=== PATIENT | female | born 1960 | race Caucasian/White ===

== ENCOUNTER 2020-10-28 00:18 | Inpatient (IN) | payer MEDICARE, MEDICAID, SELFPAY ==
--- NOTE | 2020-10-28 | ECG_ITS ---
Test Reason : TACHY, PROLNG QTC Blood Pressure : / mmHG Vent. Rate : 094 BPM Atrial Rate : 094 BPM P-R Int : 120 ms QRS Dur : 076 ms QT Int : 318 ms P-R-T Axes : 062 010 061 degrees QTc Int : 397 ms Poor data quality Normal sinus rhythm Nonspecific T wave abnormality Abnormal ECG No previous ECGs available Referred By: Danielle Dawkins Electronically Signed By:JOANNE TAI MD
[2020-10-28 02:08] VITALS: BP 127/66; PULSE 74; RESP 16; TEMP 36.6; O2SAT 95
--- NOTE | 2020-10-28 02:54 | PC.ADMIT ---
Addendum entered by Juanjose Miles RN 10/28/20 06:26: Allergy to Haldol Addendum entered by Juanjose Miles RN 10/28/20 03:10: Per crisis, Kae thinks she lives with her family and it's 1959. Kae may return to [facility] upon d/c. Diagnoses are Schizophrenia, Bipolar d/o, IDDM, Generalized Anxiety d/o,Hx Hyperlipidemia, GERD, Hypothyroidism and she was diagnosed with a UTI in the ED and is currently on keflex 500mg PO q12, last given 1500 10/27/20. Original Note: On 10/28 @ 0145 Pt came to the floor on a stretcher. Pt transferred from [facility]. Pt had to be moved from stretcher to bed because she would not move, Pt would respond to sternal rubs and force her eyes closed when trying and lift her eye lids. Pt did not participate in admission. Admission done with crisis and medical record. Pt resides at [facility] where she had altered mental status, was not sleeping and not orientated to time.
--- NOTE | 2020-10-28 03:30 | MHC.CARE ---
Pt was transported from [facility] for admission to . Pt was sent from [facility] on a Sect 12a for transportation that was not signed by a physician. Sect 12a was not valid, requiring a new one to be completed and signed. This typewriters functional tester contacted [facility] ED and spoke with the nurse, who stated and what would you like me to do? With the assistance of an cryptographic vulnerability analyst an attempt was made to engage the pt, who has been selectively catatonic, to sign the CV. This typewriters functional tester then contacted [facility] supervisor stripping to discuss pt's assessments and MSUs in order to complete a new Sect 12a with the [facility] ED Physician after assessing the pt and reviewing the documentation and medical workup from [facility]. Sect 12a & 12b were signed by Jessica Jhaveri DO following an assessment of the pt and review of symptoms.
[2020-10-28 05:58] LABS: Glucose, Whole Blood 141 mg/dL (60-115)
[2020-10-28 06:41] VITALS: BP 105/52; PULSE 66; RESP 16; TEMP 35.2; O2SAT 99
[2020-10-28 08:53] VITALS: BP 127/63; PULSE 83
[2020-10-28] MEDS: amLODIPine Besylate 10 MG TABLET PO (08:53)
[2020-10-28] MEDS: Aspirin Enteric Coated 81 MG TABLET.DR PO (08:54)
[2020-10-28] MEDS: Metoprolol Succinate ER 50 MG TAB.ER.24H PO (08:54)
[2020-10-28] MEDS: Levothyroxine Sodium 100 MCG TABLET PO (08:54)
[2020-10-28] MEDS: risperiDONE 2 MG TABLET 4 MG PO (08:54)
[2020-10-28] MEDS: Divalproex Sodium 500 MG TABLET.DR PO (08:54)
[2020-10-28 09:00] VITALS: RESP 14; TEMP 36.7; O2SAT 97
[2020-10-28] MEDS: cephALEXin 500 MG CAPSULE PO (09:20)
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
[2020-10-28] MEDS: LORazepam 1 MG TABLET 2 MG PO (12:34)
[2020-10-28 17:21] LABS: Glucose, Whole Blood 296 mg/dL (60-115)
--- NOTE | 2020-10-28 23:25 | PC.NURSE ---
Patient has been sedated/catatonic this shift. She did open her eyes slightly earlier in the shift but did not verbally respond. She did not eat dinner and has not voided this shift. Evening pills held due to sedation/catatonia. Patient clenched hands when efforts were made to do a POC at HS. Remains on a 1:1 for safety.
[2020-10-29] MEDS: Acetaminophen 325 MG TABLET 650 MG PO (00:07)
[2020-10-29 06:36] LABS: Glucose, Whole Blood 214 mg/dL (60-115)
[2020-10-29] MEDS: Levothyroxine Sodium 100 MCG TABLET PO (06:46)
[2020-10-29 07:13] VITALS: BP 139/65; PULSE 75; RESP 16; TEMP 36.4; O2SAT 97
[2020-10-29 08:28] LABS: MANUAL DIFF FLAG NO
[2020-10-29 08:32] LABS: Basophils Percent Auto 0.4 % (0-2); Eosinophils Absolute Auto 0.1 X10*3/uL (0.0-0.4); Eosinophils Percent Auto 1.9 % (0-4); Hematocrit 43.3 % (37-47); Hemoglobin 14.2 g/dl (12.0-16.0); Imm Gran Abs Auto 0.02 X10*3/uL (0.00-0.03); Imm Gran Pct Auto 0.4 % (0.0-0.4); Lymphocytes Absolute Auto 1.6 X10*3/uL (1.2-4.9); Lymphocytes Percent Auto 31.5 % (20-40); Mean Corpuscular HGB Conc 32.8 g/dl (31.0-35.0); Mean Corpuscular Hemoglobin 29.3 pg (27.0-33.0); Mean Corpuscular Volume 89.3 fL (80-98); Mean Platelet Volume 9.8 fL (9.4-12.3); Monocytes Absolute Auto 0.5 X10*3/uL (0.1-1.2); Monocytes Percent Auto 8.9 % (2-11); Neutrophils Absolute Auto 2.9 X10*3/uL (2.0-8.3); Neutrophils Percent Auto 56.9 % (45-73); Platelet Count 212 X10*3/uL (160-400); Red Blood Count 4.85 X10*6/uL (4.20-5.50); Red Cell Distribution Width 14.6 % (11.0-16.0); White Blood Count 5.1 X10*3/uL (4.8-10.8)
[2020-10-29 09:03] LABS: Cholesterol 181 mg/dL; HDL Cholesterol 47 mg/dL; LDL Cholesterol Calculated 115 mg/dl; Triglycerides 96 mg/dL
[2020-10-29 09:05] LABS: Alanine Aminotransferase 14 U/L (0-31); Albumin Level 4.3 g/dL (3.5-5.0); Alkaline Phosphatase 59 U/L (39-117); Anion Gap 15 (12-20); Aspartate Amino Transferase 11 U/L (5-31); Bilirubin Total 0.8 mg/dL (0.0-1.0); Blood Urea Nitrogen 14 mg/dL (9-16); Calcium 9.6 mg/dL (8.4-10.2); Carbon Dioxide 27 mmol/L (22-29); Chloride 105 mmol/L (96-108); Cholesterol 184 mg/dL; Estimated Average Glucose 140 mg/dL; Estimated Glomerular Filt Rate > 60; Glucose Fasting 202 mg/dL (60-99); HDL Cholesterol 48 mg/dL; Hemoglobin A1c % 6.5 %; LDL Cholesterol Calculated 118 mg/dl; Potassium 3.8 mmol/L (3.3-5.1); Sodium 143 mmol/L (135-145); Total Protein 7.1 g/dL (6.5-8.0); Triglycerides 94 mg/dL
[2020-10-29] MEDS: cephALEXin 500 MG CAPSULE PO (09:05)
[2020-10-29] MEDS: Divalproex Sodium 500 MG TABLET.DR PO (09:05)
[2020-10-29] MEDS: Metoprolol Succinate ER 50 MG TAB.ER.24H PO (09:05)
[2020-10-29] MEDS: risperiDONE 2 MG TABLET PO (09:05)
[2020-10-29] MEDS: Aspirin Enteric Coated 81 MG TABLET.DR PO (09:05)
[2020-10-29 09:06] VITALS: BP 167/90; PULSE 88
[2020-10-29] MEDS: amLODIPine Besylate 10 MG TABLET PO (09:06)
[2020-10-29] MEDS: Insulin Lispro 100 UNIT/ML 3 ML VIAL SUBCUT ×3 (09:15→16:54)
[2020-10-29 09:25] LABS: TSH reflex Free T4 13.32 uIU/mL (0.32-4.0)
[2020-10-29 09:26] LABS: Thyroid Stimulating Hormone 12.91 uIU/mL (0.32-4.0)
[2020-10-29] MEDS: LORazepam 1 MG TABLET PO ×3 (09:30→17:28)
[2020-10-29 09:33] LABS: Folate 9.9 ng/mL (> or = 4.0); Vitamin B12 434 pg/mL (200-900)
[2020-10-29 09:59] LABS: Reflex LDLD? No
[2020-10-29 10:05] LABS: Free T4 (Free Thyroxine) 1.35 ng/dL (0.71-1.85)
--- NOTE | 2020-10-29 11:03 | PC.NURSE ---
Pt signed CV. , social work, leander pal
--- NOTE | 2020-10-29 11:54 | P.CONIM_ITS ---
History of Present Illness Data of Consult Service Date: 10/29/20 Requesting physician: Jan Hernandez Primary Care Provider: Unknown Physician HPI Reason for consult: Routine Medical Consult for inpatient psychiatric admission This is a 60 yo F who is admitted to for ? catatonia. Routine medical consultation is sought for her chronic medical issues. History is severely limited due to the patients current psychiatric condition. History is obtained with the help of the patients current RN who speaks Indonesian. She answers limited questions about her medical history. It appears that she has a history of DM, hypertension, hypothyroid. Unable to obtain other medical/surgical/family/social history. Per her current RN, patient appears to be ambulating and speaking more compared to yesterday. Review of Systems Review of Systems: unable to assess to to current psychiatric condition [facility] Medical History (Updated 10/29/20 @ 12:01 by Maxwell Shelton MD) Diabetes 1.5, managed as type 2 GERD (gastroesophageal reflux disease) HTN (hypertension) Hyperlipemia Hypothyroid Pertinent family history: unable to assess Social History Smoking Status: Never smoker Second Hand Smoke Exposure: No Currently Displaying Signs/Symptoms of Drug Intoxication Withdrawal: No Advance Directives: No Advance Directives Information Provided: No Do you have thoughts of harming others: None Do you have a plan to hurt others: No Plan service: No Sexual orientation: Straight/Heterosexual Meds Allergies Allergy/AdvReac Type Severity Reaction Status Date / Time haloperidol [From Haldol] AdvReac Unknown Verified 10/28/20 06:32 Active Medications: Current Medications Generic Name Dose Route Start Last Admin Trade Name Freq PRN Reason Stop Dose Admin Acetaminophen 650 mg 10/28/20 05:54 10/29/20 00:07 Acetaminophen 325 Mg Tablet PO 650 mg Q6H PRN Administration Headache/Pain Mild Scale (1-3) Al Hydroxide/Mg Hydroxide 30 ml 10/28/20 05:54 Magnesium Hydrox/Alum Hydrox 30 Ml Oral.Susp PO Q6H PRN Heartburn/Nausea Amlodipine Besylate 10 mg 10/28/20 09:00 10/29/20 09:06 Amlodipine Besylate 10 Mg Tablet PO 10 mg DAILY [facility] Administration Aspirin 81 mg 10/28/20 09:00 10/29/20 09:05 Aspirin Enteric Coated 81 Mg Tablet. PO 81 mg DAILY [facility]ON[facility] Administration Cephalexin HCl 500 mg 10/28/20 09:00 10/29/20 09:05 Cephalexin 500 Mg Capsule PO 11/04/20 09:00 500 mg BID SONIA Administration Divalproex Sodium 500 mg 10/28/20 09:00 10/29/20 09:05 Divalproex Sodium 500 Mg Tablet.Dr PO 500 mg BID [facility]ONIA Administration Hydroxyzine HCl 25 mg 10/28/20 05:54 Hydroxyzine Hcl 25 Mg Tablet PO BEDTIME PRN Anxiety Insulin Glargine 28 unit 10/28/20 21:00 10/28/20 22:56 Insulin Glargine,Hum.Rec.Anlog 100 Unit/Ml 10 Ml Vial SUBCUT Not Given BEDTIME SONIA Insulin Human Lispro 0 unit 10/28/20 21:00 10/29/20 09:15 Insulin Lispro 100 Unit/Ml 3 Ml Vial SUBCUT 4 unit QIDACHS [facility] Administration Protocol Levothyroxine Sodium 100 mcg 10/28/20 09:00 10/29/20 06:46 Levothyroxine Sodium 100 Mcg Tablet PO 100 mcg DAILY@0600 SONIA Administration [place] Carbonate 300 mg 10/28/20 21:00 10/28/20 22:58 [place] Carbonate 300 Mg Tablet PO Not Given BEDTIME [facility]ON[facility] Lorazepam 1 mg 10/29/20 09:10 10/29/20 09:30 Lorazepam 1 Mg Tablet PO 1 mg TID [facility]ON[facility] Administration Magnesium Hydroxide 30 ml 10/28/20 05:54 Milk Of Magnesia 30 Ml Oral.Susp PO DAILY PRN Constipation Metoprolol Succinate 50 mg 10/28/20 09:00 10/29/20 09:05 Metoprolol Succinate Er 50 Mg Tab.Er.24h PO 50 mg DAILY [facility] Administration Pioglitazone HCl 15 mg 10/28/20 09:00 10/29/20 09:05 Pioglitazone Hcl 15 Mg Tablet PO 15 mg DAILY [facility] Administration Quetiapine Fumarate 150 mg 10/28/20 21:00 10/28/20 22:59 Quetiapine Fumarate 50 Mg Tablet PO Not Given BEDTIME [facility] Risperidone 2 mg 10/28/20 21:00 10/29/20 09:05 Risperidone 2 Mg Tablet PO 2 mg BID [facility] Administration Trazodone HCl 100 mg 10/28/20 06:30 Trazodone Hcl 100 Mg Tablet PO BEDTIME PRN Insomnia Home Medications Medication Instructions Recorded Confirmed Last Taken Type Aspirin Childrens 81 mg PO DAILY 10/28/20 10/28/20 10/27/20 09:45 History Keflex 500 mg PO BID 10/28/20 10/28/20 10/27/20 15:00 History amlodipine 10 mg PO DAILY 10/28/20 10/28/20 10/27/20 09:45 History divalproex 500 mg PO BID 10/28/20 10/28/20 1 Day Ago History ~10/27/20 500 mg insulin glargine 28 units BEDTIME 10/28/20 10/28/20 10/26/20 21:50 History levothyroxine 100 mcg PO DAILY 10/28/20 10/28/20 10/27/20 09:50 History lithium carbonate 300 mg PO BEDTIME 10/28/20 10/28/20 10/27/20 20:30 History metformin 1 tab PO BID 10/28/20 Unknown History metoprolol succinate 50 mg PO DAILY 10/28/20 10/28/20 3 Days Ago History ~10/25/20 50 mg pioglitazone 1 tab PO DAILY 10/28/20 Unknown History pioglitazone 15 mg PO DAILY 10/28/20 10/28/20 Unknown History quetiapine 150 mg PO DAILY 10/28/20 10/28/20 10/27/20 20:30 History risperidone 4 mg PO BID 10/28/20 10/28/20 10/27/20 20:30 History trazodone 100 mg PO NEEDED PRN 10/28/20 10/28/20 10/27/20 20:30 History Physical Exam Vital Signs and Narrative: Vital Signs: Last Vital Signs Temp 97.5 F 10/29/20 07:13 Pulse 88 10/29/20 09:06 Resp 16 10/29/20 07:13 BP 167/90 H 10/29/20 09:06 Pulse Ox 97 10/29/20 07:13 Const: Other: Constitutional - Awake and Alert, No apparent distress, ambulating in her room / ervin Eyes - PERRLA, EOMI Cardiovascular - S1S2 Respiratory - Diminished, no respiratory distres Gastrointestinal - NT / ND; +BS; No rebound or guarding Musculoskeletal - Normal inspection, normal ROM Skin - Warm/Dry Neurological - Awake and alert, ambulating in the room/hallway, non-focal exam Psychological - Flat affect Results Labs CBC and Chem 7: 10/29/20 07:51 05/20/21 07:51 Labs: Laboratory Results - last 24 hr 10/28/20 10/29/20 10/29/20 16:55 06:27 07:51 MCV 89.3 MCH 29.3 MCHC 32.8 RDW 14.6 Plt Count 212 MPV 9.8 Immature Gran % (Auto) 0.4 Neut % (Auto) 56.9 Lymph % (Auto) 31.5 [place] % (Auto) 8.9 Eos % (Auto) 1.9 Baso % (Auto) 0.4 Lymph # (Auto) 1.6 [place] # (Auto) 0.5 Eos # (Auto) 0.1 Baso # (Auto) 0.0 Abs Immat Gran (auto) 0.02 Absolute Neuts (auto) 2.9 Absolute Nucleated RBC 0.000 Nucleated RBC % (auto) 0.0 Anion Gap Estim Creat Clear Calc Estimated GFR POC Glucose 296 H 214 H Fasting Glucose Estimat Average Glucose Hemoglobin A1c % Calcium Total Bilirubin AST ALT Alkaline Phosphatase Total Protein Albumin Triglycerides Cholesterol LDL Cholesterol, Calc HDL Cholesterol Vitamin B12 Folate TSH Free T4 10/29/20 10/29/20 10/29/20 07:51 07:51 07:51 MCV MCH MCHC RDW Plt Count MPV Immature Gran % (Auto) Neut % (Auto) Lymph % (Auto) [place] % (Auto) Eos % (Auto) Baso % (Auto) Lymph # (Auto) [place] # (Auto) Eos # (Auto) Baso # (Auto) Abs Immat Gran (auto) Absolute Neuts (auto) Absolute Nucleated RBC Nucleated RBC % (auto) Anion Gap 15 Estim Creat Clear Calc TNP Estimated GFR > 60 POC Glucose Fasting Glucose 202 H Estimat Average Glucose 140 Hemoglobin A1c % 6.5 Calcium 9.6 Total Bilirubin 0.8 AST 11 ALT 14 Alkaline Phosphatase 59 Total Protein 7.1 Albumin 4.3 Triglycerides 94 Cholesterol 184 LDL Cholesterol, Calc 118 HDL Cholesterol 48 Vitamin B12 434 Folate 9.9 TSH 12.91 H Free T4 10/29/20 07:51 MCV MCH MCHC RDW Plt Count MPV Immature Gran % (Auto) Neut % (Auto) Lymph % (Auto) [place] % (Auto) Eos % (Auto) Baso % (Auto) Lymph # (Auto) [place] # (Auto) Eos # (Auto) Baso # (Auto) Abs Immat Gran (auto) Absolute Neuts (auto) Absolute Nucleated RBC Nucleated RBC % (auto) Anion Gap Estim Creat Clear Calc Estimated GFR POC Glucose Fasting Glucose Estimat Average Glucose Hemoglobin A1c % Calcium Total Bilirubin AST ALT Alkaline Phosphatase Total Protein Albumin Triglycerides 96 Cholesterol 181 LDL Cholesterol, Calc 115 HDL Cholesterol 47 Vitamin B12 Folate TSH 13.32 H Free T4 1.35 Assessment and Plan (1) Diabetes mellitus: Status: Acute This is a 60 yo F who is admitted on M5 for catatonia. Medical consult is for routine medical H&P for psych admission. Difficult to obtain full history due to her current state, but from minimal answers from the patient it appears shes a diabetic, hypertensive and has a history of hypothryoidism. Unclear if she has any other chronic medical issues. Of note -- she is on Keflex 500mg twice daily. The reason for this is not evident at this time. She also has an elevated TSH with a normal T4. Would recommend repeat TSH testing in a 4-6 weeks since we do not know her dosing history. Her A1C is 6.5. She is on Lantus + Sliding scale. Can continue this, but with an A1C of 6.5 - it is possible to be managed on oral medicaions. Can continue with POC and if they persistantly remain in the 150-200 range, could be possible discontinue sliding scale and just use metformin + Lantus. Lastly, her admission of EKG is poor quality. Would recommend repeat EKG when able. Obtain collateral information from PCP / outpatient medical providers. Please re-consult if any questions.
[2020-10-29 12:01] LABS: Glucose, Whole Blood 205 mg/dL (60-115)
--- NOTE | 2020-10-29 12:14 | PC.NURSE ---
T/w spoke with Amelia PONCE at [facility]. Amelia reported pt does not use a CPAP for sleep. Amelia also reported that pt was not on clozaril at [facility]. Amelia stated pt has only been a resident of [facility] for two weeks, and came from a closed facility in [place]. Nurse stated she does not have any records of medications from that facility.
[2020-10-29 15:19] VITALS: BP 132/62; PULSE 97
--- NOTE | 2020-10-29 18:00 | P.PNPSI_ITS ---
Subjective Subjective Date of Service: 10/29/20 Reason For Visit: Schizoaffective Disorder acutely psychotic Subjective Notes: Conditional Voluntary Interim History: Still awaiting to clarify patient has healthcare proxy or guardianship. Was awake enough earlier in the day was alert enough to be able to stay that she knew she needed help had psychiatric problems Mental Status Exam Mental Status Exam Narrative: When seen patient mostly lethargic and staring did not answer questions was able to to walk herself to the bathroom was able to speak to the nurse later in the day was not self-harming or aggressive Diagnostics Vital Signs (24Hr): Vital Signs - 24 hr 10/29/20 07:13 10/29/20 09:06 10/29/20 15:19 Temperature 97.5 F Pulse Rate 75 88 97 Respiratory Rate 16 Blood Pressure 139/65 167/90 H 132/62 Pulse Oximetry 97 Labs Results: 10/29/20 07:51 10/29/20 07:51 Labs: Laboratory Results - last 48 hr 10/28/20 10/28/20 10/29/20 05:22 16:55 06:27 WBC RBC Hgb Hct MCV MCH MCHC RDW Plt Count MPV Immature Gran % (Auto) Neut % (Auto) Lymph % (Auto) [place] % (Auto) Eos % (Auto) Baso % (Auto) Lymph # (Auto) [place] # (Auto) Eos # (Auto) Baso # (Auto) Abs Immat Gran (auto) Absolute Neuts (auto) Absolute Nucleated RBC Nucleated RBC % (auto) Sodium Potassium Chloride Carbon Dioxide Anion Gap BUN Creatinine Estim Creat Clear Calc Estimated GFR POC Glucose 141 H 296 H 214 H Fasting Glucose Estimat Average Glucose Hemoglobin A1c % Calcium Total Bilirubin AST ALT Alkaline Phosphatase Total Protein Albumin Triglycerides Cholesterol LDL Cholesterol, Calc HDL Cholesterol Vitamin B12 Folate TSH Free T4 10/29/20 10/29/20 10/29/20 07:51 07:51 07:51 WBC 5.1 RBC 4.85 Hgb 14.2 Hct 43.3 MCV 89.3 MCH 29.3 MCHC 32.8 RDW 14.6 Plt Count 212 MPV 9.8 Immature Gran % (Auto) 0.4 Neut % (Auto) 56.9 Lymph % (Auto) 31.5 [place] % (Auto) 8.9 Eos % (Auto) 1.9 Baso % (Auto) 0.4 Lymph # (Auto) 1.6 [place] # (Auto) 0.5 Eos # (Auto) 0.1 Baso # (Auto) 0.0 Abs Immat Gran (auto) 0.02 Absolute Neuts (auto) 2.9 Absolute Nucleated RBC 0.000 Nucleated RBC % (auto) 0.0 Sodium 143 Potassium 3.8 Chloride 105 Carbon Dioxide 27 Anion Gap 15 BUN 14 Creatinine 0.74 Estim Creat Clear Calc TNP Estimated GFR > 60 POC Glucose Fasting Glucose 202 H Estimat Average Glucose 140 Hemoglobin A1c % 6.5 Calcium 9.6 Total Bilirubin 0.8 AST 11 ALT 14 Alkaline Phosphatase 59 Total Protein 7.1 Albumin 4.3 Triglycerides 94 Cholesterol 184 LDL Cholesterol, Calc 118 HDL Cholesterol 48 Vitamin B12 Folate TSH 12.91 H Free T4 10/29/20 10/29/20 10/29/20 07:51 07:51 11:56 WBC RBC Hgb Hct MCV MCH MCHC RDW Plt Count MPV Immature Gran % (Auto) Neut % (Auto) Lymph % (Auto) [place] % (Auto) Eos % (Auto) Baso % (Auto) Lymph # (Auto) [place] # (Auto) Eos # (Auto) Baso # (Auto) Abs Immat Gran (auto) Absolute Neuts (auto) Absolute Nucleated RBC Nucleated RBC % (auto) Sodium Potassium Chloride Carbon Dioxide Anion Gap BUN Creatinine Estim Creat Clear Calc Estimated GFR POC Glucose 205 H Fasting Glucose Estimat Average Glucose Hemoglobin A1c % Calcium Total Bilirubin AST ALT Alkaline Phosphatase Total Protein Albumin Triglycerides 96 Cholesterol 181 LDL Cholesterol, Calc 115 HDL Cholesterol 47 Vitamin B12 434 Folate 9.9 TSH 13.32 H Free T4 1.35 Medications Medications Current Medications Generic Name Dose Route Start Last Admin Trade Name Freq PRN Reason Stop Dose Admin Acetaminophen 650 mg 10/28/20 05:54 10/29/20 00:07 Acetaminophen 325 Mg Tablet PO 650 mg Q6H PRN Administration Headache/Pain Mild Scale (1-3) Al Hydroxide/Mg Hydroxide 30 ml 10/28/20 05:54 Magnesium Hydrox/Alum Hydrox 30 Ml Oral.Susp PO Q6H PRN Heartburn/Nausea Amlodipine Besylate 10 mg 10/28/20 09:00 10/29/20 09:06 Amlodipine Besylate 10 Mg Tablet PO 10 mg DAILY SONIA Administration Aspirin 81 mg 10/28/20 09:00 10/29/20 09:05 Aspirin Enteric Coated 81 Mg Tablet.Dr PO 81 mg DAILY SONIA Administration Cephalexin HCl 500 mg 10/28/20 09:00 10/29/20 09:05 Cephalexin 500 Mg Capsule PO 11/04/20 09:00 500 mg BID SONIA Administration Divalproex Sodium 500 mg 10/28/20 09:00 10/29/20 09:05 Divalproex Sodium 500 Mg Tablet. PO 500 mg BID SONIA Administration Hydroxyzine HCl 25 mg 10/28/20 05:54 Hydroxyzine Hcl 25 Mg Tablet PO BEDTIME PRN Anxiety Insulin Glargine 28 unit 10/28/20 21:00 10/28/20 22:56 Insulin Glargine,Hum.Rec.Anlog 100 Unit/Ml 10 Ml Vial SUBCUT Not Given BEDTIME SONIA Insulin Human Lispro 0 unit 10/28/20 21:00 10/29/20 16:54 Insulin Lispro 100 Unit/Ml 3 Ml Vial SUBCUT 4 unit QIDACHS SONIA Administration Protocol Levothyroxine Sodium 100 mcg 10/28/20 09:00 10/29/20 06:46 Levothyroxine Sodium 100 Mcg Tablet PO 100 mcg DAILY@0600 SONIA Administration [place] Carbonate 300 mg 10/28/20 21:00 10/28/20 22:58 [place] Carbonate 300 Mg Tablet PO Not Given BEDTIME SONIA Lorazepam 1 mg 10/29/20 18:00 10/29/20 17:28 Lorazepam 1 Mg Tablet PO 10/29/20 18:01 1 mg ONCE ONE Administration Lorazepam 1.5 mg 10/29/20 21:00 Lorazepam 0.5 Mg Tablet PO TID SONIA Magnesium Hydroxide 30 ml 10/28/20 05:54 Milk Of Magnesia 30 Ml Oral.Susp PO DAILY PRN Constipation Metoprolol Succinate 50 mg 10/28/20 09:00 10/29/20 09:05 Metoprolol Succinate Er 50 Mg Tab.Er.24h PO 50 mg DAILY SONIA Administration Pioglitazone HCl 15 mg 10/28/20 09:00 10/29/20 09:05 Pioglitazone Hcl 15 Mg Tablet PO 15 mg DAILY SONIA Administration Quetiapine Fumarate 150 mg 10/28/20 21:00 10/28/20 22:59 Quetiapine Fumarate 50 Mg Tablet PO Not Given BEDTIME SONIA Risperidone 2 mg 10/28/20 21:00 10/29/20 09:05 Risperidone 2 Mg Tablet PO 2 mg BID SONIA Administration Trazodone HCl 100 mg 10/28/20 06:30 Trazodone Hcl 100 Mg Tablet PO BEDTIME PRN Insomnia Allergies Allergies Allergy/AdvReac Type Severity Reaction Status Date / Time haloperidol [From Haldol] AdvReac Unknown Verified 10/28/20 06:32 Assessment & Plan Assessment & Plan (1) Schizoaffective disorder without good prognostic features and with catatonia: Status: Acute Code(s): F25.9 - Schizoaffective disorder, unspecified; F06.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 (2) HTN (hypertension): Status: Acute Code(s): I10 - Essential (primary) hypertension Assessment and Plan: Still of not been able to obtain past history some response to Ativan increase as tolerated check Depakote level still trying to confirm guardianship versus healthcare proxy Greater than 50% of the session was spent on counseling and/or coordination of care Reason for contiued inpatient stay Substantial Risk for: inability to function, rapid decompensation and med/psych decompensation
[2020-10-29 18:50] VITALS: BP 143/74; PULSE 87; TEMP 35.9
[2020-10-29 20:42] LABS: Glucose, Whole Blood 217 mg/dL (60-115)
[2020-10-30 00:41] LABS: Glucose, Whole Blood 117 mg/dL (60-115)
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
[2020-10-30 04:21] LABS: Syphilis Screen Nonreactive (Nonreactive)
[2020-10-30 06:53] LABS: Glucose, Whole Blood 142 mg/dL (60-115)
[2020-10-30] MEDS: LORazepam 0.5 MG TABLET 1.5 MG PO ×3 (08:33→16:02)
[2020-10-30] MEDS: Divalproex Sodium 500 MG TABLET.DR PO (08:34)
[2020-10-30 08:35] VITALS: BP 138/67; BP 143/74; PULSE 83; PULSE 87
[2020-10-30] MEDS: Levothyroxine Sodium 100 MCG TABLET PO (08:35)
[2020-10-30] MEDS: Metoprolol Succinate ER 50 MG TAB.ER.24H PO (08:35)
[2020-10-30] MEDS: amLODIPine Besylate 10 MG TABLET PO (08:35)
[2020-10-30] MEDS: cephALEXin 500 MG CAPSULE PO ×2 (08:36→17:02)
[2020-10-30] MEDS: Aspirin Enteric Coated 81 MG TABLET.DR PO (08:38)
[2020-10-30] MEDS: risperiDONE 2 MG TABLET PO ×2 (08:42→17:01)
[2020-10-30 09:00] VITALS: BP 138/67; PULSE 83; RESP 16; TEMP 36.4; O2SAT 96
[2020-10-30 11:05] LABS: Valproate 19.3 mcg/mL (50.0-100.0)
[2020-10-30 11:54] LABS: Glucose, Whole Blood 236 mg/dL (60-115)
[2020-10-30] MEDS: Insulin Lispro 100 UNIT/ML 3 ML VIAL SUBCUT ×3 (12:46→20:43)
[2020-10-30 13:00] VITALS: BP 138/67; PULSE 84; RESP 18; TEMP 37.1; O2SAT 96
--- NOTE | 2020-10-30 16:23 | P.PNPSI_ITS ---
Subjective Subjective Date of Service: 10/30/20 Reason For Visit: Schizoaffective Disorder acutely psychotic Subjective Notes: Conditional Voluntary Guardianship: Yes Interim History: Patient intermittently more fluid and alert after taking Ativan periods of catatonia alternating with a hahn affect. Has often not been getting nighttime medication because of catatonia Medication Compliance: Intermittent Mental Status Exam Mental Status Exam Narrative: Patient seen walking intermittently on the unit conversing in [place]ian and simple sentences other times withdrawn rigid thigh in bed no reported self- harm no hallucination Diagnostics Vital Signs (24Hr): Vital Signs - 24 hr 10/29/20 18:50 10/30/20 08:35 10/30/20 09:00 Temperature 96.7 F L 97.5 F Pulse Rate 87 87 83 Respiratory Rate 16 Blood Pressure 143/74 H 143/74 H 138/67 Pulse Oximetry 96 10/30/20 13:00 Temperature 98.7 F Pulse Rate 84 Respiratory Rate 18 Blood Pressure 138/67 Pulse Oximetry 96 Labs Results: 10/29/20 07:51 10/29/20 07:51 Labs: Laboratory Results - last 48 hr 10/28/20 10/29/20 10/29/20 16:55 06:27 07:51 WBC 5.1 RBC 4.85 Hgb 14.2 Hct 43.3 MCV 89.3 MCH 29.3 MCHC 32.8 RDW 14.6 Plt Count 212 MPV 9.8 Immature Gran % (Auto) 0.4 Neut % (Auto) 56.9 Lymph % (Auto) 31.5 Page % (Auto) 8.9 Eos % (Auto) 1.9 Baso % (Auto) 0.4 Lymph # (Auto) 1.6 Page # (Auto) 0.5 Eos # (Auto) 0.1 Baso # (Auto) 0.0 Abs Immat Gran (auto) 0.02 Absolute Neuts (auto) 2.9 Absolute Nucleated RBC 0.000 Nucleated RBC % (auto) 0.0 Sodium Potassium Chloride Carbon Dioxide Anion Gap BUN Creatinine Estim Creat Clear Calc Estimated GFR POC Glucose 296 H 214 H Fasting Glucose Estimat Average Glucose Hemoglobin A1c % Calcium Total Bilirubin AST ALT Alkaline Phosphatase Total Protein Albumin Triglycerides Cholesterol LDL Cholesterol, Calc HDL Cholesterol Vitamin B12 Folate TSH Free T4 Valproic Acid T.pallidum Ab (EIA) 10/29/20 10/29/20 10/29/20 07:51 07:51 07:51 WBC RBC Hgb Hct MCV MCH MCHC RDW Plt Count MPV Immature Gran % (Auto) Neut % (Auto) Lymph % (Auto) Page % (Auto) Eos % (Auto) Baso % (Auto) Lymph # (Auto) Page # (Auto) Eos # (Auto) Baso # (Auto) Abs Immat Gran (auto) Absolute Neuts (auto) Absolute Nucleated RBC Nucleated RBC % (auto) Sodium 143 Potassium 3.8 Chloride 105 Carbon Dioxide 27 Anion Gap 15 BUN 14 Creatinine 0.74 Estim Creat Clear Calc TNP Estimated GFR > 60 POC Glucose Fasting Glucose 202 H Estimat Average Glucose 140 Hemoglobin A1c % 6.5 Calcium 9.6 Total Bilirubin 0.8 AST 11 ALT 14 Alkaline Phosphatase 59 Total Protein 7.1 Albumin 4.3 Triglycerides 94 Cholesterol 184 LDL Cholesterol, Calc 118 HDL Cholesterol 48 Vitamin B12 434 Folate 9.9 TSH 12.91 H Free T4 Valproic Acid T.pallidum Ab (EIA) 10/29/20 10/29/20 10/29/20 07:51 07:51 11:56 WBC RBC Hgb Hct MCV MCH MCHC RDW Plt Count MPV Immature Gran % (Auto) Neut % (Auto) Lymph % (Auto) Page % (Auto) Eos % (Auto) Baso % (Auto) Lymph # (Auto) [place] # (Auto) Eos # (Auto) Baso # (Auto) Abs Immat Gran (auto) Absolute Neuts (auto) Absolute Nucleated RBC Nucleated RBC % (auto) Sodium Potassium Chloride Carbon Dioxide Anion Gap BUN Creatinine Estim Creat Clear Calc Estimated GFR POC Glucose 205 H Fasting Glucose Estimat Average Glucose Hemoglobin A1c % Calcium Total Bilirubin AST ALT Alkaline Phosphatase Total Protein Albumin Triglycerides 96 Cholesterol 181 LDL Cholesterol, Calc 115 HDL Cholesterol 47 Vitamin B12 Folate TSH 13.32 H Free T4 1.35 Valproic Acid T.pallidum Ab (EIA) Nonreactive 10/29/20 10/29/20 10/30/20 16:47 22:29 06:35 WBC RBC Hgb Hct MCV MCH MCHC RDW Plt Count MPV Immature Gran % (Auto) Neut % (Auto) Lymph % (Auto) Page % (Auto) Eos % (Auto) Baso % (Auto) Lymph # (Auto) Page # (Auto) Eos # (Auto) Baso # (Auto) Abs Immat Gran (auto) Absolute Neuts (auto) Absolute Nucleated RBC Nucleated RBC % (auto) Sodium Potassium Chloride Carbon Dioxide Anion Gap BUN Creatinine Estim Creat Clear Calc Estimated GFR POC Glucose 217 H 117 H 142 H Fasting Glucose Estimat Average Glucose Hemoglobin A1c % Calcium Total Bilirubin AST ALT Alkaline Phosphatase Total Protein Albumin Triglycerides Cholesterol LDL Cholesterol, Calc HDL Cholesterol Vitamin B12 Folate TSH Free T4 Valproic Acid T.pallidum Ab (EIA) 10/30/20 10/30/20 09:34 11:47 WBC RBC Hgb Hct MCV MCH MCHC RDW Plt Count MPV Immature Gran % (Auto) Neut % (Auto) Lymph % (Auto) Page % (Auto) Eos % (Auto) Baso % (Auto) Lymph # (Auto) Page # (Auto) Eos # (Auto) Baso # (Auto) Abs Immat Gran (auto) Absolute Neuts (auto) Absolute Nucleated RBC Nucleated RBC % (auto) Sodium Potassium Chloride Carbon Dioxide Anion Gap BUN Creatinine Estim Creat Clear Calc Estimated GFR POC Glucose 236 H Fasting Glucose Estimat Average Glucose Hemoglobin A1c % Calcium Total Bilirubin AST ALT Alkaline Phosphatase Total Protein Albumin Triglycerides Cholesterol LDL Cholesterol, Calc HDL Cholesterol Vitamin B12 Folate TSH Free T4 Valproic Acid 19.3 L T.pallidum Ab (EIA) Medications Medications Current Medications Generic Name Dose Route Start Last Admin Trade Name Freq PRN Reason Stop Dose Admin Acetaminophen 650 mg 10/28/20 05:54 10/29/20 00:07 Acetaminophen 325 Mg Tablet PO 650 mg Q6H PRN Administration Headache/Pain Mild Scale (1-3) Al Hydroxide/Mg Hydroxide 30 ml 10/28/20 05:54 Magnesium Hydrox/Alum Hydrox 30 Ml Oral.Susp PO Q6H PRN Heartburn/Nausea Amlodipine Besylate 10 mg 10/28/20 09:00 10/30/20 08:35 Amlodipine Besylate 10 Mg Tablet PO 10 mg DAILY SONIA Administration Aspirin 81 mg 10/28/20 09:00 10/30/20 08:38 Aspirin Enteric Coated 81 Mg Tablet.Dr PO 81 mg DAILY SONIA Administration Cephalexin HCl 500 mg 10/30/20 17:00 Cephalexin 500 Mg Capsule PO 11/04/20 09:00 BID@0800,1700 SONIA Divalproex Sodium 750 mg 10/31/20 09:00 Divalproex Sodium Er 250 Mg Tab.Er.24h PO DAILY SONIA Hydroxyzine HCl 25 mg 10/28/20 05:54 Hydroxyzine Hcl 25 Mg Tablet PO BEDTIME PRN Anxiety Insulin Glargine 28 unit 10/28/20 21:00 10/29/20 21:15 Insulin Glargine,Hum.Rec.Anlog 100 Unit/Ml 10 Ml Vial SUBCUT Not Given BEDTIME [facility] Insulin Human Lispro 0 unit 10/28/20 21:00 10/30/20 12:46 Insulin Lispro 100 Unit/Ml 3 Ml Vial SUBCUT 4 unit QIDACHS [facility] Administration Protocol Levothyroxine Sodium 100 mcg 10/28/20 09:00 10/30/20 08:35 Levothyroxine Sodium 100 Mcg Tablet PO 100 mcg DAILY@0600 SONIA Administration [place] Carbonate 300 mg 10/31/20 09:00 [place] Carbonate 300 Mg Tablet PO DAILY SONIA Lorazepam 1.5 mg 10/29/20 21:00 10/30/20 16:02 Lorazepam 0.5 Mg Tablet PO 1.5 mg TID SONIA Administration Magnesium Hydroxide 30 ml 10/28/20 05:54 Milk Of Magnesia 30 Ml Oral.Susp PO DAILY PRN Constipation Metoprolol Succinate 50 mg 10/28/20 09:00 10/30/20 08:35 Metoprolol Succinate Er 50 Mg Tab.Er.24h PO 50 mg DAILY SONAI Administration Pioglitazone HCl 15 mg 10/28/20 09:00 10/30/20 08:38 Pioglitazone Hcl 15 Mg Tablet PO 15 mg DAILY SONIA Administration Risperidone 2 mg 10/30/20 18:00 Risperidone 2 Mg Tablet PO BID@0800,1800 [facility] Trazodone HCl 100 mg 10/28/20 06:30 Trazodone Hcl 100 Mg Tablet PO BEDTIME PRN Insomnia Allergies Allergies Allergy/AdvReac Type Severity Reaction Status Date / Time haloperidol [From Haldol] AdvReac Unknown Verified 10/28/20 06:32 Assessment & Plan Assessment & Plan (1) Schizoaffective disorder without good prognostic features and with catatonia: Status: Acute Code(s): F25.9 - Schizoaffective disorder, unspecified; F06.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 (2) HTN (hypertension): Status: Acute Code(s): I10 - Essential (primary) hypertension Assessment and Plan: Patient S case reviewed with guardian. Guardian also arises all medical treatment for patient including use of IM Ativan if needed for catatonia. Change t.i.d. meds to morning afternoon and early evening for better compliance Greater than 50% of the session was spent on counseling and/or coordination of care Reason for contiued inpatient stay Substantial Risk for: inability to function, rapid decompensation and med/psych decompensation
[2020-10-30 16:50] VITALS: BP 163/65; PULSE 100; TEMP 36.2
[2020-10-30 16:56] LABS: Glucose, Whole Blood 211 mg/dL (60-115)
[2020-10-30 20:40] LABS: Glucose, Whole Blood 244 mg/dL (60-115)
[2020-10-31 06:27] VITALS: BP 134/62; PULSE 86; RESP 18; TEMP 36.3; O2SAT 97
[2020-10-31 06:49] LABS: Glucose, Whole Blood 177 mg/dL (60-115)
--- NOTE | 2020-10-31 07:55 | HO.PSYCHPN ---
Subjective Subjective Date of Service: 10/31/20 Reason For Visit: Schizoaffective Disorder acutely psychotic Interim History: pt continues to be quiet, withdrawn and non responsive at times; she is compliant with meds and makes non verbal responses with open eyes, nodding but no speech Medication Compliance: Yes Side effects from medications: No Review of Systems Review of Systems unable to assess to to current psychiatric condition Mental Status Exam Mental Status Exam Narrative: Patient in bed no reported self-harm no hallucination Patient Appearance: Disheveled Behavior Comments: catatonic intermittently withdrawn Mood Description: Constricted, Depressed and Blunted Affect Description: Withdrawn and Blunted Ability to Follow Directions: Poor Speech Pattern: Impoverished Diagnostics Vital Signs (24Hr): Vital Signs - 24 hr 10/30/20 08:35 10/30/20 09:00 10/30/20 13:00 Temperature 97.5 F 98.7 F Pulse Rate 87 83 84 Respiratory Rate 16 18 Blood Pressure 143/74 H 138/67 138/67 Pulse Oximetry 96 96 10/30/20 16:50 10/31/20 06:27 Temperature 97.1 F 97.3 F Pulse Rate 100 86 Respiratory Rate 18 Blood Pressure 163/65 H 134/62 Pulse Oximetry 97 Labs Results: 10/29/20 07:51 10/29/20 07:51 Labs: Laboratory Results - last 48 hr 10/29/20 10/29/20 10/29/20 07:51 07:51 07:51 WBC 5.1 RBC 4.85 Hgb 14.2 Hct 43.3 MCV 89.3 MCH 29.3 MCHC 32.8 RDW 14.6 Plt Count 212 MPV 9.8 Immature Gran % (Auto) 0.4 Neut % (Auto) 56.9 Lymph % (Auto) 31.5 [place] % (Auto) 8.9 Eos % (Auto) 1.9 Baso % (Auto) 0.4 Lymph # (Auto) 1.6 [place] # (Auto) 0.5 Eos # (Auto) 0.1 Baso # (Auto) 0.0 Abs Immat Gran (auto) 0.02 Absolute Neuts (auto) 2.9 Absolute Nucleated RBC 0.000 Nucleated RBC % (auto) 0.0 Sodium 143 Potassium 3.8 Chloride 105 Carbon Dioxide 27 Anion Gap 15 BUN 14 Creatinine 0.74 Estim Creat Clear Calc TNP Estimated GFR > 60 POC Glucose Fasting Glucose 202 H Estimat Average Glucose 140 Hemoglobin A1c % 6.5 Calcium 9.6 Total Bilirubin 0.8 AST 11 ALT 14 Alkaline Phosphatase 59 Total Protein 7.1 Albumin 4.3 Triglycerides 94 Cholesterol 184 LDL Cholesterol, Calc 118 HDL Cholesterol 48 Vitamin B12 Folate TSH 12.91 H Free T4 Valproic Acid T.pallidum Ab (EIA) 10/29/20 10/29/20 10/29/20 07:51 07:51 07:51 WBC RBC Hgb Hct MCV MCH MCHC RDW Plt Count MPV Immature Gran % (Auto) Neut % (Auto) Lymph % (Auto) [place] % (Auto) Eos % (Auto) Baso % (Auto) Lymph # (Auto) [place] # (Auto) Eos # (Auto) Baso # (Auto) Abs Immat Gran (auto) Absolute Neuts (auto) Absolute Nucleated RBC Nucleated RBC % (auto) Sodium Potassium Chloride Carbon Dioxide Anion Gap BUN Creatinine Estim Creat Clear Calc Estimated GFR POC Glucose Fasting Glucose Estimat Average Glucose Hemoglobin A1c % Calcium Total Bilirubin AST ALT Alkaline Phosphatase Total Protein Albumin Triglycerides 96 Cholesterol 181 LDL Cholesterol, Calc 115 HDL Cholesterol 47 Vitamin B12 434 Folate 9.9 TSH 13.32 H Free T4 1.35 Valproic Acid T.pallidum Ab (EIA) Nonreactive 10/29/20 10/29/20 10/29/20 11:56 16:47 22:29 WBC RBC Hgb Hct MCV MCH MCHC RDW Plt Count MPV Immature Gran % (Auto) Neut % (Auto) Lymph % (Auto) [place] % (Auto) Eos % (Auto) Baso % (Auto) Lymph # (Auto) [place] # (Auto) Eos # (Auto) Baso # (Auto) Abs Immat Gran (auto) Absolute Neuts (auto) Absolute Nucleated RBC Nucleated RBC % (auto) Sodium Potassium Chloride Carbon Dioxide Anion Gap BUN Creatinine Estim Creat Clear Calc Estimated GFR POC Glucose 205 H 217 H 117 H Fasting Glucose Estimat Average Glucose Hemoglobin A1c % Calcium Total Bilirubin AST ALT Alkaline Phosphatase Total Protein Albumin Triglycerides Cholesterol LDL Cholesterol, Calc HDL Cholesterol Vitamin B12 Folate TSH Free T4 Valproic Acid T.pallidum Ab (EIA) 10/30/20 10/30/20 10/30/20 06:35 09:34 11:47 WBC RBC Hgb Hct MCV MCH MCHC RDW Plt Count MPV Immature Gran % (Auto) Neut % (Auto) Lymph % (Auto) [place] % (Auto) Eos % (Auto) Baso % (Auto) Lymph # (Auto) [place] # (Auto) Eos # (Auto) Baso # (Auto) Abs Immat Gran (auto) Absolute Neuts (auto) Absolute Nucleated RBC Nucleated RBC % (auto) Sodium Potassium Chloride Carbon Dioxide Anion Gap BUN Creatinine Estim Creat Clear Calc Estimated GFR POC Glucose 142 H 236 H Fasting Glucose Estimat Average Glucose Hemoglobin A1c % Calcium Total Bilirubin AST ALT Alkaline Phosphatase Total Protein Albumin Triglycerides Cholesterol LDL Cholesterol, Calc HDL Cholesterol Vitamin B12 Folate TSH Free T4 Valproic Acid 19.3 L T.pallidum Ab (EIA) 10/30/20 10/30/20 10/31/20 16:52 20:36 06:36 WBC RBC Hgb Hct MCV MCH MCHC RDW Plt Count MPV Immature Gran % (Auto) Neut % (Auto) Lymph % (Auto) [place] % (Auto) Eos % (Auto) Baso % (Auto) Lymph # (Auto) [place] # (Auto) Eos # (Auto) Baso # (Auto) Abs Immat Gran (auto) Absolute Neuts (auto) Absolute Nucleated RBC Nucleated RBC % (auto) Sodium Potassium Chloride Carbon Dioxide Anion Gap BUN Creatinine Estim Creat Clear Calc Estimated GFR POC Glucose 211 H 244 H 177 H Fasting Glucose Estimat Average Glucose Hemoglobin A1c % Calcium Total Bilirubin AST ALT Alkaline Phosphatase Total Protein Albumin Triglycerides Cholesterol LDL Cholesterol, Calc HDL Cholesterol Vitamin B12 Folate TSH Free T4 Valproic Acid T.pallidum Ab (EIA) Medications Medications Current Medications Generic Name Dose Route Start Last Admin Trade Name Freq PRN Reason Stop Dose Admin Acetaminophen 650 mg 10/28/20 05:54 10/29/20 00:07 Acetaminophen 325 Mg Tablet PO 650 mg Q6H PRN Administration Headache/Pain Mild Scale (1-3) Al Hydroxide/Mg Hydroxide 30 ml 10/28/20 05:54 Magnesium Hydrox/Alum Hydrox 30 Ml Oral.Susp PO Q6H PRN Heartburn/Nausea Amlodipine Besylate 10 mg 10/28/20 09:00 10/30/20 08:35 Amlodipine Besylate 10 Mg Tablet PO 10 mg DAILY SONIA Administration Aspirin 81 mg 10/28/20 09:00 10/30/20 08:38 Aspirin Enteric Coated 81 Mg Tablet.Dr PO 81 mg DAILY SONIA Administration Cephalexin HCl 500 mg 10/30/20 17:00 10/30/20 17:02 Cephalexin 500 Mg Capsule PO 11/04/20 09:00 500 mg BID@0800,1700 [facility] Administration Divalproex Sodium 750 mg 10/31/20 09:00 Divalproex Sodium Er 250 Mg Tab.Er.24h PO DAILY [facility] Hydroxyzine HCl 25 mg 10/28/20 05:54 Hydroxyzine Hcl 25 Mg Tablet PO BEDTIME PRN Anxiety Insulin Glargine 28 unit 10/31/20 09:00 Insulin Glargine,Hum.Rec.Anlog 100 Unit/Ml 10 Ml Vial SUBCUT DAILY [facility] Insulin Human Lispro 0 unit 10/28/20 21:00 10/30/20 20:43 Insulin Lispro 100 Unit/Ml 3 Ml Vial SUBCUT 4 unit QIDACHS [facility] Administration Protocol Levothyroxine Sodium 100 mcg 10/28/20 09:00 10/30/20 08:35 Levothyroxine Sodium 100 Mcg Tablet PO 100 mcg DAILY@0600 SONIA Administration [place] Carbonate 300 mg 10/31/20 09:00 [place] Carbonate 300 Mg Tablet PO DAILY [facility] Lorazepam 1.5 mg 10/31/20 08:00 Lorazepam 0.5 Mg Tablet PO TIDWM [facility] Magnesium Hydroxide 30 ml 10/28/20 05:54 Milk Of Magnesia 30 Ml Oral.Susp PO DAILY PRN Constipation Metoprolol Succinate 50 mg 10/28/20 09:00 10/30/20 08:35 Metoprolol Succinate Er 50 Mg Tab.Er.24h PO 50 mg DAILY SONIA Administration Pioglitazone HCl 15 mg 10/28/20 09:00 10/30/20 08:38 Pioglitazone Hcl 15 Mg Tablet PO 15 mg DAILY SONIA Administration Risperidone 2 mg 10/30/20 18:00 10/30/20 17:01 Risperidone 2 Mg Tablet PO 2 mg BID@0800,1800 [facility] Administration Trazodone HCl 100 mg 10/28/20 06:30 Trazodone Hcl 100 Mg Tablet PO BEDTIME PRN Insomnia Allergies Allergies Allergy/AdvReac Type Severity Reaction Status Date / Time haloperidol [From Haldol] AdvReac Unknown Verified 10/28/20 06:32 Assessment & Plan Assessment & Plan (1) Schizoaffective disorder without good prognostic features and with catatonia: Status: Acute Code(s): F25.9 - Schizoaffective disorder, unspecified; F06.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 (2) HTN (hypertension): Status: Acute Code(s): I10 - Essential (primary) hypertension Assessment and Plan: Continue to involve guardian.Continue meds to TID - morning afternoon and early evening for better compliance Greater than 50% of the session was spent on counseling and/or coordination of care Patient educated on: medication risk/benefits Informed Consent: does not understand and further education needed Reason for contiued inpatient stay Substantial Risk for: inability to function, rapid decompensation and med/psych decompensation
[2020-10-31 08:17] VITALS: BP 140/100; PULSE 96
[2020-10-31] MEDS: Metoprolol Succinate ER 50 MG TAB.ER.24H PO (08:17)
[2020-10-31] MEDS: Aspirin Enteric Coated 81 MG TABLET.DR PO (08:17)
[2020-10-31] MEDS: Divalproex Sodium ER 250 MG TAB.ER.24H 750 MG PO (08:17)
[2020-10-31 08:18] VITALS: BP 140/100; PULSE 96
[2020-10-31] MEDS: risperiDONE 2 MG TABLET PO ×2 (08:18→17:54)
[2020-10-31] MEDS: amLODIPine Besylate 10 MG TABLET PO (08:18)
[2020-10-31] MEDS: Lithium Carbonate 300 MG TABLET PO (08:18)
[2020-10-31] MEDS: cephALEXin 500 MG CAPSULE PO ×2 (08:18→17:54)
[2020-10-31] MEDS: Levothyroxine Sodium 100 MCG TABLET PO (08:19)
[2020-10-31] MEDS: Insulin Lispro 100 UNIT/ML 3 ML VIAL SUBCUT ×2 (08:19→21:02)
[2020-10-31] MEDS: Insulin Glargine,Hum.rec.anlog 100 UNIT/ML 10 ML VIAL 28 UNIT SUBCUT (08:20)
[2020-10-31] MEDS: LORazepam 0.5 MG TABLET 1.5 MG PO ×3 (08:34→17:54)
[2020-10-31 12:33] LABS: Glucose, Whole Blood 147 mg/dL (60-115)
[2020-10-31 18:46] VITALS: TEMP 36.8
[2020-10-31 21:05] LABS: Glucose, Whole Blood 264 mg/dL (60-115)
[2020-11-01] MEDS: Acetaminophen 325 MG TABLET 650 MG PO (00:30)
[2020-11-01] MEDS: hydrOXYzine HCL 25 MG TABLET PO (00:31)
[2020-11-01 06:24] LABS: Glucose, Whole Blood 158 mg/dL (60-115)
[2020-11-01] MEDS: Levothyroxine Sodium 100 MCG TABLET PO (06:34)
[2020-11-01 06:48] VITALS: BP 146/75; PULSE 95; RESP 18; TEMP 35.1; O2SAT 95
[2020-11-01] MEDS: Insulin Lispro 100 UNIT/ML 3 ML VIAL SUBCUT ×3 (08:05→18:09)
[2020-11-01] MEDS: Insulin Glargine,Hum.rec.anlog 100 UNIT/ML 10 ML VIAL 28 UNIT SUBCUT (08:06)
[2020-11-01 08:07] VITALS: BP 125/70; PULSE 84
[2020-11-01] MEDS: Divalproex Sodium ER 250 MG TAB.ER.24H 750 MG PO (08:07)
[2020-11-01] MEDS: LORazepam 0.5 MG TABLET 1.5 MG PO ×3 (08:07→18:09)
[2020-11-01] MEDS: cephALEXin 500 MG CAPSULE PO ×2 (08:07→18:09)
[2020-11-01] MEDS: Aspirin Enteric Coated 81 MG TABLET.DR PO (08:07)
[2020-11-01] MEDS: Metoprolol Succinate ER 50 MG TAB.ER.24H PO (08:07)
[2020-11-01 08:08] VITALS: BP 125/70; PULSE 84
[2020-11-01] MEDS: amLODIPine Besylate 10 MG TABLET PO (08:08)
[2020-11-01] MEDS: Lithium Carbonate 300 MG TABLET PO (08:08)
[2020-11-01] MEDS: risperiDONE 2 MG TABLET PO ×2 (08:08→18:09)
[2020-11-01 11:26] LABS: Glucose, Whole Blood 227 mg/dL (60-115)
[2020-11-01] MEDS: Milk of Magnesia 30 ML ORAL.SUSP PO (15:02)
[2020-11-01 17:38] LABS: Glucose, Whole Blood 169 mg/dL (60-115)
--- NOTE | 2020-11-01 18:06 | P.PNPSI_ITS ---
Subjective Subjective Date of Service: 11/01/20 Reason For Visit: Schizoaffective Disorder acutely psychotic Interim History: pt continues to be quiet, withdrawn and mute; she is slightly m ore responsive non verbally;; she is compliant with meds and makes non verbal responses with open eyes, nodding but no speech; Review of Systems Review of Systems unable to assess to to current psychiatric condition Mental Status Exam Mental Status Exam Narrative: Patient in bed no reported self-harm no hallucination Patient Appearance: Disheveled Behavior Comments: catatonic intermittently withdrawn Mood Description: Constricted, Depressed and Blunted Affect Description: Withdrawn and Blunted Ability to Follow Directions: Poor Speech Pattern: Impoverished Diagnostics Vital Signs (24Hr): Vital Signs - 24 hr 10/31/20 18:46 11/01/20 06:48 11/01/20 08:07 Temperature 98.3 F 95.1 F L Pulse Rate 95 84 Respiratory Rate 18 Blood Pressure 146/75 H 125/70 Pulse Oximetry 95 11/01/20 08:08 Temperature Pulse Rate 84 Respiratory Rate Blood Pressure 125/70 Pulse Oximetry Labs Results: 10/29/20 07:51 10/29/20 07:51 Labs: Laboratory Results - last 48 hr 10/30/20 10/31/20 10/31/20 20:36 06:36 12:23 POC Glucose 244 H 177 H 147 H 10/31/20 11/01/20 11/01/20 20:50 05:52 11:22 POC Glucose 264 H 158 H 227 H 11/01/20 16:53 POC Glucose 169 H Medications Medications Current Medications Generic Name Dose Route Start Last Admin Trade Name Zakiq PRN Reason Stop Dose Admin Acetaminophen 650 mg 10/28/20 05:54 11/01/20 00:30 Acetaminophen 325 Mg Tablet PO 650 mg Q6H PRN Administration Headache/Pain Mild Scale (1-3) Al Hydroxide/Mg Hydroxide 30 ml 10/28/20 05:54 Magnesium Hydrox/Alum Hydrox 30 Ml Oral.Susp PO Q6H PRN Heartburn/Nausea Amlodipine Besylate 10 mg 10/28/20 09:00 11/01/20 08:08 Amlodipine Besylate 10 Mg Tablet PO 10 mg DAILY SONIA Administration Aspirin 81 mg 10/28/20 09:00 11/01/20 08:07 Aspirin Enteric Coated 81 Mg Tablet. PO 81 mg DAILY SONIA Administration Cephalexin HCl 500 mg 10/30/20 17:00 11/01/20 08:07 Cephalexin 500 Mg Capsule PO 11/04/20 09:00 500 mg BID@0800,1700 SONIA Administration Divalproex Sodium 750 mg 10/31/20 09:00 11/01/20 08:07 Divalproex Sodium Er 250 Mg Tab.Er.24h PO 750 mg DAILY SONIA Administration Hydroxyzine HCl 25 mg 10/28/20 05:54 11/01/20 00:31 Hydroxyzine Hcl 25 Mg Tablet PO 25 mg BEDTIME PRN Administration Anxiety Insulin Glargine 28 unit 10/31/20 09:00 11/01/20 08:06 Insulin Glargine,Hum.Rec.Anlog 100 Unit/Ml 10 Ml Vial SUBCUT 28 unit DAILY SONIA Administration Insulin Human Lispro 0 unit 10/28/20 21:00 11/01/20 12:33 Insulin Lispro 100 Unit/Ml 3 Ml Vial SUBCUT 4 unit QIDACHS [facility] Administration Protocol Levothyroxine Sodium 100 mcg 10/28/20 09:00 11/01/20 06:34 Levothyroxine Sodium 100 Mcg Tablet PO 100 mcg DAILY@0600 SONIA Administration [place] Carbonate 300 mg 10/31/20 09:00 11/01/20 08:08 [place] Carbonate 300 Mg Tablet PO 300 mg DAILY SONIA Administration Lorazepam 1.5 mg 10/31/20 08:00 11/01/20 12:33 Lorazepam 0.5 Mg Tablet PO 1.5 mg TIDWM [facility]ONIA Administration Magnesium Hydroxide 30 ml 10/28/20 05:54 11/01/20 15:02 Milk Of Magnesia 30 Ml Oral.Susp PO 30 ml DAILY PRN Administration Constipation Metoprolol Succinate 50 mg 10/28/20 09:00 11/01/20 08:07 Metoprolol Succinate Er 50 Mg Tab.Er.24h PO 50 mg DAILY SONIA Administration Pioglitazone HCl 15 mg 10/28/20 09:00 11/01/20 08:07 Pioglitazone Hcl 15 Mg Tablet PO 15 mg DAILY SONIA Administration Risperidone 2 mg 10/30/20 18:00 11/01/20 08:08 Risperidone 2 Mg Tablet PO 2 mg BID@0800,1800 SONIA Administration Trazodone HCl 100 mg 10/28/20 06:30 Trazodone Hcl 100 Mg Tablet PO BEDTIME PRN Insomnia Allergies Allergies Allergy/AdvReac Type Severity Reaction Status Date / Time haloperidol [From Haldol] AdvReac Unknown Verified 10/28/20 06:32 Assessment & Plan Assessment & Plan (1) Schizoaffective disorder without good prognostic features and with cat atonia: Status: Acute Code(s): F25.9 - Schizoaffective disorder, unspecified; F06.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 (2) HTN (hypertension): Status: Acute Code(s): I10 - Essential (primary) hypertension Assessment and Plan: Continue to involve guardian.Continue meds to TID - morning afternoon and early evening for better compliance Greater than 50% of the session was spent on counseling and/or coordination of care Reason for contiued inpatient stay Substantial Risk for: harm to self, inability to function, rapid decompensation and med/psych decompensation
[2020-11-01 19:30] VITALS: BP 143/76; PULSE 92; TEMP 36.2; O2SAT 97
[2020-11-02] MEDS: Levothyroxine Sodium 100 MCG TABLET PO (06:07)
[2020-11-02 06:20] VITALS: BP 117/56; PULSE 106; RESP 20; TEMP 36; O2SAT 98
[2020-11-02 07:11] LABS: Glucose, Whole Blood 139 mg/dL (60-115)
[2020-11-02] MEDS: Insulin Glargine,Hum.rec.anlog 100 UNIT/ML 10 ML VIAL 28 UNIT SUBCUT (08:40)
[2020-11-02 08:41] VITALS: BP 134/61; PULSE 89
[2020-11-02] MEDS: risperiDONE 2 MG TABLET PO ×2 (08:41→17:40)
[2020-11-02] MEDS: amLODIPine Besylate 10 MG TABLET PO (08:41)
[2020-11-02] MEDS: Aspirin Enteric Coated 81 MG TABLET.DR PO (08:41)
[2020-11-02 08:45] VITALS: BP 134/61; PULSE 89
[2020-11-02] MEDS: Divalproex Sodium ER 250 MG TAB.ER.24H 750 MG PO (08:45)
[2020-11-02] MEDS: cephALEXin 500 MG CAPSULE PO ×2 (08:45→17:41)
[2020-11-02] MEDS: LORazepam 0.5 MG TABLET 1.5 MG PO ×3 (08:45→17:40)
[2020-11-02] MEDS: Metoprolol Succinate ER 50 MG TAB.ER.24H PO (08:45)
[2020-11-02] MEDS: Lithium Carbonate 300 MG TABLET PO (08:46)
[2020-11-02 11:41] LABS: Glucose, Whole Blood 273 mg/dL (60-115)
[2020-11-02] MEDS: Insulin Lispro 100 UNIT/ML 3 ML VIAL SUBCUT ×2 (11:58→17:42)
[2020-11-02 13:42] VITALS: BP 141/75; PULSE 100; RESP 16; TEMP 36.5; O2SAT 97
[2020-11-02 17:48] LABS: Glucose Urine UA >=1000 MG/DL (NEG); Leukocyte Esterase Urine NEG (NEG); Nitrite Urine NEG (NEG); PH 6.5 (5.0-8.0); Urine Blood NEG (NEG); Urine Ketones NEG (NEG); Urine Protein NEG (NEG-TRACE)
[2020-11-02 17:50] LABS: Appearance Urine CLEAR; Color Urine STRAW
[2020-11-02 17:58] LABS: Glucose, Whole Blood 152 mg/dL (60-115)
[2020-11-02 18:06] LABS: Bacteria Urine 1+ /LPF; RBC Urine 0-2 /HPF (0); Squamous Epithelial Cell Urine 2+ /LPF; WBC Urine 0-2 /HPF (0-4)
[2020-11-02 19:35] VITALS: BP 143/87; PULSE 104; TEMP 36.7
--- NOTE | 2020-11-02 22:54 | P.PNPSI_ITS ---
Subjective Subjective Date of Service: 11/02/20 Reason For Visit: Schizoaffective Disorder acutely psychotic Subjective Notes: Conditional Voluntary Guardianship: Yes Interim History: Patient for more withdrawn. Limited engagement. She is getting up been eating generally taking her medication know she is at [facility] briefly able to state she is depressed but has not been discussing. Has been denying active self-harming thoughts Medication Compliance: Intermittent Mental Status Exam Mental Status Exam Narrative: Patient in bed no reported self-harm no hallucination Patient Appearance: Disheveled Behavior Comments: catatonic intermittently withdrawn Mood Description: Constricted, Depressed and Blunted Affect Description: Withdrawn and Blunted Ability to Follow Directions: Poor Speech Pattern: Impoverished, Monotone and Long Pauses Hallucinations: None Depressive Symptoms: Loss of Int. in Activity, Increased Fatigue and Loss of Energy Judgement: Poor Diagnostics Vital Signs (24Hr): Vital Signs - 24 hr 11/02/20 06:20 11/02/20 08:41 11/02/20 08:45 Temperature 96.8 F Pulse Rate 106 H 89 89 Respiratory Rate 20 Blood Pressure 117/56 L 134/61 134/61 Pulse Oximetry 98 11/02/20 13:42 Temperature 97.7 F Pulse Rate 100 Respiratory Rate 16 Blood Pressure 141/75 H Pulse Oximetry 97 Labs Results: 10/29/20 07:51 10/29/20 07:51 Labs: Laboratory Results - last 48 hr 11/01/20 11/01/20 11/01/20 05:52 11:22 16:53 POC Glucose 158 H 227 H 169 H Urine Color Urine Appearance Urine pH Ur Specific [place] Urine Protein Urine Glucose (UA) Urine Ketones Urine Blood Urine Nitrite Ur Leukocyte Esterase Urine RBC Urine WBC Ur Squamous Epith Cells Urine Bacteria 11/02/20 11/02/20 11/02/20 06:10 11:25 17:10 POC Glucose 139 H 273 H 152 H Urine Color Urine Appearance Urine pH Ur Specific [place] Urine Protein Urine Glucose (UA) Urine Ketones Urine Blood Urine Nitrite Ur Leukocyte Esterase Urine RBC Urine WBC Ur Squamous Epith Cells Urine Bacteria 11/02/20 17:19 POC Glucose Urine Color STRAW Urine Appearance CLEAR Urine pH 6.5 Ur Specific [place] 1.010 Urine Protein NEG Urine Glucose (UA) >=1000 H Urine Ketones NEG Urine Blood NEG Urine Nitrite NEG Ur Leukocyte Esterase NEG Urine RBC 0-2 Urine WBC 0-2 Ur Squamous Epith Cells 2+ Urine Bacteria 1+ Medications Medications Current Medications Generic Name Dose Route Start Last Admin Trade Name Zakiq PRN Reason Stop Dose Admin Acetaminophen 650 mg 10/28/20 05:54 11/01/20 00:30 Acetaminophen 325 Mg Tablet PO 650 mg Q6H PRN Administration Headache/Pain Mild Scale (1-3) Al Hydroxide/Mg Hydroxide 30 ml 10/28/20 05:54 Magnesium Hydrox/Alum Hydrox 30 Ml Oral.Susp PO Q6H PRN Heartburn/Nausea Amlodipine Besylate 10 mg 10/28/20 09:00 11/02/20 08:41 Amlodipine Besylate 10 Mg Tablet PO 10 mg DAILY SONIA Administration Aspirin 81 mg 10/28/20 09:00 11/02/20 08:41 Aspirin Enteric Coated 81 Mg Tablet.Dr PO 81 mg DAILY SONIA Administration Cephalexin HCl 500 mg 10/30/20 17:00 11/02/20 17:41 Cephalexin 500 Mg Capsule PO 11/04/20 09:00 500 mg BID@0800,1700 SONIA Administration Divalproex Sodium 750 mg 10/31/20 09:00 11/02/20 08:45 Divalproex Sodium Er 250 Mg Tab.Er.24h PO 750 mg DAILY SONIA Administration Hydroxyzine HCl 50 mg 11/02/20 10:45 Hydroxyzine Hcl 25 Mg Tablet PO BEDTIME PRN Insomnia Insulin Glargine 28 unit 10/31/20 09:00 11/02/20 08:40 Insulin Glargine,Hum.Rec.Anlog 100 Unit/Ml 10 Ml Vial SUBCUT 28 unit DAILY SONIA Administration Insulin Human Lispro 0 unit 10/28/20 21:00 11/02/20 22:16 Insulin Lispro 100 Unit/Ml 3 Ml Vial SUBCUT Not Given QIDACHS [facility] Protocol Levothyroxine Sodium 100 mcg 10/28/20 09:00 11/02/20 06:07 Levothyroxine Sodium 100 Mcg Tablet PO 100 mcg DAILY@0600 SONIA Administration [place] Carbonate 300 mg 10/31/20 09:00 11/02/20 08:46 [place] Carbonate 300 Mg Tablet PO 300 mg DAILY SONIA Administration Lorazepam 1.5 mg 10/31/20 08:00 11/02/20 17:40 Lorazepam 0.5 Mg Tablet PO 1.5 mg TIDWM SONIA Administration Magnesium Hydroxide 30 ml 10/28/20 05:54 11/01/20 15:02 Milk Of Magnesia 30 Ml Oral.Susp PO 30 ml DAILY PRN Administration Constipation Metoprolol Succinate 50 mg 10/28/20 09:00 11/02/20 08:45 Metoprolol Succinate Er 50 Mg Tab.Er.24h PO 50 mg DAILY SONIA Administration Pioglitazone HCl 15 mg 10/28/20 09:00 11/02/20 08:45 Pioglitazone Hcl 15 Mg Tablet PO 15 mg DAILY SONIA Administration Risperidone 2 mg 10/30/20 18:00 11/02/20 17:40 Risperidone 2 Mg Tablet PO 2 mg BID@0800,1800 SONIA Administration Trazodone HCl 100 mg 10/28/20 06:30 Trazodone Hcl 100 Mg Tablet PO BEDTIME PRN Insomnia Allergies Allergies Allergy/AdvReac Type Severity Reaction Status Date / Time haloperidol [From Haldol] AdvReac Unknown Verified 10/28/20 06:32 Assessment & Plan Assessment & Plan (1) Schizoaffective disorder without good prognostic features and with catatonia: Status: Acute Code(s): F25.9 - Schizoaffective disorder, unspecified; F06.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 (2) HTN (hypertension): Status: Acute Code(s): I10 - Essential (primary) hypertension Assessment and Plan: Continue to involve guardian.Continue meds to TID - morning afternoon and early evening for better compliance Increase Ativan to 2 t.i.d. continue one-to-one patient with limited functioning and ADL functioning Greater than 50% of the session was spent on counseling and/or coordination of care Reason for contiued inpatient stay Substantial Risk for: inability to function, rapid decompensation and med/psych decompensation
[2020-11-03] MEDS: traZODone HCL 100 MG TABLET PO (01:35)
[2020-11-03] MEDS: hydrOXYzine HCL 25 MG TABLET 50 MG PO (01:36)
[2020-11-03 05:26] VITALS: BP 141/63; PULSE 81; RESP 18; TEMP 36.2; O2SAT 98
[2020-11-03 06:05] LABS: Glucose, Whole Blood 203 mg/dL (60-115)
[2020-11-03] MEDS: Levothyroxine Sodium 100 MCG TABLET PO (06:46)
[2020-11-03] MEDS: Aspirin Enteric Coated 81 MG TABLET.DR PO (10:11)
[2020-11-03] MEDS: cephALEXin 500 MG CAPSULE PO ×2 (10:11→18:06)
[2020-11-03] MEDS: Divalproex Sodium ER 250 MG TAB.ER.24H 750 MG PO (10:12)
[2020-11-03] MEDS: Lithium Carbonate 300 MG TABLET PO (10:12)
[2020-11-03] MEDS: LORazepam 0.5 MG TABLET 1.5 MG PO (10:13)
[2020-11-03] MEDS: risperiDONE 2 MG TABLET PO ×2 (10:13→18:05)
[2020-11-03 10:16] VITALS: BP 133/62; PULSE 89
[2020-11-03] MEDS: Metoprolol Succinate ER 50 MG TAB.ER.24H PO (10:16)
[2020-11-03 10:17] VITALS: BP 133/68; PULSE 69
[2020-11-03] MEDS: amLODIPine Besylate 10 MG TABLET PO (10:17)
[2020-11-03] MEDS: Insulin Glargine,Hum.rec.anlog 100 UNIT/ML 10 ML VIAL 28 UNIT SUBCUT (10:18)
[2020-11-03] MEDS: Insulin Lispro 100 UNIT/ML 3 ML VIAL SUBCUT ×2 (10:19→21:48)
[2020-11-03 12:19] LABS: Glucose, Whole Blood 137 mg/dL (60-115)
[2020-11-03] MEDS: LORazepam 0.5 MG TABLET 2 MG PO (15:16)
[2020-11-03 15:41] VITALS: BMI 33.7
[2020-11-03 17:47] LABS: Glucose, Whole Blood 143 mg/dL (60-115)
[2020-11-03 17:47] LABS: Glucose, Whole Blood 62 mg/dL (60-115)
[2020-11-03 18:00] VITALS: BP 129/76; PULSE 76; TEMP 36.4; O2SAT 98
[2020-11-03] MEDS: LORazepam 1 MG TABLET 2 MG PO (18:56)
--- NOTE | 2020-11-03 21:30 | P.PNPSI_ITS ---
Subjective Subjective Date of Service: 11/03/20 Reason For Visit: Schizoaffective Disorder acutely psychotic Subjective Notes: Conditional Voluntary Guardianship: Yes Mental Status Exam Mental Status Exam Narrative: Patient in bed no reported self-harm no hallucination Patient Appearance: Disheveled Patient Orientation: Person Level of Consciousness: Lethargic Patient Behavior: Isolative Behavior Comments: catatonic intermittently withdrawn Mood Description: Constricted, Depressed and Blunted Affect Description: Withdrawn and Blunted Ability to Follow Directions: Poor Speech Pattern: Impoverished, Monotone and Long Pauses Hallucinations: None Depressive Symptoms: Loss of Int. in Activity, Increased Fatigue and Loss of Energy Judgement: Poor Diagnostics Vital Signs (24Hr): Vital Signs - 24 hr 11/03/20 05:26 11/03/20 10:16 11/03/20 10:17 Temperature 97.1 F Pulse Rate 81 89 69 Respiratory Rate 18 Blood Pressure 141/63 H 133/62 133/68 Pulse Oximetry 98 11/03/20 18:00 Temperature 97.6 F Pulse Rate 76 Respiratory Rate Blood Pressure 129/76 Pulse Oximetry 98 Body Mass Index 33.7 Labs Results: 10/29/20 07:51 10/29/20 07:51 Labs: Laboratory Results - last 48 hr 11/02/20 11/02/20 11/02/20 06:10 11:25 17:10 POC Glucose 139 H 273 H 152 H Urine Color Urine Appearance Urine pH Ur Specific [place] Urine Protein Urine Glucose (UA) Urine Ketones Urine Blood Urine Nitrite Ur Leukocyte Esterase Urine RBC Urine WBC Ur Squamous Epith Cells Urine Bacteria 11/02/20 11/03/20 11/03/20 17:19 05:49 12:08 POC Glucose 203 H 137 H Urine Color STRAW Urine Appearance CLEAR Urine pH 6.5 Ur Specific [place] 1.010 Urine Protein NEG Urine Glucose (UA) >=1000 H Urine Ketones NEG Urine Blood NEG Urine Nitrite NEG Ur Leukocyte Esterase NEG Urine RBC 0-2 Urine WBC 0-2 Ur Squamous Epith Cells 2+ Urine Bacteria 1+ 11/03/20 11/03/20 16:54 17:35 POC Glucose 62 143 H Urine Color Urine Appearance Urine pH Ur Specific [place] Urine Protein Urine Glucose (UA) Urine Ketones Urine Blood Urine Nitrite Ur Leukocyte Esterase Urine RBC Urine WBC Ur Squamous Epith Cells Urine Bacteria Medications Medications Current Medications Generic Name Dose Route Start Last Admin Trade Name Freq PRN Reason Stop Dose Admin Acetaminophen 650 mg 10/28/20 05:54 11/01/20 00:30 Acetaminophen 325 Mg Tablet PO 650 mg Q6H PRN Administration Headache/Pain Mild Scale (1-3) Al Hydroxide/Mg Hydroxide 30 ml 10/28/20 05:54 Magnesium Hydrox/Alum Hydrox 30 Ml Oral.Susp PO Q6H PRN Heartburn/Nausea Amlodipine Besylate 10 mg 10/28/20 09:00 11/03/20 10:17 Amlodipine Besylate 10 Mg Tablet PO 10 mg DAILY SONIA Administration Aspirin 81 mg 10/28/20 09:00 11/03/20 10:11 Aspirin Enteric Coated 81 Mg Tablet.Dr PO 81 mg DAILY SONIA Administration Cephalexin HCl 500 mg 10/30/20 17:00 11/03/20 18:06 Cephalexin 500 Mg Capsule PO 11/04/20 09:00 500 mg BID@0800,1700 SONIA Administration Divalproex Sodium 750 mg 10/31/20 09:00 11/03/20 10:12 Divalproex Sodium Er 250 Mg Tab.Er.24h PO 750 mg DAILY SONIA Administration Hydroxyzine HCl 50 mg 11/02/20 10:45 11/03/20 01:36 Hydroxyzine Hcl 25 Mg Tablet PO 50 mg BEDTIME PRN Administration Insomnia Insulin Glargine 28 unit 10/31/20 09:00 11/03/20 10:18 Insulin Glargine,Hum.Rec.Anlog 100 Unit/Ml 10 Ml Vial SUBCUT 28 unit DAILY SONIA Administration Insulin Human Lispro 0 unit 10/28/20 21:00 11/03/20 17:40 Insulin Lispro 100 Unit/Ml 3 Ml Vial SUBCUT Not Given [facility] Protocol Levothyroxine Sodium 100 mcg 10/28/20 09:00 11/03/20 06:46 Levothyroxine Sodium 100 Mcg Tablet PO 100 mcg DAILY@0600 SONIA Administration [place] Carbonate 300 mg 10/31/20 09:00 11/03/20 10:12 [place] Carbonate 300 Mg Tablet PO 300 mg DAILY SONIA Administration Lorazepam 2 mg 11/03/20 18:00 11/03/20 18:56 Lorazepam 1 Mg Tablet PO 2 mg TIDWM@0800,1200,1800 SONIA Administration Magnesium Hydroxide 30 ml 10/28/20 05:54 11/01/20 15:02 Milk Of Magnesia 30 Ml Oral.Susp PO 30 ml DAILY PRN Administration Constipation Metoprolol Succinate 50 mg 10/28/20 09:00 11/03/20 10:16 Metoprolol Succinate Er 50 Mg Tab.Er.24h PO 50 mg DAILY SONIA Administration Pioglitazone HCl 15 mg 10/28/20 09:00 11/03/20 10:12 Pioglitazone Hcl 15 Mg Tablet PO 15 mg DAILY SONIA Administration Risperidone 2 mg 10/30/20 18:00 11/03/20 18:05 Risperidone 2 Mg Tablet PO 2 mg BID@0800,1800 SONIA Administration Trazodone HCl 100 mg 10/28/20 06:30 11/03/20 01:35 Trazodone Hcl 100 Mg Tablet PO 100 mg BEDTIME PRN Administration Insomnia Allergies Allergies Allergy/AdvReac Type Severity Reaction Status Date / Time haloperidol [From Haldol] AdvReac Unknown Verified 10/28/20 06:32 Assessment & Plan Assessment & Plan (1) Schizoaffective disorder without good prognostic features and with c atatonia: Status: Acute Code(s): F25.9 - Schizoaffective disorder, unspecified; F06.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 (2) HTN (hypertension): Status: Acute Code(s): I10 - Essential (primary) hypertension Assessment and Plan: Continue to involve guardian.Continue meds to TID - morning afternoon and early evening for better compliance Increase Ativan to 2 t.i.d. continue one-to-one patient with limited functioning and ADL functioning consider iv ativan Greater than 50% of the session was spent on counseling and/or coordination of care Reason for contiued inpatient stay Substantial Risk for: inability to function and rapid decompensation
[2020-11-03 21:38] LABS: Glucose, Whole Blood 169 mg/dL (60-115)
[2020-11-04] MEDS: hydrOXYzine HCL 25 MG TABLET 50 MG PO (02:21)
[2020-11-04] MEDS: traZODone HCL 100 MG TABLET PO (02:21)
[2020-11-04] MEDS: Levothyroxine Sodium 100 MCG TABLET PO (05:08)
[2020-11-04 06:04] LABS: Glucose, Whole Blood 94 mg/dL (60-115)
[2020-11-04] MEDS: cephALEXin 500 MG CAPSULE PO (08:34)
[2020-11-04] MEDS: Lithium Carbonate 300 MG TABLET PO (08:34)
[2020-11-04 08:35] VITALS: BP 119/63; PULSE 82
[2020-11-04] MEDS: Metoprolol Succinate ER 50 MG TAB.ER.24H PO (08:35)
[2020-11-04] MEDS: Aspirin Enteric Coated 81 MG TABLET.DR PO (08:35)
[2020-11-04] MEDS: Divalproex Sodium ER 250 MG TAB.ER.24H 750 MG PO (08:35)
[2020-11-04] MEDS: risperiDONE 2 MG TABLET PO (08:35)
[2020-11-04] MEDS: amLODIPine Besylate 10 MG TABLET PO (08:35)
[2020-11-04] MEDS: LORazepam 1 MG TABLET 2 MG PO ×3 (08:40→17:27)
[2020-11-04] MEDS: Insulin Glargine,Hum.rec.anlog 100 UNIT/ML 10 ML VIAL 28 UNIT SUBCUT (08:43)
[2020-11-04 11:55] LABS: Glucose, Whole Blood 245 mg/dL (60-115)
[2020-11-04] MEDS: Insulin Lispro 100 UNIT/ML 3 ML VIAL SUBCUT ×3 (12:02→20:30)
[2020-11-04] MEDS: Acetaminophen 325 MG TABLET 650 MG PO (13:39)
[2020-11-04 13:44] VITALS: BP 128/69; PULSE 83; RESP 16; O2SAT 97
[2020-11-04 17:10] LABS: Glucose, Whole Blood 154 mg/dL (60-115)
[2020-11-04] MEDS: risperiDONE 3 MG TABLET PO (17:12)
[2020-11-04 17:47] VITALS: BP 126/61; PULSE 81; RESP 18; TEMP 36.3; O2SAT 96
[2020-11-04 20:26] VITALS: BP 134/73; PULSE 98; RESP 18; TEMP 36.4; O2SAT 94
[2020-11-04 20:30] LABS: Glucose, Whole Blood 168 mg/dL (60-115)
--- NOTE | 2020-11-04 20:40 | HO.PSYCHPN ---
Subjective Subjective Date of Service: 11/04/20 Reason For Visit: Schizoaffective Disorder acutely psychotic Subjective Notes: Conditional Voluntary Guardianship: Yes Interim History: Patient seems more psychotic and fearful depressed withdrawn was talking about loss of her children earlier in the week today a verbalizing paranoia fear hallucinations Medication Compliance: Yes Side effects from medications: Yes Mental Status Exam Mental Status Exam Patient Appearance: Fatigued and Unkempt Patient Orientation: Person Level of Consciousness: Drowsy and Lethargic Patient Behavior: Guarded, Suspicious, Fearful and Isolative Mood Description: Depressed, Flat and Apprehensive Affect Description: Flat and Apprehensive Ability to Follow Directions: Poor Abnormal Motor Activity Signs and Symptoms: Psychomotor Retardation Judgement: Poor Diagnostics Vital Signs (24Hr): Vital Signs - 24 hr 11/04/20 08:35 11/04/20 13:44 11/04/20 17:47 Temperature 97.4 F Pulse Rate 82 83 81 Respiratory Rate 16 18 Blood Pressure 119/63 128/69 126/61 Pulse Oximetry 97 96 11/04/20 20:26 Temperature 97.5 F Pulse Rate 98 Respiratory Rate 18 Blood Pressure 134/73 Pulse Oximetry 94 Body Mass Index 33.7 Labs Results: 10/29/20 07:51 10/29/20 07:51 Labs: Laboratory Results - last 48 hr 11/03/20 11/03/20 11/03/20 05:49 12:08 16:54 POC Glucose 203 H 137 H 62 11/03/20 11/03/20 11/04/20 17:35 21:16 05:50 POC Glucose 143 H 169 H 94 11/04/20 11/04/20 11/04/20 11:50 17:06 20:21 POC Glucose 245 H 154 H 168 H Medications Medications Current Medications Generic Name Dose Route Start Last Admin Trade Name Freq PRN Reason Stop Dose Admin Acetaminophen 650 mg 10/28/20 05:54 11/04/20 13:39 Acetaminophen 325 Mg Tablet PO 650 mg Q6H PRN Administration Headache/Pain Mild Scale (1-3) Al Hydroxide/Mg Hydroxide 30 ml 10/28/20 05:54 Magnesium Hydrox/Alum Hydrox 30 Ml Oral.Susp PO Q6H PRN Heartburn/Nausea Amlodipine Besylate 10 mg 10/28/20 09:00 11/04/20 08:35 Amlodipine Besylate 10 Mg Tablet PO 10 mg DAILY SONIA Administration Aspirin 81 mg 05/19/21 09:00 11/04/20 08:35 Aspirin Enteric Coated 81 Mg Tablet.Dr PO 81 mg DAILY SONIA Administration Divalproex Sodium 750 mg 10/31/20 09:00 11/04/20 08:35 Divalproex Sodium Er 250 Mg Tab.Er.24h PO 750 mg DAILY SONIA Administration Hydroxyzine HCl 50 mg 11/02/20 10:45 11/04/20 02:21 Hydroxyzine Hcl 25 Mg Tablet PO 50 mg BEDTIME PRN Administration Insomnia Insulin Glargine 28 unit 10/31/20 09:00 11/04/20 08:43 Insulin Glargine,Hum.Rec.Anlog 100 Unit/Ml 10 Ml Vial SUBCUT 28 unit DAILY SONIA Administration Insulin Human Lispro 0 unit 10/28/20 21:00 11/04/20 20:30 Insulin Lispro 100 Unit/Ml 3 Ml Vial SUBCUT 2 unit QIDACHS SONIA Administration Protocol Levothyroxine Sodium 100 mcg 10/28/20 09:00 11/04/20 05:08 Levothyroxine Sodium 100 Mcg Tablet PO 100 mcg DAILY@0600 SONIA Administration [place] Carbonate 300 mg 10/31/20 09:00 11/04/20 08:34 [place] Carbonate 300 Mg Tablet PO 300 mg DAILY SONIA Administration Lorazepam 2 mg 11/03/20 18:00 11/04/20 17:27 Lorazepam 1 Mg Tablet PO 2 mg TIDWM@0800,1200,1800 SONIA Administration Magnesium Hydroxide 30 ml 10/28/20 05:54 11/01/20 15:02 Milk Of Magnesia 30 Ml Oral.Susp PO 30 ml DAILY PRN Administration Constipation Metoprolol Succinate 50 mg 10/28/20 09:00 11/04/20 08:35 Metoprolol Succinate Er 50 Mg Tab.Er.24h PO 50 mg DAILY SONIA Administration Pioglitazone HCl 15 mg 10/28/20 09:00 11/04/20 08:35 Pioglitazone Hcl 15 Mg Tablet PO 15 mg DAILY SONIA Administration Risperidone 3 mg 11/04/20 18:00 11/04/20 17:12 Risperidone 3 Mg Tablet PO 3 mg BID@0800,1800 SONIA Administration Trazodone HCl 100 mg 10/28/20 06:30 11/04/20 02:21 Trazodone Hcl 100 Mg Tablet PO 100 mg BEDTIME PRN Administration Insomnia Allergies Allergies Allergy/AdvReac Type Severity Reaction Status Date / Time haloperidol [From Haldol] AdvReac Unknown Verified 10/28/20 06:32 Assessment & Plan Assessment & Plan (1) Schizoaffective disorder without good prognostic features and with catatonia: Status: Acute Code(s): F25.9 - Schizoaffective disorder, unspecified; F06.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 (2) HTN (hypertension): Status: Acute Code(s): I10 - Essential (primary) hypertension Assessment and Plan: Continue to involve guardian.Continue meds to TID - morning afternoon and early evening for better compliance Increase Ativan to 2 t.i.d. continue one-to-one patient with limited functioning and ADL functioning consider iv ativan unclear if sedated from ativan initially appeared catatonia now inc paranoia aziza will try and add ect to nydia Greater than 50% of the session was spent on counseling and/or coordination of care Reason for contiued inpatient stay Substantial Risk for: inability to function and rapid decompensation
[2020-11-05] MEDS: hydrOXYzine HCL 25 MG TABLET 50 MG PO (01:49)
[2020-11-05] MEDS: traZODone HCL 100 MG TABLET PO (01:49)
[2020-11-05 05:49] LABS: Glucose, Whole Blood 108 mg/dL (60-115)
[2020-11-05] MEDS: LORazepam 1 MG TABLET 2 MG PO ×3 (09:01→19:23)
[2020-11-05] MEDS: Aspirin Enteric Coated 81 MG TABLET.DR PO (09:01)
[2020-11-05 09:02] VITALS: BP 126/75; PULSE 84
[2020-11-05] MEDS: risperiDONE 3 MG TABLET PO ×2 (09:02→16:55)
[2020-11-05] MEDS: amLODIPine Besylate 10 MG TABLET PO (09:02)
[2020-11-05] MEDS: Divalproex Sodium ER 250 MG TAB.ER.24H 750 MG PO (09:02)
[2020-11-05] MEDS: Levothyroxine Sodium 100 MCG TABLET PO (09:02)
[2020-11-05] MEDS: Lithium Carbonate 300 MG TABLET PO (09:02)
[2020-11-05] MEDS: Metoprolol Succinate ER 50 MG TAB.ER.24H PO (09:02)
[2020-11-05] MEDS: Insulin Glargine,Hum.rec.anlog 100 UNIT/ML 10 ML VIAL 28 UNIT SUBCUT (09:30)
[2020-11-05 11:46] VITALS: BMI 34.4
[2020-11-05 11:48] LABS: Glucose, Whole Blood 250 mg/dL (60-115)
[2020-11-05] MEDS: Insulin Lispro 100 UNIT/ML 3 ML VIAL SUBCUT ×2 (12:02→16:54)
[2020-11-05 16:55] LABS: Glucose, Whole Blood 166 mg/dL (60-115)
[2020-11-05 17:41] VITALS: BP 129/89; RESP 16; TEMP 36.6
[2020-11-05 20:39] LABS: Glucose, Whole Blood 84 mg/dL (60-115)
--- NOTE | 2020-11-05 21:35 | HO.PSYCHPN ---
Subjective Subjective Date of Service: 11/05/20 Reason For Visit: Schizoaffective Disorder acutely psychotic Subjective Notes: Conditional Voluntary Guardianship: Yes Interim History: Patient out of bed more today had a hahn range of affect still limited responses more ambulatory Mental Status Exam Mental Status Exam Patient Appearance: Fatigued and Unkempt Patient Orientation: Person Level of Consciousness: Drowsy Patient Behavior: Guarded, Posturing, Suspicious, Fearful and Isolative Mood Description: Depressed, Flat and Apprehensive Affect Description: Flat and Apprehensive Ability to Follow Directions: Poor Abnormal Motor Activity Signs and Symptoms: Psychomotor Retardation Judgement: Poor Diagnostics Vital Signs (24Hr): Vital Signs - 24 hr 11/05/20 09:02 11/05/20 17:41 Temperature 97.9 F Pulse Rate 84 Respiratory Rate 16 Blood Pressure 126/75 129/89 Body Mass Index 34.4 Labs Results: 10/29/20 07:51 10/29/20 07:51 Labs: Laboratory Results - last 48 hr 11/03/20 11/04/20 11/04/20 21:16 05:50 11:50 POC Glucose 169 H 94 245 H 11/04/20 11/04/20 11/05/20 17:06 20:21 05:35 POC Glucose 154 H 168 H 108 11/05/20 11/05/20 11/05/20 11:43 16:51 20:35 POC Glucose 250 H 166 H 84 Medications Medications Current Medications Generic Name Dose Route Start Last Admin Trade Name Freq PRN Reason Stop Dose Admin Acetaminophen 650 mg 10/28/20 05:54 11/04/20 13:39 Acetaminophen 325 Mg Tablet PO 650 mg Q6H PRN Administration Headache/Pain Mild Scale (1-3) Al Hydroxide/Mg Hydroxide 30 ml 10/28/20 05:54 Magnesium Hydrox/Alum Hydrox 30 Ml Oral.Susp PO Q6H PRN Heartburn/Nausea Amlodipine Besylate 10 mg 10/28/20 09:00 11/05/20 09:02 Amlodipine Besylate 10 Mg Tablet PO 10 mg DAILY [facility] Administration Aspirin 81 mg 10/28/20 09:00 11/05/20 09:01 Aspirin Enteric Coated 81 Mg Tablet. PO 81 mg DAILY SONIA Administration Divalproex Sodium 750 mg 10/31/20 09:00 11/05/20 09:02 Divalproex Sodium Er 250 Mg Tab.Er.24h PO 750 mg DAILY SONIA Administration Hydroxyzine HCl 50 mg 11/02/20 10:45 11/05/20 01:49 Hydroxyzine Hcl 25 Mg Tablet PO 50 mg BEDTIME PRN Administration Insomnia Insulin Glargine 28 unit 10/31/20 09:00 11/05/20 09:30 Insulin Glargine,Hum.Rec.Anlog 100 Unit/Ml 10 Ml Vial SUBCUT 28 unit DAILY SONIA Administration Insulin Human Lispro 0 unit 10/28/20 21:00 11/05/20 20:38 Insulin Lispro 100 Unit/Ml 3 Ml Vial SUBCUT Not Given QIDACHS [facility] Protocol Levothyroxine Sodium 100 mcg 10/28/20 09:00 11/05/20 09:02 Levothyroxine Sodium 100 Mcg Tablet PO 100 mcg DAILY@0600 SONIA Administration [place] Carbonate 300 mg 10/31/20 09:00 11/05/20 09:02 [place] Carbonate 300 Mg Tablet PO 300 mg DAILY SONIA Administration Lorazepam 2 mg 11/03/20 18:00 11/05/20 19:23 Lorazepam 1 Mg Tablet PO 2 mg TIDWM@0800,1200,1800 SONIA Administration Magnesium Hydroxide 30 ml 10/28/20 05:54 11/01/20 15:02 Milk Of Magnesia 30 Ml Oral.Susp PO 30 ml DAILY PRN Administration Constipation Metoprolol Succinate 50 mg 10/28/20 09:00 11/05/20 09:02 Metoprolol Succinate Er 50 Mg Tab.Er.24h PO 50 mg DAILY SONIA Administration Pioglitazone HCl 15 mg 10/28/20 09:00 11/05/20 09:01 Pioglitazone Hcl 15 Mg Tablet PO 15 mg DAILY SONIA Administration Risperidone 3 mg 11/04/20 18:00 11/05/20 16:55 Risperidone 3 Mg Tablet PO 3 mg BID@0800,1800 SONIA Administration Trazodone HCl 100 mg 10/28/20 06:30 11/05/20 01:49 Trazodone Hcl 100 Mg Tablet PO 100 mg BEDTIME PRN Administration Insomnia Allergies Allergies Allergy/AdvReac Type Severity Reaction Status Date / Time haloperidol [From Haldol] AdvReac Unknown Verified 10/28/20 06:32 Assessment & Plan Assessment & Plan (1) Schizoaffective disorder without good prognostic features and with catatonia: Status: Acute Code(s): F25.9 - Schizoaffective disorder, unspecified; F06.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 (2) HTN (hypertension): Status: Acute Code(s): I10 - Essential (primary) hypertension Assessment and Plan: Continue to involve guardian.Continue meds to TID - morning afternoon and early evening for better compliance Increase Ativan to 2 t.i.d. continue one-to-one patient with limited functioning and ADL functioning consider iv ativan unclear if sedated from ativan initially appeared catatonia now inc paranoia aziza will try and add ect to [place] Risperdal increased to 3 b.i.d. otherwise continue plan of care Latuda and ECT added to care plan with Duran as possible. Still trying to get additional information from past hospitalization [facility] has been unresponsive Greater than 50% of the session was spent on counseling and/or coordination of care Reason for contiued inpatient stay Substantial Risk for: inability to function and rapid decompensation
[2020-11-06] MEDS: hydrOXYzine HCL 25 MG TABLET 50 MG PO (01:26)
[2020-11-06] MEDS: traZODone HCL 100 MG TABLET PO (01:26)
[2020-11-06 06:35] VITALS: BP 144/65; PULSE 84; RESP 18; TEMP 36.1; O2SAT 96
[2020-11-06 06:38] VITALS: BP 144/65; PULSE 84; RESP 18; TEMP 36.1; O2SAT 96
[2020-11-06] MEDS: Levothyroxine Sodium 100 MCG TABLET PO (06:52)
[2020-11-06 06:53] LABS: Glucose, Whole Blood 131 mg/dL (60-115)
[2020-11-06 08:43] VITALS: BP 122/60; PULSE 71
[2020-11-06] MEDS: Aspirin Enteric Coated 81 MG TABLET.DR PO (08:43)
[2020-11-06] MEDS: Divalproex Sodium ER 250 MG TAB.ER.24H 750 MG PO (08:43)
[2020-11-06] MEDS: amLODIPine Besylate 10 MG TABLET PO (08:43)
[2020-11-06] MEDS: Lithium Carbonate 300 MG TABLET PO (08:43)
[2020-11-06] MEDS: risperiDONE 3 MG TABLET PO ×2 (08:43→19:47)
[2020-11-06] MEDS: Metoprolol Succinate ER 50 MG TAB.ER.24H PO (08:44)
[2020-11-06] MEDS: LORazepam 1 MG TABLET 2 MG PO ×3 (08:46→19:47)
[2020-11-06] MEDS: Insulin Glargine,Hum.rec.anlog 100 UNIT/ML 10 ML VIAL 28 UNIT SUBCUT (08:52)
--- NOTE | 2020-11-06 10:26 | HO.PSYCHPN ---
Subjective Subjective Date of Service: 11/06/20 Reason For Visit: Schizoaffective Disorder acutely psychotic Subjective Notes: Conditional Voluntary Guardianship: Yes Interim History: PT alternating psychotic agitated with periods of withdrawl lethargy other periods psychotic agitation Medication Compliance: Intermittent Mental Status Exam Mental Status Exam Patient Appearance: Fatigued and Unkempt Patient Orientation: Person Level of Consciousness: Drowsy and Sedated Patient Behavior: Guarded, Suspicious, Fearful and Isolative Mood Description: Depressed, Flat and Apprehensive Affect Description: Flat and Apprehensive Ability to Follow Directions: Poor Abnormal Motor Activity Signs and Symptoms: Psychomotor Retardation Judgement: Poor Diagnostics Vital Signs (24Hr): Vital Signs - 24 hr 11/09/20 14:00 11/09/20 16:30 Temperature 98.1 F 98.4 F Pulse Rate 100 86 Respiratory Rate 18 Blood Pressure 158/73 H 140/65 H Pulse Oximetry 96 Body Mass Index 34.4 Labs Results: 10/29/20 07:51 10/29/20 07:51 Labs: Laboratory Results - last 48 hr 11/08/20 11/08/20 11/08/20 12:11 17:08 19:52 POC Glucose 144 H 279 H 216 H 11/09/20 11/09/20 11/09/20 07:59 11:48 17:03 POC Glucose 154 H 203 H 215 H 11/09/20 11/10/20 11/10/20 20:49 06:19 08:50 POC Glucose 202 H 171 H 158 H Medications Medications Current Medications Generic Name Dose Route Start Last Admin Trade Name Freq PRN Reason Stop Dose Admin Acetaminophen 650 mg 10/28/20 05:54 11/04/20 13:39 Acetaminophen 325 Mg Tablet PO 650 mg Q6H PRN Administration Headache/Pain Mild Scale (1-3) Al Hydroxide/Mg Hydroxide 30 ml 10/28/20 05:54 Magnesium Hydrox/Alum Hydrox 30 Ml Oral.Susp PO Q6H PRN Heartburn/Nausea Amlodipine Besylate 10 mg 10/28/20 09:00 11/09/20 08:27 Amlodipine Besylate 10 Mg Tablet PO 10 mg DAILY SONIA Administration Aspirin 81 mg 10/28/20 09:00 11/09/20 08:27 Aspirin Enteric Coated 81 Mg Tablet.Dr PO 81 mg DAILY SONIA Administration Divalproex Sodium 750 mg 10/31/20 09:00 11/09/20 08:26 Divalproex Sodium Er 250 Mg Tab.Er.24h PO 750 mg DAILY SONIA Administration Hydroxyzine HCl 50 mg 11/02/20 10:45 11/06/20 01:26 Hydroxyzine Hcl 25 Mg Tablet PO 50 mg BEDTIME PRN Administration Insomnia Insulin Glargine 28 unit 10/31/20 09:00 11/10/20 09:10 Insulin Glargine,Hum.Rec.Anlog 100 Unit/Ml 10 Ml Vial SUBCUT 28 unit DAILY SONIA Administration Insulin Human Lispro 0 unit 10/28/20 21:00 11/10/20 09:11 Insulin Lispro 100 Unit/Ml 3 Ml Vial SUBCUT 2 unit QIDACHS [facility] Administration Protocol Levothyroxine Sodium 100 mcg 10/28/20 09:00 11/09/20 07:06 Levothyroxine Sodium 100 Mcg Tablet PO 100 mcg DAILY@0600 SONIA Administration [place] Carbonate 300 mg 10/31/20 09:00 11/09/20 08:27 [place] Carbonate 300 Mg Tablet PO 300 mg DAILY SONIA Administration Lorazepam 2 mg 11/08/20 19:21 11/09/20 16:25 Lorazepam 1 Mg Tablet PO 2 mg TID PRN Administration anxiety Lorazepam 2 mg 11/08/20 22:09 11/09/20 21:10 Lorazepam 1 Mg Tablet PO 2 mg TID@0800,1200,1800 SONIA Administration Magnesium Hydroxide 30 ml 10/28/20 05:54 11/08/20 17:02 Milk Of Magnesia 30 Ml Oral.Susp PO 30 ml DAILY PRN Administration Constipation Metoprolol Succinate 50 mg 10/28/20 09:00 11/09/20 08:26 Metoprolol Succinate Er 50 Mg Tab.Er.24h PO 50 mg DAILY SONIA Administration Pioglitazone HCl 15 mg 10/28/20 09:00 11/09/20 08:27 Pioglitazone Hcl 15 Mg Tablet PO 15 mg DAILY SONIA Administration Risperidone 3 mg 11/04/20 18:00 11/09/20 21:10 Risperidone 3 Mg Tablet PO 3 mg BID@0800,1800 SONIA Administration Trazodone HCl 100 mg 10/28/20 06:30 11/09/20 21:09 Trazodone Hcl 100 Mg Tablet PO 100 mg BEDTIME PRN Administration Insomnia Allergies Allergies Allergy/AdvReac Type Severity Reaction Status Date / Time haloperidol [From Haldol] AdvReac Unknown Verified 10/28/20 06:32 Assessment & Plan Assessment & Plan (1) Schizoaffective disorder without good prognostic features and with catatonia: Status: Acute Code(s): F25.9 - Schizoaffective disorder, unspecified; F06.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 (2) HTN (hypertension): Status: Acute Code(s): I10 - Essential (primary) hypertension Assessment and Plan: Continue current regimen and care with involvement of the guardian inc risperadol consider ect Greater than 50% of the session was spent on counseling and/or coordination of care Reason for contiued inpatient stay Substantial Risk for: inability to function, rapid decompensation and med/psych decompensation
[2020-11-06 11:44] LABS: Glucose, Whole Blood 179 mg/dL (60-115)
[2020-11-06] MEDS: Insulin Lispro 100 UNIT/ML 3 ML VIAL SUBCUT (12:10)
[2020-11-06 14:18] VITALS: BP 113/58; PULSE 77; RESP 16; TEMP 36.2; O2SAT 97
[2020-11-06 17:20] LABS: Glucose, Whole Blood 132 mg/dL (60-115)
[2020-11-06 20:14] LABS: Glucose, Whole Blood 75 mg/dL (60-115)
[2020-11-06 21:15] VITALS: BP 131/72; PULSE 87; TEMP 36.3
[2020-11-07 07:30] LABS: Glucose, Whole Blood 78 mg/dL (60-115)
[2020-11-07 08:36] VITALS: BP 130/74; PULSE 81
[2020-11-07] MEDS: Metoprolol Succinate ER 50 MG TAB.ER.24H PO (08:36)
[2020-11-07] MEDS: Divalproex Sodium ER 250 MG TAB.ER.24H 750 MG PO (08:36)
[2020-11-07] MEDS: risperiDONE 3 MG TABLET PO ×2 (08:36→18:58)
[2020-11-07] MEDS: Lithium Carbonate 300 MG TABLET PO (08:37)
[2020-11-07] MEDS: Levothyroxine Sodium 100 MCG TABLET PO (08:37)
[2020-11-07] MEDS: amLODIPine Besylate 10 MG TABLET PO (08:37)
[2020-11-07] MEDS: Aspirin Enteric Coated 81 MG TABLET.DR PO (08:37)
[2020-11-07] MEDS: LORazepam 1 MG TABLET 2 MG PO ×3 (08:40→18:58)
[2020-11-07] MEDS: Insulin Glargine,Hum.rec.anlog 100 UNIT/ML 10 ML VIAL 28 UNIT SUBCUT (08:46)
--- NOTE | 2020-11-07 11:28 | HO.PSYCHPN ---
Subjective Subjective Date of Service: 11/07/20 Reason For Visit: Schizoaffective Disorder acutely psychotic Review of Systems Review of Systems unable to assess to to current psychiatric condition Mental Status Exam Mental Status Exam Patient Appearance: Fatigued and Unkempt Patient Orientation: Person Level of Consciousness: Drowsy Patient Behavior: Guarded, Posturing, Suspicious, Fearful and Isolative Mood Description: Depressed, Flat and Apprehensive Affect Description: Flat and Apprehensive Ability to Follow Directions: Poor Abnormal Motor Activity Signs and Symptoms: Psychomotor Retardation Judgement: Poor Diagnostics Vital Signs (24Hr): Vital Signs - 24 hr 11/06/20 14:18 11/06/20 21:15 11/07/20 08:36 Temperature 97.2 F 97.3 F Pulse Rate 77 87 81 Respiratory Rate 16 Blood Pressure 113/58 L 131/72 130/74 Pulse Oximetry 97 Body Mass Index 34.4 Labs Results: 10/29/20 07:51 10/29/20 07:51 Labs: Laboratory Results - last 48 hr 11/05/20 11/05/20 11/05/20 11:43 16:51 20:35 POC Glucose 250 H 166 H 84 11/06/20 11/06/20 11/06/20 06:45 11:39 17:14 POC Glucose 131 H 179 H 132 H 11/06/20 11/07/20 19:53 07:26 POC Glucose 75 78 Medications Medications Current Medications Generic Name Dose Route Start Last Admin Trade Name Freq PRN Reason Stop Dose Admin Acetaminophen 650 mg 10/28/20 05:54 11/04/20 13:39 Acetaminophen 325 Mg Tablet PO 650 mg Q6H PRN Administration Headache/Pain Mild Scale (1-3) Al Hydroxide/Mg Hydroxide 30 ml 10/28/20 05:54 Magnesium Hydrox/Alum Hydrox 30 Ml Oral.Susp PO Q6H PRN Heartburn/Nausea Amlodipine Besylate 10 mg 10/28/20 09:00 11/07/20 08:37 Amlodipine Besylate 10 Mg Tablet PO 10 mg DAILY SONIA Administration Aspirin 81 mg 10/28/20 09:00 11/07/20 08:37 Aspirin Enteric Coated 81 Mg Tablet.Dr PO 81 mg DAILY SONIA Administration Divalproex Sodium 750 mg 10/31/20 09:00 11/07/20 08:36 Divalproex Sodium Er 250 Mg Tab.Er.24h PO 750 mg DAILY SONIA Administration Hydroxyzine HCl 50 mg 11/02/20 10:45 11/06/20 01:26 Hydroxyzine Hcl 25 Mg Tablet PO 50 mg BEDTIME PRN Administration Insomnia Insulin Glargine 28 unit 10/31/20 09:00 11/07/20 08:46 Insulin Glargine,Hum.Rec.Anlog 100 Unit/Ml 10 Ml Vial SUBCUT 28 unit DAILY SONIA Administration Insulin Human Lispro 0 unit 10/28/20 21:00 11/07/20 08:46 Insulin Lispro 100 Unit/Ml 3 Ml Vial SUBCUT Not Given QIDACHS [facility] Protocol Levothyroxine Sodium 100 mcg 10/28/20 09:00 11/07/20 08:37 Levothyroxine Sodium 100 Mcg Tablet PO 100 mcg DAILY@0600 SONIA Administration [place] Carbonate 300 mg 10/31/20 09:00 11/07/20 08:37 [place] Carbonate 300 Mg Tablet PO 300 mg DAILY SONIA Administration Lorazepam 2 mg 11/03/20 18:00 11/07/20 08:40 Lorazepam 1 Mg Tablet PO 2 mg TIDWM@0800,1200,1800 SONIA Administration Magnesium Hydroxide 30 ml 10/28/20 05:54 11/01/20 15:02 Milk Of Magnesia 30 Ml Oral.Susp PO 30 ml DAILY PRN Administration Constipation Metoprolol Succinate 50 mg 10/28/20 09:00 11/07/20 08:36 Metoprolol Succinate Er 50 Mg Tab.Er.24h PO 50 mg DAILY SONIA Administration Pioglitazone HCl 15 mg 10/28/20 09:00 11/07/20 08:37 Pioglitazone Hcl 15 Mg Tablet PO 15 mg DAILY SONIA Administration Risperidone 3 mg 11/04/20 18:00 11/07/20 08:36 Risperidone 3 Mg Tablet PO 3 mg BID@0800,1800 SONIA Administration Trazodone HCl 100 mg 10/28/20 06:30 11/06/20 01:26 Trazodone Hcl 100 Mg Tablet PO 100 mg BEDTIME PRN Administration Insomnia Allergies Allergies Allergy/AdvReac Type Severity Reaction Status Date / Time haloperidol [From Haldol] AdvReac Unknown Verified 10/28/20 06:32 Assessment & Plan Assessment & Plan (1) Schizoaffective disorder without good prognostic features and with catatonia: Status: Acute Code(s): F25.9 - Schizoaffective disorder, unspecified; F06.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 (2) HTN (hypertension): Status: Acute Code(s): I10 - Essential (primary) hypertension Assessment and Plan: Continue to involve guardian.Continue meds to TID - morning afternoon and early evening for better compliance Increase Ativan to 2 t.i.d. continue one-to-one patient with limited functioning and ADL functioning consider iv ativan unclear if sedated from ativan initially appeared catatonia now inc paranoia aziza will try and add ect to duran Porterdal increased to 3 b.i.d. otherwise continue plan of care Latuda and ECT added to care plan with Duran as possible. Still trying to get additional information from past hospitalization [facility] has been unresponsive Greater than 50% of the session was spent on counseling and/or coordination of care Reason for contiued inpatient stay Substantial Risk for: harm to self
[2020-11-07 12:00] LABS: Glucose, Whole Blood 174 mg/dL (60-115)
[2020-11-07] MEDS: Insulin Lispro 100 UNIT/ML 3 ML VIAL SUBCUT ×3 (12:24→22:14)
[2020-11-07 13:00] VITALS: BP 134/63; PULSE 83; RESP 16; TEMP 36; O2SAT 98
[2020-11-07 17:35] VITALS: BP 133/67; PULSE 90; TEMP 36.3
[2020-11-07 21:47] LABS: Glucose, Whole Blood 180 mg/dL (60-115)
[2020-11-07 21:47] LABS: Glucose, Whole Blood 167 mg/dL (60-115)
[2020-11-08 06:10] VITALS: BP 151/78; PULSE 94; RESP 16; TEMP 36.5; O2SAT 97
[2020-11-08] MEDS: Levothyroxine Sodium 100 MCG TABLET PO (06:46)
[2020-11-08 07:13] LABS: Glucose, Whole Blood 75 mg/dL (60-115)
[2020-11-08 08:56] VITALS: BP 151/78; PULSE 94
[2020-11-08] MEDS: Insulin Glargine,Hum.rec.anlog 100 UNIT/ML 10 ML VIAL 28 UNIT SUBCUT (08:56)
[2020-11-08] MEDS: Divalproex Sodium ER 250 MG TAB.ER.24H 750 MG PO (08:56)
[2020-11-08] MEDS: Aspirin Enteric Coated 81 MG TABLET.DR PO (08:56)
[2020-11-08] MEDS: amLODIPine Besylate 10 MG TABLET PO (08:56)
[2020-11-08] MEDS: risperiDONE 3 MG TABLET PO ×2 (08:56→19:46)
[2020-11-08] MEDS: Metoprolol Succinate ER 50 MG TAB.ER.24H PO (08:56)
[2020-11-08] MEDS: LORazepam 1 MG TABLET 2 MG PO ×3 (08:56→19:47)
[2020-11-08] MEDS: Lithium Carbonate 300 MG TABLET PO (08:56)
--- NOTE | 2020-11-08 09:02 | HO.PSYCHPN ---
Subjective Subjective Date of Service: 11/08/20 Reason For Visit: Schizoaffective Disorder acutely psychotic Subjective Notes: Conditional Voluntary Guardianship: No Medical Problems Affecting Mental Status: No Interim History: Patient was seen in rounds today. She was in bed. She is essentially nonverbal. She does attempt to answer questions but words do not come out. She is not going to any groups. Eating about 20-30% of her meals. She is med compliant. It appears that she is still having some psychotic symptoms and response to internal stimuli. No changes were made today Medication Compliance: Yes Side effects from medications: No Attending Groups: No Review of Systems Review of Systems unable to assess to to current psychiatric condition Yes all other systems are reviewed and are negative Mental Status Exam Mental Status Exam Patient Appearance: Fatigued and Unkempt Patient Orientation: Person Level of Consciousness: Drowsy and Sedated Patient Behavior: Guarded, Suspicious, Fearful and Isolative Mood Description: Depressed, Flat and Apprehensive Affect Description: Flat and Apprehensive Ability to Follow Directions: Poor Abnormal Motor Activity Signs and Symptoms: Psychomotor Retardation Judgement: Poor Diagnostics Vital Signs (24Hr): Vital Signs - 24 hr 11/07/20 13:00 11/07/20 17:35 11/08/20 06:10 Temperature 96.8 F 97.4 F 97.7 F Pulse Rate 83 90 94 Respiratory Rate 16 16 Blood Pressure 134/63 133/67 151/78 H Pulse Oximetry 98 97 Body Mass Index 34.4 Labs Results: 10/29/20 07:51 10/29/20 07:51 Labs: Laboratory Results - last 48 hr 11/06/20 11/06/20 11/06/20 11:39 17:14 19:53 POC Glucose 179 H 132 H 75 11/07/20 11/07/20 11/07/20 07:26 11:49 17:05 POC Glucose 78 174 H 180 H 11/07/20 11/08/20 21:19 06:54 POC Glucose 167 H 75 Medications Medications Current Medications Generic Name Dose Route Start Last Admin Trade Name Freq PRN Reason Stop Dose Admin Acetaminophen 650 mg 10/28/20 05:54 11/04/20 13:39 Acetaminophen 325 Mg Tablet PO 650 mg Q6H PRN Administration Headache/Pain Mild Scale (1-3) Al Hydroxide/Mg Hydroxide 30 ml 10/28/20 05:54 Magnesium Hydrox/Alum Hydrox 30 Ml Oral.Susp PO Q6H PRN Heartburn/Nausea Amlodipine Besylate 10 mg 10/28/20 09:00 11/07/20 08:37 Amlodipine Besylate 10 Mg Tablet PO 10 mg DAILY SONIA Administration Aspirin 81 mg 10/28/20 09:00 11/07/20 08:37 Aspirin Enteric Coated 81 Mg Tablet.Dr PO 81 mg DAILY SONIA Administration Divalproex Sodium 750 mg 10/31/20 09:00 11/07/20 08:36 Divalproex Sodium Er 250 Mg Tab.Er.24h PO 750 mg DAILY SONIA Administration Hydroxyzine HCl 50 mg 11/02/20 10:45 11/06/20 01:26 Hydroxyzine Hcl 25 Mg Tablet PO 50 mg BEDTIME PRN Administration Insomnia Insulin Glargine 28 unit 10/31/20 09:00 11/07/20 08:46 Insulin Glargine,Hum.Rec.Anlog 100 Unit/Ml 10 Ml Vial SUBCUT 28 unit DAILY SONIA Administration Insulin Human Lispro 0 unit 10/28/20 21:00 11/07/20 22:14 Insulin Lispro 100 Unit/Ml 3 Ml Vial SUBCUT 2 [facility] Administration Protocol Levothyroxine Sodium 100 mcg 10/28/20 09:00 11/08/20 06:46 Levothyroxine Sodium 100 Mcg Tablet PO 100 mcg DAILY@0600 SONIA Administration [place] Carbonate 300 mg 10/31/20 09:00 11/07/20 08:37 [place] Carbonate 300 Mg Tablet PO 300 mg DAILY SONIA Administration Lorazepam 2 mg 11/03/20 18:00 11/07/20 18:58 Lorazepam 1 Mg Tablet PO 2 mg TIDWM@0800,1200,1800 SONIA Administration Magnesium Hydroxide 30 ml 10/28/20 05:54 11/01/20 15:02 Milk Of Magnesia 30 Ml Oral.Susp PO 30 ml DAILY PRN Administration Constipation Metoprolol Succinate 50 mg 10/28/20 09:00 11/07/20 08:36 Metoprolol Succinate Er 50 Mg Tab.Er.24h PO 50 mg DAILY SONIA Administration Pioglitazone HCl 15 mg 10/28/20 09:00 11/07/20 08:37 Pioglitazone Hcl 15 Mg Tablet PO 15 mg DAILY SONIA Administration Risperidone 3 mg 11/04/20 18:00 11/07/20 18:58 Risperidone 3 Mg Tablet PO 3 mg BID@0800,1800 SONIA Administration Trazodone HCl 100 mg 10/28/20 06:30 11/06/20 01:26 Trazodone Hcl 100 Mg Tablet PO 100 mg BEDTIME PRN Administration Insomnia Allergies Allergies Allergy/AdvReac Type Severity Reaction Status Date / Time haloperidol [From Haldol] AdvReac Unknown Verified 10/28/20 06:32 Assessment & Plan Assessment & Plan (1) Schizoaffective disorder without good prognostic features and with catatonia: Status: Acute Code(s): F25.9 - Schizoaffective disorder, unspecified; F06.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 (2) HTN (hypertension): Status: Acute Code(s): I10 - Essential (primary) hypertension Assessment and Plan: Continue current regimen and care with involvement of the guardian Greater than 50% of the session was spent on counseling and/or coordination of care Reason for contiued inpatient stay Substantial Risk for: inability to function
[2020-11-08 12:19] LABS: Glucose, Whole Blood 144 mg/dL (60-115)
[2020-11-08 13:49] VITALS: BP 135/61; PULSE 88
[2020-11-08] MEDS: Milk of Magnesia 30 ML ORAL.SUSP PO (17:02)
[2020-11-08] MEDS: Insulin Lispro 100 UNIT/ML 3 ML VIAL SUBCUT ×2 (17:24→20:09)
[2020-11-08 19:15] VITALS: BP 143/64; PULSE 95; TEMP 37.1
[2020-11-08 20:09] LABS: Glucose, Whole Blood 279 mg/dL (60-115)
[2020-11-08 20:09] LABS: Glucose, Whole Blood 216 mg/dL (60-115)
[2020-11-08] MEDS: traZODone HCL 100 MG TABLET PO (22:29)
[2020-11-09] MEDS: LORazepam 1 MG TABLET 2 MG PO ×5 (03:33→21:10)
[2020-11-09] MEDS: Levothyroxine Sodium 100 MCG TABLET PO (07:06)
[2020-11-09 08:00] VITALS: BP 168/80; PULSE 100; RESP 17; TEMP 36.8; O2SAT 97
[2020-11-09 08:03] LABS: Glucose, Whole Blood 154 mg/dL (60-115)
[2020-11-09] MEDS: Insulin Glargine,Hum.rec.anlog 100 UNIT/ML 10 ML VIAL 28 UNIT SUBCUT (08:24)
[2020-11-09] MEDS: Insulin Lispro 100 UNIT/ML 3 ML VIAL SUBCUT ×4 (08:25→21:11)
[2020-11-09 08:26] VITALS: BP 168/80; PULSE 100
[2020-11-09] MEDS: Metoprolol Succinate ER 50 MG TAB.ER.24H PO (08:26)
[2020-11-09] MEDS: Divalproex Sodium ER 250 MG TAB.ER.24H 750 MG PO (08:26)
[2020-11-09] MEDS: risperiDONE 3 MG TABLET PO ×2 (08:26→21:10)
[2020-11-09 08:27] VITALS: BP 168/80; PULSE 100
[2020-11-09] MEDS: Aspirin Enteric Coated 81 MG TABLET.DR PO (08:27)
[2020-11-09] MEDS: Lithium Carbonate 300 MG TABLET PO (08:27)
[2020-11-09] MEDS: amLODIPine Besylate 10 MG TABLET PO (08:27)
--- NOTE | 2020-11-09 10:12 | HO.PSYCHPN ---
Subjective Subjective Date of Service: 11/09/20 Reason For Visit: Schizoaffective Disorder acutely psychotic Subjective Notes: Conditional Voluntary Interim History: Patient was seen in rounds today. She was discussed on rounds today. She is doing better and continues to be on one-to-one level of observation. She is more verbal and did actually get out of bed with assistance. She did have 1 episode of incontinence last night. No overt side effects or complaints. No changes were made today Medication Compliance: Yes Side effects from medications: No Attending Groups: No Review of Systems Review of Systems unable to assess to to current psychiatric condition Mental Status Exam Mental Status Exam Narrative: In today's visit she is alert, minimally verbal. She did have some eye contact and does attempt to speak with an engineering group leader. Affect is a little brighter. There are indications of response to internal stimuli. No dangerous behaviors. Diagnostics Vital Signs (24Hr): Vital Signs - 24 hr 11/08/20 13:49 11/08/20 19:15 11/09/20 08:26 Temperature 98.8 F Pulse Rate 88 95 100 Blood Pressure 135/61 143/64 H 168/80 H 11/09/20 08:27 Temperature Pulse Rate 100 Blood Pressure 168/80 H Body Mass Index 34.4 Labs Results: 10/29/20 07:51 10/29/20 07:51 Labs: Laboratory Results - last 48 hr 11/07/20 11/07/20 11/07/20 11:49 17:05 21:19 POC Glucose 174 H 180 H 167 H 11/08/20 11/08/20 11/08/20 06:54 12:11 17:08 POC Glucose 75 144 H 279 H 11/08/20 11/09/20 19:52 07:59 POC Glucose 216 H 154 H Medications Medications Current Medications Generic Name Dose Route Start Last Admin Trade Name Freq PRN Reason Stop Dose Admin Acetaminophen 650 mg 10/28/20 05:54 11/04/20 13:39 Acetaminophen 325 Mg Tablet PO 650 mg Q6H PRN Administration Headache/Pain Mild Scale (1-3) Al Hydroxide/Mg Hydroxide 30 ml 10/28/20 05:54 Magnesium Hydrox/Alum Hydrox 30 Ml Oral.Susp PO Q6H PRN Heartburn/Nausea Amlodipine Besylate 10 mg 10/28/20 09:00 11/09/20 08:27 Amlodipine Besylate 10 Mg Tablet PO 10 mg DAILY SONIA Administration Aspirin 81 mg 10/28/20 09:00 11/09/20 08:27 Aspirin Enteric Coated 81 Mg Tablet.Dr PO 81 mg DAILY SONIA Administration Divalproex Sodium 750 mg 10/31/20 09:00 11/09/20 08:26 Divalproex Sodium Er 250 Mg Tab.Er.24h PO 750 mg DAILY SONIA Administration Hydroxyzine HCl 50 mg 11/02/20 10:45 11/06/20 01:26 Hydroxyzine Hcl 25 Mg Tablet PO 50 mg BEDTIME PRN Administration Insomnia Insulin Glargine 28 unit 10/31/20 09:00 11/09/20 08:24 Insulin Glargine,Hum.Rec.Anlog 100 Unit/Ml 10 Ml Vial SUBCUT 28 unit DAILY SONIA Administration Insulin Human Lispro 0 unit 10/28/20 21:00 11/09/20 08:25 Insulin Lispro 100 Unit/Ml 3 Ml Vial SUBCUT 2 unit QIDACHS SONIA Administration Protocol Levothyroxine Sodium 100 mcg 10/28/20 09:00 11/09/20 07:06 Levothyroxine Sodium 100 Mcg Tablet PO 100 mcg DAILY@0600 SONIA Administration [place] Carbonate 300 mg 10/31/20 09:00 11/09/20 08:27 [place] Carbonate 300 Mg Tablet PO 300 mg DAILY SONIA Administration Lorazepam 2 mg 11/08/20 19:21 11/09/20 03:33 Lorazepam 1 Mg Tablet PO 2 mg TID PRN Administration anxiety Lorazepam 2 mg 11/08/20 22:09 11/09/20 09:38 Lorazepam 1 Mg Tablet PO 2 mg TID@0800,1200,1800 SONIA Administration Magnesium Hydroxide 30 ml 10/28/20 05:54 11/08/20 17:02 Milk Of Magnesia 30 Ml Oral.Susp PO 30 ml DAILY PRN Administration Constipation Metoprolol Succinate 50 mg 10/28/20 09:00 11/09/20 08:26 Metoprolol Succinate Er 50 Mg Tab.Er.24h PO 50 mg DAILY SONIA Administration Pioglitazone HCl 15 mg 10/28/20 09:00 11/09/20 08:27 Pioglitazone Hcl 15 Mg Tablet PO 15 mg DAILY SONIA Administration Risperidone 3 mg 11/04/20 18:00 11/09/20 08:26 Risperidone 3 Mg Tablet PO 3 mg BID@0800,1800 SONIA Administration Trazodone HCl 100 mg 10/28/20 06:30 11/08/20 22:29 Trazodone Hcl 100 Mg Tablet PO 100 mg BEDTIME PRN Administration Insomnia Allergies Allergies Allergy/AdvReac Type Severity Reaction Status Date / Time haloperidol [From Haldol] AdvReac Unknown Verified 10/28/20 06:32 Assessment & Plan Assessment & Plan (1) Schizoaffective disorder without good prognostic features and with catatonia: Status: Acute Code(s): F25.9 - Schizoaffective disorder, unspecified; F06.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 (2) HTN (hypertension): Status: Acute Code(s): I10 - Essential (primary) hypertension Assessment and Plan: Continue current regimen and care with involvement of the guardian Greater than 50% of the session was spent on counseling and/or coordination of care Reason for contiued inpatient stay Substantial Risk for: inability to function
[2020-11-09 11:57] LABS: Glucose, Whole Blood 203 mg/dL (60-115)
[2020-11-09 14:00] VITALS: BP 158/73; PULSE 100; RESP 18; TEMP 36.7; O2SAT 96
[2020-11-09 16:30] VITALS: BP 140/65; PULSE 86; TEMP 36.9
[2020-11-09 18:37] LABS: Glucose, Whole Blood 215 mg/dL (60-115)
[2020-11-09 20:54] LABS: Glucose, Whole Blood 202 mg/dL (60-115)
[2020-11-09] MEDS: traZODone HCL 100 MG TABLET PO (21:09)
[2020-11-10 06:27] LABS: Glucose, Whole Blood 171 mg/dL (60-115)
[2020-11-10 09:00] VITALS: BP 107/53; PULSE 71; TEMP 37; O2SAT 98
[2020-11-10] MEDS: Insulin Glargine,Hum.rec.anlog 100 UNIT/ML 10 ML VIAL 28 UNIT SUBCUT (09:10)
[2020-11-10] MEDS: Insulin Lispro 100 UNIT/ML 3 ML VIAL SUBCUT ×3 (09:11→20:19)
[2020-11-10 10:04] LABS: Glucose, Whole Blood 158 mg/dL (60-115)
--- NOTE | 2020-11-10 10:59 | P.PNPSI_ITS ---
Subjective Subjective Date of Service: 11/10/20 Reason For Visit: Schizoaffective Disorder acutely psychotic Subjective Notes: Conditional Voluntary Guardianship: Yes Interim History: pt has been withdrawn tremulous appears flat dysphoric but denies alert Medication Compliance: Yes Side effects from medications: Yes (tremor) Mental Status Exam Mental Status Exam Patient Appearance: Fatigued and Unkempt Patient Orientation: Person Level of Consciousness: Drowsy and Sedated Patient Behavior: Guarded, Suspicious, Fearful and Isolative Mood Description: Depressed, Flat and Apprehensive Affect Description: Flat and Apprehensive Ability to Follow Directions: Poor Abnormal Motor Activity Signs and Symptoms: Psychomotor Retardation Judgement: Poor Diagnostics Vital Signs (24Hr): Vital Signs - 24 hr 11/09/20 14:00 11/09/20 16:30 Temperature 98.1 F 98.4 F Pulse Rate 100 86 Respiratory Rate 18 Blood Pressure 158/73 H 140/65 H Pulse Oximetry 96 Body Mass Index 34.4 Labs Results: 10/29/20 07:51 10/29/20 07:51 Labs: Laboratory Results - last 48 hr 11/08/20 11/08/20 11/08/20 12:11 17:08 19:52 POC Glucose 144 H 279 H 216 H 11/09/20 11/09/20 11/09/20 07:59 11:48 17:03 POC Glucose 154 H 203 H 215 H 11/09/20 11/10/20 11/10/20 20:49 06:19 08:50 POC Glucose 202 H 171 H 158 H Medications Medications Current Medications Generic Name Dose Route Start Last Admin Trade Name Freq PRN Reason Stop Dose Admin Acetaminophen 650 mg 10/28/20 05:54 11/04/20 13:39 Acetaminophen 325 Mg Tablet PO 650 mg Q6H PRN Administration Headache/Pain Mild Scale (1-3) Al Hydroxide/Mg Hydroxide 30 ml 10/28/20 05:54 Magnesium Hydrox/Alum Hydrox 30 Ml Oral.Susp PO Q6H PRN Heartburn/Nausea Amlodipine Besylate 10 mg 10/28/20 09:00 11/09/20 08:27 Amlodipine Besylate 10 Mg Tablet PO 10 mg DAILY SONIA Administration Aspirin 81 mg 10/28/20 09:00 11/09/20 08:27 Aspirin Enteric Coated 81 Mg Tablet.Dr PO 81 mg DAILY SONIA Administration Divalproex Sodium 750 mg 10/31/20 09:00 11/09/20 08:26 Divalproex Sodium Er 250 Mg Tab.Er.24h PO 750 mg DAILY SONIA Administration Hydroxyzine HCl 50 mg 11/02/20 10:45 11/06/20 01:26 Hydroxyzine Hcl 25 Mg Tablet PO 50 mg BEDTIME PRN Administration Insomnia Insulin Glargine 28 unit 10/31/20 09:00 11/10/20 09:10 Insulin Glargine,Hum.Rec.Anlog 100 Unit/Ml 10 Ml Vial SUBCUT 28 unit DAILY SONIA Administration Insulin Human Lispro 0 unit 10/28/20 21:00 11/10/20 09:11 Insulin Lispro 100 Unit/Ml 3 Ml Vial SUBCUT 2 unit QIDACHS SONIA Administration Protocol Levothyroxine Sodium 100 mcg 10/28/20 09:00 11/09/20 07:06 Levothyroxine Sodium 100 Mcg Tablet PO 100 mcg DAILY@0600 SONIA Administration [place] Carbonate 300 mg 10/31/20 09:00 11/09/20 08:27 [place] Carbonate 300 Mg Tablet PO 300 mg DAILY SONIA Administration Lorazepam 2 mg 11/08/20 19:21 11/09/20 16:25 Lorazepam 1 Mg Tablet PO 2 mg TID PRN Administration anxiety Lorazepam 2 mg 11/08/20 22:09 11/09/20 21:10 Lorazepam 1 Mg Tablet PO 2 mg TID@0800,1200,1800 SONIA Administration Magnesium Hydroxide 30 ml 10/28/20 05:54 11/08/20 17:02 Milk Of Magnesia 30 Ml Oral.Susp PO 30 ml DAILY PRN Administration Constipation Metoprolol Succinate 50 mg 10/28/20 09:00 11/09/20 08:26 Metoprolol Succinate Er 50 Mg Tab.Er.24h PO 50 mg DAILY SONIA Administration Pioglitazone HCl 15 mg 10/28/20 09:00 11/09/20 08:27 Pioglitazone Hcl 15 Mg Tablet PO 15 mg DAILY SONIA Administration Risperidone 3 mg 11/04/20 18:00 11/09/20 21:10 Risperidone 3 Mg Tablet PO 3 mg BID@0800,1800 SONIA Administration Trazodone HCl 100 mg 10/28/20 06:30 11/09/20 21:09 Trazodone Hcl 100 Mg Tablet PO 100 mg BEDTIME PRN Administration Insomnia Allergies Allergies Allergy/AdvReac Type Severity Reaction Status Date / Time haloperidol [From Haldol] AdvReac Unknown Verified 10/28/20 06:32 Assessment & Plan Assessment & Plan (1) Schizoaffective disorder without good prognostic features and with catatonia: Status: Acute Code(s): F25.9 - Schizoaffective disorder, unspecified; F06.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
[2020-11-10 16:58] VITALS: BP 161/69; PULSE 97; RESP 18; TEMP 37.2; O2SAT 95
[2020-11-10] MEDS: risperiDONE 3 MG TABLET PO (17:22)
[2020-11-10 17:48] LABS: Glucose, Whole Blood 262 mg/dL (60-115)
[2020-11-10] MEDS: LORazepam 1 MG TABLET 2 MG PO (17:52)
[2020-11-10 22:50] LABS: Glucose, Whole Blood 248 mg/dL (60-115)
[2020-11-11 06:37] LABS: Glucose, Whole Blood 166 mg/dL (60-115)
[2020-11-11] MEDS: Levothyroxine Sodium 100 MCG TABLET PO (06:42)
[2020-11-11] MEDS: Divalproex Sodium ER 250 MG TAB.ER.24H 750 MG PO (08:17)
[2020-11-11 08:18] VITALS: BP 143/66; PULSE 94
[2020-11-11] MEDS: Aspirin Enteric Coated 81 MG TABLET.DR PO (08:18)
[2020-11-11] MEDS: Metoprolol Succinate ER 50 MG TAB.ER.24H PO (08:18)
[2020-11-11] MEDS: amLODIPine Besylate 10 MG TABLET PO (08:18)
[2020-11-11] MEDS: risperiDONE 3 MG TABLET PO ×2 (08:18→17:44)
[2020-11-11] MEDS: Lithium Carbonate 300 MG TABLET PO (08:18)
[2020-11-11] MEDS: Insulin Glargine,Hum.rec.anlog 100 UNIT/ML 10 ML VIAL 28 UNIT SUBCUT (08:21)
[2020-11-11] MEDS: LORazepam 1 MG TABLET 2 MG PO ×3 (08:21→17:44)
[2020-11-11] MEDS: Insulin Lispro 100 UNIT/ML 3 ML VIAL SUBCUT ×2 (08:22→12:35)
[2020-11-11 12:18] LABS: Glucose, Whole Blood 180 mg/dL (60-115)
[2020-11-11 13:00] VITALS: BP 160/73; PULSE 100
[2020-11-11 18:00] VITALS: BP 123/83; PULSE 88; RESP 16; TEMP 36.8; O2SAT 98
--- NOTE | 2020-11-11 20:57 | P.PNPSI_ITS ---
Subjective Subjective Date of Service: 11/11/20 Reason For Visit: Schizoaffective Disorder acutely psychotic Subjective Notes: Conditional Voluntary Guardianship: Yes Interim History: pt withdrawn isolative dysphoric pos ervin unstable gait t remulous Medication Compliance: Yes Attending Groups: No Mental Status Exam Mental Status Exam Narrative: somewhat hahn affect unstaedy gait Patient Appearance: Fatigued and Disheveled Level of Consciousness: Lethargic Patient Behavior: Guarded Mood Description: Constricted, Anxious and Blunted Affect Description: Anxious and Flat Diagnostics Vital Signs (24Hr): Vital Signs - 24 hr 11/11/20 08:18 11/11/20 13:00 11/11/20 18:00 Temperature 98.3 F Pulse Rate 94 100 88 Respiratory Rate 16 Blood Pressure 143/66 H 160/73 H 123/83 Pulse Oximetry 98 Body Mass Index 34.4 Labs Results: 10/29/20 07:51 10/29/20 07:51 Labs: Laboratory Results - last 48 hr 11/10/20 11/10/20 11/10/20 06:19 08:50 17:11 POC Glucose 171 H 158 H 262 H 11/10/20 11/11/20 11/11/20 20:14 06:25 12:13 POC Glucose 248 H 166 H 180 H Medications Medications Current Medications Generic Name Dose Route Start Last Admin Trade Name Freq PRN Reason Stop Dose Admin Acetaminophen 650 mg 10/28/20 05:54 11/04/20 13:39 Acetaminophen 325 Mg Tablet PO 650 mg Q6H PRN Administration Headache/Pain Mild Scale (1-3) Al Hydroxide/Mg Hydroxide 30 ml 10/28/20 05:54 Magnesium Hydrox/Alum Hydrox 30 Ml Oral.Susp PO Q6H PRN Heartburn/Nausea Amlodipine Besylate 10 mg 10/28/20 09:00 11/11/20 08:18 Amlodipine Besylate 10 Mg Tablet PO 10 mg DAILY SONIA Administration Aspirin 81 mg 10/28/20 09:00 11/11/20 08:18 Aspirin Enteric Coated 81 Mg Tablet.Dr PO 81 mg DAILY SONIA Administration Divalproex Sodium 750 mg 10/31/20 09:00 11/11/20 08:17 Divalproex Sodium Er 250 Mg Tab.Er.24h PO 750 mg DAILY SONIA Administration Hydroxyzine HCl 50 mg 11/02/20 10:45 11/06/20 01:26 Hydroxyzine Hcl 25 Mg Tablet PO 50 mg BEDTIME PRN Administration Insomnia Insulin Glargine 28 unit 10/31/20 09:00 11/11/20 08:21 Insulin Glargine,Hum.Rec.Anlog 100 Unit/Ml 10 Ml Vial SUBCUT 28 unit DAILY SONIA Administration Insulin Human Lispro 0 unit 10/28/20 21:00 11/11/20 17:15 Insulin Lispro 100 Unit/Ml 3 Ml Vial SUBCUT Not Given QIDACHS [facility] Protocol Levothyroxine Sodium 100 mcg 10/28/20 09:00 11/11/20 06:42 Levothyroxine Sodium 100 Mcg Tablet PO 100 mcg DAILY@0600 SONIA Administration [place] Carbonate 300 mg 10/31/20 09:00 11/11/20 08:18 [place] Carbonate 300 Mg Tablet PO 300 mg DAILY SONIA Administration Lorazepam 2 mg 11/08/20 19:21 11/09/20 16:25 Lorazepam 1 Mg Tablet PO 2 mg TID PRN Administration anxiety Lorazepam 1 mg 11/12/20 08:00 Lorazepam 1 Mg Tablet PO TID@0800,1200,1800 [facility] Magnesium Hydroxide 30 ml 10/28/20 05:54 11/08/20 17:02 Milk Of Magnesia 30 Ml Oral.Susp PO 30 ml DAILY PRN Administration Constipation Metoprolol Succinate 50 mg 10/28/20 09:00 11/11/20 08:18 Metoprolol Succinate Er 50 Mg Tab.Er.24h PO 50 mg DAILY SONIA Administration Pioglitazone HCl 15 mg 10/28/20 09:00 11/11/20 08:18 Pioglitazone Hcl 15 Mg Tablet PO 15 mg DAILY SONIA Administration Risperidone 3 mg 11/04/20 18:00 11/11/20 17:44 Risperidone 3 Mg Tablet PO 3 mg BID@0800,1800 [facility] Administration Trazodone HCl 100 mg 10/28/20 06:30 11/09/20 21:09 Trazodone Hcl 100 Mg Tablet PO 100 mg BEDTIME PRN Administration Insomnia Allergies Allergies Allergy/AdvReac Type Severity Reaction Status Date / Time haloperidol [From Haldol] AdvReac Unknown Verified 10/28/20 06:32 Assessment & Plan Assessment & Plan (1) Schizoaffective disorder without good prognostic features and with catatonia: Status: Acute Code(s): F25.9 - Schizoaffective disorder, unspecified; F06.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 (2) HTN (hypertension): Status: Acute Code(s): I10 - Essential (primary) hypertension Assessment and Plan: Continue current regimen and care with involvement of the guardian unclear baseline lower ativan ? contributing to lethargy unstable gait pos aziza stafford alt pending will try augmentation with sertraline change dep to hs Greater than 50% of the session was spent on counseling and/or coordination of care Reason for contiued inpatient stay Substantial Risk for: inability to function and rapid decompensation
[2020-11-11 20:59] LABS: Glucose, Whole Blood 145 mg/dL (60-115)
[2020-11-11 20:59] LABS: Glucose, Whole Blood 121 mg/dL (60-115)
[2020-11-12] MEDS: Levothyroxine Sodium 100 MCG TABLET PO (06:21)
[2020-11-12 06:30] VITALS: BP 126/58; PULSE 80; RESP 18; TEMP 35.9; O2SAT 97
[2020-11-12 06:42] LABS: Glucose, Whole Blood 119 mg/dL (60-115)
[2020-11-12 07:00] VITALS: BMI 33.9
[2020-11-12 08:46] VITALS: BP 126/58; PULSE 80; O2SAT 97
[2020-11-12 09:39] VITALS: BP 155/73; PULSE 87
[2020-11-12] MEDS: amLODIPine Besylate 10 MG TABLET PO (09:39)
[2020-11-12] MEDS: Aspirin Enteric Coated 81 MG TABLET.DR PO (09:39)
[2020-11-12] MEDS: Metoprolol Succinate ER 50 MG TAB.ER.24H PO (09:39)
[2020-11-12] MEDS: LORazepam 1 MG TABLET PO ×3 (09:40→17:43)
[2020-11-12] MEDS: Lithium Carbonate 300 MG TABLET PO (09:43)
[2020-11-12] MEDS: risperiDONE 3 MG TABLET PO ×2 (09:43→17:44)
[2020-11-12] MEDS: Sertraline HCL 25 MG TABLET PO (09:43)
[2020-11-12] MEDS: Insulin Glargine,Hum.rec.anlog 100 UNIT/ML 10 ML VIAL 28 UNIT SUBCUT (09:49)
--- NOTE | 2020-11-12 09:59 | HO.PSYCHPN ---
Subjective Subjective Date of Service: 11/12/20 Reason For Visit: Schizoaffective Disorder acutely psychotic Subjective Notes: Conditional Voluntary Guardianship: Yes Interim History: pt more verbal still withdrawn flat limited fx depressed pos intermittant ervin Medication Compliance: Yes Mental Status Exam Mental Status Exam Narrative: somewhat hahn affect unstaedy gait Patient Appearance: Fatigued and Disheveled Level of Consciousness: Lethargic Patient Behavior: Guarded and Avoidant Mood Description: Constricted, Anxious, Blunted and Sad Affect Description: Withdrawn, Anxious, Blunted, Flat and Sad Speech Pattern: Impoverished Thought Content: negative for Suicidal Ideation and negative for Homicidal Ideation Depressive Symptoms: Increased Anxiety, Loss of Int. in Activity, Increased Fatigue, Loss of Energy and Difficulty Concentrating Abnormal Motor Activity Signs and Symptoms: Psychomotor Retardation Diagnostics Vital Signs (24Hr): Vital Signs - 24 hr 11/11/20 13:00 11/11/20 18:00 11/12/20 06:30 Temperature 98.3 F 96.7 F L Pulse Rate 100 88 80 Respiratory Rate 16 18 Blood Pressure 160/73 H 123/83 126/58 L Pulse Oximetry 98 97 11/12/20 08:46 11/12/20 09:39 Temperature Pulse Rate 80 87 Respiratory Rate Blood Pressure 126/58 L 155/73 H Pulse Oximetry 97 Body Mass Index 34.4 Labs Results: 10/29/20 07:51 10/29/20 07:51 Labs: Laboratory Results - last 48 hr 11/10/20 11/10/20 11/10/20 08:50 17:11 20:14 POC Glucose 158 H 262 H 248 H 11/11/20 11/11/20 11/11/20 06:25 12:13 16:53 POC Glucose 166 H 180 H 145 H 11/11/20 11/12/20 20:53 06:34 POC Glucose 121 H 119 H Medications Medications Current Medications Generic Name Dose Route Start Last Admin Trade Name Freq PRN Reason Stop Dose Admin Acetaminophen 650 mg 10/28/20 05:54 11/04/20 13:39 Acetaminophen 325 Mg Tablet PO 650 mg Q6H PRN Administration Headache/Pain Mild Scale (1-3) Al Hydroxide/Mg Hydroxide 30 ml 10/28/20 05:54 Magnesium Hydrox/Alum Hydrox 30 Ml Oral.Susp PO Q6H PRN Heartburn/Nausea Amlodipine Besylate 10 mg 10/28/20 09:00 11/12/20 09:39 Amlodipine Besylate 10 Mg Tablet PO 10 mg DAILY SONIA Administration Aspirin 81 mg 10/28/20 09:00 11/12/20 09:39 Aspirin Enteric Coated 81 Mg Tablet.Dr PO 81 mg DAILY SONIA Administration Divalproex Sodium 750 mg 11/12/20 18:00 Divalproex Sodium Er 250 Mg Tab.Er.24h PO DAILY@1800 [facility] Hydroxyzine HCl 50 mg 11/02/20 10:45 11/06/20 01:26 Hydroxyzine Hcl 25 Mg Tablet PO 50 mg BEDTIME PRN Administration Insomnia Insulin Glargine 28 unit 10/31/20 09:00 11/12/20 09:49 Insulin Glargine,Hum.Rec.Anlog 100 Unit/Ml 10 Ml Vial SUBCUT 28 unit DAILY SONIA Administration Insulin Human Lispro 0 unit 10/28/20 21:00 11/12/20 09:49 Insulin Lispro 100 Unit/Ml 3 Ml Vial SUBCUT Not Given QIDACHS [facility] Protocol Levothyroxine Sodium 100 mcg 10/28/20 09:00 11/12/20 06:21 Levothyroxine Sodium 100 Mcg Tablet PO 100 mcg DAILY@0600 [facility] Administration [place] Carbonate 300 mg 10/31/20 09:00 11/12/20 09:43 [place] Carbonate 300 Mg Tablet PO 300 mg DAILY SONIA Administration Lorazepam 2 mg 11/08/20 19:21 11/09/20 16:25 Lorazepam 1 Mg Tablet PO 2 mg TID PRN Administration anxiety Lorazepam 1 mg 11/12/20 08:00 11/12/20 09:40 Lorazepam 1 Mg Tablet PO 1 mg TID@0800,1200,1800 [facility] Administration Magnesium Hydroxide 30 ml 10/28/20 05:54 11/08/20 17:02 Milk Of Magnesia 30 Ml Oral.Susp PO 30 ml DAILY PRN Administration Constipation Metoprolol Succinate 50 mg 10/28/20 09:00 11/12/20 09:39 Metoprolol Succinate Er 50 Mg Tab.Er.24h PO 50 mg DAILY SONIA Administration Pioglitazone HCl 15 mg 10/28/20 09:00 11/12/20 09:39 Pioglitazone Hcl 15 Mg Tablet PO 15 mg DAILY SONIA Administration Risperidone 3 mg 11/04/20 18:00 11/12/20 09:43 Risperidone 3 Mg Tablet PO 3 mg BID@0800,1800 SONIA Administration Sertraline HCl 25 mg 11/12/20 09:00 11/12/20 09:43 Sertraline Hcl 25 Mg Tablet PO 25 mg DAILY SONIA Administration Trazodone HCl 100 mg 10/28/20 06:30 11/09/20 21:09 Trazodone Hcl 100 Mg Tablet PO 100 mg BEDTIME PRN Administration Insomnia Allergies Allergies Allergy/AdvReac Type Severity Reaction Status Date / Time haloperidol [From Haldol] AdvReac Unknown Verified 10/28/20 06:32 Assessment & Plan Assessment & Plan (1) Schizoaffective disorder without good prognostic features and with catatonia: Status: Acute Code(s): F25.9 - Schizoaffective disorder, unspecified; F06.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 (2) HTN (hypertension): Status: Acute Code(s): I10 - Essential (primary) hypertension Assessment and Plan: Continue current regimen and care with involvement of the guardian unclear baseline had visitor described better nl fx tsh inc inc synthroid inc sertraline ? cytomel for augmentation remains on 1.1 for safety unsteady gait Greater than 50% of the session was spent on counseling and/or coordination of care Reason for contiued inpatient stay Substantial Risk for: inability to function, rapid decompensation and med/psych decompensation
[2020-11-12 10:23] LABS: Lithium 0.26 mmol/L (0.60-1.20)
[2020-11-12 10:30] LABS: TSH reflex Free T4 5.88 uIU/mL (0.32-4.0)
[2020-11-12 10:35] LABS: Valproate 24.5 mcg/mL (50.0-100.0)
[2020-11-12 12:01] LABS: Glucose, Whole Blood 245 mg/dL (60-115)
[2020-11-12] MEDS: Insulin Lispro 100 UNIT/ML 3 ML VIAL SUBCUT ×3 (12:17→20:56)
[2020-11-12 17:15] VITALS: BP 143/63; PULSE 89; TEMP 36.6
[2020-11-12 17:23] LABS: Glucose, Whole Blood 216 mg/dL (60-115)
[2020-11-12 21:26] LABS: Glucose, Whole Blood 212 mg/dL (60-115)
[2020-11-13] MEDS: Levothyroxine Sodium 100 MCG TABLET 125 MCG PO (06:30)
[2020-11-13 06:50] VITALS: BP 114/69; PULSE 75; RESP 16; TEMP 36.4; O2SAT 97
[2020-11-13 06:50] LABS: Glucose, Whole Blood 164 mg/dL (60-115)
[2020-11-13] MEDS: risperiDONE 3 MG TABLET PO ×2 (08:43→18:43)
[2020-11-13] MEDS: Lithium Carbonate 300 MG TABLET PO (08:43)
[2020-11-13 08:44] VITALS: BP 144/70; PULSE 72
[2020-11-13] MEDS: Aspirin Enteric Coated 81 MG TABLET.DR PO (08:44)
[2020-11-13] MEDS: amLODIPine Besylate 10 MG TABLET PO (08:44)
[2020-11-13] MEDS: Metoprolol Succinate ER 50 MG TAB.ER.24H PO (08:44)
[2020-11-13] MEDS: Sertraline HCL 50 MG TABLET PO (08:44)
[2020-11-13] MEDS: Insulin Lispro 100 UNIT/ML 3 ML VIAL SUBCUT ×3 (08:59→20:41)
[2020-11-13] MEDS: LORazepam 1 MG TABLET PO ×3 (09:01→18:06)
[2020-11-13] MEDS: Insulin Glargine,Hum.rec.anlog 100 UNIT/ML 10 ML VIAL 28 UNIT SUBCUT (10:21)
[2020-11-13 12:34] LABS: Glucose, Whole Blood 221 mg/dL (60-115)
[2020-11-13 17:05] LABS: Glucose, Whole Blood 119 mg/dL (60-115)
[2020-11-13 18:00] VITALS: BP 145/71; PULSE 73; RESP 18; TEMP 36.4; O2SAT 96
[2020-11-13] MEDS: Divalproex Sodium ER 250 MG TAB.ER.24H 750 MG PO (18:43)
--- NOTE | 2020-11-13 22:07 | HO.PSYCHPN ---
Subjective Subjective Date of Service: 11/13/20 Reason For Visit: Schizoaffective Disorder acutely psychotic Subjective Notes: Conditional Voluntary Guardianship: Yes Interim History: PT WITH HAHN AFFECT SPEAKING MORE SPONTANEOUSLY ON 1.1 SECONDARY TO GAIT DIFFICULTY Mental Status Exam Mental Status Exam Narrative: somewhat hahn affect unstaedy gait improving mood Patient Orientation: Person and Situation Level of Consciousness: Appropriate Patient Behavior: Guarded, Cooperative and Avoidant Mood Description: Calm, Withdrawn, Constricted, Anxious and Blunted Affect Description: Withdrawn, Anxious, Blunted, Flat and Sad Speech Pattern: Impoverished Thought Content: negative for Suicidal Ideation and negative for Homicidal Ideation Depressive Symptoms: Increased Anxiety, Loss of Int. in Activity, Increased Fatigue, Loss of Energy and Difficulty Concentrating Abnormal Motor Activity Signs and Symptoms: Psychomotor Retardation Diagnostics Vital Signs (24Hr): Vital Signs - 24 hr 11/13/20 06:50 11/13/20 08:44 Temperature 97.5 F Pulse Rate 75 72 Respiratory Rate 16 Blood Pressure 114/69 144/70 H Pulse Oximetry 97 Body Mass Index 33.9 Labs Results: 10/29/20 07:51 10/29/20 07:51 Labs: Laboratory Results - last 48 hr 11/12/20 11/12/20 11/12/20 06:34 08:48 08:48 POC Glucose 119 H TSH 5.88 H Free T4 1.10 Valproic Acid 24.5 L [place] 0.26 L 11/12/20 11/12/20 11/12/20 11:57 17:10 20:50 POC Glucose 245 H 216 H 212 H TSH Free T4 Valproic Acid [place] 11/13/20 11/13/20 11/13/20 06:32 12:29 16:58 POC Glucose 164 H 221 H 119 H TSH Free T4 Valproic Acid [place] Medications Medications Current Medications Generic Name Dose Route Start Last Admin Trade Name Freq PRN Reason Stop Dose Admin Acetaminophen 650 mg 10/28/20 05:54 11/04/20 13:39 Acetaminophen 325 Mg Tablet PO 650 mg Q6H PRN Administration Headache/Pain Mild Scale (1-3) Al Hydroxide/Mg Hydroxide 30 ml 10/28/20 05:54 Magnesium Hydrox/Alum Hydrox 30 Ml Oral.Susp PO Q6H PRN Heartburn/Nausea Amlodipine Besylate 10 mg 10/28/20 09:00 11/13/20 08:44 Amlodipine Besylate 10 Mg Tablet PO 10 mg DAILY SONIA Administration Aspirin 81 mg 10/28/20 09:00 11/13/20 08:44 Aspirin Enteric Coated 81 Mg Tablet.Dr PO 81 mg DAILY SONIA Administration Divalproex Sodium 750 mg 11/12/20 18:00 11/13/20 18:43 Divalproex Sodium Er 250 Mg Tab.Er.24h PO 750 mg DAILY@1800 SONIA Administration Hydroxyzine HCl 50 mg 11/02/20 10:45 11/06/20 01:26 Hydroxyzine Hcl 25 Mg Tablet PO 50 mg BEDTIME PRN Administration Insomnia Insulin Glargine 28 unit 10/31/20 09:00 11/13/20 10:21 Insulin Glargine,Hum.Rec.Anlog 100 Unit/Ml 10 Ml Vial SUBCUT 28 unit DAILY SONIA Administration Insulin Human Lispro 0 unit 10/28/20 21:00 11/13/20 20:41 Insulin Lispro 100 Unit/Ml 3 Ml Vial SUBCUT 6 unit QIDACHS SONIA Administration Protocol Levothyroxine Sodium 125 mcg 11/13/20 06:00 11/13/20 06:30 Levothyroxine Sodium 100 Mcg Tablet PO 125 mcg DAILY@0600 SONIA Administration [place] Carbonate 300 mg 10/31/20 09:00 11/13/20 08:43 [place] Carbonate 300 Mg Tablet PO 300 mg DAILY SONIA Administration Lorazepam 1 mg 11/12/20 08:00 11/13/20 18:06 Lorazepam 1 Mg Tablet PO 1 mg TID@0800,1200,1800 SONIA Administration Lorazepam 1 mg 11/12/20 21:14 Lorazepam 1 Mg Tablet PO TID PRN anxiety Magnesium Hydroxide 30 ml 10/28/20 05:54 11/08/20 17:02 Milk Of Magnesia 30 Ml Oral.Susp PO 30 ml DAILY PRN Administration Constipation Metoprolol Succinate 50 mg 10/28/20 09:00 11/13/20 08:44 Metoprolol Succinate Er 50 Mg Tab.Er.24h PO 50 mg DAILY SONIA Administration Pioglitazone HCl 15 mg 10/28/20 09:00 11/13/20 10:21 Pioglitazone Hcl 15 Mg Tablet PO 15 mg DAILY SONIA Administration Risperidone 3 mg 11/04/20 18:00 11/13/20 18:43 Risperidone 3 Mg Tablet PO 3 mg BID@0800,1800 SONIA Administration Sertraline HCl 50 mg 11/13/20 09:00 11/13/20 08:44 Sertraline Hcl 50 Mg Tablet PO 50 mg DAILY SONIA Administration Trazodone HCl 100 mg 10/28/20 06:30 11/09/20 21:09 Trazodone Hcl 100 Mg Tablet PO 100 mg BEDTIME PRN Administration Insomnia Allergies Allergies Allergy/AdvReac Type Severity Reaction Status Date / Time haloperidol [From Haldol] AdvReac Unknown Verified 10/28/20 06:32 Assessment & Plan Assessment & Plan (1) Schizoaffective disorder without good prognostic features and with catatonia: Status: Acute Code(s): F25.9 - Schizoaffective disorder, unspecified; F06.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 cytomel for augmentation remains on 1.1 for safety unsteady gait lower risperadol may improve gait disturbance Greater than 50% of the session was spent on counseling and/or coordination of care Reason for contiued inpatient stay Substantial Risk for: inability to function, rapid decompensation and med/psych decompensation
[2020-11-13 22:56] LABS: Glucose, Whole Blood 264 mg/dL (60-115)
[2020-11-14] MEDS: hydrOXYzine HCL 25 MG TABLET 50 MG PO (03:02)
[2020-11-14] MEDS: traZODone HCL 100 MG TABLET PO (03:02)
[2020-11-14 06:32] LABS: Glucose, Whole Blood 113 mg/dL (60-115)
[2020-11-14 06:54] VITALS: BP 154/78; PULSE 76; RESP 18; TEMP 36.4; O2SAT 95
[2020-11-14] MEDS: Aspirin Enteric Coated 81 MG TABLET.DR PO (08:24)
[2020-11-14] MEDS: Sertraline HCL 50 MG TABLET PO (08:24)
[2020-11-14 08:25] VITALS: BP 128/66; PULSE 72
[2020-11-14] MEDS: Metoprolol Succinate ER 50 MG TAB.ER.24H PO (08:25)
[2020-11-14 08:28] VITALS: BP 128/66; PULSE 72
[2020-11-14] MEDS: Lithium Carbonate 300 MG TABLET PO (08:28)
[2020-11-14] MEDS: amLODIPine Besylate 10 MG TABLET PO (08:28)
[2020-11-14] MEDS: risperiDONE 3 MG TABLET PO ×2 (08:28→20:15)
[2020-11-14] MEDS: Insulin Glargine,Hum.rec.anlog 100 UNIT/ML 10 ML VIAL 28 UNIT SUBCUT (08:29)
[2020-11-14] MEDS: Levothyroxine Sodium 125 MCG TABLET PO (08:31)
[2020-11-14 13:19] LABS: Glucose, Whole Blood 223 mg/dL (60-115)
[2020-11-14] MEDS: Insulin Lispro 100 UNIT/ML 3 ML VIAL SUBCUT (13:27)
[2020-11-14] MEDS: LORazepam 1 MG TABLET PO ×2 (13:27→20:15)
[2020-11-14 16:49] LABS: Glucose, Whole Blood 125 mg/dL (60-115)
[2020-11-14 18:00] VITALS: BP 130/59; PULSE 84; RESP 16; TEMP 36.6; O2SAT 97
[2020-11-14] MEDS: Divalproex Sodium ER 250 MG TAB.ER.24H 750 MG PO (20:15)
--- NOTE | 2020-11-14 20:36 | P.PNPSI_ITS ---
Subjective Subjective Date of Service: 11/14/20 Reason For Visit: Schizoaffective Disorder acutely psychotic Subjective Notes: Conditional Voluntary Healthcare Proxy: No Guardianship: Yes Medical Problems Affecting Mental Status: No Interim History: Denies symptoms but this is inconsistent with lack of functioning. Incontinent per team with seemingly minimal awareness. paranoia, depressed presentation. Medication Compliance: Yes Side effects from medications: No Attending Groups: No Review of Systems Psychiatric: Reports abnormal sleep pattern and Reports depression Mental Status Exam Mental Status Exam Patient Appearance: Fatigued and Disheveled Patient Orientation: Person Level of Consciousness: Awake Patient Behavior: Dependent Mood Description: Depressed Affect Description: Flat Patient Cognition Impaired: Yes Ability to Follow Directions: Poor Speech Pattern: Spontaneous Speech and Long Pauses Memory Description: Episodic Impaired Delusions: Paranoid Ideation Thought Process: Distracted and Rumination Thought Content: positive for Perseveration Depressive Symptoms: Difficulty Concentrating Judgement: Poor Diagnostics Vital Signs (24Hr): Vital Signs - 24 hr 11/14/20 06:54 11/14/20 08:25 11/14/20 08:28 Temperature 97.6 F Pulse Rate 76 72 72 Respiratory Rate 18 Blood Pressure 154/78 H 128/66 128/66 Pulse Oximetry 95 Body Mass Index 33.9 Labs Results: 10/29/20 07:51 10/29/20 07:51 Labs: Laboratory Results - last 48 hr 11/12/20 11/13/20 11/13/20 20:50 06:32 12:29 POC Glucose 212 H 164 H 221 H 11/13/20 11/13/20 11/14/20 16:58 20:38 06:22 POC Glucose 119 H 264 H 113 11/14/20 11/14/20 13:15 16:43 POC Glucose 223 H 125 H Medications Medications Current Medications Generic Name Dose Route Start Last Admin Trade Name Freq PRN Reason Stop Dose Admin Acetaminophen 650 mg 10/28/20 05:54 11/04/20 13:39 Acetaminophen 325 Mg Tablet PO 650 mg Q6H PRN Administration Headache/Pain Mild Scale (1-3) Al Hydroxide/Mg Hydroxide 30 ml 10/28/20 05:54 Magnesium Hydrox/Alum Hydrox 30 Ml Oral.Susp PO Q6H PRN Heartburn/Nausea Amlodipine Besylate 10 mg 10/28/20 09:00 11/14/20 08:28 Amlodipine Besylate 10 Mg Tablet PO 10 mg DAILY SONIA Administration Aspirin 81 mg 10/28/20 09:00 11/14/20 08:24 Aspirin Enteric Coated 81 Mg Tablet.Dr PO 81 mg DAILY SONIA Administration Divalproex Sodium 750 mg 11/12/20 18:00 11/14/20 20:15 Divalproex Sodium Er 250 Mg Tab.Er.24h PO 750 mg DAILY@1800 SONIA Administration Hydroxyzine HCl 50 mg 11/02/20 10:45 11/14/20 03:02 Hydroxyzine Hcl 25 Mg Tablet PO 50 mg BEDTIME PRN Administration Insomnia Insulin Glargine 28 unit 10/31/20 09:00 11/14/20 08:29 Insulin Glargine,Hum.Rec.Anlog 100 Unit/Ml 10 Ml Vial SUBCUT 28 unit DAILY SONIA Administration Insulin Human Lispro 0 unit 10/28/20 21:00 11/14/20 13:27 Insulin Lispro 100 Unit/Ml 3 Ml Vial SUBCUT 4 unit QIDACHS SONIA Administration Protocol Levothyroxine Sodium 125 mcg 11/14/20 06:45 11/14/20 08:31 Levothyroxine Sodium 125 Mcg Tablet PO 125 mcg DAILY@0600 SONIA Administration [place] Carbonate 300 mg 10/31/20 09:00 11/14/20 08:28 [place] Carbonate 300 Mg Tablet PO 300 mg DAILY SONIA Administration Lorazepam 1 mg 11/12/20 08:00 11/14/20 20:15 Lorazepam 1 Mg Tablet PO 1 mg TID@0800,1200,1800 SONIA Administration Lorazepam 1 mg 11/12/20 21:14 Lorazepam 1 Mg Tablet PO TID PRN anxiety Magnesium Hydroxide 30 ml 10/28/20 05:54 11/08/20 17:02 Milk Of Magnesia 30 Ml Oral.Susp PO 30 ml DAILY PRN Administration Constipation Metoprolol Succinate 50 mg 10/28/20 09:00 11/14/20 08:25 Metoprolol Succinate Er 50 Mg Tab.Er.24h PO 50 mg DAILY SONIA Administration Pioglitazone HCl 15 mg 10/28/20 09:00 11/14/20 08:25 Pioglitazone Hcl 15 Mg Tablet PO 15 mg DAILY SONIA Administration Risperidone 3 mg 11/04/20 18:00 11/14/20 20:15 Risperidone 3 Mg Tablet PO 3 mg BID@0800,1800 SONIA Administration Sertraline HCl 50 mg 11/13/20 09:00 11/14/20 08:24 Sertraline Hcl 50 Mg Tablet PO 50 mg DAILY SONIA Administration Trazodone HCl 100 mg 10/28/20 06:30 11/14/20 03:02 Trazodone Hcl 100 Mg Tablet PO 100 mg BEDTIME PRN Administration Insomnia Allergies Allergies Allergy/AdvReac Type Severity Reaction Status Date / Time haloperidol [From Haldol] AdvReac Unknown Verified 10/28/20 06:32 Assessment & Plan Assessment & Plan (1) Schizoaffective disorder without good prognostic features and with catatonia: Status: Acute Code(s): F25.9 - Schizoaffective disorder, unspecified; F06.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 cytomel for augmentation remains on 1.1 for safety unsteady gait lower risperadol may improve gait disturbance Greater than 50% of the session was spent on counseling and/or coordination of care Reason for contiued inpatient stay Substantial Risk for: inability to function, rapid decompensation and med/psych decompensation
[2020-11-15 06:21] LABS: Glucose, Whole Blood 113 mg/dL (60-115)
[2020-11-15] MEDS: Levothyroxine Sodium 125 MCG TABLET PO (06:26)
[2020-11-15 07:14] VITALS: BP 132/69; PULSE 74; RESP 18; TEMP 35.7; O2SAT 96
[2020-11-15 08:14] VITALS: BP 131/93; PULSE 96
[2020-11-15] MEDS: LORazepam 1 MG TABLET PO ×3 (08:14→17:25)
[2020-11-15] MEDS: Metoprolol Succinate ER 50 MG TAB.ER.24H PO (08:14)
[2020-11-15] MEDS: risperiDONE 3 MG TABLET PO ×2 (08:14→17:25)
[2020-11-15] MEDS: Sertraline HCL 50 MG TABLET PO (08:14)
[2020-11-15 08:15] VITALS: BP 131/93; PULSE 96
[2020-11-15] MEDS: Aspirin Enteric Coated 81 MG TABLET.DR PO (08:15)
[2020-11-15] MEDS: amLODIPine Besylate 10 MG TABLET PO (08:15)
[2020-11-15] MEDS: Lithium Carbonate 300 MG TABLET PO (08:15)
[2020-11-15] MEDS: Insulin Glargine,Hum.rec.anlog 100 UNIT/ML 10 ML VIAL 28 UNIT SUBCUT (08:26)
[2020-11-15 12:14] LABS: Glucose, Whole Blood 152 mg/dL (60-115)
[2020-11-15] MEDS: Insulin Lispro 100 UNIT/ML 3 ML VIAL SUBCUT ×2 (12:19→20:20)
--- NOTE | 2020-11-15 16:02 | P.PNPSI_ITS ---
Subjective Subjective Date of Service: 11/15/20 Reason For Visit: Schizoaffective Disorder acutely psychotic Subjective Notes: Conditional Voluntary Healthcare Proxy: No Guardianship: No Medical Problems Affecting Mental Status: No Interim History: Pt reports she is comfortable, denies pain, denies depression. Asks for [place]-3 supplement that she takes at home. 1- continues. Pt is more engaged, brighter than 6/5 meeting time and more interactive. Medication Compliance: Yes Side effects from medications: No Attending Groups: No Review of Systems Review of Systems Yes all other systems are reviewed and are negative (denies) Reports confusion Psychiatric: Reports anxiety, Reports confusion, Reports difficulty concentrating and Reports paranoia Mental Status Exam Mental Status Exam Patient Appearance: Unkempt Patient Orientation: Person Level of Consciousness: Alert Patient Behavior: Cooperative, Isolative and Good Eye Contact Mood Description: Cheerful Affect Description: Constricted Patient Cognition Impaired: Yes Ability to Follow Directions: Good Speech Pattern: Spontaneous Speech and Soft-Spoken Memory Description: Remote Impaired and Episodic Impaired Hallucinations: Auditory Delusions: Present Thought Process: Distracted Thought Content: positive for [place] Judgement: Poor Diagnostics Vital Signs (24Hr): Vital Signs - 24 hr 11/14/20 18:00 11/15/20 07:14 11/15/20 08:14 Temperature 98 F 96.3 F L Pulse Rate 84 74 96 Respiratory Rate 16 18 Blood Pressure 130/59 L 132/69 131/93 H Pulse Oximetry 97 96 11/15/20 08:15 Temperature Pulse Rate 96 Respiratory Rate Blood Pressure 131/93 H Pulse Oximetry Body Mass Index 33.9 Labs Results: 10/29/20 07:51 10/29/20 07:51 Labs: Laboratory Results - last 48 hr 11/13/20 11/13/20 11/14/20 16:58 20:38 06:22 POC Glucose 119 H 264 H 113 11/14/20 11/14/20 11/15/20 13:15 16:43 06:18 POC Glucose 223 H 125 H 113 11/15/20 12:10 POC Glucose 152 H Medications Medications Current Medications Generic Name Dose Route Start Last Admin Trade Name Freq PRN Reason Stop Dose Admin Acetaminophen 650 mg 10/28/20 05:54 11/04/20 13:39 Acetaminophen 325 Mg Tablet PO 650 mg Q6H PRN Administration Headache/Pain Mild Scale (1-3) Al Hydroxide/Mg Hydroxide 30 ml 10/28/20 05:54 Magnesium Hydrox/Alum Hydrox 30 Ml Oral.Susp PO Q6H PRN Heartburn/Nausea Amlodipine Besylate 10 mg 10/28/20 09:00 11/15/20 08:15 Amlodipine Besylate 10 Mg Tablet PO 10 mg DAILY SONIA Administration Aspirin 81 mg 10/28/20 09:00 11/15/20 08:15 Aspirin Enteric Coated 81 Mg Tablet.Dr PO 81 mg DAILY SONIA Administration Divalproex Sodium 750 mg 11/12/20 18:00 11/14/20 20:15 Divalproex Sodium Er 250 Mg Tab.Er.24h PO 750 mg DAILY@1800 SONIA Administration Hydroxyzine HCl 50 mg 11/02/20 10:45 11/14/20 03:02 Hydroxyzine Hcl 25 Mg Tablet PO 50 mg BEDTIME PRN Administration Insomnia Insulin Glargine 28 unit 10/31/20 09:00 11/15/20 08:26 Insulin Glargine,Hum.Rec.Anlog 100 Unit/Ml 10 Ml Vial SUBCUT 28 unit DAILY SONIA Administration Insulin Human Lispro 0 unit 10/28/20 21:00 11/15/20 12:19 Insulin Lispro 100 Unit/Ml 3 Ml Vial SUBCUT 2 unit QIDACHS [facility] Administration Protocol Levothyroxine Sodium 125 mcg 11/14/20 06:45 11/15/20 06:26 Levothyroxine Sodium 125 Mcg Tablet PO 125 mcg DAILY@0600 SONIA Administration [place] Carbonate 300 mg 10/31/20 09:00 11/15/20 08:15 [place] Carbonate 300 Mg Tablet PO 300 mg DAILY SONIA Administration Lorazepam 1 mg 11/12/20 08:00 11/15/20 12:19 Lorazepam 1 Mg Tablet PO 1 mg TID@0800,1200,1800 SONIA Administration Lorazepam 1 mg 11/12/20 21:14 Lorazepam 1 Mg Tablet PO TID PRN anxiety Magnesium Hydroxide 30 ml 10/28/20 05:54 11/08/20 17:02 Milk Of Magnesia 30 Ml Oral.Susp PO 30 ml DAILY PRN Administration Constipation Metoprolol Succinate 50 mg 10/28/20 09:00 11/15/20 08:14 Metoprolol Succinate Er 50 Mg Tab.Er.24h PO 50 mg DAILY SONIA Administration Pioglitazone HCl 15 mg 10/28/20 09:00 11/15/20 08:15 Pioglitazone Hcl 15 Mg Tablet PO 15 mg DAILY SONIA Administration Risperidone 3 mg 11/04/20 18:00 11/15/20 08:14 Risperidone 3 Mg Tablet PO 3 mg BID@0800,1800 SONIA Administration Sertraline HCl 50 mg 11/13/20 09:00 11/15/20 08:14 Sertraline Hcl 50 Mg Tablet PO 50 mg DAILY SONIA Administration Trazodone HCl 100 mg 10/28/20 06:30 11/14/20 03:02 Trazodone Hcl 100 Mg Tablet PO 100 mg BEDTIME PRN Administration Insomnia Allergies Allergies Allergy/AdvReac Type Severity Reaction Status Date / Time haloperidol [From Haldol] AdvReac Unknown Verified 10/28/20 06:32 Assessment & Plan Assessment & Plan (1) Schizoaffective disorder without good prognostic features and with catatonia: Status: Acute Code(s): F25.9 - Schizoaffective disorder, unspecified; F06.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 cytomel for augmentation remains on 1.1 for safety unsteady gait lower risperadol may improve gait disturbance Greater than 50% of the session was spent on counseling and/or coordination of care Reason for contiued inpatient stay Substantial Risk for: rapid decompensation
[2020-11-15 16:36] LABS: Glucose, Whole Blood 110 mg/dL (60-115)
[2020-11-15 16:50] VITALS: BP 137/60; PULSE 71; RESP 16; TEMP 36.3; O2SAT 96
[2020-11-15] MEDS: Divalproex Sodium ER 250 MG TAB.ER.24H 750 MG PO (17:25)
[2020-11-15 20:18] LABS: Glucose, Whole Blood 210 mg/dL (60-115)
[2020-11-16 06:43] LABS: Glucose, Whole Blood 108 mg/dL (60-115)
[2020-11-16] MEDS: Levothyroxine Sodium 125 MCG TABLET PO (06:47)
[2020-11-16 06:59] VITALS: BP 134/63; PULSE 84; RESP 18; TEMP 36.5; O2SAT 97
--- NOTE | 2020-11-16 07:35 | P.PNPSI_ITS ---
Subjective Subjective Date of Service: 11/17/20 Reason For Visit: Schizoaffective Disorder acutely psychotic Interim History: Pt reports she is comfortable, denies pain, denies depression. Asks for [place]-3 supplement that she takes at home. 1-1 con was in bed, somewhat suspicious but pleasant with this play writer. Pt reports that her roommate and roommates one to one staff are trying to hurt her. She does not speak Russian but states that she can hear them talk about her and how they may hurt her. She reports eating and sleeping well. When asked about SI- she adamantly denies stating that life is too roberto. She denies HI. She has intermittent periods of being visible in the unit, but minimally interactive with peers or staff. No behavioral concerns. Review of Systems Review of Systems unable to assess to to current psychiatric condition Yes all other systems are reviewed and are negative (denies) Reports confusion Psychiatric: Reports abnormal sleep pattern, Reports anxiety, Reports confusion, Reports depression, Reports difficulty concentrating and Reports paranoia Mental Status Exam Mental Status Exam Narrative: Appearance: casually groomed, fair hygiene, in NAD Behavior: calm, cooperative Psychomotor: no agitation or retardation noted Speech: clear, normal rate/rhythm/volume, spontaneous TP: mostly linear TC: paranoid delusions towards roommate and staff in the unit Mood: okay Affect:constricted SI:denies HI:denies AH/VH:AH- telling her that she staff/roommate trying to hurt her. Delusions:paranoid delusions Insight/judgment:impaired x 2. Memory/cog: alert, impaired secondary to psychiatric symptoms. Diagnostics Vital Signs (24Hr): Vital Signs - 24 hr 11/16/20 08:26 11/16/20 08:27 11/16/20 18:00 Temperature 97.1 F Pulse Rate 108 H 109 H Blood Pressure 158/86 H 158/86 H Body Mass Index 33.9 Labs Results: 10/29/20 07:51 10/29/20 07:51 Labs: Laboratory Results - last 48 hr 11/15/20 11/15/20 11/15/20 12:10 16:32 20:15 POC Glucose 152 H 110 210 H 11/16/20 11/16/20 11/16/20 06:38 11:57 17:01 POC Glucose 108 269 H 119 H 11/16/20 21:44 POC Glucose 181 H Medications Medications Current Medications Generic Name Dose Route Start Last Admin Trade Name Freshilpi PRN Reason Stop Dose Admin Acetaminophen 650 mg 10/28/20 05:54 11/04/20 13:39 Acetaminophen 325 Mg Tablet PO 650 mg Q6H PRN Administration Headache/Pain Mild Scale (1-3) Al Hydroxide/Mg Hydroxide 30 ml 10/28/20 05:54 Magnesium Hydrox/Alum Hydrox 30 Ml Oral.Susp PO Q6H PRN Heartburn/Nausea Amlodipine Besylate 10 mg 10/28/20 09:00 11/16/20 08:27 Amlodipine Besylate 10 Mg Tablet PO 10 mg DAILY SONIA Administration Aspirin 81 mg 10/28/20 09:00 11/16/20 08:26 Aspirin Enteric Coated 81 Mg Tablet.Dr PO 81 mg DAILY SONIA Administration Divalproex Sodium 750 mg 11/12/20 18:00 11/16/20 18:59 Divalproex Sodium Er 250 Mg Tab.Er.24h PO 750 mg DAILY@1800 [facility] Administration Hydroxyzine HCl 50 mg 11/02/20 10:45 11/14/20 03:02 Hydroxyzine Hcl 25 Mg Tablet PO 50 mg BEDTIME PRN Administration Insomnia Insulin Glargine 28 unit 10/31/20 09:00 11/16/20 08:28 Insulin Glargine,Hum.Rec.Anlog 100 Unit/Ml 10 Ml Vial SUBCUT 28 unit DAILY SONIA Administration Insulin Human Lispro 0 unit 10/28/20 21:00 11/16/20 21:51 Insulin Lispro 100 Unit/Ml 3 Ml Vial SUBCUT Not Given JOSEDAZUNILDA [facility] Protocol Levothyroxine Sodium 125 mcg 11/14/20 06:45 11/17/20 07:19 Levothyroxine Sodium 125 Mcg Tablet PO 125 mcg DAILY@06[address] Carbonate 300 mg 10/31/20 09:00 11/16/20 08:[address] Carbonate 300 Mg Tablet PO 300 mg DAILY SONIA Administration Lorazepam 1 mg 11/12/20 08:00 11/16/20 19:05 Lorazepam 1 Mg Tablet PO 1 mg TID@0800,1200,1800 SONIA Administration Lorazepam 1 mg 11/12/20 21:14 Lorazepam 1 Mg Tablet PO TID PRN anxiety Magnesium Hydroxide 30 ml 10/28/20 05:54 11/08/20 17:02 Milk Of Magnesia 30 Ml Oral.Susp PO 30 ml DAILY PRN Administration Constipation Metoprolol Succinate 50 mg 10/28/20 09:00 11/16/20 08:26 Metoprolol Succinate Er 50 Mg Tab.Er.24h PO 50 mg DAILY SONIA Administration Non-Formulary Medication 1 cap 11/16/20 09:00 Megared PO DAILY SONIA Pioglitazone HCl 15 mg 10/28/20 09:00 11/16/20 08:28 Pioglitazone Hcl 15 Mg Tablet PO 15 mg DAILY SONIA Administration Risperidone 3 mg 11/04/20 18:00 11/16/20 18:59 Risperidone 3 Mg Tablet PO 3 mg BID@0800,1800 SONIA Administration Sertraline HCl 50 mg 11/13/20 09:00 11/16/20 08:27 Sertraline Hcl 50 Mg Tablet PO 50 mg DAILY SONIA Administration Trazodone HCl 100 mg 10/28/20 06:30 11/14/20 03:02 Trazodone Hcl 100 Mg Tablet PO 100 mg BEDTIME PRN Administration Insomnia Allergies Allergies Allergy/AdvReac Type Severity Reaction Status Date / Time haloperidol [From Haldol] AdvReac Unknown Verified 10/28/20 06:32 Assessment & Plan Assessment & Plan (1) Schizoaffective disorder without good prognostic features and with catatonia: Status: Acute Code(s): F25.9 - Schizoaffective disorder, unspecified; F06.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 cytomel for augmentation remains on 06.12 for safety unsteady gait lower risperadol may improve gait disturbance Greater than 50% of the session was spent on counseling and/or coordination of care Reason for contiued inpatient stay Substantial Risk for: inability to function
[2020-11-16 08:26] VITALS: BP 158/86; PULSE 108
[2020-11-16] MEDS: Aspirin Enteric Coated 81 MG TABLET.DR PO (08:26)
[2020-11-16] MEDS: Metoprolol Succinate ER 50 MG TAB.ER.24H PO (08:26)
[2020-11-16 08:27] VITALS: BP 158/86; PULSE 109
[2020-11-16] MEDS: Sertraline HCL 50 MG TABLET PO (08:27)
[2020-11-16] MEDS: risperiDONE 3 MG TABLET PO ×2 (08:27→18:59)
[2020-11-16] MEDS: LORazepam 1 MG TABLET PO ×3 (08:27→19:05)
[2020-11-16] MEDS: amLODIPine Besylate 10 MG TABLET PO (08:27)
[2020-11-16] MEDS: Lithium Carbonate 300 MG TABLET PO (08:28)
[2020-11-16] MEDS: Insulin Glargine,Hum.rec.anlog 100 UNIT/ML 10 ML VIAL 28 UNIT SUBCUT (08:28)
[2020-11-16 12:07] LABS: Glucose, Whole Blood 269 mg/dL (60-115)
[2020-11-16] MEDS: Insulin Lispro 100 UNIT/ML 3 ML VIAL SUBCUT (12:19)
[2020-11-16 17:16] LABS: Glucose, Whole Blood 119 mg/dL (60-115)
[2020-11-16 18:00] VITALS: TEMP 36.2
[2020-11-16] MEDS: Divalproex Sodium ER 250 MG TAB.ER.24H 750 MG PO (18:59)
[2020-11-16 21:55] LABS: Glucose, Whole Blood 181 mg/dL (60-115)
[2020-11-17 06:30] VITALS: BP 147/67; PULSE 73; RESP 18; TEMP 36.4; O2SAT 96
[2020-11-17] MEDS: Levothyroxine Sodium 125 MCG TABLET PO (07:19)
[2020-11-17 07:35] LABS: Glucose, Whole Blood 112 mg/dL (60-115)
[2020-11-17 09:03] VITALS: BP 147/67; PULSE 73
[2020-11-17] MEDS: Aspirin Enteric Coated 81 MG TABLET.DR PO (09:03)
[2020-11-17] MEDS: amLODIPine Besylate 10 MG TABLET PO (09:03)
[2020-11-17] MEDS: risperiDONE 3 MG TABLET PO ×2 (09:03→17:04)
[2020-11-17] MEDS: Lithium Carbonate 300 MG TABLET PO (09:04)
[2020-11-17 09:05] VITALS: BP 147/67; PULSE 73
[2020-11-17] MEDS: Sertraline HCL 50 MG TABLET PO (09:05)
[2020-11-17] MEDS: Metoprolol Succinate ER 50 MG TAB.ER.24H PO (09:05)
[2020-11-17] MEDS: Insulin Glargine,Hum.rec.anlog 100 UNIT/ML 10 ML VIAL 28 UNIT SUBCUT (09:06)
[2020-11-17] MEDS: LORazepam 1 MG TABLET PO ×2 (09:49→12:46)
[2020-11-17 11:49] LABS: Glucose, Whole Blood 200 mg/dL (60-115)
[2020-11-17] MEDS: Insulin Lispro 100 UNIT/ML 3 ML VIAL SUBCUT ×2 (12:46→17:04)
[2020-11-17 16:58] LABS: Glucose, Whole Blood 195 mg/dL (60-115)
[2020-11-17] MEDS: Divalproex Sodium ER 250 MG TAB.ER.24H 750 MG PO (17:04)
[2020-11-17 18:00] VITALS: RESP 16
--- NOTE | 2020-11-17 21:12 | HO.PSYCHPN ---
Subjective Subjective Date of Service: 11/17/20 Reason For Visit: Schizoaffective Disorder acutely psychotic Subjective Notes: Conditional Voluntary Guardianship: Yes Medical Problems Affecting Mental Status: No Interim History: Periods of paranoia lethargy and depression. Often in bed fearful of others depressed tearful Medication Compliance: Yes Side effects from medications: Yes Attending Groups: No Mental Status Exam Mental Status Exam Patient Appearance: Appropriate Patient Orientation: Person and Situation Level of Consciousness: Lethargic Patient Behavior: Guarded, Avoidant and Isolative Mood Description: Depressed, Flat and Apprehensive Affect Description: Constricted Ability to Follow Directions: Fair Speech Pattern: Impoverished and Monotone Memory Description: Episodic Impaired Hallucinations: Auditory Delusions: Paranoid Ideation (Thinks staff and other patients may be trying to hurt her) Thought Process: Rumination and Slowed Thinking Thought Content: positive for [place], positive for Preoccupation (With loss of her children), negative for Suicidal Ideation and negative for Homicidal Ideation Depressive Symptoms: Increased Anxiety, Sleeping More Than Usual, Isolating-Friends/Family, Increased Fatigue, Loss of Energy and Difficulty Concentrating Abnormal Motor Activity Signs and Symptoms: Psychomotor Retardation Diagnostics Vital Signs (24Hr): Vital Signs - 24 hr 11/17/20 06:30 11/17/20 09:03 11/17/20 09:05 Temperature 97.5 F Pulse Rate 73 73 73 Respiratory Rate 18 Blood Pressure 147/67 H 147/67 H 147/67 H Pulse Oximetry 96 11/17/20 18:00 Temperature Pulse Rate Respiratory Rate 16 Blood Pressure Pulse Oximetry Body Mass Index 33.9 Labs Results: 10/29/20 07:51 10/29/20 07:51 Labs: Laboratory Results - last 48 hr 11/16/20 11/16/20 11/16/20 06:38 11:57 17:01 POC Glucose 108 269 H 119 H 11/16/20 11/17/20 11/17/20 21:44 07:31 11:44 POC Glucose 181 H 112 200 H 11/17/20 16:52 POC Glucose 195 H Medications Medications Current Medications Generic Name Dose Route Start Last Admin Trade Name Freq PRN Reason Stop Dose Admin Acetaminophen 650 mg 10/28/20 05:54 11/04/20 13:39 Acetaminophen 325 Mg Tablet PO 650 mg Q6H PRN Administration Headache/Pain Mild Scale (1-3) Al Hydroxide/Mg Hydroxide 30 ml 10/28/20 05:54 Magnesium Hydrox/Alum Hydrox 30 Ml Oral.Susp PO Q6H PRN Heartburn/Nausea Amlodipine Besylate 10 mg 10/28/20 09:00 11/17/20 09:03 Amlodipine Besylate 10 Mg Tablet PO 10 mg DAILY [facility] Administration Aspirin 81 mg 10/28/20 09:00 11/17/20 09:03 Aspirin Enteric Coated 81 Mg Tablet.Dr PO 81 mg DAILY SONIA Administration Divalproex Sodium 750 mg 11/12/20 18:00 11/17/20 17:04 Divalproex Sodium Er 250 Mg Tab.Er.24h PO 750 mg DAILY@1800 [facility] Administration Hydroxyzine HCl 50 mg 11/02/20 10:45 11/14/20 03:02 Hydroxyzine Hcl 25 Mg Tablet PO 50 mg BEDTIME PRN Administration Insomnia Insulin Glargine 28 unit 10/31/20 09:00 11/17/20 09:06 Insulin Glargine,Hum.Rec.Anlog 100 Unit/Ml 10 Ml Vial SUBCUT 28 unit DAILY [facility] Administration Insulin Human Lispro 0 unit 10/28/20 21:00 11/17/20 17:04 Insulin Lispro 100 Unit/Ml 3 Ml Vial SUBCUT 2 unit QIDACHS [facility] Administration Protocol Levothyroxine Sodium 125 mcg 11/14/20 06:45 11/17/20 07:19 Levothyroxine Sodium 125 Mcg Tablet PO 125 mcg DAILY@0600 [facility] Administration [place] Carbonate 300 mg 10/31/20 09:00 11/17/20 09:04 [place] Carbonate 300 Mg Tablet PO 300 mg DAILY SONIA Administration Lorazepam 1 mg 11/12/20 08:00 11/17/20 19:03 Lorazepam 1 Mg Tablet PO Not Given TID@0800,1200,1800 [facility] Lorazepam 1 mg 11/12/20 21:14 Lorazepam 1 Mg Tablet PO TID PRN anxiety Magnesium Hydroxide 30 ml 10/28/20 05:54 11/08/20 17:02 Milk Of Magnesia 30 Ml Oral.Susp PO 30 ml DAILY PRN Administration Constipation Metoprolol Succinate 50 mg 10/28/20 09:00 11/17/20 09:05 Metoprolol Succinate Er 50 Mg Tab.Er.24h PO 50 mg DAILY [facility] Administration Non-Formulary Medication 1 cap 11/16/20 09:00 Megared PO DAILY SONIA Pioglitazone HCl 15 mg 10/28/20 09:00 11/17/20 10:42 Pioglitazone Hcl 15 Mg Tablet PO 15 mg DAILY SONIA Administration Risperidone 3 mg 11/04/20 18:00 11/17/20 17:04 Risperidone 3 Mg Tablet PO 3 mg BID@0800,1800 SONIA Administration Sertraline HCl 50 mg 11/13/20 09:00 11/17/20 09:05 Sertraline Hcl 50 Mg Tablet PO 50 mg DAILY SONIA Administration Trazodone HCl 100 mg 10/28/20 06:30 11/14/20 03:02 Trazodone Hcl 100 Mg Tablet PO 100 mg BEDTIME PRN Administration Insomnia Allergies Allergies Allergy/AdvReac Type Severity Reaction Status Date / Time haloperidol [From Haldol] AdvReac Unknown Verified 10/28/20 06:32 Assessment & Plan Assessment & Plan (1) Schizoaffective disorder without good prognostic features and with catatonia: Status: Acute Code(s): F25.9 - Schizoaffective disorder, unspecified; F06.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 (2) HTN (hypertension): Status: Acute Code(s): I10 - Essential (primary) hypertension Assessment and Plan: Increase sertraline secondary depressive symptoms lower Ativan secondary to lethargy change more Risperdal to bedtime Greater than 50% of the session was spent on counseling and/or coordination of care Reason for contiued inpatient stay Substantial Risk for: inability to function and rapid decompensation
[2020-11-17] MEDS: traZODone HCL 100 MG TABLET PO (23:09)
[2020-11-18] MEDS: Levothyroxine Sodium 125 MCG TABLET PO (06:31)
[2020-11-18 07:07] LABS: Glucose, Whole Blood 84 mg/dL (60-115)
[2020-11-18 07:09] VITALS: BP 141/62; PULSE 75; RESP 16; TEMP 36.1; O2SAT 96
[2020-11-18 08:53] VITALS: BP 165/84; PULSE 84
[2020-11-18] MEDS: Lithium Carbonate 300 MG TABLET PO (08:53)
[2020-11-18] MEDS: amLODIPine Besylate 10 MG TABLET PO (08:53)
[2020-11-18] MEDS: Sertraline HCL 50 MG TABLET 100 MG PO (08:54)
[2020-11-18] MEDS: Aspirin Enteric Coated 81 MG TABLET.DR PO (08:54)
[2020-11-18] MEDS: Metoprolol Succinate ER 50 MG TAB.ER.24H PO (08:54)
[2020-11-18] MEDS: Insulin Glargine,Hum.rec.anlog 100 UNIT/ML 10 ML VIAL 28 UNIT SUBCUT (08:57)
[2020-11-18] MEDS: LORazepam 1 MG TABLET PO (09:00)
[2020-11-18 12:00] LABS: Glucose, Whole Blood 161 mg/dL (60-115)
[2020-11-18] MEDS: LORazepam 0.5 MG TABLET PO ×2 (12:01→17:26)
[2020-11-18 13:00] VITALS: BP 133/69; PULSE 74; O2SAT 98
[2020-11-18] MEDS: Insulin Lispro 100 UNIT/ML 3 ML VIAL SUBCUT (17:13)
[2020-11-18] MEDS: Divalproex Sodium ER 250 MG TAB.ER.24H 750 MG PO (17:15)
[2020-11-18] MEDS: metFORMIN HCl 500 MG TABLET PO (17:15)
[2020-11-18 17:26] LABS: Glucose, Whole Blood 206 mg/dL (60-115)
[2020-11-18 18:00] VITALS: BP 137/82; PULSE 73; RESP 16; TEMP 36.6; O2SAT 98
[2020-11-18] MEDS: risperiDONE 2 MG TABLET 4 MG PO (20:48)
[2020-11-18 21:17] LABS: Glucose, Whole Blood 145 mg/dL (60-115)
--- NOTE | 2020-11-18 22:14 | HO.PSYCHPN ---
Subjective Subjective Date of Service: 11/18/20 Reason For Visit: Schizoaffective Disorder acutely psychotic Subjective Notes: Conditional Voluntary Guardianship: Yes Interim History: pt doing better less withdrawn more alert pos [facility] Mental Status Exam Mental Status Exam Patient Appearance: Appropriate Patient Orientation: Person and Situation Level of Consciousness: Lethargic Patient Behavior: Guarded, Avoidant and Isolative Mood Description: Depressed, Flat and Apprehensive Affect Description: Constricted Ability to Follow Directions: Fair Speech Pattern: Impoverished and Monotone Memory Description: Episodic Impaired Hallucinations: Auditory Delusions: Paranoid Ideation (Thinks staff and other patients may be trying to hurt her) Thought Process: Rumination and Slowed Thinking Thought Content: positive for [place], positive for Preoccupation (With loss of her children), negative for Suicidal Ideation and negative for Homicidal Ideation Depressive Symptoms: Increased Anxiety, Sleeping More Than Usual, Isolating-Friends/Family, Increased Fatigue, Loss of Energy and Difficulty Concentrating Abnormal Motor Activity Signs and Symptoms: Psychomotor Retardation Judgement: Fair Diagnostics Vital Signs (24Hr): Vital Signs - 24 hr 11/18/20 07:09 11/18/20 08:53 11/18/20 13:00 Temperature 97 F Pulse Rate 75 84 74 Respiratory Rate 16 Blood Pressure 141/62 H 165/84 H 133/69 Pulse Oximetry 96 98 11/18/20 18:00 Temperature 97.8 F Pulse Rate 73 Respiratory Rate 16 Blood Pressure 137/82 Pulse Oximetry 98 Body Mass Index 33.9 Labs Results: 10/29/20 07:51 10/29/20 07:51 Labs: Laboratory Results - last 48 hr 11/17/20 11/17/20 11/17/20 07:31 11:44 16:52 POC Glucose 112 200 H 195 H 11/18/20 11/18/20 11/18/20 06:10 11:53 17:02 POC Glucose 84 161 H 206 H 11/18/20 20:42 POC Glucose 145 H Medications Medications Current Medications Generic Name Dose Route Start Last Admin Trade Name Freq PRN Reason Stop Dose Admin Acetaminophen 650 mg 10/28/20 05:54 11/04/20 13:39 Acetaminophen 325 Mg Tablet PO 650 mg Q6H PRN Administration Headache/Pain Mild Scale (1-3) Al Hydroxide/Mg Hydroxide 30 ml 10/28/20 05:54 Magnesium Hydrox/Alum Hydrox 30 Ml Oral.Susp PO Q6H PRN Heartburn/Nausea Amlodipine Besylate 10 mg 10/28/20 09:00 11/18/20 08:53 Amlodipine Besylate 10 Mg Tablet PO 10 mg DAILY SONIA Administration Aspirin 81 mg 10/28/20 09:00 11/18/20 08:54 Aspirin Enteric Coated 81 Mg Tablet.Dr PO 81 mg DAILY SONIA Administration Divalproex Sodium 750 mg 11/12/20 18:00 11/18/20 17:15 Divalproex Sodium Er 250 Mg Tab.Er.24h PO 750 mg DAILY@1800 SONIA Administration Hydroxyzine HCl 50 mg 11/02/20 10:45 11/14/20 03:02 Hydroxyzine Hcl 25 Mg Tablet PO 50 mg BEDTIME PRN Administration Insomnia Insulin Glargine 28 unit 10/31/20 09:00 11/18/20 08:57 Insulin Glargine,Hum.Rec.Anlog 100 Unit/Ml 10 Ml Vial SUBCUT 28 unit DAILY SONIA Administration Insulin Human Lispro 0 unit 10/28/20 21:00 11/18/20 20:45 Insulin Lispro 100 Unit/Ml 3 Ml Vial SUBCUT Not Given QIDAS [facility]1983 Protocol Levothyroxine Sodium 125 mcg 11/14/20 06:45 11/18/20 06:31 Levothyroxine Sodium 125 Mcg Tablet PO 125 mcg DAILY@0600 SONIA Administration [place] Carbonate 300 mg 10/31/20 09:00 11/18/20 08:53 [place] Carbonate 300 Mg Tablet PO 300 mg DAILY SONIA Administration Lorazepam 0.5 mg 11/18/20 12:00 11/18/20 17:26 Lorazepam 0.5 Mg Tablet PO 0.5 mg TID@0800,1200,1800 [facility] Administration Magnesium Hydroxide 30 ml 10/28/20 05:54 11/08/20 17:02 Milk Of Magnesia 30 Ml Oral.Susp PO 30 ml DAILY PRN Administration Constipation Metformin HCl 500 mg 11/18/20 17:00 11/18/20 17:15 Metformin Hcl 500 Mg Tablet PO 500 mg BIDWM SONIA Administration Metoprolol Succinate 50 mg 10/28/20 09:00 11/18/20 08:54 Metoprolol Succinate Er 50 Mg Tab.Er.24h PO 50 mg DAILY SONIA Administration Non-Formulary Medication 1 cap 11/16/20 09:00 Megared PO DAILY SONIA Pioglitazone HCl 15 mg 10/28/20 09:00 11/18/20 08:53 Pioglitazone Hcl 15 Mg Tablet PO 15 mg DAILY SONIA Administration Risperidone 4 mg 11/18/20 21:00 11/18/20 20:48 Risperidone 2 Mg Tablet PO 4 mg BEDTIME SONIA Administration Risperidone 0.5 mg 11/18/20 07:35 Risperidone 0.5 Mg Tablet PO Q4H PRN Psychosis Sertraline HCl 100 mg 11/18/20 09:00 11/18/20 08:54 Sertraline Hcl 50 Mg Tablet PO 100 mg DAILY SONIA Administration Trazodone HCl 100 mg 10/28/20 06:30 11/17/20 23:09 Trazodone Hcl 100 Mg Tablet PO 100 mg BEDTIME PRN Administration Insomnia Allergies Allergies Allergy/AdvReac Type Severity Reaction Status Date / Time haloperidol [From Haldol] AdvReac Unknown Verified 10/28/20 06:32 Assessment & Plan Assessment & Plan (1) Schizoaffective disorder without good prognostic features and with catatonia: Status: Acute Code(s): F25.9 - Schizoaffective disorder, unspecified; F06.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
[2020-11-19] MEDS: Levothyroxine Sodium 125 MCG TABLET PO (06:14)
[2020-11-19 06:36] LABS: Glucose, Whole Blood 93 mg/dL (60-115)
[2020-11-19 07:00] VITALS: BMI 34.1
[2020-11-19 07:24] VITALS: BP 139/77; PULSE 70; RESP 20; TEMP 36.6; O2SAT 99
[2020-11-19 08:57] VITALS: BP 113/69; PULSE 89
[2020-11-19] MEDS: metFORMIN HCl 500 MG TABLET PO ×2 (08:57→16:59)
[2020-11-19] MEDS: Sertraline HCL 50 MG TABLET 100 MG PO (08:57)
[2020-11-19] MEDS: Lithium Carbonate 300 MG TABLET PO (08:57)
[2020-11-19] MEDS: amLODIPine Besylate 10 MG TABLET PO (08:57)
[2020-11-19] MEDS: Aspirin Enteric Coated 81 MG TABLET.DR PO (08:58)
[2020-11-19] MEDS: LORazepam 0.5 MG TABLET PO ×3 (08:58→16:59)
[2020-11-19] MEDS: Metoprolol Succinate ER 50 MG TAB.ER.24H PO (08:58)
[2020-11-19 09:00] VITALS: RESP 16; TEMP 36.3; O2SAT 97
[2020-11-19] MEDS: Insulin Glargine,Hum.rec.anlog 100 UNIT/ML 10 ML VIAL 28 UNIT SUBCUT (09:32)
[2020-11-19 11:58] LABS: Glucose, Whole Blood 191 mg/dL (60-115)
[2020-11-19] MEDS: Insulin Lispro 100 UNIT/ML 3 ML VIAL SUBCUT (12:01)
[2020-11-19 16:19] VITALS: RESP 18
[2020-11-19] MEDS: Divalproex Sodium ER 250 MG TAB.ER.24H 750 MG PO (16:59)
[2020-11-19 20:38] LABS: Glucose, Whole Blood 218 mg/dL (60-115)
--- NOTE | 2020-11-19 22:24 | P.PNPSI_ITS ---
Subjective Subjective Date of Service: 11/19/20 Reason For Visit: Schizoaffective Disorder acutely psychotic Subjective Notes: Conditional Voluntary Guardianship: Yes Interim History: Patient had intermittently been refusing medication today yet was smiling pleasant when seen had a much hahn affects stated she was feeling better. Intermittent paranoia hahn range of affect withdrawn mostly in bed still answers with limited information but when seen grade to take medication could not explain earlier behavior intermittent fear that others are conspiring against her intermittent auditory hallucinations talking to herself and fearful ness Medication Compliance: Intermittent Mental Status Exam Mental Status Exam Patient Appearance: Appropriate Patient Orientation: Person, Place and Situation Level of Consciousness: Awake Patient Behavior: Guarded, Suspicious, Anxious, Avoidant, Isolative and Uncooperative (Intermittently uncooperative irritable ) Mood Description: Depressed, Flat and Apprehensive Affect Description: Constricted Ability to Follow Directions: Fair Speech Pattern: Impoverished and Monotone Memory Description: Episodic Impaired Hallucinations: Auditory Delusions: Paranoid Ideation (Thinks staff and other patients may be trying to hurt her) Thought Process: Rumination and Slowed Thinking Thought Content: positive for [place], positive for Preoccupation (With loss of her children), negative for Suicidal Ideation and negative for Homicidal Ideation Depressive Symptoms: Increased Anxiety, Sleeping More Than Usual, Isolating- Friends/Family, Increased Fatigue, Loss of Energy and Difficulty Concentrating Abnormal Motor Activity Signs and Symptoms: Psychomotor Retardation Judgement: Fair Judgement and Insight: Patient's mood somewhat erratic and labile increased range of affect intermittent paranoia and suspiciousness causing her to fuse medication cannot explain some behavior but improvement and range of affect and more verbal Diagnostics Vital Signs (24Hr): Vital Signs - 24 hr 11/19/20 07:24 11/19/20 08:57 11/19/20 09:00 Temperature 97.8 F 97.4 F Pulse Rate 70 89 Respiratory Rate 20 16 Blood Pressure 139/77 113/69 Pulse Oximetry 99 97 11/19/20 16:19 Temperature Pulse Rate Respiratory Rate 18 Blood Pressure Pulse Oximetry Body Mass Index 34.1 Labs Results: 10/29/20 07:51 10/29/20 07:51 Labs: Laboratory Results - last 48 hr 11/18/20 11/18/20 11/18/20 06:10 11:53 17:02 POC Glucose 84 161 H 206 H 11/18/20 11/19/20 11/19/20 20:42 06:19 11:54 POC Glucose 145 H 93 191 H 11/19/20 17:04 POC Glucose 218 H Medications Medications Current Medications Generic Name Dose Route Start Last Admin Trade Name Sarita PRN Reason Stop Dose Admin Acetaminophen 650 mg 10/28/20 05:54 11/04/20 13:39 Acetaminophen 325 Mg Tablet PO 650 mg Q6H PRN Administration Headache/Pain Mild Scale (1-3) Al Hydroxide/Mg Hydroxide 30 ml 10/28/20 05:54 Magnesium Hydrox/Alum Hydrox 30 Ml Oral.Susp PO Q6H PRN Heartburn/Nausea Amlodipine Besylate 10 mg 10/28/20 09:00 11/19/20 08:57 Amlodipine Besylate 10 Mg Tablet PO 10 mg DAILY SONIA Administration Artificial Tears 2 drop 11/19/20 13:19 Artificial Tears 15 Ml Drops EYE-BOTH Q4H PRN Dry Eyes Aspirin 81 mg 10/28/20 09:00 11/19/20 08:58 Aspirin Enteric Coated 81 Mg Tablet.Dr PO 81 mg DAILY SONIA Administration Divalproex Sodium 750 mg 11/12/20 18:00 11/19/20 16:59 Divalproex Sodium Er 250 Mg Tab.Er.24h PO 750 mg DAILY@1800 SONIA Administration Hydroxyzine HCl 50 mg 11/02/20 10:45 11/14/20 03:02 Hydroxyzine Hcl 25 Mg Tablet PO 50 mg BEDTIME PRN Administration Insomnia Insulin Glargine 28 unit 10/31/20 09:00 11/19/20 09:32 Insulin Glargine,Hum.Rec.Anlog 100 Unit/Ml 10 Ml Vial SUBCUT 28 unit DAILY SONIA Administration Insulin Human Lispro 0 unit 10/28/20 21:00 11/19/20 20:39 Insulin Lispro 100 Unit/Ml 3 Ml Vial SUBCUT Not Given QIDACHS [facility] Protocol Levothyroxine Sodium 125 mcg 11/14/20 06:45 11/19/20 06:14 Levothyroxine Sodium 125 Mcg Tablet PO 125 mcg DAILY@0600 SONIA Administration [place] Carbonate 300 mg 10/31/20 09:00 11/19/20 08:57 [place] Carbonate 300 Mg Tablet PO 300 mg DAILY SONIA Administration Lorazepam 0.5 mg 11/18/20 12:00 11/19/20 16:59 Lorazepam 0.5 Mg Tablet PO 0.5 mg TID@0800,1200,1800 SONIA Administration Magnesium Hydroxide 30 ml 10/28/20 05:54 11/08/20 17:02 Milk Of Magnesia 30 Ml Oral.Susp PO 30 ml DAILY PRN Administration Constipation Metformin HCl 500 mg 11/18/20 17:00 11/19/20 16:59 Metformin Hcl 500 Mg Tablet PO 500 mg BIDWM SONIA Administration Metoprolol Succinate 50 mg 10/28/20 09:00 11/19/20 08:58 Metoprolol Succinate Er 50 Mg Tab.Er.24h PO 50 mg DAILY SONIA Administration Pioglitazone HCl 15 mg 10/28/20 09:00 11/19/20 08:58 Pioglitazone Hcl 15 Mg Tablet PO 15 mg DAILY SONIA Administration Risperidone 4 mg 11/18/20 21:00 11/19/20 20:39 Risperidone 2 Mg Tablet PO Not Given BEDTIME SONIA Risperidone 0.5 mg 11/18/20 07:35 Risperidone 0.5 Mg Tablet PO Q4H PRN Psychosis Sertraline HCl 100 mg 11/18/20 09:00 11/19/20 08:57 Sertraline Hcl 50 Mg Tablet PO 100 mg DAILY SONIA Administration Trazodone HCl 100 mg 10/28/20 06:30 11/17/20 23:09 Trazodone Hcl 100 Mg Tablet PO 100 mg BEDTIME PRN Administration Insomnia Allergies Allergies Allergy/AdvReac Type Severity Reaction Status Date / Time haloperidol [From Haldol] AdvReac Unknown Verified 10/28/20 06:32 Assessment & Plan Assessment & Plan (1) Schizoaffective disorder without good prognostic features and with catatonia: Status: Acute Code(s): F25.9 - Schizoaffective disorder, unspecified; F06.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 (2) HTN (hypertension): Status: Acute Code(s): I10 - Essential (primary) hypertension Assessment and Plan: Continue sertraline secondary depressive symptoms lower Ativan secondary to leth argy change more Risperdal to bedtime ect pending stafford order metformin restarted Monitor for increased agitation and irritability with sertraline at 100 mg Increase Risperdal 5 mg secondary to paranoia increase Depakote to a 1000 mg secondary to mood instability Greater than 50% of the session was spent on counseling and/or coordination of care Reason for contiued inpatient stay Substantial Risk for: inability to function, rapid decompensation and med/psych decompensation
[2020-11-20] MEDS: hydrOXYzine HCL 25 MG TABLET 50 MG PO (00:12)
[2020-11-20] MEDS: traZODone HCL 100 MG TABLET PO (00:12)
[2020-11-20 06:17] LABS: Glucose, Whole Blood 111 mg/dL (60-115)
[2020-11-20] MEDS: Levothyroxine Sodium 125 MCG TABLET PO (06:23)
[2020-11-20 06:34] VITALS: BP 137/62; PULSE 57; RESP 16; TEMP 37; O2SAT 98
[2020-11-20 08:44] VITALS: BP 153/79; PULSE 84
[2020-11-20] MEDS: Sertraline HCL 50 MG TABLET 100 MG PO (08:44)
[2020-11-20] MEDS: amLODIPine Besylate 10 MG TABLET PO (08:44)
[2020-11-20] MEDS: LORazepam 0.5 MG TABLET PO ×3 (08:44→18:16)
[2020-11-20] MEDS: Metoprolol Succinate ER 50 MG TAB.ER.24H PO (08:44)
[2020-11-20] MEDS: Aspirin Enteric Coated 81 MG TABLET.DR PO (08:44)
[2020-11-20] MEDS: Lithium Carbonate 300 MG TABLET PO (08:44)
[2020-11-20] MEDS: metFORMIN HCl 500 MG TABLET PO (08:44)
[2020-11-20] MEDS: Insulin Glargine,Hum.rec.anlog 100 UNIT/ML 10 ML VIAL 28 UNIT SUBCUT (08:51)
[2020-11-20 11:52] LABS: Glucose, Whole Blood 185 mg/dL (60-115)
[2020-11-20] MEDS: Insulin Lispro 100 UNIT/ML 3 ML VIAL SUBCUT (12:16)
[2020-11-20] MEDS: Divalproex Sodium ER 500 MG TAB.ER.24H 1000 MG PO (18:16)
--- NOTE | 2020-11-20 18:55 | HO.PSYCHPN ---
Subjective Subjective Date of Service: 11/20/20 Reason For Visit: Schizoaffective Disorder acutely psychotic Subjective Notes: Conditional Voluntary Healthcare Proxy: No Guardianship: No Medical Problems Affecting Mental Status: No Interim History: Today pt experienced significant agitation. Discussed with team who attributes this symptoms to Sertraline titration. Pt reports she is well, denies complaints, praises God for her health. She has a slight hand tremor and is in bed, appears guarded and and anxious. Medication Compliance: Yes Side effects from medications: Yes (?agitation from Sertraline) Attending Groups: No Review of Systems Reports behavioral changes Psychiatric: Reports anxiety, Reports behavioral changes, Reports depression, Reports difficulty concentrating, Reports irritability and Reports mood swings Mental Status Exam Mental Status Exam Patient Appearance: Disheveled Patient Orientation: Person Level of Consciousness: Alert Patient Behavior: Guarded, Talkative and Suspicious Mood Description: Anxious and Labile Affect Description: Labile Patient Cognition Impaired: Yes Ability to Follow Directions: Fair Speech Pattern: Spontaneous Speech Memory Description: Remote Impaired and Episodic Impaired Hallucinations: None Delusions: Paranoid Ideation Thought Content: positive for [place] Depressive Symptoms: Increased Anxiety and Increased Irritability Judgement: Poor Diagnostics Vital Signs (24Hr): Vital Signs - 24 hr 11/20/20 06:34 11/20/20 08:44 Temperature 98.6 F Pulse Rate 57 84 Respiratory Rate 16 Blood Pressure 137/62 153/79 H Pulse Oximetry 98 Body Mass Index 34.1 Labs Results: 10/29/20 07:51 10/29/20 07:51 Labs: Laboratory Results - last 48 hr 11/18/20 11/19/20 11/19/20 20:42 06:19 11:54 POC Glucose 145 H 93 191 H 11/19/20 11/20/20 11/20/20 17:04 06:10 11:48 POC Glucose 218 H 111 185 H Medications Medications Current Medications Generic Name Dose Route Start Last Admin Trade Name Freq PRN Reason Stop Dose Admin Acetaminophen 650 mg 10/28/20 05:54 11/04/20 13:39 Acetaminophen 325 Mg Tablet PO 650 mg Q6H PRN Administration Headache/Pain Mild Scale (1-3) Al Hydroxide/Mg Hydroxide 30 ml 10/28/20 05:54 Magnesium Hydrox/Alum Hydrox 30 Ml Oral.Susp PO Q6H PRN Heartburn/Nausea Amlodipine Besylate 10 mg 10/28/20 09:00 11/20/20 08:44 Amlodipine Besylate 10 Mg Tablet PO 10 mg DAILY SONIA Administration Artificial Tears 2 drop 11/19/20 13:19 Artificial Tears 15 Ml Drops EYE-BOTH Q4H PRN Dry Eyes Aspirin 81 mg 10/28/20 09:00 11/20/20 08:44 Aspirin Enteric Coated 81 Mg Tablet.Dr PO 81 mg DAILY SONIA Administration Divalproex Sodium 1,000 mg 11/20/20 18:00 11/20/20 18:16 Divalproex Sodium Er 500 Mg Tab.Er.24h PO 1,000 mg DAILY@1800 SONIA Administration Hydroxyzine HCl 50 mg 11/02/20 10:45 11/20/20 00:12 Hydroxyzine Hcl 25 Mg Tablet PO 50 mg BEDTIME PRN Administration Insomnia Insulin Glargine 28 unit 10/31/20 09:00 11/20/20 08:51 Insulin Glargine,Hum.Rec.Anlog 100 Unit/Ml 10 Ml Vial SUBCUT 28 unit DAILY SONIA Administration Insulin Human Lispro 0 unit 10/28/20 21:00 11/20/20 17:11 Insulin Lispro 100 Unit/Ml 3 Ml Vial SUBCUT Not Given QIDACHS [facility] Protocol Levothyroxine Sodium 125 mcg 11/14/20 06:45 11/20/20 06:23 Levothyroxine Sodium 125 Mcg Tablet PO 125 mcg DAILY@0600 SONIA Administration [place] Carbonate 300 mg 10/31/20 09:00 11/20/20 08:44 [place] Carbonate 300 Mg Tablet PO 300 mg DAILY SONIA Administration Lorazepam 0.5 mg 11/18/20 12:00 11/20/20 18:16 Lorazepam 0.5 Mg Tablet PO 0.5 mg TID@0800,1200,1800 [facility] Administration Magnesium Hydroxide 30 ml 10/28/20 05:54 11/08/20 17:02 Milk Of Magnesia 30 Ml Oral.Susp PO 30 ml DAILY PRN Administration Constipation Metformin HCl 500 mg 11/18/20 17:00 11/20/20 17:19 Metformin Hcl 500 Mg Tablet PO Not Given BIDWM [facility] Metoprolol Succinate 50 mg 10/28/20 09:00 11/20/20 08:44 Metoprolol Succinate Er 50 Mg Tab.Er.24h PO 50 mg DAILY SONIA Administration Pioglitazone HCl 15 mg 10/28/20 09:00 11/20/20 08:44 Pioglitazone Hcl 15 Mg Tablet PO 15 mg DAILY SONIA Administration Risperidone 0.5 mg 11/18/20 07:35 Risperidone 0.5 Mg Tablet PO Q4H PRN Psychosis Risperidone 5 mg 11/20/20 21:00 Risperidone 1 Mg Tablet PO BEDTIME SONIA Trazodone HCl 100 mg 10/28/20 06:30 11/20/20 00:12 Trazodone Hcl 100 Mg Tablet PO 100 mg BEDTIME PRN Administration Insomnia Allergies Allergies Allergy/AdvReac Type Severity Reaction Status Date / Time haloperidol [From Haldol] AdvReac Unknown Verified 10/28/20 06:32 Assessment & Plan Assessment & Plan (1) Schizoaffective disorder without good prognostic features and with catatonia: Status: Acute Code(s): F25.9 - Schizoaffective disorder, unspecified; F06.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 (2) HTN (hypertension): Status: Acute Code(s): I10 - Essential (primary) hypertension Assessment and Plan: Hold sertraline for secondary depressive symptoms as pt experiencing significant agitation today. lower Ativan secondary to lethargy change more Risperdal to bedtime ect pending stafford order metformin restarted Monitor for increased agitation and irritability with sertraline at 100 mg Increase Risperdal 5 mg secondary to paranoia increase Depakote to a 1000 mg secondary to mood instability Greater than 50% of the session was spent on counseling and/or coordination of care Reason for contiued inpatient stay Substantial Risk for: harm to self, inability to function, rapid decompensation and med/psych decompensation
[2020-11-21] MEDS: Levothyroxine Sodium 125 MCG TABLET PO (06:45)
[2020-11-21 07:17] LABS: Glucose, Whole Blood 83 mg/dL (60-115)
[2020-11-21 07:20] VITALS: BP 128/61; PULSE 71; RESP 20; TEMP 35.9; O2SAT 98
[2020-11-21 09:08] VITALS: BP 134/70; PULSE 75
[2020-11-21] MEDS: amLODIPine Besylate 10 MG TABLET PO (09:08)
[2020-11-21] MEDS: LORazepam 0.5 MG TABLET PO ×3 (09:08→18:17)
[2020-11-21] MEDS: metFORMIN HCl 500 MG TABLET PO ×2 (09:08→18:16)
[2020-11-21] MEDS: Metoprolol Succinate ER 50 MG TAB.ER.24H PO (09:08)
[2020-11-21] MEDS: Lithium Carbonate 300 MG TABLET PO (09:08)
[2020-11-21] MEDS: Aspirin Enteric Coated 81 MG TABLET.DR PO (09:08)
[2020-11-21] MEDS: Insulin Glargine,Hum.rec.anlog 100 UNIT/ML 10 ML VIAL 28 UNIT SUBCUT (09:14)
[2020-11-21 11:44] LABS: Glucose, Whole Blood 176 mg/dL (60-115)
[2020-11-21] MEDS: Insulin Lispro 100 UNIT/ML 3 ML VIAL SUBCUT (11:49)
[2020-11-21 17:54] LABS: Glucose, Whole Blood 148 mg/dL (60-115)
[2020-11-21] MEDS: Divalproex Sodium ER 500 MG TAB.ER.24H 1000 MG PO (18:16)
[2020-11-21 19:30] VITALS: BP 125/56; PULSE 68; TEMP 36.7
[2020-11-21] MEDS: risperiDONE 1 MG TABLET 5 MG PO (22:17)
[2020-11-21 22:31] LABS: Glucose, Whole Blood 148 mg/dL (60-115)
--- NOTE | 2020-11-21 22:49 | P.PNPSI_ITS ---
Subjective Subjective Date of Service: 11/21/20 Reason For Visit: Schizoaffective Disorder acutely psychotic Interim History: patient sitting eating lunch; she has few words to say to write r. She says i'm not good.... and says she's sick of one of the nurses but seems to be joking. pt has left handed tremor. She denies AVH, SI and HI. She denies depression. Mental Status Exam Mental Status Exam Narrative: Patient Appearance: unkempt Patient Orientation: Person Level of Consciousness: Alert Patient Behavior: calm; indifferent Mood Description: blunted Affect Description: blunted Patient Cognition Impaired: Yes Ability to Follow Directions: Fair Speech Pattern: slowed Memory Description: Remote Impaired and Episodic Impaired Hallucinations: denies Delusions: Paranoid Ideation Thought Content: positive for [place]; denies SI and HI Depressive Symptoms: Increased Anxiety and Increased Irritability Judgement: Poor Diagnostics Vital Signs (24Hr): Vital Signs - 24 hr 11/21/20 07:20 11/21/20 09:08 Temperature 96.6 F L Pulse Rate 71 75 Respiratory Rate 20 Blood Pressure 128/61 134/70 Pulse Oximetry 98 Body Mass Index 34.1 Labs Results: 10/29/20 07:51 10/29/20 07:51 Labs: Laboratory Results - last 48 hr 11/20/20 11/20/20 11/21/20 06:10 11:48 06:49 POC Glucose 111 185 H 83 11/21/20 11/21/20 11/21/20 11:40 17:15 22:22 POC Glucose 176 H 148 H 148 H Medications Medications Current Medications Generic Name Dose Route Start Last Admin Trade Name Freq PRN Reason Stop Dose Admin Acetaminophen 650 mg 10/28/20 05:54 11/04/20 13:39 Acetaminophen 325 Mg Tablet PO 650 mg Q6H PRN Administration Headache/Pain Mild Scale (1-3) Al Hydroxide/Mg Hydroxide 30 ml 10/28/20 05:54 Magnesium Hydrox/Alum Hydrox 30 Ml Oral.Susp PO Q6H PRN Heartburn/Nausea Amlodipine Besylate 10 mg 10/28/20 09:00 11/21/20 09:08 Amlodipine Besylate 10 Mg Tablet PO 10 mg DAILY SONIA Administration Artificial Tears 2 drop 11/19/20 13:19 Artificial Tears 15 Ml Drops EYE-BOTH Q4H PRN Dry Eyes Aspirin 81 mg 10/28/20 09:00 11/21/20 09:08 Aspirin Enteric Coated 81 Mg Tablet.Dr PO 81 mg DAILY SONIA Administration Divalproex Sodium 1,000 mg 11/20/20 18:00 11/21/20 18:16 Divalproex Sodium Er 500 Mg Tab.Er.24h PO 1,000 mg DAILY@1800 SONIA Administration Hydroxyzine HCl 50 mg 11/02/20 10:45 11/20/20 00:12 Hydroxyzine Hcl 25 Mg Tablet PO 50 mg BEDTIME PRN Administration Insomnia Insulin Glargine 28 unit 10/31/20 09:00 11/21/20 09:14 Insulin Glargine,Hum.Rec.Anlog 100 Unit/Ml 10 Ml Vial SUBCUT 28 unit DAILY SONIA Administration Insulin Human Lispro 0 unit 10/28/20 21:00 11/21/20 22:23 Insulin Lispro 100 Unit/Ml 3 Ml Vial SUBCUT Not Given QIDACHS [facility] Protocol Levothyroxine Sodium 125 mcg 11/14/20 06:45 11/21/20 06:45 Levothyroxine Sodium 125 Mcg Tablet PO 125 mcg DAILY@0600 SONIA Administration [place] Carbonate 300 mg 10/31/20 09:00 11/21/20 09:08 [place] Carbonate 300 Mg Tablet PO 300 mg DAILY SONIA Administration Lorazepam 0.5 mg 11/18/20 12:00 11/21/20 18:17 Lorazepam 0.5 Mg Tablet PO 0.5 mg TID@0800,1200,1800 SONIA Administration Magnesium Hydroxide 30 ml 10/28/20 05:54 11/08/20 17:02 Milk Of Magnesia 30 Ml Oral.Susp PO 30 ml DAILY PRN Administration Constipation Metformin HCl 500 mg 11/18/20 17:00 11/21/20 18:16 Metformin Hcl 500 Mg Tablet PO 500 mg BIDWM SONIA Administration Metoprolol Succinate 50 mg 10/28/20 09:00 11/21/20 09:08 Metoprolol Succinate Er 50 Mg Tab.Er.24h PO 50 mg DAILY SONIA Administration Pioglitazone HCl 15 mg 10/28/20 09:00 11/21/20 09:08 Pioglitazone Hcl 15 Mg Tablet PO 15 mg DAILY SONIA Administration Risperidone 0.5 mg 11/18/20 07:35 Risperidone 0.5 Mg Tablet PO Q4H PRN Psychosis Risperidone 5 mg 11/20/20 21:00 11/21/20 22:17 Risperidone 1 Mg Tablet PO 5 mg BEDTIME SONIA Administration Trazodone HCl 100 mg 10/28/20 06:30 11/20/20 00:12 Trazodone Hcl 100 Mg Tablet PO 100 mg BEDTIME PRN Administration Insomnia Allergies Allergies Allergy/AdvReac Type Severity Reaction Status Date / Time haloperidol [From Haldol] AdvReac Unknown Verified 10/28/20 06:32 Assessment & Plan Assessment & Plan (1) Schizoaffective disorder without good prognostic features and with catatonia: Status: Acute Code(s): F25.9 - Schizoaffective disorder, unspecified; F06.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 (2) HTN (hypertension): Status: Acute Code(s): I10 - Essential (primary) hypertension Assessment and Plan: considered restarting low dose of sertraline but decided to hold off for now no changes to tx plan Hold sertraline for secondary depressive symptoms as pt experiencing significant agitation today. lower Ativan secondary to lethargy change more Risperdal to bedtime ect pending stafford order metformin restarted Monitor for increased agitation and irritability with sertraline at 100 mg Increase Risperdal 5 mg secondary to paranoia increase Depakote to a 1000 mg secondary to mood instability Greater than 50% of the session was spent on counseling and/or coordination of care Reason for contiued inpatient stay Substantial Risk for: med/psych decompensation
[2020-11-22] MEDS: Levothyroxine Sodium 125 MCG TABLET PO (06:14)
[2020-11-22 06:40] VITALS: BP 139/64; PULSE 69; RESP 18; TEMP 36.1; O2SAT 98
[2020-11-22 06:42] LABS: Glucose, Whole Blood 94 mg/dL (60-115)
[2020-11-22] MEDS: Metoprolol Succinate ER 50 MG TAB.ER.24H PO (08:42)
[2020-11-22] MEDS: LORazepam 0.5 MG TABLET PO ×2 (08:42→17:38)
[2020-11-22 08:43] VITALS: BP 141/65; PULSE 77
[2020-11-22] MEDS: metFORMIN HCl 500 MG TABLET PO ×2 (08:43→17:36)
[2020-11-22] MEDS: amLODIPine Besylate 10 MG TABLET PO (08:43)
[2020-11-22] MEDS: Aspirin Enteric Coated 81 MG TABLET.DR PO (08:43)
[2020-11-22] MEDS: Lithium Carbonate 300 MG TABLET PO (08:43)
[2020-11-22] MEDS: Insulin Glargine,Hum.rec.anlog 100 UNIT/ML 10 ML VIAL 28 UNIT SUBCUT (08:46)
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
[2020-11-22 11:47] LABS: Glucose, Whole Blood 174 mg/dL (60-115)
[2020-11-22 16:15] VITALS: BP 132/63; PULSE 66; TEMP 36.3
[2020-11-22 16:52] LABS: Glucose, Whole Blood 110 mg/dL (60-115)
[2020-11-22] MEDS: Divalproex Sodium ER 500 MG TAB.ER.24H 1000 MG PO (17:36)
[2020-11-22] MEDS: risperiDONE 1 MG TABLET 5 MG PO (20:10)
[2020-11-22 20:22] LABS: Glucose, Whole Blood 191 mg/dL (60-115)
[2020-11-22] MEDS: Insulin Lispro 100 UNIT/ML 3 ML VIAL SUBCUT (20:26)
[2020-11-23] MEDS: Acetaminophen 325 MG TABLET 650 MG PO (00:09)
[2020-11-23] MEDS: traZODone HCL 100 MG TABLET PO (00:09)
[2020-11-23] MEDS: Levothyroxine Sodium 125 MCG TABLET PO (06:31)
[2020-11-23 06:58] LABS: Glucose, Whole Blood 80 mg/dL (60-115)
[2020-11-23 07:13] VITALS: BP 142/66; PULSE 82; RESP 18; TEMP 36.4; O2SAT 98
[2020-11-23] MEDS: Insulin Glargine,Hum.rec.anlog 100 UNIT/ML 10 ML VIAL 28 UNIT SUBCUT (09:08)
[2020-11-23 09:32] VITALS: BP 120/74; PULSE 80
[2020-11-23] MEDS: Lithium Carbonate 300 MG TABLET PO (09:32)
[2020-11-23] MEDS: Aspirin Enteric Coated 81 MG TABLET.DR PO (09:32)
[2020-11-23] MEDS: Metoprolol Succinate ER 50 MG TAB.ER.24H PO (09:32)
[2020-11-23] MEDS: metFORMIN HCl 500 MG TABLET PO (09:34)
[2020-11-23] MEDS: LORazepam 0.5 MG TABLET PO ×3 (09:39→18:14)
[2020-11-23 09:40] VITALS: BP 120/74; PULSE 80
[2020-11-23] MEDS: amLODIPine Besylate 10 MG TABLET PO (09:40)
[2020-11-23 09:47] LABS: Creatinine Clr Calc Pharmacy 82.8; Estimated Glomerular Filt Rate > 60
[2020-11-23 11:55] LABS: Glucose, Whole Blood 174 mg/dL (60-115)
[2020-11-23 18:00] VITALS: RESP 16
[2020-11-23] MEDS: Divalproex Sodium ER 500 MG TAB.ER.24H 1000 MG PO (18:14)
--- NOTE | 2020-11-23 22:36 | P.PNPSI_ITS ---
Subjective Subjective Date of Service: 11/24/20 Reason For Visit: Schizoaffective Disorder acutely psychotic Subjective Notes: Conditional Voluntary Guardianship: Yes Medical Problems Affecting Mental Status: No Interim History: Pt more agitated reactive irritrable paranoid Medication Compliance: Intermittent Side effects from medications: No Attending Groups: Yes Mental Status Exam Mental Status Exam Narrative: Patient Appearance: unkempt Patient Orientation: Person Level of Consciousness: Alert Patient Behavior: calm Mood Description: anxiious irritable Affect Description: labile Patient Cognition Impaired: Yes Ability to Follow Directions: Fair Speech Pattern: slowed Memory Description: Remote Impaired and Episodic Impaired Hallucinations: denies Delusions: Paranoid Ideation Thought Content: positive for [place]; no SI and HI Depressive Symptoms: Increased Anxiety and Increased Irritability Judgement: Poor Diagnostics Vital Signs (24Hr): Vital Signs - 24 hr 11/23/20 07:13 11/23/20 09:32 11/23/20 09:40 Temperature 97.6 F Pulse Rate 82 80 80 Respiratory Rate 18 Blood Pressure 142/66 H 120/74 120/74 Pulse Oximetry 98 11/23/20 18:00 Temperature Pulse Rate Respiratory Rate 16 Blood Pressure Pulse Oximetry Body Mass Index 34.1 Labs Results: 10/29/20 07:51 11/23/20 08:26 Labs: Laboratory Results - last 48 hr 11/22/20 11/22/20 11/22/20 06:19 11:43 16:48 Creatinine Estim Creat Clear Calc Estimated GFR POC Glucose 94 174 H 110 11/22/20 11/23/20 11/23/20 20:18 06:37 08:26 Creatinine 0.71 Estim Creat Clear Calc 82.8 Estimated GFR > 60 POC Glucose 191 H 80 11/23/20 11:50 Creatinine Estim Creat Clear Calc Estimated GFR POC Glucose 174 H Medications Medications Current Medications Generic Name Dose Route Start Last Admin Trade Name Freq PRN Reason Stop Dose Admin Acetaminophen 650 mg 10/28/20 05:54 11/23/20 00:09 Acetaminophen 325 Mg Tablet PO 650 mg Q6H PRN Administration Headache/Pain Mild Scale (1-3) Al Hydroxide/Mg Hydroxide 30 ml 10/28/20 05:54 Magnesium Hydrox/Alum Hydrox 30 Ml Oral.Susp PO Q6H PRN Heartburn/Nausea Amlodipine Besylate 10 mg 10/28/20 09:00 11/23/20 09:40 Amlodipine Besylate 10 Mg Tablet PO 10 mg DAILY OSNIA Administration Artificial Tears 2 drop 11/19/20 13:19 Artificial Tears 15 Ml Drops EYE-BOTH Q4H PRN Dry Eyes Aspirin 81 mg 10/28/20 09:00 11/23/20 09:32 Aspirin Enteric Coated 81 Mg Tablet.Dr PO 81 mg DAILY SONIA Administration Divalproex Sodium 1,000 mg 11/20/20 18:00 11/23/20 18:14 Divalproex Sodium Er 500 Mg Tab.Er.24h PO 1,000 mg DAILY@1800 [facility] Administration Hydroxyzine HCl 50 mg 11/02/20 10:45 11/20/20 00:12 Hydroxyzine Hcl 25 Mg Tablet PO 50 mg BEDTIME PRN Administration Insomnia Insulin Glargine 28 unit 10/31/20 09:00 11/23/20 09:08 Insulin Glargine,Hum.Rec.Anlog 100 Unit/Ml 10 Ml Vial SUBCUT 28 unit DAILY SONIA Administration Insulin Human Lispro 0 unit 10/28/20 21:00 11/23/20 20:15 Insulin Lispro 100 Unit/Ml 3 Ml Vial SUBCUT Not Given QIDACHS [facility] Protocol Levothyroxine Sodium 125 mcg 11/14/20 06:45 11/23/20 06:31 Levothyroxine Sodium 125 Mcg Tablet PO 125 mcg DAILY@0600 SONIA Administration [place] Carbonate 300 mg 10/31/20 09:00 11/23/20 09:32 [place] Carbonate 300 Mg Tablet PO 300 mg DAILY SONIA Administration Lorazepam 0.5 mg 11/18/20 12:00 11/23/20 18:14 Lorazepam 0.5 Mg Tablet PO 0.5 mg TID@0800,1200,1800 [facility] Administration Magnesium Hydroxide 30 ml 10/28/20 05:54 11/08/20 17:02 Milk Of Magnesia 30 Ml Oral.Susp PO 30 ml DAILY PRN Administration Constipation Metformin HCl 500 mg 11/18/20 17:00 11/23/20 18:09 Metformin Hcl 500 Mg Tablet PO Not Given BIDWM [facility] Metoprolol Succinate 50 mg 10/28/20 09:00 11/23/20 09:32 Metoprolol Succinate Er 50 Mg Tab.Er.24h PO 50 mg DAILY SONIA Administration Pioglitazone HCl 15 mg 10/28/20 09:00 11/23/20 09:41 Pioglitazone Hcl 15 Mg Tablet PO 15 mg DAILY SONIA Administration Risperidone 0.5 mg 11/18/20 07:35 Risperidone 0.5 Mg Tablet PO Q4H PRN Psychosis Risperidone 5 mg 11/20/20 21:00 11/23/20 20:15 Risperidone 1 Mg Tablet PO Not Given BEDTIME SONIA Trazodone HCl 100 mg 10/28/20 06:30 11/23/20 00:09 Trazodone Hcl 100 Mg Tablet PO 100 mg BEDTIME PRN Administration Insomnia Allergies Allergies Allergy/AdvReac Type Severity Reaction Status Date / Time haloperidol [From Haldol] AdvReac Unknown Verified 10/28/20 06:32 Assessment & Plan Assessment & Plan (1) Schizoaffective disorder without good prognostic features and with catatonia: Status: Acute Code(s): F25.9 - Schizoaffective disorder, unspecified; F06.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 (2) HTN (hypertension): Status: Acute Code(s): I10 - Essential (primary) hypertension Assessment and Plan: Hold sertraline for secondary depressive symptoms as pt experiencing significant agitation today. lower Ativan secondary to lethargy change more Risperdal to bedtime ect pending stafford order metformin restarted Monitor for increased agitation and irritability with sertraline at 100 mg Increase Risperdal 5 mg secondary to paranoia increase Depakote to a 1000 mg secondary to mood instability Greater than 50% of the session was spent on counseling and/or coordination of care Reason for contiued inpatient stay Substantial Risk for: harm to others, inability to function, rapid decompensa tion and med/psych decompensation
[2020-11-24] MEDS: Levothyroxine Sodium 125 MCG TABLET PO (05:59)
[2020-11-24 06:26] LABS: Glucose, Whole Blood 154 mg/dL (60-115)
[2020-11-24 07:08] VITALS: BP 131/64; PULSE 77; RESP 18; TEMP 36.6; O2SAT 96
[2020-11-24 09:41] VITALS: BP 131/70; PULSE 77
[2020-11-24] MEDS: Metoprolol Succinate ER 50 MG TAB.ER.24H PO (09:41)
[2020-11-24] MEDS: LORazepam 0.5 MG TABLET PO ×2 (09:41→17:18)
[2020-11-24 09:42] VITALS: BP 131/70; PULSE 77
[2020-11-24] MEDS: amLODIPine Besylate 10 MG TABLET PO (09:42)
[2020-11-24] MEDS: Insulin Glargine,Hum.rec.anlog 100 UNIT/ML 10 ML VIAL 28 UNIT SUBCUT (09:43)
[2020-11-24] MEDS: Lithium Carbonate 300 MG TABLET PO ×2 (09:43→20:33)
[2020-11-24] MEDS: Aspirin Enteric Coated 81 MG TABLET.DR PO (09:43)
[2020-11-24] MEDS: metFORMIN HCl 500 MG TABLET PO ×2 (09:43→17:18)
[2020-11-24 12:02] LABS: Glucose, Whole Blood 159 mg/dL (60-115)
[2020-11-24 17:14] LABS: Glucose, Whole Blood 119 mg/dL (60-115)
[2020-11-24] MEDS: Divalproex Sodium ER 250 MG TAB.ER.24H 1250 MG PO (17:18)
[2020-11-24 17:36] VITALS: BP 139/76; PULSE 72; RESP 16; TEMP 36; O2SAT 97
[2020-11-24] MEDS: risperiDONE 1 MG TABLET 5 MG PO (20:33)
[2020-11-24 22:28] LABS: Glucose, Whole Blood 122 mg/dL (60-115)
--- NOTE | 2020-11-24 23:30 | P.PNPSI_ITS ---
Subjective Subjective Date of Service: 11/24/20 Reason For Visit: Schizoaffective Disorder acutely psychotic Subjective Notes: Conditional Voluntary Guardianship: Yes Interim History: patient has been more irritable agitated past number of days paranoid at times threatening and hostile intermittently refusing medication Medication Compliance: Yes Mental Status Exam Mental Status Exam Narrative: Patient Appearance: unkempt Patient Orientation: Person Level of Consciousness: Alert Patient Behavior: calm Mood Description: anxiious irritable Affect Description: labile Patient Cognition Impaired: Yes Ability to Follow Directions: Fair Speech Pattern: slowed Memory Description: Remote Impaired and Episodic Impaired Hallucinations: denies Delusions: Paranoid Ideation suspicious hostile Thought Content: positive for [place]; no SI and HI intermittently threatening Depressive Symptoms: Increased Anxiety and Increased Irritability Judgement: Poor Diagnostics Vital Signs (24Hr): Vital Signs - 24 hr 11/24/20 07:08 11/24/20 09:41 11/24/20 09:42 Temperature 97.8 F Pulse Rate 77 77 77 Respiratory Rate 18 Blood Pressure 131/64 131/70 131/70 Pulse Oximetry 96 11/24/20 17:36 Temperature 96.8 F Pulse Rate 72 Respiratory Rate 16 Blood Pressure 139/76 Pulse Oximetry 97 Body Mass Index 34.1 Labs Results: 10/29/20 07:51 11/23/20 08:26 Labs: Laboratory Results - last 48 hr 11/23/20 11/23/20 11/23/20 06:37 08:26 11:50 Creatinine 0.71 Estim Creat Clear Calc 82.8 Estimated GFR > 60 POC Glucose 80 174 H 11/24/20 11/24/20 11/24/20 06:15 11:48 17:10 Creatinine Estim Creat Clear Calc Estimated GFR POC Glucose 154 H 159 H 119 H 11/24/20 20:28 Creatinine Estim Creat Clear Calc Estimated GFR POC Glucose 122 H Medications Medications Current Medications Generic Name Dose Route Start Last Admin Trade Name Freq PRN Reason Stop Dose Admin Acetaminophen 650 mg 10/28/20 05:54 11/23/20 00:09 Acetaminophen 325 Mg Tablet PO 650 mg Q6H PRN Administration Headache/Pain Mild Scale (1-3) Al Hydroxide/Mg Hydroxide 30 ml 10/28/20 05:54 Magnesium Hydrox/Alum Hydrox 30 Ml Oral.Susp PO Q6H PRN Heartburn/Nausea Amlodipine Besylate 10 mg 10/28/20 09:00 11/24/20 09:42 Amlodipine Besylate 10 Mg Tablet PO 10 mg DAILY SONIA Administration Artificial Tears 2 drop 11/19/20 13:19 Artificial Tears 15 Ml Drops EYE-BOTH Q4H PRN Dry Eyes Aspirin 81 mg 10/28/20 09:00 11/24/20 09:43 Aspirin Enteric Coated 81 Mg Tablet.Dr PO 81 mg DAILY SONIA Administration Divalproex Sodium 1,250 mg 11/24/20 18:00 11/24/20 17:18 Divalproex Sodium Er 250 Mg Tab.Er.24h PO 1,250 mg DAILY@1800 SONIA Administration Hydroxyzine HCl 50 mg 11/02/20 10:45 11/20/20 00:12 Hydroxyzine Hcl 25 Mg Tablet PO 50 mg BEDTIME PRN Administration Insomnia Insulin Glargine 28 unit 10/31/20 09:00 11/24/20 09:43 Insulin Glargine,Hum.Rec.Anlog 100 Unit/Ml 10 Ml Vial SUBCUT 28 unit DAILY SONIA Administration Insulin Human Lispro 0 unit 10/28/20 21:00 11/24/20 20:47 Insulin Lispro 100 Unit/Ml 3 Ml Vial SUBCUT Not Given QIDACHS [facility] Protocol Levothyroxine Sodium 125 mcg 11/14/20 06:45 11/24/20 05:59 Levothyroxine Sodium 125 Mcg Tablet PO 125 mcg DAILY@0600 SONIA Administration [place] Carbonate 300 mg 11/24/20 21:00 11/24/20 20:33 [place] Carbonate 300 Mg Tablet PO 300 mg BID SONIA Administration Lorazepam 0.5 mg 11/18/20 12:00 11/24/20 17:18 Lorazepam 0.5 Mg Tablet PO 0.5 mg TID@0800,1200,1800 SONIA Administration Magnesium Hydroxide 30 ml 10/28/20 05:54 11/08/20 17:02 Milk Of Magnesia 30 Ml Oral.Susp PO 30 ml DAILY PRN Administration Constipation Metformin HCl 500 mg 11/18/20 17:00 11/24/20 17:18 Metformin Hcl 500 Mg Tablet PO 500 mg BIDWM SONIA Administration Metoprolol Succinate 50 mg 10/28/20 09:00 11/24/20 09:41 Metoprolol Succinate Er 50 Mg Tab.Er.24h PO 50 mg DAILY SONIA Administration Pioglitazone HCl 15 mg 10/28/20 09:00 11/24/20 09:43 Pioglitazone Hcl 15 Mg Tablet PO 15 mg DAILY SONIA Administration Risperidone 0.5 mg 11/18/20 07:35 Risperidone 0.5 Mg Tablet PO Q4H PRN Psychosis Risperidone 5 mg 11/20/20 21:00 11/24/20 20:33 Risperidone 1 Mg Tablet PO 5 mg BEDTIME SONIA Administration Trazodone HCl 100 mg 10/28/20 06:30 11/23/20 00:09 Trazodone Hcl 100 Mg Tablet PO 100 mg BEDTIME PRN Administration Insomnia Allergies Allergies Allergy/AdvReac Type Severity Reaction Status Date / Time haloperidol [From Haldol] AdvReac Unknown Verified 10/28/20 06:32 Assessment & Plan Assessment & Plan (1) Schizoaffective disorder without good prognostic features and with catatonia: Status: Acute Code(s): F25.9 - Schizoaffective disorder, unspecified; F06.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 (2) HTN (hypertension): Status: Acute Code(s): I10 - Essential (primary) hypertension Assessment and Plan: lithium and Depakote increased secondary to irritability agitation and paranoia Risperdal increased to 6 mg check lithium and Depakote level Greater than 50% of the session was spent on counseling and/or coordination of care Reason for contiued inpatient stay Substantial Risk for: harm to others, inability to function and rapid decompensation
[2020-11-25 06:06] LABS: Glucose, Whole Blood 116 mg/dL (60-115)
[2020-11-25 07:22] VITALS: BP 139/63; PULSE 74; RESP 20; TEMP 36.2; O2SAT 96
[2020-11-25] MEDS: metFORMIN HCl 500 MG TABLET PO ×2 (08:40→17:48)
[2020-11-25 08:47] VITALS: BP 132/62; PULSE 80
[2020-11-25] MEDS: amLODIPine Besylate 10 MG TABLET PO (08:47)
[2020-11-25] MEDS: Lithium Carbonate 300 MG TABLET PO ×2 (08:47→22:13)
[2020-11-25] MEDS: risperiDONE 0.5 MG TABLET PO (08:47)
[2020-11-25] MEDS: Levothyroxine Sodium 125 MCG TABLET PO (08:47)
[2020-11-25 08:48] VITALS: BP 132/62; PULSE 80
[2020-11-25] MEDS: Metoprolol Succinate ER 50 MG TAB.ER.24H PO (08:48)
[2020-11-25] MEDS: Aspirin Enteric Coated 81 MG TABLET.DR PO (08:48)
[2020-11-25] MEDS: Insulin Glargine,Hum.rec.anlog 100 UNIT/ML 10 ML VIAL 28 UNIT SUBCUT (08:49)
[2020-11-25] MEDS: LORazepam 0.5 MG TABLET PO ×2 (10:56→14:48)
[2020-11-25 11:31] LABS: Glucose, Whole Blood 202 mg/dL (60-115)
[2020-11-25] MEDS: Insulin Lispro 100 UNIT/ML 3 ML VIAL SUBCUT (12:36)
[2020-11-25 17:18] LABS: Glucose, Whole Blood 124 mg/dL (60-115)
[2020-11-25] MEDS: Divalproex Sodium ER 250 MG TAB.ER.24H 1250 MG PO (17:48)
[2020-11-25] MEDS: risperiDONE 1 MG TABLET 5 MG PO (22:12)
--- NOTE | 2020-11-25 23:20 | HO.PSYCHPN ---
Subjective Subjective Date of Service: 11/25/20 Reason For Visit: Schizoaffective Disorder acutely psychotic Subjective Notes: Conditional Voluntary Guardianship: Yes Interim History: The patient is irritable easily agitated resistant to care resistant to leaving her bed. Internally preoccupied and paranoid at times feeling people are talking about her. Often angry hostile and often withdrawn Medication Compliance: Intermittent Side effects from medications: No Attending Groups: No Mental Status Exam Mental Status Exam Narrative: Patient Appearance: unkempt Patient Orientation: Person Hospital Level of Consciousness: Alert Patient Behavior: irritable reactive Mood Description: anxiious irritable depressed Affect Description: labile Patient Cognition Impaired: Yes Ability to Follow Directions: Fair Speech Pattern: slowed Memory Description: Remote Impaired and Episodic Impaired Hallucinations: denies Delusions: Paranoid Ideation suspicious hostile Thought Content: positive for [place]; no SI and HI intermittently threatening Depressive Symptoms: Increased Anxiety and Increased Irritability Judgement: Poor Diagnostics Vital Signs (24Hr): Vital Signs - 24 hr 11/25/20 07:22 11/25/20 08:47 11/25/20 08:48 Temperature 97.1 F Pulse Rate 74 80 80 Respiratory Rate 20 Blood Pressure 139/63 132/62 132/62 Pulse Oximetry 96 Body Mass Index 34.1 Labs Results: 10/29/20 07:51 11/23/20 08:26 Labs: Laboratory Results - last 48 hr 11/24/20 11/24/20 11/24/20 06:15 11:48 17:10 POC Glucose 154 H 159 H 119 H 11/24/20 11/25/20 11/25/20 20:28 05:51 11:26 POC Glucose 122 H 116 H 202 H 11/25/20 17:14 POC Glucose 124 H Medications Medications Current Medications Generic Name Dose Route Start Last Admin Trade Name Freq PRN Reason Stop Dose Admin Acetaminophen 650 mg 10/28/20 05:54 11/23/20 00:09 Acetaminophen 325 Mg Tablet PO 650 mg Q6H PRN Administration Headache/Pain Mild Scale (1-3) Al Hydroxide/Mg Hydroxide 30 ml 10/28/20 05:54 Magnesium Hydrox/Alum Hydrox 30 Ml Oral.Susp PO Q6H PRN Heartburn/Nausea Amlodipine Besylate 10 mg 10/28/20 09:00 11/25/20 08:47 Amlodipine Besylate 10 Mg Tablet PO 10 mg DAILY SONIA Administration Artificial Tears 2 drop 11/19/20 13:19 Artificial Tears 15 Ml Drops EYE-BOTH Q4H PRN Dry Eyes Aspirin 81 mg 10/28/20 09:00 11/25/20 08:48 Aspirin Enteric Coated 81 Mg Tablet.Dr PO 81 mg DAILY SONIA Administration Divalproex Sodium 1,250 mg 11/24/20 18:00 11/25/20 17:48 Divalproex Sodium Er 250 Mg Tab.Er.24h PO 1,250 mg DAILY@1800 SONIA Administration Hydroxyzine HCl 50 mg 11/02/20 10:45 11/20/20 00:12 Hydroxyzine Hcl 25 Mg Tablet PO 50 mg BEDTIME PRN Administration Insomnia Insulin Glargine 28 unit 10/31/20 09:00 11/25/20 08:49 Insulin Glargine,Hum.Rec.Anlog 100 Unit/Ml 10 Ml Vial SUBCUT 28 unit DAILY SONIA Administration Insulin Human Lispro 0 unit 10/28/20 21:00 11/25/20 22:11 Insulin Lispro 100 Unit/Ml 3 Ml Vial SUBCUT Not Given [facility] Protocol Levothyroxine Sodium 125 mcg 11/14/20 06:45 11/25/20 08:47 Levothyroxine Sodium 125 Mcg Tablet PO 125 mcg DAILY@0600 SONIA Administration [place] Carbonate 300 mg 11/24/20 21:00 11/25/20 22:13 [place] Carbonate 300 Mg Tablet PO 300 mg BID SONIA Administration Magnesium Hydroxide 30 ml 10/28/20 05:54 11/08/20 17:02 Milk Of Magnesia 30 Ml Oral.Susp PO 30 ml DAILY PRN Administration Constipation Metformin HCl 500 mg 11/18/20 17:00 11/25/20 17:48 Metformin Hcl 500 Mg Tablet PO 500 mg BIDWM SONIA Administration Metoprolol Succinate 50 mg 10/28/20 09:00 11/25/20 08:48 Metoprolol Succinate Er 50 Mg Tab.Er.24h PO 50 mg DAILY SONIA Administration Pioglitazone HCl 15 mg 10/28/20 09:00 11/25/20 08:48 Pioglitazone Hcl 15 Mg Tablet PO 15 mg DAILY SONIA Administration Risperidone 0.5 mg 11/18/20 07:35 11/25/20 08:47 Risperidone 0.5 Mg Tablet PO 0.5 mg Q4H PRN Administration Psychosis Risperidone 5 mg 11/20/20 21:00 11/25/20 22:12 Risperidone 1 Mg Tablet PO 5 mg BEDTIME SONIA Administration Trazodone HCl 100 mg 10/28/20 06:30 11/23/20 00:09 Trazodone Hcl 100 Mg Tablet PO 100 mg BEDTIME PRN Administration Insomnia Allergies Allergies Allergy/AdvReac Type Severity Reaction Status Date / Time haloperidol [From Haldol] AdvReac Unknown Verified 10/28/20 06:32 Assessment & Plan Assessment & Plan (1) Schizoaffective disorder without good prognostic features and with catatonia: Status: Acute Code(s): F25.9 - Schizoaffective disorder, unspecified; F06.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 (2) HTN (hypertension): Status: Acute Code(s): I10 - Essential (primary) hypertension Assessment and Plan: lithium and Depakote increased secondary to irritability agitation and paranoia Risperdal increased to 6 mg check lithium and Depakote level if not effective will and olanzapine unclear if better on higher doses of lorazepam had initially been catatonic history of schizoaffective disorder Greater than 50% of the session was spent on counseling and/or coordination of care Reason for contiued inpatient stay Substantial Risk for: inability to function, rapid decompensation and med/psych decompensation
[2020-11-26] MEDS: risperiDONE 0.5 MG TABLET PO (00:07)
[2020-11-26] MEDS: traZODone HCL 100 MG TABLET PO (00:07)
[2020-11-26] MEDS: hydrOXYzine HCL 25 MG TABLET 50 MG PO (00:07)
[2020-11-26] MEDS: Insulin Glargine,Hum.rec.anlog 100 UNIT/ML 10 ML VIAL 28 UNIT SUBCUT (08:30)
[2020-11-26 08:36] VITALS: BP 129/60; PULSE 78
[2020-11-26] MEDS: metFORMIN HCl 500 MG TABLET PO ×2 (08:36→17:26)
[2020-11-26] MEDS: Metoprolol Succinate ER 50 MG TAB.ER.24H PO (08:36)
[2020-11-26] MEDS: Lithium Carbonate 300 MG TABLET PO ×2 (08:36→21:44)
[2020-11-26 08:37] VITALS: BP 129/60; PULSE 78
[2020-11-26] MEDS: Levothyroxine Sodium 125 MCG TABLET PO (08:37)
[2020-11-26] MEDS: Aspirin Enteric Coated 81 MG TABLET.DR PO (08:37)
[2020-11-26] MEDS: amLODIPine Besylate 10 MG TABLET PO (08:37)
[2020-11-26 08:52] LABS: Lithium 0.57 mmol/L (0.60-1.20)
[2020-11-26 08:59] LABS: Valproate 77.1 mcg/mL (50.0-100.0)
[2020-11-26] MEDS: LORazepam 1 MG TABLET PO ×2 (10:18→21:44)
[2020-11-26 12:30] LABS: Glucose, Whole Blood 134 mg/dL (60-115)
[2020-11-26 16:15] VITALS: BP 119/57; PULSE 75; TEMP 36.8
[2020-11-26 17:03] LABS: Glucose, Whole Blood 173 mg/dL (60-115)
[2020-11-26] MEDS: OLANZapine ODT 10 MG TAB.RAPDIS 5 MG TRANSLINGU (17:25)
[2020-11-26] MEDS: Divalproex Sodium ER 250 MG TAB.ER.24H 1250 MG PO (17:25)
[2020-11-26] MEDS: Insulin Lispro 100 UNIT/ML 3 ML VIAL SUBCUT ×2 (17:29→21:49)
[2020-11-26 21:31] LABS: Glucose, Whole Blood 160 mg/dL (60-115)
[2020-11-26] MEDS: risperiDONE 1 MG TABLET 5 MG PO (21:44)
--- NOTE | 2020-11-26 22:49 | P.PNPSI_ITS ---
Subjective Subjective Date of Service: 11/26/20 Reason For Visit: Schizoaffective Disorder acutely psychotic Subjective Notes: Conditional Voluntary Guardianship: Yes Interim History: Patient was given Ativan today became disinhibited. Later in the evening was more cooperative able to leave the room Medication Compliance: Intermittent Side effects from medications: Yes Diagnostics Vital Signs (24Hr): Vital Signs - 24 hr 11/26/20 08:36 11/26/20 08:37 Pulse Rate 78 78 Blood Pressure 129/60 129/60 Body Mass Index 34.1 Labs Results: 10/29/20 07:51 11/23/20 08:26 Labs: Laboratory Results - last 48 hr 11/25/20 11/25/20 11/25/20 05:51 11:26 17:14 POC Glucose 116 H 202 H 124 H Valproic Acid [place] 11/26/20 11/26/20 11/26/20 08:11 08:11 12:16 POC Glucose 134 H Valproic Acid 77.1 [place] 0.57 L 11/26/20 11/26/20 16:55 21:20 POC Glucose 173 H 160 H Valproic Acid [place] Medications Medications Current Medications Generic Name Dose Route Start Last Admin Trade Name Freq PRN Reason Stop Dose Admin Acetaminophen 650 mg 10/28/20 05:54 11/23/20 00:09 Acetaminophen 325 Mg Tablet PO 650 mg Q6H PRN Administration Headache/Pain Mild Scale (1-3) Al Hydroxide/Mg Hydroxide 30 ml 10/28/20 05:54 Magnesium Hydrox/Alum Hydrox 30 Ml Oral.Susp PO Q6H PRN Heartburn/Nausea Amlodipine Besylate 10 mg 10/28/20 09:00 11/26/20 08:37 Amlodipine Besylate 10 Mg Tablet PO 10 mg DAILY SONIA Administration Artificial Tears 2 drop 11/19/20 13:19 Artificial Tears 15 Ml Drops EYE-BOTH Q4H PRN Dry Eyes Aspirin 81 mg 10/28/20 09:00 11/26/20 08:37 Aspirin Enteric Coated 81 Mg Tablet.Dr PO 81 mg DAILY SONIA Administration Divalproex Sodium 1,250 mg 11/24/20 18:00 11/26/20 17:25 Divalproex Sodium Er 250 Mg Tab.Er.24h PO 1,250 mg DAILY@1800 SONIA Administration Hydroxyzine HCl 50 mg 11/02/20 10:45 11/26/20 00:07 Hydroxyzine Hcl 25 Mg Tablet PO 50 mg BEDTIME PRN Administration Insomnia Insulin Glargine 28 unit 10/31/20 09:00 11/26/20 08:30 Insulin Glargine,Hum.Rec.Anlog 100 Unit/Ml 10 Ml Vial SUBCUT 28 unit DAILY SONIA Administration Insulin Human Lispro 0 unit 10/28/20 21:00 11/26/20 21:49 Insulin Lispro 100 Unit/Ml 3 Ml Vial SUBCUT 2 unit QIDACHS SONIA Administration Protocol Levothyroxine Sodium 125 mcg 11/14/20 06:45 11/26/20 08:37 Levothyroxine Sodium 125 Mcg Tablet PO 125 mcg DAILY@0600 SONAI Administration [place] Carbonate 300 mg 11/24/20 21:00 11/26/20 21:44 [place] Carbonate 300 Mg Tablet PO 300 mg BID SONIA Administration Lorazepam 1 mg 11/26/20 10:15 11/26/20 21:44 Lorazepam 1 Mg Tablet PO 1 mg TID SONIA Administration Magnesium Hydroxide 30 ml 10/28/20 05:54 11/08/20 17:02 Milk Of Magnesia 30 Ml Oral.Susp PO 30 ml DAILY PRN Administration Constipation Metformin HCl 500 mg 11/18/20 17:00 11/26/20 17:26 Metformin Hcl 500 Mg Tablet PO 500 mg BIDWM SONIA Administration Metoprolol Succinate 50 mg 10/28/20 09:00 11/26/20 08:36 Metoprolol Succinate Er 50 Mg Tab.Er.24h PO 50 mg DAILY SONIA Administration Olanzapine 5 mg 11/26/20 14:43 11/26/20 17:25 Olanzapine Odt 10 Mg Tab.Rapdis TRANSLINGU 5 mg TID PRN Administration Psychosis Pioglitazone HCl 15 mg 10/28/20 09:00 11/26/20 08:37 Pioglitazone Hcl 15 Mg Tablet PO 15 mg DAILY SONIA Administration Risperidone 4 mg 11/27/20 21:00 Risperidone 2 Mg Tablet PO BEDTIME SONIA Risperidone 2 mg 11/27/20 09:00 Risperidone 2 Mg Tablet PO DAILY SONIA Trazodone HCl 100 mg 10/28/20 06:30 11/26/20 00:07 Trazodone Hcl 100 Mg Tablet PO 100 mg BEDTIME PRN Administration Insomnia Allergies Allergies Allergy/AdvReac Type Severity Reaction Status Date / Time haloperidol [From Haldol] AdvReac Unknown Verified 10/28/20 06:32 Assessment & Plan Assessment & Plan (1) Schizoaffective disorder without good prognostic features and with catatonia: Status: Acute Code(s): F25.9 - Schizoaffective disorder, unspecified; F06.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 (2) HTN (hypertension): Status: Acute Code(s): I10 - Essential (primary) hypertension Assessment and Plan: lithium and Depakote increased secondary to irritability agitation and paranoia Risperdal increased to 6 mg check lithium and Depakote level if not effective will and olanzapine unclear if better on higher doses of lorazepam had initially been catatonic history of schizoaffective disorder lithium level 0.57 Depakote level 77 change Risperdal to mg the morning 4 mg bedtime Greater than 50% of the session was spent on counseling and/or coordination of care Reason for contiued inpatient stay Substantial Risk for: inability to function, rapid decompensation and med/psych decompensation
[2020-11-27 07:09] LABS: Glucose, Whole Blood 69 mg/dL (60-115)
[2020-11-27] MEDS: Aspirin Enteric Coated 81 MG TABLET.DR PO (08:43)
[2020-11-27] MEDS: metFORMIN HCl 500 MG TABLET PO ×2 (08:43→17:07)
[2020-11-27] MEDS: Lithium Carbonate 300 MG TABLET PO ×2 (08:43→21:46)
[2020-11-27] MEDS: risperiDONE 2 MG TABLET PO (08:43)
[2020-11-27] MEDS: Levothyroxine Sodium 125 MCG TABLET PO (08:44)
[2020-11-27] MEDS: Insulin Glargine,Hum.rec.anlog 100 UNIT/ML 10 ML VIAL 28 UNIT SUBCUT (08:44)
[2020-11-27] MEDS: LORazepam 1 MG TABLET PO ×3 (08:44→21:45)
[2020-11-27 16:51] LABS: Glucose, Whole Blood 92 mg/dL (60-115)
[2020-11-27] MEDS: Divalproex Sodium ER 250 MG TAB.ER.24H 1250 MG PO (17:07)
[2020-11-27 17:40] VITALS: BP 135/64; PULSE 85; RESP 16; TEMP 36.2; O2SAT 98
--- NOTE | 2020-11-27 19:14 | HO.PSYCHPN ---
Subjective Subjective Date of Service: 12/01/20 Reason For Visit: Schizoaffective Disorder acutely psychotic Subjective Notes: Conditional Voluntary Interim History: Patient anxious ruminating erratic unstable intermittent paranoia Medication Compliance: Intermittent Mental Status Exam Mental Status Exam Patient Appearance: Disheveled Patient Orientation: Person Level of Consciousness: Awake Patient Behavior: Guarded, Talkative, Suspicious, Aggressive, Belligerent, Anxious, Fearful, Avoidant, Fatigued, Distractible, Isolative and Good Eye Contact Mood Description: Labile and Angry Affect Description: Labile Patient Cognition Impaired: Yes Ability to Follow Directions: Fair Speech Pattern: Spontaneous Speech, Rambling, Inappropriate and Poor Articulation Memory Description: Remote Impaired Hallucinations: Auditory Delusions: Paranoid Ideation Perceptual Disturbances: Depersonalization Thought Process: Illogical, Distracted, Rumination and Confusion Thought Content: positive for Flight of Ideas, positive for Racing, positive for Perseveration, positive for Preoccupation, positive for Disorganized and positive for Homicidal Ideation Depressive Symptoms: Increased Irritability, Isolating-Friends/Family, Unhappiness, Loss of Energy and Difficulty Concentrating Abnormal Motor Activity Signs and Symptoms: Agitation Judgement: Poor Diagnostics Vital Signs (24Hr): Vital Signs - 24 hr 11/27/20 17:40 Temperature 97.2 F Pulse Rate 85 Respiratory Rate 16 Blood Pressure 135/64 Pulse Oximetry 98 Body Mass Index 34.1 Labs Results: 10/29/20 07:51 12/01/20 14:29 Labs: Laboratory Results - last 48 hr 11/26/20 11/26/20 11/26/20 08:11 08:11 12:16 POC Glucose 134 H Valproic Acid 77.1 [place] 0.57 L 11/26/20 11/26/20 11/27/20 16:55 21:20 07:00 POC Glucose 173 H 160 H 69 Valproic Acid [place] 11/27/20 16:30 POC Glucose 92 Valproic Acid [place] Medications Medications Current Medications Generic Name Dose Route Start Last Admin Trade Name Freq PRN Reason Stop Dose Admin Acetaminophen 650 mg 10/28/20 05:54 11/23/20 00:09 Acetaminophen 325 Mg Tablet PO 650 mg Q6H PRN Administration Headache/Pain Mild Scale (1-3) Al Hydroxide/Mg Hydroxide 30 ml 10/28/20 05:54 Magnesium Hydrox/Alum Hydrox 30 Ml Oral.Susp PO Q6H PRN Heartburn/Nausea Amlodipine Besylate 10 mg 10/28/20 09:00 11/27/20 08:44 Amlodipine Besylate 10 Mg Tablet PO Not Given DAILY [facility] Artificial Tears 2 drop 11/19/20 13:19 Artificial Tears 15 Ml Drops EYE-BOTH Q4H PRN Dry Eyes Aspirin 81 mg 10/28/20 09:00 11/27/20 08:43 Aspirin Enteric Coated 81 Mg Tablet.Dr PO 81 mg DAILY SONIA Administration Divalproex Sodium 1,250 mg 11/24/20 18:00 11/27/20 17:07 Divalproex Sodium Er 250 Mg Tab.Er.24h PO 1,250 mg DAILY@1800 [facility] Administration Hydroxyzine HCl 50 mg 11/02/20 10:45 11/26/20 00:07 Hydroxyzine Hcl 25 Mg Tablet PO 50 mg BEDTIME PRN Administration Insomnia Insulin Glargine 28 unit 10/31/20 09:00 11/27/20 08:44 Insulin Glargine,Hum.Rec.Anlog 100 Unit/Ml 10 Ml Vial SUBCUT 28 unit DAILY SONIA Administration Insulin Human Lispro 0 unit 10/28/20 21:00 11/27/20 17:04 Insulin Lispro 100 Unit/Ml 3 Ml Vial SUBCUT Not Given QIDACHS [facility] Protocol Levothyroxine Sodium 125 mcg 11/14/20 06:45 11/27/20 08:44 Levothyroxine Sodium 125 Mcg Tablet PO 125 mcg DAILY@0600 SONIA Administration [place] Carbonate 300 mg 11/24/20 21:00 11/27/20 08:43 [place] Carbonate 300 Mg Tablet PO 300 mg BID SONIA Administration Lorazepam 1 mg 11/26/20 10:15 11/27/20 15:01 Lorazepam 1 Mg Tablet PO 1 mg TID SONIA Administration Magnesium Hydroxide 30 ml 10/28/20 05:54 11/08/20 17:02 Milk Of Magnesia 30 Ml Oral.Susp PO 30 ml DAILY PRN Administration Constipation Metformin HCl 500 mg 11/18/20 17:00 11/27/20 17:07 Metformin Hcl 500 Mg Tablet PO 500 mg BIDWM SONIA Administration Metoprolol Succinate 50 mg 10/28/20 09:00 11/27/20 08:45 Metoprolol Succinate Er 50 Mg Tab.Er.24h PO Not Given DAILY [facility] Olanzapine 5 mg 11/26/20 14:43 11/26/20 17:25 Olanzapine Odt 10 Mg Tab.Rapdis TRANSLINGU 5 mg TID PRN Administration Psychosis Pioglitazone HCl 15 mg 10/28/20 09:00 11/27/20 08:43 Pioglitazone Hcl 15 Mg Tablet PO 15 mg DAILY SONIA Administration Risperidone 4 mg 11/27/20 21:00 Risperidone 2 Mg Tablet PO BEDTIME SONIA Risperidone 2 mg 11/27/20 09:00 11/27/20 08:43 Risperidone 2 Mg Tablet PO 2 mg DAILY SONIA Administration Trazodone HCl 100 mg 10/28/20 06:30 11/26/20 00:07 Trazodone Hcl 100 Mg Tablet PO 100 mg BEDTIME PRN Administration Insomnia Allergies Allergies Allergy/AdvReac Type Severity Reaction Status Date / Time haloperidol [From Haldol] AdvReac Unknown Verified 10/28/20 06:32 Assessment & Plan Assessment & Plan (1) Schizoaffective disorder without good prognostic features and with catatonia: Status: Acute Code(s): F25.9 - Schizoaffective disorder, unspecified; F06.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 (2) HTN (hypertension): Status: Acute Code(s): I10 - Essential (primary) hypertension Assessment and Plan: lithium and Depakote increased secondary to irritability agitation and paranoia Risperdal increased to 6 mg check lithium and Depakote level if not effective will and olanzapine unclear if better on higher doses of lorazepam had initially been catatonic history of schizoaffective disorder lithium level 0.57 Depakote level 77 change Risperdal to mg the morning 4 mg bedtime Greater than 50% of the session was spent on counseling and/or coordination of care Reason for contiued inpatient stay Substantial Risk for: inability to function, rapid decompensation and med/psych decompensation
[2020-11-27] MEDS: risperiDONE 2 MG TABLET 4 MG PO (21:47)
[2020-11-27 22:10] LABS: Glucose, Whole Blood 139 mg/dL (60-115)
[2020-11-28 08:08] LABS: Glucose, Whole Blood 72 mg/dL (60-115)
[2020-11-28 08:11] VITALS: BP 146/87; PULSE 90
[2020-11-28] MEDS: Metoprolol Succinate ER 50 MG TAB.ER.24H PO (08:11)
[2020-11-28] MEDS: Aspirin Enteric Coated 81 MG TABLET.DR PO (08:11)
[2020-11-28] MEDS: risperiDONE 2 MG TABLET PO (08:11)
[2020-11-28] MEDS: LORazepam 1 MG TABLET PO ×3 (08:11→21:24)
[2020-11-28] MEDS: Lithium Carbonate 300 MG TABLET PO ×2 (08:11→21:25)
[2020-11-28] MEDS: metFORMIN HCl 500 MG TABLET PO ×2 (08:11→17:15)
[2020-11-28] MEDS: amLODIPine Besylate 10 MG TABLET PO (08:11)
[2020-11-28] MEDS: Levothyroxine Sodium 125 MCG TABLET PO (08:12)
[2020-11-28] MEDS: Insulin Glargine,Hum.rec.anlog 100 UNIT/ML 10 ML VIAL 28 UNIT SUBCUT (08:12)
[2020-11-28 08:47] VITALS: BP 146/87; PULSE 90; RESP 16
--- NOTE | 2020-11-28 10:06 | P.PNPSI_ITS ---
Subjective Subjective Date of Service: 11/28/20 Reason For Visit: Schizoaffective Disorder acutely psychotic Subjective Notes: Conditional Voluntary Guardianship: Yes Medical Problems Affecting Mental Status: No Interim History: lying in bed, sheet over most of her head- on 1:1 - Medication Compliance: Intermittent Side effects from medications: Yes (EPS- parkinson tremor) Attending Groups: No Review of Systems Review of Systems denies medication s/e but clearly has EPS Mental Status Exam Mental Status Exam Patient Appearance: Unkempt Patient Orientation: Person and Place Level of Consciousness: Awake Patient Behavior: Passive Mood Description: Flat Affect Description: Flat Ability to Follow Directions: Poor Speech Pattern: Impoverished Memory Description: Normal for Patient Hallucinations: None Thought Process: Goal Oriented Thought Content: positive for [place] and positive for Poverty of Content Depressive Symptoms: Sleeping More Than Usual Abnormal Motor Activity Signs and Symptoms: Psychomotor Retardation and Tremors Judgement: Poor Diagnostics Vital Signs (24Hr): Vital Signs - 24 hr 11/27/20 17:40 11/28/20 08:11 11/28/20 08:47 Temperature 97.2 F Pulse Rate 85 90 90 Respiratory Rate 16 16 Blood Pressure 135/64 146/87 H 146/87 H Pulse Oximetry 98 Body Mass Index 34.1 Labs Results: 10/29/20 07:51 11/23/20 08:26 Labs: Laboratory Results - last 48 hr 11/26/20 11/26/20 11/26/20 12:16 16:55 21:20 POC Glucose 134 H 173 H 160 H 11/27/20 11/27/20 11/27/20 07:00 16:30 21:42 POC Glucose 69 92 139 H 11/28/20 08:01 POC Glucose 72 Medications Medications Current Medications Generic Name Dose Route Start Last Admin Trade Name Freq PRN Reason Stop Dose Admin Acetaminophen 650 mg 10/28/20 05:54 11/23/20 00:09 Acetaminophen 325 Mg Tablet PO 650 mg Q6H PRN Administration Headache/Pain Mild Scale (1-3) Al Hydroxide/Mg Hydroxide 30 ml 10/28/20 05:54 Magnesium Hydrox/Alum Hydrox 30 Ml Oral.Susp PO Q6H PRN Heartburn/Nausea Amlodipine Besylate 10 mg 10/28/20 09:00 11/28/20 08:11 Amlodipine Besylate 10 Mg Tablet PO 10 mg DAILY SONIA Administration Artificial Tears 2 drop 11/19/20 13:19 Artificial Tears 15 Ml Drops EYE-BOTH Q4H PRN Dry Eyes Aspirin 81 mg 10/28/20 09:00 11/28/20 08:11 Aspirin Enteric Coated 81 Mg Tablet.Dr PO 81 mg DAILY SONIA Administration Divalproex Sodium 1,250 mg 11/24/20 18:00 11/27/20 17:07 Divalproex Sodium Er 250 Mg Tab.Er.24h PO 1,250 mg DAILY@1800 SONIA Administration Hydroxyzine HCl 50 mg 11/02/20 10:45 11/26/20 00:07 Hydroxyzine Hcl 25 Mg Tablet PO 50 mg BEDTIME PRN Administration Insomnia Insulin Glargine 28 unit 10/31/20 09:00 11/28/20 08:12 Insulin Glargine,Hum.Rec.Anlog 100 Unit/Ml 10 Ml Vial SUBCUT 28 unit DAILY SONIA Administration Insulin Human Lispro 0 unit 10/28/20 21:00 11/28/20 08:13 Insulin Lispro 100 Unit/Ml 3 Ml Vial SUBCUT Not Given [facility] Protocol Levothyroxine Sodium 125 mcg 11/14/20 06:45 11/28/20 08:12 Levothyroxine Sodium 125 Mcg Tablet PO 125 mcg DAILY@0600 SONIA Administration [place] Carbonate 300 mg 11/24/20 21:00 11/28/20 08:11 [place] Carbonate 300 Mg Tablet PO 300 mg BID SONIA Administration Lorazepam 1 mg 11/26/20 10:15 11/28/20 08:11 Lorazepam 1 Mg Tablet PO 1 mg TID SONIA Administration Magnesium Hydroxide 30 ml 10/28/20 05:54 11/08/20 17:02 Milk Of Magnesia 30 Ml Oral.Susp PO 30 ml DAILY PRN Administration Constipation Metformin HCl 500 mg 11/18/20 17:00 11/28/20 08:11 Metformin Hcl 500 Mg Tablet PO 500 mg BIDWM SONIA Administration Metoprolol Succinate 50 mg 10/28/20 09:00 11/28/20 08:11 Metoprolol Succinate Er 50 Mg Tab.Er.24h PO 50 mg DAILY SONIA Administration Olanzapine 5 mg 11/26/20 14:43 11/26/20 17:25 Olanzapine Odt 10 Mg Tab.Rapdis TRANSLINGU 5 mg TID PRN Administration Psychosis Pioglitazone HCl 15 mg 10/28/20 09:00 11/28/20 08:11 Pioglitazone Hcl 15 Mg Tablet PO 15 mg DAILY SONIA Administration Risperidone 4 mg 11/27/20 21:00 11/27/20 21:47 Risperidone 2 Mg Tablet PO 4 mg BEDTIME SONIA Administration Risperidone 2 mg 11/27/20 09:00 11/28/20 08:11 Risperidone 2 Mg Tablet PO 2 mg DAILY SONIA Administration Trazodone HCl 100 mg 10/28/20 06:30 11/26/20 00:07 Trazodone Hcl 100 Mg Tablet PO 100 mg BEDTIME PRN Administration Insomnia Allergies Allergies Allergy/AdvReac Type Severity Reaction Status Date / Time haloperidol [From Haldol] AdvReac Unknown Verified 10/28/20 06:32 Assessment & Plan Assessment & Plan (1) Schizoaffective disorder without good prognostic features and with catatonia: Status: Acute Code(s): F25.9 - Schizoaffective disorder, unspecified; F06.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
[2020-11-28] MEDS: Insulin Lispro 100 UNIT/ML 3 ML VIAL SUBCUT ×2 (12:17→21:24)
[2020-11-28 12:22] LABS: Glucose, Whole Blood 166 mg/dL (60-115)
[2020-11-28 13:00] VITALS: BP 133/83; PULSE 80; RESP 16; TEMP 36.5; O2SAT 97
[2020-11-28 17:10] LABS: Glucose, Whole Blood 132 mg/dL (60-115)
[2020-11-28 18:00] VITALS: BP 117/58; RESP 16; TEMP 36.6; O2SAT 97
[2020-11-28] MEDS: OLANZapine ODT 10 MG TAB.RAPDIS 5 MG TRANSLINGU (18:31)
[2020-11-28] MEDS: Divalproex Sodium ER 250 MG TAB.ER.24H 1250 MG PO (20:04)
[2020-11-28] MEDS: risperiDONE 2 MG TABLET 4 MG PO (21:25)
[2020-11-29 00:01] LABS: Glucose, Whole Blood 187 mg/dL (60-115)
[2020-11-29 00:01] LABS: Glucose, Whole Blood 199 mg/dL (60-115)
[2020-11-29] MEDS: Levothyroxine Sodium 125 MCG TABLET PO (07:01)
[2020-11-29 07:25] VITALS: BP 159/74; PULSE 74; RESP 18; TEMP 36.5; O2SAT 96
[2020-11-29 08:01] LABS: Glucose, Whole Blood 103 mg/dL (60-115)
[2020-11-29 08:01] LABS: Glucose, Whole Blood 81 mg/dL (60-115)
[2020-11-29 08:05] VITALS: BP 178/76; PULSE 75
[2020-11-29] MEDS: metFORMIN HCl 500 MG TABLET PO ×2 (08:05→17:12)
[2020-11-29] MEDS: Aspirin Enteric Coated 81 MG TABLET.DR PO (08:05)
[2020-11-29] MEDS: amLODIPine Besylate 10 MG TABLET PO (08:05)
[2020-11-29 08:06] VITALS: BP 178/76; PULSE 75
[2020-11-29] MEDS: Metoprolol Succinate ER 50 MG TAB.ER.24H PO (08:06)
[2020-11-29] MEDS: Lithium Carbonate 300 MG TABLET PO ×2 (08:06→20:29)
[2020-11-29] MEDS: risperiDONE 2 MG TABLET PO ×2 (08:07→20:32)
[2020-11-29] MEDS: Insulin Glargine,Hum.rec.anlog 100 UNIT/ML 10 ML VIAL 28 UNIT SUBCUT (08:30)
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
[2020-11-29 12:18] LABS: Glucose, Whole Blood 138 mg/dL (60-115)
[2020-11-29] MEDS: OLANZapine ODT 10 MG TAB.RAPDIS 5 MG TRANSLINGU (12:25)
[2020-11-29] MEDS: LORazepam 0.5 MG TABLET PO ×2 (16:17→20:29)
[2020-11-29 16:24] VITALS: BP 118/65; PULSE 77; RESP 16; TEMP 36.6; O2SAT 97
[2020-11-29] MEDS: Divalproex Sodium ER 250 MG TAB.ER.24H 1250 MG PO (17:12)
[2020-11-29 18:11] LABS: Glucose, Whole Blood 134 mg/dL (60-115)
[2020-11-29] MEDS: OLANZapine 5 MG TABLET PO (20:29)
[2020-11-29 20:43] LABS: Glucose, Whole Blood 187 mg/dL (60-115)
[2020-11-29] MEDS: Insulin Lispro 100 UNIT/ML 3 ML VIAL SUBCUT (20:45)
[2020-11-30] MEDS: traZODone HCL 100 MG TABLET PO (00:38)
[2020-11-30 08:45] LABS: Glucose, Whole Blood 115 mg/dL (60-115)
[2020-11-30] MEDS: Aspirin Enteric Coated 81 MG TABLET.DR PO (08:51)
[2020-11-30 08:52] VITALS: BP 128/61; PULSE 71
[2020-11-30] MEDS: amLODIPine Besylate 10 MG TABLET PO (08:52)
[2020-11-30] MEDS: metFORMIN HCl 500 MG TABLET PO ×2 (08:52→17:09)
[2020-11-30] MEDS: LORazepam 0.5 MG TABLET PO ×3 (08:52→21:34)
[2020-11-30] MEDS: Levothyroxine Sodium 125 MCG TABLET PO (08:53)
[2020-11-30] MEDS: risperiDONE 2 MG TABLET PO ×2 (08:53→21:34)
[2020-11-30] MEDS: Lithium Carbonate 300 MG TABLET PO ×2 (08:53→21:33)
[2020-11-30] MEDS: Insulin Glargine,Hum.rec.anlog 100 UNIT/ML 10 ML VIAL 28 UNIT SUBCUT (08:53)
[2020-11-30 08:54] VITALS: BP 128/61; PULSE 71
[2020-11-30] MEDS: Metoprolol Succinate ER 50 MG TAB.ER.24H PO (08:54)
[2020-11-30 12:15] LABS: Glucose, Whole Blood 142 mg/dL (60-115)
--- NOTE | 2020-11-30 13:26 | P.PNPSI_ITS ---
Subjective Subjective Date of Service: 11/30/20 Reason For Visit: Schizoaffective Disorder acutely psychotic Subjective Notes: Conditional Voluntary Healthcare Proxy: No Guardianship: No Medical Problems Affecting Mental Status: No Interim History: Pt appeared calm, no acute distress, interacting with her team. Met with pt @1400. She was in bed, on one to one special. Patricia Toure RN was pt 's manager operations and procurement. Pt was awake alert, verbally aggressive. Told pt I was covering for Dr. Hernandez, pt stated I was not familiar to her and announced she planned to kill people, including her mother. Team reports possible disinhibition from Lorazepam and beginning trial of Olanzapine which she is tolerating and experienced some a.m. sedation from today. Medication Compliance: Yes Side effects from medications: No Attending Groups: No Review of Systems Reports behavioral changes Psychiatric: Reports behavioral changes, Reports change in appetite, Reports depression, Reports difficulty concentrating, Reports hopelessness, Reports irritability, Reports anhedonia, Reports paranoia and Reports homicidal ideation Mental Status Exam Mental Status Exam Patient Appearance: Disheveled Patient Orientation: Person Level of Consciousness: Awake Patient Behavior: Guarded, Talkative, Suspicious, Aggressive, Belligerent, Anxious, Fearful, Avoidant, Fatigued, Distractible, Isolative and Good Eye Contact Mood Description: Labile and Angry Affect Description: Labile Patient Cognition Impaired: Yes Ability to Follow Directions: Fair Speech Pattern: Spontaneous Speech, Rambling, Inappropriate and Poor Articulation Memory Description: Remote Impaired Hallucinations: Auditory Delusions: Paranoid Ideation Perceptual Disturbances: Depersonalization Thought Process: Illogical, Distracted, Rumination and Confusion Thought Content: positive for Flight of Ideas, positive for Racing, positive for Perseveration, positive for Preoccupation, positive for Disorganized and positive for Homicidal Ideation Depressive Symptoms: Increased Irritability, Isolating-Friends/Family, Unhappiness, Loss of Energy and Difficulty Concentrating Abnormal Motor Activity Signs and Symptoms: Agitation Judgement: Poor Diagnostics Vital Signs (24Hr): Vital Signs - 24 hr 11/29/20 16:24 11/30/20 08:52 11/30/20 08:54 Temperature 97.8 F Pulse Rate 77 71 71 Respiratory Rate 16 Blood Pressure 118/65 128/61 128/61 Pulse Oximetry 97 Body Mass Index 34.1 Labs Results: 10/29/20 07:51 11/23/20 08:26 Labs: Laboratory Results - last 48 hr 11/28/20 11/28/20 11/28/20 16:33 19:58 21:18 POC Glucose 132 H 199 H 187 H 11/29/20 11/29/20 11/29/20 06:15 07:54 12:14 POC Glucose 81 103 138 H 11/29/20 11/29/20 11/30/20 16:48 20:39 08:41 POC Glucose 134 H 187 H 115 11/30/20 12:10 POC Glucose 142 H Medications Medications Current Medications Generic Name Dose Route Start Last Admin Trade Name Freq PRN Reason Stop Dose Admin Acetaminophen 650 mg 10/28/20 05:54 11/23/20 00:09 Acetaminophen 325 Mg Tablet PO 650 mg Q6H PRN Administration Headache/Pain Mild Scale (1-3) Al Hydroxide/Mg Hydroxide 30 ml 10/28/20 05:54 Magnesium Hydrox/Alum Hydrox 30 Ml Oral.Susp PO Q6H PRN Heartburn/Nausea Amlodipine Besylate 10 mg 10/28/20 09:00 11/30/20 08:52 Amlodipine Besylate 10 Mg Tablet PO 10 mg DAILY [facility] Administration Artificial Tears 2 drop 11/19/20 13:19 Artificial Tears 15 Ml Drops EYE-BOTH Q4H PRN Dry Eyes Aspirin 81 mg 10/28/20 09:00 11/30/20 08:51 Aspirin Enteric Coated 81 Mg Tablet.Dr PO 81 mg DAILY [facility] Administration Divalproex Sodium 1,250 mg 11/24/20 18:00 11/29/20 17:12 Divalproex Sodium Er 250 Mg Tab.Er.24h PO 1,250 mg DAILY@1800 [facility] Administration Hydroxyzine HCl 50 mg 11/02/20 10:45 11/26/20 00:07 Hydroxyzine Hcl 25 Mg Tablet PO 50 mg BEDTIME PRN Administration Insomnia Insulin Glargine 28 unit 10/31/20 09:00 11/30/20 08:53 Insulin Glargine,Hum.Rec.Anlog 100 Unit/Ml 10 Ml Vial SUBCUT 28 unit DAILY [facility] Administration Insulin Human Lispro 0 unit 10/28/20 21:00 11/30/20 08:51 Insulin Lispro 100 Unit/Ml 3 Ml Vial SUBCUT Not Given QIDACHS [facility] Protocol Levothyroxine Sodium 125 mcg 11/14/20 06:45 11/30/20 08:53 Levothyroxine Sodium 125 Mcg Tablet PO 125 mcg DAILY@0600 [facility] Administration [place] Carbonate 300 mg 11/24/20 21:00 11/30/20 08:53 [place] Carbonate 300 Mg Tablet PO 300 mg BID [facility] Administration Lorazepam 0.5 mg 11/29/20 15:00 11/30/20 08:52 Lorazepam 0.5 Mg Tablet PO 0.5 mg TID [facility] Administration Magnesium Hydroxide 30 ml 10/28/20 05:54 11/08/20 17:02 Milk Of Magnesia 30 Ml Oral.Susp PO 30 ml DAILY PRN Administration Constipation Metformin HCl 500 mg 11/18/20 17:00 11/30/20 08:52 Metformin Hcl 500 Mg Tablet PO 500 mg BIDWM [facility] Administration Metoprolol Succinate 50 mg 10/28/20 09:00 11/30/20 08:54 Metoprolol Succinate Er 50 Mg Tab.Er.24h PO 50 mg DAILY [facility] Administration Olanzapine 5 mg 11/26/20 14:43 11/29/20 12:25 Olanzapine Odt 10 Mg Tab.Rapdis TRANSLINGU 5 mg TID PRN Administration Psychosis Olanzapine 5 mg 11/29/20 21:00 11/29/20 20:29 Olanzapine 5 Mg Tablet PO 5 mg BEDTIME [facility] Administration Pioglitazone HCl 15 mg 10/28/20 09:00 11/30/20 08:52 Pioglitazone Hcl 15 Mg Tablet PO 15 mg DAILY [facility] Administration Risperidone 2 mg 11/27/20 09:00 11/30/20 08:53 Risperidone 2 Mg Tablet PO 2 mg DAILY [facility] Administration Risperidone 2 mg 11/29/20 21:00 11/29/20 20:32 Risperidone 2 Mg Tablet PO 2 mg BEDTIME [facility] Administration Trazodone HCl 100 mg 10/28/20 06:30 11/30/20 00:38 Trazodone Hcl 100 Mg Tablet PO 100 mg BEDTIME PRN Administration Insomnia Allergies Allergies Allergy/AdvReac Type Severity Reaction Status Date / Time haloperidol [From Haldol] AdvReac Unknown Verified 10/28/20 06:32 Assessment & Plan Assessment & Plan (1) Schizoaffective disorder without good prognostic features and with catatonia: Status: Acute Code(s): F25.9 - Schizoaffective disorder, unspecified; F06.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 (2) HTN (hypertension): Status: Acute Code(s): I10 - Essential (primary) hypertension Assessment and Plan: 11/30/20: Continue the plan listed below.... cycing from withdrawn to agitated decrease ativan 0.5mg tid from 1 tid due to risk of disinhibition dec pm risperidone - put in 5mg olanzapine she did well on yesterday also maybe less eps? than risperidone Greater than 50% of the session was spent on counseling and/or coordination of care Informed Consent: does not understand Reason for contiued inpatient stay Substantial Risk for: harm to self, harm to others, inability to function and r apid decompensation
[2020-11-30 16:46] LABS: Glucose, Whole Blood 123 mg/dL (60-115)
[2020-11-30] MEDS: Divalproex Sodium ER 250 MG TAB.ER.24H 1250 MG PO (17:09)
[2020-11-30 18:00] VITALS: BP 135/65; PULSE 74; RESP 16; TEMP 36.7; O2SAT 98
[2020-11-30] MEDS: OLANZapine 5 MG TABLET PO (21:34)
[2020-11-30] MEDS: Insulin Lispro 100 UNIT/ML 3 ML VIAL SUBCUT (21:44)
[2020-11-30 22:15] LABS: Glucose, Whole Blood 165 mg/dL (60-115)
[2020-12-01 06:28] LABS: Glucose, Whole Blood 80 mg/dL (60-115)
[2020-12-01] MEDS: Levothyroxine Sodium 125 MCG TABLET PO (06:40)
[2020-12-01 07:23] VITALS: BP 124/67; PULSE 66; RESP 16; TEMP 36.6; O2SAT 98
[2020-12-01 08:29] VITALS: BP 133/68; PULSE 66
[2020-12-01] MEDS: Metoprolol Succinate ER 50 MG TAB.ER.24H PO (08:29)
[2020-12-01] MEDS: metFORMIN HCl 500 MG TABLET PO ×2 (08:29→17:35)
[2020-12-01 08:30] VITALS: BP 133/68; PULSE 66
[2020-12-01] MEDS: LORazepam 0.5 MG TABLET PO ×3 (08:30→21:23)
[2020-12-01] MEDS: amLODIPine Besylate 10 MG TABLET PO (08:30)
[2020-12-01] MEDS: Aspirin Enteric Coated 81 MG TABLET.DR PO (08:30)
[2020-12-01] MEDS: risperiDONE 2 MG TABLET PO ×2 (08:31→21:23)
[2020-12-01] MEDS: Lithium Carbonate 300 MG TABLET PO ×2 (08:31→21:22)
[2020-12-01] MEDS: Insulin Glargine,Hum.rec.anlog 100 UNIT/ML 10 ML VIAL 28 UNIT SUBCUT (08:37)
[2020-12-01 09:00] VITALS: BP 133/68; PULSE 66
[2020-12-01 12:40] LABS: Glucose, Whole Blood 164 mg/dL (60-115)
[2020-12-01] MEDS: Insulin Lispro 100 UNIT/ML 3 ML VIAL SUBCUT ×2 (12:47→21:23)
[2020-12-01 15:06] LABS: Anion Gap 11 (12-20); Blood Urea Nitrogen 11 mg/dL (9-16); Calcium 9.4 mg/dL (8.4-10.2); Carbon Dioxide 27 mmol/L (22-29); Chloride 107 mmol/L (96-108); Creatinine Clr Calc Pharmacy 85.2; Estimated Glomerular Filt Rate > 60; Glucose Random 131 mg/dL (60-115); Potassium 4.4 mmol/L (3.3-5.1); Sodium 141 mmol/L (135-145)
[2020-12-01 17:15] VITALS: BP 133/68; PULSE 80; TEMP 36.7
[2020-12-01 17:33] LABS: Glucose, Whole Blood 133 mg/dL (60-115)
[2020-12-01] MEDS: Divalproex Sodium ER 250 MG TAB.ER.24H 1250 MG PO (17:35)
[2020-12-01] MEDS: OLANZapine 5 MG TABLET PO (21:23)
[2020-12-01 21:34] LABS: Glucose, Whole Blood 162 mg/dL (60-115)
[2020-12-02 06:20] LABS: Glucose, Whole Blood 69 mg/dL (60-115)
[2020-12-02] MEDS: Levothyroxine Sodium 125 MCG TABLET PO (08:36)
[2020-12-02] MEDS: metFORMIN HCl 500 MG TABLET PO ×2 (08:36→17:46)
[2020-12-02 08:37] VITALS: BP 131/74; PULSE 71
[2020-12-02] MEDS: Aspirin Enteric Coated 81 MG TABLET.DR PO (08:37)
[2020-12-02] MEDS: LORazepam 0.5 MG TABLET PO ×3 (08:37→21:04)
[2020-12-02] MEDS: Lithium Carbonate 300 MG TABLET PO ×2 (08:37→21:04)
[2020-12-02] MEDS: amLODIPine Besylate 10 MG TABLET PO (08:37)
[2020-12-02] MEDS: Metoprolol Succinate ER 50 MG TAB.ER.24H PO (08:37)
[2020-12-02] MEDS: risperiDONE 2 MG TABLET PO ×2 (08:37→21:05)
[2020-12-02] MEDS: Insulin Glargine,Hum.rec.anlog 100 UNIT/ML 10 ML VIAL 28 UNIT SUBCUT (08:41)
[2020-12-02 12:26] LABS: Glucose, Whole Blood 120 mg/dL (60-115)
[2020-12-02 16:51] VITALS: RESP 18; TEMP 36.4; O2SAT 95
[2020-12-02] MEDS: Divalproex Sodium ER 250 MG TAB.ER.24H 1250 MG PO (17:46)
[2020-12-02] MEDS: Insulin Lispro 100 UNIT/ML 3 ML VIAL SUBCUT (17:55)
[2020-12-02 17:57] LABS: Glucose, Whole Blood 158 mg/dL (60-115)
[2020-12-02] MEDS: Acetaminophen 325 MG TABLET 650 MG PO (19:40)
[2020-12-02 20:48] LABS: Glucose, Whole Blood 144 mg/dL (60-115)
[2020-12-02] MEDS: OLANZapine 5 MG TABLET PO (21:05)
--- NOTE | 2020-12-02 21:29 | HO.PSYCHPN ---
Subjective Subjective Date of Service: 12/02/20 Reason For Visit: Schizoaffective Disorder acutely psychotic Subjective Notes: Conditional Voluntary Guardianship: Yes Interim History: Patient was more verbal they stated their mood was improved they knew there were in a hospital could not explain Has spent a lot of time in bed but awake and alert has had paranoid thoughts thinking people are trying to harm her in the hospital some time out of bed denies active suicidal thoughts Medication Compliance: Intermittent Mental Status Exam Mental Status Exam Patient Appearance: Disheveled Patient Orientation: Person Level of Consciousness: Awake Patient Behavior: Guarded, Talkative, Suspicious, Aggressive, Belligerent, Anxious, Fearful, Avoidant, Fatigued, Distractible, Isolative and Good Eye Contact Mood Description: Labile and Angry Affect Description: Labile Patient Cognition Impaired: Yes Ability to Follow Directions: Fair Speech Pattern: Spontaneous Speech, Rambling, Inappropriate and Poor Articulation Memory Description: Remote Impaired Hallucinations: Auditory Delusions: Paranoid Ideation Perceptual Disturbances: Depersonalization Thought Process: Illogical, Distracted, Rumination and Confusion Thought Content: positive for Flight of Ideas, positive for Racing, positive for Perseveration, positive for Preoccupation, positive for Disorganized and positive for Homicidal Ideation Depressive Symptoms: Increased Irritability, Isolating-Friends/Family, Unhappiness, Loss of Energy and Difficulty Concentrating Abnormal Motor Activity Signs and Symptoms: Agitation Judgement: Poor Diagnostics Vital Signs (24Hr): Vital Signs - 24 hr 12/02/20 08:37 12/02/20 16:51 Temperature 97.5 F Pulse Rate 71 Respiratory Rate 18 Blood Pressure 131/74 Pulse Oximetry 95 Body Mass Index 34.1 Labs Results: 10/29/20 07:51 12/01/20 14:29 Labs: Laboratory Results - last 48 hr 11/30/20 12/01/20 12/01/20 21:40 06:08 12:35 Sodium Potassium Chloride Carbon Dioxide Anion Gap BUN Creatinine Estim Creat Clear Calc Estimated GFR POC Glucose 165 H 80 164 H Random Glucose Calcium 12/01/20 12/01/20 12/01/20 14:29 17:07 21:16 Sodium 141 Potassium 4.4 Chloride 107 Carbon Dioxide 27 Anion Gap 11 L BUN 11 Creatinine 0.69 Estim Creat Clear Calc 85.2 Estimated GFR > 60 POC Glucose 133 H 162 H Random Glucose 131 H Calcium 9.4 12/02/20 12/02/20 12/02/20 06:08 12:21 17:53 Sodium Potassium Chloride Carbon Dioxide Anion Gap BUN Creatinine Estim Creat Clear Calc Estimated GFR POC Glucose 69 120 H 158 H Random Glucose Calcium 12/02/20 20:45 Sodium Potassium Chloride Carbon Dioxide Anion Gap BUN Creatinine Estim Creat Clear Calc Estimated GFR POC Glucose 144 H Random Glucose Calcium Medications Medications Current Medications Generic Name Dose Route Start Last Admin Trade Name Freq PRN Reason Stop Dose Admin Acetaminophen 650 mg 10/28/20 05:54 12/02/20 19:40 Acetaminophen 325 Mg Tablet PO 650 mg Q6H PRN Administration Headache/Pain Mild Scale (1-3) Al Hydroxide/Mg Hydroxide 30 ml 10/28/20 05:54 Magnesium Hydrox/Alum Hydrox 30 Ml Oral.Susp PO Q6H PRN Heartburn/Nausea Amlodipine Besylate 10 mg 10/28/20 09:00 12/02/20 08:37 Amlodipine Besylate 10 Mg Tablet PO 10 mg DAILY [facility] Administration Artificial Tears 2 drop 11/19/20 13:19 Artificial Tears 15 Ml Drops EYE-BOTH Q4H PRN Dry Eyes Aspirin 81 mg 10/28/20 09:00 12/02/20 08:37 Aspirin Enteric Coated 81 Mg Tablet. PO 81 mg DAILY [facility] Administration Divalproex Sodium 1,250 mg 11/24/20 18:00 12/02/20 17:46 Divalproex Sodium Er 250 Mg Tab.Er.24h PO 1,250 mg DAILY@1800 [facility] Administration Hydroxyzine HCl 50 mg 11/02/20 10:45 11/26/20 00:07 Hydroxyzine Hcl 25 Mg Tablet PO 50 mg BEDTIME PRN Administration Insomnia Insulin Glargine 28 unit 10/31/20 09:00 12/02/20 08:41 Insulin Glargine,Hum.Rec.Anlog 100 Unit/Ml 10 Ml Vial SUBCUT 28 unit DAILY [facility] Administration Insulin Human Lispro 0 unit 10/28/20 21:00 12/02/20 21:06 Insulin Lispro 100 Unit/Ml 3 Ml Vial SUBCUT Not Given QIDACHS [facility] Protocol Levothyroxine Sodium 125 mcg 11/14/20 06:45 12/02/20 08:36 Levothyroxine Sodium 125 Mcg Tablet PO 125 mcg DAILY@0600 [facility] Administration [place] Carbonate 300 mg 11/24/20 21:00 12/02/20 21:04 [place] Carbonate 300 Mg Tablet PO 300 mg BID [facility] Administration Lorazepam 0.5 mg 11/29/20 15:00 12/02/20 21:04 Lorazepam 0.5 Mg Tablet PO 0.5 mg TID [facility] Administration Magnesium Hydroxide 30 ml 10/28/20 05:54 11/08/20 17:02 Milk Of Magnesia 30 Ml Oral.Susp PO 30 ml DAILY PRN Administration Constipation Metformin HCl 500 mg 11/18/20 17:00 12/02/20 17:46 Metformin Hcl 500 Mg Tablet PO 500 mg BIDWM [facility] Administration Metoprolol Succinate 50 mg 10/28/20 09:00 12/02/20 08:37 Metoprolol Succinate Er 50 Mg Tab.Er.24h PO 50 mg DAILY [facility] Administration Olanzapine 5 mg 11/26/20 14:43 11/29/20 12:25 Olanzapine Odt 10 Mg Tab.Rapdis TRANSLINGU 5 mg TID PRN Administration Psychosis Olanzapine 5 mg 11/29/20 21:00 12/02/20 21:05 Olanzapine 5 Mg Tablet PO 5 mg BEDTIME [facility] Administration Pioglitazone HCl 15 mg 10/28/20 09:00 12/02/20 08:37 Pioglitazone Hcl 15 Mg Tablet PO 15 mg DAILY [facility] Administration Risperidone 2 mg 11/27/20 09:00 12/02/20 08:37 Risperidone 2 Mg Tablet PO 2 mg DAILY [facility] Administration Risperidone 2 mg 11/29/20 21:00 12/02/20 21:05 Risperidone 2 Mg Tablet PO 2 mg BEDTIME [facility] Administration Trazodone HCl 100 mg 10/28/20 06:30 11/30/20 00:38 Trazodone Hcl 100 Mg Tablet PO 100 mg BEDTIME PRN Administration Insomnia Allergies Allergies Allergy/AdvReac Type Severity Reaction Status Date / Time haloperidol [From Haldol] AdvReac Unknown Verified 10/28/20 06:32 Assessment & Plan Assessment & Plan (1) Schizoaffective disorder without good prognostic features and with catatonia: Status: Acute Code(s): F25.9 - Schizoaffective disorder, unspecified; F06.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 (2) HTN (hypertension): Status: Acute Code(s): I10 - Essential (primary) hypertension Assessment and Plan: lithium and Depakote increased secondary to irritability agitation and paranoia Risperdal increased to 6 mg check lithium and Depakote level if not effective will and olanzapine unclear if better on higher doses of lorazepam had initially been catatonic history of schizoaffective disorder lithium level 0.57 Depakote level 77 change Risperdal to mg the morning 4 mg bedtime Probate filed to be changed probate [place] Greater than 50% of the session was spent on counseling and/or coordination of care Reason for contiued inpatient stay Substantial Risk for: inability to function and rapid decompensation
[2020-12-03] MEDS: traZODone HCL 100 MG TABLET PO (01:00)
[2020-12-03 06:23] LABS: Glucose, Whole Blood 65 mg/dL (60-115)
[2020-12-03 06:30] VITALS: BP 132/68; PULSE 82; RESP 18; TEMP 36.8; O2SAT 96
[2020-12-03 08:45] VITALS: BP 142/76; PULSE 87
[2020-12-03] MEDS: Metoprolol Succinate ER 50 MG TAB.ER.24H PO (08:45)
[2020-12-03] MEDS: amLODIPine Besylate 10 MG TABLET PO (08:45)
[2020-12-03] MEDS: Levothyroxine Sodium 125 MCG TABLET PO ×2 (08:46→08:47)
[2020-12-03] MEDS: Lithium Carbonate 300 MG TABLET PO ×2 (08:46→20:50)
[2020-12-03] MEDS: LORazepam 0.5 MG TABLET PO ×3 (08:47→20:50)
[2020-12-03] MEDS: metFORMIN HCl 500 MG TABLET PO ×2 (08:47→17:24)
[2020-12-03] MEDS: Aspirin Enteric Coated 81 MG TABLET.DR PO (08:47)
[2020-12-03] MEDS: risperiDONE 2 MG TABLET PO ×2 (08:48→20:51)
[2020-12-03] MEDS: Insulin Glargine,Hum.rec.anlog 100 UNIT/ML 10 ML VIAL 28 UNIT SUBCUT (08:48)
[2020-12-03 09:27] VITALS: BMI 34.6
[2020-12-03 12:10] LABS: Glucose, Whole Blood 97 mg/dL (60-115)
[2020-12-03 16:33] LABS: Glucose, Whole Blood 80 mg/dL (60-115)
[2020-12-03 16:49] VITALS: BP 115/55; PULSE 66; RESP 16; TEMP 36.6; O2SAT 95
[2020-12-03] MEDS: Divalproex Sodium ER 250 MG TAB.ER.24H 1250 MG PO (17:24)
[2020-12-03] MEDS: OLANZapine 5 MG TABLET PO (20:50)
[2020-12-03 21:20] LABS: Glucose, Whole Blood 132 mg/dL (60-115)
--- NOTE | 2020-12-03 22:16 | HO.PSYCHPN ---
Subjective Subjective Date of Service: 12/03/20 Reason For Visit: Schizoaffective Disorder acutely psychotic Subjective Notes: Conditional Voluntary Guardianship: Yes Interim History: Patient remains withdrawn periods of irritability and depression but has been more cooperative out of bed more. Isolation paranoia have continued. Mental Status Exam Mental Status Exam Patient Appearance: Disheveled Patient Orientation: Person Level of Consciousness: Awake Patient Behavior: Guarded, Talkative, Suspicious, Aggressive, Belligerent, Anxious, Fearful, Avoidant, Fatigued, Distractible, Isolative and Good Eye Contact Mood Description: Labile and Angry Affect Description: Labile Patient Cognition Impaired: Yes Ability to Follow Directions: Fair Speech Pattern: Spontaneous Speech, Rambling, Inappropriate and Poor Articulation Memory Description: Remote Impaired Hallucinations: Auditory Delusions: Paranoid Ideation Perceptual Disturbances: Depersonalization Thought Process: Illogical, Distracted, Rumination and Confusion Thought Content: positive for Flight of Ideas, positive for Racing, positive for Perseveration, positive for Preoccupation, positive for Disorganized and positive for Homicidal Ideation Depressive Symptoms: Increased Irritability, Isolating-Friends/Family, Unhappiness, Loss of Energy and Difficulty Concentrating Abnormal Motor Activity Signs and Symptoms: Agitation Judgement: Poor Diagnostics Vital Signs (24Hr): Vital Signs - 24 hr 12/03/20 06:30 12/03/20 08:45 12/03/20 16:49 Temperature 98.2 F 97.9 F Pulse Rate 82 87 66 Respiratory Rate 18 16 Blood Pressure 132/68 142/76 H 115/55 L Pulse Oximetry 96 95 Body Mass Index 34.6 Labs Results: 10/29/20 07:51 12/01/20 14:29 Labs: Laboratory Results - last 48 hr 12/02/20 12/02/20 12/02/20 06:08 12:21 17:53 POC Glucose 69 120 H 158 H 12/02/20 12/03/20 12/03/20 20:45 06:03 11:48 POC Glucose 144 H 65 97 12/03/20 12/03/20 16:29 20:43 POC Glucose 80 132 H Medications Medications Current Medications Generic Name Dose Route Start Last Admin Trade Name Freq PRN Reason Stop Dose Admin Acetaminophen 650 mg 10/28/20 05:54 12/02/20 19:40 Acetaminophen 325 Mg Tablet PO 650 mg Q6H PRN Administration Headache/Pain Mild Scale (1-3) Al Hydroxide/Mg Hydroxide 30 ml 10/28/20 05:54 Magnesium Hydrox/Alum Hydrox 30 Ml Oral.Susp PO Q6H PRN Heartburn/Nausea Amlodipine Besylate 10 mg 10/28/20 09:00 12/03/20 08:45 Amlodipine Besylate 10 Mg Tablet PO 10 mg DAILY [facility] Administration Artificial Tears 2 drop 11/19/20 13:19 Artificial Tears 15 Ml Drops EYE-BOTH Q4H PRN Dry Eyes Aspirin 81 mg 10/28/20 09:00 12/03/20 08:47 Aspirin Enteric Coated 81 Mg Tablet.Dr PO 81 mg DAILY [facility] Administration Divalproex Sodium 1,250 mg 11/24/20 18:00 12/03/20 17:24 Divalproex Sodium Er 250 Mg Tab.Er.24h PO 1,250 mg DAILY@1800 [facility] Administration Hydroxyzine HCl 50 mg 11/02/20 10:45 11/26/20 00:07 Hydroxyzine Hcl 25 Mg Tablet PO 50 mg BEDTIME PRN Administration Insomnia Insulin Glargine 28 unit 10/31/20 09:00 12/03/20 08:48 Insulin Glargine,Hum.Rec.Anlog 100 Unit/Ml 10 Ml Vial SUBCUT 28 unit DAILY [facility] Administration Insulin Human Lispro 0 unit 10/28/20 21:00 12/03/20 20:54 Insulin Lispro 100 Unit/Ml 3 Ml Vial SUBCUT Not Given QIDACHS [facility] Protocol Levothyroxine Sodium 125 mcg 11/14/20 06:45 12/03/20 08:47 Levothyroxine Sodium 125 Mcg Tablet PO 125 mcg DAILY@0600 [facility] Administration [place] Carbonate 300 mg 11/24/20 21:00 12/03/20 20:50 [place] Carbonate 300 Mg Tablet PO 300 mg BID [facility] Administration Lorazepam 0.5 mg 11/29/20 15:00 12/03/20 20:50 Lorazepam 0.5 Mg Tablet PO 0.5 mg TID [facility] Administration Magnesium Hydroxide 30 ml 10/28/20 05:54 11/08/20 17:02 Milk Of Magnesia 30 Ml Oral.Susp PO 30 ml DAILY PRN Administration Constipation Metformin HCl 500 mg 11/18/20 17:00 12/03/20 17:24 Metformin Hcl 500 Mg Tablet PO 500 mg BIDWM [facility] Administration Metoprolol Succinate 50 mg 10/28/20 09:00 12/03/20 08:45 Metoprolol Succinate Er 50 Mg Tab.Er.24h PO 50 mg DAILY [facility] Administration Olanzapine 5 mg 11/26/20 14:43 11/29/20 12:25 Olanzapine Odt 10 Mg Tab.Rapdis TRANSLINGU 5 mg TID PRN Administration Psychosis Olanzapine 5 mg 11/29/20 21:00 12/03/20 20:50 Olanzapine 5 Mg Tablet PO 5 mg BEDTIME [facility] Administration Pioglitazone HCl 15 mg 10/28/20 09:00 12/03/20 08:48 Pioglitazone Hcl 15 Mg Tablet PO 15 mg DAILY [facility] Administration Risperidone 2 mg 11/27/20 09:00 12/03/20 08:48 Risperidone 2 Mg Tablet PO 2 mg DAILY [facility] Administration Risperidone 2 mg 11/29/20 21:00 12/03/20 20:51 Risperidone 2 Mg Tablet PO 2 mg BEDTIME [facility] Administration Trazodone HCl 100 mg 10/28/20 06:30 12/03/20 01:00 Trazodone Hcl 100 Mg Tablet PO 100 mg BEDTIME PRN Administration Insomnia Allergies Allergies Allergy/AdvReac Type Severity Reaction Status Date / Time haloperidol [From Haldol] AdvReac Unknown Verified 10/28/20 06:32 Assessment & Plan Assessment & Plan (1) Schizoaffective disorder without good prognostic features and with catatonia: Status: Acute Code(s): F25.9 - Schizoaffective disorder, unspecified; F06.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 (2) HTN (hypertension): Status: Acute Code(s): I10 - Essential (primary) hypertension Assessment and Plan: olanzapine 5 hs inc lithium Greater than 50% of the session was spent on counseling and/or coordination of care Reason for contiued inpatient stay Substantial Risk for: inability to function and rapid decompensation
[2020-12-04 06:30] LABS: Glucose, Whole Blood 75 mg/dL (60-115)
[2020-12-04 07:04] VITALS: BP 134/69; PULSE 72; RESP 18; TEMP 36.2; O2SAT 98
[2020-12-04 08:51] VITALS: BP 140/67; PULSE 75
[2020-12-04] MEDS: Metoprolol Succinate ER 50 MG TAB.ER.24H PO (08:51)
[2020-12-04] MEDS: Aspirin Enteric Coated 81 MG TABLET.DR PO (08:51)
[2020-12-04] MEDS: metFORMIN HCl 500 MG TABLET PO ×2 (08:51→17:11)
[2020-12-04] MEDS: Lithium Carbonate 300 MG TABLET 450 MG PO ×2 (08:52→21:04)
[2020-12-04] MEDS: amLODIPine Besylate 10 MG TABLET PO (08:52)
[2020-12-04] MEDS: Insulin Glargine,Hum.rec.anlog 100 UNIT/ML 10 ML VIAL 28 UNIT SUBCUT (08:52)
[2020-12-04] MEDS: LORazepam 0.5 MG TABLET PO ×2 (08:52→14:55)
[2020-12-04] MEDS: risperiDONE 2 MG TABLET PO ×2 (08:52→21:06)
[2020-12-04] MEDS: Levothyroxine Sodium 125 MCG TABLET PO (08:52)
[2020-12-04] MEDS: Insulin Lispro 100 UNIT/ML 3 ML VIAL SUBCUT ×2 (12:32→21:06)
[2020-12-04 12:42] LABS: Glucose, Whole Blood 172 mg/dL (60-115)
[2020-12-04 16:00] VITALS: BP 130/60; PULSE 87; TEMP 36.7
[2020-12-04 17:02] LABS: Glucose, Whole Blood 136 mg/dL (60-115)
[2020-12-04] MEDS: Divalproex Sodium ER 250 MG TAB.ER.24H 1250 MG PO (17:11)
[2020-12-04 21:01] LABS: Glucose, Whole Blood 154 mg/dL (60-115)
[2020-12-04] MEDS: OLANZapine 10 MG TABLET PO (21:04)
--- NOTE | 2020-12-04 21:42 | HO.PSYCHPN ---
Subjective Subjective Date of Service: 12/04/20 Reason For Visit: Schizoaffective Disorder acutely psychotic Subjective Notes: Conditional Voluntary Guardianship: Yes Interim History: Patient was come cooperative when seen. Mood she states was stable good. She was able to be taken off one-to-one gait seems steady denied any self-harming thoughts was seen by family today was more social Mental Status Exam Mental Status Exam Patient Appearance: Disheveled Patient Orientation: Person Level of Consciousness: Awake Patient Behavior: Guarded, Talkative, Suspicious, Anxious, Avoidant, Fatigued, Distractible, Isolative and Good Eye Contact Mood Description: Labile and Angry Affect Description: Labile Patient Cognition Impaired: Yes Ability to Follow Directions: Fair Speech Pattern: Spontaneous Speech, Rambling, Inappropriate and Poor Articulation Memory Description: Remote Impaired Hallucinations: Auditory Delusions: Paranoid Ideation Perceptual Disturbances: Depersonalization Thought Process: Distracted, Rumination and Confusion Thought Content: positive for Poverty of Content, positive for Preoccupation, positive for Disorganized, negative for Suicidal Ideation and negative for Homicidal Ideation Depressive Symptoms: Increased Irritability, Isolating-Friends/Family, Unhappiness, Loss of Energy and Difficulty Concentrating Abnormal Motor Activity Signs and Symptoms: Agitation Judgement: Poor Diagnostics Vital Signs (24Hr): Vital Signs - 24 hr 12/04/20 07:04 12/04/20 08:51 Temperature 97.2 F Pulse Rate 72 75 Respiratory Rate 18 Blood Pressure 134/69 140/67 H Pulse Oximetry 98 Body Mass Index 34.6 Labs Results: 10/29/20 07:51 12/01/20 14:29 Labs: Laboratory Results - last 48 hr 12/03/20 12/03/20 12/03/20 06:03 11:48 16:29 POC Glucose 65 97 80 12/03/20 12/04/20 12/04/20 20:43 06:25 12:17 POC Glucose 132 H 75 172 H 12/04/20 12/04/20 16:57 20:56 POC Glucose 136 H 154 H Medications Medications Current Medications Generic Name Dose Route Start Last Admin Trade Name Freq PRN Reason Stop Dose Admin Acetaminophen 650 mg 10/28/20 05:54 12/02/20 19:40 Acetaminophen 325 Mg Tablet PO 650 mg Q6H PRN Administration Headache/Pain Mild Scale (1-3) Al Hydroxide/Mg Hydroxide 30 ml 10/28/20 05:54 Magnesium Hydrox/Alum Hydrox 30 Ml Oral.Susp PO Q6H PRN Heartburn/Nausea Amlodipine Besylate 10 mg 10/28/20 09:00 12/04/20 08:52 Amlodipine Besylate 10 Mg Tablet PO 10 mg DAILY SONIA Administration Artificial Tears 2 drop 11/19/20 13:19 Artificial Tears 15 Ml Drops EYE-BOTH Q4H PRN Dry Eyes Aspirin 81 mg 10/28/20 09:00 12/04/20 08:51 Aspirin Enteric Coated 81 Mg Tablet.Dr PO 81 mg DAILY SONIA Administration Divalproex Sodium 1,250 mg 11/24/20 18:00 12/04/20 17:11 Divalproex Sodium Er 250 Mg Tab.Er.24h PO 1,250 mg DAILY@1800 SONIA Administration Hydroxyzine HCl 50 mg 11/02/20 10:45 11/26/20 00:07 Hydroxyzine Hcl 25 Mg Tablet PO 50 mg BEDTIME PRN Administration Insomnia Insulin Glargine 28 unit 10/31/20 09:00 12/04/20 08:52 Insulin Glargine,Hum.Rec.Anlog 100 Unit/Ml 10 Ml Vial SUBCUT 28 unit DAILY SONIA Administration Insulin Human Lispro 0 unit 10/28/20 21:00 12/04/20 21:06 Insulin Lispro 100 Unit/Ml 3 Ml Vial SUBCUT 2 unit QIDACHS SONIA Administration Protocol Levothyroxine Sodium 125 mcg 11/14/20 06:45 12/04/20 08:52 Levothyroxine Sodium 125 Mcg Tablet PO 125 mcg DAILY@0600 SONIA Administration [place] Carbonate 450 mg 12/04/20 09:00 12/04/20 21:04 [place] Carbonate 300 Mg Tablet PO 450 mg BID SONIA Administration Magnesium Hydroxide 30 ml 10/28/20 05:54 11/08/20 17:02 Milk Of Magnesia 30 Ml Oral.Susp PO 30 ml DAILY PRN Administration Constipation Metformin HCl 500 mg 11/18/20 17:00 12/04/20 17:11 Metformin Hcl 500 Mg Tablet PO 500 mg BIDWM SONIA Administration Metoprolol Succinate 50 mg 10/28/20 09:00 12/04/20 08:51 Metoprolol Succinate Er 50 Mg Tab.Er.24h PO 50 mg DAILY SONIA Administration Olanzapine 5 mg 11/26/20 14:43 11/29/20 12:25 Olanzapine Odt 10 Mg Tab.Rapdis TRANSLINGU 5 mg TID PRN Administration Psychosis Olanzapine 10 mg 12/04/20 21:00 12/04/20 21:04 Olanzapine 10 Mg Tablet PO 10 mg BEDTIME SONIA Administration Pioglitazone HCl 15 mg 10/28/20 09:00 12/04/20 08:52 Pioglitazone Hcl 15 Mg Tablet PO 15 mg DAILY SOINA Administration Risperidone 2 mg 11/27/20 09:00 12/04/20 08:52 Risperidone 2 Mg Tablet PO 2 mg DAILY SONIA Administration Risperidone 2 mg 11/29/20 21:00 12/04/20 21:06 Risperidone 2 Mg Tablet PO 2 mg BEDTIME SONIA Administration Trazodone HCl 100 mg 10/28/20 06:30 12/03/20 01:00 Trazodone Hcl 100 Mg Tablet PO 100 mg BEDTIME PRN Administration Insomnia Allergies Allergies Allergy/AdvReac Type Severity Reaction Status Date / Time haloperidol [From Haldol] AdvReac Unknown Verified 10/28/20 06:32 Assessment & Plan Assessment & Plan (1) Schizoaffective disorder without good prognostic features and with catatonia: Status: Acute Code(s): F25.9 - Schizoaffective disorder, unspecified; F06.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 (2) HTN (hypertension): Status: Acute Code(s): I10 - Essential (primary) hypertension Assessment and Plan: olanzapine 10hs inc lithium check level monitor for response Greater than 50% of the session was spent on counseling and/or coordination of care Reason for contiued inpatient stay Substantial Risk for: inability to function and rapid decompensation
[2020-12-05] MEDS: Levothyroxine Sodium 125 MCG TABLET PO (06:56)
[2020-12-05 07:21] LABS: Glucose, Whole Blood 85 mg/dL (60-115)
[2020-12-05 08:45] VITALS: BP 134/79; PULSE 85
[2020-12-05] MEDS: amLODIPine Besylate 10 MG TABLET PO (08:45)
[2020-12-05] MEDS: metFORMIN HCl 500 MG TABLET PO ×2 (08:47→17:05)
[2020-12-05] MEDS: risperiDONE 2 MG TABLET PO ×2 (08:47→20:16)
[2020-12-05] MEDS: Aspirin Enteric Coated 81 MG TABLET.DR PO (08:47)
[2020-12-05] MEDS: Lithium Carbonate 300 MG TABLET 450 MG PO ×2 (08:47→20:16)
[2020-12-05] MEDS: Metoprolol Succinate ER 50 MG TAB.ER.24H PO (08:47)
[2020-12-05] MEDS: Insulin Glargine,Hum.rec.anlog 100 UNIT/ML 10 ML VIAL 28 UNIT SUBCUT (09:19)
--- NOTE | 2020-12-05 10:09 | P.PNPSI_ITS ---
Subjective Subjective Date of Service: 12/05/20 Reason For Visit: Schizoaffective Disorder acutely psychotic Interim History: Patient was seen and discussed in rounds with the help of an in best. She was in bed. She does get up, take a shower in eat. She is pleasant and minimally interactive. Soft-spoken speech. Low to no eye contact. Affect is constricted. No active SI. No acute signs of psychosis observed but she does given indications of symptoms. She is compliant with treatment. No complaints or side effects. No changes were made in current regimen and plans were reviewed and maintained Medication Compliance: Yes Side effects from medications: No Diagnostics Vital Signs (24Hr): Vital Signs - 24 hr 12/04/20 16:00 12/05/20 08:45 Temperature 98.0 F Pulse Rate 87 85 Blood Pressure 130/60 134/79 Body Mass Index 34.6 Labs Results: 10/29/20 07:51 12/01/20 14:29 Labs: Laboratory Results - last 48 hr 12/03/20 12/03/20 12/03/20 11:48 16:29 20:43 POC Glucose 97 80 132 H 12/04/20 12/04/20 12/04/20 06:25 12:17 16:57 POC Glucose 75 172 H 136 H 12/04/20 12/05/20 20:56 07:12 POC Glucose 154 H 85 Medications Medications Current Medications Generic Name Dose Route Start Last Admin Trade Name Freq PRN Reason Stop Dose Admin Acetaminophen 650 mg 10/28/20 05:54 12/02/20 19:40 Acetaminophen 325 Mg Tablet PO 650 mg Q6H PRN Administration Headache/Pain Mild Scale (1-3) Al Hydroxide/Mg Hydroxide 30 ml 10/28/20 05:54 Magnesium Hydrox/Alum Hydrox 30 Ml Oral.Susp PO Q6H PRN Heartburn/Nausea Amlodipine Besylate 10 mg 10/28/20 09:00 12/05/20 08:45 Amlodipine Besylate 10 Mg Tablet PO 10 mg DAILY SONIA Administration Artificial Tears 2 drop 11/19/20 13:19 Artificial Tears 15 Ml Drops EYE-BOTH Q4H PRN Dry Eyes Aspirin 81 mg 10/28/20 09:00 12/05/20 08:47 Aspirin Enteric Coated 81 Mg Tablet. PO 81 mg DAILY SONIA Administration Divalproex Sodium 1,250 mg 11/24/20 18:00 12/04/20 17:11 Divalproex Sodium Er 250 Mg Tab.Er.24h PO 1,250 mg DAILY@1800 SONIA Administration Hydroxyzine HCl 50 mg 11/02/20 10:45 11/26/20 00:07 Hydroxyzine Hcl 25 Mg Tablet PO 50 mg BEDTIME PRN Administration Insomnia Insulin Glargine 28 unit 10/31/20 09:00 12/05/20 09:19 Insulin Glargine,Hum.Rec.Anlog 100 Unit/Ml 10 Ml Vial SUBCUT 28 unit DAILY SONIA Administration Insulin Human Lispro 0 unit 10/28/20 21:00 12/05/20 09:19 Insulin Lispro 100 Unit/Ml 3 Ml Vial SUBCUT Not Given QIDACHS [facility] Protocol Levothyroxine Sodium 125 mcg 11/14/20 06:45 12/05/20 06:56 Levothyroxine Sodium 125 Mcg Tablet PO 125 mcg DAILY@0600 SONIA Administration [place] Carbonate 450 mg 12/04/20 09:00 12/05/20 08:47 [place] Carbonate 300 Mg Tablet PO 450 mg BID SONIA Administration Magnesium Hydroxide 30 ml 10/28/20 05:54 11/08/20 17:02 Milk Of Magnesia 30 Ml Oral.Susp PO 30 ml DAILY PRN Administration Constipation Metformin HCl 500 mg 11/18/20 17:00 12/05/20 08:47 Metformin Hcl 500 Mg Tablet PO 500 mg BIDWM SONIA Administration Metoprolol Succinate 50 mg 10/28/20 09:00 12/05/20 08:47 Metoprolol Succinate Er 50 Mg Tab.Er.24h PO 50 mg DAILY SONIA Administration Olanzapine 5 mg 11/26/20 14:43 11/29/20 12:25 Olanzapine Odt 10 Mg Tab.Rapdis TRANSLINGU 5 mg TID PRN Administration Psychosis Olanzapine 10 mg 12/04/20 21:00 12/04/20 21:04 Olanzapine 10 Mg Tablet PO 10 mg BEDTIME SONIA Administration Pioglitazone HCl 15 mg 10/28/20 09:00 12/05/20 08:47 Pioglitazone Hcl 15 Mg Tablet PO 15 mg DAILY SONIA Administration Risperidone 2 mg 11/27/20 09:00 12/05/20 08:47 Risperidone 2 Mg Tablet PO 2 mg DAILY SONIA Administration Risperidone 2 mg 11/29/20 21:00 12/04/20 21:06 Risperidone 2 Mg Tablet PO 2 mg BEDTIME SONIA Administration Trazodone HCl 100 mg 10/28/20 06:30 12/03/20 01:00 Trazodone Hcl 100 Mg Tablet PO 100 mg BEDTIME PRN Administration Insomnia Allergies Allergies Allergy/AdvReac Type Severity Reaction Status Date / Time haloperidol [From Haldol] AdvReac Unknown Verified 10/28/20 06:32 Assessment & Plan Assessment & Plan (1) Schizoaffective disorder without good prognostic features and with catatonia: Status: Acute Code(s): F25.9 - Schizoaffective disorder, unspecified; F06.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 (2) HTN (hypertension): Status: Acute Code(s): I10 - Essential (primary) hypertension Assessment and Plan: olanzapine 10hs inc lithium check level monitor for response Greater than 50% of the session was spent on counseling and/or coordination of care Reason for contiued inpatient stay Substantial Risk for: med/psych decompensation
[2020-12-05 12:18] LABS: Glucose, Whole Blood 165 mg/dL (60-115)
[2020-12-05] MEDS: Insulin Lispro 100 UNIT/ML 3 ML VIAL SUBCUT ×2 (12:48→17:06)
[2020-12-05 16:06] LABS: Glucose, Whole Blood 171 mg/dL (60-115)
[2020-12-05] MEDS: Divalproex Sodium ER 250 MG TAB.ER.24H 1250 MG PO (17:05)
[2020-12-05 20:00] VITALS: BP 131/71; PULSE 71; TEMP 36.8
[2020-12-05] MEDS: OLANZapine 10 MG TABLET PO (20:16)
[2020-12-05 21:33] LABS: Glucose, Whole Blood 132 mg/dL (60-115)
[2020-12-06 06:30] VITALS: BP 151/67; PULSE 71; TEMP 36.2
[2020-12-06] MEDS: Levothyroxine Sodium 125 MCG TABLET PO (06:49)
[2020-12-06 07:30] LABS: Lithium 0.84 mmol/L (0.60-1.20)
[2020-12-06 07:58] LABS: TSH reflex Free T4 1.57 uIU/mL (0.32-4.0)
[2020-12-06 08:02] LABS: Glucose, Whole Blood 98 mg/dL (60-115)
[2020-12-06 08:41] VITALS: BP 151/67; PULSE 71
[2020-12-06] MEDS: risperiDONE 2 MG TABLET PO ×2 (08:41→20:27)
[2020-12-06] MEDS: Metoprolol Succinate ER 50 MG TAB.ER.24H PO (08:41)
[2020-12-06] MEDS: Aspirin Enteric Coated 81 MG TABLET.DR PO (08:41)
[2020-12-06] MEDS: amLODIPine Besylate 10 MG TABLET PO (08:41)
[2020-12-06] MEDS: metFORMIN HCl 500 MG TABLET PO ×2 (08:41→17:04)
[2020-12-06] MEDS: Lithium Carbonate 300 MG TABLET 450 MG PO ×2 (08:41→20:26)
--- NOTE | 2020-12-06 08:41 | P.PNPSI_ITS ---
Subjective Subjective Date of Service: 12/06/20 Reason For Visit: Schizoaffective Disorder acutely psychotic Interim History: Patient was seen and discussed in rounds today. She has been d oing little better. Yesterday she actually got up on her own, walked and 8. She is more interactive with others but continues to be mostly isolative and in bed. She is also more verbal. No complaints or side effects reported. No dangerous behaviors. Continue current regimen and plans with no changes today Medication Compliance: Yes Side effects from medications: No Attending Groups: No Review of Systems Review of Systems Except for low appetite, poor concentration, depression Yes all other systems are reviewed and are negative Reports behavioral changes Psychiatric: Reports behavioral changes, Reports change in appetite, Reports depression, Reports difficulty concentrating, Reports hopelessness, Reports irritability, Reports anhedonia, Reports paranoia and Reports homicidal ideation Mental Status Exam Mental Status Exam Narrative: In today's visit she is alert, pleasant and minimally interactive within her means. Speech is very soft spoken. Moderate eye contact. Affect is constricted and flat. No overt signs of psychosis. No active SI. Cognitively could not be assessed. Diagnostics Vital Signs (24Hr): Vital Signs - 24 hr 12/05/20 08:45 12/05/20 20:00 12/06/20 06:30 Temperature 98.3 F 97.1 F Pulse Rate 85 71 71 Blood Pressure 134/79 131/71 151/67 H Body Mass Index 34.6 Labs Results: 10/29/20 07:51 12/01/20 14:29 Labs: Laboratory Results - last 48 hr 12/04/20 12/04/20 12/04/20 12:17 16:57 20:56 POC Glucose 172 H 136 H 154 H TSH [place] 12/05/20 12/05/20 12/05/20 07:12 12:15 15:58 POC Glucose 85 165 H 171 H TSH [place] 12/05/20 12/06/20 12/06/20 20:07 06:51 07:09 POC Glucose 132 H 98 TSH [place] 0.84 12/06/20 07:09 POC Glucose TSH 1.57 [place] Medications Medications Current Medications Generic Name Dose Route Start Last Admin Trade Name Freq PRN Reason Stop Dose Admin Acetaminophen 650 mg 10/28/20 05:54 12/02/20 19:40 Acetaminophen 325 Mg Tablet PO 650 mg Q6H PRN Administration Headache/Pain Mild Scale (1-3) Al Hydroxide/Mg Hydroxide 30 ml 10/28/20 05:54 Magnesium Hydrox/Alum Hydrox 30 Ml Oral.Susp PO Q6H PRN Heartburn/Nausea Amlodipine Besylate 10 mg 10/28/20 09:00 12/05/20 08:45 Amlodipine Besylate 10 Mg Tablet PO 10 mg DAILY SONIA Administration Artificial Tears 2 drop 11/19/20 13:19 Artificial Tears 15 Ml Drops EYE-BOTH Q4H PRN Dry Eyes Aspirin 81 mg 10/28/20 09:00 12/05/20 08:47 Aspirin Enteric Coated 81 Mg Tablet.Dr PO 81 mg DAILY SONIA Administration Divalproex Sodium 1,250 mg 11/24/20 18:00 12/05/20 17:05 Divalproex Sodium Er 250 Mg Tab.Er.24h PO 1,250 mg DAILY@1800 SONIA Administration Hydroxyzine HCl 50 mg 11/02/20 10:45 11/26/20 00:07 Hydroxyzine Hcl 25 Mg Tablet PO 50 mg BEDTIME PRN Administration Insomnia Insulin Glargine 28 unit 10/31/20 09:00 12/05/20 09:19 Insulin Glargine,Hum.Rec.Anlog 100 Unit/Ml 10 Ml Vial SUBCUT 28 unit DAILY SONIA Administration Insulin Human Lispro 0 unit 10/28/20 21:00 12/05/20 20:18 Insulin Lispro 100 Unit/Ml 3 Ml Vial SUBCUT Not Given QIDACHS [facility] Protocol Levothyroxine Sodium 125 mcg 11/14/20 06:45 12/06/20 06:49 Levothyroxine Sodium 125 Mcg Tablet PO 125 mcg DAILY@0600 SONIA Administration [place] Carbonate 450 mg 12/04/20 09:00 12/05/20 20:16 [place] Carbonate 300 Mg Tablet PO 450 mg BID SONIA Administration Magnesium Hydroxide 30 ml 10/28/20 05:54 11/08/20 17:02 Milk Of Magnesia 30 Ml Oral.Susp PO 30 ml DAILY PRN Administration Constipation Metformin HCl 500 mg 11/18/20 17:00 12/05/20 17:05 Metformin Hcl 500 Mg Tablet PO 500 mg BIDWM SONIA Administration Metoprolol Succinate 50 mg 10/28/20 09:00 12/05/20 08:47 Metoprolol Succinate Er 50 Mg Tab.Er.24h PO 50 mg DAILY SONIA Administration Olanzapine 5 mg 11/26/20 14:43 11/29/20 12:25 Olanzapine Odt 10 Mg Tab.Rapdis TRANSLINGU 5 mg TID PRN Administration Psychosis Olanzapine 10 mg 12/04/20 21:00 12/05/20 20:16 Olanzapine 10 Mg Tablet PO 10 mg BEDTIME SONIA Administration Pioglitazone HCl 15 mg 10/28/20 09:00 12/05/20 08:47 Pioglitazone Hcl 15 Mg Tablet PO 15 mg DAILY SONIA Administration Risperidone 2 mg 11/27/20 09:00 12/05/20 08:47 Risperidone 2 Mg Tablet PO 2 mg DAILY SONIA Administration Risperidone 2 mg 11/29/20 21:00 12/05/20 20:16 Risperidone 2 Mg Tablet PO 2 mg BEDTIME SONIA Administration Trazodone HCl 100 mg 10/28/20 06:30 12/03/20 01:00 Trazodone Hcl 100 Mg Tablet PO 100 mg BEDTIME PRN Administration Insomnia Allergies Allergies Allergy/AdvReac Type Severity Reaction Status Date / Time haloperidol [From Haldol] AdvReac Unknown Verified 10/28/20 06:32 Assessment & Plan Assessment & Plan (1) Schizoaffective disorder without good prognostic features and with catatonia: Status: Acute Code(s): F25.9 - Schizoaffective disorder, unspecified; F06.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 (2) HTN (hypertension): Status: Acute Code(s): I10 - Essential (primary) hypertension Assessment and Plan: olanzapine 10hs inc lithium check level monitor for response Greater than 50% of the session was spent on counseling and/or coordination of care Reason for contiued inpatient stay Substantial Risk for: med/psych decompensation
[2020-12-06] MEDS: Insulin Glargine,Hum.rec.anlog 100 UNIT/ML 10 ML VIAL 28 UNIT SUBCUT (08:42)
[2020-12-06 11:55] LABS: Glucose, Whole Blood 117 mg/dL (60-115)
[2020-12-06 16:57] LABS: Glucose, Whole Blood 193 mg/dL (60-115)
[2020-12-06] MEDS: Divalproex Sodium ER 250 MG TAB.ER.24H 1250 MG PO (17:04)
[2020-12-06] MEDS: Insulin Lispro 100 UNIT/ML 3 ML VIAL SUBCUT (17:04)
[2020-12-06 18:25] VITALS: BP 133/60; PULSE 71
[2020-12-06] MEDS: OLANZapine 10 MG TABLET PO (20:26)
[2020-12-06 20:33] LABS: Glucose, Whole Blood 146 mg/dL (60-115)
[2020-12-07] MEDS: Levothyroxine Sodium 125 MCG TABLET PO (06:19)
[2020-12-07 06:40] VITALS: BP 137/83; PULSE 76; RESP 18; TEMP 36.7; O2SAT 97
[2020-12-07 07:39] LABS: Glucose, Whole Blood 71 mg/dL (60-115)
[2020-12-07] MEDS: Insulin Glargine,Hum.rec.anlog 100 UNIT/ML 10 ML VIAL 28 UNIT SUBCUT (08:25)
[2020-12-07] MEDS: risperiDONE 2 MG TABLET PO ×2 (08:26→21:07)
[2020-12-07] MEDS: Lithium Carbonate 300 MG TABLET 450 MG PO ×2 (08:26→21:06)
[2020-12-07] MEDS: amLODIPine Besylate 10 MG TABLET PO (08:27)
[2020-12-07] MEDS: Aspirin Enteric Coated 81 MG TABLET.DR PO (08:27)
[2020-12-07] MEDS: Metoprolol Succinate ER 50 MG TAB.ER.24H PO (08:27)
[2020-12-07] MEDS: metFORMIN HCl 500 MG TABLET PO ×2 (08:27→17:19)
[2020-12-07 08:37] VITALS: BP 142/70; PULSE 70; RESP 18
[2020-12-07 11:37] LABS: Glucose, Whole Blood 164 mg/dL (60-115)
[2020-12-07 16:58] LABS: Glucose, Whole Blood 141 mg/dL (60-115)
[2020-12-07] MEDS: Divalproex Sodium ER 250 MG TAB.ER.24H 1250 MG PO (17:19)
[2020-12-07 20:20] VITALS: BP 137/64; PULSE 78; TEMP 36.5
[2020-12-07 20:50] LABS: Glucose, Whole Blood 163 mg/dL (60-115)
[2020-12-07] MEDS: Insulin Lispro 100 UNIT/ML 3 ML VIAL SUBCUT (21:07)
[2020-12-07] MEDS: OLANZapine 10 MG TABLET PO (21:07)
--- NOTE | 2020-12-07 22:11 | HO.PSYCHPN ---
Subjective Subjective Date of Service: 12/07/20 Reason For Visit: Schizoaffective Disorder acutely psychotic Subjective Notes: Conditional Voluntary Guardianship: Yes Interim History: Patient depressed withdrawn lethargic staying in her room minimally functioning has been able to stay off one-to-one Medication Compliance: Intermittent Mental Status Exam Mental Status Exam Narrative: patient lethargic a motivational withdrawn mood depressed affect constricted peer minimally interactive monotone denies active self-harm but quite depressed hopeless less paranoia impulse control intact denying active self-harm or harm to others. Needs cuing for basic functioning Diagnostics Vital Signs (24Hr): Vital Signs - 24 hr 12/07/20 06:40 12/07/20 08:37 12/07/20 20:20 Temperature 98.1 F 97.7 F Pulse Rate 76 70 78 Respiratory Rate 18 18 Blood Pressure 137/83 142/70 H 137/64 Pulse Oximetry 97 Body Mass Index 34.6 Labs Results: 10/29/20 07:51 12/08/20 08:34 Labs: Laboratory Results - last 48 hr 12/06/20 12/06/20 12/06/20 06:51 07:09 07:09 POC Glucose 98 TSH 1.57 [place] 0.84 12/06/20 12/06/20 12/06/20 11:51 16:49 20:29 POC Glucose 117 H 193 H 146 H TSH [place] 12/07/20 12/07/20 12/07/20 06:23 11:33 16:53 POC Glucose 71 164 H 141 H TSH [place] 12/07/20 20:42 POC Glucose 163 H TSH [place] Medications Medications Current Medications Generic Name Dose Route Start Last Admin Trade Name Freq PRN Reason Stop Dose Admin Acetaminophen 650 mg 10/28/20 05:54 12/02/20 19:40 Acetaminophen 325 Mg Tablet PO 650 mg Q6H PRN Administration Headache/Pain Mild Scale (1-3) Al Hydroxide/Mg Hydroxide 30 ml 10/28/20 05:54 Magnesium Hydrox/Alum Hydrox 30 Ml Oral.Susp PO Q6H PRN Heartburn/Nausea Amlodipine Besylate 10 mg 10/28/20 09:00 12/07/20 08:27 Amlodipine Besylate 10 Mg Tablet PO 10 mg DAILY SONIA Administration Artificial Tears 2 drop 11/19/20 13:19 Artificial Tears 15 Ml Drops EYE-BOTH Q4H PRN Dry Eyes Aspirin 81 mg 10/28/20 09:00 12/07/20 08:27 Aspirin Enteric Coated 81 Mg Tablet.Dr PO 81 mg DAILY SONIA Administration Divalproex Sodium 1,250 mg 11/24/20 18:00 12/07/20 17:19 Divalproex Sodium Er 250 Mg Tab.Er.24h PO 1,250 mg DAILY@1800 SONIA Administration Hydroxyzine HCl 50 mg 11/02/20 10:45 11/26/20 00:07 Hydroxyzine Hcl 25 Mg Tablet PO 50 mg BEDTIME PRN Administration Insomnia Insulin Glargine 28 unit 10/31/20 09:00 12/07/20 08:25 Insulin Glargine,Hum.Rec.Anlog 100 Unit/Ml 10 Ml Vial SUBCUT 28 unit DAILY SONIA Administration Insulin Human Lispro 0 unit 10/28/20 21:00 12/07/20 21:07 Insulin Lispro 100 Unit/Ml 3 Ml Vial SUBCUT 2 unit QIDACHS SONIA Administration Protocol Levothyroxine Sodium 125 mcg 11/14/20 06:45 12/07/20 06:19 Levothyroxine Sodium 125 Mcg Tablet PO 125 mcg DAILY@0600 SONIA Administration [place] Carbonate 450 mg 12/04/20 09:00 12/07/20 21:06 [place] Carbonate 300 Mg Tablet PO 450 mg BID SONIA Administration Magnesium Hydroxide 30 ml 10/28/20 05:54 11/08/20 17:02 Milk Of Magnesia 30 Ml Oral.Susp PO 30 ml DAILY PRN Administration Constipation Metformin HCl 500 mg 11/18/20 17:00 12/07/20 17:19 Metformin Hcl 500 Mg Tablet PO 500 mg BIDWM SONIA Administration Metoprolol Succinate 50 mg 10/28/20 09:00 12/07/20 08:27 Metoprolol Succinate Er 50 Mg Tab.Er.24h PO 50 mg DAILY SONIA Administration Olanzapine 5 mg 11/26/20 14:43 11/29/20 12:25 Olanzapine Odt 10 Mg Tab.Rapdis TRANSLINGU 5 mg TID PRN Administration Psychosis Olanzapine 10 mg 12/04/20 21:00 12/07/20 21:07 Olanzapine 10 Mg Tablet PO 10 mg BEDTIME SONIA Administration Pioglitazone HCl 15 mg 10/28/20 09:00 12/07/20 08:27 Pioglitazone Hcl 15 Mg Tablet PO 15 mg DAILY SONIA Administration Risperidone 2 mg 11/27/20 09:00 12/07/20 08:26 Risperidone 2 Mg Tablet PO 2 mg DAILY SONIA Administration Risperidone 2 mg 11/29/20 21:00 12/07/20 21:07 Risperidone 2 Mg Tablet PO 2 mg BEDTIME SONIA Administration Trazodone HCl 100 mg 10/28/20 06:30 12/03/20 01:00 Trazodone Hcl 100 Mg Tablet PO 100 mg BEDTIME PRN Administration Insomnia Allergies Allergies Allergy/AdvReac Type Severity Reaction Status Date / Time haloperidol [From Haldol] AdvReac Unknown Verified 10/28/20 06:32 Assessment & Plan Assessment & Plan (1) Schizoaffective disorder without good prognostic features and with catatonia: Status: Acute Code(s): F25.9 - Schizoaffective disorder, unspecified; F06.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 (2) HTN (hypertension): Status: Acute Code(s): I10 - Essential (primary) hypertension (3) Diabetes 1.5, managed as type 2: Status: Acute Code(s): E13.9 - Other specified diabetes mellitus without complications Assessment and Plan: olanzapine 10hs inc lithium check level monitor for response encourage out of bed Greater than 50% of the session was spent on counseling and/or coordination of care Reason for contiued inpatient stay Substantial Risk for: inability to function, rapid decompensation and med/psych decompensation
[2020-12-08 06:35] LABS: Glucose, Whole Blood 74 mg/dL (60-115)
[2020-12-08] MEDS: Levothyroxine Sodium 125 MCG TABLET PO (06:49)
[2020-12-08 07:30] VITALS: BP 135/89; PULSE 70; RESP 18; TEMP 36.3; O2SAT 94
[2020-12-08] MEDS: Lithium Carbonate 300 MG TABLET 450 MG PO ×2 (08:40→21:15)
[2020-12-08] MEDS: Insulin Glargine,Hum.rec.anlog 100 UNIT/ML 10 ML VIAL 28 UNIT SUBCUT (08:40)
[2020-12-08 08:41] VITALS: BP 137/63; PULSE 75
[2020-12-08] MEDS: Metoprolol Succinate ER 50 MG TAB.ER.24H PO (08:41)
[2020-12-08 08:42] VITALS: BP 137/63; PULSE 75
[2020-12-08] MEDS: Aspirin Enteric Coated 81 MG TABLET.DR PO (08:42)
[2020-12-08] MEDS: amLODIPine Besylate 10 MG TABLET PO (08:42)
[2020-12-08] MEDS: risperiDONE 2 MG TABLET PO ×2 (08:42→21:16)
[2020-12-08] MEDS: metFORMIN HCl 500 MG TABLET PO ×2 (08:42→17:00)
[2020-12-08 09:15] LABS: Estimated Glomerular Filt Rate > 60
[2020-12-08 12:23] LABS: Glucose, Whole Blood 129 mg/dL (60-115)
[2020-12-08 16:44] LABS: Glucose, Whole Blood 135 mg/dL (60-115)
[2020-12-08] MEDS: Divalproex Sodium ER 250 MG TAB.ER.24H 1250 MG PO (17:01)
[2020-12-08 18:00] VITALS: BP 138/82; PULSE 72; RESP 16; TEMP 36.2; O2SAT 98
[2020-12-08 20:37] LABS: Glucose, Whole Blood 142 mg/dL (60-115)
[2020-12-08] MEDS: OLANZapine 10 MG TABLET PO (21:15)
--- NOTE | 2020-12-08 21:56 | P.PNPSI_ITS ---
Subjective Subjective Date of Service: 12/08/20 Reason For Visit: Schizoaffective Disorder acutely psychotic Interim History: Patient depressed withdrawn lethargic staying in her room minim ally functioning has been able to stay off one-to-one is able to state that she feels depressed was able to ask about leaving the hospital and could hear the need to take better care of herself and to stay out of bed more. Review of Systems Review of Systems Except for low appetite, poor concentration, depression Yes all other systems are reviewed and are negative Reports behavioral changes and Reports confusion Psychiatric: Reports abnormal sleep pattern, Reports anxiety, Reports behavioral changes, Reports change in appetite, Reports confusion, Reports depression, Reports difficulty concentrating, Reports hopelessness, Reports irritability, Reports anhedonia, Reports mood swings, Reports paranoia and Reports homicidal ideation Mental Status Exam Mental Status Exam Narrative: patient lethargic a motivational withdrawn mood depressed affect constricted peer minimally interactive monotone denies active self-harm but quite depressed hopeless less paranoia impulse control intact denying active self-harm or harm to others. Needs cuing for basic functioning Of thinking more logical was able to track more logically in conversation better able to take in information. Discussed low-dose antidepressant for depression Patient Appearance: Appropriate Patient Orientation: Person Level of Consciousness: Awake Mood Description: Depressed and Flat Patient Cognition Impaired: Yes Ability to Follow Directions: Fair Speech Pattern: Inappropriate and Poor Articulation Diagnostics Vital Signs (24Hr): Vital Signs - 24 hr 12/08/20 07:30 12/08/20 08:41 12/08/20 08:42 Temperature 97.4 F Pulse Rate 70 75 75 Respiratory Rate 18 Blood Pressure 135/89 137/63 137/63 Pulse Oximetry 94 Body Mass Index 34.6 Labs Results: 10/29/20 07:51 12/08/20 08:34 Labs: Laboratory Results - last 48 hr 12/07/20 12/07/20 12/07/20 06:23 11:33 16:53 Creatinine Estim Creat Clear Calc Estimated GFR POC Glucose 71 164 H 141 H 12/07/20 12/08/20 12/08/20 20:42 06:29 08:34 Creatinine 0.61 Estim Creat Clear Calc 97.0 Estimated GFR > 60 POC Glucose 163 H 74 12/08/20 12/08/20 12/08/20 12:18 16:41 20:33 Creatinine Estim Creat Clear Calc Estimated GFR POC Glucose 129 H 135 H 142 H Medications Medications Current Medications Generic Name Dose Route Start Last Admin Trade Name Freq PRN Reason Stop Dose Admin Acetaminophen 650 mg 10/28/20 05:54 12/02/20 19:40 Acetaminophen 325 Mg Tablet PO 650 mg Q6H PRN Administration Headache/Pain Mild Scale (1-3) Al Hydroxide/Mg Hydroxide 30 ml 10/28/20 05:54 Magnesium Hydrox/Alum Hydrox 30 Ml Oral.Susp PO Q6H PRN Heartburn/Nausea Amlodipine Besylate 10 mg 10/28/20 09:00 12/08/20 08:42 Amlodipine Besylate 10 Mg Tablet PO 10 mg DAILY SONIA Administration Artificial Tears 2 drop 11/19/20 13:19 Artificial Tears 15 Ml Drops EYE-BOTH Q4H PRN Dry Eyes Aspirin 81 mg 10/28/20 09:00 12/08/20 08:42 Aspirin Enteric Coated 81 Mg Tablet.Dr PO 81 mg DAILY SONIA Administration Divalproex Sodium 1,250 mg 11/24/20 18:00 12/08/20 17:01 Divalproex Sodium Er 250 Mg Tab.Er.24h PO 1,250 mg DAILY@1800 SONIA Administration Hydroxyzine HCl 50 mg 11/02/20 10:45 11/26/20 00:07 Hydroxyzine Hcl 25 Mg Tablet PO 50 mg BEDTIME PRN Administration Insomnia Insulin Glargine 28 unit 10/31/20 09:00 12/08/20 08:40 Insulin Glargine,Hum.Rec.Anlog 100 Unit/Ml 10 Ml Vial SUBCUT 28 unit DAILY SONIA Administration Insulin Human Lispro 0 unit 10/28/20 21:00 12/08/20 21:00 Insulin Lispro 100 Unit/Ml 3 Ml Vial SUBCUT Not Given QIDACHS [facility] Protocol Levothyroxine Sodium 125 mcg 11/14/20 06:45 12/08/20 06:49 Levothyroxine Sodium 125 Mcg Tablet PO 125 mcg DAILY@0600 SONIA Administration [place] Carbonate 450 mg 12/04/20 09:00 12/08/20 21:15 [place] Carbonate 300 Mg Tablet PO 450 mg BID SONIA Administration Magnesium Hydroxide 30 ml 10/28/20 05:54 11/08/20 17:02 Milk Of Magnesia 30 Ml Oral.Susp PO 30 ml DAILY PRN Administration Constipation Metformin HCl 500 mg 11/18/20 17:00 12/08/20 17:00 Metformin Hcl 500 Mg Tablet PO 500 mg BIDWM SONIA Administration Metoprolol Succinate 50 mg 10/28/20 09:00 12/08/20 08:41 Metoprolol Succinate Er 50 Mg Tab.Er.24h PO 50 mg DAILY SONIA Administration Olanzapine 5 mg 11/26/20 14:43 11/29/20 12:25 Olanzapine Odt 10 Mg Tab.Rapdis TRANSLINGU 5 mg TID PRN Administration Psychosis Olanzapine 10 mg 12/04/20 21:00 12/08/20 21:15 Olanzapine 10 Mg Tablet PO 10 mg BEDTIME SONIA Administration Pioglitazone HCl 15 mg 10/28/20 09:00 12/08/20 08:42 Pioglitazone Hcl 15 Mg Tablet PO 15 mg DAILY SONIA Administration Risperidone 2 mg 11/27/20 09:00 12/08/20 08:42 Risperidone 2 Mg Tablet PO 2 mg DAILY SONIA Administration Risperidone 2 mg 11/29/20 21:00 12/08/20 21:16 Risperidone 2 Mg Tablet PO 2 mg BEDTIME SONIA Administration Trazodone HCl 100 mg 10/28/20 06:30 12/03/20 01:00 Trazodone Hcl 100 Mg Tablet PO 100 mg BEDTIME PRN Administration Insomnia Allergies Allergies Allergy/AdvReac Type Severity Reaction Status Date / Time haloperidol [From Haldol] AdvReac Unknown Verified 10/28/20 06:32 Assessment & Plan Assessment & Plan (1) Schizoaffective disorder without good prognostic features and with c atatonia: Status: Acute Code(s): F25.9 - Schizoaffective disorder, unspecified; F06.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 (2) HTN (hypertension): Status: Acute Code(s): I10 - Essential (primary) hypertension (3) Diabetes 1.5, managed as type 2: Status: Acute Code(s): E13.9 - Other specified diabetes mellitus without complications Assessment and Plan: olanzapine 10hs inc lithium check level monitor for response encourage out of bed start low-dose fluoxetine which combined with olanzapine has been noted to be a treatment for bipolar depression maintain low-dose of antidepressant monitor for any increased agitation anxiety. Patient was able to take in information regarding this Greater than 50% of the session was spent on counseling and/or coordination of care Reason for contiued inpatient stay Substantial Risk for: inability to function, rapid decompensation and med/psych decompensation
[2020-12-09] MEDS: Levothyroxine Sodium 125 MCG TABLET PO (06:25)
[2020-12-09 07:15] VITALS: BP 137/65; PULSE 63; RESP 18; TEMP 36.6; O2SAT 98
[2020-12-09 07:32] LABS: Glucose, Whole Blood 84 mg/dL (60-115)
[2020-12-09] MEDS: metFORMIN HCl 500 MG TABLET PO ×2 (08:35→17:20)
[2020-12-09] MEDS: Aspirin Enteric Coated 81 MG TABLET.DR PO (08:35)
[2020-12-09] MEDS: risperiDONE 2 MG TABLET PO ×2 (08:35→21:04)
[2020-12-09] MEDS: Lithium Carbonate 300 MG TABLET 450 MG PO ×2 (08:35→21:03)
[2020-12-09 08:36] VITALS: BP 133/64; PULSE 83
[2020-12-09] MEDS: amLODIPine Besylate 10 MG TABLET PO (08:36)
[2020-12-09] MEDS: FLUoxetine HCl Oral Solution 20 MG/5 ML SOLUTION 5 MG PO (08:36)
[2020-12-09] MEDS: Insulin Glargine,Hum.rec.anlog 100 UNIT/ML 10 ML VIAL 28 UNIT SUBCUT (08:36)
[2020-12-09] MEDS: Metoprolol Succinate ER 50 MG TAB.ER.24H PO (08:37)
[2020-12-09 11:59] LABS: Glucose, Whole Blood 90 mg/dL (60-115)
[2020-12-09 14:52] VITALS: BP 125/62; PULSE 70; RESP 16; TEMP 36.2; O2SAT 94
[2020-12-09 16:41] LABS: Glucose, Whole Blood 141 mg/dL (60-115)
[2020-12-09] MEDS: Divalproex Sodium ER 250 MG TAB.ER.24H 1250 MG PO (17:55)
[2020-12-09 18:00] VITALS: BP 115/61; PULSE 72; RESP 16; TEMP 36.2; O2SAT 95
[2020-12-09] MEDS: Insulin Lispro 100 UNIT/ML 3 ML VIAL SUBCUT (21:03)
[2020-12-09] MEDS: OLANZapine 10 MG TABLET PO (21:03)
[2020-12-09 21:26] LABS: Glucose, Whole Blood 152 mg/dL (60-115)
--- NOTE | 2020-12-09 21:53 | P.PNPSI_ITS ---
Subjective Subjective Date of Service: 12/09/20 Reason For Visit: Schizoaffective Disorder acutely psychotic Subjective Notes: Conditional Voluntary Guardianship: Yes Interim History: patient with a somewhat hahn range of affect has been out of her room more is aware she was started on a low-dose of an antidepressant remains depressed intermittently tearful continues to be better at processing information taking information and time Medication Compliance: Yes Mental Status Exam Mental Status Exam Narrative: patient lethargic a motivational withdrawn mood depressed affect constricted peer minimally interactive monotone denies active self-harm but quite depressed hopeless less paranoia impulse control intact denying active self-harm or harm to others. Needs cuing for basic functioning Of thinking more logical was able to track more logically in conversation better able to take in information. Discussed low-dose antidepressant for depression improved impulse control remains depressed in bed at times but is aware of need to ambulate and consciously able to commit to staying out of bed more able to express hope regarding discharge no gross paranoia during conversation was not aggressive Patient Appearance: Appropriate Patient Orientation: Person Level of Consciousness: Awake Mood Description: Depressed and Flat Patient Cognition Impaired: Yes Ability to Follow Directions: Fair Speech Pattern: Inappropriate and Poor Articulation Diagnostics Vital Signs (24Hr): Vital Signs - 24 hr 12/09/20 07:15 12/09/20 08:36 12/09/20 14:52 Temperature 98 F 97.1 F Pulse Rate 63 83 70 Respiratory Rate 18 16 Blood Pressure 137/65 133/64 125/62 Pulse Oximetry 98 94 Body Mass Index 34.6 Labs Results: 10/29/20 07:51 12/08/20 08:34 Labs: Laboratory Results - last 48 hr 12/08/20 12/08/20 12/08/20 06:29 08:34 12:18 Creatinine 0.61 Estim Creat Clear Calc 97.0 Estimated GFR > 60 POC Glucose 74 129 H 12/08/20 12/08/20 12/09/20 16:41 20:33 07:01 Creatinine Estim Creat Clear Calc Estimated GFR POC Glucose 135 H 142 H 84 12/09/20 12/09/20 12/09/20 11:56 16:36 20:58 Creatinine Estim Creat Clear Calc Estimated GFR POC Glucose 90 141 H 152 H Medications Medications Current Medications Generic Name Dose Route Start Last Admin Trade Name Freq PRN Reason Stop Dose Admin Acetaminophen 650 mg 10/28/20 05:54 12/02/20 19:40 Acetaminophen 325 Mg Tablet PO 650 mg Q6H PRN Administration Headache/Pain Mild Scale (1-3) Al Hydroxide/Mg Hydroxide 30 ml 10/28/20 05:54 Magnesium Hydrox/Alum Hydrox 30 Ml Oral.Susp PO Q6H PRN Heartburn/Nausea Amlodipine Besylate 10 mg 10/28/20 09:00 12/09/20 08:36 Amlodipine Besylate 10 Mg Tablet PO 10 mg DAILY SONIA Administration Artificial Tears 2 drop 11/19/20 13:19 Artificial Tears 15 Ml Drops EYE-BOTH Q4H PRN Dry Eyes Aspirin 81 mg 10/28/20 09:00 12/09/20 08:35 Aspirin Enteric Coated 81 Mg Tablet.Dr PO 81 mg DAILY SONIA Administration Divalproex Sodium 1,250 mg 11/24/20 18:00 12/09/20 17:55 Divalproex Sodium Er 250 Mg Tab.Er.24h PO 1,250 mg DAILY@1800 SONIA Administration Fluoxetine HCl 5 mg 12/09/20 09:00 12/09/20 08:36 Fluoxetine Hcl Oral Solution 20 Mg/5 Ml Solution PO 5 mg DAILY SONIA Administration Hydroxyzine HCl 50 mg 11/02/20 10:45 11/26/20 00:07 Hydroxyzine Hcl 25 Mg Tablet PO 50 mg BEDTIME PRN Administration Insomnia Insulin Glargine 28 unit 10/31/20 09:00 12/09/20 08:36 Insulin Glargine,Hum.Rec.Anlog 100 Unit/Ml 10 Ml Vial SUBCUT 28 unit DAILY SONIA Administration Insulin Human Lispro 0 unit 10/28/20 21:00 12/09/20 21:03 Insulin Lispro 100 Unit/Ml 3 Ml Vial SUBCUT 2 unit QIDACHS [facility] Administration Protocol Levothyroxine Sodium 125 mcg 11/14/20 06:45 12/09/20 06:25 Levothyroxine Sodium 125 Mcg Tablet PO 125 mcg DAILY@0600 SONIA Administration [place] Carbonate 450 mg 12/04/20 09:00 12/09/20 21:03 [place] Carbonate 300 Mg Tablet PO 450 mg BID SONIA Administration Magnesium Hydroxide 30 ml 10/28/20 05:54 11/08/20 17:02 Milk Of Magnesia 30 Ml Oral.Susp PO 30 ml DAILY PRN Administration Constipation Metformin HCl 500 mg 11/18/20 17:00 12/09/20 17:20 Metformin Hcl 500 Mg Tablet PO 500 mg BIDWM SONIA Administration Metoprolol Succinate 50 mg 10/28/20 09:00 12/09/20 08:37 Metoprolol Succinate Er 50 Mg Tab.Er.24h PO 50 mg DAILY SONIA Administration Olanzapine 5 mg 11/26/20 14:43 11/29/20 12:25 Olanzapine Odt 10 Mg Tab.Rapdis TRANSLINGU 5 mg TID PRN Administration Psychosis Olanzapine 10 mg 12/04/20 21:00 12/09/20 21:03 Olanzapine 10 Mg Tablet PO 10 mg BEDTIME SONIA Administration Pioglitazone HCl 15 mg 10/28/20 09:00 12/09/20 08:35 Pioglitazone Hcl 15 Mg Tablet PO 15 mg DAILY SONIA Administration Risperidone 2 mg 11/27/20 09:00 12/09/20 08:35 Risperidone 2 Mg Tablet PO 2 mg DAILY SONIA Administration Risperidone 2 mg 11/29/20 21:00 12/09/20 21:04 Risperidone 2 Mg Tablet PO 2 mg BEDTIME SONIA Administration Trazodone HCl 100 mg 10/28/20 06:30 12/03/20 01:00 Trazodone Hcl 100 Mg Tablet PO 100 mg BEDTIME PRN Administration Insomnia Allergies Allergies Allergy/AdvReac Type Severity Reaction Status Date / Time haloperidol [From Haldol] AdvReac Unknown Verified 10/28/20 06:32 Assessment & Plan Assessment & Plan (1) Schizoaffective disorder without good prognostic features and with catatonia: Status: Acute Code(s): F25.9 - Schizoaffective disorder, unspecified; F06.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 (2) HTN (hypertension): Status: Acute Code(s): I10 - Essential (primary) hypertension (3) Diabetes 1.5, managed as type 2: Status: Acute Code(s): E13.9 - Other specified diabetes mellitus without complications Assessment and Plan: continue low-dose fluoxetine lithium depakote d/c planning Greater than 50% of the session was spent on counseling and/or coordination of care Reason for contiued inpatient stay Substantial Risk for: inability to function, rapid decompensation and med/psych decompensation
[2020-12-10 06:39] LABS: Glucose, Whole Blood 82 mg/dL (60-115)
[2020-12-10] MEDS: Levothyroxine Sodium 125 MCG TABLET PO (06:42)
[2020-12-10 06:59] VITALS: BP 129/66; PULSE 69; RESP 20; TEMP 37; O2SAT 98
[2020-12-10 07:00] VITALS: BMI 34.4
[2020-12-10 08:45] VITALS: BP 134/65; PULSE 75
[2020-12-10] MEDS: Metoprolol Succinate ER 50 MG TAB.ER.24H PO (08:45)
[2020-12-10] MEDS: risperiDONE 2 MG TABLET PO ×2 (08:45→21:02)
[2020-12-10] MEDS: amLODIPine Besylate 10 MG TABLET PO (08:45)
[2020-12-10] MEDS: Lithium Carbonate 300 MG TABLET 450 MG PO ×2 (08:46→21:02)
[2020-12-10] MEDS: metFORMIN HCl 500 MG TABLET PO ×2 (08:46→17:33)
[2020-12-10] MEDS: Aspirin Enteric Coated 81 MG TABLET.DR PO (08:46)
[2020-12-10] MEDS: FLUoxetine HCl Oral Solution 20 MG/5 ML SOLUTION 5 MG PO (08:46)
[2020-12-10] MEDS: Insulin Glargine,Hum.rec.anlog 100 UNIT/ML 10 ML VIAL 28 UNIT SUBCUT (08:49)
[2020-12-10 11:58] LABS: Glucose, Whole Blood 126 mg/dL (60-115)
[2020-12-10 16:42] LABS: Glucose, Whole Blood 121 mg/dL (60-115)
[2020-12-10] MEDS: Divalproex Sodium ER 250 MG TAB.ER.24H 1250 MG PO (17:33)
[2020-12-10 17:47] VITALS: BP 115/62; PULSE 62; TEMP 36.1
[2020-12-10] MEDS: OLANZapine 10 MG TABLET PO (21:04)
[2020-12-10 21:12] LABS: Glucose, Whole Blood 130 mg/dL (60-115)
--- NOTE | 2020-12-10 22:47 | P.PNPSI_ITS ---
Subjective Subjective Date of Service: 12/10/20 Reason For Visit: Schizoaffective Disorder acutely psychotic Subjective Notes: Conditional Voluntary Interim History: patient with somewhat hahn affect out of bed somewhat more he knew month and year has been more logical Medication Compliance: Yes Mental Status Exam Mental Status Exam Narrative: patient lethargic a motivational withdrawn mood depressed affect constricted peer minimally interactive monotone denies active self-harm but quite depressed hopeless less paranoia impulse control intact denying active self-harm or harm to others. Needs cuing for basic functioning Of thinking more logical was able to track more logically in conversation better able to take in information. Discussed low-dose antidepressant for depression improved impulse control remains depressed in bed at times but is aware of need to ambulate and consciously able to commit to staying out of bed more able to express hope regarding discharge no gross paranoia during conversation was not aggressive Patient Appearance: Appropriate Patient Orientation: Person and Time Level of Consciousness: Awake Mood Description: Depressed and Flat Patient Cognition Impaired: Yes Ability to Follow Directions: Fair Speech Pattern: Inappropriate and Poor Articulation Diagnostics Vital Signs (24Hr): Vital Signs - 24 hr 12/10/20 06:59 12/10/20 08:45 12/10/20 17:47 Temperature 98.6 F 97.0 F Pulse Rate 69 75 62 Respiratory Rate 20 Blood Pressure 129/66 134/65 115/62 Pulse Oximetry 98 Body Mass Index 34.4 Labs Results: 10/29/20 07:51 12/08/20 08:34 Labs: Laboratory Results - last 48 hr 12/09/20 12/09/20 12/09/20 07:01 11:56 16:36 POC Glucose 84 90 141 H 12/09/20 12/10/20 12/10/20 20:58 06:34 11:54 POC Glucose 152 H 82 126 H 12/10/20 12/10/20 16:37 21:09 POC Glucose 121 H 130 H Medications Medications Current Medications Generic Name Dose Route Start Last Admin Trade Name Freq PRN Reason Stop Dose Admin Acetaminophen 650 mg 10/28/20 05:54 12/02/20 19:40 Acetaminophen 325 Mg Tablet PO 650 mg Q6H PRN Administration Headache/Pain Mild Scale (1-3) Al Hydroxide/Mg Hydroxide 30 ml 10/28/20 05:54 Magnesium Hydrox/Alum Hydrox 30 Ml Oral.Susp PO Q6H PRN Heartburn/Nausea Amlodipine Besylate 10 mg 10/28/20 09:00 12/10/20 08:45 Amlodipine Besylate 10 Mg Tablet PO 10 mg DAILY SONIA Administration Artificial Tears 2 drop 11/19/20 13:19 Artificial Tears 15 Ml Drops EYE-BOTH Q4H PRN Dry Eyes Aspirin 81 mg 10/28/20 09:00 12/10/20 08:46 Aspirin Enteric Coated 81 Mg Tablet.Dr PO 81 mg DAILY SONIA Administration Divalproex Sodium 1,250 mg 11/24/20 18:00 12/10/20 17:33 Divalproex Sodium Er 250 Mg Tab.Er.24h PO 1,250 mg DAILY@1800 SONIA Administration Fluoxetine HCl 5 mg 12/09/20 09:00 12/10/20 08:46 Fluoxetine Hcl Oral Solution 20 Mg/5 Ml Solution PO 5 mg DAILY SONIA Administration Hydroxyzine HCl 50 mg 11/02/20 10:45 11/26/20 00:07 Hydroxyzine Hcl 25 Mg Tablet PO 50 mg BEDTIME PRN Administration Insomnia Insulin Glargine 28 unit 10/31/20 09:00 12/10/20 08:49 Insulin Glargine,Hum.Rec.Anlog 100 Unit/Ml 10 Ml Vial SUBCUT 28 unit DAILY [facility] Administration Insulin Human Lispro 0 unit 10/28/20 21:00 12/10/20 21:17 Insulin Lispro 100 Unit/Ml 3 Ml Vial SUBCUT Not Given QIDACHS [facility] Protocol Levothyroxine Sodium 125 mcg 11/14/20 06:45 12/10/20 06:42 Levothyroxine Sodium 125 Mcg Tablet PO 125 mcg DAILY@0600 SONIA Administration [place] Carbonate 450 mg 12/04/20 09:00 12/10/20 21:02 [place] Carbonate 300 Mg Tablet PO 450 mg BID SONIA Administration Magnesium Hydroxide 30 ml 10/28/20 05:54 11/08/20 17:02 Milk Of Magnesia 30 Ml Oral.Susp PO 30 ml DAILY PRN Administration Constipation Metformin HCl 500 mg 11/18/20 17:00 12/10/20 17:33 Metformin Hcl 500 Mg Tablet PO 500 mg BIDWM SONIA Administration Metoprolol Succinate 50 mg 10/28/20 09:00 12/10/20 08:45 Metoprolol Succinate Er 50 Mg Tab.Er.24h PO 50 mg DAILY SONIA Administration Olanzapine 5 mg 11/26/20 14:43 11/29/20 12:25 Olanzapine Odt 10 Mg Tab.Rapdis TRANSLINGU 5 mg TID PRN Administration Psychosis Olanzapine 10 mg 12/04/20 21:00 12/10/20 21:04 Olanzapine 10 Mg Tablet PO 10 mg BEDTIME SONIA Administration Pioglitazone HCl 15 mg 10/28/20 09:00 12/10/20 08:46 Pioglitazone Hcl 15 Mg Tablet PO 15 mg DAILY SONIA Administration Risperidone 2 mg 11/27/20 09:00 12/10/20 08:45 Risperidone 2 Mg Tablet PO 2 mg DAILY SONIA Administration Risperidone 2 mg 11/29/20 21:00 12/10/20 21:02 Risperidone 2 Mg Tablet PO 2 mg BEDTIME SONIA Administration Trazodone HCl 100 mg 10/28/20 06:30 12/03/20 01:00 Trazodone Hcl 100 Mg Tablet PO 100 mg BEDTIME PRN Administration Insomnia Allergies Allergies Allergy/AdvReac Type Severity Reaction Status Date / Time haloperidol [From Haldol] AdvReac Unknown Verified 10/28/20 06:32 Assessment & Plan Assessment & Plan (1) Schizoaffective disorder without good prognostic features and with catatonia: Status: Acute Code(s): F25.9 - Schizoaffective disorder, unspecified; F06.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 (2) HTN (hypertension): Status: Acute Code(s): I10 - Essential (primary) hypertension (3) Diabetes 1.5, managed as type 2: Status: Acute Code(s): E13.9 - Other specified diabetes mellitus without complications Assessment and Plan: continue low-dose fluoxetine lithium depakote d/c planning he gradually improving Greater than 50% of the session was spent on counseling and/or coordination of care Reason for contiued inpatient stay Substantial Risk for: inability to function, rapid decompensation and med/psych decompensation
[2020-12-11 06:25] LABS: Glucose, Whole Blood 58 mg/dL (60-115)
[2020-12-11] MEDS: Levothyroxine Sodium 125 MCG TABLET PO (06:37)
[2020-12-11 06:58] VITALS: BP 146/67; PULSE 75; TEMP 36.8
[2020-12-11 09:18] VITALS: BP 135/72; PULSE 80
[2020-12-11] MEDS: FLUoxetine HCl Oral Solution 20 MG/5 ML SOLUTION 5 MG PO (09:18)
[2020-12-11] MEDS: amLODIPine Besylate 10 MG TABLET PO (09:18)
[2020-12-11] MEDS: metFORMIN HCl 500 MG TABLET PO ×2 (09:19→18:52)
[2020-12-11] MEDS: Metoprolol Succinate ER 50 MG TAB.ER.24H PO (09:19)
[2020-12-11] MEDS: Lithium Carbonate 300 MG TABLET 450 MG PO ×2 (09:19→20:54)
[2020-12-11] MEDS: risperiDONE 2 MG TABLET PO ×2 (09:19→20:55)
[2020-12-11] MEDS: Aspirin Enteric Coated 81 MG TABLET.DR PO (09:19)
[2020-12-11] MEDS: Insulin Glargine,Hum.rec.anlog 100 UNIT/ML 10 ML VIAL 28 UNIT SUBCUT (09:31)
--- NOTE | 2020-12-11 10:26 | P.PNPSI_ITS ---
Subjective Subjective Date of Service: 12/11/20 Reason For Visit: Schizoaffective Disorder acutely psychotic Subjective Notes: Conditional Voluntary Interim History: paste patient staying out of bed more improved mood and functioning Medication Compliance: Yes Mental Status Exam Mental Status Exam Narrative: patient lethargic a motivational withdrawn mood depressed affect constricted peer minimally interactive monotone denies active self-harm but quite depressed hopeless less paranoia impulse control intact denying active self-harm or harm to others. Needs cuing for basic functioning Of thinking more logical was able to track more logically in conversation better able to take in information. Discussed low-dose antidepressant for depression improved impulse control remains depressed in bed at times but is aware of need to ambu late and consciously able to commit to staying out of bed more able to express hope regarding discharge no gross paranoia during conversation was not aggressive Patient Appearance: Appropriate Patient Orientation: Person and Time Level of Consciousness: Awake Mood Description: Depressed and Flat Patient Cognition Impaired: Yes Ability to Follow Directions: Fair Speech Pattern: Inappropriate and Poor Articulation Diagnostics Vital Signs (24Hr): Vital Signs - 24 hr 12/10/20 17:47 12/11/20 06:58 12/11/20 09:18 Temperature 97.0 F 98.2 F Pulse Rate 62 75 80 Blood Pressure 115/62 146/67 H 135/72 Body Mass Index 34.4 Labs Results: 10/29/20 07:51 12/08/20 08:34 Labs: Laboratory Results - last 48 hr 12/09/20 12/09/20 12/09/20 11:56 16:36 20:58 POC Glucose 90 141 H 152 H 12/10/20 12/10/20 12/10/20 06:34 11:54 16:37 POC Glucose 82 126 H 121 H 12/10/20 12/11/20 21:09 06:06 POC Glucose 130 H 58 L* Medications Medications Current Medications Generic Name Dose Route Start Last Admin Trade Name Freq PRN Reason Stop Dose Admin Acetaminophen 650 mg 10/28/20 05:54 12/02/20 19:40 Acetaminophen 325 Mg Tablet PO 650 mg Q6H PRN Administration Headache/Pain Mild Scale (1-3) Al Hydroxide/Mg Hydroxide 30 ml 10/28/20 05:54 Magnesium Hydrox/Alum Hydrox 30 Ml Oral.Susp PO Q6H PRN Heartburn/Nausea Amlodipine Besylate 10 mg 10/28/20 09:00 12/11/20 09:18 Amlodipine Besylate 10 Mg Tablet PO 10 mg DAILY SONIA Administration Artificial Tears 2 drop 11/19/20 13:19 Artificial Tears 15 Ml Drops EYE-BOTH Q4H PRN Dry Eyes Aspirin 81 mg 10/28/20 09:00 12/11/20 09:19 Aspirin Enteric Coated 81 Mg Tablet.Dr PO 81 mg DAILY SONIA Administration Divalproex Sodium 1,250 mg 11/24/20 18:00 12/10/20 17:33 Divalproex Sodium Er 250 Mg Tab.Er.24h PO 1,250 mg DAILY@1800 SONIA Administration Fluoxetine HCl 5 mg 12/09/20 09:00 12/11/20 09:18 Fluoxetine Hcl Oral Solution 20 Mg/5 Ml Solution PO 5 mg DAILY SONIA Administration Hydroxyzine HCl 50 mg 11/02/20 10:45 11/26/20 00:07 Hydroxyzine Hcl 25 Mg Tablet PO 50 mg BEDTIME PRN Administration Insomnia Insulin Glargine 28 unit 10/31/20 09:00 12/11/20 09:31 Insulin Glargine,Hum.Rec.Anlog 100 Unit/Ml 10 Ml Vial SUBCUT 28 unit DAILY [facility] Administration Insulin Human Lispro 0 unit 10/28/20 21:00 12/11/20 09:33 Insulin Lispro 100 Unit/Ml 3 Ml Vial SUBCUT Not Given ANTIONE [facility] Protocol Levothyroxine Sodium 125 mcg 11/14/20 06:45 12/11/20 06:37 Levothyroxine Sodium 125 Mcg Tablet PO 125 mcg DAILY@0600 SONIA Administration [place] Carbonate 450 mg 12/04/20 09:00 12/11/20 09:19 [place] Carbonate 300 Mg Tablet PO 450 mg BID SONIA Administration Magnesium Hydroxide 30 ml 10/28/20 05:54 11/08/20 17:02 Milk Of Magnesia 30 Ml Oral.Susp PO 30 ml DAILY PRN Administration Constipation Metformin HCl 500 mg 11/18/20 17:00 12/11/20 09:19 Metformin Hcl 500 Mg Tablet PO 500 mg BIDWM SONIA Administration Metoprolol Succinate 50 mg 10/28/20 09:00 12/11/20 09:19 Metoprolol Succinate Er 50 Mg Tab.Er.24h PO 50 mg DAILY SONIA Administration Olanzapine 5 mg 11/26/20 14:43 11/29/20 12:25 Olanzapine Odt 10 Mg Tab.Rapdis TRANSLINGU 5 mg TID PRN Administration Psychosis Olanzapine 10 mg 12/04/20 21:00 12/10/20 21:04 Olanzapine 10 Mg Tablet PO 10 mg BEDTIME SONIA Administration Pioglitazone HCl 15 mg 10/28/20 09:00 12/11/20 09:19 Pioglitazone Hcl 15 Mg Tablet PO 15 mg DAILY SONIA Administration Risperidone 2 mg 11/27/20 09:00 12/11/20 09:19 Risperidone 2 Mg Tablet PO 2 mg DAILY SONIA Administration Risperidone 2 mg 11/29/20 21:00 12/10/20 21:02 Risperidone 2 Mg Tablet PO 2 mg BEDTIME SONIA Administration Trazodone HCl 100 mg 10/28/20 06:30 12/03/20 01:00 Trazodone Hcl 100 Mg Tablet PO 100 mg BEDTIME PRN Administration Insomnia Allergies Allergies Allergy/AdvReac Type Severity Reaction Status Date / Time haloperidol [From Haldol] AdvReac Unknown Verified 10/28/20 06:32 Assessment & Plan Assessment & Plan (1) Schizoaffective disorder without good prognostic features and with catatonia: Status: Acute Code(s): F25.9 - Schizoaffective disorder, unspecified; F06.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 (2) HTN (hypertension): Status: Acute Code(s): I10 - Essential (primary) hypertension (3) Diabetes 1.5, managed as type 2: Status: Acute Code(s): E13.9 - Other specified diabetes mellitus without complications Assessment and Plan: continue low-dose fluoxetine lithium depakote d/c planning she gradually improving continue diabetes treatment unclear if patient will be able to return to the [facility] Greater than 50% of the session was spent on counseling and/or coordination of care Reason for contiued inpatient stay Substantial Risk for: inability to function and rapid decompensation
[2020-12-11 11:48] LABS: Glucose, Whole Blood 154 mg/dL (60-115)
[2020-12-11] MEDS: Insulin Lispro 100 UNIT/ML 3 ML VIAL SUBCUT ×2 (12:12→20:55)
[2020-12-11 17:06] LABS: Glucose, Whole Blood 109 mg/dL (60-115)
[2020-12-11 18:00] VITALS: BP 127/63; PULSE 79; RESP 16; TEMP 36.1; O2SAT 97
[2020-12-11] MEDS: Divalproex Sodium ER 250 MG TAB.ER.24H 1250 MG PO (18:51)
[2020-12-11 20:45] LABS: Glucose, Whole Blood 176 mg/dL (60-115)
[2020-12-11] MEDS: OLANZapine 10 MG TABLET PO (20:55)
[2020-12-12 06:26] LABS: Glucose, Whole Blood 62 mg/dL (60-115)
[2020-12-12] MEDS: Levothyroxine Sodium 125 MCG TABLET PO (06:36)
[2020-12-12 08:44] VITALS: BP 123/64; PULSE 83
[2020-12-12] MEDS: amLODIPine Besylate 10 MG TABLET PO (08:44)
[2020-12-12] MEDS: Aspirin Enteric Coated 81 MG TABLET.DR PO (08:45)
[2020-12-12] MEDS: Lithium Carbonate 300 MG TABLET 450 MG PO ×2 (08:45→21:08)
[2020-12-12] MEDS: Insulin Glargine,Hum.rec.anlog 100 UNIT/ML 10 ML VIAL 28 UNIT SUBCUT (08:45)
[2020-12-12 08:46] VITALS: BP 123/64; PULSE 83
[2020-12-12] MEDS: FLUoxetine HCl Oral Solution 20 MG/5 ML SOLUTION 5 MG PO (08:46)
[2020-12-12] MEDS: Metoprolol Succinate ER 50 MG TAB.ER.24H PO (08:46)
[2020-12-12] MEDS: risperiDONE 2 MG TABLET PO ×2 (08:47→21:10)
[2020-12-12] MEDS: metFORMIN HCl 500 MG TABLET PO ×2 (08:48→17:35)
[2020-12-12 09:00] VITALS: BP 123/64; PULSE 83; RESP 16; TEMP 36.3; O2SAT 98
[2020-12-12 11:35] LABS: Glucose, Whole Blood 96 mg/dL (60-115)
[2020-12-12 13:00] VITALS: BP 111/61; PULSE 87; RESP 16; TEMP 36.4; O2SAT 95
[2020-12-12 16:50] LABS: Glucose, Whole Blood 240 mg/dL (60-115)
[2020-12-12] MEDS: Insulin Lispro 100 UNIT/ML 3 ML VIAL SUBCUT ×2 (17:35→21:11)
[2020-12-12] MEDS: Divalproex Sodium ER 250 MG TAB.ER.24H 1250 MG PO (17:35)
--- NOTE | 2020-12-12 17:54 | P.PNPSI_ITS ---
Subjective Subjective Date of Service: 12/12/20 Reason For Visit: Schizoaffective Disorder acutely psychotic Subjective Notes: Conditional Voluntary Interim History: brighter affect; denies side effects Medication Compliance: Yes Side effects from medications: No Attending Groups: Intermittent Review of Systems Review of Systems no changes Mental Status Exam Mental Status Exam Patient Appearance: Appropriate Patient Orientation: Person and Situation Level of Consciousness: Awake Patient Behavior: Appropriate, Anxious and Fatigued Mood Description: Sad Affect Description: Appropriate (brighter) Ability to Follow Directions: Fair Speech Pattern: Appropriate Judgement: Fair Diagnostics Vital Signs (24Hr): Vital Signs - 24 hr 12/11/20 18:00 12/12/20 08:44 12/12/20 08:46 Temperature 97.0 F Pulse Rate 79 83 83 Respiratory Rate 16 Blood Pressure 127/63 123/64 123/64 Pulse Oximetry 97 12/12/20 09:00 12/12/20 13:00 Temperature 97.3 F 97.5 F Pulse Rate 83 87 Respiratory Rate 16 16 Blood Pressure 123/64 111/61 Pulse Oximetry 98 95 Body Mass Index 34.4 Labs Results: 10/29/20 07:51 12/08/20 08:34 Labs: Laboratory Results - last 48 hr 12/10/20 12/11/20 12/11/20 21:09 06:06 11:42 POC Glucose 130 H 58 L* 154 H 12/11/20 12/11/20 12/12/20 17:03 20:41 06:22 POC Glucose 109 176 H 62 12/12/20 12/12/20 11:31 16:46 POC Glucose 96 240 H Medications Medications Current Medications Generic Name Dose Route Start Last Admin Trade Name Freq PRN Reason Stop Dose Admin Acetaminophen 650 mg 10/28/20 05:54 12/02/20 19:40 Acetaminophen 325 Mg Tablet PO 650 mg Q6H PRN Administration Headache/Pain Mild Scale (1-3) Al Hydroxide/Mg Hydroxide 30 ml 10/28/20 05:54 Magnesium Hydrox/Alum Hydrox 30 Ml Oral.Susp PO Q6H PRN Heartburn/Nausea Amlodipine Besylate 10 mg 10/28/20 09:00 12/12/20 08:44 Amlodipine Besylate 10 Mg Tablet PO 10 mg DAILY SONIA Administration Artificial Tears 2 drop 11/19/20 13:19 Artificial Tears 15 Ml Drops EYE-BOTH Q4H PRN Dry Eyes Aspirin 81 mg 10/28/20 09:00 12/12/20 08:45 Aspirin Enteric Coated 81 Mg Tablet.Dr PO 81 mg DAILY SONIA Administration Divalproex Sodium 1,250 mg 11/24/20 18:00 12/12/20 17:35 Divalproex Sodium Er 250 Mg Tab.Er.24h PO 1,250 mg DAILY@1800 SONIA Administration Fluoxetine HCl 5 mg 12/09/20 09:00 12/12/20 08:46 Fluoxetine Hcl Oral Solution 20 Mg/5 Ml Solution PO 5 mg DAILY SONIA Administration Hydroxyzine HCl 50 mg 11/02/20 10:45 11/26/20 00:07 Hydroxyzine Hcl 25 Mg Tablet PO 50 mg BEDTIME PRN Administration Insomnia Insulin Glargine 28 unit 10/31/20 09:00 12/12/20 08:45 Insulin Glargine,Hum.Rec.Anlog 100 Unit/Ml 10 Ml Vial SUBCUT 28 unit DAILY SONIA Administration Insulin Human Lispro 0 unit 10/28/20 21:00 12/12/20 17:35 Insulin Lispro 100 Unit/Ml 3 Ml Vial SUBCUT 4 unit QIDACHS SONIA Administration Protocol Levothyroxine Sodium 125 mcg 11/14/20 06:45 12/12/20 06:36 Levothyroxine Sodium 125 Mcg Tablet PO 125 mcg DAILY@0600 SONAI Administration [place] Carbonate 450 mg 12/04/20 09:00 12/12/20 08:45 [place] Carbonate 300 Mg Tablet PO 450 mg BID SONIA Administration Magnesium Hydroxide 30 ml 10/28/20 05:54 11/08/20 17:02 Milk Of Magnesia 30 Ml Oral.Susp PO 30 ml DAILY PRN Administration Constipation Metformin HCl 500 mg 11/18/20 17:00 12/12/20 17:35 Metformin Hcl 500 Mg Tablet PO 500 mg BIDWM SONIA Administration Metoprolol Succinate 50 mg 10/28/20 09:00 12/12/20 08:46 Metoprolol Succinate Er 50 Mg Tab.Er.24h PO 50 mg DAILY SONIA Administration Olanzapine 5 mg 11/26/20 14:43 11/29/20 12:25 Olanzapine Odt 10 Mg Tab.Rapdis TRANSLINGU 5 mg TID PRN Administration Psychosis Olanzapine 10 mg 12/04/20 21:00 12/11/20 20:55 Olanzapine 10 Mg Tablet PO 10 mg BEDTIME SONIA Administration Pioglitazone HCl 15 mg 10/28/20 09:00 12/12/20 08:47 Pioglitazone Hcl 15 Mg Tablet PO 15 mg DAILY SONIA Administration Risperidone 2 mg 11/27/20 09:00 12/12/20 08:47 Risperidone 2 Mg Tablet PO 2 mg DAILY SONIA Administration Risperidone 2 mg 11/29/20 21:00 12/11/20 20:55 Risperidone 2 Mg Tablet PO 2 mg BEDTIME SONIA Administration Trazodone HCl 100 mg 10/28/20 06:30 12/03/20 01:00 Trazodone Hcl 100 Mg Tablet PO 100 mg BEDTIME PRN Administration Insomnia Allergies Allergies Allergy/AdvReac Type Severity Reaction Status Date / Time haloperidol [From Haldol] AdvReac Unknown Verified 10/28/20 06:32 Assessment & Plan Assessment & Plan (1) Schizoaffective disorder without good prognostic features and with catatonia: Status: Acute Code(s): F25.9 - Schizoaffective disorder, unspecified; F06.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 (2) HTN (hypertension): Status: Acute Code(s): I10 - Essential (primary) hypertension (3) Diabetes 1.5, managed as type 2: Status: Acute Code(s): E13.9 - Other specified diabetes mellitus without complications Assessment and Plan: Plan continue plan as below: continue low-dose fluoxetine lithium depakote d/c planning she gradually improving continue diabetes treatment unclear if patient will be able to return to the [place] [facility] Greater than 50% of the session was spent on counseling and/or coordination of care Reason for contiued inpatient stay Substantial Risk for: inability to function and med/psych decompensation
[2020-12-12 21:00] LABS: Glucose, Whole Blood 204 mg/dL (60-115)
[2020-12-12] MEDS: OLANZapine 10 MG TABLET PO (21:10)
[2020-12-13] MEDS: Levothyroxine Sodium 125 MCG TABLET PO (06:11)
[2020-12-13 06:28] LABS: Glucose, Whole Blood 81 mg/dL (60-115)
[2020-12-13 06:57] VITALS: BP 129/66; PULSE 66; RESP 18; TEMP 37.2; O2SAT 99
[2020-12-13 08:32] VITALS: BP 127/74; PULSE 80
[2020-12-13] MEDS: Aspirin Enteric Coated 81 MG TABLET.DR PO (08:32)
[2020-12-13] MEDS: FLUoxetine HCl Oral Solution 20 MG/5 ML SOLUTION 5 MG PO (08:32)
[2020-12-13] MEDS: risperiDONE 2 MG TABLET PO ×2 (08:32→20:46)
[2020-12-13] MEDS: Lithium Carbonate 300 MG TABLET 450 MG PO ×2 (08:32→20:46)
[2020-12-13] MEDS: amLODIPine Besylate 10 MG TABLET PO (08:32)
[2020-12-13] MEDS: metFORMIN HCl 500 MG TABLET PO ×2 (08:32→17:37)
[2020-12-13] MEDS: Metoprolol Succinate ER 50 MG TAB.ER.24H PO (08:32)
[2020-12-13] MEDS: Insulin Glargine,Hum.rec.anlog 100 UNIT/ML 10 ML VIAL 28 UNIT SUBCUT (08:36)
--- NOTE | 2020-12-13 11:43 | HO.PSYCHPN ---
Subjective Subjective Date of Service: 12/13/20 Reason For Visit: Schizoaffective Disorder acutely psychotic Interim History: brighter affect; spontaneously talking to staff; attended group and participated; attending to ADLS taking meds and denies side effects Review of Systems Review of Systems no changes Yes all other systems are reviewed and are negative Reports behavioral changes and Reports confusion Psychiatric: Reports abnormal sleep pattern, Reports anxiety, Reports behavioral changes, Reports change in appetite, Reports confusion, Reports depression, Reports difficulty concentrating, Reports hopelessness, Reports irritability, Reports anhedonia, Reports mood swings, Reports paranoia and Reports homicidal ideation Mental Status Exam Mental Status Exam Patient Appearance: Appropriate Patient Orientation: Person and Situation Level of Consciousness: Awake Patient Behavior: Appropriate, Anxious and Good Eye Contact Mood Description: Sad Affect Description: Appropriate (brighter) Patient Cognition Impaired: Yes Ability to Follow Directions: Fair Speech Pattern: Appropriate Memory Description: Remote Impaired Judgement: Fair Diagnostics Vital Signs (24Hr): Vital Signs - 24 hr 12/12/20 13:00 12/13/20 06:57 12/13/20 08:32 Temperature 97.5 F 99.0 F Pulse Rate 87 66 80 Respiratory Rate 16 18 Blood Pressure 111/61 129/66 127/74 Pulse Oximetry 95 99 Body Mass Index 34.4 Labs Results: 10/29/20 07:51 12/08/20 08:34 Labs: Laboratory Results - last 48 hr 12/11/20 12/11/20 12/11/20 11:42 17:03 20:41 POC Glucose 154 H 109 176 H 12/12/20 12/12/20 12/12/20 06:22 11:31 16:46 POC Glucose 62 96 240 H 12/12/20 12/13/20 20:55 06:17 POC Glucose 204 H 81 Medications Medications Current Medications Generic Name Dose Route Start Last Admin Trade Name Freq PRN Reason Stop Dose Admin Acetaminophen 650 mg 10/28/20 05:54 12/02/20 19:40 Acetaminophen 325 Mg Tablet PO 650 mg Q6H PRN Administration Headache/Pain Mild Scale (1-3) Al Hydroxide/Mg Hydroxide 30 ml 10/28/20 05:54 Magnesium Hydrox/Alum Hydrox 30 Ml Oral.Susp PO Q6H PRN Heartburn/Nausea Amlodipine Besylate 10 mg 10/28/20 09:00 12/13/20 08:32 Amlodipine Besylate 10 Mg Tablet PO 10 mg DAILY SONIA Administration Artificial Tears 2 drop 11/19/20 13:19 Artificial Tears 15 Ml Drops EYE-BOTH Q4H PRN Dry Eyes Aspirin 81 mg 10/28/20 09:00 12/13/20 08:32 Aspirin Enteric Coated 81 Mg Tablet.Dr PO 81 mg DAILY SONIA Administration Divalproex Sodium 1,250 mg 11/24/20 18:00 12/12/20 17:35 Divalproex Sodium Er 250 Mg Tab.Er.24h PO 1,250 mg DAILY@1800 SONIA Administration Fluoxetine HCl 5 mg 12/09/20 09:00 12/13/20 08:32 Fluoxetine Hcl Oral Solution 20 Mg/5 Ml Solution PO 5 mg DAILY SONIA Administration Hydroxyzine HCl 50 mg 11/02/20 10:45 11/26/20 00:07 Hydroxyzine Hcl 25 Mg Tablet PO 50 mg BEDTIME PRN Administration Insomnia Insulin Glargine 28 unit 10/31/20 09:00 12/13/20 08:36 Insulin Glargine,Hum.Rec.Anlog 100 Unit/Ml 10 Ml Vial SUBCUT 28 unit DAILY SONIA Administration Insulin Human Lispro 0 unit 10/28/20 21:00 12/13/20 08:37 Insulin Lispro 100 Unit/Ml 3 Ml Vial SUBCUT Not Given [facility] Protocol Levothyroxine Sodium 125 mcg 11/14/20 06:45 12/13/20 06:11 Levothyroxine Sodium 125 Mcg Tablet PO 125 mcg DAILY@0600 SONIA Administration [place] Carbonate 450 mg 12/04/20 09:00 12/13/20 08:32 [place] Carbonate 300 Mg Tablet PO 450 mg BID SONIA Administration Magnesium Hydroxide 30 ml 10/28/20 05:54 11/08/20 17:02 Milk Of Magnesia 30 Ml Oral.Susp PO 30 ml DAILY PRN Administration Constipation Metformin HCl 500 mg 11/18/20 17:00 12/13/20 08:32 Metformin Hcl 500 Mg Tablet PO 500 mg BIDWM SONIA Administration Metoprolol Succinate 50 mg 10/28/20 09:00 12/13/20 08:32 Metoprolol Succinate Er 50 Mg Tab.Er.24h PO 50 mg DAILY SONIA Administration Olanzapine 5 mg 11/26/20 14:43 11/29/20 12:25 Olanzapine Odt 10 Mg Tab.Rapdis TRANSLINGU 5 mg TID PRN Administration Psychosis Olanzapine 10 mg 12/04/20 21:00 12/12/20 21:10 Olanzapine 10 Mg Tablet PO 10 mg BEDTIME SONIA Administration Pioglitazone HCl 15 mg 10/28/20 09:00 12/13/20 08:32 Pioglitazone Hcl 15 Mg Tablet PO 15 mg DAILY SONIA Administration Risperidone 2 mg 11/27/20 09:00 12/13/20 08:32 Risperidone 2 Mg Tablet PO 2 mg DAILY SONIA Administration Risperidone 2 mg 11/29/20 21:00 12/12/20 21:10 Risperidone 2 Mg Tablet PO 2 mg BEDTIME SONIA Administration Trazodone HCl 100 mg 10/28/20 06:30 12/03/20 01:00 Trazodone Hcl 100 Mg Tablet PO 100 mg BEDTIME PRN Administration Insomnia Allergies Allergies Allergy/AdvReac Type Severity Reaction Status Date / Time haloperidol [From Haldol] AdvReac Unknown Verified 10/28/20 06:32 Assessment & Plan Assessment & Plan (1) Schizoaffective disorder without good prognostic features and with catatonia: Status: Acute Code(s): F25.9 - Schizoaffective disorder, unspecified; F06.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 (2) HTN (hypertension): Status: Acute Code(s): I10 - Essential (primary) hypertension (3) Diabetes 1.5, managed as type 2: Status: Acute Code(s): E13.9 - Other specified diabetes mellitus without complications Assessment and Plan: Plan continue plan as below: continue low-dose fluoxetine lithium depakote d/c planning she gradually improving continue diabetes treatment unclear if patient will be able to return to the [facility] Greater than 50% of the session was spent on counseling and/or coordination of care Reason for contiued inpatient stay Substantial Risk for: rapid decompensation and med/psych decompensation
[2020-12-13 11:59] LABS: Glucose, Whole Blood 253 mg/dL (60-115)
[2020-12-13] MEDS: Insulin Lispro 100 UNIT/ML 3 ML VIAL SUBCUT ×3 (12:03→20:47)
[2020-12-13 16:36] LABS: Glucose, Whole Blood 195 mg/dL (60-115)
[2020-12-13 17:07] VITALS: BP 115/67; PULSE 87; TEMP 35.9; O2SAT 97
[2020-12-13] MEDS: Divalproex Sodium ER 250 MG TAB.ER.24H 1250 MG PO (17:36)
[2020-12-13 20:45] LABS: Glucose, Whole Blood 193 mg/dL (60-115)
[2020-12-13] MEDS: OLANZapine 10 MG TABLET PO (20:46)
[2020-12-13] MEDS: traZODone HCL 100 MG TABLET PO (23:46)
[2020-12-14] MEDS: Levothyroxine Sodium 125 MCG TABLET PO (06:14)
[2020-12-14 06:23] LABS: Glucose, Whole Blood 110 mg/dL (60-115)
[2020-12-14 06:39] VITALS: BP 126/55; PULSE 64; RESP 16; TEMP 36.6; O2SAT 98
[2020-12-14 08:33] VITALS: BP 122/58; PULSE 64
[2020-12-14] MEDS: amLODIPine Besylate 10 MG TABLET PO (08:33)
[2020-12-14] MEDS: Aspirin Enteric Coated 81 MG TABLET.DR PO (08:34)
[2020-12-14 08:35] VITALS: BP 122/58; PULSE 64
[2020-12-14] MEDS: FLUoxetine HCl Oral Solution 20 MG/5 ML SOLUTION 5 MG PO (08:35)
[2020-12-14] MEDS: risperiDONE 2 MG TABLET PO ×2 (08:35→21:06)
[2020-12-14] MEDS: metFORMIN HCl 500 MG TABLET PO ×2 (08:35→17:23)
[2020-12-14] MEDS: Metoprolol Succinate ER 50 MG TAB.ER.24H PO (08:35)
[2020-12-14] MEDS: Insulin Glargine,Hum.rec.anlog 100 UNIT/ML 10 ML VIAL 28 UNIT SUBCUT (08:40)
[2020-12-14] MEDS: Lithium Carbonate 300 MG TABLET 450 MG PO ×2 (10:40→21:05)
--- NOTE | 2020-12-14 12:33 | HO.PSYCHPN ---
Subjective Subjective Date of Service: 12/14/20 Reason For Visit: Schizoaffective Disorder acutely psychotic Interim History: making much progress, bright affect; spontaneously talking to staff and peers appropriately; attended group and participated; attending to ADLS, eating, taking meds, and denies side effects Review of Systems Review of Systems no changes Yes all other systems are reviewed and are negative Reports behavioral changes and Reports confusion Psychiatric: Reports abnormal sleep pattern, Reports anxiety, Reports behavioral changes, Reports change in appetite, Reports confusion, Reports depression, Reports difficulty concentrating, Reports hopelessness, Reports irritability, Reports anhedonia, Reports mood swings, Reports paranoia and Reports homicidal ideation Mental Status Exam Mental Status Exam Narrative: Patient Appearance: Well Grooomed and Appropriate Patient Orientation: Person and Situation Level of Consciousness: Awake Patient Behavior: Appropriate, Anxious and Good Eye Contact Mood Description: Appropriate Affect Description: Appropriate (brighter) Patient Cognition Impaired: Yes Ability to Follow Directions: Fair Speech Pattern: Appropriate Memory Description: Remote Impaired Thought Process: Intact Thought Content: positive for Intact Judgement: Fair Diagnostics Vital Signs (24Hr): Vital Signs - 24 hr 12/13/20 17:07 12/14/20 06:39 12/14/20 08:33 Temperature 96.6 F L 97.8 F Pulse Rate 87 64 64 Respiratory Rate 16 Blood Pressure 115/67 126/55 L 122/58 L Pulse Oximetry 97 98 12/14/20 08:35 Temperature Pulse Rate 64 Respiratory Rate Blood Pressure 122/58 L Pulse Oximetry Body Mass Index 34.4 Labs Results: 10/29/20 07:51 12/08/20 08:34 Labs: Laboratory Results - last 48 hr 12/12/20 12/12/20 12/13/20 16:46 20:55 06:17 POC Glucose 240 H 204 H 81 12/13/20 12/13/20 12/13/20 11:56 16:32 20:35 POC Glucose 253 H 195 H 193 H 12/14/20 06:18 POC Glucose 110 Medications Medications Current Medications Generic Name Dose Route Start Last Admin Trade Name Freq PRN Reason Stop Dose Admin Acetaminophen 650 mg 10/28/20 05:54 12/02/20 19:40 Acetaminophen 325 Mg Tablet PO 650 mg Q6H PRN Administration Headache/Pain Mild Scale (1-3) Al Hydroxide/Mg Hydroxide 30 ml 10/28/20 05:54 Magnesium Hydrox/Alum Hydrox 30 Ml Oral.Susp PO Q6H PRN Heartburn/Nausea Amlodipine Besylate 10 mg 10/28/20 09:00 12/14/20 08:33 Amlodipine Besylate 10 Mg Tablet PO 10 mg DAILY SONIA Administration Artificial Tears 2 drop 11/19/20 13:19 Artificial Tears 15 Ml Drops EYE-BOTH Q4H PRN Dry Eyes Aspirin 81 mg 10/28/20 09:00 12/14/20 08:34 Aspirin Enteric Coated 81 Mg Tablet.Dr PO 81 mg DAILY SONIA Administration Divalproex Sodium 1,250 mg 11/24/20 18:00 12/13/20 17:36 Divalproex Sodium Er 250 Mg Tab.Er.24h PO 1,250 mg DAILY@1800 SONIA Administration Fluoxetine HCl 5 mg 12/09/20 09:00 12/14/20 08:35 Fluoxetine Hcl Oral Solution 20 Mg/5 Ml Solution PO 5 mg DAILY SONIA Administration Hydroxyzine HCl 50 mg 11/02/20 10:45 11/26/20 00:07 Hydroxyzine Hcl 25 Mg Tablet PO 50 mg BEDTIME PRN Administration Insomnia Insulin Glargine 28 unit 10/31/20 09:00 12/14/20 08:40 Insulin Glargine,Hum.Rec.Anlog 100 Unit/Ml 10 Ml Vial SUBCUT 28 unit DAILY SONIA Administration Insulin Human Lispro 0 unit 10/28/20 21:00 12/14/20 06:25 Insulin Lispro 100 Unit/Ml 3 Ml Vial SUBCUT Not Given QIDACHS [facility] Protocol Levothyroxine Sodium 125 mcg 11/14/20 06:45 12/14/20 06:14 Levothyroxine Sodium 125 Mcg Tablet PO 125 mcg DAILY@0600 SONIA Administration [place] Carbonate 450 mg 12/04/20 09:00 12/14/20 10:40 [place] Carbonate 300 Mg Tablet PO 450 mg BID SONIA Administration Magnesium Hydroxide 30 ml 10/28/20 05:54 11/08/20 17:02 Milk Of Magnesia 30 Ml Oral.Susp PO 30 ml DAILY PRN Administration Constipation Metformin HCl 500 mg 11/18/20 17:00 12/14/20 08:35 Metformin Hcl 500 Mg Tablet PO 500 mg BIDWM SONIA Administration Metoprolol Succinate 50 mg 10/28/20 09:00 12/14/20 08:35 Metoprolol Succinate Er 50 Mg Tab.Er.24h PO 50 mg DAILY SONIA Administration Olanzapine 5 mg 11/26/20 14:43 11/29/20 12:25 Olanzapine Odt 10 Mg Tab.Rapdis TRANSLINGU 5 mg TID PRN Administration Psychosis Olanzapine 10 mg 12/04/20 21:00 12/13/20 20:46 Olanzapine 10 Mg Tablet PO 10 mg BEDTIME SONIA Administration Pioglitazone HCl 15 mg 10/28/20 09:00 12/14/20 08:35 Pioglitazone Hcl 15 Mg Tablet PO 15 mg DAILY SONIA Administration Risperidone 2 mg 11/27/20 09:00 12/14/20 08:35 Risperidone 2 Mg Tablet PO 2 mg DAILY SONIA Administration Risperidone 2 mg 11/29/20 21:00 12/13/20 20:46 Risperidone 2 Mg Tablet PO 2 mg BEDTIME SONIA Administration Trazodone HCl 100 mg 10/28/20 06:30 12/13/20 23:46 Trazodone Hcl 100 Mg Tablet PO 100 mg BEDTIME PRN Administration Insomnia Allergies Allergies Allergy/AdvReac Type Severity Reaction Status Date / Time haloperidol [From Haldol] AdvReac Unknown Verified 10/28/20 06:32 Assessment & Plan Assessment & Plan (1) Schizoaffective disorder without good prognostic features and with catatonia: Status: Acute Code(s): F25.9 - Schizoaffective disorder, unspecified; F06.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 (2) HTN (hypertension): Status: Acute Code(s): I10 - Essential (primary) hypertension (3) Diabetes 1.5, managed as type 2: Status: Acute Code(s): E13.9 - Other specified diabetes mellitus without complications Assessment and Plan: Plan continue plan as below: continue low-dose fluoxetine lithium depakote d/c planning as she is she gradually improving continue diabetes treatment unclear if patient will be able to return to the [facility] Greater than 50% of the session was spent on counseling and/or coordination of care Reason for contiued inpatient stay Substantial Risk for: inability to function, rapid decompensation and med/psych decompensation
[2020-12-14 12:50] LABS: Glucose, Whole Blood 196 mg/dL (60-115)
[2020-12-14] MEDS: Insulin Lispro 100 UNIT/ML 3 ML VIAL SUBCUT ×3 (13:00→21:07)
[2020-12-14 16:20] VITALS: BP 132/63; PULSE 71; TEMP 36.3
[2020-12-14 16:58] LABS: Glucose, Whole Blood 190 mg/dL (60-115)
[2020-12-14] MEDS: Divalproex Sodium ER 250 MG TAB.ER.24H 1250 MG PO (17:24)
[2020-12-14 20:46] LABS: Glucose, Whole Blood 228 mg/dL (60-115)
[2020-12-14] MEDS: OLANZapine 10 MG TABLET PO (21:06)
[2020-12-15] MEDS: Levothyroxine Sodium 125 MCG TABLET PO (06:03)
[2020-12-15 06:38] LABS: Glucose, Whole Blood 84 mg/dL (60-115)
[2020-12-15 07:34] VITALS: BP 122/58; PULSE 68; RESP 18; TEMP 36.3; O2SAT 98
[2020-12-15 08:03] LABS: Creatinine Clr Calc Pharmacy 95.1; Estimated Glomerular Filt Rate > 60
[2020-12-15 08:36] VITALS: BP 113/65; PULSE 71
[2020-12-15] MEDS: Metoprolol Succinate ER 50 MG TAB.ER.24H PO (08:36)
[2020-12-15] MEDS: metFORMIN HCl 500 MG TABLET PO ×2 (08:36→17:18)
[2020-12-15] MEDS: Lithium Carbonate 300 MG TABLET 450 MG PO ×2 (08:36→20:32)
[2020-12-15] MEDS: amLODIPine Besylate 10 MG TABLET PO (08:36)
[2020-12-15] MEDS: Aspirin Enteric Coated 81 MG TABLET.DR PO (08:36)
[2020-12-15] MEDS: risperiDONE 2 MG TABLET PO ×2 (08:37→20:32)
[2020-12-15] MEDS: FLUoxetine HCl Oral Solution 20 MG/5 ML SOLUTION 5 MG PO (08:37)
[2020-12-15] MEDS: Insulin Glargine,Hum.rec.anlog 100 UNIT/ML 10 ML VIAL 28 UNIT SUBCUT (08:40)
[2020-12-15 11:51] LABS: Glucose, Whole Blood 118 mg/dL (60-115)
[2020-12-15 16:20] VITALS: BP 148/70; PULSE 71; TEMP 35.9
[2020-12-15 17:10] LABS: Glucose, Whole Blood 292 mg/dL (60-115)
[2020-12-15] MEDS: Divalproex Sodium ER 250 MG TAB.ER.24H 1250 MG PO (17:18)
[2020-12-15] MEDS: Insulin Lispro 100 UNIT/ML 3 ML VIAL SUBCUT ×2 (17:19→20:35)
[2020-12-15 20:28] LABS: Glucose, Whole Blood 216 mg/dL (60-115)
[2020-12-15] MEDS: OLANZapine 10 MG TABLET PO (20:32)
--- NOTE | 2020-12-15 21:52 | P.PNPSI_ITS ---
Subjective Subjective Date of Service: 12/15/20 Reason For Visit: Schizoaffective Disorder acutely psychotic Subjective Notes: Conditional Voluntary Guardianship: Yes Interim History: as patient with much hahn affect no gross paranoia come not agitated improvement taken Mental Status Exam Mental Status Exam Narrative: Patient Appearance: Well Grooomed and Appropriate Patient Orientation: Person and Situation Level of Consciousness: Awake Patient Behavior: Appropriate, Anxious and Good Eye Contact Mood Description: Appropriate Affect Description: Appropriate (brighter) Patient Cognition Impaired: Yes Ability to Follow Directions: Fair Speech Pattern: Appropriate Memory Description: Remote Impaired Thought Process: Intact Thought Content: positive for Intact Judgement: Fair Diagnostics Vital Signs (24Hr): Vital Signs - 24 hr 12/15/20 07:34 12/15/20 08:36 12/15/20 16:20 Temperature 97.4 F 96.7 F L Pulse Rate 68 71 71 Respiratory Rate 18 Blood Pressure 122/58 L 113/65 148/70 H Pulse Oximetry 98 Body Mass Index 34.4 Labs Results: 10/29/20 07:51 12/15/20 07:38 Labs: Laboratory Results - last 48 hr 12/14/20 12/14/20 12/14/20 06:18 12:45 16:53 Creatinine Estim Creat Clear Calc Estimated GFR POC Glucose 110 196 H 190 H 12/14/20 12/15/20 12/15/20 20:41 06:08 07:38 Creatinine 0.62 Estim Creat Clear Calc 95.1 Estimated GFR > 60 POC Glucose 228 H 84 12/15/20 12/15/20 12/15/20 11:47 16:50 20:25 Creatinine Estim Creat Clear Calc Estimated GFR POC Glucose 118 H 292 H 216 H Medications Medications Current Medications Generic Name Dose Route Start Last Admin Trade Name Freq PRN Reason Stop Dose Admin Acetaminophen 650 mg 10/28/20 05:54 12/02/20 19:40 Acetaminophen 325 Mg Tablet PO 650 mg Q6H PRN Administration Headache/Pain Mild Scale (1-3) Al Hydroxide/Mg Hydroxide 30 ml 10/28/20 05:54 Magnesium Hydrox/Alum Hydrox 30 Ml Oral.Susp PO Q6H PRN Heartburn/Nausea Amlodipine Besylate 10 mg 10/28/20 09:00 12/15/20 08:36 Amlodipine Besylate 10 Mg Tablet PO 10 mg DAILY SONIA Administration Artificial Tears 2 drop 11/19/20 13:19 Artificial Tears 15 Ml Drops EYE-BOTH Q4H PRN Dry Eyes Aspirin 81 mg 10/28/20 09:00 12/15/20 08:36 Aspirin Enteric Coated 81 Mg Tablet.Dr PO 81 mg DAILY SONIA Administration Divalproex Sodium 1,250 mg 11/24/20 18:00 12/15/20 17:18 Divalproex Sodium Er 250 Mg Tab.Er.24h PO 1,250 mg DAILY@1800 SONIA Administration Fluoxetine HCl 5 mg 12/09/20 09:00 12/15/20 08:37 Fluoxetine Hcl Oral Solution 20 Mg/5 Ml Solution PO 5 mg DAILY SONIA Administration Hydroxyzine HCl 50 mg 11/02/20 10:45 11/26/20 00:07 Hydroxyzine Hcl 25 Mg Tablet PO 50 mg BEDTIME PRN Administration Insomnia Insulin Glargine 28 unit 10/31/20 09:00 12/15/20 08:40 Insulin Glargine,Hum.Rec.Anlog 100 Unit/Ml 10 Ml Vial SUBCUT 28 unit DAILY SONIA Administration Insulin Human Lispro 0 unit 10/28/20 21:00 12/15/20 20:35 Insulin Lispro 100 Unit/Ml 3 Ml Vial SUBCUT 4 unit QIDACHS SONIA Administration Protocol Levothyroxine Sodium 125 mcg 11/14/20 06:45 12/15/20 06:03 Levothyroxine Sodium 125 Mcg Tablet PO 125 mcg DAILY@0600 SONIA Administration [place] Carbonate 450 mg 12/04/20 09:00 12/15/20 20:32 [place] Carbonate 300 Mg Tablet PO 450 mg BID SONIA Administration Magnesium Hydroxide 30 ml 10/28/20 05:54 11/08/20 17:02 Milk Of Magnesia 30 Ml Oral.Susp PO 30 ml DAILY PRN Administration Constipation Metformin HCl 500 mg 11/18/20 17:00 12/15/20 17:18 Metformin Hcl 500 Mg Tablet PO 500 mg BIDWM SONIA Administration Metoprolol Succinate 50 mg 10/28/20 09:00 12/15/20 08:36 Metoprolol Succinate Er 50 Mg Tab.Er.24h PO 50 mg DAILY SONIA Administration Olanzapine 5 mg 11/26/20 14:43 11/29/20 12:25 Olanzapine Odt 10 Mg Tab.Rapdis TRANSLINGU 5 mg TID PRN Administration Psychosis Olanzapine 10 mg 12/04/20 21:00 12/15/20 20:32 Olanzapine 10 Mg Tablet PO 10 mg BEDTIME SONIA Administration Pioglitazone HCl 15 mg 10/28/20 09:00 12/15/20 08:36 Pioglitazone Hcl 15 Mg Tablet PO 15 mg DAILY SONIA Administration Risperidone 2 mg 11/27/20 09:00 12/15/20 08:37 Risperidone 2 Mg Tablet PO 2 mg DAILY SONIA Administration Risperidone 2 mg 11/29/20 21:00 12/15/20 20:32 Risperidone 2 Mg Tablet PO 2 mg BEDTIME SONIA Administration Trazodone HCl 100 mg 10/28/20 06:30 12/13/20 23:46 Trazodone Hcl 100 Mg Tablet PO 100 mg BEDTIME PRN Administration Insomnia Allergies Allergies Allergy/AdvReac Type Severity Reaction Status Date / Time haloperidol [From Haldol] AdvReac Unknown Verified 10/28/20 06:32 Assessment & Plan Assessment & Plan (1) Schizoaffective disorder without good prognostic features and with catatonia: Status: Acute Code(s): F25.9 - Schizoaffective disorder, unspecified; F06.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 (2) HTN (hypertension): Status: Acute Code(s): I10 - Essential (primary) hypertension (3) Diabetes 1.5, managed as type 2: Status: Acute Code(s): E13.9 - Other specified diabetes mellitus without complications Assessment and Plan: Plan continue plan as below: continue low-dose fluoxetine lithium depakote d/c planning as she is she gradually improving continue diabetes treatment [facility] reportedly refused to take patient back in spite of the fact that her mental status is much improved coordinate with social Work and [facility] Greater than 50% of the session was spent on counseling and/or coordination of care Reason for contiued inpatient stay Substantial Risk for: inability to function, rapid decompensation and med/psych decompensation
[2020-12-16] MEDS: Levothyroxine Sodium 125 MCG TABLET PO (06:05)
[2020-12-16 06:27] LABS: Glucose, Whole Blood 81 mg/dL (60-115)
[2020-12-16 07:08] VITALS: BP 136/64; PULSE 83; RESP 18; TEMP 36.5; O2SAT 99
[2020-12-16 09:00] VITALS: BP 115/58; PULSE 94
[2020-12-16 09:08] VITALS: BP 122/69; PULSE 78
[2020-12-16] MEDS: Lithium Carbonate 300 MG TABLET 450 MG PO ×2 (09:08→20:18)
[2020-12-16] MEDS: metFORMIN HCl 500 MG TABLET PO ×2 (09:08→16:51)
[2020-12-16] MEDS: amLODIPine Besylate 10 MG TABLET PO (09:08)
[2020-12-16] MEDS: Aspirin Enteric Coated 81 MG TABLET.DR PO (09:08)
[2020-12-16] MEDS: FLUoxetine HCl Oral Solution 20 MG/5 ML SOLUTION 5 MG PO (09:08)
[2020-12-16] MEDS: risperiDONE 2 MG TABLET PO ×2 (09:08→20:18)
[2020-12-16] MEDS: Metoprolol Succinate ER 50 MG TAB.ER.24H PO (09:08)
[2020-12-16] MEDS: Insulin Glargine,Hum.rec.anlog 100 UNIT/ML 10 ML VIAL 28 UNIT SUBCUT (09:12)
[2020-12-16 12:36] LABS: Glucose, Whole Blood 118 mg/dL (60-115)
[2020-12-16 13:00] VITALS: BP 115/58; PULSE 91
[2020-12-16 16:25] VITALS: BP 128/74; PULSE 80; RESP 16; TEMP 35.9; O2SAT 99
[2020-12-16] MEDS: Insulin Lispro 100 UNIT/ML 3 ML VIAL SUBCUT ×2 (16:50→20:16)
[2020-12-16 17:00] LABS: Glucose, Whole Blood 238 mg/dL (60-115)
[2020-12-16] MEDS: Divalproex Sodium ER 250 MG TAB.ER.24H 1250 MG PO (17:54)
[2020-12-16] MEDS: OLANZapine 10 MG TABLET PO (20:19)
[2020-12-16 20:47] LABS: Glucose, Whole Blood 225 mg/dL (60-115)
--- NOTE | 2020-12-16 22:38 | HO.PSYCHPN ---
Subjective Subjective Date of Service: 12/16/20 Reason For Visit: Schizoaffective Disorder acutely psychotic Subjective Notes: Conditional Voluntary Guardianship: Yes Interim History: pt gradually improving less labile less paranoia sw making referrals Mental Status Exam Mental Status Exam Narrative: Patient Appearance: Well Grooomed and Appropriate Patient Orientation: Person and Situation Level of Consciousness: Awake Patient Behavior: Appropriate, Anxious and Good Eye Contact Mood Description: Appropriate Affect Description: Appropriate (brighter) Patient Cognition Impaired: Yes Ability to Follow Directions: Fair Speech Pattern: Appropriate Memory Description: Remote Impaired Thought Process: Intact Thought Content: positive for Intact Judgement: Fair Diagnostics Vital Signs (24Hr): Vital Signs - 24 hr 12/16/20 07:08 12/16/20 09:00 12/16/20 09:08 Temperature 97.7 F Pulse Rate 83 94 78 Respiratory Rate 18 Blood Pressure 136/64 115/58 L 122/69 Pulse Oximetry 99 12/16/20 13:00 12/16/20 16:25 Temperature 96.7 F L Pulse Rate 91 80 Respiratory Rate 16 Blood Pressure 115/58 L 128/74 Pulse Oximetry 99 Body Mass Index 34.4 Labs Results: 10/29/20 07:51 12/15/20 07:38 Labs: Laboratory Results - last 48 hr 12/15/20 12/15/20 12/15/20 06:08 07:38 11:47 Creatinine 0.62 Estim Creat Clear Calc 95.1 Estimated GFR > 60 POC Glucose 84 118 H 12/15/20 12/15/20 12/16/20 16:50 20:25 06:19 Creatinine Estim Creat Clear Calc Estimated GFR POC Glucose 292 H 216 H 81 12/16/20 12/16/20 12/16/20 12:32 16:46 20:13 Creatinine Estim Creat Clear Calc Estimated GFR POC Glucose 118 H 238 H 225 H Medications Medications Current Medications Generic Name Dose Route Start Last Admin Trade Name Freq PRN Reason Stop Dose Admin Acetaminophen 650 mg 10/28/20 05:54 12/02/20 19:40 Acetaminophen 325 Mg Tablet PO 650 mg Q6H PRN Administration Headache/Pain Mild Scale (1-3) Al Hydroxide/Mg Hydroxide 30 ml 10/28/20 05:54 Magnesium Hydrox/Alum Hydrox 30 Ml Oral.Susp PO Q6H PRN Heartburn/Nausea Amlodipine Besylate 10 mg 10/28/20 09:00 12/16/20 09:08 Amlodipine Besylate 10 Mg Tablet PO 10 mg DAILY SONIA Administration Artificial Tears 2 drop 11/19/20 13:19 Artificial Tears 15 Ml Drops EYE-BOTH Q4H PRN Dry Eyes Aspirin 81 mg 10/28/20 09:00 12/16/20 09:08 Aspirin Enteric Coated 81 Mg Tablet.Dr PO 81 mg DAILY SONIA Administration Divalproex Sodium 1,250 mg 11/24/20 18:00 12/16/20 17:54 Divalproex Sodium Er 250 Mg Tab.Er.24h PO 1,250 mg DAILY@1800 SONIA Administration Fluoxetine HCl 5 mg 12/09/20 09:00 12/16/20 09:08 Fluoxetine Hcl Oral Solution 20 Mg/5 Ml Solution PO 5 mg DAILY SONIA Administration Hydroxyzine HCl 50 mg 11/02/20 10:45 11/26/20 00:07 Hydroxyzine Hcl 25 Mg Tablet PO 50 mg BEDTIME PRN Administration Insomnia Insulin Glargine 28 unit 10/31/20 09:00 12/16/20 09:12 Insulin Glargine,Hum.Rec.Anlog 100 Unit/Ml 10 Ml Vial SUBCUT 28 unit DAILY SONIA Administration Insulin Human Lispro 0 unit 10/28/20 21:00 12/16/20 20:16 Insulin Lispro 100 Unit/Ml 3 Ml Vial SUBCUT 4 unit QIDACHS [facility] Administration Protocol Levothyroxine Sodium 125 mcg 11/14/20 06:45 12/16/20 06:05 Levothyroxine Sodium 125 Mcg Tablet PO 125 mcg DAILY@0600 SONIA Administration [place] Carbonate 450 mg 12/04/20 09:00 12/16/20 20:18 [place] Carbonate 300 Mg Tablet PO 450 mg BID SONIA Administration Magnesium Hydroxide 30 ml 10/28/20 05:54 11/08/20 17:02 Milk Of Magnesia 30 Ml Oral.Susp PO 30 ml DAILY PRN Administration Constipation Metformin HCl 500 mg 11/18/20 17:00 12/16/20 16:51 Metformin Hcl 500 Mg Tablet PO 500 mg BIDWM SONIA Administration Metoprolol Succinate 50 mg 10/28/20 09:00 12/16/20 09:08 Metoprolol Succinate Er 50 Mg Tab.Er.24h PO 50 mg DAILY SONIA Administration Olanzapine 5 mg 11/26/20 14:43 11/29/20 12:25 Olanzapine Odt 10 Mg Tab.Rapdis TRANSLINGU 5 mg TID PRN Administration Psychosis Olanzapine 10 mg 12/04/20 21:00 12/16/20 20:19 Olanzapine 10 Mg Tablet PO 10 mg BEDTIME SONIA Administration Pioglitazone HCl 15 mg 10/28/20 09:00 12/16/20 09:08 Pioglitazone Hcl 15 Mg Tablet PO 15 mg DAILY SNOIA Administration Risperidone 2 mg 11/27/20 09:00 12/16/20 09:08 Risperidone 2 Mg Tablet PO 2 mg DAILY SONIA Administration Risperidone 2 mg 11/29/20 21:00 12/16/20 20:18 Risperidone 2 Mg Tablet PO 2 mg BEDTIME SONIA Administration Trazodone HCl 100 mg 10/28/20 06:30 12/13/20 23:46 Trazodone Hcl 100 Mg Tablet PO 100 mg BEDTIME PRN Administration Insomnia Allergies Allergies Allergy/AdvReac Type Severity Reaction Status Date / Time haloperidol [From Haldol] AdvReac Unknown Verified 10/28/20 06:32 Assessment & Plan Assessment & Plan (1) Schizoaffective disorder without good prognostic features and with catatonia: Status: Acute Code(s): F25.9 - Schizoaffective disorder, unspecified; F06.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 (2) HTN (hypertension): Status: Acute Code(s): I10 - Essential (primary) hypertension (3) Diabetes 1.5, managed as type 2: Status: Acute Code(s): E13.9 - Other specified diabetes mellitus without complications Assessment and Plan: Plan continue plan as below: continue low-dose fluoxetine lithium depakote d/c planning as she is she gradually improving continue diabetes treatment [facility] reportedly refused to take patient back in spite of the fact that her mental status is much improved coordinate with social Work and [facility] Greater than 50% of the session was spent on counseling and/or coordination of care Reason for contiued inpatient stay Substantial Risk for: inability to function, rapid decompensation and med/psych decompensation
[2020-12-17 06:21] LABS: Glucose, Whole Blood 146 mg/dL (60-115)
[2020-12-17] MEDS: Levothyroxine Sodium 125 MCG TABLET PO (06:33)
[2020-12-17 06:48] VITALS: BP 130/58; PULSE 74; RESP 16; O2SAT 97
[2020-12-17 07:00] VITALS: BMI 34.9
[2020-12-17 09:22] VITALS: BP 133/90; PULSE 84
[2020-12-17] MEDS: Lithium Carbonate 300 MG TABLET 450 MG PO ×2 (09:22→20:25)
[2020-12-17] MEDS: risperiDONE 2 MG TABLET PO ×2 (09:22→20:25)
[2020-12-17] MEDS: amLODIPine Besylate 10 MG TABLET PO (09:22)
[2020-12-17] MEDS: metFORMIN HCl 500 MG TABLET PO ×2 (09:22→16:52)
[2020-12-17] MEDS: Aspirin Enteric Coated 81 MG TABLET.DR PO (09:23)
[2020-12-17] MEDS: Metoprolol Succinate ER 50 MG TAB.ER.24H PO (09:23)
[2020-12-17] MEDS: FLUoxetine HCl Oral Solution 20 MG/5 ML SOLUTION 5 MG PO (09:23)
[2020-12-17] MEDS: Insulin Glargine,Hum.rec.anlog 100 UNIT/ML 10 ML VIAL 28 UNIT SUBCUT (09:23)
[2020-12-17 12:14] LABS: Glucose, Whole Blood 245 mg/dL (60-115)
[2020-12-17] MEDS: Insulin Lispro 100 UNIT/ML 3 ML VIAL SUBCUT ×2 (12:21→20:45)
[2020-12-17 16:10] VITALS: BP 101/58; PULSE 83; TEMP 36.5
[2020-12-17 16:42] LABS: Glucose, Whole Blood 144 mg/dL (60-115)
[2020-12-17] MEDS: Divalproex Sodium ER 250 MG TAB.ER.24H 1250 MG PO (16:52)
[2020-12-17] MEDS: OLANZapine 10 MG TABLET PO (20:25)
[2020-12-17 20:37] LABS: Glucose, Whole Blood 159 mg/dL (60-115)
[2020-12-18 06:21] LABS: Glucose, Whole Blood 95 mg/dL (60-115)
[2020-12-18] MEDS: Levothyroxine Sodium 125 MCG TABLET PO (06:40)
[2020-12-18 08:29] VITALS: BP 111/65; PULSE 74
[2020-12-18] MEDS: Lithium Carbonate 300 MG TABLET 450 MG PO ×2 (08:29→20:21)
[2020-12-18] MEDS: Aspirin Enteric Coated 81 MG TABLET.DR PO (08:29)
[2020-12-18] MEDS: Metoprolol Succinate ER 50 MG TAB.ER.24H PO (08:29)
[2020-12-18] MEDS: metFORMIN HCl 500 MG TABLET PO ×2 (08:29→16:53)
[2020-12-18] MEDS: risperiDONE 2 MG TABLET PO ×2 (08:29→20:21)
[2020-12-18] MEDS: amLODIPine Besylate 10 MG TABLET PO (08:29)
[2020-12-18] MEDS: FLUoxetine HCl Oral Solution 20 MG/5 ML SOLUTION 5 MG PO (08:29)
[2020-12-18] MEDS: Insulin Glargine,Hum.rec.anlog 100 UNIT/ML 10 ML VIAL 28 UNIT SUBCUT (08:31)
--- NOTE | 2020-12-18 10:14 | HO.PSYCHPN ---
Subjective Subjective Date of Service: 12/17/20 Reason For Visit: Schizoaffective Disorder acutely psychotic Subjective Notes: Conditional Voluntary Guardianship: Yes Interim History: pt has been gradually improving less lethargic Mental Status Exam Mental Status Exam Narrative: Patient Appearance: Well Grooomed and Appropriate Patient Orientation: Person and Situation Level of Consciousness: Awake Patient Behavior: Appropriate, Anxious and Good Eye Contact Mood Description: Appropriate Affect Description: Appropriate (brighter) Patient Cognition Impaired: Yes Ability to Follow Directions: Fair Speech Pattern: Appropriate Memory Description: Remote Impaired Thought Process: Intact Thought Content: positive for Intact Judgement: Fair Diagnostics Vital Signs (24Hr): Vital Signs - 24 hr 12/17/20 16:10 12/18/20 08:29 Temperature 97.7 F Pulse Rate 83 74 Blood Pressure 101/58 L 111/65 Body Mass Index 34.9 Labs Results: 10/29/20 07:51 12/15/20 07:38 Labs: Laboratory Results - last 48 hr 12/16/20 12/16/20 12/16/20 12:32 16:46 20:13 POC Glucose 118 H 238 H 225 H 12/17/20 12/17/20 12/17/20 06:15 12:11 16:38 POC Glucose 146 H 245 H 144 H 12/17/20 12/18/20 20:33 06:10 POC Glucose 159 H 95 Medications Medications Current Medications Generic Name Dose Route Start Last Admin Trade Name Freq PRN Reason Stop Dose Admin Acetaminophen 650 mg 10/28/20 05:54 12/02/20 19:40 Acetaminophen 325 Mg Tablet PO 650 mg Q6H PRN Administration Headache/Pain Mild Scale (1-3) Al Hydroxide/Mg Hydroxide 30 ml 10/28/20 05:54 Magnesium Hydrox/Alum Hydrox 30 Ml Oral.Susp PO Q6H PRN Heartburn/Nausea Amlodipine Besylate 10 mg 10/28/20 09:00 12/18/20 08:29 Amlodipine Besylate 10 Mg Tablet PO 10 mg DAILY SONIA Administration Artificial Tears 2 drop 11/19/20 13:19 Artificial Tears 15 Ml Drops EYE-BOTH Q4H PRN Dry Eyes Aspirin 81 mg 10/28/20 09:00 12/18/20 08:29 Aspirin Enteric Coated 81 Mg Tablet.Dr PO 81 mg DAILY SONIA Administration Divalproex Sodium 1,250 mg 11/24/20 18:00 12/17/20 16:52 Divalproex Sodium Er 250 Mg Tab.Er.24h PO 1,250 mg DAILY@1800 SONIA Administration Fluoxetine HCl 5 mg 12/09/20 09:00 12/18/20 08:29 Fluoxetine Hcl Oral Solution 20 Mg/5 Ml Solution PO 5 mg DAILY SONIA Administration Hydroxyzine HCl 50 mg 11/02/20 10:45 11/26/20 00:07 Hydroxyzine Hcl 25 Mg Tablet PO 50 mg BEDTIME PRN Administration Insomnia Insulin Glargine 28 unit 10/31/20 09:00 12/18/20 08:31 Insulin Glargine,Hum.Rec.Anlog 100 Unit/Ml 10 Ml Vial SUBCUT 28 unit DAILY SONIA Administration Insulin Human Lispro 0 unit 10/28/20 21:00 12/18/20 08:34 Insulin Lispro 100 Unit/Ml 3 Ml Vial SUBCUT Not Given [facility] Protocol Levothyroxine Sodium 125 mcg 11/14/20 06:45 12/18/20 06:40 Levothyroxine Sodium 125 Mcg Tablet PO 125 mcg DAILY@0600 SONIA Administration [place] Carbonate 450 mg 12/04/20 09:00 12/18/20 08:29 [place] Carbonate 300 Mg Tablet PO 450 mg BID SONIA Administration Magnesium Hydroxide 30 ml 10/28/20 05:54 11/08/20 17:02 Milk Of Magnesia 30 Ml Oral.Susp PO 30 ml DAILY PRN Administration Constipation Metformin HCl 500 mg 11/18/20 17:00 12/18/20 08:29 Metformin Hcl 500 Mg Tablet PO 500 mg BIDWM SONIA Administration Metoprolol Succinate 50 mg 10/28/20 09:00 12/18/20 08:29 Metoprolol Succinate Er 50 Mg Tab.Er.24h PO 50 mg DAILY SONIA Administration Olanzapine 5 mg 11/26/20 14:43 11/29/20 12:25 Olanzapine Odt 10 Mg Tab.Rapdis TRANSLINGU 5 mg TID PRN Administration Psychosis Olanzapine 10 mg 12/04/20 21:00 12/17/20 20:25 Olanzapine 10 Mg Tablet PO 10 mg BEDTIME SONIA Administration Pioglitazone HCl 15 mg 10/28/20 09:00 12/18/20 08:29 Pioglitazone Hcl 15 Mg Tablet PO 15 mg DAILY SONIA Administration Risperidone 2 mg 11/27/20 09:00 12/18/20 08:29 Risperidone 2 Mg Tablet PO 2 mg DAILY SONIA Administration Risperidone 2 mg 11/29/20 21:00 12/17/20 20:25 Risperidone 2 Mg Tablet PO 2 mg BEDTIME SONIA Administration Trazodone HCl 100 mg 10/28/20 06:30 12/13/20 23:46 Trazodone Hcl 100 Mg Tablet PO 100 mg BEDTIME PRN Administration Insomnia Allergies Allergies Allergy/AdvReac Type Severity Reaction Status Date / Time haloperidol [From Haldol] AdvReac Unknown Verified 10/28/20 06:32 Assessment & Plan Assessment & Plan (1) Schizoaffective disorder without good prognostic features and with catatonia: Status: Acute Code(s): F25.9 - Schizoaffective disorder, unspecified; F06.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 (2) HTN (hypertension): Status: Acute Code(s): I10 - Essential (primary) hypertension (3) Diabetes 1.5, managed as type 2: Status: Acute Code(s): E13.9 - Other specified diabetes mellitus without complications Assessment and Plan: Plan continue plan as below: continue low-dose fluoxetine lithium depakote d/c planning as she is she gradually improving continue diabetes treatment [facility] reportedly refused to take patient back in spite of the fact that her mental status is much improved coordinate with social Work and [facility] Greater than 50% of the session was spent on counseling and/or coordination of care Reason for contiued inpatient stay Substantial Risk for: harm to self, inability to function and rapid decompensation
--- NOTE | 2020-12-18 10:25 | P.PNPSI_ITS ---
Subjective Subjective Date of Service: 12/17/20 Reason For Visit: Schizoaffective Disorder acutely psychotic Subjective Notes: Conditional Voluntary Guardianship: Yes Interim History: pt more alert no active self harm mood improving better info processing Mental Status Exam Mental Status Exam Narrative: Patient Appearance: Well Grooomed and Appropriate Patient Orientation: Person and Situation Level of Consciousness: Awake Patient Behavior: Appropriate, Anxious and Good Eye Contact Mood Description: Appropriate Affect Description: Appropriate (brighter) Patient Cognition Impaired: Yes Ability to Follow Directions: Fair Speech Pattern: Appropriate Memory Description: Remote Impaired Thought Process: Intact Thought Content: positive for Intact Depressive Symptoms: Increased Anxiety and Increased Fatigue Judgement: Fair Judgement and Insight: improved impulse control Diagnostics Vital Signs (24Hr): Vital Signs - 24 hr 12/17/20 16:10 12/18/20 08:29 Temperature 97.7 F Pulse Rate 83 74 Blood Pressure 101/58 L 111/65 Body Mass Index 34.9 Labs Results: 10/29/20 07:51 12/15/20 07:38 Labs: Laboratory Results - last 48 hr 12/16/20 12/16/20 12/16/20 12:32 16:46 20:13 POC Glucose 118 H 238 H 225 H 12/17/20 12/17/20 12/17/20 06:15 12:11 16:38 POC Glucose 146 H 245 H 144 H 12/17/20 12/18/20 20:33 06:10 POC Glucose 159 H 95 Medications Medications Current Medications Generic Name Dose Route Start Last Admin Trade Name Freq PRN Reason Stop Dose Admin Acetaminophen 650 mg 10/28/20 05:54 12/02/20 19:40 Acetaminophen 325 Mg Tablet PO 650 mg Q6H PRN Administration Headache/Pain Mild Scale (1-3) Al Hydroxide/Mg Hydroxide 30 ml 10/28/20 05:54 Magnesium Hydrox/Alum Hydrox 30 Ml Oral.Susp PO Q6H PRN Heartburn/Nausea Amlodipine Besylate 10 mg 10/28/20 09:00 12/18/20 08:29 Amlodipine Besylate 10 Mg Tablet PO 10 mg DAILY SONIA Administration Artificial Tears 2 drop 11/19/20 13:19 Artificial Tears 15 Ml Drops EYE-BOTH Q4H PRN Dry Eyes Aspirin 81 mg 10/28/20 09:00 12/18/20 08:29 Aspirin Enteric Coated 81 Mg Tablet. PO 81 mg DAILY SONIA Administration Divalproex Sodium 1,250 mg 11/24/20 18:00 12/17/20 16:52 Divalproex Sodium Er 250 Mg Tab.Er.24h PO 1,250 mg DAILY@1800 SONIA Administration Fluoxetine HCl 5 mg 12/09/20 09:00 12/18/20 08:29 Fluoxetine Hcl Oral Solution 20 Mg/5 Ml Solution PO 5 mg DAILY SONIA Administration Hydroxyzine HCl 50 mg 11/02/20 10:45 11/26/20 00:07 Hydroxyzine Hcl 25 Mg Tablet PO 50 mg BEDTIME PRN Administration Insomnia Insulin Glargine 28 unit 10/31/20 09:00 12/18/20 08:31 Insulin Glargine,Hum.Rec.Anlog 100 Unit/Ml 10 Ml Vial SUBCUT 28 unit DAILY SONIA Administration Insulin Human Lispro 0 unit 10/28/20 21:00 12/18/20 08:34 Insulin Lispro 100 Unit/Ml 3 Ml Vial SUBCUT Not Given [facility] Protocol Levothyroxine Sodium 125 mcg 11/14/20 06:45 12/18/20 06:40 Levothyroxine Sodium 125 Mcg Tablet PO 125 mcg DAILY@0600 SONIA Administration [place] Carbonate 450 mg 12/04/20 09:00 12/18/20 08:29 [place] Carbonate 300 Mg Tablet PO 450 mg BID SONIA Administration Magnesium Hydroxide 30 ml 10/28/20 05:54 11/08/20 17:02 Milk Of Magnesia 30 Ml Oral.Susp PO 30 ml DAILY PRN Administration Constipation Metformin HCl 500 mg 11/18/20 17:00 12/18/20 08:29 Metformin Hcl 500 Mg Tablet PO 500 mg BIDWM SONIA Administration Metoprolol Succinate 50 mg 10/28/20 09:00 12/18/20 08:29 Metoprolol Succinate Er 50 Mg Tab.Er.24h PO 50 mg DAILY SONIA Administration Olanzapine 5 mg 11/26/20 14:43 11/29/20 12:25 Olanzapine Odt 10 Mg Tab.Rapdis TRANSLINGU 5 mg TID PRN Administration Psychosis Olanzapine 10 mg 12/04/20 21:00 12/17/20 20:25 Olanzapine 10 Mg Tablet PO 10 mg BEDTIME SONIA Administration Pioglitazone HCl 15 mg 10/28/20 09:00 12/18/20 08:29 Pioglitazone Hcl 15 Mg Tablet PO 15 mg DAILY SONIA Administration Risperidone 2 mg 11/27/20 09:00 07/09/21 08:29 Risperidone 2 Mg Tablet PO 2 mg DAILY SONIA Administration Risperidone 2 mg 11/29/20 21:00 12/17/20 20:25 Risperidone 2 Mg Tablet PO 2 mg BEDTIME SONIA Administration Trazodone HCl 100 mg 10/28/20 06:30 12/13/20 23:46 Trazodone Hcl 100 Mg Tablet PO 100 mg BEDTIME PRN Administration Insomnia Allergies Allergies Allergy/AdvReac Type Severity Reaction Status Date / Time haloperidol [From Haldol] AdvReac Unknown Verified 10/28/20 06:32 Assessment & Plan Assessment & Plan (1) Schizoaffective disorder without good prognostic features and with catatonia: Status: Acute Code(s): F25.9 - Schizoaffective disorder, unspecified; F06.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 (2) HTN (hypertension): Status: Acute Code(s): I10 - Essential (primary) hypertension (3) Diabetes 1.5, managed as type 2: Status: Acute Code(s): E13.9 - Other specified diabetes mellitus without complications Assessment and Plan: Plan continue plan as below: continue low-dose fluoxetine lithium depakote d/c planning as she is she gradually improving continue diabetes treatment [facility] reportedly refused to take patient back in spite of the fact that her mental status is much improved coordinate with social Work and [facility] referrals made coordinate with [facility] Greater than 50% of the session was spent on counseling and/or coordination of care Reason for contiued inpatient stay Substantial Risk for: inability to function and rapid decompensation
--- NOTE | 2020-12-18 10:29 | P.PNPSI_ITS ---
Subjective Subjective Date of Service: 12/19/20 Reason For Visit: Schizoaffective Disorder acutely psychotic Subjective Notes: Conditional Voluntary Guardianship: Yes Interim History: Patient has been accepted to assisted facility. Range mints could not be made for today. Patient somewhat flat but engage in interaction active no gross paranoia Medication Compliance: Yes Side effects from medications: No Mental Status Exam Mental Status Exam Narrative: Patient Appearance: Well Grooomed and Appropriate Patient Orientation: Person and Situation Level of Consciousness: Awake Patient Behavior: Appropriate, Anxious and Good Eye Contact Mood Description: Appropriate Affect Description: Appropriate (brighter) Patient Cognition Impaired: Yes Ability to Follow Directions: Fair Speech Pattern: Appropriate Memory Description: Remote Impaired Thought Process: Intact Thought Content: positive for Intact Depressive Symptoms: Increased Anxiety and Increased Fatigue Judgement: Fair Judgement and Insight: improved impulse control Diagnostics Vital Signs (24Hr): Vital Signs - 24 hr 12/17/20 16:10 12/18/20 08:29 Temperature 97.7 F Pulse Rate 83 74 Blood Pressure 101/58 L 111/65 Body Mass Index 34.9 Labs Results: 10/29/20 07:51 12/15/20 07:38 Labs: Laboratory Results - last 48 hr 12/16/20 12/16/20 12/16/20 12:32 16:46 20:13 POC Glucose 118 H 238 H 225 H 12/17/20 12/17/20 12/17/20 06:15 12:11 16:38 POC Glucose 146 H 245 H 144 H 12/17/20 12/18/20 20:33 06:10 POC Glucose 159 H 95 Medications Medications Current Medications Generic Name Dose Route Start Last Admin Trade Name Freq PRN Reason Stop Dose Admin Acetaminophen 650 mg 10/28/20 05:54 12/02/20 19:40 Acetaminophen 325 Mg Tablet PO 650 mg Q6H PRN Administration Headache/Pain Mild Scale (1-3) Al Hydroxide/Mg Hydroxide 30 ml 10/28/20 05:54 Magnesium Hydrox/Alum Hydrox 30 Ml Oral.Susp PO Q6H PRN Heartburn/Nausea Amlodipine Besylate 10 mg 10/28/20 09:00 12/18/20 08:29 Amlodipine Besylate 10 Mg Tablet PO 10 mg DAILY SONIA Administration Artificial Tears 2 drop 11/19/20 13:19 Artificial Tears 15 Ml Drops EYE-BOTH Q4H PRN Dry Eyes Aspirin 81 mg 10/28/20 09:00 12/18/20 08:29 Aspirin Enteric Coated 81 Mg Tablet.Dr PO 81 mg DAILY SONIA Administration Divalproex Sodium 1,250 mg 11/24/20 18:00 12/17/20 16:52 Divalproex Sodium Er 250 Mg Tab.Er.24h PO 1,250 mg DAILY@1800 SONIA Administration Fluoxetine HCl 5 mg 12/09/20 09:00 12/18/20 08:29 Fluoxetine Hcl Oral Solution 20 Mg/5 Ml Solution PO 5 mg DAILY SONIA Administration Hydroxyzine HCl 50 mg 11/02/20 10:45 11/26/20 00:07 Hydroxyzine Hcl 25 Mg Tablet PO 50 mg BEDTIME PRN Administration Insomnia Insulin Glargine 28 unit 10/31/20 09:00 12/18/20 08:31 Insulin Glargine,Hum.Rec.Anlog 100 Unit/Ml 10 Ml Vial SUBCUT 28 unit DAILY SONIA Administration Insulin Human Lispro 0 unit 10/28/20 21:00 12/18/20 08:34 Insulin Lispro 100 Unit/Ml 3 Ml Vial SUBCUT Not Given [facility] Protocol Levothyroxine Sodium 125 mcg 11/14/20 06:45 12/18/20 06:40 Levothyroxine Sodium 125 Mcg Tablet PO 125 mcg DAILY@0600 SONIA Administration [place] Carbonate 450 mg 12/04/20 09:00 12/18/20 08:29 [place] Carbonate 300 Mg Tablet PO 450 mg BID SONIA Administration Magnesium Hydroxide 30 ml 10/28/20 05:54 11/08/20 17:02 Milk Of Magnesia 30 Ml Oral.Susp PO 30 ml DAILY PRN Administration Constipation Metformin HCl 500 mg 11/18/20 17:00 12/18/20 08:29 Metformin Hcl 500 Mg Tablet PO 500 mg BIDWM SONIA Administration Metoprolol Succinate 50 mg 10/28/20 09:00 12/18/20 08:29 Metoprolol Succinate Er 50 Mg Tab.Er.24h PO 50 mg DAILY SONIA Administration Olanzapine 5 mg 11/26/20 14:43 11/29/20 12:25 Olanzapine Odt 10 Mg Tab.Rapdis TRANSLINGU 5 mg TID PRN Administration Psychosis Olanzapine 10 mg 12/04/20 21:00 12/17/20 20:25 Olanzapine 10 Mg Tablet PO 10 mg BEDTIME SONIA Administration Pioglitazone HCl 15 mg 10/28/20 09:00 07/09/21 08:29 Pioglitazone Hcl 15 Mg Tablet PO 15 mg DAILY SONIA Administration Risperidone 2 mg 11/27/20 09:00 12/18/20 08:29 Risperidone 2 Mg Tablet PO 2 mg DAILY SONIA Administration Risperidone 2 mg 11/29/20 21:00 12/17/20 20:25 Risperidone 2 Mg Tablet PO 2 mg BEDTIME SONIA Administration Trazodone HCl 100 mg 10/28/20 06:30 12/13/20 23:46 Trazodone Hcl 100 Mg Tablet PO 100 mg BEDTIME PRN Administration Insomnia Allergies Allergies Allergy/AdvReac Type Severity Reaction Status Date / Time haloperidol [From Haldol] AdvReac Unknown Verified 10/28/20 06:32 Assessment & Plan Assessment & Plan (1) Schizoaffective disorder without good prognostic features and with catatonia: Status: Acute Code(s): F25.9 - Schizoaffective disorder, unspecified; F06.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 (2) HTN (hypertension): Status: Acute Code(s): I10 - Essential (primary) hypertension (3) Diabetes 1.5, managed as type 2: Status: Acute Code(s): E13.9 - Other specified diabetes mellitus without complications Assessment and Plan: Plan continue plan as below: continue low-dose fluoxetine lithium depakote d/c planning as she is she gradually improving continue diabetes treatment Patient has been accepted at assisted facility referral made Greater than 50% of the session was spent on counseling and/or coordination of care Reason for contiued inpatient stay Substantial Risk for: inability to function and rapid decompensation
[2020-12-18 12:25] LABS: Glucose, Whole Blood 80 mg/dL (60-115)
[2020-12-18 16:06] VITALS: BP 121/57; PULSE 75; TEMP 36.7
[2020-12-18 16:32] LABS: Glucose, Whole Blood 147 mg/dL (60-115)
[2020-12-18] MEDS: Divalproex Sodium ER 250 MG TAB.ER.24H 1250 MG PO (16:53)
[2020-12-18] MEDS: OLANZapine 10 MG TABLET PO (20:20)
[2020-12-18 22:17] LABS: Glucose, Whole Blood 150 mg/dL (60-115)
[2020-12-19] MEDS: Levothyroxine Sodium 125 MCG TABLET PO (06:22)
[2020-12-19 06:50] VITALS: BP 149/73; PULSE 93; RESP 18; O2SAT 98
[2020-12-19 06:57] LABS: Glucose, Whole Blood 150 mg/dL (60-115)
[2020-12-19 06:57] LABS: Glucose, Whole Blood 69 mg/dL (60-115)
[2020-12-19 09:05] VITALS: BP 149/73; PULSE 93
[2020-12-19] MEDS: Metoprolol Succinate ER 50 MG TAB.ER.24H PO (09:05)
[2020-12-19] MEDS: FLUoxetine HCl Oral Solution 20 MG/5 ML SOLUTION 5 MG PO (09:05)
[2020-12-19] MEDS: Aspirin Enteric Coated 81 MG TABLET.DR PO (09:05)
[2020-12-19] MEDS: amLODIPine Besylate 10 MG TABLET PO (09:05)
[2020-12-19] MEDS: Lithium Carbonate 300 MG TABLET 450 MG PO ×2 (09:06→19:57)
[2020-12-19] MEDS: risperiDONE 2 MG TABLET PO ×2 (09:06→19:57)
[2020-12-19] MEDS: metFORMIN HCl 500 MG TABLET PO ×2 (09:06→16:51)
[2020-12-19] MEDS: Insulin Glargine,Hum.rec.anlog 100 UNIT/ML 10 ML VIAL 28 UNIT SUBCUT (09:10)
[2020-12-19 12:18] LABS: Glucose, Whole Blood 131 mg/dL (60-115)
[2020-12-19 16:20] VITALS: BP 117/59; PULSE 80; TEMP 37
[2020-12-19 16:33] LABS: Glucose, Whole Blood 113 mg/dL (60-115)
[2020-12-19] MEDS: Divalproex Sodium ER 250 MG TAB.ER.24H 1250 MG PO (16:51)
[2020-12-19] MEDS: OLANZapine 10 MG TABLET PO (19:57)
[2020-12-19 20:45] LABS: Glucose, Whole Blood 130 mg/dL (60-115)
--- NOTE | 2020-12-19 22:00 | P.PNPSI_ITS ---
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 She is looking forward to discharge monday, however says she'd prefer to go to her a[facility] instead of [facility]. Pt has no requests. Mental Status Exam Mental Status Exam Narrative: Patient Appearance: appropriately Grooomed, casual cloths; lying in bed Patient Orientation: alert and oriented Patient Behavior: Appropriate,Good Eye Contact Mood Description: good Affect Description: Appropriate (brighter) Patient Cognition Impaired: Yes Ability to Follow Directions: Fair Speech Pattern: Appropriate Memory Description: Remote Impaired Thought Process: Intact Thought Content: no SI or HI Judgement and Insight: fair ;improved impulse control Diagnostics Vital Signs (24Hr): Vital Signs - 24 hr 12/19/20 06:50 12/19/20 09:05 12/19/20 16:20 Temperature 98.6 F Pulse Rate 93 93 80 Respiratory Rate 18 Blood Pressure 149/73 H 149/73 H 117/59 L Pulse Oximetry 98 Body Mass Index 34.9 Labs Results: 10/29/20 07:51 12/15/20 07:38 Labs: Laboratory Results - last 48 hr 12/18/20 12/18/20 12/18/20 06:10 12:22 16:28 POC Glucose 95 80 147 H 12/18/20 12/19/20 12/19/20 21:07 06:24 06:48 POC Glucose 150 H 69 150 H 12/19/20 12/19/20 12/19/20 12:13 16:29 20:01 POC Glucose 131 H 113 130 H Medications Medications Current Medications Generic Name Dose Route Start Last Admin Trade Name Freq PRN Reason Stop Dose Admin Acetaminophen 650 mg 10/28/20 05:54 12/02/20 19:40 Acetaminophen 325 Mg Tablet PO 650 mg Q6H PRN Administration Headache/Pain Mild Scale (1-3) Al Hydroxide/Mg Hydroxide 30 ml 10/28/20 05:54 Magnesium Hydrox/Alum Hydrox 30 Ml Oral.Susp PO Q6H PRN Heartburn/Nausea Amlodipine Besylate 10 mg 10/28/20 09:00 12/19/20 09:05 Amlodipine Besylate 10 Mg Tablet PO 10 mg DAILY SONIA Administration Artificial Tears 2 drop 06/10/21 13:19 Artificial Tears 15 Ml Drops EYE-BOTH Q4H PRN Dry Eyes Aspirin 81 mg 10/28/20 09:00 12/19/20 09:05 Aspirin Enteric Coated 81 Mg Tablet.Dr PO 81 mg DAILY SONIA Administration Divalproex Sodium 1,250 mg 11/24/20 18:00 12/19/20 16:51 Divalproex Sodium Er 250 Mg Tab.Er.24h PO 1,250 mg DAILY@1800 SONIA Administration Fluoxetine HCl 5 mg 12/09/20 09:00 12/19/20 09:05 Fluoxetine Hcl Oral Solution 20 Mg/5 Ml Solution PO 5 mg DAILY SONIA Administration Hydroxyzine HCl 50 mg 11/02/20 10:45 11/26/20 00:07 Hydroxyzine Hcl 25 Mg Tablet PO 50 mg BEDTIME PRN Administration Insomnia Insulin Glargine 28 unit 10/31/20 09:00 12/19/20 09:10 Insulin Glargine,Hum.Rec.Anlog 100 Unit/Ml 10 Ml Vial SUBCUT 28 unit DAILY SONIA Administration Insulin Human Lispro 0 unit 10/28/20 21:00 12/19/20 20:09 Insulin Lispro 100 Unit/Ml 3 Ml Vial SUBCUT Not Given [facility] Protocol Levothyroxine Sodium 125 mcg 11/14/20 06:45 12/19/20 06:22 Levothyroxine Sodium 125 Mcg Tablet PO 125 mcg DAILY@0600 SONIA Administration [place] Carbonate 450 mg 12/04/20 09:00 12/19/20 19:57 [place] Carbonate 300 Mg Tablet PO 450 mg BID SONIA Administration Magnesium Hydroxide 30 ml 10/28/20 05:54 11/08/20 17:02 Milk Of Magnesia 30 Ml Oral.Susp PO 30 ml DAILY PRN Administration Constipation Metformin HCl 500 mg 11/18/20 17:00 12/19/20 16:51 Metformin Hcl 500 Mg Tablet PO 500 mg BIDWM SONIA Administration Metoprolol Succinate 50 mg 10/28/20 09:00 12/19/20 09:05 Metoprolol Succinate Er 50 Mg Tab.Er.24h PO 50 mg DAILY SONIA Administration Olanzapine 5 mg 11/26/20 14:43 11/29/20 12:25 Olanzapine Odt 10 Mg Tab.Rapdis TRANSLINGU 5 mg TID PRN Administration Psychosis Olanzapine 10 mg 12/04/20 21:00 12/19/20 19:57 Olanzapine 10 Mg Tablet PO 10 mg BEDTIME SONIA Administration Pioglitazone HCl 15 mg 10/28/20 09:00 12/19/20 09:05 Pioglitazone Hcl 15 Mg Tablet PO 15 mg DAILY SONIA Administration Risperidone 2 mg 11/27/20 09:00 12/19/20 09:06 Risperidone 2 Mg Tablet PO 2 mg DAILY SONIA Administration Risperidone 2 mg 11/29/20 21:00 12/19/20 19:57 Risperidone 2 Mg Tablet PO 2 mg BEDTIME SONIA Administration Trazodone HCl 100 mg 10/28/20 06:30 12/13/20 23:46 Trazodone Hcl 100 Mg Tablet PO 100 mg BEDTIME PRN Administration Insomnia Allergies Allergies Allergy/AdvReac Type Severity Reaction Status Date / Time haloperidol [From Haldol] AdvReac Unknown Verified 10/28/20 06:32 Assessment & Plan Assessment & Plan (1) Schizoaffective disorder without good prognostic features and with catatonia: Status: Acute Code(s): F25.9 - Schizoaffective disorder, unspecified; F06.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 (2) HTN (hypertension): Status: Acute Code(s): I10 - Essential (primary) hypertension (3) Diabetes 1.5, managed as type 2: Status: Acute Code(s): E13.9 - Other specified diabetes mellitus without complications Assessment and Plan: 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
[2020-12-20] MEDS: Levothyroxine Sodium 125 MCG TABLET PO (06:35)
[2020-12-20 06:42] VITALS: BP 137/63; PULSE 75; RESP 16; TEMP 36.4; O2SAT 98
[2020-12-20 06:46] LABS: Glucose, Whole Blood 91 mg/dL (60-115)
[2020-12-20 08:19] VITALS: BP 122/74; PULSE 84
[2020-12-20] MEDS: FLUoxetine HCl Oral Solution 20 MG/5 ML SOLUTION 5 MG PO (08:19)
[2020-12-20] MEDS: amLODIPine Besylate 10 MG TABLET PO (08:19)
[2020-12-20] MEDS: risperiDONE 2 MG TABLET PO ×2 (08:20→20:09)
[2020-12-20] MEDS: Insulin Glargine,Hum.rec.anlog 100 UNIT/ML 10 ML VIAL 28 UNIT SUBCUT (08:20)
[2020-12-20] MEDS: Metoprolol Succinate ER 50 MG TAB.ER.24H PO (08:20)
[2020-12-20] MEDS: Aspirin Enteric Coated 81 MG TABLET.DR PO (08:20)
[2020-12-20] MEDS: Lithium Carbonate 300 MG TABLET 450 MG PO ×2 (08:20→20:09)
[2020-12-20] MEDS: metFORMIN HCl 500 MG TABLET PO ×2 (08:20→17:28)
[2020-12-20 12:20] LABS: Glucose, Whole Blood 150 mg/dL (60-115)
[2020-12-20 16:20] VITALS: BP 141/82; PULSE 85; TEMP 36.2
[2020-12-20 16:52] LABS: Glucose, Whole Blood 313 mg/dL (60-115)
[2020-12-20] MEDS: Insulin Lispro 100 UNIT/ML 3 ML VIAL SUBCUT ×2 (17:28→20:15)
[2020-12-20] MEDS: Divalproex Sodium ER 250 MG TAB.ER.24H 1250 MG PO (17:28)
[2020-12-20 20:00] LABS: Glucose, Whole Blood 204 mg/dL (60-115)
[2020-12-20] MEDS: OLANZapine 10 MG TABLET PO (20:09)
[2020-12-20] MEDS: traZODone HCL 100 MG TABLET PO (20:15)
--- NOTE | 2020-12-20 20:38 | P.PNPSI_ITS ---
Subjective Subjective Date of Service: 12/20/20 Reason For Visit: Schizoaffective Disorder acutely psychotic Interim History: italian interp present pt reports she's good and denies any SI or HI or AVH. She is looking forward to discharge tomorrow. She reports sleeping well; pt denies any complaints and has no requests. Mental Status Exam Mental Status Exam Narrative: Patient Appearance: appropriately Groomed, casual cloths; lying in bed Patient Orientation: alert and oriented Patient Behavior: Appropriate,Good Eye Contact Mood Description: good Affect Description: Appropriate (bright, smiles appropriately) Patient Cognition Impaired: Yes Ability to Follow Directions: Fair Speech Pattern: Appropriate Memory Description: Remote Impaired Thought Process: Intact Thought Content: no SI or HI Judgment and Insight: fair ;improved impulse control Diagnostics Vital Signs (24Hr): Vital Signs - 24 hr 12/20/20 06:42 12/20/20 08:19 12/20/20 16:20 Temperature 97.6 F 97.1 F Pulse Rate 75 84 85 Respiratory Rate 16 Blood Pressure 137/63 122/74 141/82 H Pulse Oximetry 98 Body Mass Index 34.9 Labs Results: 10/29/20 07:51 12/15/20 07:38 Labs: Laboratory Results - last 48 hr 12/18/20 12/19/20 12/19/20 21:07 06:24 06:48 POC Glucose 150 H 69 150 H 12/19/20 12/19/20 12/19/20 12:13 16:29 20:01 POC Glucose 131 H 113 130 H 12/20/20 12/20/20 12/20/20 06:39 12:15 16:45 POC Glucose 91 150 H 313 H 12/20/20 19:56 POC Glucose 204 H Medications Medications Current Medications Generic Name Dose Route Start Last Admin Trade Name Freq PRN Reason Stop Dose Admin Acetaminophen 650 mg 10/28/20 05:54 12/02/20 19:40 Acetaminophen 325 Mg Tablet PO 650 mg Q6H PRN Administration Headache/Pain Mild Scale (1-3) Al Hydroxide/Mg Hydroxide 30 ml 10/28/20 05:54 Magnesium Hydrox/Alum Hydrox 30 Ml Oral.Susp PO Q6H PRN Heartburn/Nausea Amlodipine Besylate 10 mg 10/28/20 09:00 12/20/20 08:19 Amlodipine Besylate 10 Mg Tablet PO 10 mg DAILY SONIA Administration Artificial Tears 2 drop 11/19/20 13:19 Artificial Tears 15 Ml Drops EYE-BOTH Q4H PRN Dry Eyes Aspirin 81 mg 10/28/20 09:00 12/20/20 08:20 Aspirin Enteric Coated 81 Mg Tablet.Dr PO 81 mg DAILY SONIA Administration Divalproex Sodium 1,250 mg 11/24/20 18:00 12/20/20 17:28 Divalproex Sodium Er 250 Mg Tab.Er.24h PO 1,250 mg DAILY@1800 SONIA Administration Fluoxetine HCl 5 mg 12/09/20 09:00 12/20/20 08:19 Fluoxetine Hcl Oral Solution 20 Mg/5 Ml Solution PO 5 mg DAILY SONIA Administration Hydroxyzine HCl 50 mg 11/02/20 10:45 11/26/20 00:07 Hydroxyzine Hcl 25 Mg Tablet PO 50 mg BEDTIME PRN Administration Insomnia Insulin Glargine 28 unit 10/31/20 09:00 12/20/20 08:20 Insulin Glargine,Hum.Rec.Anlog 100 Unit/Ml 10 Ml Vial SUBCUT 28 unit DAILY SONIA Administration Insulin Human Lispro 0 unit 10/28/20 21:00 12/20/20 20:15 Insulin Lispro 100 Unit/Ml 3 Ml Vial SUBCUT 4 unit QIDACHS SONIA Administration Protocol Levothyroxine Sodium 125 mcg 11/14/20 06:45 12/20/20 06:35 Levothyroxine Sodium 125 Mcg Tablet PO 125 mcg DAILY@0600 SONIA Administration [place] Carbonate 450 mg 12/04/20 09:00 12/20/20 20:09 [place] Carbonate 300 Mg Tablet PO 450 mg BID SONIA Administration Magnesium Hydroxide 30 ml 10/28/20 05:54 11/08/20 17:02 Milk Of Magnesia 30 Ml Oral.Susp PO 30 ml DAILY PRN Administration Constipation Metformin HCl 500 mg 11/18/20 17:00 12/20/20 17:28 Metformin Hcl 500 Mg Tablet PO 500 mg BIDWM SONIA Administration Metoprolol Succinate 50 mg 10/28/20 09:00 12/20/20 08:20 Metoprolol Succinate Er 50 Mg Tab.Er.24h PO 50 mg DAILY SONIA Administration Olanzapine 5 mg 11/26/20 14:43 11/29/20 12:25 Olanzapine Odt 10 Mg Tab.Rapdis TRANSLINGU 5 mg TID PRN Administration Psychosis Olanzapine 10 mg 12/04/20 21:00 12/20/20 20:09 Olanzapine 10 Mg Tablet PO 10 mg BEDTIME SONIA Administration Pioglitazone HCl 15 mg 10/28/20 09:00 12/20/20 08:20 Pioglitazone Hcl 15 Mg Tablet PO 15 mg DAILY SONIA Administration Risperidone 2 mg 11/27/20 09:00 12/20/20 08:20 Risperidone 2 Mg Tablet PO 2 mg DAILY SONIA Administration Risperidone 2 mg 11/29/20 21:00 12/20/20 20:09 Risperidone 2 Mg Tablet PO 2 mg BEDTIME SONIA Administration Trazodone HCl 100 mg 10/28/20 06:30 12/20/20 20:15 Trazodone Hcl 100 Mg Tablet PO 100 mg BEDTIME PRN Administration Insomnia Allergies Allergies Allergy/AdvReac Type Severity Reaction Status Date / Time haloperidol [From Haldol] AdvReac Unknown Verified 10/28/20 06:32 Assessment & Plan Assessment & Plan (1) Schizoaffective disorder without good prognostic features and with catatonia: Status: Acute Code(s): F25.9 - Schizoaffective disorder, unspecified; F06.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 (2) HTN (hypertension): Status: Acute Code(s): I10 - Essential (primary) hypertension (3) Diabetes 1.5, managed as type 2: Status: Acute Code(s): E13.9 - Other specified diabetes mellitus without complications Assessment and Plan: 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
[2020-12-21] MEDS: Levothyroxine Sodium 125 MCG TABLET PO (06:44)
[2020-12-21 06:53] LABS: Glucose, Whole Blood 110 mg/dL (60-115)
[2020-12-21 08:53] VITALS: BP 131/78; PULSE 90
[2020-12-21] MEDS: amLODIPine Besylate 10 MG TABLET PO (08:53)
[2020-12-21] MEDS: Aspirin Enteric Coated 81 MG TABLET.DR PO (08:54)
[2020-12-21] MEDS: Lithium Carbonate 300 MG TABLET 450 MG PO (08:54)
[2020-12-21] MEDS: risperiDONE 2 MG TABLET PO (08:55)
[2020-12-21 08:56] VITALS: BP 131/78; PULSE 90
[2020-12-21] MEDS: Metoprolol Succinate ER 50 MG TAB.ER.24H PO (08:56)
[2020-12-21] MEDS: Insulin Glargine,Hum.rec.anlog 100 UNIT/ML 10 ML VIAL 28 UNIT SUBCUT (08:56)
[2020-12-21] MEDS: metFORMIN HCl 500 MG TABLET PO (08:56)
[2020-12-21 09:00] VITALS: BP 131/78; PULSE 90; TEMP 36.3; O2SAT 97
[2020-12-21] MEDS: FLUoxetine HCl Oral Solution 20 MG/5 ML SOLUTION 5 MG PO (09:12)
[2020-12-21 12:41] LABS: Glucose, Whole Blood 142 mg/dL (60-115)
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
== END 2020-12-21 13:10 | DRG 885 ==
PROVIDERS: Clinical Nurse Specialist Psychiatric/Mental Health; Physician Assistant Medical; Admitting Provider Psychiatry & Neurology Psychiatry; Visit Provider Psychiatry & Neurology Psychiatry
DX: F25.9 Schizoaffective disorder, unspecified (principal); E78.5 Hyperlipidemia, unspecified; E03.9 Hypothyroidism, unspecified; K21.9 Gastro-esophageal reflux disease without esophagitis; E13.9 Other specified diabetes mellitus without complications; F06.1 Catatonic disorder due to known physiological condition; Z79.4 Long term (current) use of insulin; Z79.890 Hormone replacement therapy; Z79.899 Other long term (current) drug therapy
CPT/HCPCS: 36415; 80048; 80053; 80061; 80164; 80178; 81001; 82565; 82607; 82746; 82947; 83036; 84439; 84443; 85025; 86780; 87086; 93005; 97162; 99222; 99232

== ENCOUNTER 2023-07-05 20:17 | Inpatient (IN) | payer MEDICARE, MEDICAID, SELFPAY ==
[2023-07-05] MEDS: hydrOXYzine HCL 50 MG TABLET PO (22:55)
[2023-07-05] MEDS: traZODone HCL 100 MG TABLET PO (22:55)
[2023-07-05 22:59] VITALS: BP 128/74; PULSE 125; RESP 18; TEMP 36.4; O2SAT 96
[2023-07-06] MEDS: OLANZapine 5 MG TABLET PO (00:57)
[2023-07-06] MEDS: hydrOXYzine HCL 25 MG TABLET PO (00:57)
[2023-07-06] MEDS: traZODone HCL 100 MG TABLET PO (00:57)
[2023-07-06] MEDS: LORazepam 1 MG TABLET PO (04:12)
[2023-07-06 04:13] VITALS: BMI 38.8
[2023-07-06 04:16] VITALS: BMI 38.4
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
[2023-07-06] MEDS: Levothyroxine Sodium 125 MCG TABLET PO (06:31)
[2023-07-06 07:58] LABS: Glucose, Whole Blood 526 mg/dL (60-115)
[2023-07-06] MEDS: Insulin Glargine,Hum.rec.anlog 100 UNIT/ML 10 ML VIAL 28 UNIT SUBCUT (08:14)
[2023-07-06] MEDS: Insulin Lispro 100 UNIT/ML 3 ML VIAL SUBCUT ×4 (08:14→20:12)
[2023-07-06 08:25] VITALS: BP 174/77; PULSE 113; RESP 16; TEMP 36.9; O2SAT 93
[2023-07-06 08:37] LABS: Estimated Average Glucose 206 mg/dL; Hemoglobin A1c % 8.8 % (<6.0)
[2023-07-06] MEDS: risperiDONE 0.5 MG TABLET PO (08:38)
[2023-07-06] MEDS: Propranolol HCL 40 MG TABLET 80 MG PO ×3 (08:38→20:02)
[2023-07-06] MEDS: Escitalopram Oxalate 10 MG TABLET PO (08:38)
[2023-07-06] MEDS: lisinopriL 10 MG TABLET PO (08:38)
[2023-07-06] MEDS: Lithium Carbonate 300 MG CAPSULE PO ×2 (08:38→20:02)
--- NOTE | 2023-07-06 08:58 | PC.NURSE ---
Addendum entered by Adelina Perez RN 07/06/23 08:59: it is reported by staff that pt was not fasting for lab drawn Original Note: chemistry called to report critical lab. Labs reports fasting blood glucose of 629. Provider and assigned nurse notified.
[2023-07-06 08:59] LABS: Glucose Random 629 mg/dL (60-115)
[2023-07-06 09:00] LABS: Alanine Aminotransferase 21 U/L (0-31); Albumin Level 3.9 g/dL (3.5-5.0); Alkaline Phosphatase 95 U/L (39-117); Anion Gap 16 (12-20); Aspartate Amino Transferase 14 U/L (5-31); Bilirubin Total 0.3 mg/dL (0.0-1.0); Blood Urea Nitrogen 11 mg/dL (9-16); Calcium 9.7 mg/dL (8.4-10.2); Carbon Dioxide 25 mmol/L (22-29); Chloride 97 mmol/L (96-108); Cholesterol 156 mg/dL (<200); Creatinine Clr Calc Pharmacy 62.1; Estimated Glomerular Filt Rate 56; HDL Cholesterol 50 mg/dL (>40); LDL Cholesterol Calculated 74 mg/dL (<100); Magnesium 1.5 mg/dL (1.6-2.6); Potassium 4.6 mmol/L (3.3-5.1); Sodium 133 mmol/L (135-145); Total Protein 6.5 g/dL (6.5-8.0); Triglycerides 161 mg/dL (<150)
[2023-07-06 09:07] LABS: Thyroid Stimulating Hormone 6.43 uIU/mL (0.32-4.0)
[2023-07-06 09:20] LABS: Folate 8.5 ng/mL (> or = 4.0); Vitamin B12 504 pg/mL (200-900)
--- NOTE | 2023-07-06 09:34 | PC.NURSE ---
Pts AM POC was 526. Pt received 10 units humalog per sliding scale protocol. Pt also recieved Lantus. Hospitalist Dr Brewster contacted, no additional orders at this time.
[2023-07-06 10:51] VITALS: BMI 39.2
[2023-07-06 12:01] LABS: Glucose, Whole Blood 239 mg/dL (60-115)
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
[2023-07-06 14:13] VITALS: BP 137/60; PULSE 78; O2SAT 96
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
[2023-07-06 17:05] LABS: Glucose, Whole Blood 341 mg/dL (60-115)
[2023-07-06] MEDS: Divalproex Sodium 250 MG TABLET.DR 1250 MG PO (17:15)
[2023-07-06 19:50] VITALS: BP 144/74; PULSE 70; TEMP 36.2
[2023-07-06] MEDS: OLANZapine 10 MG TABLET 20 MG PO (20:03)
[2023-07-06 20:27] LABS: Glucose, Whole Blood 248 mg/dL (60-115)
--- NOTE | 2023-07-07 | ECG_ITS ---
Test Reason : check qt Blood Pressure : / mmHG Vent. Rate : 074 BPM Atrial Rate : 074 BPM P-R Int : 144 ms QRS Dur : 088 ms QT Int : 430 ms P-R-T Axes : 068 038 067 degrees QTc Int : 477 ms Normal sinus rhythm Possible Lateral infarct , age undetermined Abnormal ECG When compared with ECG of 28-OCT-2020 09:31, QT has lengthened Referred By: Whitney Kent Electronically Signed By:Balbir Howard
[2023-07-07] MEDS: traZODone HCL 100 MG TABLET PO (01:51)
[2023-07-07] MEDS: hydrOXYzine HCL 50 MG TABLET PO (01:52)
[2023-07-07] MEDS: hydrOXYzine HCL 25 MG TABLET PO (04:32)
[2023-07-07] MEDS: Levothyroxine Sodium 125 MCG TABLET PO (05:23)
[2023-07-07 07:56] LABS: Glucose, Whole Blood 326 mg/dL (60-115)
[2023-07-07] MEDS: risperiDONE 0.5 MG TABLET PO (08:16)
[2023-07-07] MEDS: Propranolol HCL 40 MG TABLET 80 MG PO ×3 (08:16→20:59)
[2023-07-07] MEDS: Lithium Carbonate 300 MG CAPSULE PO (08:16)
[2023-07-07] MEDS: Magnesium Oxide 400 MG TABLET PO (08:16)
[2023-07-07] MEDS: Escitalopram Oxalate 10 MG TABLET PO (08:16)
[2023-07-07] MEDS: lisinopriL 10 MG TABLET PO (08:16)
[2023-07-07] MEDS: Insulin Lispro 100 UNIT/ML 3 ML VIAL SUBCUT ×4 (08:17→20:57)
[2023-07-07] MEDS: Insulin Glargine,Hum.rec.anlog 100 UNIT/ML 10 ML VIAL 28 UNIT SUBCUT (08:19)
[2023-07-07 08:20] VITALS: BP 122/64; PULSE 67; RESP 18; TEMP 36.4; O2SAT 95
[2023-07-07 08:57] LABS: Lithium 0.58 mmol/L (0.60-1.20)
[2023-07-07 09:01] LABS: Valproate 55.5 mcg/mL (50.0-100.0)
[2023-07-07 12:12] LABS: Glucose, Whole Blood 271 mg/dL (60-115)
[2023-07-07 15:06] VITALS: BP 138/77; PULSE 69
--- NOTE | 2023-07-07 15:29 | HO.PSYCHPN ---
Subjective Subjective Date of Service: 07/07/23 Reason For Visit: Psychosis Subjective Notes: Conditional Voluntary Healthcare Proxy: No Guardianship: No Medical Problems Affecting Mental Status: No Interim History: Sedated today, pleasant, telling all she loves them. She believes we are all relatives. Slept only 3 hours reportedly last evening. Team reports attempting to place her clothing in the toilet and flust. Valproate 55.5, [place] 0.55. Will titrate. Remains on one to one. Medication Compliance: Yes Side effects from medications: No Attending Groups: No Review of Systems Acute medical concerns: No Medical Review of Systems: unchanged Review of Systems Review of Systems Yes all other systems are reviewed and are negative Mental Status Exam Mental Status Exam Patient Appearance: Fatigued Patient Orientation: Person Level of Consciousness: Alert Patient Behavior: Talkative, Distractible and Good Eye Contact Mood Description: Labile Affect Description: Labile Patient Cognition Impaired: Yes Ability to Follow Directions: Fair Speech Pattern: Spontaneous Speech Memory Description: Remote Impaired Hallucinations: Auditory Delusions: Present Thought Process: Illogical and Distracted Thought Content: positive for Flight of Ideas, positive for Racing, positive for Circumstantial, positive for Loose Associations, positive for Thought Blocking (??), positive for Tangential, positive for Disorganized and positive for Suicidal Ideation (denies) Depressive Symptoms: Increased Anxiety and Thoughts of /Suicide (denies) Abnormal Motor Activity Signs and Symptoms: Restlessness Judgement: Poor Diagnostics Vital Signs (24Hr): Vital Signs - 24 hr 07/06/23 19:50 07/07/23 08:20 07/07/23 15:06 Temperature 97.1 F 97.5 F Pulse Rate 70 67 69 Respiratory Rate 18 Blood Pressure 144/74 H 122/64 138/77 Pulse Oximetry 95 Oxygen Delivery Method Room Air BMI result Body Mass Index 39.2 Labs 07/06/23 07:59 Labs: Laboratory Results - last 48 hr 07/06/23 07/06/23 07/06/23 07:54 07:59 11:54 Sodium 133 L Potassium 4.6 Chloride 97 Carbon Dioxide 25 Anion Gap 16 BUN 11 Creatinine 1.01 Estim Creat Clear Calc 62.1 Estimated GFR 56 POC Glucose 526 H* 239 H Random Glucose 629 H* D Fasting Glucose Cancelled Estimat Average Glucose 206 Hemoglobin A1c % 8.8 H Calcium 9.7 Magnesium 1.5 L Total Bilirubin 0.3 AST 14 ALT 21 Alkaline Phosphatase 95 Total Protein 6.5 Albumin 3.9 Triglycerides 161 H Cholesterol 156 LDL Cholesterol, Calc 74 HDL Cholesterol 50 Vitamin B12 504 Folate 8.5 TSH 6.43 H Free T4 1.30 Valproic Acid [place] 07/06/23 07/06/23 07/07/23 16:59 19:57 07:52 Sodium Potassium Chloride Carbon Dioxide Anion Gap BUN Creatinine Estim Creat Clear Calc Estimated GFR POC Glucose 341 H 248 H 326 H Random Glucose Fasting Glucose Estimat Average Glucose Hemoglobin A1c % Calcium Magnesium Total Bilirubin AST ALT Alkaline Phosphatase Total Protein Albumin Triglycerides Cholesterol LDL Cholesterol, Calc HDL Cholesterol Vitamin B12 Folate TSH Free T4 Valproic Acid [place] 07/07/23 07/07/23 07/07/23 08:32 08:32 12:07 Sodium Potassium Chloride Carbon Dioxide Anion Gap BUN Creatinine Estim Creat Clear Calc Estimated GFR POC Glucose 271 H Random Glucose Fasting Glucose Estimat Average Glucose Hemoglobin A1c % Calcium Magnesium Total Bilirubin AST ALT Alkaline Phosphatase Total Protein Albumin Triglycerides Cholesterol LDL Cholesterol, Calc HDL Cholesterol Vitamin B12 Folate TSH Free T4 Valproic Acid 55.5 [place] 0.58 L 0.58 L Medications Medications Current Medications Acetaminophen (Acetaminophen 325 Mg Tablet) 650 mg PO Q6H PRN PRN Reason: Headache/Pain Mild Scale (1-3) Al Hydroxide/Mg Hydroxide (Magnesium Hydrox/Alum Hydrox 30 Ml Oral.Susp) 30 ml PO Q6H PRN PRN Reason: Heartburn/Nausea Dextrose (Dextrose 50 % 25 Gm/50 Ml Syringe) 25 gm IVPUSH Q15M PRN; Protocol PRN Reason: per Hypoglycemia Standing Ord. Divalproex Sodium (Divalproex Sodium 250 Mg Tablet.) 1,250 mg PO 1800 [facility] Last Admin: 07/06/23 17:15 Dose: 1,250 mg Escitalopram Oxalate (Escitalopram Oxalate 10 Mg Tablet) 10 mg PO DAILY [facility] Last Admin: 07/07/23 08:16 Dose: 10 mg Glucose (Glucose Gel 15 Gm Gel..Gram.) 15 gm PO Q15M PRN; Protocol PRN Reason: per Hypoglycemia Standing Ord. Hydroxyzine HCl (Hydroxyzine Hcl 25 Mg Tablet) 25 mg PO Q6H PRN PRN Reason: Anxiety Last Admin: 07/07/23 04:32 Dose: 25 mg Hydroxyzine HCl (Hydroxyzine Hcl 50 Mg Tablet) 50 mg PO BEDTIME PRN PRN Reason: insomnia Last Admin: 07/07/23 01:52 Dose: 50 mg Insulin Glargine (Insulin Glargine,Hum.Rec.Anlog 100 Unit/Ml 10 Ml Vial) 28 unit SUBCUT DAILY [facility] Last Admin: 07/07/23 08:19 Dose: 28 unit Insulin Human Lispro (Insulin Lispro 100 Unit/Ml 3 Ml Vial) 0 unit SUBCUT QIDACHS [facility]; Protocol Last Admin: 07/07/23 12:41 Dose: 6 unit Levothyroxine Sodium (Levothyroxine Sodium 125 Mcg Tablet) 125 mcg PO DAILY@0600 [facility] Last Admin: 07/07/23 05:23 Dose: 125 mcg Lisinopril (Lisinopril 10 Mg Tablet) 10 mg PO DAILY [facility]; Protocol Last Admin: 07/07/23 08:16 Dose: 10 mg [place] Carbonate ([place] Carbonate 300 Mg Capsule) 300 mg PO BID [facility] Last Admin: 07/07/23 08:16 Dose: 300 mg Loratadine (Loratadine 10 Mg Tablet) 10 mg PO DAILY PRN PRN Reason: allergy sx Magnesium Hydroxide (Milk Of Magnesia 30 Ml Oral.Susp) 30 ml PO DAILY PRN PRN Reason: Constipation Magnesium Oxide (Magnesium Oxide 400 Mg Tablet) 400 mg PO DAILY [facility] Last Admin: 07/07/23 08:16 Dose: 400 mg Multi-Ingred Cream/Lotion/Oil/Oint (Artificial Tears Ophth Oint 3.5 Gm Tube) 2 appl EYE-BOTH TID PRN; Protocol PRN Reason: Dry Eyes Non-Formulary Medication (Trulicity) 1.5 mg SUBCUT Q7D [facility] Olanzapine (Olanzapine 10 Mg Tablet) 20 mg PO BEDTIME [facility] Last Admin: 07/06/23 20:03 Dose: 20 mg Propranolol HCl (Propranolol Hcl 40 Mg Tablet) 80 mg PO TID [facility]; Protocol Last Admin: 07/07/23 14:57 Dose: 80 mg Risperidone (Risperidone 0.5 Mg Tablet) 0.5 mg PO DAILY [facility] Last Admin: 07/07/23 08:16 Dose: 0.5 mg Trazodone HCl (Trazodone Hcl 100 Mg Tablet) 100 mg PO BEDTIME MRX1 PRN PRN Reason: Insomnia Last Admin: 07/07/23 01:51 Dose: 100 mg Allergies Allergies Allergy/AdvReac Type Severity Reaction Status Date / Time haloperidol [From Haldol] AdvReac Unknown Verified 10/28/20 06:32 Assessment & Plan Assessment & Plan (1) Schizoaffective disorder, bipolar type: Status: Acute Code(s): F25.0 - Schizoaffective disorder, bipolar type Plan 63 yo female, hx of schizoaffective disorder, bipolar type with some sx of psychosis and arnoldo. Will check levels. TSH 6.43, Mg 1.5 and Na 133. Plan: Collateral contact EKG, Valproate, [place] levels Magnesium Oxide 400 mg daily Increase Olanzapine to 20 mg HS 07/07/23: Increase Valproate to 1500 mg daily Increase [place] to 450 mg bid TSH, BMP on 07/10. Informed Consent: does not understand Reason for continued inpatient stay Substantial Risk for: rapid decompensation Time Spent With Patient Time: Total time managing care of this patient today ____ minutes.
--- NOTE | 2023-07-07 16:31 | PC.NURSE ---
This nurse spoke to staff who perform EKG in cardiology department, to inquire about them coming to the unit to perform this diagnostic. Staff stated that they will be here as soon as possible.
[2023-07-07 17:07] LABS: Glucose, Whole Blood 306 mg/dL (60-115)
[2023-07-07 17:15] VITALS: BP 108/58; PULSE 72; RESP 16; TEMP 36.1; O2SAT 95
[2023-07-07] MEDS: Acetaminophen 325 MG TABLET 650 MG PO (17:29)
[2023-07-07] MEDS: Divalproex Sodium 500 MG TABLET.DR 1500 MG PO (18:17)
[2023-07-07] MEDS: Lidocaine 4 % Patch ADH..PATCH 1 PATCH TRANSDERMA (18:17)
[2023-07-07 19:55] LABS: Glucose, Whole Blood 293 mg/dL (60-115)
[2023-07-07] MEDS: OLANZapine 10 MG TABLET 20 MG PO (20:59)
[2023-07-07] MEDS: Lithium Carbonate 300 MG CAPSULE 450 MG PO (20:59)
[2023-07-08] MEDS: traZODone HCL 100 MG TABLET PO (03:15)
[2023-07-08] MEDS: hydrOXYzine HCL 50 MG TABLET PO (03:15)
[2023-07-08] MEDS: Levothyroxine Sodium 125 MCG TABLET PO (05:34)
[2023-07-08 08:33] VITALS: BP 136/64; PULSE 65; RESP 16; TEMP 36.6; O2SAT 97
[2023-07-08 08:35] LABS: Glucose, Whole Blood 220 mg/dL (60-115)
[2023-07-08] MEDS: Insulin Glargine,Hum.rec.anlog 100 UNIT/ML 10 ML VIAL 28 UNIT SUBCUT (09:05)
[2023-07-08] MEDS: Insulin Lispro 100 UNIT/ML 3 ML VIAL SUBCUT ×3 (09:06→17:43)
[2023-07-08] MEDS: Propranolol HCL 40 MG TABLET 80 MG PO ×3 (09:07→19:47)
[2023-07-08] MEDS: Lithium Carbonate 300 MG TABLET 450 MG PO ×2 (09:07→19:47)
[2023-07-08] MEDS: risperiDONE 0.5 MG TABLET PO (09:07)
[2023-07-08] MEDS: Escitalopram Oxalate 10 MG TABLET PO (09:07)
[2023-07-08] MEDS: Magnesium Oxide 400 MG TABLET PO (09:08)
[2023-07-08] MEDS: lisinopriL 10 MG TABLET PO (09:08)
[2023-07-08] MEDS: Lidocaine 4 % Patch ADH..PATCH 1 PATCH TRANSDERMA (09:11)
--- NOTE | 2023-07-08 12:07 | P.PNPSI_ITS ---
Subjective Subjective Date of Service: 07/08/23 Reason For Visit: Psychosis Interim History: pleasant, telling all she loves them. She believes we are all relatives. reports she slept 8 hours last evening. . Valproate 55.5, [place] 0.55. Will titrate. Remains on one to one. Medication Compliance: Yes Side effects from medications: No Attending Groups: No Review of Systems Acute medical concerns: No Medical Review of Systems: unchanged Review of Systems Review of Systems Patient has no acute medical complaints at this time Yes all other systems are reviewed and are negative and Unobtainable due to mental status Mental Status Exam Mental Status Exam Patient Appearance: Fatigued Patient Orientation: Person Level of Consciousness: Alert Patient Behavior: Talkative, Distractible and Good Eye Contact Mood Description: Labile Affect Description: Labile Patient Cognition Impaired: Yes Ability to Follow Directions: Fair Speech Pattern: Spontaneous Speech Memory Description: Remote Impaired Judgement: Poor Diagnostics Vital Signs (24Hr): Vital Signs - 24 hr 07/07/23 15:06 07/07/23 17:15 07/08/23 08:33 Temperature 97.0 F 97.8 F Pulse Rate 69 72 65 Respiratory Rate 16 16 Blood Pressure 138/77 108/58 L 136/64 Pulse Oximetry 95 97 Oxygen Delivery Method Room Air Room Air BMI result Body Mass Index 39.2 Labs 07/06/23 07:59 Labs: Laboratory Results - last 48 hr 07/06/23 07/06/23 07/07/23 16:59 19:57 07:52 POC Glucose 341 H 248 H 326 H Valproic Acid [place] 07/07/23 07/07/23 07/07/23 08:32 08:32 12:07 POC Glucose 271 H Valproic Acid 55.5 [place] 0.58 L 0.58 L 07/07/23 07/07/23 07/08/23 17:03 19:48 08:30 POC Glucose 306 H 293 H 220 H Valproic Acid [place] Medications Medications Current Medications Acetaminophen (Acetaminophen 325 Mg Tablet) 650 mg PO Q6H PRN PRN Reason: Headache/Pain Mild Scale (1-3) Last Admin: 07/07/23 17:29 Dose: 650 mg Al Hydroxide/Mg Hydroxide (Magnesium Hydrox/Alum Hydrox 30 Ml Oral.Susp) 30 ml PO Q6H PRN PRN Reason: Heartburn/Nausea Dextrose (Dextrose 50 % 25 Gm/50 Ml Syringe) 25 gm IVPUSH Q15M PRN; Protocol PRN Reason: per Hypoglycemia Standing Ord. Divalproex Sodium (Divalproex Sodium 500 Mg Tablet.) 1,500 mg PO 1800 [facility] Last Admin: 07/07/23 18:17 Dose: 1,500 mg Escitalopram Oxalate (Escitalopram Oxalate 10 Mg Tablet) 10 mg PO DAILY [facility] Last Admin: 07/08/23 09:07 Dose: 10 mg Glucose (Glucose Gel 15 Gm Gel..Gram.) 15 gm PO Q15M PRN; Protocol PRN Reason: per Hypoglycemia Standing Ord. Hydroxyzine HCl (Hydroxyzine Hcl 25 Mg Tablet) 25 mg PO Q6H PRN PRN Reason: Anxiety Last Admin: 07/07/23 04:32 Dose: 25 mg Hydroxyzine HCl (Hydroxyzine Hcl 50 Mg Tablet) 50 mg PO BEDTIME PRN PRN Reason: insomnia Last Admin: 07/08/23 03:15 Dose: 50 mg Insulin Glargine (Insulin Glargine,Hum.Rec.Anlog 100 Unit/Ml 10 Ml Vial) 28 unit SUBCUT DAILY [facility] Last Admin: 07/08/23 09:05 Dose: 28 unit Insulin Human Lispro (Insulin Lispro 100 Unit/Ml 3 Ml Vial) 0 unit SUBCUT QIDACHS [facility]; Protocol Last Admin: 07/08/23 09:06 Dose: 4 unit Levothyroxine Sodium (Levothyroxine Sodium 125 Mcg Tablet) 125 mcg PO DAILY@0600 [facility] Last Admin: 07/08/23 05:34 Dose: 125 mcg Lidocaine (Lidocaine 4 % Patch Adh..Patch) 1 patch TRANSDERMA DAILY [facility]; Protocol Last Admin: 07/08/23 09:11 Dose: 1 patch Lisinopril (Lisinopril 10 Mg Tablet) 10 mg PO DAILY [facility]; Protocol Last Admin: 07/08/23 09:08 Dose: 10 mg [place] Carbonate ([place] Carbonate 300 Mg Tablet) 450 mg PO BID [facility] Last Admin: 07/08/23 09:07 Dose: 450 mg Loratadine (Loratadine 10 Mg Tablet) 10 mg PO DAILY PRN PRN Reason: allergy sx Magnesium Hydroxide (Milk Of Magnesia 30 Ml Oral.Susp) 30 ml PO DAILY PRN PRN Reason: Constipation Magnesium Oxide (Magnesium Oxide 400 Mg Tablet) 400 mg PO DAILY [facility] Last Admin: 07/08/23 09:08 Dose: 400 mg Multi-Ingred Cream/Lotion/Oil/Oint (Artificial Tears Ophth Oint 3.5 Gm Tube) 2 appl EYE-BOTH TID PRN; Protocol PRN Reason: Dry Eyes Non-Formulary Medication (Trulicity) 1.5 mg SUBCUT Q7D [facility] Olanzapine (Olanzapine 10 Mg Tablet) 20 mg PO BEDTIME [facility] Last Admin: 07/07/23 20:59 Dose: 20 mg Propranolol HCl (Propranolol Hcl 40 Mg Tablet) 80 mg PO TID [facility]; Protocol Last Admin: 07/08/23 09:07 Dose: 80 mg Risperidone (Risperidone 0.5 Mg Tablet) 0.5 mg PO DAILY [facility] Last Admin: 07/08/23 09:07 Dose: 0.5 mg Trazodone HCl (Trazodone Hcl 100 Mg Tablet) 100 mg PO BEDTIME MRX1 PRN PRN Reason: Insomnia Last Admin: 07/08/23 03:15 Dose: 100 mg Allergies Allergies Allergy/AdvReac Type Severity Reaction Status Date / Time haloperidol [From Haldol] AdvReac Unknown Verified 10/28/20 06:32 Assessment & Plan Assessment & Plan (1) Schizoaffective disorder, bipolar type: Status: Acute Code(s): F25.0 - Schizoaffective disorder, bipolar type Plan 63 yo female, hx of schizoaffective disorder, bipolar type with some sx of psychosis and [place]. Will check levels. TSH 6.43, Mg 1.5 and Na 133. Plan: Collateral contact EKG, Valproate, [place] levels Magnesium Oxide 400 mg daily Increase Olanzapine to 20 mg HS 07/07/23: Increase Valproate to 1500 mg daily Increase [place] to 450 mg bid TSH, BMP on 07/10. 07/08/23 continue tx plan Patient educated on: therapeutic strategies Informed Consent: does not understand Reason for continued inpatient stay Substantial Risk for: harm to self, inability to function and rapid decompensation Time Spent With Patient Time: Total time managing care of this patient today ____ minutes.
[2023-07-08 12:30] LABS: Glucose, Whole Blood 337 mg/dL (60-115)
[2023-07-08 14:23] VITALS: BP 127/58; PULSE 74
[2023-07-08 17:35] LABS: Glucose, Whole Blood 245 mg/dL (60-115)
[2023-07-08 18:00] VITALS: BP 122/60; PULSE 70; RESP 17; TEMP 36.6; O2SAT 100
[2023-07-08] MEDS: Divalproex Sodium 500 MG TABLET.DR 1500 MG PO (18:44)
[2023-07-08] MEDS: OLANZapine 10 MG TABLET 20 MG PO (19:46)
[2023-07-08 20:03] LABS: Glucose, Whole Blood 198 mg/dL (60-115)
[2023-07-09] MEDS: traZODone HCL 100 MG TABLET PO (02:21)
[2023-07-09] MEDS: hydrOXYzine HCL 50 MG TABLET PO (02:21)
[2023-07-09] MEDS: Levothyroxine Sodium 125 MCG TABLET PO (06:36)
[2023-07-09 08:41] VITALS: BP 128/61; PULSE 63; RESP 16; TEMP 36.9; O2SAT 97
[2023-07-09 08:52] LABS: Glucose, Whole Blood 218 mg/dL (60-115)
[2023-07-09] MEDS: Lithium Carbonate 300 MG TABLET 450 MG PO ×2 (09:10→21:22)
[2023-07-09] MEDS: lisinopriL 10 MG TABLET PO (09:10)
[2023-07-09] MEDS: risperiDONE 0.5 MG TABLET PO (09:11)
[2023-07-09] MEDS: Escitalopram Oxalate 10 MG TABLET PO (09:11)
[2023-07-09] MEDS: Propranolol HCL 40 MG TABLET 80 MG PO ×3 (09:11→21:22)
[2023-07-09] MEDS: Magnesium Oxide 400 MG TABLET PO (09:11)
[2023-07-09] MEDS: Insulin Lispro 100 UNIT/ML 3 ML VIAL SUBCUT ×4 (09:12→21:20)
[2023-07-09] MEDS: Insulin Glargine,Hum.rec.anlog 100 UNIT/ML 10 ML VIAL 28 UNIT SUBCUT (09:13)
[2023-07-09] MEDS: Lidocaine 4 % Patch ADH..PATCH 1 PATCH TRANSDERMA (09:15)
--- NOTE | 2023-07-09 10:19 | HO.PSYCHPN ---
Subjective Subjective Date of Service: 07/09/23 Reason For Visit: Psychosis Interim History: pleasant, mood elevated; polite; denies complaints; She believes we are all relatives. reports she slept 8 hours last evening. . Valproate 55.5, [place] 0.55. Will titrate. Remains on one to one. Medication Compliance: Yes Side effects from medications: No Attending Groups: No Review of Systems Acute medical concerns: No Medical Review of Systems: unchanged Review of Systems Review of Systems Patient has no acute medical complaints at this time Yes all other systems are reviewed and are negative and Unobtainable due to mental status Mental Status Exam Mental Status Exam Patient Appearance: Fatigued Patient Orientation: Person Level of Consciousness: Alert Patient Behavior: Talkative, Distractible and Good Eye Contact Mood Description: Labile Affect Description: Labile Patient Cognition Impaired: Yes Ability to Follow Directions: Fair Speech Pattern: Spontaneous Speech Memory Description: Remote Impaired Judgement: Poor Diagnostics Vital Signs (24Hr): Vital Signs - 24 hr 07/08/23 14:23 07/08/23 18:00 07/09/23 08:41 Temperature 97.9 F 98.4 F Pulse Rate 74 70 63 Respiratory Rate 17 16 Blood Pressure 127/58 L 122/60 128/61 Pulse Oximetry 100 97 Oxygen Delivery Method Room Air Room Air BMI result Body Mass Index 39.2 Labs 07/06/23 07:59 Labs: Laboratory Results - last 48 hr 07/07/23 07/07/23 07/07/23 12:07 17:03 19:48 POC Glucose 271 H 306 H 293 H 07/08/23 07/08/23 07/08/23 08:30 12:25 17:31 POC Glucose 220 H 337 H 245 H 07/08/23 07/09/23 19:59 08:18 POC Glucose 198 H 218 H Medications Medications Current Medications Acetaminophen (Acetaminophen 325 Mg Tablet) 650 mg PO Q6H PRN PRN Reason: Headache/Pain Mild Scale (1-3) Last Admin: 07/07/23 17:29 Dose: 650 mg Al Hydroxide/Mg Hydroxide (Magnesium Hydrox/Alum Hydrox 30 Ml Oral.Susp) 30 ml PO Q6H PRN PRN Reason: Heartburn/Nausea Dextrose (Dextrose 50 % 25 Gm/50 Ml Syringe) 25 gm IVPUSH Q15M PRN; Protocol PRN Reason: per Hypoglycemia Standing Ord. Divalproex Sodium (Divalproex Sodium 500 Mg Tablet.) 1,500 mg PO 1800 [facility] Last Admin: 07/08/23 18:44 Dose: 1,500 mg Escitalopram Oxalate (Escitalopram Oxalate 10 Mg Tablet) 10 mg PO DAILY [facility] Last Admin: 07/09/23 09:11 Dose: 10 mg Glucose (Glucose Gel 15 Gm Gel..Gram.) 15 gm PO Q15M PRN; Protocol PRN Reason: per Hypoglycemia Standing Ord. Hydroxyzine HCl (Hydroxyzine Hcl 25 Mg Tablet) 25 mg PO Q6H PRN PRN Reason: Anxiety Last Admin: 07/07/23 04:32 Dose: 25 mg Hydroxyzine HCl (Hydroxyzine Hcl 50 Mg Tablet) 50 mg PO BEDTIME PRN PRN Reason: insomnia Last Admin: 07/09/23 02:21 Dose: 50 mg Insulin Glargine (Insulin Glargine,Hum.Rec.Anlog 100 Unit/Ml 10 Ml Vial) 28 unit SUBCUT DAILY [facility] Last Admin: 07/09/23 09:13 Dose: 28 unit Insulin Human Lispro (Insulin Lispro 100 Unit/Ml 3 Ml Vial) 0 unit SUBCUT QIDACHS [facility]; Protocol Last Admin: 07/09/23 09:12 Dose: 4 unit Levothyroxine Sodium (Levothyroxine Sodium 125 Mcg Tablet) 125 mcg PO DAILY@0600 [facility] Last Admin: 07/09/23 06:36 Dose: 125 mcg Lidocaine (Lidocaine 4 % Patch Adh..Patch) 1 patch TRANSDERMA DAILY [facility]; Protocol Last Admin: 07/09/23 09:15 Dose: 1 patch Lisinopril (Lisinopril 10 Mg Tablet) 10 mg PO DAILY [facility]; Protocol Last Admin: 07/09/23 09:10 Dose: 10 mg [place] Carbonate ([place] Carbonate 300 Mg Tablet) 450 mg PO BID [facility] Last Admin: 07/09/23 09:10 Dose: 450 mg Loratadine (Loratadine 10 Mg Tablet) 10 mg PO DAILY PRN PRN Reason: allergy sx Magnesium Hydroxide (Milk Of Magnesia 30 Ml Oral.Susp) 30 ml PO DAILY PRN PRN Reason: Constipation Magnesium Oxide (Magnesium Oxide 400 Mg Tablet) 400 mg PO DAILY [facility] Last Admin: 07/09/23 09:11 Dose: 400 mg Multi-Ingred Cream/Lotion/Oil/Oint (Artificial Tears Ophth Oint 3.5 Gm Tube) 2 appl EYE-BOTH TID PRN; Protocol PRN Reason: Dry Eyes Olanzapine (Olanzapine 10 Mg Tablet) 20 mg PO BEDTIME [facility] Last Admin: 07/08/23 19:46 Dose: 20 mg Propranolol HCl (Propranolol Hcl 40 Mg Tablet) 80 mg PO TID [facility]; Protocol Last Admin: 07/09/23 09:11 Dose: 80 mg Risperidone (Risperidone 0.5 Mg Tablet) 0.5 mg PO DAILY [facility] Last Admin: 07/09/23 09:11 Dose: 0.5 mg Trazodone HCl (Trazodone Hcl 100 Mg Tablet) 100 mg PO BEDTIME MRX1 PRN PRN Reason: Insomnia Last Admin: 07/09/23 02:21 Dose: 100 mg Allergies Allergies Allergy/AdvReac Type Severity Reaction Status Date / Time haloperidol [From Haldol] AdvReac Unknown Verified 10/28/20 06:32 Assessment & Plan Assessment & Plan (1) Schizoaffective disorder, bipolar type: Status: Acute Code(s): F25.0 - Schizoaffective disorder, bipolar type Plan 63 yo female, hx of schizoaffective disorder, bipolar type with some sx of psychosis and [place]. Will check levels. TSH 6.43, Mg 1.5 and Na 133. Plan: Collateral contact EKG, Valproate, [place] levels Magnesium Oxide 400 mg daily Increase Olanzapine to 20 mg HS 07/07/23: Increase Valproate to 1500 mg daily Increase [place] to 450 mg bid TSH, BMP on 07/10. 07/08/23 continue tx plan 07/09/23 continue treatment plan Patient educated on: therapeutic strategies Informed Consent: further education needed Reason for continued inpatient stay Substantial Risk for: harm to self, harm to others, inability to function and med/psych decompensation Time Spent With Patient Time: Total time managing care of this patient today ____ minutes.
[2023-07-09 12:50] LABS: Glucose, Whole Blood 401 mg/dL (60-115)
[2023-07-09 15:06] VITALS: BP 138/65; PULSE 71
[2023-07-09 17:12] LABS: Glucose, Whole Blood 209 mg/dL (60-115)
[2023-07-09] MEDS: Divalproex Sodium 500 MG TABLET.DR 1500 MG PO (18:27)
[2023-07-09 20:53] LABS: Glucose, Whole Blood 307 mg/dL (60-115)
[2023-07-09 21:00] VITALS: BP 128/76; PULSE 73; RESP 16; TEMP 36.9; O2SAT 98
[2023-07-09] MEDS: OLANZapine 10 MG TABLET 20 MG PO (21:22)
[2023-07-09] MEDS: Artificial Tears Ophth Oint 3.5 GM TUBE 2 APPL EYE-BOTH (22:47)
[2023-07-10] MEDS: Levothyroxine Sodium 125 MCG TABLET PO (05:51)
[2023-07-10 06:00] VITALS: BP 133/62; PULSE 66; RESP 18; TEMP 36.3; O2SAT 95
[2023-07-10 08:37] LABS: Glucose, Whole Blood 210 mg/dL (60-115)
[2023-07-10] MEDS: Lidocaine 4 % Patch ADH..PATCH 1 PATCH TRANSDERMA (09:28)
[2023-07-10] MEDS: Insulin Glargine,Hum.rec.anlog 100 UNIT/ML 10 ML VIAL 28 UNIT SUBCUT (09:29)
[2023-07-10] MEDS: Insulin Lispro 100 UNIT/ML 3 ML VIAL SUBCUT ×4 (09:30→21:36)
[2023-07-10] MEDS: Propranolol HCL 40 MG TABLET 80 MG PO ×3 (09:31→21:37)
[2023-07-10] MEDS: lisinopriL 10 MG TABLET PO (09:32)
[2023-07-10] MEDS: Escitalopram Oxalate 10 MG TABLET PO (09:32)
[2023-07-10] MEDS: Magnesium Oxide 400 MG TABLET PO (09:32)
[2023-07-10] MEDS: Lithium Carbonate 300 MG TABLET 450 MG PO ×2 (09:32→21:36)
[2023-07-10] MEDS: risperiDONE 0.5 MG TABLET PO (09:32)
[2023-07-10 12:09] LABS: Glucose, Whole Blood 239 mg/dL (60-115)
[2023-07-10] MEDS: Artificial Tears Ophth Oint 3.5 GM TUBE 2 APPL EYE-BOTH (14:56)
[2023-07-10 16:16] VITALS: BP 131/60; PULSE 66
[2023-07-10 17:31] LABS: Glucose, Whole Blood 209 mg/dL (60-115)
--- NOTE | 2023-07-10 17:37 | HO.PSYCHPN ---
Subjective Subjective Date of Service: 07/10/23 Reason For Visit: Psychosis Subjective Notes: Conditional Voluntary Healthcare Proxy: No Guardianship: No Medical Problems Affecting Mental Status: No Interim History: Pt able to return to 15 minute checks. She is resting, awake, alert, tangential, positive, sending love to all. She continues to be hypomanic in presentation, denies current symptoms or issues of concern. Valproate/[place] titrated. Medication Compliance: Yes Side effects from medications: No Attending Groups: No Review of Systems Acute medical concerns: No Medical Review of Systems: unchanged Review of Systems Review of Systems Yes all other systems are reviewed and are negative (denies) Mental Status Exam Mental Status Exam Patient Appearance: Appropriate Patient Orientation: Person and Place Level of Consciousness: Alert Patient Behavior: Talkative, Distractible and Good Eye Contact Mood Description: Cheerful and Labile Affect Description: Cheerful and Labile Patient Cognition Impaired: Yes Ability to Follow Directions: Fair Speech Pattern: Spontaneous Speech Memory Description: Remote Impaired Delusions: Present Thought Process: Illogical and Distracted Thought Content: positive for Flight of Ideas, positive for Racing, positive for Circumstantial, positive for Loose Associations, positive for Tangential, positive for Disorganized and positive for Suicidal Ideation (denies) Depressive Symptoms: Increased Anxiety and Thoughts of /Suicide (denies) Judgement: Fair Diagnostics Vital Signs (24Hr): Vital Signs - 24 hr 07/09/23 21:00 07/10/23 06:00 07/10/23 16:16 Temperature 98.4 F 97.3 F Pulse Rate 73 66 66 Respiratory Rate 16 18 Blood Pressure 128/76 133/62 131/60 Pulse Oximetry 98 95 Oxygen Delivery Method Room Air Room Air BMI result Body Mass Index 39.2 Labs 07/06/23 07:59 Labs: Laboratory Results - last 48 hr 07/08/23 07/09/23 07/09/23 19:59 08:18 12:39 POC Glucose 198 H 218 H 401 H* 07/09/23 07/09/23 07/10/23 17:07 20:47 08:31 POC Glucose 209 H 307 H 210 H 07/10/23 07/10/23 12:04 17:27 POC Glucose 239 H 209 H Medications Medications Current Medications Acetaminophen (Acetaminophen 325 Mg Tablet) 650 mg PO Q6H PRN PRN Reason: Headache/Pain Mild Scale (1-3) Last Admin: 07/07/23 17:29 Dose: 650 mg Al Hydroxide/Mg Hydroxide (Magnesium Hydrox/Alum Hydrox 30 Ml Oral.Susp) 30 ml PO Q6H PRN PRN Reason: Heartburn/Nausea Dextrose (Dextrose 50 % 25 Gm/50 Ml Syringe) 25 gm IVPUSH Q15M PRN; Protocol PRN Reason: per Hypoglycemia Standing Ord. Divalproex Sodium (Divalproex Sodium 500 Mg Tablet.Dr) 1,500 mg PO 1800 [facility] Last Admin: 07/09/23 18:27 Dose: 1,500 mg Escitalopram Oxalate (Escitalopram Oxalate 10 Mg Tablet) 10 mg PO DAILY [facility] Last Admin: 07/10/23 09:32 Dose: 10 mg Glucose (Glucose Gel 15 Gm Gel..Gram.) 15 gm PO Q15M PRN; Protocol PRN Reason: per Hypoglycemia Standing Ord. Hydroxyzine HCl (Hydroxyzine Hcl 25 Mg Tablet) 25 mg PO Q6H PRN PRN Reason: Anxiety Last Admin: 07/07/23 04:32 Dose: 25 mg Hydroxyzine HCl (Hydroxyzine Hcl 50 Mg Tablet) 50 mg PO BEDTIME PRN PRN Reason: insomnia Last Admin: 07/09/23 02:21 Dose: 50 mg Insulin Glargine (Insulin Glargine,Hum.Rec.Anlog 100 Unit/Ml 10 Ml Vial) 28 unit SUBCUT DAILY [facility] Last Admin: 07/10/23 09:29 Dose: 28 unit Insulin Human Lispro (Insulin Lispro 100 Unit/Ml 3 Ml Vial) 0 unit SUBCUT QIDACHS [facility]; Protocol Last Admin: 07/10/23 12:54 Dose: 4 unit Levothyroxine Sodium (Levothyroxine Sodium 125 Mcg Tablet) 125 mcg PO DAILY@0600 [facility] Last Admin: 07/10/23 05:51 Dose: 125 mcg Lidocaine (Lidocaine 4 % Patch Adh..Patch) 1 patch TRANSDERMA DAILY [facility]; Protocol Last Admin: 07/10/23 09:28 Dose: 1 patch Lisinopril (Lisinopril 10 Mg Tablet) 10 mg PO DAILY [facility]; Protocol Last Admin: 07/10/23 09:32 Dose: 10 mg [place] Carbonate ([place] Carbonate 300 Mg Tablet) 450 mg PO BID [facility] Last Admin: 07/10/23 09:32 Dose: 450 mg Loratadine (Loratadine 10 Mg Tablet) 10 mg PO DAILY PRN PRN Reason: allergy sx Magnesium Hydroxide (Milk Of Magnesia 30 Ml Oral.Susp) 30 ml PO DAILY PRN PRN Reason: Constipation Magnesium Oxide (Magnesium Oxide 400 Mg Tablet) 400 mg PO DAILY [facility] Last Admin: 07/10/23 09:32 Dose: 400 mg Multi-Ingred Cream/Lotion/Oil/Oint (Artificial Tears Ophth Oint 3.5 Gm Tube) 2 appl EYE-BOTH TID PRN; Protocol PRN Reason: Dry Eyes Last Admin: 07/10/23 14:56 Dose: 2 appl Olanzapine (Olanzapine 10 Mg Tablet) 20 mg PO BEDTIME [facility] Last Admin: 07/09/23 21:22 Dose: 20 mg Propranolol HCl (Propranolol Hcl 40 Mg Tablet) 80 mg PO TID [facility]; Protocol Last Admin: 07/10/23 16:39 Dose: 80 mg Risperidone (Risperidone 0.5 Mg Tablet) 0.5 mg PO DAILY [facility] Last Admin: 07/10/23 09:32 Dose: 0.5 mg Trazodone HCl (Trazodone Hcl 100 Mg Tablet) 100 mg PO BEDTIME MRX1 PRN PRN Reason: Insomnia Last Admin: 07/09/23 02:21 Dose: 100 mg Allergies Allergies Allergy/AdvReac Type Severity Reaction Status Date / Time haloperidol [From Haldol] AdvReac Unknown Verified 10/28/20 06:32 Assessment & Plan Assessment & Plan (1) Schizoaffective disorder, bipolar type: Status: Acute Code(s): F25.0 - Schizoaffective disorder, bipolar type Plan 63 yo female, hx of schizoaffective disorder, bipolar type with some sx of psychosis and [place]. Will check levels. TSH 6.43, Mg 1.5 and Na 133. Plan: Collateral contact EKG, Valproate, [place] levels Magnesium Oxide 400 mg daily Increase Olanzapine to 20 mg HS 07/07/23: Increase Valproate to 1500 mg daily Increase [place] to 450 mg bid TSH, BMP on 07/10. 07/08/23 continue tx plan 07/09/23 continue treatment plan 07/10/23 continue current regime Informed Consent: does not understand Reason for continued inpatient stay Substantial Risk for: rapid decompensation Time Spent With Patient Time: Total time managing care of this patient today ____ minutes.
[2023-07-10] MEDS: Divalproex Sodium 500 MG TABLET.DR 1500 MG PO (18:14)
[2023-07-10 20:38] VITALS: BP 139/61; PULSE 73; RESP 18; TEMP 36.4; O2SAT 93
[2023-07-10 20:46] LABS: Glucose, Whole Blood 309 mg/dL (60-115)
[2023-07-10] MEDS: OLANZapine 10 MG TABLET 20 MG PO (21:37)
[2023-07-10] MEDS: traZODone HCL 100 MG TABLET PO (21:37)
[2023-07-11] MEDS: Levothyroxine Sodium 125 MCG TABLET PO (06:22)
[2023-07-11 08:00] VITALS: BP 124/66; PULSE 64; RESP 18; TEMP 36.2; O2SAT 98
[2023-07-11] MEDS: Propranolol HCL 40 MG TABLET 80 MG PO ×3 (08:02→20:23)
[2023-07-11] MEDS: risperiDONE 0.5 MG TABLET PO (08:02)
[2023-07-11] MEDS: lisinopriL 10 MG TABLET PO (08:02)
[2023-07-11] MEDS: Escitalopram Oxalate 10 MG TABLET PO (08:02)
[2023-07-11] MEDS: Magnesium Oxide 400 MG TABLET PO (08:02)
[2023-07-11] MEDS: Lithium Carbonate 300 MG TABLET 450 MG PO ×2 (08:02→20:22)
[2023-07-11] MEDS: Insulin Glargine,Hum.rec.anlog 100 UNIT/ML 10 ML VIAL 28 UNIT SUBCUT (08:03)
[2023-07-11] MEDS: Lidocaine 4 % Patch ADH..PATCH 1 PATCH TRANSDERMA (08:03)
[2023-07-11 08:30] LABS: Glucose, Whole Blood 254 mg/dL (60-115)
[2023-07-11] MEDS: Insulin Lispro 100 UNIT/ML 3 ML VIAL SUBCUT ×4 (09:05→20:43)
--- NOTE | 2023-07-11 09:54 | P.PNPSI_ITS ---
Subjective Subjective Date of Service: 07/11/23 Reason For Visit: Psychosis Subjective Notes: Conditional Voluntary Healthcare Proxy: No Guardianship: No Medical Problems Affecting Mental Status: No Interim History: Pt visable in milieu. Doing well she reports on new timing of checks. Positive, hypomanic,labile, singing, telling many she loves them and they are beautiful, alert, with peers. Intermittent irritability. Valproate and [place] have been titrated. Will continue with Olanzapine titration. Medication Compliance: Yes Side effects from medications: No Attending Groups: Intermittent Review of Systems Acute medical concerns: No Medical Review of Systems: unchanged Review of Systems Review of Systems Yes all other systems are reviewed and are negative Mental Status Exam Mental Status Exam Patient Appearance: Appropriate Patient Orientation: Person and Place Level of Consciousness: Alert Patient Behavior: Talkative, Distractible and Good Eye Contact Mood Description: Cheerful and Labile Affect Description: Cheerful and Labile Patient Cognition Impaired: Yes Ability to Follow Directions: Fair Speech Pattern: Spontaneous Speech Memory Description: Remote Impaired Delusions: Present Thought Process: Illogical and Distracted Thought Content: positive for Flight of Ideas, positive for Racing, positive for Circumstantial, positive for Loose Associations, positive for Tangential, positive for Disorganized and positive for Suicidal Ideation (denies) Depressive Symptoms: Increased Anxiety and Thoughts of /Suicide (denies) Judgement: Fair Diagnostics Vital Signs (24Hr): Vital Signs - 24 hr 07/10/23 16:16 07/10/23 20:38 07/11/23 08:00 Temperature 97.6 F 97.1 F Pulse Rate 66 73 64 Respiratory Rate 18 18 Blood Pressure 131/60 139/61 124/66 Pulse Oximetry 93 98 Oxygen Delivery Method Room Air Room Air BMI result Body Mass Index 39.2 Labs 07/06/23 07:59 Labs: Laboratory Results - last 48 hr 07/09/23 07/09/23 07/09/23 12:39 17:07 20:47 POC Glucose 401 H* 209 H 307 H 07/10/23 07/10/23 07/10/23 08:31 12:04 17:27 POC Glucose 210 H 239 H 209 H 07/10/23 07/11/23 20:29 08:25 POC Glucose 309 H 254 H Medications Medications Current Medications Acetaminophen (Acetaminophen 325 Mg Tablet) 650 mg PO Q6H PRN PRN Reason: Headache/Pain Mild Scale (1-3) Last Admin: 07/07/23 17:29 Dose: 650 mg Al Hydroxide/Mg Hydroxide (Magnesium Hydrox/Alum Hydrox 30 Ml Oral.Susp) 30 ml PO Q6H PRN PRN Reason: Heartburn/Nausea Dextrose (Dextrose 50 % 25 Gm/50 Ml Syringe) 25 gm IVPUSH Q15M PRN; Protocol PRN Reason: per Hypoglycemia Standing Ord. Divalproex Sodium (Divalproex Sodium 500 Mg Tablet.Dr) 1,500 mg PO 1800 [facility] Last Admin: 07/10/23 18:14 Dose: 1,500 mg Escitalopram Oxalate (Escitalopram Oxalate 10 Mg Tablet) 10 mg PO DAILY [facility] Last Admin: 07/11/23 08:02 Dose: 10 mg Glucose (Glucose Gel 15 Gm Gel..Gram.) 15 gm PO Q15M PRN; Protocol PRN Reason: per Hypoglycemia Standing Ord. Hydroxyzine HCl (Hydroxyzine Hcl 25 Mg Tablet) 25 mg PO Q6H PRN PRN Reason: Anxiety Last Admin: 07/07/23 04:32 Dose: 25 mg Hydroxyzine HCl (Hydroxyzine Hcl 50 Mg Tablet) 50 mg PO BEDTIME PRN PRN Reason: insomnia Last Admin: 07/09/23 02:21 Dose: 50 mg Insulin Glargine (Insulin Glargine,Hum.Rec.Anlog 100 Unit/Ml 10 Ml Vial) 28 unit SUBCUT DAILY [facility] Last Admin: 07/11/23 08:03 Dose: 28 unit Insulin Human Lispro (Insulin Lispro 100 Unit/Ml 3 Ml Vial) 0 unit SUBCUT QIDACHS [facility]; Protocol Last Admin: 07/11/23 09:05 Dose: 6 unit Levothyroxine Sodium (Levothyroxine Sodium 125 Mcg Tablet) 125 mcg PO DAILY@0600 [facility] Last Admin: 07/11/23 06:22 Dose: 125 mcg Lidocaine (Lidocaine 4 % Patch Adh..Patch) 1 patch TRANSDERMA DAILY [facility]; Protocol Last Admin: 07/11/23 08:03 Dose: 1 patch Lisinopril (Lisinopril 10 Mg Tablet) 10 mg PO DAILY [facility]; Protocol Last Admin: 07/11/23 08:02 Dose: 10 mg [place] Carbonate ([place] Carbonate 300 Mg Tablet) 450 mg PO BID [facility] Last Admin: 07/11/23 08:02 Dose: 450 mg Loratadine (Loratadine 10 Mg Tablet) 10 mg PO DAILY PRN PRN Reason: allergy sx Magnesium Hydroxide (Milk Of Magnesia 30 Ml Oral.Susp) 30 ml PO DAILY PRN PRN Reason: Constipation Magnesium Oxide (Magnesium Oxide 400 Mg Tablet) 400 mg PO DAILY [facility] Last Admin: 07/11/23 08:02 Dose: 400 mg Multi-Ingred Cream/Lotion/Oil/Oint (Artificial Tears Ophth Oint 3.5 Gm Tube) 2 appl EYE-BOTH TID PRN; Protocol PRN Reason: Dry Eyes Last Admin: 07/10/23 14:56 Dose: 2 appl Olanzapine (Olanzapine 10 Mg Tablet) 20 mg PO BEDTIME [facility] Last Admin: 07/10/23 21:37 Dose: 20 mg Propranolol HCl (Propranolol Hcl 40 Mg Tablet) 80 mg PO TID [facility]; Protocol Last Admin: 07/11/23 08:02 Dose: 80 mg Risperidone (Risperidone 0.5 Mg Tablet) 0.5 mg PO DAILY [facility] Last Admin: 07/11/23 08:02 Dose: 0.5 mg Trazodone HCl (Trazodone Hcl 100 Mg Tablet) 100 mg PO BEDTIME MRX1 PRN PRN Reason: Insomnia Last Admin: 07/10/23 21:37 Dose: 100 mg Allergies Allergies Allergy/AdvReac Type Severity Reaction Status Date / Time haloperidol [From Haldol] AdvReac Unknown Verified 10/28/20 06:32 Assessment & Plan Assessment & Plan (1) Schizoaffective disorder, bipolar type: Status: Acute Code(s): F25.0 - Schizoaffective disorder, bipolar type Plan 63 yo female, hx of schizoaffective disorder, bipolar type with some sx of psychosis and [place]. Will check levels. TSH 6.43, Mg 1.5 and Na 133. Plan: Collateral contact EKG, Valproate, [place] levels Magnesium Oxide 400 mg daily Increase Olanzapine to 20 mg HS 07/07/23: Increase Valproate to 1500 mg daily Increase [place] to 450 mg bid TSH, BMP on 07/10. 07/08/23 continue tx plan 07/09/23 continue treatment plan 07/11/23 Increase Olanzapine to 25 mg HS. Informed Consent: further education needed Reason for continued inpatient stay Substantial Risk for: rapid decompensation Time Spent With Patient Time: Total time managing care of this patient today ____ minutes.
[2023-07-11] MEDS: Artificial Tears Ophth Oint 3.5 GM TUBE 2 APPL EYE-BOTH (11:44)
[2023-07-11 12:31] LABS: Glucose, Whole Blood 354 mg/dL (60-115)
[2023-07-11 14:08] VITALS: BP 116/56; PULSE 105; O2SAT 96
[2023-07-11 16:37] LABS: Glucose, Whole Blood 223 mg/dL (60-115)
[2023-07-11 17:10] VITALS: BP 113/54; PULSE 70; RESP 18; TEMP 36.2; O2SAT 95
[2023-07-11] MEDS: Divalproex Sodium 500 MG TABLET.DR 1500 MG PO (17:38)
[2023-07-11] MEDS: traZODone HCL 100 MG TABLET PO (20:21)
[2023-07-11] MEDS: OLANZapine 5 MG TABLET 25 MG PO (20:22)
[2023-07-11 20:32] LABS: Glucose, Whole Blood 326 mg/dL (60-115)
[2023-07-12] MEDS: Levothyroxine Sodium 125 MCG TABLET PO (05:56)
[2023-07-12 07:48] LABS: Glucose, Whole Blood 307 mg/dL (60-115)
[2023-07-12] MEDS: risperiDONE 0.5 MG TABLET PO (08:24)
[2023-07-12] MEDS: Propranolol HCL 40 MG TABLET 80 MG PO ×3 (08:24→20:18)
[2023-07-12] MEDS: lisinopriL 10 MG TABLET PO (08:24)
[2023-07-12] MEDS: Lithium Carbonate 300 MG TABLET 450 MG PO ×2 (08:24→20:13)
[2023-07-12] MEDS: Magnesium Oxide 400 MG TABLET PO (08:24)
[2023-07-12] MEDS: Escitalopram Oxalate 10 MG TABLET PO (08:24)
[2023-07-12] MEDS: Insulin Glargine,Hum.rec.anlog 100 UNIT/ML 10 ML VIAL 28 UNIT SUBCUT (08:28)
[2023-07-12] MEDS: Insulin Lispro 100 UNIT/ML 3 ML VIAL SUBCUT ×3 (08:28→17:14)
[2023-07-12 08:30] VITALS: BP 137/63; PULSE 69; RESP 18; TEMP 36.4; O2SAT 98
[2023-07-12] MEDS: Lidocaine 4 % Patch ADH..PATCH 1 PATCH TRANSDERMA (08:44)
[2023-07-12 12:10] LABS: Glucose, Whole Blood 246 mg/dL (60-115)
--- NOTE | 2023-07-12 13:32 | HO.PSYCHPN ---
Subjective Subjective Date of Service: 07/12/23 Reason For Visit: Psychosis Subjective Notes: Conditional Voluntary Healthcare Proxy: No Guardianship: No Medical Problems Affecting Mental Status: No Interim History: Remains hypomanic, responding to internal stimuli. She denies all symptoms however with intermittent agitation. Today, we learned of pt having a Ad's Treatment order with Olanzapine, Risperdal and Abilify available. As a result, regime adjusted to reflect the treatment order. Medication Compliance: Yes Side effects from medications: No Attending Groups: No Review of Systems Acute medical concerns: No Medical Review of Systems: unchanged Review of Systems Review of Systems Yes Unobtainable due to mental status Mental Status Exam Mental Status Exam Patient Appearance: Appropriate Patient Orientation: Person and Place Level of Consciousness: Alert Patient Behavior: Talkative, Distractible and Good Eye Contact Mood Description: Cheerful and Labile Affect Description: Cheerful and Labile Patient Cognition Impaired: Yes Ability to Follow Directions: Fair Speech Pattern: Spontaneous Speech Memory Description: Remote Impaired Delusions: Present Thought Process: Illogical and Distracted Thought Content: positive for Flight of Ideas, positive for Racing, positive for Circumstantial, positive for Loose Associations, positive for Tangential, positive for Disorganized and positive for Suicidal Ideation (denies) Depressive Symptoms: Increased Anxiety and Thoughts of /Suicide (denies) Judgement: Fair Diagnostics Vital Signs (24Hr): Vital Signs - 24 hr 07/11/23 14:08 07/11/23 17:10 07/12/23 08:30 Temperature 97.1 F 97.5 F Pulse Rate 105 H 70 69 Respiratory Rate 18 18 Blood Pressure 116/56 L 113/54 L 137/63 Pulse Oximetry 96 95 98 Oxygen Delivery Method Room Air Room Air Room Air BMI result Body Mass Index 39.2 Labs 07/06/23 07:59 Labs: Laboratory Results - last 48 hr 07/10/23 07/10/23 07/11/23 17:27 20:29 08:25 POC Glucose 209 H 309 H 254 H 07/11/23 07/11/23 07/11/23 12:25 16:27 20:28 POC Glucose 354 H* 223 H 326 H 07/12/23 07/12/23 07:43 12:06 POC Glucose 307 H 246 H Medications Medications Current Medications Acetaminophen (Acetaminophen 325 Mg Tablet) 650 mg PO Q6H PRN PRN Reason: Headache/Pain Mild Scale (1-3) Last Admin: 07/07/23 17:29 Dose: 650 mg Al Hydroxide/Mg Hydroxide (Magnesium Hydrox/Alum Hydrox 30 Ml Oral.Susp) 30 ml PO Q6H PRN PRN Reason: Heartburn/Nausea Dextrose (Dextrose 50 % 25 Gm/50 Ml Syringe) 25 gm IVPUSH Q15M PRN; Protocol PRN Reason: per Hypoglycemia Standing Ord. Divalproex Sodium (Divalproex Sodium 500 Mg Tablet.Dr) 1,500 mg PO 1800 [facility] Last Admin: 07/11/23 17:38 Dose: 1,500 mg Escitalopram Oxalate (Escitalopram Oxalate 10 Mg Tablet) 10 mg PO DAILY [facility] Last Admin: 07/12/23 08:24 Dose: 10 mg Glucose (Glucose Gel 15 Gm Gel..Gram.) 15 gm PO Q15M PRN; Protocol PRN Reason: per Hypoglycemia Standing Ord. Hydroxyzine HCl (Hydroxyzine Hcl 25 Mg Tablet) 25 mg PO Q6H PRN PRN Reason: Anxiety Last Admin: 07/07/23 04:32 Dose: 25 mg Hydroxyzine HCl (Hydroxyzine Hcl 50 Mg Tablet) 50 mg PO BEDTIME PRN PRN Reason: insomnia Last Admin: 07/09/23 02:21 Dose: 50 mg Insulin Glargine (Insulin Glargine,Hum.Rec.Anlog 100 Unit/Ml 10 Ml Vial) 28 unit SUBCUT DAILY [facility] Last Admin: 07/12/23 08:28 Dose: 28 unit Insulin Human Lispro (Insulin Lispro 100 Unit/Ml 3 Ml Vial) 0 unit SUBCUT QIDACHS [facility]; Protocol Last Admin: 07/12/23 12:24 Dose: 4 unit Levothyroxine Sodium (Levothyroxine Sodium 125 Mcg Tablet) 125 mcg PO DAILY@0600 [facility] Last Admin: 07/12/23 05:56 Dose: 125 mcg Lidocaine (Lidocaine 4 % Patch Adh..Patch) 1 patch TRANSDERMA DAILY [facility]; Protocol Last Admin: 07/12/23 08:44 Dose: 1 patch Lisinopril (Lisinopril 10 Mg Tablet) 10 mg PO DAILY [facility]; Protocol Last Admin: 07/12/23 08:24 Dose: 10 mg [place] Carbonate ([place] Carbonate 300 Mg Tablet) 450 mg PO BID [facility] Last Admin: 07/12/23 08:24 Dose: 450 mg Loratadine (Loratadine 10 Mg Tablet) 10 mg PO DAILY PRN PRN Reason: allergy sx Magnesium Hydroxide (Milk Of Magnesia 30 Ml Oral.Susp) 30 ml PO DAILY PRN PRN Reason: Constipation Magnesium Oxide (Magnesium Oxide 400 Mg Tablet) 400 mg PO DAILY [facility] Last Admin: 07/12/23 08:24 Dose: 400 mg Multi-Ingred Cream/Lotion/Oil/Oint (Artificial Tears Ophth Oint 3.5 Gm Tube) 2 appl EYE-BOTH TID PRN; Protocol PRN Reason: Dry Eyes Last Admin: 07/11/23 11:44 Dose: 2 appl Olanzapine (Olanzapine 5 Mg Tablet) 25 mg PO BEDTIME [facility] Last Admin: 07/11/23 20:22 Dose: 25 mg Propranolol HCl (Propranolol Hcl 40 Mg Tablet) 80 mg PO TID [facility]; Protocol Last Admin: 07/12/23 08:24 Dose: 80 mg Risperidone (Risperidone 0.5 Mg Tablet) 0.5 mg PO DAILY [facility] Last Admin: 07/12/23 08:24 Dose: 0.5 mg Trazodone HCl (Trazodone Hcl 100 Mg Tablet) 100 mg PO BEDTIME MRX1 PRN PRN Reason: Insomnia Last Admin: 07/11/23 20:21 Dose: 100 mg Allergies Allergies Allergy/AdvReac Type Severity Reaction Status Date / Time haloperidol [From Haldol] AdvReac Unknown Verified 10/28/20 06:32 Assessment & Plan Assessment & Plan (1) Schizoaffective disorder, bipolar type: Status: Acute Code(s): F25.0 - Schizoaffective disorder, bipolar type Plan 63 yo female, hx of schizoaffective disorder, bipolar type with some sx of psychosis and arnoldo. Will check levels. TSH 6.43, Mg 1.5 and Na 133. Plan: Collateral contact EKG, Valproate, [place] levels Magnesium Oxide 400 mg daily Increase Olanzapine to 20 mg HS 07/07/23: Increase Valproate to 1500 mg daily Increase [place] to 450 mg bid TSH, BMP on 07/10. 07/08/23 continue tx plan 07/09/23 continue treatment plan 07/11/23 Increase Olanzapine to 25 mg HS. 07/12/23 Decrease Olanzapine to 10 mg-today we are informed of a Ad's treatment order Informed Consent: does not understand Reason for continued inpatient stay Substantial Risk for: rapid decompensation Time Spent With Patient Time: Total time managing care of this patient today ____ minutes.
[2023-07-12 14:52] VITALS: BP 123/64; PULSE 84
[2023-07-12 17:10] LABS: Glucose, Whole Blood 230 mg/dL (60-115)
[2023-07-12] MEDS: Divalproex Sodium 500 MG TABLET.DR 1500 MG PO (17:21)
[2023-07-12 18:00] VITALS: BP 117/81; PULSE 69; RESP 18; TEMP 36.2; O2SAT 94
[2023-07-12] MEDS: traZODone HCL 100 MG TABLET PO (20:14)
[2023-07-12] MEDS: OLANZapine 10 MG TABLET PO (20:14)
[2023-07-12 20:22] VITALS: BP 141/63; PULSE 70; RESP 18
[2023-07-13] MEDS: traZODone HCL 100 MG TABLET PO (03:37)
[2023-07-13] MEDS: hydrOXYzine HCL 50 MG TABLET PO (03:37)
[2023-07-13] MEDS: Levothyroxine Sodium 125 MCG TABLET PO (06:19)
[2023-07-13] MEDS: risperiDONE 1 MG TABLET PO (08:10)
[2023-07-13] MEDS: Lithium Carbonate 300 MG TABLET 450 MG PO (08:10)
[2023-07-13] MEDS: Escitalopram Oxalate 10 MG TABLET PO (08:10)
[2023-07-13] MEDS: Propranolol HCL 40 MG TABLET 80 MG PO ×2 (08:11→14:41)
[2023-07-13 08:12] LABS: Glucose, Whole Blood 256 mg/dL (60-115)
[2023-07-13] MEDS: Lidocaine 4 % Patch ADH..PATCH 1 PATCH TRANSDERMA (08:12)
[2023-07-13] MEDS: Insulin Glargine,Hum.rec.anlog 100 UNIT/ML 10 ML VIAL 28 UNIT SUBCUT (08:14)
[2023-07-13 08:15] VITALS: BP 117/69; PULSE 74; RESP 18; TEMP 36.2; O2SAT 94
[2023-07-13] MEDS: Insulin Lispro 100 UNIT/ML 3 ML VIAL SUBCUT ×3 (08:15→17:39)
[2023-07-13] MEDS: lisinopriL 10 MG TABLET PO (08:47)
[2023-07-13] MEDS: Magnesium Oxide 400 MG TABLET PO (08:47)
[2023-07-13 10:53] VITALS: BMI 38.2
[2023-07-13 12:19] LABS: Glucose, Whole Blood 239 mg/dL (60-115)
[2023-07-13 14:44] VITALS: BP 127/68; PULSE 84; RESP 18
--- NOTE | 2023-07-13 17:22 | HO.PSYCHPN ---
Subjective Subjective Date of Service: 07/13/23 Reason For Visit: Psychosis Subjective Notes: Conditional Voluntary Healthcare Proxy: No Guardianship: No Medical Problems Affecting Mental Status: No Interim History: Pt visable in milieu at times. Distracted, labile, possibly from decrease in Olanzapine to adhere to [place] order. Denies sx Medication Compliance: Yes Side effects from medications: No Attending Groups: No Review of Systems Acute medical concerns: No Medical Review of Systems: unchanged Review of Systems Review of Systems Yes all other systems are reviewed and are negative Mental Status Exam Mental Status Exam Patient Appearance: Appropriate Patient Orientation: Person and Place Level of Consciousness: Alert Patient Behavior: Talkative, Distractible and Good Eye Contact Mood Description: Cheerful and Labile Affect Description: Cheerful and Labile Patient Cognition Impaired: Yes Ability to Follow Directions: Fair Speech Pattern: Spontaneous Speech Memory Description: Remote Impaired Delusions: Present Thought Process: Illogical and Distracted Thought Content: positive for Flight of Ideas, positive for Racing, positive for Circumstantial, positive for Loose Associations, positive for Tangential, positive for Disorganized and positive for Suicidal Ideation (denies) Depressive Symptoms: Increased Anxiety and Thoughts of /Suicide (denies) Judgement: Fair Diagnostics Vital Signs (24Hr): Vital Signs - 24 hr 07/12/23 18:00 07/12/23 20:22 07/13/23 08:15 Temperature 97.1 F 97.1 F Pulse Rate 69 70 74 Respiratory Rate 18 18 18 Blood Pressure 117/81 141/63 H 117/69 Pulse Oximetry 94 94 Oxygen Delivery Method Room Air Room Air 07/13/23 14:44 Temperature Pulse Rate 84 Respiratory Rate 18 Blood Pressure 127/68 Pulse Oximetry Oxygen Delivery Method BMI result Body Mass Index 38.2 Labs 07/06/23 07:59 Labs: Laboratory Results - last 48 hr 07/11/23 07/12/23 07/12/23 20:28 07:43 12:06 POC Glucose 326 H 307 H 246 H 07/12/23 07/13/23 07/13/23 17:05 07:59 12:13 POC Glucose 230 H 256 H 239 H Medications Medications Current Medications Acetaminophen (Acetaminophen 325 Mg Tablet) 650 mg PO Q6H PRN PRN Reason: Headache/Pain Mild Scale (1-3) Last Admin: 07/07/23 17:29 Dose: 650 mg Al Hydroxide/Mg Hydroxide (Magnesium Hydrox/Alum Hydrox 30 Ml Oral.Susp) 30 ml PO Q6H PRN PRN Reason: Heartburn/Nausea Dextrose (Dextrose 50 % 25 Gm/50 Ml Syringe) 25 gm IVPUSH Q15M PRN; Protocol PRN Reason: per Hypoglycemia Standing Ord. Divalproex Sodium (Divalproex Sodium 500 Mg Tablet.) 1,500 mg PO 1800 [facility] Last Admin: 07/12/23 17:21 Dose: 1,500 mg Escitalopram Oxalate (Escitalopram Oxalate 10 Mg Tablet) 10 mg PO DAILY [facility] Last Admin: 07/13/23 08:10 Dose: 10 mg Glucose (Glucose Gel 15 Gm Gel..Gram.) 15 gm PO Q15M PRN; Protocol PRN Reason: per Hypoglycemia Standing Ord. Hydroxyzine HCl (Hydroxyzine Hcl 25 Mg Tablet) 25 mg PO Q6H PRN PRN Reason: Anxiety Last Admin: 07/07/23 04:32 Dose: 25 mg Hydroxyzine HCl (Hydroxyzine Hcl 50 Mg Tablet) 50 mg PO BEDTIME PRN PRN Reason: insomnia Last Admin: 07/13/23 03:37 Dose: 50 mg Insulin Glargine (Insulin Glargine,Hum.Rec.Anlog 100 Unit/Ml 10 Ml Vial) 28 unit SUBCUT DAILY [facility] Last Admin: 07/13/23 08:14 Dose: 28 unit Insulin Human Lispro (Insulin Lispro 100 Unit/Ml 3 Ml Vial) 0 unit SUBCUT QIDACHS [facility]; Protocol Last Admin: 07/13/23 12:30 Dose: 4 unit Levothyroxine Sodium (Levothyroxine Sodium 125 Mcg Tablet) 125 mcg PO DAILY@0600 [facility] Last Admin: 07/13/23 06:19 Dose: 125 mcg Lidocaine (Lidocaine 4 % Patch Adh..Patch) 1 patch TRANSDERMA DAILY [facility]; Protocol Last Admin: 07/13/23 08:12 Dose: 1 patch Lisinopril (Lisinopril 10 Mg Tablet) 10 mg PO DAILY [facility]; Protocol Last Admin: 07/13/23 08:47 Dose: 10 mg [place] Carbonate ([place] Carbonate 300 Mg Tablet) 450 mg PO BID [facility] Last Admin: 07/13/23 08:10 Dose: 450 mg Loratadine (Loratadine 10 Mg Tablet) 10 mg PO DAILY PRN PRN Reason: allergy sx Magnesium Hydroxide (Milk Of Magnesia 30 Ml Oral.Susp) 30 ml PO DAILY PRN PRN Reason: Constipation Magnesium Oxide (Magnesium Oxide 400 Mg Tablet) 400 mg PO DAILY [facility] Last Admin: 07/13/23 08:47 Dose: 400 mg Multi-Ingred Cream/Lotion/Oil/Oint (Artificial Tears Ophth Oint 3.5 Gm Tube) 2 appl EYE-BOTH TID PRN; Protocol PRN Reason: Dry Eyes Last Admin: 07/11/23 11:44 Dose: 2 appl Olanzapine (Olanzapine 10 Mg Tablet) 10 mg PO BEDTIME [facility] Last Admin: 07/12/23 20:14 Dose: 10 mg Propranolol HCl (Propranolol Hcl 40 Mg Tablet) 80 mg PO TID [facility]; Protocol Last Admin: 07/13/23 14:41 Dose: 80 mg Risperidone (Risperidone 1 Mg Tablet) 1 mg PO DAILY [facility] Last Admin: 07/13/23 08:10 Dose: 1 mg Trazodone HCl (Trazodone Hcl 100 Mg Tablet) 100 mg PO BEDTIME MRX1 PRN PRN Reason: Insomnia Last Admin: 07/13/23 03:37 Dose: 100 mg Allergies Allergies Allergy/AdvReac Type Severity Reaction Status Date / Time haloperidol [From Haldol] AdvReac Unknown Verified 10/28/20 06:32 Assessment & Plan Assessment & Plan (1) Schizoaffective disorder, bipolar type: Status: Acute Code(s): F25.0 - Schizoaffective disorder, bipolar type Plan 63 yo female, hx of schizoaffective disorder, bipolar type with some sx of psychosis and arnoldo. Will check levels. TSH 6.43, Mg 1.5 and Na 133. Plan: Collateral contact EKG, Valproate, [place] levels Magnesium Oxide 400 mg daily Increase Olanzapine to 20 mg HS 07/07/23: Increase Valproate to 1500 mg daily Increase [place] to 450 mg bid TSH, BMP on 07/10. 07/08/23 continue tx plan 07/09/23 continue treatment plan 07/11/23 Increase Olanzapine to 25 mg HS. 07/13/23 continue tx Informed Consent: does not understand Reason for continued inpatient stay Substantial Risk for: rapid decompensation Time Spent With Patient Time: Total time managing care of this patient today ____ minutes.
[2023-07-13 17:33] LABS: Glucose, Whole Blood 211 mg/dL (60-115)
[2023-07-13] MEDS: Divalproex Sodium 500 MG TABLET.DR 1500 MG PO (17:39)
[2023-07-13 19:10] VITALS: BP 143/65; PULSE 75; RESP 16; TEMP 36.2; O2SAT 96
[2023-07-14] MEDS: Levothyroxine Sodium 125 MCG TABLET PO (06:15)
[2023-07-14 07:50] VITALS: BP 165/74; PULSE 63; RESP 16; TEMP 36.1; O2SAT 94
[2023-07-14 07:55] LABS: Glucose, Whole Blood 176 mg/dL (60-115)
[2023-07-14] MEDS: Propranolol HCL 40 MG TABLET 80 MG PO ×3 (08:25→14:22)
[2023-07-14] MEDS: Escitalopram Oxalate 10 MG TABLET PO (08:25)
[2023-07-14] MEDS: lisinopriL 10 MG TABLET PO (08:25)
[2023-07-14] MEDS: Lithium Carbonate 300 MG TABLET 450 MG PO (08:25)
[2023-07-14] MEDS: Insulin Glargine,Hum.rec.anlog 100 UNIT/ML 10 ML VIAL 28 UNIT SUBCUT (08:26)
[2023-07-14] MEDS: Insulin Lispro 100 UNIT/ML 3 ML VIAL SUBCUT ×4 (08:26→20:54)
[2023-07-14] MEDS: Magnesium Oxide 400 MG TABLET PO (08:26)
[2023-07-14 12:28] LABS: Glucose, Whole Blood 282 mg/dL (60-115)
--- NOTE | 2023-07-14 16:14 | P.PNPSI_ITS ---
Subjective Subjective Date of Service: 07/14/23 Reason For Visit: Psychosis Subjective Notes: Conditional Voluntary Healthcare Proxy: No Guardianship: No Medical Problems Affecting Mental Status: No Interim History: Pt reports she is feeling very well. Team reports pt slept for 9 hours last night Today she reports no symptoms of concern. She is calmer, speech is slower and she remains positive and attentive Medication Compliance: Yes Side effects from medications: No Attending Groups: No Review of Systems Acute medical concerns: No Medical Review of Systems: unchanged Review of Systems Review of Systems Yes all other systems are reviewed and are negative (pt denies) Mental Status Exam Mental Status Exam Patient Appearance: Appropriate Patient Orientation: Person and Place Level of Consciousness: Alert Patient Behavior: Talkative, Distractible and Good Eye Contact Mood Description: Calm Affect Description: Calm Patient Cognition Impaired: Yes Ability to Follow Directions: Good Speech Pattern: Spontaneous Speech Memory Description: Remote Impaired Hallucinations: None Delusions: Present Thought Process: Distracted Thought Content: positive for Circumstantial, positive for Tangential and positive for Suicidal Ideation (denies) Depressive Symptoms: Thoughts of /Suicide (denies) Judgement: Fair Diagnostics Vital Signs (24Hr): Vital Signs - 24 hr 07/13/23 19:10 07/14/23 07:50 Temperature 97.2 F 97 F Pulse Rate 75 63 Respiratory Rate 16 16 Blood Pressure 143/65 H 165/74 H Pulse Oximetry 96 94 Oxygen Delivery Method Room Air Room Air BMI result Body Mass Index 38.2 Labs 07/06/23 07:59 Labs: Laboratory Results - last 48 hr 07/12/23 07/13/23 07/13/23 17:05 07:59 12:13 POC Glucose 230 H 256 H 239 H 07/13/23 07/14/23 07/14/23 17:29 07:51 12:23 POC Glucose 211 H 176 H 282 H Medications Medications Current Medications Acetaminophen (Acetaminophen 325 Mg Tablet) 650 mg PO Q6H PRN PRN Reason: Headache/Pain Mild Scale (1-3) Last Admin: 07/07/23 17:29 Dose: 650 mg Al Hydroxide/Mg Hydroxide (Magnesium Hydrox/Alum Hydrox 30 Ml Oral.Susp) 30 ml PO Q6H PRN PRN Reason: Heartburn/Nausea Dextrose (Dextrose 50 % 25 Gm/50 Ml Syringe) 25 gm IVPUSH Q15M PRN; Protocol PRN Reason: per Hypoglycemia Standing Ord. Divalproex Sodium (Divalproex Sodium 500 Mg Tablet.) 1,500 mg PO 1800 [facility] Last Admin: 07/13/23 17:39 Dose: 1,500 mg Escitalopram Oxalate (Escitalopram Oxalate 10 Mg Tablet) 10 mg PO DAILY [facility] Last Admin: 07/14/23 08:25 Dose: 10 mg Glucose (Glucose Gel 15 Gm Gel..Gram.) 15 gm PO Q15M PRN; Protocol PRN Reason: per Hypoglycemia Standing Ord. Hydroxyzine HCl (Hydroxyzine Hcl 25 Mg Tablet) 25 mg PO Q6H PRN PRN Reason: Anxiety Last Admin: 07/07/23 04:32 Dose: 25 mg Hydroxyzine HCl (Hydroxyzine Hcl 50 Mg Tablet) 50 mg PO BEDTIME PRN PRN Reason: insomnia Last Admin: 07/13/23 03:37 Dose: 50 mg Insulin Glargine (Insulin Glargine,Hum.Rec.Anlog 100 Unit/Ml 10 Ml Vial) 28 unit SUBCUT DAILY [facility] Last Admin: 07/14/23 08:26 Dose: 28 unit Insulin Human Lispro (Insulin Lispro 100 Unit/Ml 3 Ml Vial) 0 unit SUBCUT QIDACHS [facility]; Protocol Last Admin: 07/14/23 13:11 Dose: 6 unit Levothyroxine Sodium (Levothyroxine Sodium 125 Mcg Tablet) 125 mcg PO DAILY@0600 [facility] Last Admin: 07/14/23 06:15 Dose: 125 mcg Lidocaine (Lidocaine 4 % Patch Adh..Patch) 1 patch TRANSDERMA DAILY [facility]; Protocol Last Admin: 07/14/23 08:31 Dose: Not Given Lisinopril (Lisinopril 10 Mg Tablet) 10 mg PO DAILY [facility]; Protocol Last Admin: 07/14/23 08:25 Dose: 10 mg [place] Carbonate ([place] Carbonate 300 Mg Tablet) 450 mg PO BID [facility] Last Admin: 07/14/23 08:25 Dose: 450 mg Loratadine (Loratadine 10 Mg Tablet) 10 mg PO DAILY PRN PRN Reason: allergy sx Magnesium Hydroxide (Milk Of Magnesia 30 Ml Oral.Susp) 30 ml PO DAILY PRN PRN Reason: Constipation Magnesium Oxide (Magnesium Oxide 400 Mg Tablet) 400 mg PO DAILY [facility] Last Admin: 07/14/23 08:26 Dose: 400 mg Multi-Ingred Cream/Lotion/Oil/Oint (Artificial Tears Ophth Oint 3.5 Gm Tube) 2 appl EYE-BOTH TID PRN; Protocol PRN Reason: Dry Eyes Last Admin: 07/11/23 11:44 Dose: 2 appl Olanzapine (Olanzapine 10 Mg Tablet) 10 mg PO BEDTIME [facility] Last Admin: 07/14/23 03:36 Dose: Not Given Propranolol HCl (Propranolol Hcl 40 Mg Tablet) 80 mg PO TID [facility]; Protocol Last Admin: 07/14/23 14:22 Dose: 80 mg Risperidone (Risperidone 1 Mg Tablet) 1 mg PO DAILY [facility] Last Admin: 07/14/23 08:29 Dose: Not Given Trazodone HCl (Trazodone Hcl 100 Mg Tablet) 100 mg PO BEDTIME MRX1 PRN PRN Reason: Insomnia Last Admin: 07/13/23 03:37 Dose: 100 mg Allergies Allergies Allergy/AdvReac Type Severity Reaction Status Date / Time haloperidol [From Haldol] AdvReac Unknown Verified 10/28/20 06:32 Assessment & Plan Assessment & Plan (1) Schizoaffective disorder, bipolar type: Status: Acute Code(s): F25.0 - Schizoaffective disorder, bipolar type Plan 63 yo female, hx of schizoaffective disorder, bipolar type with some sx of psychosis and arnoldo. Will check levels. TSH 6.43, Mg 1.5 and Na 133. Plan: Collateral contact EKG, Valproate, [place] levels Magnesium Oxide 400 mg daily Increase Olanzapine to 20 mg HS 07/07/23: Increase Valproate to 1500 mg daily Increase [place] to 450 mg bid TSH, BMP on 07/10. 07/08/23 continue tx plan 07/09/23 continue treatment plan 07/11/23 Increase Olanzapine to 25 mg HS. 07/13/23 continue tx 07/14/23 Continue tx Informed Consent: further education needed Reason for continued inpatient stay Substantial Risk for: rapid decompensation Time Spent With Patient Time: Total time managing care of this patient today ____ minutes.
[2023-07-14 17:23] LABS: Glucose, Whole Blood 302 mg/dL (60-115)
[2023-07-14] MEDS: Divalproex Sodium 500 MG TABLET.DR 1500 MG PO (17:32)
--- NOTE | 2023-07-14 20:13 | PC.NURSE ---
PT allowed one attempt at blood draw for [place] level which was unsuccessful. PT refused another try. ROSARIO Nicolas made aware.
[2023-07-14 20:45] VITALS: BP 147/67; PULSE 73; RESP 16; TEMP 36.1; O2SAT 95
[2023-07-14 20:53] LABS: Glucose, Whole Blood 297 mg/dL (60-115)
[2023-07-15] MEDS: Levothyroxine Sodium 125 MCG TABLET PO (05:37)
[2023-07-15 08:03] LABS: Glucose, Whole Blood 214 mg/dL (60-115)
[2023-07-15 09:00] VITALS: BP 128/62; PULSE 68; RESP 16; TEMP 36; O2SAT 97
[2023-07-15] MEDS: Magnesium Oxide 400 MG TABLET PO (09:02)
[2023-07-15] MEDS: lisinopriL 10 MG TABLET PO (09:02)
[2023-07-15] MEDS: Escitalopram Oxalate 10 MG TABLET PO (09:03)
[2023-07-15] MEDS: Propranolol HCL 40 MG TABLET 80 MG PO ×3 (09:03→22:12)
[2023-07-15] MEDS: risperiDONE 1 MG TABLET PO (09:03)
[2023-07-15] MEDS: Lithium Carbonate 300 MG TABLET 450 MG PO ×2 (09:03→22:13)
[2023-07-15] MEDS: Insulin Lispro 100 UNIT/ML 3 ML VIAL SUBCUT ×4 (09:05→22:18)
[2023-07-15] MEDS: Insulin Glargine,Hum.rec.anlog 100 UNIT/ML 10 ML VIAL 28 UNIT SUBCUT (09:06)
--- NOTE | 2023-07-15 10:56 | HO.PSYCHPN ---
Subjective Subjective Date of Service: 07/15/23 Reason For Visit: Psychosis Interim History: met with patient. Discussed with Nursing. Met with Arabic-speaking nursing staff. Patient has been very pleasant. Some disinhibition. Aware of month, year, where she is in staff members. Did make a statement about people may be wanting to kill her, but reported feeling safe in the hospital. Regarding medications stated Depakote was a vitamin for her. No concerns regarding sleep energy or appetite. Declined lithium level this morning, will reordered for tomorrow Medication Compliance: Yes Side effects from medications: No Attending Groups: No Review of Systems Review of Systems unremarkable Mental Status Exam Mental Status Exam Narrative: pleasant. Hospital clothing. Fair self-care. Engaged. Alert and oriented. Is tangential Does appear slightly elated. No SI. No HI. May have some paranoia. Insight and judgment slowly improving Diagnostics Vital Signs (24Hr): Vital Signs - 24 hr 07/14/23 20:45 07/15/23 09:00 Temperature 97.0 F 96.8 F Pulse Rate 73 68 Respiratory Rate 16 16 Blood Pressure 147/67 H 128/62 Pulse Oximetry 95 97 Oxygen Delivery Method Room Air Room Air BMI result Body Mass Index 38.2 Labs 07/06/23 07:59 Labs: Laboratory Results - last 48 hr 07/13/23 07/13/23 07/14/23 12:13 17:29 07:51 POC Glucose 239 H 211 H 176 H 07/14/23 07/14/23 07/14/23 12:23 17:19 20:40 POC Glucose 282 H 302 H 297 H 07/15/23 07:54 POC Glucose 214 H Medications Medications Current Medications Acetaminophen (Acetaminophen 325 Mg Tablet) 650 mg PO Q6H PRN PRN Reason: Headache/Pain Mild Scale (1-3) Last Admin: 07/07/23 17:29 Dose: 650 mg Al Hydroxide/Mg Hydroxide (Magnesium Hydrox/Alum Hydrox 30 Ml Oral.Susp) 30 ml PO Q6H PRN PRN Reason: Heartburn/Nausea Dextrose (Dextrose 50 % 25 Gm/50 Ml Syringe) 25 gm IVPUSH Q15M PRN; Protocol PRN Reason: per Hypoglycemia Standing Ord. Divalproex Sodium (Divalproex Sodium 500 Mg Tablet.) 1,500 mg PO 1800 [facility] Last Admin: 07/14/23 17:32 Dose: 1,500 mg Escitalopram Oxalate (Escitalopram Oxalate 10 Mg Tablet) 10 mg PO DAILY [facility] Last Admin: 07/15/23 09:03 Dose: 10 mg Glucose (Glucose Gel 15 Gm Gel..Gram.) 15 gm PO Q15M PRN; Protocol PRN Reason: per Hypoglycemia Standing Ord. Hydroxyzine HCl (Hydroxyzine Hcl 25 Mg Tablet) 25 mg PO Q6H PRN PRN Reason: Anxiety Last Admin: 07/07/23 04:32 Dose: 25 mg Hydroxyzine HCl (Hydroxyzine Hcl 50 Mg Tablet) 50 mg PO BEDTIME PRN PRN Reason: insomnia Last Admin: 07/13/23 03:37 Dose: 50 mg Insulin Glargine (Insulin Glargine,Hum.Rec.Anlog 100 Unit/Ml 10 Ml Vial) 28 unit SUBCUT DAILY [facility] [place] Last Admin: 07/15/23 09:06 Dose: 28 unit Insulin Human Lispro (Insulin Lispro 100 Unit/Ml 3 Ml Vial) 0 unit SUBCUT QIDACHS [facility] [place]; Protocol Last Admin: 07/15/23 09:05 Dose: 4 unit Levothyroxine Sodium (Levothyroxine Sodium 125 Mcg Tablet) 125 mcg PO DAILY@0600 [facility] [place] Last Admin: 07/15/23 05:37 Dose: 125 mcg Lidocaine (Lidocaine 4 % Patch Adh..Patch) 1 patch TRANSDERMA DAILY [facility] [place]; Protocol Last Admin: 07/15/23 09:06 Dose: Not Given Lisinopril (Lisinopril 10 Mg Tablet) 10 mg PO DAILY [facility] [place]; Protocol Last Admin: 07/15/23 09:02 Dose: 10 mg [place] Carbonate ([place] Carbonate 300 Mg Tablet) 450 mg PO BID [facility] [place] Last Admin: 07/15/23 09:03 Dose: 450 mg Loratadine (Loratadine 10 Mg Tablet) 10 mg PO DAILY PRN PRN Reason: allergy sx Magnesium Hydroxide (Milk Of Magnesia 30 Ml Oral.Susp) 30 ml PO DAILY PRN PRN Reason: Constipation Magnesium Oxide (Magnesium Oxide 400 Mg Tablet) 400 mg PO DAILY [facility] [place] Last Admin: 07/15/23 09:02 Dose: 400 mg Multi-Ingred Cream/Lotion/Oil/Oint (Artificial Tears Ophth Oint 3.5 Gm Tube) 2 appl EYE-BOTH TID PRN; Protocol PRN Reason: Dry Eyes Last Admin: 07/11/23 11:44 Dose: 2 appl Olanzapine (Olanzapine 10 Mg Tablet) 10 mg PO BEDTIME [facility] Last Admin: 07/14/23 20:56 Dose: Not Given Propranolol HCl (Propranolol Hcl 40 Mg Tablet) 80 mg PO TID [facility]; Protocol Last Admin: 07/15/23 09:03 Dose: 80 mg Risperidone (Risperidone 1 Mg Tablet) 1 mg PO DAILY [facility] [place] Last Admin: 07/15/23 09:03 Dose: 1 mg Trazodone HCl (Trazodone Hcl 100 Mg Tablet) 100 mg PO BEDTIME MRX1 PRN PRN Reason: Insomnia Last Admin: 07/13/23 03:37 Dose: 100 mg Allergies Allergies Allergy/AdvReac Type Severity Reaction Status Date / Time haloperidol [From Haldol] AdvReac Unknown Verified 10/28/20 06:32 Assessment & Plan Assessment & Plan (1) Schizoaffective disorder, bipolar type: Status: Acute Code(s): F25.0 - Schizoaffective disorder, bipolar type Plan 63 yo female, hx of schizoaffective disorder, bipolar type with some sx of psychosis and arnoldo. Will check levels. TSH 6.43, Mg 1.5 and Na 133. Plan: Collateral contact EKG, Valproate, [place] levels Magnesium Oxide 400 mg daily Increase Olanzapine to 20 mg HS 07/07/23: Increase Valproate to 1500 mg daily Increase [place] to 450 mg bid TSH, BMP on 07/10. 07/08/23 continue tx plan 07/09/23 continue treatment plan 07/11/23 Increase Olanzapine to 25 mg HS. 07/13/23 continue tx 07/14/23 Continue tx 07/15: no changes. [place] level ordered for tomorrow as declined today. Reason for continued inpatient stay Substantial Risk for: inability to function Time Spent With Patient Time: Total time managing care of this patient today ____ minutes.
[2023-07-15 12:16] LABS: Glucose, Whole Blood 274 mg/dL (60-115)
[2023-07-15 14:26] VITALS: BP 134/74; PULSE 74
[2023-07-15 17:11] LABS: Glucose, Whole Blood 360 mg/dL (60-115)
[2023-07-15] MEDS: Divalproex Sodium 500 MG TABLET.DR 1500 MG PO (17:53)
[2023-07-15 18:00] VITALS: BP 114/63; PULSE 78; RESP 16; TEMP 36.2; O2SAT 96
[2023-07-15 22:07] LABS: Glucose, Whole Blood 289 mg/dL (60-115)
[2023-07-15] MEDS: OLANZapine 10 MG TABLET PO (22:12)
[2023-07-15] MEDS: traZODone HCL 100 MG TABLET PO (22:14)
[2023-07-16] MEDS: Levothyroxine Sodium 125 MCG TABLET PO (06:20)
[2023-07-16 08:05] LABS: Glucose, Whole Blood 219 mg/dL (60-115)
[2023-07-16 08:22] LABS: Lithium 1.15 mmol/L (0.60-1.20)
[2023-07-16 08:45] VITALS: BP 120/60; PULSE 64; RESP 18; TEMP 36; O2SAT 98
[2023-07-16] MEDS: Escitalopram Oxalate 10 MG TABLET PO (08:50)
[2023-07-16] MEDS: risperiDONE 1 MG TABLET PO (08:50)
[2023-07-16] MEDS: lisinopriL 10 MG TABLET PO (08:50)
[2023-07-16] MEDS: Magnesium Oxide 400 MG TABLET PO (08:50)
[2023-07-16] MEDS: Lithium Carbonate 300 MG TABLET 450 MG PO ×2 (08:50→20:09)
[2023-07-16] MEDS: Propranolol HCL 40 MG TABLET 80 MG PO ×2 (08:50→20:08)
[2023-07-16] MEDS: Insulin Lispro 100 UNIT/ML 3 ML VIAL SUBCUT ×3 (08:53→20:10)
[2023-07-16] MEDS: Insulin Glargine,Hum.rec.anlog 100 UNIT/ML 10 ML VIAL 28 UNIT SUBCUT (08:53)
--- NOTE | 2023-07-16 12:14 | HO.PSYCHPN ---
Subjective Subjective Date of Service: 07/16/23 Reason For Visit: Psychosis Interim History: met with patient. Discussed with Nursing. Met with Polish-speaking nursing staff. Patient has been very pleasant. Some disinhibition. Was more rel;igious focused today, singing, giuving advice dont play with Gods name, pray for your mother and dont kill anybody . Reported feeling safe in the hospital. [place] level 1.15. No concerns regarding sleep energy or appetite. Medication Compliance: Yes Side effects from medications: No Attending Groups: No Review of Systems Acute medical concerns: No Review of Systems Review of Systems unremarkable Mental Status Exam Mental Status Exam Narrative: pleasant. Hospital clothing. Fair self-care. Engaged. Alert and oriented. Is tangential Elated. No SI. No HI. May have some paranoia. Yazidism focused. Insight and judgment slowly improving Diagnostics Vital Signs (24Hr): Vital Signs - 24 hr 07/15/23 14:26 07/15/23 18:00 07/16/23 08:45 Temperature 97.1 F 96.8 F Pulse Rate 74 78 64 Respiratory Rate 16 18 Blood Pressure 134/74 114/63 120/60 Pulse Oximetry 96 98 Oxygen Delivery Method Room Air Room Air BMI result Body Mass Index 38.2 Labs 07/06/23 07:59 Labs: Laboratory Results - last 48 hr 07/14/23 07/14/23 07/14/23 12:23 17:19 20:40 POC Glucose 282 H 302 H 297 H [place] 07/15/23 07/15/23 07/15/23 07:54 12:11 16:50 POC Glucose 214 H 274 H 360 H* [place] 07/15/23 07/16/23 07/16/23 22:02 07:43 07:50 POC Glucose 289 H 219 H [place] 1.15 Medications Medications Current Medications Acetaminophen (Acetaminophen 325 Mg Tablet) 650 mg PO Q6H PRN PRN Reason: Headache/Pain Mild Scale (1-3) Last Admin: 07/07/23 17:29 Dose: 650 mg Al Hydroxide/Mg Hydroxide (Magnesium Hydrox/Alum Hydrox 30 Ml Oral.Susp) 30 ml PO Q6H PRN PRN Reason: Heartburn/Nausea Dextrose (Dextrose 50 % 25 Gm/50 Ml Syringe) 25 gm IVPUSH Q15M PRN; Protocol PRN Reason: per Hypoglycemia Standing Ord. Divalproex Sodium (Divalproex Sodium 500 Mg Tablet.) 1,500 mg PO 1800 [facility] Last Admin: 07/15/23 17:53 Dose: 1,500 mg Escitalopram Oxalate (Escitalopram Oxalate 10 Mg Tablet) 10 mg PO DAILY [facility] Last Admin: 07/16/23 08:50 Dose: 10 mg Glucose (Glucose Gel 15 Gm Gel..Gram.) 15 gm PO Q15M PRN; Protocol PRN Reason: per Hypoglycemia Standing Ord. Hydroxyzine HCl (Hydroxyzine Hcl 25 Mg Tablet) 25 mg PO Q6H PRN PRN Reason: Anxiety Last Admin: 07/07/23 04:32 Dose: 25 mg Hydroxyzine HCl (Hydroxyzine Hcl 50 Mg Tablet) 50 mg PO BEDTIME PRN PRN Reason: insomnia Last Admin: 07/13/23 03:37 Dose: 50 mg Insulin Glargine (Insulin Glargine,Hum.Rec.Anlog 100 Unit/Ml 10 Ml Vial) 28 unit SUBCUT DAILY [facility] Last Admin: 07/16/23 08:53 Dose: 28 unit Insulin Human Lispro (Insulin Lispro 100 Unit/Ml 3 Ml Vial) 0 unit SUBCUT QIDACHS [facility]; Protocol Last Admin: 07/16/23 08:53 Dose: 4 unit Levothyroxine Sodium (Levothyroxine Sodium 125 Mcg Tablet) 125 mcg PO DAILY@0600 [facility] Last Admin: 07/16/23 06:20 Dose: 125 mcg Lidocaine (Lidocaine 4 % Patch Adh..Patch) 1 patch TRANSDERMA DAILY [facility]; Protocol Last Admin: 07/16/23 08:54 Dose: Not Given Lisinopril (Lisinopril 10 Mg Tablet) 10 mg PO DAILY [facility]; Protocol Last Admin: 07/16/23 08:50 Dose: 10 mg [place] Carbonate ([place] Carbonate 300 Mg Tablet) 450 mg PO BID [facility] Last Admin: 07/16/23 08:50 Dose: 450 mg Loratadine (Loratadine 10 Mg Tablet) 10 mg PO DAILY PRN PRN Reason: allergy sx Magnesium Hydroxide (Milk Of Magnesia 30 Ml Oral.Susp) 30 ml PO DAILY PRN PRN Reason: Constipation Magnesium Oxide (Magnesium Oxide 400 Mg Tablet) 400 mg PO DAILY [facility] Last Admin: 07/16/23 08:50 Dose: 400 mg Multi-Ingred Cream/Lotion/Oil/Oint (Artificial Tears Ophth Oint 3.5 Gm Tube) 2 appl EYE-BOTH TID PRN; Protocol PRN Reason: Dry Eyes Last Admin: 07/11/23 11:44 Dose: 2 appl Olanzapine (Olanzapine 10 Mg Tablet) 10 mg PO BEDTIME [facility] Last Admin: 07/15/23 22:12 Dose: 10 mg Propranolol HCl (Propranolol Hcl 40 Mg Tablet) 80 mg PO TID [facility]; Protocol Last Admin: 07/16/23 08:50 Dose: 80 mg Risperidone (Risperidone 1 Mg Tablet) 1 mg PO DAILY [facility] Last Admin: 07/16/23 08:50 Dose: 1 mg Trazodone HCl (Trazodone Hcl 100 Mg Tablet) 100 mg PO BEDTIME MRX1 PRN PRN Reason: Insomnia Last Admin: 07/15/23 22:14 Dose: 100 mg Allergies Allergies Allergy/AdvReac Type Severity Reaction Status Date / Time haloperidol [From Haldol] AdvReac Unknown Verified 10/28/20 06:32 Assessment & Plan Assessment & Plan (1) Schizoaffective disorder, bipolar type: Status: Acute Code(s): F25.0 - Schizoaffective disorder, bipolar type Plan 63 yo female, hx of schizoaffective disorder, bipolar type with some sx of psychosis and arnoldo. Will check levels. TSH 6.43, Mg 1.5 and Na 133. Plan: Collateral contact EKG, Valproate, [place] levels Magnesium Oxide 400 mg daily Increase Olanzapine to 20 mg HS 07/07/23: Increase Valproate to 1500 mg daily Increase [place] to 450 mg bid TSH, BMP on 07/10. 07/08/23 continue tx plan 07/09/23 continue treatment plan 07/11/23 Increase Olanzapine to 25 mg HS. 07/13/23 continue tx 07/14/23 Continue tx 07/15: no changes. [place] level ordered for tomorrow as declined today. 07/16: lithium level 1.15, no changes made Reason for continued inpatient stay Substantial Risk for: inability to function Time Spent With Patient Time: Total time managing care of this patient today ____ minutes.
[2023-07-16 12:24] LABS: Glucose, Whole Blood 245 mg/dL (60-115)
[2023-07-16 17:16] LABS: Glucose, Whole Blood 279 mg/dL (60-115)
[2023-07-16] MEDS: Divalproex Sodium 500 MG TABLET.DR 1500 MG PO (17:57)
[2023-07-16 19:55] VITALS: BP 115/54; PULSE 72; TEMP 36.2
[2023-07-16 20:01] LABS: Glucose, Whole Blood 271 mg/dL (60-115)
[2023-07-16] MEDS: OLANZapine 10 MG TABLET PO (20:08)
[2023-07-17] MEDS: Levothyroxine Sodium 125 MCG TABLET PO (06:32)
[2023-07-17 07:45] VITALS: BP 130/61; PULSE 68; RESP 15; TEMP 37; O2SAT 97
[2023-07-17 08:41] LABS: Glucose, Whole Blood 281 mg/dL (60-115)
[2023-07-17] MEDS: Propranolol HCL 40 MG TABLET 80 MG PO (10:01)
[2023-07-17] MEDS: risperiDONE 1 MG TABLET PO (10:01)
[2023-07-17] MEDS: Magnesium Oxide 400 MG TABLET PO (10:01)
[2023-07-17] MEDS: Lithium Carbonate 300 MG TABLET 450 MG PO ×2 (10:02→21:43)
[2023-07-17] MEDS: Escitalopram Oxalate 10 MG TABLET PO (10:03)
[2023-07-17] MEDS: lisinopriL 10 MG TABLET PO (10:03)
--- NOTE | 2023-07-17 15:07 | P.PNPSI_ITS ---
Subjective Subjective Date of Service: 07/17/23 Reason For Visit: Psychosis Subjective Notes: Conditional Voluntary Healthcare Proxy: No Guardianship: No Medical Problems Affecting Mental Status: No Interim History: Pt seen, discussed in team meeting. Pt awake, in bed, denies sx of concern, SE, issues. She asks not to return to her facility, intermittently refuses meds, then will take them at a later time. Symptoms appear to be slowly resolving, with less lability, hypomania sx. Medication Compliance: Yes Side effects from medications: No Attending Groups: No Review of Systems Acute medical concerns: No Medical Review of Systems: unchanged Review of Systems Review of Systems Yes all other systems are reviewed and are negative (denies) Mental Status Exam Mental Status Exam Patient Appearance: Fatigued Patient Orientation: Person, Place and Situation Level of Consciousness: Alert Patient Behavior: Talkative Mood Description: Withdrawn Affect Description: Flat Patient Cognition Impaired: No Ability to Follow Directions: Good Speech Pattern: Spontaneous Speech Memory Description: Remote Impaired and Episodic Impaired Hallucinations: Auditory Delusions: Paranoid Ideation Perceptual Disturbances: Derealization Thought Process: Distracted Thought Content: positive for Circumstantial Judgement: Fair Diagnostics Vital Signs (24Hr): Vital Signs - 24 hr 07/16/23 19:55 07/17/23 07:45 Temperature 97.1 F 98.6 F Pulse Rate 72 68 Respiratory Rate 15 Blood Pressure 115/54 L 130/61 Pulse Oximetry 97 Oxygen Delivery Method Room Air BMI result Body Mass Index 38.2 Labs 07/06/23 07:59 Labs: Laboratory Results - last 48 hr 07/15/23 07/15/23 07/16/23 16:50 22:02 07:43 POC Glucose 360 H* 289 H [place] 1.15 07/16/23 07/16/23 07/16/23 07:50 12:18 17:01 POC Glucose 219 H 245 H 279 H [place] 07/16/23 07/17/23 19:57 08:37 POC Glucose 271 H 281 H [place] Medications Medications Current Medications Acetaminophen (Acetaminophen 325 Mg Tablet) 650 mg PO Q6H PRN PRN Reason: Headache/Pain Mild Scale (1-3) Last Admin: 07/07/23 17:29 Dose: 650 mg Al Hydroxide/Mg Hydroxide (Magnesium Hydrox/Alum Hydrox 30 Ml Oral.Susp) 30 ml PO Q6H PRN PRN Reason: Heartburn/Nausea Dextrose (Dextrose 50 % 25 Gm/50 Ml Syringe) 25 gm IVPUSH Q15M PRN; Protocol PRN Reason: per Hypoglycemia Standing Ord. Divalproex Sodium (Divalproex Sodium 500 Mg Tablet.Dr) 1,500 mg PO 1800 [facility] Last Admin: 07/16/23 17:57 Dose: 1,500 mg Escitalopram Oxalate (Escitalopram Oxalate 10 Mg Tablet) 10 mg PO DAILY [facility] Last Admin: 07/17/23 10:03 Dose: 10 mg Glucose (Glucose Gel 15 Gm Gel..Gram.) 15 gm PO Q15M PRN; Protocol PRN Reason: per Hypoglycemia Standing Ord. Hydroxyzine HCl (Hydroxyzine Hcl 25 Mg Tablet) 25 mg PO Q6H PRN PRN Reason: Anxiety Last Admin: 07/07/23 04:32 Dose: 25 mg Hydroxyzine HCl (Hydroxyzine Hcl 50 Mg Tablet) 50 mg PO BEDTIME PRN PRN Reason: insomnia Last Admin: 07/13/23 03:37 Dose: 50 mg Insulin Glargine (Insulin Glargine,Hum.Rec.Anlog 100 Unit/Ml 10 Ml Vial) 28 unit SUBCUT DAILY [facility] Last Admin: 07/17/23 12:19 Dose: Not Given Insulin Human Lispro (Insulin Lispro 100 Unit/Ml 3 Ml Vial) 0 unit SUBCUT QIDACHS [facility]; Protocol Last Admin: 07/17/23 12:19 Dose: Not Given Levothyroxine Sodium (Levothyroxine Sodium 125 Mcg Tablet) 125 mcg PO DAILY@0600 [facility] Last Admin: 07/17/23 06:32 Dose: 125 mcg Lidocaine (Lidocaine 4 % Patch Adh..Patch) 1 patch TRANSDERMA DAILY [facility]; Protocol Last Admin: 07/17/23 10:01 Dose: Not Given Lisinopril (Lisinopril 10 Mg Tablet) 10 mg PO DAILY [facility]; Protocol Last Admin: 07/17/23 10:03 Dose: 10 mg [place] Carbonate ([place] Carbonate 300 Mg Tablet) 450 mg PO BID [facility] Last Admin: 07/17/23 10:02 Dose: 450 mg Loratadine (Loratadine 10 Mg Tablet) 10 mg PO DAILY PRN PRN Reason: allergy sx Magnesium Hydroxide (Milk Of Magnesia 30 Ml Oral.Susp) 30 ml PO DAILY PRN PRN Reason: Constipation Magnesium Oxide (Magnesium Oxide 400 Mg Tablet) 400 mg PO DAILY [facility] Last Admin: 07/17/23 10:01 Dose: 400 mg Multi-Ingred Cream/Lotion/Oil/Oint (Artificial Tears Ophth Oint 3.5 Gm Tube) 2 appl EYE-BOTH TID PRN; Protocol PRN Reason: Dry Eyes Last Admin: 07/11/23 11:44 Dose: 2 appl Olanzapine (Olanzapine 10 Mg Tablet) 10 mg PO BEDTIME [facility] Last Admin: 07/16/23 20:08 Dose: 10 mg Propranolol HCl (Propranolol Hcl 40 Mg Tablet) 80 mg PO TID [facility]; Protocol Last Admin: 07/17/23 10:01 Dose: 80 mg Risperidone (Risperidone 1 Mg Tablet) 1 mg PO DAILY [facility] Last Admin: 07/17/23 10:01 Dose: 1 mg Trazodone HCl (Trazodone Hcl 100 Mg Tablet) 100 mg PO BEDTIME MRX1 PRN PRN Reason: Insomnia Last Admin: 07/15/23 22:14 Dose: 100 mg Allergies Allergies Allergy/AdvReac Type Severity Reaction Status Date / Time haloperidol [From Haldol] AdvReac Unknown Verified 10/28/20 06:32 Assessment & Plan Assessment & Plan (1) Schizoaffective disorder, bipolar type: Status: Acute Code(s): F25.0 - Schizoaffective disorder, bipolar type Plan 63 yo female, hx of schizoaffective disorder, bipolar type with some sx of psychosis and arnoldo. Will check levels. TSH 6.43, Mg 1.5 and Na 133. Plan: Collateral contact EKG, Valproate, [place] levels Magnesium Oxide 400 mg daily Increase Olanzapine to 20 mg HS 07/07/23: Increase Valproate to 1500 mg daily Increase [place] to 450 mg bid TSH, BMP on 07/10. 07/08/23 continue tx plan 07/09/23 continue treatment plan 07/11/23 Increase Olanzapine to 25 mg HS. 07/13/23 continue tx 07/14/23 Continue tx 07/15: no changes. [place] level ordered for tomorrow as declined today. 07/16: lithium level 1.15, no changes made 07/17/23: Continue tx. Patient educated on: therapeutic strategies Informed Consent: further education needed Reason for continued inpatient stay Substantial Risk for: inability to function and rapid decompensation Time Spent With Patient Time: Total time managing care of this patient today ____ minutes.
[2023-07-17 17:17] LABS: Glucose, Whole Blood 221 mg/dL (60-115)
[2023-07-17] MEDS: Insulin Lispro 100 UNIT/ML 3 ML VIAL SUBCUT ×2 (17:30→21:46)
[2023-07-17] MEDS: Divalproex Sodium 500 MG TABLET.DR 1500 MG PO (17:31)
[2023-07-17 18:00] VITALS: BP 114/58; PULSE 73; RESP 18; TEMP 36.4; O2SAT 96
[2023-07-17 21:17] LABS: Glucose, Whole Blood 303 mg/dL (60-115)
[2023-07-17] MEDS: traZODone HCL 100 MG TABLET PO (21:41)
[2023-07-17] MEDS: OLANZapine 10 MG TABLET PO (21:42)
[2023-07-18 06:00] VITALS: BP 131/60; PULSE 65; RESP 16; TEMP 36.1; O2SAT 94
[2023-07-18] MEDS: Levothyroxine Sodium 125 MCG TABLET PO (06:17)
[2023-07-18 08:24] LABS: Glucose, Whole Blood 169 mg/dL (60-115)
[2023-07-18] MEDS: Escitalopram Oxalate 10 MG TABLET PO (08:28)
[2023-07-18] MEDS: lisinopriL 10 MG TABLET PO (08:28)
[2023-07-18] MEDS: risperiDONE 1 MG TABLET PO ×2 (08:28→21:07)
[2023-07-18] MEDS: Magnesium Oxide 400 MG TABLET PO (08:29)
[2023-07-18] MEDS: Propranolol HCL 40 MG TABLET 80 MG PO ×3 (08:29→21:07)
[2023-07-18] MEDS: Lithium Carbonate 300 MG TABLET 450 MG PO ×2 (08:29→21:06)
[2023-07-18] MEDS: Insulin Glargine,Hum.rec.anlog 100 UNIT/ML 10 ML VIAL 28 UNIT SUBCUT (08:36)
[2023-07-18] MEDS: Insulin Lispro 100 UNIT/ML 3 ML VIAL SUBCUT ×4 (08:36→21:05)
[2023-07-18 12:43] LABS: Glucose, Whole Blood 310 mg/dL (60-115)
--- NOTE | 2023-07-18 14:25 | HO.PSYCHPN ---
Subjective Subjective Date of Service: 07/18/23 Reason For Visit: Psychosis Subjective Notes: Conditional Voluntary Healthcare Proxy: No Guardianship: No Medical Problems Affecting Mental Status: No Interim History: Pt seen, discussed with team. Pt had a brief discussion with tw in [place] today. Reports she is well, making needs known, alert, more interactive and attentive, however, she continues with flat affect, anergy, responding to internal stimuli and presenting with increase sx of psychosis. Medication Compliance: Yes Side effects from medications: No Attending Groups: No Review of Systems Acute medical concerns: No Medical Review of Systems: unchanged Review of Systems Review of Systems Yes Unobtainable due to mental status Mental Status Exam Mental Status Exam Patient Appearance: Appropriate Patient Orientation: Person, Place and Situation Level of Consciousness: Alert Patient Behavior: Talkative Mood Description: Withdrawn Affect Description: Flat Patient Cognition Impaired: No Ability to Follow Directions: Good Speech Pattern: Spontaneous Speech Memory Description: Remote Impaired and Episodic Impaired Hallucinations: Auditory Delusions: Paranoid Ideation Perceptual Disturbances: Derealization Thought Process: Distracted Thought Content: positive for Circumstantial Judgement: Fair Diagnostics Vital Signs (24Hr): Vital Signs - 24 hr 07/17/23 18:00 07/18/23 06:00 Temperature 97.6 F 96.9 F Pulse Rate 73 65 Respiratory Rate 18 16 Blood Pressure 114/58 L 131/60 Pulse Oximetry 96 94 Oxygen Delivery Method Room Air Room Air BMI result Body Mass Index 38.2 Labs 07/06/23 07:59 Labs: Laboratory Results - last 48 hr 07/16/23 07/16/23 07/17/23 17:01 19:57 08:37 POC Glucose 279 H 271 H 281 H 07/17/23 07/17/23 07/18/23 17:13 21:12 08:16 POC Glucose 221 H 303 H 169 H 07/18/23 12:38 POC Glucose 310 H Medications Medications Current Medications Acetaminophen (Acetaminophen 325 Mg Tablet) 650 mg PO Q6H PRN PRN Reason: Headache/Pain Mild Scale (1-3) Last Admin: 07/07/23 17:29 Dose: 650 mg Al Hydroxide/Mg Hydroxide (Magnesium Hydrox/Alum Hydrox 30 Ml Oral.Susp) 30 ml PO Q6H PRN PRN Reason: Heartburn/Nausea Dextrose (Dextrose 50 % 25 Gm/50 Ml Syringe) 25 gm IVPUSH Q15M PRN; Protocol PRN Reason: per Hypoglycemia Standing Ord. Divalproex Sodium (Divalproex Sodium 500 Mg Tablet.Dr) 1,500 mg PO 1800 [facility] Last Admin: 07/17/23 17:31 Dose: 1,500 mg Escitalopram Oxalate (Escitalopram Oxalate 10 Mg Tablet) 10 mg PO DAILY [facility] Last Admin: 07/18/23 08:28 Dose: 10 mg Glucose (Glucose Gel 15 Gm Gel..Gram.) 15 gm PO Q15M PRN; Protocol PRN Reason: per Hypoglycemia Standing Ord. Hydroxyzine HCl (Hydroxyzine Hcl 25 Mg Tablet) 25 mg PO Q6H PRN PRN Reason: Anxiety Last Admin: 07/07/23 04:32 Dose: 25 mg Hydroxyzine HCl (Hydroxyzine Hcl 50 Mg Tablet) 50 mg PO BEDTIME PRN PRN Reason: insomnia Last Admin: 07/13/23 03:37 Dose: 50 mg Insulin Glargine (Insulin Glargine,Hum.Rec.Anlog 100 Unit/Ml 10 Ml Vial) 28 unit SUBCUT DAILY [facility] Last Admin: 07/18/23 08:36 Dose: 28 unit Insulin Human Lispro (Insulin Lispro 100 Unit/Ml 3 Ml Vial) 0 unit SUBCUT QIDACHS [facility]; Protocol Last Admin: 07/18/23 12:55 Dose: 8 unit Levothyroxine Sodium (Levothyroxine Sodium 125 Mcg Tablet) 125 mcg PO DAILY@0600 [facility] Last Admin: 07/18/23 06:17 Dose: 125 mcg Lidocaine (Lidocaine 4 % Patch Adh..Patch) 1 patch TRANSDERMA DAILY [facility]; Protocol Last Admin: 07/18/23 08:44 Dose: Not Given Lisinopril (Lisinopril 10 Mg Tablet) 10 mg PO DAILY [facility]; Protocol Last Admin: 07/18/23 08:28 Dose: 10 mg [place] Carbonate ([place] Carbonate 300 Mg Tablet) 450 mg PO BID [facility] Last Admin: 07/18/23 08:29 Dose: 450 mg Loratadine (Loratadine 10 Mg Tablet) 10 mg PO DAILY PRN PRN Reason: allergy sx Magnesium Hydroxide (Milk Of Magnesia 30 Ml Oral.Susp) 30 ml PO DAILY PRN PRN Reason: Constipation Magnesium Oxide (Magnesium Oxide 400 Mg Tablet) 400 mg PO DAILY [facility] Last Admin: 07/18/23 08:29 Dose: 400 mg Multi-Ingred Cream/Lotion/Oil/Oint (Artificial Tears Ophth Oint 3.5 Gm Tube) 2 appl EYE-BOTH TID PRN; Protocol PRN Reason: Dry Eyes Last Admin: 07/11/23 11:44 Dose: 2 appl Olanzapine (Olanzapine 10 Mg Tablet) 10 mg PO BEDTIME [facility] Last Admin: 07/17/23 21:42 Dose: 10 mg Propranolol HCl (Propranolol Hcl 40 Mg Tablet) 80 mg PO TID [facility]; Protocol Last Admin: 07/18/23 08:29 Dose: 80 mg Risperidone (Risperidone 1 Mg Tablet) 1 mg PO DAILY [facility] Last Admin: 07/18/23 08:28 Dose: 1 mg Trazodone HCl (Trazodone Hcl 100 Mg Tablet) 100 mg PO BEDTIME MRX1 PRN PRN Reason: Insomnia Last Admin: 07/17/23 21:41 Dose: 100 mg Allergies Allergies Allergy/AdvReac Type Severity Reaction Status Date / Time haloperidol [From Haldol] AdvReac Unknown Verified 10/28/20 06:32 Assessment & Plan Assessment & Plan (1) Schizoaffective disorder, bipolar type: Status: Acute Code(s): F25.0 - Schizoaffective disorder, bipolar type Plan 63 yo female, hx of schizoaffective disorder, bipolar type with some sx of psychosis and arnoldo. Will check levels. TSH 6.43, Mg 1.5 and Na 133. Plan: Collateral contact EKG, Valproate, [place] levels Magnesium Oxide 400 mg daily Increase Olanzapine to 20 mg HS 07/07/23: Increase Valproate to 1500 mg daily Increase [place] to 450 mg bid TSH, BMP on 07/10. 07/08/23 continue tx plan 07/09/23 continue treatment plan 07/11/23 Increase Olanzapine to 25 mg HS. 07/13/23 continue tx 07/14/23 Continue tx 07/15: no changes. [place] level ordered for tomorrow as declined today. 07/16: lithium level 1.15, no changes made 07/18/23: Increase Risperdal to 1 mg bid Informed Consent: does not understand Reason for continued inpatient stay Substantial Risk for: rapid decompensation Time Spent With Patient Time: Total time managing care of this patient today ____ minutes.
[2023-07-18 14:58] VITALS: BP 104/52; PULSE 68
[2023-07-18 17:46] LABS: Glucose, Whole Blood 252 mg/dL (60-115)
[2023-07-18 18:00] VITALS: BP 133/61; PULSE 69; RESP 18; TEMP 36.7; O2SAT 97
[2023-07-18] MEDS: Divalproex Sodium 500 MG TABLET.DR 1500 MG PO (18:15)
[2023-07-18 20:53] LABS: Glucose, Whole Blood 222 mg/dL (60-115)
[2023-07-18] MEDS: OLANZapine 10 MG TABLET PO (21:06)
[2023-07-19] MEDS: Levothyroxine Sodium 125 MCG TABLET PO (06:28)
[2023-07-19 08:19] LABS: Glucose, Whole Blood 177 mg/dL (60-115)
--- NOTE | 2023-07-19 08:40 | HO.PSYCHPN ---
Subjective Subjective Date of Service: 07/19/23 Reason For Visit: Psychosis Subjective Notes: Conditional Voluntary Healthcare Proxy: No Guardianship: No Medical Problems Affecting Mental Status: No Interim History: Pt seen with her nurse who interprets. She reports no symptoms of concern, except to report at times she feels overmedicated. As a result Risperdal was decreased. Team reports she did not recognize her primary RN today Pt reports she is sleeping, eating adequately. She denies SI, HI, AH, VH, fears or current worries. Medication Compliance: Yes Side effects from medications: Yes (reports feeling overmedicated today; Risperdal decreased) Attending Groups: No Review of Systems Acute medical concerns: No Medical Review of Systems: unchanged Review of Systems Review of Systems Yes all other systems are reviewed and are negative (denies) Mental Status Exam Mental Status Exam Patient Appearance: Appropriate Patient Orientation: Person, Place and Situation Level of Consciousness: Alert Patient Behavior: Talkative Mood Description: Withdrawn Affect Description: Flat Patient Cognition Impaired: No Ability to Follow Directions: Good Speech Pattern: Spontaneous Speech Memory Description: Remote Impaired and Episodic Impaired Hallucinations: None Delusions: Not Present Thought Process: Intact and Distracted Thought Content: positive for [place] and positive for Circumstantial Judgement: Fair Diagnostics Vital Signs (24Hr): Vital Signs - 24 hr 07/18/23 14:58 07/18/23 18:00 Temperature 98.0 F Pulse Rate 68 69 Respiratory Rate 18 Blood Pressure 104/52 L 133/61 Pulse Oximetry 97 Oxygen Delivery Method Room Air BMI result Body Mass Index 38.2 Labs 07/06/23 07:59 Labs: Laboratory Results - last 48 hr 07/17/23 07/17/23 07/17/23 08:37 17:13 21:12 POC Glucose 281 H 221 H 303 H 07/18/23 07/18/23 07/18/23 08:16 12:38 17:41 POC Glucose 169 H 310 H 252 H 07/18/23 07/19/23 20:49 08:01 POC Glucose 222 H 177 H Medications Medications Current Medications Acetaminophen (Acetaminophen 325 Mg Tablet) 650 mg PO Q6H PRN PRN Reason: Headache/Pain Mild Scale (1-3) Last Admin: 07/07/23 17:29 Dose: 650 mg Al Hydroxide/Mg Hydroxide (Magnesium Hydrox/Alum Hydrox 30 Ml Oral.Susp) 30 ml PO Q6H PRN PRN Reason: Heartburn/Nausea Dextrose (Dextrose 50 % 25 Gm/50 Ml Syringe) 25 gm IVPUSH Q15M PRN; Protocol PRN Reason: per Hypoglycemia Standing Ord. Divalproex Sodium (Divalproex Sodium 500 Mg Tablet.Dr) 1,500 mg PO 1800 [facility] Last Admin: 07/18/23 18:15 Dose: 1,500 mg Escitalopram Oxalate (Escitalopram Oxalate 10 Mg Tablet) 10 mg PO DAILY [facility] Last Admin: 07/18/23 08:28 Dose: 10 mg Glucose (Glucose Gel 15 Gm Gel..Gram.) 15 gm PO Q15M PRN; Protocol PRN Reason: per Hypoglycemia Standing Ord. Hydroxyzine HCl (Hydroxyzine Hcl 25 Mg Tablet) 25 mg PO Q6H PRN PRN Reason: Anxiety Last Admin: 07/07/23 04:32 Dose: 25 mg Hydroxyzine HCl (Hydroxyzine Hcl 50 Mg Tablet) 50 mg PO BEDTIME PRN PRN Reason: insomnia Last Admin: 07/13/23 03:37 Dose: 50 mg Insulin Glargine (Insulin Glargine,Hum.Rec.Anlog 100 Unit/Ml 10 Ml Vial) 28 unit SUBCUT DAILY [facility] Last Admin: 07/18/23 08:36 Dose: 28 unit Insulin Human Lispro (Insulin Lispro 100 Unit/Ml 3 Ml Vial) 0 unit SUBCUT QIDACHS [facility]; Protocol Last Admin: 07/18/23 21:05 Dose: 4 unit Levothyroxine Sodium (Levothyroxine Sodium 125 Mcg Tablet) 125 mcg PO DAILY@0600 [facility] Last Admin: 07/19/23 06:28 Dose: 125 mcg Lidocaine (Lidocaine 4 % Patch Adh..Patch) 1 patch TRANSDERMA DAILY [facility]; Protocol Last Admin: 07/18/23 08:44 Dose: Not Given Lisinopril (Lisinopril 10 Mg Tablet) 10 mg PO DAILY [facility]; Protocol Last Admin: 07/18/23 08:28 Dose: 10 mg [place] Carbonate ([place] Carbonate 300 Mg Tablet) 450 mg PO BID [facility] Last Admin: 07/18/23 21:06 Dose: 450 mg Loratadine (Loratadine 10 Mg Tablet) 10 mg PO DAILY PRN PRN Reason: allergy sx Magnesium Hydroxide (Milk Of Magnesia 30 Ml Oral.Susp) 30 ml PO DAILY PRN PRN Reason: Constipation Magnesium Oxide (Magnesium Oxide 400 Mg Tablet) 400 mg PO DAILY [facility] Last Admin: 07/18/23 08:29 Dose: 400 mg Multi-Ingred Cream/Lotion/Oil/Oint (Artificial Tears Ophth Oint 3.5 Gm Tube) 2 appl EYE-BOTH TID PRN; Protocol PRN Reason: Dry Eyes Last Admin: 07/11/23 11:44 Dose: 2 appl Olanzapine (Olanzapine 10 Mg Tablet) 10 mg PO BEDTIME [facility] Last Admin: 07/18/23 21:06 Dose: 10 mg Propranolol HCl (Propranolol Hcl 40 Mg Tablet) 80 mg PO TID [facility]; Protocol Last Admin: 07/18/23 21:07 Dose: 80 mg Risperidone (Risperidone 1 Mg Tablet) 1 mg PO BID [facility] Last Admin: 07/18/23 21:07 Dose: 1 mg Trazodone HCl (Trazodone Hcl 100 Mg Tablet) 100 mg PO BEDTIME MRX1 PRN PRN Reason: Insomnia Last Admin: 07/17/23 21:41 Dose: 100 mg Allergies Allergies Allergy/AdvReac Type Severity Reaction Status Date / Time haloperidol [From Haldol] AdvReac Unknown Verified 10/28/20 06:32 Assessment & Plan Assessment & Plan (1) Schizoaffective disorder, bipolar type: Status: Acute Code(s): F25.0 - Schizoaffective disorder, bipolar type Plan 63 yo female, hx of schizoaffective disorder, bipolar type with some sx of psychosis and arnoldo. Will check levels. TSH 6.43, Mg 1.5 and Na 133. Plan: Collateral contact EKG, Valproate, [place] levels Magnesium Oxide 400 mg daily Increase Olanzapine to 20 mg HS 07/07/23: Increase Valproate to 1500 mg daily Increase [place] to 450 mg bid TSH, BMP on 07/10. 07/08/23 continue tx plan 07/09/23 continue treatment plan 07/11/23 Increase Olanzapine to 25 mg HS. 07/13/23 continue tx 07/14/23 Continue tx 07/15: no changes. [place] level ordered for tomorrow as declined today. 07/16: lithium level 1.15, no changes made 07/18/23: Increase Risperdal to 1 mg bid 07/19/23 Decrease Risperdal to 1 mg daily Informed Consent: understands Reason for continued inpatient stay Substantial Risk for: rapid decompensation Time Spent With Patient Time: Total time managing care of this patient today ____ minutes.
[2023-07-19 09:00] VITALS: BP 130/61; PULSE 65; RESP 16; TEMP 36.3; O2SAT 97
[2023-07-19] MEDS: Propranolol HCL 40 MG TABLET 80 MG PO ×2 (09:06→20:37)
[2023-07-19] MEDS: Lithium Carbonate 300 MG TABLET 450 MG PO ×2 (09:06→20:37)
[2023-07-19] MEDS: Magnesium Oxide 400 MG TABLET PO (09:06)
[2023-07-19] MEDS: lisinopriL 10 MG TABLET PO (09:06)
[2023-07-19] MEDS: Escitalopram Oxalate 10 MG TABLET PO (09:06)
[2023-07-19] MEDS: risperiDONE 1 MG TABLET PO (09:06)
[2023-07-19] MEDS: Insulin Glargine,Hum.rec.anlog 100 UNIT/ML 10 ML VIAL 28 UNIT SUBCUT (09:12)
[2023-07-19] MEDS: Insulin Lispro 100 UNIT/ML 3 ML VIAL SUBCUT ×4 (09:12→20:37)
[2023-07-19 12:23] LABS: Glucose, Whole Blood 220 mg/dL (60-115)
[2023-07-19 14:12] VITALS: BP 95/45; PULSE 75
[2023-07-19 17:44] LABS: Glucose, Whole Blood 279 mg/dL (60-115)
[2023-07-19 18:00] VITALS: BP 136/60; PULSE 77; RESP 18; TEMP 36.4; O2SAT 97
[2023-07-19] MEDS: Divalproex Sodium 500 MG TABLET.DR 1500 MG PO (18:17)
[2023-07-19] MEDS: OLANZapine 10 MG TABLET PO (20:37)
[2023-07-19 20:52] LABS: Glucose, Whole Blood 296 mg/dL (60-115)
[2023-07-20] MEDS: Levothyroxine Sodium 125 MCG TABLET PO (05:49)
[2023-07-20 08:15] LABS: Glucose, Whole Blood 233 mg/dL (60-115)
[2023-07-20] MEDS: Magnesium Oxide 400 MG TABLET PO (09:40)
[2023-07-20] MEDS: risperiDONE 1 MG TABLET PO (09:40)
[2023-07-20] MEDS: lisinopriL 10 MG TABLET PO (09:40)
[2023-07-20] MEDS: Escitalopram Oxalate 10 MG TABLET PO (09:40)
[2023-07-20] MEDS: Propranolol HCL 40 MG TABLET 80 MG PO ×3 (09:41→21:17)
[2023-07-20] MEDS: Lithium Carbonate 300 MG TABLET 450 MG PO ×2 (09:41→21:15)
[2023-07-20] MEDS: Lidocaine 4 % Patch ADH..PATCH 1 PATCH TRANSDERMA (09:41)
[2023-07-20] MEDS: Insulin Lispro 100 UNIT/ML 3 ML VIAL SUBCUT ×3 (09:46→21:17)
[2023-07-20] MEDS: Insulin Glargine,Hum.rec.anlog 100 UNIT/ML 10 ML VIAL 28 UNIT SUBCUT (09:48)
[2023-07-20 09:49] VITALS: BP 124/70; PULSE 76; RESP 16; TEMP 36.7; O2SAT 95
[2023-07-20 10:04] VITALS: BMI 38.2
[2023-07-20 12:14] LABS: Glucose, Whole Blood 253 mg/dL (60-115)
[2023-07-20 14:13] VITALS: BP 128/62; PULSE 70
--- NOTE | 2023-07-20 16:34 | P.PNPSI_ITS ---
Subjective Subjective Date of Service: 07/20/23 Reason For Visit: Psychosis Subjective Notes: Conditional Voluntary Healthcare Proxy: No Guardianship: No Medical Problems Affecting Mental Status: No Interim History: Pt seen, discussed in team meeting. Team report pt appears to be stabilizing at her baseline. Alert, interactive, not appearing overmedicated and denies feeling overmedicated. Discharge planning with team. Medication Compliance: Yes Side effects from medications: No Attending Groups: No Review of Systems Acute medical concerns: No Medical Review of Systems: unchanged Review of Systems Review of Systems Yes all other systems are reviewed and are negative (denies) Mental Status Exam Mental Status Exam Patient Appearance: Appropriate Patient Orientation: Person, Place and Situation Level of Consciousness: Alert Patient Behavior: Talkative Mood Description: Withdrawn Affect Description: Flat Patient Cognition Impaired: No Ability to Follow Directions: Good Speech Pattern: Spontaneous Speech Memory Description: Remote Impaired and Episodic Impaired Hallucinations: None Delusions: Not Present Thought Process: Intact and Distracted Thought Content: positive for [place] and positive for Circumstantial Judgement: Fair Diagnostics Vital Signs (24Hr): Vital Signs - 24 hr 07/19/23 18:00 07/20/23 09:49 07/20/23 14:13 Temperature 97.5 F 98.0 F Pulse Rate 77 76 70 Respiratory Rate 18 16 Blood Pressure 136/60 124/70 128/62 Pulse Oximetry 97 95 Oxygen Delivery Method Room Air Room Air BMI result Body Mass Index 38.2 Labs 07/06/23 07:59 Labs: Laboratory Results - last 48 hr 07/18/23 07/18/23 07/19/23 17:41 20:49 08:01 POC Glucose 252 H 222 H 177 H 07/19/23 07/19/23 07/19/23 12:18 17:39 20:34 POC Glucose 220 H 279 H 296 H 07/20/23 07/20/23 08:05 12:02 POC Glucose 233 H 253 H Medications Medications Current Medications Acetaminophen (Acetaminophen 325 Mg Tablet) 650 mg PO Q6H PRN PRN Reason: Headache/Pain Mild Scale (1-3) Last Admin: 07/07/23 17:29 Dose: 650 mg Al Hydroxide/Mg Hydroxide (Magnesium Hydrox/Alum Hydrox 30 Ml Oral.Susp) 30 ml PO Q6H PRN PRN Reason: Heartburn/Nausea Dextrose (Dextrose 50 % 25 Gm/50 Ml Syringe) 25 gm IVPUSH Q15M PRN; Protocol PRN Reason: per Hypoglycemia Standing Ord. Divalproex Sodium (Divalproex Sodium 500 Mg Tablet.Dr) 1,500 mg PO 1800 [facility] Last Admin: 07/19/23 18:17 Dose: 1,500 mg Escitalopram Oxalate (Escitalopram Oxalate 10 Mg Tablet) 10 mg PO DAILY [facility] Last Admin: 07/20/23 09:40 Dose: 10 mg Glucose (Glucose Gel 15 Gm Gel..Gram.) 15 gm PO Q15M PRN; Protocol PRN Reason: per Hypoglycemia Standing Ord. Hydroxyzine HCl (Hydroxyzine Hcl 25 Mg Tablet) 25 mg PO Q6H PRN PRN Reason: Anxiety Last Admin: 07/07/23 04:32 Dose: 25 mg Hydroxyzine HCl (Hydroxyzine Hcl 50 Mg Tablet) 50 mg PO BEDTIME PRN PRN Reason: insomnia Last Admin: 07/13/23 03:37 Dose: 50 mg Insulin Glargine (Insulin Glargine,Hum.Rec.Anlog 100 Unit/Ml 10 Ml Vial) 28 unit SUBCUT DAILY [facility] Last Admin: 07/20/23 09:48 Dose: 28 unit Insulin Human Lispro (Insulin Lispro 100 Unit/Ml 3 Ml Vial) 0 unit SUBCUT QIDACHS [facility]; Protocol Last Admin: 07/20/23 12:43 Dose: 6 unit Levothyroxine Sodium (Levothyroxine Sodium 125 Mcg Tablet) 125 mcg PO DAILY@0600 [facility] Last Admin: 07/20/23 05:49 Dose: 125 mcg Lidocaine (Lidocaine 4 % Patch Adh..Patch) 1 patch TRANSDERMA DAILY [facility]; Protocol Last Admin: 07/20/23 09:41 Dose: 1 patch Lisinopril (Lisinopril 10 Mg Tablet) 10 mg PO DAILY [facility]; Protocol Last Admin: 07/20/23 09:40 Dose: 10 mg [place] Carbonate ([place] Carbonate 300 Mg Tablet) 450 mg PO BID [facility] Last Admin: 07/20/23 09:41 Dose: 450 mg Loratadine (Loratadine 10 Mg Tablet) 10 mg PO DAILY PRN PRN Reason: allergy sx Magnesium Hydroxide (Milk Of Magnesia 30 Ml Oral.Susp) 30 ml PO DAILY PRN PRN Reason: Constipation Magnesium Oxide (Magnesium Oxide 400 Mg Tablet) 400 mg PO DAILY [facility] Last Admin: 07/20/23 09:40 Dose: 400 mg Multi-Ingred Cream/Lotion/Oil/Oint (Artificial Tears Ophth Oint 3.5 Gm Tube) 2 appl EYE-BOTH TID PRN; Protocol PRN Reason: Dry Eyes Last Admin: 07/11/23 11:44 Dose: 2 appl Olanzapine (Olanzapine 10 Mg Tablet) 10 mg PO BEDTIME [facility] Last Admin: 07/19/23 20:37 Dose: 10 mg Propranolol HCl (Propranolol Hcl 40 Mg Tablet) 80 mg PO TID [facility]; Protocol Last Admin: 07/20/23 14:12 Dose: 80 mg Risperidone (Risperidone 1 Mg Tablet) 1 mg PO DAILY [facility] Last Admin: 07/20/23 09:40 Dose: 1 mg Trazodone HCl (Trazodone Hcl 100 Mg Tablet) 100 mg PO BEDTIME MRX1 PRN PRN Reason: Insomnia Last Admin: 07/17/23 21:41 Dose: 100 mg Allergies Allergies Allergy/AdvReac Type Severity Reaction Status Date / Time haloperidol [From Haldol] AdvReac Unknown Verified 10/28/20 06:32 Assessment & Plan Assessment & Plan (1) Schizoaffective disorder, bipolar type: Status: Acute Code(s): F25.0 - Schizoaffective disorder, bipolar type Plan 63 yo female, hx of schizoaffective disorder, bipolar type with some sx of psychosis and arnoldo. Will check levels. TSH 6.43, Mg 1.5 and Na 133. Plan: Collateral contact EKG, Valproate, [place] levels Magnesium Oxide 400 mg daily Increase Olanzapine to 20 mg HS 07/07/23: Increase Valproate to 1500 mg daily Increase [place] to 450 mg bid TSH, BMP on 07/10. 07/08/23 continue tx plan 07/09/23 continue treatment plan 07/11/23 Increase Olanzapine to 25 mg HS. 07/13/23 continue tx 07/14/23 Continue tx 07/15: no changes. [place] level ordered for tomorrow as declined today. 07/16: lithium level 1.15, no changes made 07/18/23: Increase Risperdal to 1 mg bid 07/19/23 Decrease Risperdal to 1 mg daily 07/20/23 Continue tx Reason for continued inpatient stay Substantial Risk for: rapid decompensation Time Spent With Patient Time: Total time managing care of this patient today ____ minutes.
[2023-07-20] MEDS: Divalproex Sodium 500 MG TABLET.DR 1500 MG PO (18:20)
[2023-07-20 21:10] VITALS: BP 112/55; PULSE 67; TEMP 36.1
[2023-07-20 21:13] LABS: Glucose, Whole Blood 249 mg/dL (60-115)
[2023-07-20] MEDS: OLANZapine 10 MG TABLET PO (21:16)
[2023-07-21] MEDS: Levothyroxine Sodium 125 MCG TABLET PO (06:26)
[2023-07-21 07:54] LABS: Glucose, Whole Blood 126 mg/dL (60-115)
[2023-07-21] MEDS: Lithium Carbonate 300 MG TABLET 450 MG PO ×2 (08:49→21:30)
[2023-07-21] MEDS: Escitalopram Oxalate 10 MG TABLET PO (08:49)
[2023-07-21] MEDS: lisinopriL 10 MG TABLET PO (08:49)
[2023-07-21] MEDS: Propranolol HCL 40 MG TABLET 80 MG PO ×3 (08:49→21:36)
[2023-07-21] MEDS: risperiDONE 1 MG TABLET PO (08:49)
[2023-07-21] MEDS: Magnesium Oxide 400 MG TABLET PO (08:51)
[2023-07-21] MEDS: Insulin Glargine,Hum.rec.anlog 100 UNIT/ML 10 ML VIAL 28 UNIT SUBCUT (08:53)
[2023-07-21 08:56] VITALS: BP 109/62; PULSE 63; RESP 16; TEMP 35.9; O2SAT 99
--- NOTE | 2023-07-21 10:00 | HO.PSYCHPN ---
Subjective Subjective Date of Service: 07/21/23 Reason For Visit: Psychosis Subjective Notes: Conditional Voluntary Healthcare Proxy: No Guardianship: No Medical Problems Affecting Mental Status: No Interim History: Pt seen with her primary nurse who interpreted. She denies symptoms of concern. Denies SI/HI/Perceptual Alterations. No paranoia, delusional sx noted. She denies feeling overmedicated, denies medical issues. Discharge planned for 07/24/23. Medication Compliance: Yes Side effects from medications: No Attending Groups: No Review of Systems Acute medical concerns: No Medical Review of Systems: unchanged Review of Systems Review of Systems Yes all other systems are reviewed and are negative Mental Status Exam Mental Status Exam Patient Appearance: Appropriate Patient Orientation: Person, Place and Situation Level of Consciousness: Alert Patient Behavior: Talkative Mood Description: Withdrawn Affect Description: Flat Patient Cognition Impaired: No Ability to Follow Directions: Good Speech Pattern: Spontaneous Speech Memory Description: Remote Impaired and Episodic Impaired Hallucinations: None Delusions: Not Present Thought Process: Intact and Distracted Thought Content: positive for [place] and positive for Circumstantial Judgement: Fair Diagnostics Vital Signs (24Hr): Vital Signs - 24 hr 07/20/23 14:13 07/20/23 21:10 07/21/23 08:56 Temperature 97.0 F 96.6 F L Pulse Rate 70 67 63 Respiratory Rate 16 Blood Pressure 128/62 112/55 L 109/62 Pulse Oximetry 99 Oxygen Delivery Method Room Air BMI result Body Mass Index 38.2 Labs 07/06/23 07:59 Labs: Laboratory Results - last 48 hr 07/19/23 07/19/23 07/19/23 12:18 17:39 20:34 POC Glucose 220 H 279 H 296 H 07/20/23 07/20/23 07/20/23 08:05 12:02 20:42 POC Glucose 233 H 253 H 249 H 07/21/23 07:39 POC Glucose 126 H Medications Medications Current Medications Acetaminophen (Acetaminophen 325 Mg Tablet) 650 mg PO Q6H PRN PRN Reason: Headache/Pain Mild Scale (1-3) Last Admin: 07/07/23 17:29 Dose: 650 mg Al Hydroxide/Mg Hydroxide (Magnesium Hydrox/Alum Hydrox 30 Ml Oral.Susp) 30 ml PO Q6H PRN PRN Reason: Heartburn/Nausea Dextrose (Dextrose 50 % 25 Gm/50 Ml Syringe) 25 gm IVPUSH Q15M PRN; Protocol PRN Reason: per Hypoglycemia Standing Ord. Divalproex Sodium (Divalproex Sodium 500 Mg Tablet.Dr) 1,500 mg PO 1800 [facility] Last Admin: 07/20/23 18:20 Dose: 1,500 mg Escitalopram Oxalate (Escitalopram Oxalate 10 Mg Tablet) 10 mg PO DAILY [facility] Last Admin: 07/21/23 08:49 Dose: 10 mg Glucose (Glucose Gel 15 Gm Gel..Gram.) 15 gm PO Q15M PRN; Protocol PRN Reason: per Hypoglycemia Standing Ord. Hydroxyzine HCl (Hydroxyzine Hcl 25 Mg Tablet) 25 mg PO Q6H PRN PRN Reason: Anxiety Last Admin: 07/07/23 04:32 Dose: 25 mg Hydroxyzine HCl (Hydroxyzine Hcl 50 Mg Tablet) 50 mg PO BEDTIME PRN PRN Reason: insomnia Last Admin: 07/13/23 03:37 Dose: 50 mg Insulin Glargine (Insulin Glargine,Hum.Rec.Anlog 100 Unit/Ml 10 Ml Vial) 28 unit SUBCUT DAILY [facility] Last Admin: 07/21/23 08:53 Dose: 28 unit Insulin Human Lispro (Insulin Lispro 100 Unit/Ml 3 Ml Vial) 0 unit SUBCUT QIDACHS [facility]; Protocol Last Admin: 07/21/23 08:54 Dose: Not Given Levothyroxine Sodium (Levothyroxine Sodium 125 Mcg Tablet) 125 mcg PO DAILY@0600 [facility] Last Admin: 07/21/23 06:26 Dose: 125 mcg Lidocaine (Lidocaine 4 % Patch Adh..Patch) 1 patch TRANSDERMA DAILY [facility]; Protocol Last Admin: 07/21/23 08:55 Dose: Not Given Lisinopril (Lisinopril 10 Mg Tablet) 10 mg PO DAILY [facility]; Protocol Last Admin: 07/21/23 08:49 Dose: 10 mg [place] Carbonate ([place] Carbonate 300 Mg Tablet) 450 mg PO BID [facility] Last Admin: 07/21/23 08:49 Dose: 450 mg Loratadine (Loratadine 10 Mg Tablet) 10 mg PO DAILY PRN PRN Reason: allergy sx Magnesium Hydroxide (Milk Of Magnesia 30 Ml Oral.Susp) 30 ml PO DAILY PRN PRN Reason: Constipation Magnesium Oxide (Magnesium Oxide 400 Mg Tablet) 400 mg PO DAILY [facility] Last Admin: 07/21/23 08:51 Dose: 400 mg Multi-Ingred Cream/Lotion/Oil/Oint (Artificial Tears Ophth Oint 3.5 Gm Tube) 2 appl EYE-BOTH TID PRN; Protocol PRN Reason: Dry Eyes Last Admin: 07/11/23 11:44 Dose: 2 appl Olanzapine (Olanzapine 10 Mg Tablet) 10 mg PO BEDTIME [facility] Last Admin: 07/20/23 21:16 Dose: 10 mg Propranolol HCl (Propranolol Hcl 40 Mg Tablet) 80 mg PO TID [facility]; Protocol Last Admin: 07/21/23 08:49 Dose: 80 mg Risperidone (Risperidone 1 Mg Tablet) 1 mg PO DAILY [facility] Last Admin: 07/21/23 08:49 Dose: 1 mg Trazodone HCl (Trazodone Hcl 100 Mg Tablet) 100 mg PO BEDTIME MRX1 PRN PRN Reason: Insomnia Last Admin: 07/17/23 21:41 Dose: 100 mg Allergies Allergies Allergy/AdvReac Type Severity Reaction Status Date / Time haloperidol [From Haldol] AdvReac Unknown Verified 10/28/20 06:32 Assessment & Plan Assessment & Plan (1) Schizoaffective disorder, bipolar type: Status: Acute Code(s): F25.0 - Schizoaffective disorder, bipolar type Plan 63 yo female, hx of schizoaffective disorder, bipolar type with some sx of psychosis and arnoldo. Will check levels. TSH 6.43, Mg 1.5 and Na 133. Plan: Collateral contact EKG, Valproate, [place] levels Magnesium Oxide 400 mg daily Increase Olanzapine to 20 mg HS 07/07/23: Increase Valproate to 1500 mg daily Increase [place] to 450 mg bid TSH, BMP on 07/10. 07/08/23 continue tx plan 07/09/23 continue treatment plan 07/11/23 Increase Olanzapine to 25 mg HS. 07/13/23 continue tx 07/14/23 Continue tx 07/15: no changes. [place] level ordered for tomorrow as declined today. 07/16: lithium level 1.15, no changes made 07/18/23: Increase Risperdal to 1 mg bid 07/19/23 Decrease Risperdal to 1 mg daily 07/20/23 Continue tx 07/21/23 Continue tx Informed Consent: understands and further education needed Reason for continued inpatient stay Substantial Risk for: rapid decompensation Time Spent With Patient Time: Total time managing care of this patient today ____ minutes.
[2023-07-21 12:34] LABS: Glucose, Whole Blood 233 mg/dL (60-115)
[2023-07-21] MEDS: Insulin Lispro 100 UNIT/ML 3 ML VIAL SUBCUT ×3 (12:36→21:36)
[2023-07-21 17:23] LABS: Glucose, Whole Blood 265 mg/dL (60-115)
[2023-07-21] MEDS: Divalproex Sodium 500 MG TABLET.DR 1500 MG PO (17:36)
[2023-07-21 21:14] LABS: Glucose, Whole Blood 247 mg/dL (60-115)
[2023-07-21 21:30] VITALS: BP 157/69; PULSE 64; TEMP 36.3
[2023-07-21] MEDS: OLANZapine 10 MG TABLET PO (21:30)
[2023-07-22] MEDS: Levothyroxine Sodium 125 MCG TABLET PO (06:07)
[2023-07-22 08:00] VITALS: BP 131/60; PULSE 66; RESP 16; TEMP 36.1; O2SAT 98
[2023-07-22 08:45] LABS: Glucose, Whole Blood 170 mg/dL (60-115)
[2023-07-22] MEDS: lisinopriL 10 MG TABLET PO (09:12)
[2023-07-22] MEDS: Escitalopram Oxalate 10 MG TABLET PO (09:12)
[2023-07-22] MEDS: Magnesium Oxide 400 MG TABLET PO (09:12)
[2023-07-22] MEDS: Lithium Carbonate 300 MG TABLET 450 MG PO ×2 (09:12→20:28)
[2023-07-22] MEDS: risperiDONE 1 MG TABLET PO (09:12)
[2023-07-22] MEDS: Propranolol HCL 40 MG TABLET 80 MG PO ×3 (09:12→20:28)
[2023-07-22] MEDS: Insulin Lispro 100 UNIT/ML 3 ML VIAL SUBCUT ×4 (09:13→20:27)
[2023-07-22] MEDS: Insulin Glargine,Hum.rec.anlog 100 UNIT/ML 10 ML VIAL 28 UNIT SUBCUT (09:14)
--- NOTE | 2023-07-22 10:32 | P.PNPSI_ITS ---
Subjective Subjective Date of Service: 07/22/23 Reason For Visit: Psychosis Subjective Notes: Conditional Voluntary Healthcare Proxy: No Guardianship: No Medical Problems Affecting Mental Status: No Interim History: Pt is isolative in her room. She denies sx of concern She is bright when talking with her and expresses gratitude. She reports she is prepared for discharge on 07/24/23 Medication Compliance: Yes Side effects from medications: No Attending Groups: No Review of Systems Acute medical concerns: No Medical Review of Systems: unchanged Review of Systems Review of Systems Yes all other systems are reviewed and are negative (denies) Mental Status Exam Mental Status Exam Patient Appearance: Appropriate Patient Orientation: Person, Place and Situation Level of Consciousness: Alert Patient Behavior: Talkative Mood Description: Withdrawn Affect Description: Flat Patient Cognition Impaired: No Ability to Follow Directions: Good Speech Pattern: Spontaneous Speech Memory Description: Remote Impaired and Episodic Impaired Hallucinations: None Delusions: Not Present Thought Process: Intact and Distracted Thought Content: positive for [place] and positive for Circumstantial Judgement: Fair Diagnostics Vital Signs (24Hr): Vital Signs - 24 hr 07/21/23 21:30 Temperature 97.3 F Pulse Rate 64 Blood Pressure 157/69 H BMI result Body Mass Index 38.2 Labs 07/06/23 07:59 Labs: Laboratory Results - last 48 hr 07/20/23 07/20/23 07/21/23 12:02 20:42 07:39 POC Glucose 253 H 249 H 126 H 07/21/23 07/21/23 07/21/23 12:12 17:10 21:10 POC Glucose 233 H 265 H 247 H 07/22/23 08:39 POC Glucose 170 H Medications Medications Current Medications Acetaminophen (Acetaminophen 325 Mg Tablet) 650 mg PO Q6H PRN PRN Reason: Headache/Pain Mild Scale (1-3) Last Admin: 07/07/23 17:29 Dose: 650 mg Al Hydroxide/Mg Hydroxide (Magnesium Hydrox/Alum Hydrox 30 Ml Oral.Susp) 30 ml PO Q6H PRN PRN Reason: Heartburn/Nausea Dextrose (Dextrose 50 % 25 Gm/50 Ml Syringe) 25 gm IVPUSH Q15M PRN; Protocol PRN Reason: per Hypoglycemia Standing Ord. Divalproex Sodium (Divalproex Sodium 500 Mg Tablet.) 1,500 mg PO 1800 [facility] Last Admin: 07/21/23 17:36 Dose: 1,500 mg Escitalopram Oxalate (Escitalopram Oxalate 10 Mg Tablet) 10 mg PO DAILY [facility] Last Admin: 07/22/23 09:12 Dose: 10 mg Glucose (Glucose Gel 15 Gm Gel..Gram.) 15 gm PO Q15M PRN; Protocol PRN Reason: per Hypoglycemia Standing Ord. Hydroxyzine HCl (Hydroxyzine Hcl 25 Mg Tablet) 25 mg PO Q6H PRN PRN Reason: Anxiety Last Admin: 07/07/23 04:32 Dose: 25 mg Hydroxyzine HCl (Hydroxyzine Hcl 50 Mg Tablet) 50 mg PO BEDTIME PRN PRN Reason: insomnia Last Admin: 07/13/23 03:37 Dose: 50 mg Insulin Glargine (Insulin Glargine,Hum.Rec.Anlog 100 Unit/Ml 10 Ml Vial) 28 unit SUBCUT DAILY [facility] Last Admin: 07/22/23 09:14 Dose: 28 unit Insulin Human Lispro (Insulin Lispro 100 Unit/Ml 3 Ml Vial) 0 unit SUBCUT QIDACHS [facility]; Protocol Last Admin: 07/22/23 09:13 Dose: 2 unit Levothyroxine Sodium (Levothyroxine Sodium 125 Mcg Tablet) 125 mcg PO DAILY@0600 [facility] Last Admin: 07/22/23 06:07 Dose: 125 mcg Lidocaine (Lidocaine 4 % Patch Adh..Patch) 1 patch TRANSDERMA DAILY [facility]; Protocol Last Admin: 07/22/23 09:15 Dose: Not Given Lisinopril (Lisinopril 10 Mg Tablet) 10 mg PO DAILY [facility]; Protocol Last Admin: 07/22/23 09:12 Dose: 10 mg [place] Carbonate ([place] Carbonate 300 Mg Tablet) 450 mg PO BID [facility] Last Admin: 07/22/23 09:12 Dose: 450 mg Loratadine (Loratadine 10 Mg Tablet) 10 mg PO DAILY PRN PRN Reason: allergy sx Magnesium Hydroxide (Milk Of Magnesia 30 Ml Oral.Susp) 30 ml PO DAILY PRN PRN Reason: Constipation Magnesium Oxide (Magnesium Oxide 400 Mg Tablet) 400 mg PO DAILY [facility] Last Admin: 07/22/23 09:12 Dose: 400 mg Multi-Ingred Cream/Lotion/Oil/Oint (Artificial Tears Ophth Oint 3.5 Gm Tube) 2 appl EYE-BOTH TID PRN; Protocol PRN Reason: Dry Eyes Last Admin: 07/11/23 11:44 Dose: 2 appl Olanzapine (Olanzapine 10 Mg Tablet) 10 mg PO BEDTIME [facility] Last Admin: 07/21/23 21:30 Dose: 10 mg Propranolol HCl (Propranolol Hcl 40 Mg Tablet) 80 mg PO TID [facility]; Protocol Last Admin: 07/22/23 09:12 Dose: 80 mg Risperidone (Risperidone 1 Mg Tablet) 1 mg PO DAILY [facility] Last Admin: 07/22/23 09:12 Dose: 1 mg Trazodone HCl (Trazodone Hcl 100 Mg Tablet) 100 mg PO BEDTIME MRX1 PRN PRN Reason: Insomnia Last Admin: 07/17/23 21:41 Dose: 100 mg Allergies Allergies Allergy/AdvReac Type Severity Reaction Status Date / Time haloperidol [From Haldol] AdvReac Unknown Verified 10/28/20 06:32 Assessment & Plan Assessment & Plan (1) Schizoaffective disorder, bipolar type: Status: Acute Code(s): F25.0 - Schizoaffective disorder, bipolar type Plan 63 yo female, hx of schizoaffective disorder, bipolar type with some sx of psychosis and arnoldo. Will check levels. TSH 6.43, Mg 1.5 and Na 133. Plan: Collateral contact EKG, Valproate, [place] levels Magnesium Oxide 400 mg daily Increase Olanzapine to 20 mg HS 07/07/23: Increase Valproate to 1500 mg daily Increase [place] to 450 mg bid TSH, BMP on 07/10. 07/08/23 continue tx plan 07/09/23 continue treatment plan 07/11/23 Increase Olanzapine to 25 mg HS. 07/13/23 continue tx 07/14/23 Continue tx 07/15: no changes. [place] level ordered for tomorrow as declined today. 07/16: lithium level 1.15, no changes made 07/18/23: Increase Risperdal to 1 mg bid 07/19/23 Decrease Risperdal to 1 mg daily 07/20/23 Continue tx 07/21/23 Continue tx 07/22/23 Continue tx Informed Consent: does not understand Reason for continued inpatient stay Substantial Risk for: inability to function and rapid decompensation Time Spent With Patient Time: Total time managing care of this patient today ____ minutes.
[2023-07-22 12:23] LABS: Glucose, Whole Blood 239 mg/dL (60-115)
[2023-07-22 14:52] VITALS: BP 149/80; PULSE 84
[2023-07-22 17:07] VITALS: BP 133/62; PULSE 71; TEMP 36.6; O2SAT 95
[2023-07-22 17:08] LABS: Glucose, Whole Blood 246 mg/dL (60-115)
[2023-07-22] MEDS: Divalproex Sodium 500 MG TABLET.DR 1500 MG PO (18:15)
[2023-07-22 20:04] LABS: Glucose, Whole Blood 186 mg/dL (60-115)
[2023-07-22] MEDS: OLANZapine 10 MG TABLET PO (20:28)
[2023-07-23] MEDS: Levothyroxine Sodium 125 MCG TABLET PO (05:36)
[2023-07-23 07:22] LABS: MANUAL DIFF FLAG NO
[2023-07-23 07:25] LABS: Basophils Percent Auto 0.4 % (0-2); Eosinophils Absolute Auto 0.2 X10*3/uL (0.0-0.4); Eosinophils Percent Auto 2.9 % (0-4); Hemoglobin 13.5 g/dl (12.0-16.0); Imm Gran Abs Auto 0.01 X10*3/uL (0.00-0.03); Imm Gran Pct Auto 0.2 % (0.0-0.4); Lymphocytes Absolute Auto 1.9 X10*3/uL (1.2-4.9); Lymphocytes Percent Auto 36.3 % (20-40); Mean Corpuscular HGB Conc 32.9 g/dl (31.0-35.0); Mean Corpuscular Hemoglobin 29.5 pg (27.0-33.0); Mean Corpuscular Volume 89.5 fL (80.0-98.0); Mean Platelet Volume 9.8 fL (9.4-12.3); Monocytes Absolute Auto 0.4 X10*3/uL (0.1-1.2); Neutrophils Absolute Auto 2.8 x10*3/uL (2.0-8.3); Neutrophils Percent Auto 52.2 % (45-73); Platelet Count 175 X10*3/uL (160-400); Red Blood Count 4.58 X10*6/uL (4.20-5.50); Red Cell Distribution Width 13.9 % (11.0-16.0); White Blood Count 5.3 X10*3/uL (4.8-10.8)
[2023-07-23 07:36] LABS: Valproate 84.6 mcg/mL (50.0-100.0)
[2023-07-23 07:40] LABS: Lithium 1.51 mmol/L (0.60-1.20)
[2023-07-23 07:45] VITALS: BP 153/69; PULSE 66; RESP 16; TEMP 35.8; O2SAT 96
[2023-07-23 07:48] LABS: Alanine Aminotransferase 13 U/L (0-31); Albumin Level 3.7 g/dL (3.5-5.0); Alkaline Phosphatase 64 U/L (39-117); Anion Gap 10 (12-20); Aspartate Amino Transferase 12 U/L (5-31); Bilirubin Total 0.5 mg/dL (0.0-1.0); Blood Urea Nitrogen 10 mg/dL (9-16); Calcium 9.5 mg/dL (8.4-10.2); Carbon Dioxide 32 mmol/L (22-29); Chloride 103 mmol/L (96-108); Creatinine Clr Calc Pharmacy 80.2; Estimated Glomerular Filt Rate > 60; Glucose Random 140 mg/dL (60-115); Potassium 3.9 mmol/L (3.3-5.1); Sodium 141 mmol/L (135-145); Total Protein 6.6 g/dL (6.5-8.0)
[2023-07-23 08:02] LABS: Thyroid Stimulating Hormone 4.46 uIU/mL (0.32-4.0)
[2023-07-23 08:46] LABS: Glucose, Whole Blood 150 mg/dL (60-115)
[2023-07-23] MEDS: lisinopriL 10 MG TABLET PO (09:07)
[2023-07-23] MEDS: Escitalopram Oxalate 10 MG TABLET PO (09:07)
[2023-07-23] MEDS: Propranolol HCL 40 MG TABLET 80 MG PO ×2 (09:07→20:16)
[2023-07-23] MEDS: risperiDONE 1 MG TABLET PO (09:08)
[2023-07-23] MEDS: Magnesium Oxide 400 MG TABLET PO (09:08)
[2023-07-23] MEDS: Insulin Glargine,Hum.rec.anlog 100 UNIT/ML 10 ML VIAL 28 UNIT SUBCUT (09:21)
[2023-07-23 12:17] LABS: Glucose, Whole Blood 261 mg/dL (60-115)
[2023-07-23] MEDS: Insulin Lispro 100 UNIT/ML 3 ML VIAL SUBCUT ×3 (12:23→20:17)
[2023-07-23 14:22] VITALS: BP 126/59; PULSE 69
[2023-07-23 17:26] LABS: Glucose, Whole Blood 173 mg/dL (60-115)
[2023-07-23 18:00] VITALS: BP 137/65; PULSE 65; RESP 16; TEMP 36.3; O2SAT 96
[2023-07-23] MEDS: Divalproex Sodium 500 MG TABLET.DR 1500 MG PO (18:11)
--- NOTE | 2023-07-23 18:47 | HO.PSYCHPN ---
Subjective Subjective Date of Service: 07/23/23 Reason For Visit: Psychosis Subjective Notes: Conditional Voluntary Healthcare Proxy: No Guardianship: No Medical Problems Affecting Mental Status: No Interim History: Diagnostics completed this a.m. [place] 1.5 without subjective/objective sx. Discussed with pt who denies sx, some mild nausea at times. Pt in bed, awake, alert, denies all sx of illness, states she feels well. Discussed postponing discharge to continue medication work and she concurs. Medication Compliance: Yes Side effects from medications: No Attending Groups: Yes Review of Systems Acute medical concerns: No Medical Review of Systems: unchanged Review of Systems Review of Systems [place] 1.5 Mental Status Exam Mental Status Exam Patient Appearance: Appropriate Patient Orientation: Person, Place and Situation Level of Consciousness: Alert Patient Behavior: Talkative Mood Description: Withdrawn Affect Description: Flat Patient Cognition Impaired: No Ability to Follow Directions: Good Speech Pattern: Spontaneous Speech Memory Description: Remote Impaired and Episodic Impaired Hallucinations: None Delusions: Not Present Thought Process: Intact and Distracted Thought Content: positive for [place] and positive for Circumstantial Judgement: Fair Diagnostics Vital Signs (24Hr): Vital Signs - 24 hr 07/23/23 07:45 07/23/23 14:22 07/23/23 18:00 Temperature 96.4 F L 97.3 F Pulse Rate 66 69 65 Respiratory Rate 16 16 Blood Pressure 153/69 H 126/59 L 137/65 Pulse Oximetry 96 96 Oxygen Delivery Method Room Air Room Air BMI result Body Mass Index 38.2 Labs 07/23/23 07:14 07/23/23 07:14 Labs: Laboratory Results - last 48 hr 07/21/23 07/22/23 07/22/23 21:10 08:39 12:17 WBC RBC Hgb Hct MCV MCH MCHC RDW Plt Count MPV Immature Gran % (Auto) Neut % (Auto) Lymph % (Auto) [place] % (Auto) Eos % (Auto) Baso % (Auto) Lymph # (Auto) [place] # (Auto) Eos # (Auto) Baso # (Auto) Abs Immat Gran (auto) Absolute Neuts (auto) Absolute Nucleated RBC Nucleated RBC % (auto) Sodium Potassium Chloride Carbon Dioxide Anion Gap BUN Creatinine Estim Creat Clear Calc Estimated GFR POC Glucose 247 H 170 H 239 H Random Glucose Calcium Total Bilirubin AST ALT Alkaline Phosphatase Total Protein Albumin TSH Valproic Acid [place] 07/22/23 07/22/23 07/23/23 17:03 20:00 07:14 WBC 5.3 RBC 4.58 Hgb 13.5 Hct 41.0 MCV 89.5 MCH 29.5 MCHC 32.9 RDW 13.9 Plt Count 175 MPV 9.8 Immature Gran % (Auto) 0.2 Neut % (Auto) 52.2 Lymph % (Auto) 36.3 [place] % (Auto) 8.0 Eos % (Auto) 2.9 Baso % (Auto) 0.4 Lymph # (Auto) 1.9 [place] # (Auto) 0.4 Eos # (Auto) 0.2 Baso # (Auto) 0.0 Abs Immat Gran (auto) 0.01 Absolute Neuts (auto) 2.8 Absolute Nucleated RBC 0.000 Nucleated RBC % (auto) 0.0 Sodium 141 Potassium 3.9 Chloride 103 Carbon Dioxide 32 H Anion Gap 10 L BUN 10 Creatinine 0.78 Estim Creat Clear Calc 80.2 Estimated GFR > 60 POC Glucose 246 H 186 H Random Glucose 140 H Calcium 9.5 Total Bilirubin 0.5 AST 12 ALT 13 Alkaline Phosphatase 64 Total Protein 6.6 Albumin 3.7 TSH 4.46 H Valproic Acid [place] 07/23/23 07/23/23 07/23/23 07:14 08:38 12:12 WBC RBC Hgb Hct MCV MCH MCHC RDW Plt Count MPV Immature Gran % (Auto) Neut % (Auto) Lymph % (Auto) [place] % (Auto) Eos % (Auto) Baso % (Auto) Lymph # (Auto) [place] # (Auto) Eos # (Auto) Baso # (Auto) Abs Immat Gran (auto) Absolute Neuts (auto) Absolute Nucleated RBC Nucleated RBC % (auto) Sodium Potassium Chloride Carbon Dioxide Anion Gap BUN Creatinine Estim Creat Clear Calc Estimated GFR POC Glucose 150 H 261 H Random Glucose Calcium Total Bilirubin AST ALT Alkaline Phosphatase Total Protein Albumin TSH Cancelled Valproic Acid 84.6 [place] 1.51 H* 07/23/23 17:20 WBC RBC Hgb Hct MCV MCH MCHC RDW Plt Count MPV Immature Gran % (Auto) Neut % (Auto) Lymph % (Auto) [place] % (Auto) Eos % (Auto) Baso % (Auto) Lymph # (Auto) [place] # (Auto) Eos # (Auto) Baso # (Auto) Abs Immat Gran (auto) Absolute Neuts (auto) Absolute Nucleated RBC Nucleated RBC % (auto) Sodium Potassium Chloride Carbon Dioxide Anion Gap BUN Creatinine Estim Creat Clear Calc Estimated GFR POC Glucose 173 H Random Glucose Calcium Total Bilirubin AST ALT Alkaline Phosphatase Total Protein Albumin TSH Valproic Acid [place] Medications Medications Current Medications Acetaminophen (Acetaminophen 325 Mg Tablet) 650 mg PO Q6H PRN PRN Reason: Headache/Pain Mild Scale (1-3) Last Admin: 07/07/23 17:29 Dose: 650 mg Al Hydroxide/Mg Hydroxide (Magnesium Hydrox/Alum Hydrox 30 Ml Oral.Susp) 30 ml PO Q6H PRN PRN Reason: Heartburn/Nausea Dextrose (Dextrose 50 % 25 Gm/50 Ml Syringe) 25 gm IVPUSH Q15M PRN; Protocol PRN Reason: per Hypoglycemia Standing Ord. Divalproex Sodium (Divalproex Sodium 500 Mg Tablet.Dr) 1,500 mg PO 1800 [facility] Last Admin: 07/23/23 18:11 Dose: 1,500 mg Escitalopram Oxalate (Escitalopram Oxalate 10 Mg Tablet) 10 mg PO DAILY [facility] Last Admin: 07/23/23 09:07 Dose: 10 mg Glucose (Glucose Gel 15 Gm Gel..Gram.) 15 gm PO Q15M PRN; Protocol PRN Reason: per Hypoglycemia Standing Ord. Hydroxyzine HCl (Hydroxyzine Hcl 25 Mg Tablet) 25 mg PO Q6H PRN PRN Reason: Anxiety Last Admin: 07/07/23 04:32 Dose: 25 mg Hydroxyzine HCl (Hydroxyzine Hcl 50 Mg Tablet) 50 mg PO BEDTIME PRN PRN Reason: insomnia Last Admin: 07/13/23 03:37 Dose: 50 mg Insulin Glargine (Insulin Glargine,Hum.Rec.Anlog 100 Unit/Ml 10 Ml Vial) 28 unit SUBCUT DAILY [facility] Last Admin: 07/23/23 09:21 Dose: 28 unit Insulin Human Lispro (Insulin Lispro 100 Unit/Ml 3 Ml Vial) 0 unit SUBCUT QIDACHS [facility]; Protocol Last Admin: 07/23/23 17:00 Dose: 2 unit Levothyroxine Sodium (Levothyroxine Sodium 125 Mcg Tablet) 125 mcg PO DAILY@0600 [facility] Last Admin: 07/23/23 05:36 Dose: 125 mcg Lidocaine (Lidocaine 4 % Patch Adh..Patch) 1 patch TRANSDERMA DAILY [facility]; Protocol Last Admin: 07/23/23 09:09 Dose: Not Given Lisinopril (Lisinopril 10 Mg Tablet) 10 mg PO DAILY [facility]; Protocol Last Admin: 07/23/23 09:07 Dose: 10 mg [place] Carbonate ([place] Carbonate 300 Mg Tablet) 450 mg PO BID [facility] Last Admin: 07/23/23 09:08 Dose: Not Given Loratadine (Loratadine 10 Mg Tablet) 10 mg PO DAILY PRN PRN Reason: allergy sx Magnesium Hydroxide (Milk Of Magnesia 30 Ml Oral.Susp) 30 ml PO DAILY PRN PRN Reason: Constipation Magnesium Oxide (Magnesium Oxide 400 Mg Tablet) 400 mg PO DAILY [facility] Last Admin: 07/23/23 09:08 Dose: 400 mg Multi-Ingred Cream/Lotion/Oil/Oint (Artificial Tears Ophth Oint 3.5 Gm Tube) 2 appl EYE-BOTH TID PRN; Protocol PRN Reason: Dry Eyes Last Admin: 07/11/23 11:44 Dose: 2 appl Olanzapine (Olanzapine 10 Mg Tablet) 10 mg PO BEDTIME [facility] Last Admin: 07/22/23 20:28 Dose: 10 mg Propranolol HCl (Propranolol Hcl 40 Mg Tablet) 80 mg PO TID [facility]; Protocol Last Admin: 07/23/23 17:53 Dose: Not Given Risperidone (Risperidone 1 Mg Tablet) 1 mg PO DAILY [facility] Last Admin: 07/23/23 09:08 Dose: 1 mg Trazodone HCl (Trazodone Hcl 100 Mg Tablet) 100 mg PO BEDTIME MRX1 PRN PRN Reason: Insomnia Last Admin: 07/17/23 21:41 Dose: 100 mg Allergies Allergies Allergy/AdvReac Type Severity Reaction Status Date / Time haloperidol [From Haldol] AdvReac Unknown Verified 10/28/20 06:32 Assessment & Plan Assessment & Plan (1) Schizoaffective disorder, bipolar type: Status: Acute Code(s): F25.0 - Schizoaffective disorder, bipolar type Plan 63 yo female, hx of schizoaffective disorder, bipolar type with some sx of psychosis and arnoldo. Will check levels. TSH 6.43, Mg 1.5 and Na 133. Plan: Collateral contact EKG, Valproate, [place] levels Magnesium Oxide 400 mg daily Increase Olanzapine to 20 mg HS 07/07/23: Increase Valproate to 1500 mg daily Increase [place] to 450 mg bid TSH, BMP on 07/10. 07/08/23 continue tx plan 07/09/23 continue treatment plan 07/11/23 Increase Olanzapine to 25 mg HS. 07/13/23 continue tx 07/14/23 Continue tx 07/15: no changes. [place] level ordered for tomorrow as declined today. 07/16: lithium level 1.15, no changes made 07/18/23: Increase Risperdal to 1 mg bid 07/19/23 Decrease Risperdal to 1 mg daily 07/20/23 Continue tx 07/21/23 Continue tx 07/22/23 Continue tx 07/23/23 Hold [place] Postpone discharge Patient educated on: therapeutic strategies and medical condition Informed Consent: does not understand Reason for continued inpatient stay Substantial Risk for: rapid decompensation Time Spent With Patient Time: Total time managing care of this patient today ____ minutes.
[2023-07-23] MEDS: OLANZapine 10 MG TABLET PO (20:16)
[2023-07-23 20:42] LABS: Glucose, Whole Blood 264 mg/dL (60-115)
[2023-07-24] MEDS: Levothyroxine Sodium 125 MCG TABLET PO (05:41)
[2023-07-24 09:00] LABS: Glucose, Whole Blood 140 mg/dL (60-115)
--- NOTE | 2023-07-24 09:06 | HO.PSYCHPN ---
Subjective Subjective Date of Service: 07/24/23 Reason For Visit: Psychosis Subjective Notes: Conditional Voluntary Interim History: Pt had lithium level of 1.5 on 07/23 [place] has been held. Today, pt presents with some upper myoclonus no ataxic gait, not acute confusional state. Awaiting repeat levels of lithium. CMP- without electrolyte imbalances nor renal impairment. Pt reports less voices, no SI/HI. She reports sleeping well. She does report some loose stools. will add loperamide prn. She is met with this editorial writer and SW to discuss discharge once lithium level and dose has been adjusted. Mental Status Exam Mental Status Exam Patient Appearance: Appropriate Patient Orientation: Person, Place and Situation Level of Consciousness: Alert Patient Behavior: Talkative Mood Description: Withdrawn Affect Description: Flat Patient Cognition Impaired: No Ability to Follow Directions: Good Speech Pattern: Spontaneous Speech Memory Description: Remote Impaired and Episodic Impaired Hallucinations: None Delusions: Not Present Thought Process: Intact and Distracted Thought Content: positive for [place] and positive for Circumstantial Judgement: Fair Diagnostics Vital Signs (24Hr): Vital Signs - 24 hr 07/23/23 14:22 07/23/23 18:00 Temperature 97.3 F Pulse Rate 69 65 Respiratory Rate 16 Blood Pressure 126/59 L 137/65 Pulse Oximetry 96 Oxygen Delivery Method Room Air BMI result Body Mass Index 38.2 Labs 07/23/23 07:14 07/23/23 07:14 Labs: Laboratory Results - last 48 hr 07/22/23 07/22/23 07/22/23 12:17 17:03 20:00 WBC RBC Hgb Hct MCV MCH MCHC RDW Plt Count MPV Immature Gran % (Auto) Neut % (Auto) Lymph % (Auto) [place] % (Auto) Eos % (Auto) Baso % (Auto) Lymph # (Auto) [place] # (Auto) Eos # (Auto) Baso # (Auto) Abs Immat Gran (auto) Absolute Neuts (auto) Absolute Nucleated RBC Nucleated RBC % (auto) Sodium Potassium Chloride Carbon Dioxide Anion Gap BUN Creatinine Estim Creat Clear Calc Estimated GFR POC Glucose 239 H 246 H 186 H Random Glucose Calcium Total Bilirubin AST ALT Alkaline Phosphatase Total Protein Albumin TSH Valproic Acid [place] 07/23/23 07/23/23 07/23/23 07:14 07:14 08:38 WBC 5.3 RBC 4.58 Hgb 13.5 Hct 41.0 MCV 89.5 MCH 29.5 MCHC 32.9 RDW 13.9 Plt Count 175 MPV 9.8 Immature Gran % (Auto) 0.2 Neut % (Auto) 52.2 Lymph % (Auto) 36.3 [place] % (Auto) 8.0 Eos % (Auto) 2.9 Baso % (Auto) 0.4 Lymph # (Auto) 1.9 [place] # (Auto) 0.4 Eos # (Auto) 0.2 Baso # (Auto) 0.0 Abs Immat Gran (auto) 0.01 Absolute Neuts (auto) 2.8 Absolute Nucleated RBC 0.000 Nucleated RBC % (auto) 0.0 Sodium 141 Potassium 3.9 Chloride 103 Carbon Dioxide 32 H Anion Gap 10 L BUN 10 Creatinine 0.78 Estim Creat Clear Calc 80.2 Estimated GFR > 60 POC Glucose 150 H Random Glucose 140 H Calcium 9.5 Total Bilirubin 0.5 AST 12 ALT 13 Alkaline Phosphatase 64 Total Protein 6.6 Albumin 3.7 TSH 4.46 H Cancelled Valproic Acid 84.6 [place] 1.51 H* 07/23/23 07/23/23 07/23/23 12:12 17:20 20:13 WBC RBC Hgb Hct MCV MCH MCHC RDW Plt Count MPV Immature Gran % (Auto) Neut % (Auto) Lymph % (Auto) [place] % (Auto) Eos % (Auto) Baso % (Auto) Lymph # (Auto) [place] # (Auto) Eos # (Auto) Baso # (Auto) Abs Immat Gran (auto) Absolute Neuts (auto) Absolute Nucleated RBC Nucleated RBC % (auto) Sodium Potassium Chloride Carbon Dioxide Anion Gap BUN Creatinine Estim Creat Clear Calc Estimated GFR POC Glucose 261 H 173 H 264 H Random Glucose Calcium Total Bilirubin AST ALT Alkaline Phosphatase Total Protein Albumin TSH Valproic Acid [place] 07/24/23 08:51 WBC RBC Hgb Hct MCV MCH MCHC RDW Plt Count MPV Immature Gran % (Auto) Neut % (Auto) Lymph % (Auto) [place] % (Auto) Eos % (Auto) Baso % (Auto) Lymph # (Auto) [place] # (Auto) Eos # (Auto) Baso # (Auto) Abs Immat Gran (auto) Absolute Neuts (auto) Absolute Nucleated RBC Nucleated RBC % (auto) Sodium Potassium Chloride Carbon Dioxide Anion Gap BUN Creatinine Estim Creat Clear Calc Estimated GFR POC Glucose 140 H Random Glucose Calcium Total Bilirubin AST ALT Alkaline Phosphatase Total Protein Albumin TSH Valproic Acid [place] Medications Medications Current Medications Acetaminophen (Acetaminophen 325 Mg Tablet) 650 mg PO Q6H PRN PRN Reason: Headache/Pain Mild Scale (1-3) Last Admin: 07/07/23 17:29 Dose: 650 mg Al Hydroxide/Mg Hydroxide (Magnesium Hydrox/Alum Hydrox 30 Ml Oral.Susp) 30 ml PO Q6H PRN PRN Reason: Heartburn/Nausea Dextrose (Dextrose 50 % 25 Gm/50 Ml Syringe) 25 gm IVPUSH Q15M PRN; Protocol PRN Reason: per Hypoglycemia Standing Ord. Divalproex Sodium (Divalproex Sodium 500 Mg Tablet.Dr) 1,500 mg PO 1800 [facility] Last Admin: 07/23/23 18:11 Dose: 1,500 mg Escitalopram Oxalate (Escitalopram Oxalate 10 Mg Tablet) 10 mg PO DAILY [facility] Last Admin: 07/23/23 09:07 Dose: 10 mg Glucose (Glucose Gel 15 Gm Gel..Gram.) 15 gm PO Q15M PRN; Protocol PRN Reason: per Hypoglycemia Standing Ord. Hydroxyzine HCl (Hydroxyzine Hcl 25 Mg Tablet) 25 mg PO Q6H PRN PRN Reason: Anxiety Last Admin: 07/07/23 04:32 Dose: 25 mg Hydroxyzine HCl (Hydroxyzine Hcl 50 Mg Tablet) 50 mg PO BEDTIME PRN PRN Reason: insomnia Last Admin: 07/13/23 03:37 Dose: 50 mg Insulin Glargine (Insulin Glargine,Hum.Rec.Anlog 100 Unit/Ml 10 Ml Vial) 28 unit SUBCUT DAILY [facility] Last Admin: 07/23/23 09:21 Dose: 28 unit Insulin Human Lispro (Insulin Lispro 100 Unit/Ml 3 Ml Vial) 0 unit SUBCUT QIDACHS [facility]; Protocol Last Admin: 07/23/23 20:17 Dose: 6 unit Levothyroxine Sodium (Levothyroxine Sodium 125 Mcg Tablet) 125 mcg PO DAILY@0600 [facility] Last Admin: 07/24/23 05:41 Dose: 125 mcg Lidocaine (Lidocaine 4 % Patch Adh..Patch) 1 patch TRANSDERMA DAILY [facility]; Protocol Last Admin: 07/23/23 09:09 Dose: Not Given Lisinopril (Lisinopril 10 Mg Tablet) 10 mg PO DAILY [facility]; Protocol Last Admin: 07/23/23 09:07 Dose: 10 mg [place] Carbonate ([place] Carbonate 300 Mg Tablet) 450 mg PO BID [facility] Last Admin: 07/23/23 09:08 Dose: Not Given Loratadine (Loratadine 10 Mg Tablet) 10 mg PO DAILY PRN PRN Reason: allergy sx Magnesium Hydroxide (Milk Of Magnesia 30 Ml Oral.Susp) 30 ml PO DAILY PRN PRN Reason: Constipation Magnesium Oxide (Magnesium Oxide 400 Mg Tablet) 400 mg PO DAILY [facility] Last Admin: 07/23/23 09:08 Dose: 400 mg Multi-Ingred Cream/Lotion/Oil/Oint (Artificial Tears Ophth Oint 3.5 Gm Tube) 2 appl EYE-BOTH TID PRN; Protocol PRN Reason: Dry Eyes Last Admin: 07/11/23 11:44 Dose: 2 appl Olanzapine (Olanzapine 10 Mg Tablet) 10 mg PO BEDTIME [facility] Last Admin: 07/23/23 20:16 Dose: 10 mg Propranolol HCl (Propranolol Hcl 40 Mg Tablet) 80 mg PO TID [facility]; Protocol Last Admin: 07/23/23 20:16 Dose: 80 mg Risperidone (Risperidone 1 Mg Tablet) 1 mg PO DAILY [facility] Last Admin: 07/23/23 09:08 Dose: 1 mg Trazodone HCl (Trazodone Hcl 100 Mg Tablet) 100 mg PO BEDTIME MRX1 PRN PRN Reason: Insomnia Last Admin: 07/17/23 21:41 Dose: 100 mg Allergies Allergies Allergy/AdvReac Type Severity Reaction Status Date / Time haloperidol [From Haldol] AdvReac Unknown Verified 10/28/20 06:32 Assessment & Plan Assessment & Plan (1) Schizoaffective disorder, bipolar type: Status: Acute Code(s): F25.0 - Schizoaffective disorder, bipolar type Plan 63 yo female, hx of schizoaffective disorder, bipolar type with some sx of psychosis and arnoldo. Will check levels. TSH 6.43, Mg 1.5 and Na 133. Plan: Collateral contact EKG, Valproate, [place] levels Magnesium Oxide 400 mg daily Increase Olanzapine to 20 mg HS 07/07/23: Increase Valproate to 1500 mg daily Increase [place] to 450 mg bid TSH, BMP on 07/10. 07/08/23 continue tx plan 07/09/23 continue treatment plan 07/11/23 Increase Olanzapine to 25 mg HS. 07/13/23 continue tx 07/14/23 Continue tx 07/15: no changes. [place] level ordered for tomorrow as declined today. 07/16: lithium level 1.15, no changes made 07/18/23: Increase Risperdal to 1 mg bid 07/19/23 Decrease Risperdal to 1 mg daily 07/20/23 Continue tx 07/21/23 Continue tx 07/22/23 Continue tx 07/23/23 Hold [place] Postpone discharge 07/24 pending repeat lithium level. continue to hold lithium. Reason for continued inpatient stay Substantial Risk for: inability to function Time Spent With Patient Time: Total time managing care of this patient today ____ minutes.
[2023-07-24] MEDS: Propranolol HCL 40 MG TABLET 80 MG PO ×3 (09:35→20:45)
[2023-07-24] MEDS: lisinopriL 10 MG TABLET PO (09:35)
[2023-07-24] MEDS: risperiDONE 1 MG TABLET PO (09:35)
[2023-07-24] MEDS: Escitalopram Oxalate 10 MG TABLET PO (09:35)
[2023-07-24] MEDS: Magnesium Oxide 400 MG TABLET PO (09:35)
[2023-07-24] MEDS: Insulin Glargine,Hum.rec.anlog 100 UNIT/ML 10 ML VIAL 28 UNIT SUBCUT (09:35)
[2023-07-24 12:33] LABS: Glucose, Whole Blood 184 mg/dL (60-115)
[2023-07-24] MEDS: Loperamide HCl 2 MG CAPSULE 4 MG PO (13:04)
[2023-07-24] MEDS: Insulin Lispro 100 UNIT/ML 3 ML VIAL SUBCUT ×3 (13:04→21:05)
[2023-07-24 14:33] VITALS: BP 116/55; PULSE 72; RESP 16
[2023-07-24 17:22] LABS: Glucose, Whole Blood 267 mg/dL (60-115)
[2023-07-24] MEDS: Divalproex Sodium 500 MG TABLET.DR 1500 MG PO (18:36)
[2023-07-24 19:55] VITALS: BP 127/58; PULSE 75; TEMP 36.1; O2SAT 94
[2023-07-24] MEDS: traZODone HCL 100 MG TABLET PO (20:45)
[2023-07-24] MEDS: OLANZapine 10 MG TABLET PO (20:45)
[2023-07-24 20:54] LABS: Glucose, Whole Blood 371 mg/dL (60-115)
[2023-07-25] MEDS: Levothyroxine Sodium 125 MCG TABLET PO (05:53)
[2023-07-25 07:53] LABS: Lithium 0.83 mmol/L (0.60-1.20)
[2023-07-25 07:59] LABS: Anion Gap 10 (12-20); Blood Urea Nitrogen 11 mg/dL (9-16); Calcium 9.3 mg/dL (8.4-10.2); Carbon Dioxide 32 mmol/L (22-29); Chloride 104 mmol/L (96-108); Creatinine Clr Calc Pharmacy 84.5; Estimated Glomerular Filt Rate > 60; Glucose Random 102 mg/dL (60-115); Potassium 4.2 mmol/L (3.3-5.1); Sodium 142 mmol/L (135-145)
[2023-07-25 08:15] VITALS: BP 112/67; PULSE 91; RESP 18; TEMP 36; O2SAT 98
[2023-07-25 08:26] LABS: Glucose, Whole Blood 107 mg/dL (60-115)
[2023-07-25] MEDS: lisinopriL 10 MG TABLET PO (09:40)
[2023-07-25] MEDS: Insulin Glargine,Hum.rec.anlog 100 UNIT/ML 10 ML VIAL 28 UNIT SUBCUT (09:40)
[2023-07-25] MEDS: Magnesium Oxide 400 MG TABLET PO (09:40)
[2023-07-25] MEDS: Escitalopram Oxalate 10 MG TABLET PO (09:40)
[2023-07-25] MEDS: Propranolol HCL 40 MG TABLET 80 MG PO ×3 (09:40→22:13)
[2023-07-25] MEDS: risperiDONE 1 MG TABLET PO (09:40)
[2023-07-25 12:38] LABS: Glucose, Whole Blood 205 mg/dL (60-115)
[2023-07-25] MEDS: Insulin Lispro 100 UNIT/ML 3 ML VIAL SUBCUT ×3 (13:14→22:14)
[2023-07-25 16:05] VITALS: BP 149/67; PULSE 60; TEMP 36
--- NOTE | 2023-07-25 16:30 | P.PNPSI_ITS ---
Subjective Subjective Date of Service: 07/25/23 Reason For Visit: Psychosis Subjective Notes: Conditional Voluntary Healthcare Proxy: No Guardianship: No Medical Problems Affecting Mental Status: No Interim History: [place] level 0.83 Reports she continues to feel overmedicated. Denies SI/HI/ AH/VH. States she is sleeping well, eating well. No lability. Asks about discharge. Discussed by the end of the week. She agrees. Medication Compliance: Yes Side effects from medications: Yes (reports feeling overmedicated) Attending Groups: No Review of Systems Acute medical concerns: No Medical Review of Systems: unchanged Review of Systems Review of Systems [place] 0.83 Yes all other systems are reviewed and are negative Mental Status Exam Mental Status Exam Patient Appearance: Appropriate Patient Orientation: Person, Place and Situation Level of Consciousness: Alert Patient Behavior: Talkative Mood Description: Withdrawn Affect Description: Flat Patient Cognition Impaired: No Ability to Follow Directions: Good Speech Pattern: Spontaneous Speech Memory Description: Remote Impaired and Episodic Impaired Hallucinations: None Delusions: Not Present Thought Process: Intact and Distracted Thought Content: positive for [place] and positive for Circumstantial Judgement: Fair Diagnostics Vital Signs (24Hr): Vital Signs - 24 hr 07/24/23 19:55 07/25/23 08:15 Temperature 97 F 96.8 F Pulse Rate 75 91 Respiratory Rate 18 Blood Pressure 127/58 L 112/67 Pulse Oximetry 94 98 Oxygen Delivery Method Room Air Room Air BMI result Body Mass Index 38.2 Labs 07/23/23 07:14 07/25/23 07:29 Labs: Laboratory Results - last 48 hr 07/23/23 07/23/23 07/24/23 17:20 20:13 08:51 Sodium Potassium Chloride Carbon Dioxide Anion Gap BUN Creatinine Estim Creat Clear Calc Estimated GFR POC Glucose 173 H 264 H 140 H Random Glucose Calcium [place] 07/24/23 07/24/23 07/24/23 12:29 17:18 20:44 Sodium Potassium Chloride Carbon Dioxide Anion Gap BUN Creatinine Estim Creat Clear Calc Estimated GFR POC Glucose 184 H 267 H 371 H* Random Glucose Calcium [place] 07/25/23 07/25/23 07/25/23 07:29 08:23 12:32 Sodium 142 Potassium 4.2 Chloride 104 Carbon Dioxide 32 H Anion Gap 10 L BUN 11 Creatinine 0.74 Estim Creat Clear Calc 84.5 Estimated GFR > 60 POC Glucose 107 205 H Random Glucose 102 Calcium 9.3 [place] 0.83 Medications Medications Current Medications Acetaminophen (Acetaminophen 325 Mg Tablet) 650 mg PO Q6H PRN PRN Reason: Headache/Pain Mild Scale (1-3) Last Admin: 07/07/23 17:29 Dose: 650 mg Al Hydroxide/Mg Hydroxide (Magnesium Hydrox/Alum Hydrox 30 Ml Oral.Susp) 30 ml PO Q6H PRN PRN Reason: Heartburn/Nausea Dextrose (Dextrose 50 % 25 Gm/50 Ml Syringe) 25 gm IVPUSH Q15M PRN; Protocol PRN Reason: per Hypoglycemia Standing Ord. Divalproex Sodium (Divalproex Sodium 500 Mg Tablet.) 1,500 mg PO 1800 [facility] Last Admin: 07/24/23 18:36 Dose: 1,500 mg Escitalopram Oxalate (Escitalopram Oxalate 10 Mg Tablet) 10 mg PO DAILY [facility] Last Admin: 07/25/23 09:40 Dose: 10 mg Glucose (Glucose Gel 15 Gm Gel..Gram.) 15 gm PO Q15M PRN; Protocol PRN Reason: per Hypoglycemia Standing Ord. Hydroxyzine HCl (Hydroxyzine Hcl 25 Mg Tablet) 25 mg PO Q6H PRN PRN Reason: Anxiety Last Admin: 07/07/23 04:32 Dose: 25 mg Hydroxyzine HCl (Hydroxyzine Hcl 50 Mg Tablet) 50 mg PO BEDTIME PRN PRN Reason: insomnia Last Admin: 07/13/23 03:37 Dose: 50 mg Insulin Glargine (Insulin Glargine,Hum.Rec.Anlog 100 Unit/Ml 10 Ml Vial) 28 unit SUBCUT DAILY [facility] Last Admin: 07/25/23 09:40 Dose: 28 unit Insulin Human Lispro (Insulin Lispro 100 Unit/Ml 3 Ml Vial) 0 unit SUBCUT QIDACHS [facility]; Protocol Last Admin: 07/25/23 13:14 Dose: 4 unit Levothyroxine Sodium (Levothyroxine Sodium 125 Mcg Tablet) 125 mcg PO DAILY@0600 [facility] Last Admin: 07/25/23 05:53 Dose: 125 mcg Lidocaine (Lidocaine 4 % Patch Adh..Patch) 1 patch TRANSDERMA DAILY [facility]; Protocol Last Admin: 07/25/23 09:44 Dose: Not Given Lisinopril (Lisinopril 10 Mg Tablet) 10 mg PO DAILY [facility]; Protocol Last Admin: 07/25/23 09:40 Dose: 10 mg [place] Carbonate ([place] Carbonate 300 Mg Tablet) 450 mg PO BID [facility] Last Admin: 07/23/23 09:08 Dose: Not Given Loperamide HCl (Loperamide Hcl 2 Mg Capsule) 2 mg PO Q6H PRN PRN Reason: Loose Stool Loratadine (Loratadine 10 Mg Tablet) 10 mg PO DAILY PRN PRN Reason: allergy sx Magnesium Hydroxide (Milk Of Magnesia 30 Ml Oral.Susp) 30 ml PO DAILY PRN PRN Reason: Constipation Magnesium Oxide (Magnesium Oxide 400 Mg Tablet) 400 mg PO DAILY [facility] Last Admin: 07/25/23 09:40 Dose: 400 mg Multi-Ingred Cream/Lotion/Oil/Oint (Artificial Tears Ophth Oint 3.5 Gm Tube) 2 appl EYE-BOTH TID PRN; Protocol PRN Reason: Dry Eyes Last Admin: 07/11/23 11:44 Dose: 2 appl Olanzapine (Olanzapine 10 Mg Tablet) 10 mg PO BEDTIME [facility] Last Admin: 07/24/23 20:45 Dose: 10 mg Propranolol HCl (Propranolol Hcl 40 Mg Tablet) 80 mg PO TID [facility]; Protocol Last Admin: 07/25/23 16:12 Dose: 80 mg Risperidone (Risperidone 1 Mg Tablet) 1 mg PO DAILY [facility] Last Admin: 07/25/23 09:40 Dose: 1 mg Trazodone HCl (Trazodone Hcl 100 Mg Tablet) 100 mg PO BEDTIME MRX1 PRN PRN Reason: Insomnia Last Admin: 07/24/23 20:45 Dose: 100 mg Allergies Allergies Allergy/AdvReac Type Severity Reaction Status Date / Time haloperidol [From Haldol] AdvReac Unknown Verified 10/28/20 06:32 Assessment & Plan Assessment & Plan (1) Schizoaffective disorder, bipolar type: Status: Acute Code(s): F25.0 - Schizoaffective disorder, bipolar type Plan 63 yo female, hx of schizoaffective disorder, bipolar type with some sx of psychosis and arnoldo. Will check levels. TSH 6.43, Mg 1.5 and Na 133. Plan: Collateral contact EKG, Valproate, [place] levels Magnesium Oxide 400 mg daily Increase Olanzapine to 20 mg HS 07/07/23: Increase Valproate to 1500 mg daily Increase [place] to 450 mg bid TSH, BMP on 07/10. 07/08/23 continue tx plan 07/09/23 continue treatment plan 07/11/23 Increase Olanzapine to 25 mg HS. 07/13/23 continue tx 07/14/23 Continue tx 07/15: no changes. [place] level ordered for tomorrow as declined today. 07/16: lithium level 1.15, no changes made 07/18/23: Increase Risperdal to 1 mg bid 07/19/23 Decrease Risperdal to 1 mg daily 07/20/23 Continue tx 07/21/23 Continue tx 07/22/23 Continue tx 07/23/23 Hold [place] Postpone discharge 07/24 pending repeat lithium level. continue to hold lithium. 07/25 [place] 150 mg bid Decrease Olanzapine to 5 mg HS Informed Consent: does not understand Reason for continued inpatient stay Substantial Risk for: rapid decompensation and med/psych decompensation Time Spent With Patient Time: Total time managing care of this patient today ____ minutes.
[2023-07-25 17:21] LABS: Glucose, Whole Blood 223 mg/dL (60-115)
[2023-07-25] MEDS: Divalproex Sodium 500 MG TABLET.DR 1500 MG PO (17:38)
[2023-07-25 21:57] LABS: Glucose, Whole Blood 252 mg/dL (60-115)
[2023-07-25] MEDS: Lithium Carbonate 300 MG TABLET 150 MG PO (22:12)
[2023-07-25] MEDS: OLANZapine 5 MG TABLET PO (22:14)
[2023-07-25] MEDS: traZODone HCL 100 MG TABLET PO (22:14)
[2023-07-26] MEDS: Levothyroxine Sodium 125 MCG TABLET PO (06:11)
[2023-07-26 08:12] LABS: Glucose, Whole Blood 158 mg/dL (60-115)
[2023-07-26] MEDS: Magnesium Oxide 400 MG TABLET PO (08:19)
[2023-07-26] MEDS: Escitalopram Oxalate 10 MG TABLET PO (08:19)
[2023-07-26] MEDS: Lithium Carbonate 300 MG TABLET 150 MG PO ×2 (08:19→20:04)
[2023-07-26 08:20] VITALS: BP 147/66; PULSE 62; RESP 16; TEMP 36.2; O2SAT 96
[2023-07-26] MEDS: Propranolol HCL 40 MG TABLET 80 MG PO ×3 (08:20→20:05)
[2023-07-26] MEDS: lisinopriL 10 MG TABLET PO (08:20)
[2023-07-26] MEDS: risperiDONE 1 MG TABLET PO (08:20)
[2023-07-26] MEDS: Insulin Glargine,Hum.rec.anlog 100 UNIT/ML 10 ML VIAL 28 UNIT SUBCUT (08:22)
[2023-07-26] MEDS: Insulin Lispro 100 UNIT/ML 3 ML VIAL SUBCUT ×3 (08:22→20:03)
--- NOTE | 2023-07-26 10:59 | HO.PSYCHPN ---
Subjective Subjective Date of Service: 07/26/23 Reason For Visit: Psychosis Subjective Notes: Conditional Voluntary Interim History: [place] level 0.83 Pt mostly in bed. She denies hearing voices or seeing things that others can't see. She denies SI/HI. She is eating fairly well. NOt very interactive with peers. She asks about discharge, reminded that it seems to be towards end of this week. Medication Compliance: Yes Side effects from medications: No Attending Groups: No Review of Systems Review of Systems [place] 0.83 Yes all other systems are reviewed and are negative and Unobtainable due to mental status Mental Status Exam Mental Status Exam Patient Appearance: Appropriate Patient Orientation: Person, Place and Situation Level of Consciousness: Alert Patient Behavior: Talkative Mood Description: Withdrawn Affect Description: Flat Patient Cognition Impaired: No Ability to Follow Directions: Good Speech Pattern: Spontaneous Speech Memory Description: Remote Impaired and Episodic Impaired Diagnostics Vital Signs (24Hr): Vital Signs - 24 hr 07/25/23 16:05 07/26/23 08:20 Temperature 96.8 F 97.1 F Pulse Rate 60 62 Respiratory Rate 16 Blood Pressure 149/67 H 147/66 H Pulse Oximetry 96 Oxygen Delivery Method Room Air BMI result Body Mass Index 38.2 Labs 07/23/23 07:14 07/25/23 07:29 Labs: Laboratory Results - last 48 hr 07/24/23 07/24/23 07/24/23 12:29 17:18 20:44 Sodium Potassium Chloride Carbon Dioxide Anion Gap BUN Creatinine Estim Creat Clear Calc Estimated GFR POC Glucose 184 H 267 H 371 H* Random Glucose Calcium [place] 07/25/23 07/25/23 07/25/23 07:29 08:23 12:32 Sodium 142 Potassium 4.2 Chloride 104 Carbon Dioxide 32 H Anion Gap 10 L BUN 11 Creatinine 0.74 Estim Creat Clear Calc 84.5 Estimated GFR > 60 POC Glucose 107 205 H Random Glucose 102 Calcium 9.3 [place] 0.83 07/25/23 07/25/23 07/26/23 17:17 21:49 08:00 Sodium Potassium Chloride Carbon Dioxide Anion Gap BUN Creatinine Estim Creat Clear Calc Estimated GFR POC Glucose 223 H 252 H 158 H Random Glucose Calcium [place] Medications Medications Current Medications Acetaminophen (Acetaminophen 325 Mg Tablet) 650 mg PO Q6H PRN PRN Reason: Headache/Pain Mild Scale (1-3) Last Admin: 07/07/23 17:29 Dose: 650 mg Al Hydroxide/Mg Hydroxide (Magnesium Hydrox/Alum Hydrox 30 Ml Oral.Susp) 30 ml PO Q6H PRN PRN Reason: Heartburn/Nausea Dextrose (Dextrose 50 % 25 Gm/50 Ml Syringe) 25 gm IVPUSH Q15M PRN; Protocol PRN Reason: per Hypoglycemia Standing Ord. Divalproex Sodium (Divalproex Sodium 500 Mg Tablet.Dr) 1,500 mg PO 1800 [facility] Last Admin: 07/25/23 17:38 Dose: 1,500 mg Escitalopram Oxalate (Escitalopram Oxalate 10 Mg Tablet) 10 mg PO DAILY [facility] Last Admin: 07/26/23 08:19 Dose: 10 mg Glucose (Glucose Gel 15 Gm Gel..Gram.) 15 gm PO Q15M PRN; Protocol PRN Reason: per Hypoglycemia Standing Ord. Hydroxyzine HCl (Hydroxyzine Hcl 25 Mg Tablet) 25 mg PO Q6H PRN PRN Reason: Anxiety Last Admin: 07/07/23 04:32 Dose: 25 mg Hydroxyzine HCl (Hydroxyzine Hcl 50 Mg Tablet) 50 mg PO BEDTIME PRN PRN Reason: insomnia Last Admin: 07/13/23 03:37 Dose: 50 mg Insulin Glargine (Insulin Glargine,Hum.Rec.Anlog 100 Unit/Ml 10 Ml Vial) 28 unit SUBCUT DAILY [facility] Last Admin: 07/26/23 08:22 Dose: 28 unit Insulin Human Lispro (Insulin Lispro 100 Unit/Ml 3 Ml Vial) 0 unit SUBCUT QIDACHS [facility]; Protocol Last Admin: 07/26/23 08:22 Dose: 2 unit Levothyroxine Sodium (Levothyroxine Sodium 125 Mcg Tablet) 125 mcg PO DAILY@0600 [facility] Last Admin: 07/26/23 06:11 Dose: 125 mcg Lidocaine (Lidocaine 4 % Patch Adh..Patch) 1 patch TRANSDERMA DAILY [facility]; Protocol Last Admin: 07/26/23 08:22 Dose: Not Given Lisinopril (Lisinopril 10 Mg Tablet) 10 mg PO DAILY [facility]; Protocol Last Admin: 07/26/23 08:20 Dose: 10 mg [place] Carbonate ([place] Carbonate 300 Mg Tablet) 150 mg PO BID [facility] Last Admin: 07/26/23 08:19 Dose: 150 mg Loperamide HCl (Loperamide Hcl 2 Mg Capsule) 2 mg PO Q6H PRN PRN Reason: Loose Stool Loratadine (Loratadine 10 Mg Tablet) 10 mg PO DAILY PRN PRN Reason: allergy sx Magnesium Hydroxide (Milk Of Magnesia 30 Ml Oral.Susp) 30 ml PO DAILY PRN PRN Reason: Constipation Magnesium Oxide (Magnesium Oxide 400 Mg Tablet) 400 mg PO DAILY SONIA Last Admin: 07/26/23 08:19 Dose: 400 mg Multi-Ingred Cream/Lotion/Oil/Oint (Artificial Tears Ophth Oint 3.5 Gm Tube) 2 appl EYE-BOTH TID PRN; Protocol PRN Reason: Dry Eyes Last Admin: 07/11/23 11:44 Dose: 2 appl Olanzapine (Olanzapine 5 Mg Tablet) 5 mg PO BEDTIME SONIA Last Admin: 07/25/23 22:14 Dose: 5 mg Propranolol HCl (Propranolol Hcl 40 Mg Tablet) 80 mg PO TID SONIA; Protocol Last Admin: 07/26/23 08:20 Dose: 80 mg Risperidone (Risperidone 1 Mg Tablet) 1 mg PO DAILY SONIA Last Admin: 07/26/23 08:20 Dose: 1 mg Trazodone HCl (Trazodone Hcl 100 Mg Tablet) 100 mg PO BEDTIME MRX1 PRN PRN Reason: Insomnia Last Admin: 07/25/23 22:14 Dose: 100 mg Allergies Allergies Allergy/AdvReac Type Severity Reaction Status Date / Time haloperidol [From Haldol] AdvReac Unknown Verified 10/28/20 06:32 Assessment & Plan Assessment & Plan (1) Schizoaffective disorder, bipolar type: Status: Acute Code(s): F25.0 - Schizoaffective disorder, bipolar type Plan 63 yo female, hx of schizoaffective disorder, bipolar type with some sx of psychosis and arnoldo. Will check levels. TSH 6.43, Mg 1.5 and Na 133. Plan: Collateral contact EKG, Valproate, [place] levels Magnesium Oxide 400 mg daily Increase Olanzapine to 20 mg HS 07/07/23: Increase Valproate to 1500 mg daily Increase [place] to 450 mg bid TSH, BMP on 07/10. 07/08/23 continue tx plan 07/09/23 continue treatment plan 07/11/23 Increase Olanzapine to 25 mg HS. 07/13/23 continue tx 07/14/23 Continue tx 07/15: no changes. [place] level ordered for tomorrow as declined today. 07/16: lithium level 1.15, no changes made 07/18/23: Increase Risperdal to 1 mg bid 07/19/23 Decrease Risperdal to 1 mg daily 07/20/23 Continue tx 07/21/23 Continue tx 07/22/23 Continue tx 07/23/23 Hold [place] Postpone discharge 07/24 pending repeat lithium level. continue to hold lithium. 07/25 [place] 150 mg bid Decrease Olanzapine to 5 mg HS 07/26 continue tx. Reason for continued inpatient stay Substantial Risk for: inability to function Time Spent With Patient Time: Total time managing care of this patient today ____ minutes.
[2023-07-26 12:32] LABS: Glucose, Whole Blood 180 mg/dL (60-115)
[2023-07-26 15:00] VITALS: BP 101/73; PULSE 71
[2023-07-26 16:39] VITALS: BP 119/58; PULSE 61; RESP 18; TEMP 36.1; O2SAT 97
[2023-07-26 17:29] LABS: Glucose, Whole Blood 290 mg/dL (60-115)
[2023-07-26 19:52] LABS: Glucose, Whole Blood 338 mg/dL (60-115)
[2023-07-26] MEDS: Divalproex Sodium 500 MG TABLET.DR 1500 MG PO (20:03)
[2023-07-26] MEDS: OLANZapine 5 MG TABLET PO (20:05)
[2023-07-27] MEDS: traZODone HCL 100 MG TABLET PO ×2 (02:39→21:18)
[2023-07-27] MEDS: Levothyroxine Sodium 125 MCG TABLET PO (06:19)
[2023-07-27 08:09] LABS: Glucose, Whole Blood 182 mg/dL (60-115)
[2023-07-27] MEDS: Escitalopram Oxalate 10 MG TABLET PO (08:29)
[2023-07-27] MEDS: risperiDONE 1 MG TABLET PO (08:29)
[2023-07-27] MEDS: Propranolol HCL 40 MG TABLET 80 MG PO ×3 (08:29→21:18)
[2023-07-27] MEDS: Lithium Carbonate 300 MG TABLET 150 MG PO ×2 (08:29→21:19)
[2023-07-27] MEDS: lisinopriL 10 MG TABLET PO (08:29)
[2023-07-27] MEDS: Magnesium Oxide 400 MG TABLET PO (08:29)
[2023-07-27] MEDS: Insulin Lispro 100 UNIT/ML 3 ML VIAL SUBCUT ×4 (08:31→21:19)
[2023-07-27] MEDS: Insulin Glargine,Hum.rec.anlog 100 UNIT/ML 10 ML VIAL 28 UNIT SUBCUT (08:32)
[2023-07-27 08:33] VITALS: BP 145/83; PULSE 70; RESP 16; TEMP 36.7; O2SAT 96
[2023-07-27 10:49] VITALS: BMI 38.4
[2023-07-27 12:54] LABS: Glucose, Whole Blood 215 mg/dL (60-115)
[2023-07-27 14:25] VITALS: BP 163/70; PULSE 78
--- NOTE | 2023-07-27 15:18 | HO.PSYCHPN ---
Subjective Subjective Date of Service: 07/27/23 Reason For Visit: Psychosis Subjective Notes: Conditional Voluntary Healthcare Proxy: No Guardianship: No Medical Problems Affecting Mental Status: No Interim History: Pt reports feeling prepared to return to her SNF. Denies sx of concern. Denies medication SE Appears more alert and attentive with medication changes Denies feeling overmedicated or sedate. Medication Compliance: Yes Side effects from medications: No Attending Groups: Yes Review of Systems Acute medical concerns: No Medical Review of Systems: unchanged Review of Systems Review of Systems Yes all other systems are reviewed and are negative Mental Status Exam Mental Status Exam Patient Appearance: Appropriate Patient Orientation: Person, Place and Situation Level of Consciousness: Alert Patient Behavior: Talkative Mood Description: Withdrawn Affect Description: Flat Patient Cognition Impaired: No Ability to Follow Directions: Good Speech Pattern: Spontaneous Speech Memory Description: Remote Impaired and Episodic Impaired Diagnostics Vital Signs (24Hr): Vital Signs - 24 hr 07/26/23 16:39 07/27/23 08:33 07/27/23 14:25 Temperature 96.9 F 98.1 F Pulse Rate 61 70 78 Respiratory Rate 18 16 Blood Pressure 119/58 L 145/83 H 163/70 H Pulse Oximetry 97 96 Oxygen Delivery Method Room Air Room Air BMI result Body Mass Index 38.4 Labs 07/23/23 07:14 07/25/23 07:29 Labs: Laboratory Results - last 48 hr 07/25/23 07/25/23 07/26/23 17:17 21:49 08:00 POC Glucose 223 H 252 H 158 H 07/26/23 07/26/23 07/26/23 12:24 17:25 19:40 POC Glucose 180 H 290 H 338 H 07/27/23 07/27/23 07:44 12:50 POC Glucose 182 H 215 H Medications Medications Current Medications Acetaminophen (Acetaminophen 325 Mg Tablet) 650 mg PO Q6H PRN PRN Reason: Headache/Pain Mild Scale (1-3) Last Admin: 07/07/23 17:29 Dose: 650 mg Al Hydroxide/Mg Hydroxide (Magnesium Hydrox/Alum Hydrox 30 Ml Oral.Susp) 30 ml PO Q6H PRN PRN Reason: Heartburn/Nausea Dextrose (Dextrose 50 % 25 Gm/50 Ml Syringe) 25 gm IVPUSH Q15M PRN; Protocol PRN Reason: per Hypoglycemia Standing Ord. Divalproex Sodium (Divalproex Sodium 500 Mg Tablet.) 1,500 mg PO 1800 [facility] Last Admin: 07/26/23 20:03 Dose: 1,500 mg Escitalopram Oxalate (Escitalopram Oxalate 10 Mg Tablet) 10 mg PO DAILY [facility] Last Admin: 07/27/23 08:29 Dose: 10 mg Glucose (Glucose Gel 15 Gm Gel..Gram.) 15 gm PO Q15M PRN; Protocol PRN Reason: per Hypoglycemia Standing Ord. Hydroxyzine HCl (Hydroxyzine Hcl 25 Mg Tablet) 25 mg PO Q6H PRN PRN Reason: Anxiety Last Admin: 07/07/23 04:32 Dose: 25 mg Hydroxyzine HCl (Hydroxyzine Hcl 50 Mg Tablet) 50 mg PO BEDTIME PRN PRN Reason: insomnia Last Admin: 07/13/23 03:37 Dose: 50 mg Insulin Glargine (Insulin Glargine,Hum.Rec.Anlog 100 Unit/Ml 10 Ml Vial) 28 unit SUBCUT DAILY [facility] Last Admin: 07/27/23 08:32 Dose: 28 unit Insulin Human Lispro (Insulin Lispro 100 Unit/Ml 3 Ml Vial) 0 unit SUBCUT QIDACHS [facility]; Protocol Last Admin: 07/27/23 12:57 Dose: 4 unit Levothyroxine Sodium (Levothyroxine Sodium 125 Mcg Tablet) 125 mcg PO DAILY@0600 [facility] Last Admin: 07/27/23 06:19 Dose: 125 mcg Lidocaine (Lidocaine 4 % Patch Adh..Patch) 1 patch TRANSDERMA DAILY [facility]; Protocol Last Admin: 07/27/23 08:32 Dose: Not Given Lisinopril (Lisinopril 10 Mg Tablet) 10 mg PO DAILY [facility]; Protocol Last Admin: 07/27/23 08:29 Dose: 10 mg [place] Carbonate ([place] Carbonate 300 Mg Tablet) 150 mg PO BID [facility] Last Admin: 07/27/23 08:29 Dose: 150 mg Loperamide HCl (Loperamide Hcl 2 Mg Capsule) 2 mg PO Q6H PRN PRN Reason: Loose Stool Loratadine (Loratadine 10 Mg Tablet) 10 mg PO DAILY PRN PRN Reason: allergy sx Magnesium Hydroxide (Milk Of Magnesia 30 Ml Oral.Susp) 30 ml PO DAILY PRN PRN Reason: Constipation Magnesium Oxide (Magnesium Oxide 400 Mg Tablet) 400 mg PO DAILY [facility] Last Admin: 07/27/23 08:29 Dose: 400 mg Multi-Ingred Cream/Lotion/Oil/Oint (Artificial Tears Ophth Oint 3.5 Gm Tube) 2 appl EYE-BOTH TID PRN; Protocol PRN Reason: Dry Eyes Last Admin: 07/11/23 11:44 Dose: 2 appl Olanzapine (Olanzapine 5 Mg Tablet) 5 mg PO BEDTIME [facility]ONIA Last Admin: 07/26/23 20:05 Dose: 5 mg Propranolol HCl (Propranolol Hcl 40 Mg Tablet) 80 mg PO TID SONIA; Protocol Last Admin: 07/27/23 14:23 Dose: 80 mg Risperidone (Risperidone 1 Mg Tablet) 1 mg PO DAILY [facility] Last Admin: 07/27/23 08:29 Dose: 1 mg Trazodone HCl (Trazodone Hcl 100 Mg Tablet) 100 mg PO BEDTIME MRX1 PRN PRN Reason: Insomnia Last Admin: 07/27/23 02:39 Dose: 100 mg Allergies Allergies Allergy/AdvReac Type Severity Reaction Status Date / Time haloperidol [From Haldol] AdvReac Unknown Verified 10/28/20 06:32 Assessment & Plan Assessment & Plan (1) Schizoaffective disorder, bipolar type: Status: Acute Code(s): F25.0 - Schizoaffective disorder, bipolar type Plan 63 yo female, hx of schizoaffective disorder, bipolar type with some sx of psychosis and arnoldo. Will check levels. TSH 6.43, Mg 1.5 and Na 133. Plan: Collateral contact EKG, Valproate, [place] levels Magnesium Oxide 400 mg daily Increase Olanzapine to 20 mg HS 07/07/23: Increase Valproate to 1500 mg daily Increase [place] to 450 mg bid TSH, BMP on 07/10. 07/08/23 continue tx plan 07/09/23 continue treatment plan 07/11/23 Increase Olanzapine to 25 mg HS. 07/13/23 continue tx 07/14/23 Continue tx 07/15: no changes. [place] level ordered for tomorrow as declined today. 07/16: lithium level 1.15, no changes made 07/18/23: Increase Risperdal to 1 mg bid 07/19/23 Decrease Risperdal to 1 mg daily 07/20/23 Continue tx 07/21/23 Continue tx 07/22/23 Continue tx 07/23/23 Hold [place] Postpone discharge 07/24 pending repeat lithium level. continue to hold lithium. 07/25 [place] 150 mg bid Decrease Olanzapine to 5 mg HS 07/26 continue tx. 07/27/23 Continue tx Reason for continued inpatient stay Substantial Risk for: stable for discharge Time Spent With Patient Time: Total time managing care of this patient today ____ minutes.
[2023-07-27 17:06] LABS: Glucose, Whole Blood 290 mg/dL (60-115)
[2023-07-27 18:00] VITALS: BP 141/62; PULSE 71; RESP 18; TEMP 36.2; O2SAT 99
[2023-07-27] MEDS: Divalproex Sodium 500 MG TABLET.DR 1500 MG PO (18:43)
[2023-07-27 20:58] LABS: Glucose, Whole Blood 311 mg/dL (60-115)
[2023-07-27] MEDS: OLANZapine 5 MG TABLET PO (21:18)
[2023-07-28] MEDS: Levothyroxine Sodium 125 MCG TABLET PO (05:21)
[2023-07-28 08:00] LABS: Glucose, Whole Blood 169 mg/dL (60-115)
[2023-07-28] MEDS: Magnesium Oxide 400 MG TABLET PO (08:14)
[2023-07-28] MEDS: risperiDONE 1 MG TABLET PO (08:15)
[2023-07-28] MEDS: Escitalopram Oxalate 10 MG TABLET PO (08:15)
[2023-07-28] MEDS: Propranolol HCL 40 MG TABLET 80 MG PO (08:15)
[2023-07-28] MEDS: lisinopriL 10 MG TABLET PO (08:15)
[2023-07-28] MEDS: Insulin Lispro 100 UNIT/ML 3 ML VIAL SUBCUT ×2 (08:16→12:36)
[2023-07-28] MEDS: Insulin Glargine,Hum.rec.anlog 100 UNIT/ML 10 ML VIAL 28 UNIT SUBCUT (08:18)
[2023-07-28] MEDS: Lithium Carbonate 300 MG TABLET 150 MG PO (08:45)
[2023-07-28 08:59] LABS: Lithium 0.51 mmol/L (0.60-1.20)
[2023-07-28 09:20] VITALS: BP 150/69; PULSE 60; RESP 16; TEMP 36.2; O2SAT 99
--- NOTE | 2023-07-28 12:10 | PM.PSYDC ---
DS: Providers Provider Date of Service: 07/28/23 Date of admission: 07/05/23 20:17 Date of discharge: 07/28/23 Primary care physician: Unknown Physician Admitting clinician: Whitney Kent Attending physician on admission: Jan Hernandez Consults: 07/05/23 20:58 Consult to Hospitalist Routine Comment: Consulting Provider: Hospitalist Reason For Exam: [facility]fe Attending physician on discharge: Jan Hernandez Discharging clinician: Whitney Kent DS: Diagnosis Discharge Diagnosis (1) Schizoaffective disorder, bipolar type: Status: Acute DS: Medications Discharge Medications Home Medications: Home Medications Medication Instructions Recorded Confirmed citalopram 10 mg tablet 10 mg PO DAILY 07/05/23 07/05/23 dulaglutide 1.5 mg/0.5 mL 1.5 mg DIRECTED 07/05/23 07/05/23 subcutaneous pen injector (Trulicity) hydroxyzine HCl 25 mg tablet 50 mg PO BEDTIME Insomnia 07/05/23 07/05/23 lisinopril 5 mg tablet 10 mg PO DAILY 07/05/23 07/05/23 loratadine 10 mg tablet 10 mg PO DAILY PRN Allergic 07/05/23 07/05/23 Reaction propranolol 80 mg tablet 80 mg PO TID 07/05/23 07/05/23 Previous Rx's Medication Instructions Recorded insulin glargine 100 unit/mL 28 unit (0.28 mL) subcut DAILY 30 12/21/20 subcutaneous solution (Lantus days #8.4 mL U-100 Insulin) insulin lispro 100 unit/mL See Protocol subcut QIDACHS 30 days 12/21/20 subcutaneous solution (Humalog U-100 Insulin) levothyroxine 125 mcg tablet 125 mcg PO DAILY@0600 30 days #30 12/21/20 tabs polyvinyl alcohol 1.4 % eye drops 2 drp ophthalmic (eye) Q4H PRN Dry 12/21/20 (Artificial Tears (polyvinyl Eyes 30 days alcohol)) divalproex 500 mg tablet,delayed 1,500 mg (3 x 500 mg) PO 1800 #0 07/26/23 release tabs hydroxyzine HCl 25 mg tablet 25 mg PO Q6H PRN Anxiety #0 tabs 07/26/23 lithium carbonate 300 mg tablet 150 mg (1/2 x 300 mg) PO BID #0 07/26/23 tabs magnesium oxide 400 mg (241.3 mg 400 mg PO DAILY #0 tabs 07/26/23 magnesium) tablet olanzapine 5 mg tablet 5 mg PO BEDTIME #0 tabs 07/26/23 risperidone 1 mg tablet 1 mg PO DAILY #0 tabs 07/26/23 trazodone 100 mg tablet 100 mg PO BEDTIME MRX1 PRN 07/26/23 Insomnia #0 tabs Mental Status Exam Mental Status Exam Patient Appearance: Appropriate Patient Orientation: Person, Place and Situation Level of Consciousness: Alert Patient Behavior: Talkative Mood Description: Withdrawn Affect Description: Flat Patient Cognition Impaired: No Ability to Follow Directions: Good Speech Pattern: Spontaneous Speech Memory Description: Remote Impaired and Episodic Impaired Data Data Completed and Pending Completed studies during hospitalization [Text1]: 07/21/23 07/21/23 07/21/23 12:12 17:10 21:10 WBC RBC Hgb Hct MCV MCH MCHC RDW Plt Count MPV Immature Gran % (Auto) Neut % (Auto) Lymph % (Auto) [place] % (Auto) Eos % (Auto) Baso % (Auto) Lymph # (Auto) [place] # (Auto) Eos # (Auto) Baso # (Auto) Abs Immat Gran (auto) Absolute Neuts (auto) Absolute Nucleated RBC Nucleated RBC % (auto) Sodium Potassium Chloride Carbon Dioxide Anion Gap BUN Creatinine Estim Creat Clear Calc Estimated GFR POC Glucose 233 H 265 H 247 H Random Glucose Calcium Total Bilirubin AST ALT Alkaline Phosphatase Total Protein Albumin TSH Valproic Acid [place] 07/22/23 07/22/23 07/22/23 08:39 12:17 17:03 WBC RBC Hgb Hct MCV MCH MCHC RDW Plt Count MPV Immature Gran % (Auto) Neut % (Auto) Lymph % (Auto) [place] % (Auto) Eos % (Auto) Baso % (Auto) Lymph # (Auto) [place] # (Auto) Eos # (Auto) Baso # (Auto) Abs Immat Gran (auto) Absolute Neuts (auto) Absolute Nucleated RBC Nucleated RBC % (auto) Sodium Potassium Chloride Carbon Dioxide Anion Gap BUN Creatinine Estim Creat Clear Calc Estimated GFR POC Glucose 170 H 239 H 246 H Random Glucose Calcium Total Bilirubin AST ALT Alkaline Phosphatase Total Protein Albumin TSH Valproic Acid [place] 07/22/23 07/23/23 07/23/23 20:00 07:14 07:14 WBC 5.3 RBC 4.58 Hgb 13.5 Hct 41.0 MCV 89.5 MCH 29.5 MCHC 32.9 RDW 13.9 Plt Count 175 MPV 9.8 Immature Gran % (Auto) 0.2 Neut % (Auto) 52.2 Lymph % (Auto) 36.3 [place] % (Auto) 8.0 Eos % (Auto) 2.9 Baso % (Auto) 0.4 Lymph # (Auto) 1.9 [place] # (Auto) 0.4 Eos # (Auto) 0.2 Baso # (Auto) 0.0 Abs Immat Gran (auto) 0.01 Absolute Neuts (auto) 2.8 Absolute Nucleated RBC 0.000 Nucleated RBC % (auto) 0.0 Sodium 141 Potassium 3.9 Chloride 103 Carbon Dioxide 32 H Anion Gap 10 L BUN 10 Creatinine 0.78 Estim Creat Clear Calc 80.2 Estimated GFR > 60 POC Glucose 186 H Random Glucose 140 H Calcium 9.5 Total Bilirubin 0.5 AST 12 ALT 13 Alkaline Phosphatase 64 Total Protein 6.6 Albumin 3.7 TSH 4.46 H Cancelled Valproic Acid 84.6 [place] 1.51 H* 07/23/23 07/23/23 07/23/23 08:38 12:12 17:20 WBC RBC Hgb Hct MCV MCH MCHC RDW Plt Count MPV Immature Gran % (Auto) Neut % (Auto) Lymph % (Auto) [place] % (Auto) Eos % (Auto) Baso % (Auto) Lymph # (Auto) [place] # (Auto) Eos # (Auto) Baso # (Auto) Abs Immat Gran (auto) Absolute Neuts (auto) Absolute Nucleated RBC Nucleated RBC % (auto) Sodium Potassium Chloride Carbon Dioxide Anion Gap BUN Creatinine Estim Creat Clear Calc Estimated GFR POC Glucose 150 H 261 H 173 H Random Glucose Calcium Total Bilirubin AST ALT Alkaline Phosphatase Total Protein Albumin TSH Valproic Acid [place] 07/23/23 07/24/23 07/24/23 20:13 08:51 12:29 WBC RBC Hgb Hct MCV MCH MCHC RDW Plt Count MPV Immature Gran % (Auto) Neut % (Auto) Lymph % (Auto) [place] % (Auto) Eos % (Auto) Baso % (Auto) Lymph # (Auto) [place] # (Auto) Eos # (Auto) Baso # (Auto) Abs Immat Gran (auto) Absolute Neuts (auto) Absolute Nucleated RBC Nucleated RBC % (auto) Sodium Potassium Chloride Carbon Dioxide Anion Gap BUN Creatinine Estim Creat Clear Calc Estimated GFR POC Glucose 264 H 140 H 184 H Random Glucose Calcium Total Bilirubin AST ALT Alkaline Phosphatase Total Protein Albumin TSH Valproic Acid [place] 07/24/23 07/24/23 07/25/23 17:18 20:44 07:29 WBC RBC Hgb Hct MCV MCH MCHC RDW Plt Count MPV Immature Gran % (Auto) Neut % (Auto) Lymph % (Auto) [place] % (Auto) Eos % (Auto) Baso % (Auto) Lymph # (Auto) [place] # (Auto) Eos # (Auto) Baso # (Auto) Abs Immat Gran (auto) Absolute Neuts (auto) Absolute Nucleated RBC Nucleated RBC % (auto) Sodium 142 Potassium 4.2 Chloride 104 Carbon Dioxide 32 H Anion Gap 10 L BUN 11 Creatinine 0.74 Estim Creat Clear Calc 84.5 Estimated GFR > 60 POC Glucose 267 H 371 H* Random Glucose 102 Calcium 9.3 Total Bilirubin AST ALT Alkaline Phosphatase Total Protein Albumin TSH Valproic Acid [place] 0.83 07/25/23 07/25/23 07/25/23 08:23 12:32 17:17 WBC RBC Hgb Hct MCV MCH MCHC RDW Plt Count MPV Immature Gran % (Auto) Neut % (Auto) Lymph % (Auto) [place] % (Auto) Eos % (Auto) Baso % (Auto) Lymph # (Auto) [place] # (Auto) Eos # (Auto) Baso # (Auto) Abs Immat Gran (auto) Absolute Neuts (auto) Absolute Nucleated RBC Nucleated RBC % (auto) Sodium Potassium Chloride Carbon Dioxide Anion Gap BUN Creatinine Estim Creat Clear Calc Estimated GFR POC Glucose 107 205 H 223 H Random Glucose Calcium Total Bilirubin AST ALT Alkaline Phosphatase Total Protein Albumin TSH Valproic Acid [place] 07/25/23 07/26/23 07/26/23 21:49 08:00 12:24 WBC RBC Hgb Hct MCV MCH MCHC RDW Plt Count MPV Immature Gran % (Auto) Neut % (Auto) Lymph % (Auto) [place] % (Auto) Eos % (Auto) Baso % (Auto) Lymph # (Auto) [place] # (Auto) Eos # (Auto) Baso # (Auto) Abs Immat Gran (auto) Absolute Neuts (auto) Absolute Nucleated RBC Nucleated RBC % (auto) Sodium Potassium Chloride Carbon Dioxide Anion Gap BUN Creatinine Estim Creat Clear Calc Estimated GFR POC Glucose 252 H 158 H 180 H Random Glucose Calcium Total Bilirubin AST ALT Alkaline Phosphatase Total Protein Albumin TSH Valproic Acid [place] 07/26/23 07/26/23 07/27/23 17:25 19:40 07:44 WBC RBC Hgb Hct MCV MCH MCHC RDW Plt Count MPV Immature Gran % (Auto) Neut % (Auto) Lymph % (Auto) [place] % (Auto) Eos % (Auto) Baso % (Auto) Lymph # (Auto) [place] # (Auto) Eos # (Auto) Baso # (Auto) Abs Immat Gran (auto) Absolute Neuts (auto) Absolute Nucleated RBC Nucleated RBC % (auto) Sodium Potassium Chloride Carbon Dioxide Anion Gap BUN Creatinine Estim Creat Clear Calc Estimated GFR POC Glucose 290 H 338 H 182 H Random Glucose Calcium Total Bilirubin AST ALT Alkaline Phosphatase Total Protein Albumin TSH Valproic Acid [place] 07/27/23 07/27/23 07/27/23 12:50 17:02 20:53 WBC RBC Hgb Hct MCV MCH MCHC RDW Plt Count MPV Immature Gran % (Auto) Neut % (Auto) Lymph % (Auto) [place] % (Auto) Eos % (Auto) Baso % (Auto) Lymph # (Auto) [place] # (Auto) Eos # (Auto) Baso # (Auto) Abs Immat Gran (auto) Absolute Neuts (auto) Absolute Nucleated RBC Nucleated RBC % (auto) Sodium Potassium Chloride Carbon Dioxide Anion Gap BUN Creatinine Estim Creat Clear Calc Estimated GFR POC Glucose 215 H 290 H 311 H Random Glucose Calcium Total Bilirubin AST ALT Alkaline Phosphatase Total Protein Albumin TSH Valproic Acid [place] 07/28/23 07/28/23 07:52 08:33 WBC RBC Hgb Hct MCV MCH MCHC RDW Plt Count MPV Immature Gran % (Auto) Neut % (Auto) Lymph % (Auto) [place] % (Auto) Eos % (Auto) Baso % (Auto) Lymph # (Auto) [place] # (Auto) Eos # (Auto) Baso # (Auto) Abs Immat Gran (auto) Absolute Neuts (auto) Absolute Nucleated RBC Nucleated RBC % (auto) Sodium Potassium Chloride Carbon Dioxide Anion Gap BUN Creatinine Estim Creat Clear Calc Estimated GFR POC Glucose 169 H Random Glucose Calcium Total Bilirubin AST ALT Alkaline Phosphatase Total Protein Albumin TSH Valproic Acid [place] 0.51 L DS: Summary Hospital Course Hospital Course: Admission to adult psychiatry from residential due to lability of mood, agitation, behavioral dysregulation, conflicts with peers and changes in baseline presentation. Medications were evaluated and adjusted. Milieu treatment was made available for pt to utilize for support. Medication levels were stabilized and pt was able to return to her facility with stable mood and behavioral presentation. Status at Discharge Functional status at discharge: independent ambulation Overall status at discharge: patient is back to baseline Time Spent with Patient Time attestation: Total time managing care of this patient today ____ minutes. Time spent: Less than 30 minutes Discharge Plan Discharge Anticipated Discharge Date/Time: 07/28/23 12:00 Patient Disposition: er [facility] Discharge Diagnosis: Schizoaffective Disorder, Bipolar Type Referrals: Physician,Unknown J [Primary Care Provider] - 1 Week (Staff will arrange. ) Discharge Medications: New olanzapine 5 mg Tablet 5 mg PO BEDTIME Qty: 0 0RF divalproex 500 mg Tablet,Delayed Release (Dr/Ec) 1,500 mg PO 1800 Qty: 0 0RF trazodone 100 mg Tablet 100 mg PO BEDTIME MRX1 PRN (Reason: Insomnia) Qty: 0 0RF hydroxyzine HCl 25 mg Tablet 25 mg PO Q6H PRN (Reason: Anxiety) Qty: 0 0RF lithium carbonate 300 mg Tablet 150 mg PO BID Qty: 0 0RF risperidone 1 mg Tablet 1 mg PO DAILY Qty: 0 0RF magnesium oxide 400 mg (241.3 mg magnesium) Tablet 400 mg PO DAILY Qty: 0 0RF Continued polyvinyl alcohol [Artificial Tears (polyvin alc)] 1.4 % Drops 2 drp ophthalmic (eye) Q4H PRN (Reason: Dry Eyes) 30 Days 0RF levothyroxine 125 mcg Tablet 125 mcg PO DAILY@0600 30 Days Qty: 30 0RF insulin lispro [Humalog U-100 Insulin] 100 unit/mL Solution See Protocol subcut QIDACHS 30 Days 0RF Protocol: Insulin Correction Scale Less than or equal to 110 ---- Give (units): 0 111 to 150 Give (units): 0 151 to 200 Give (units): 2 201 to 250 Give (units): 4 251 to 300 Give (units): 6 301 to 350 Give (units): 8 Greater than 350 Give (units): 10 Call MD if Blood Glucose > : 350 insulin glargine [Lantus U-100 Insulin] 100 unit/mL solution 28 unit subcut DAILY 30 Days Qty: 8.4 0RF Trulicity 1.5 mg/0.5 mL Pen Injector 1.5 mg DIRECTED Rx Instructions: trulicity 1.5mg/0.5ml in the morning every citalopram 10 mg Tablet 10 mg PO DAILY propranolol 80 mg Tablet 80 mg PO TID lisinopril 5 mg Tablet 10 mg PO DAILY loratadine 10 mg Tablet 10 mg PO DAILY PRN (Reason: Allergic Reaction) hydroxyzine HCl 25 mg tablet 50 mg PO BEDTIME Discontinued olanzapine 10 mg Tablet 10 mg PO BEDTIME 30 Days Qty: 30 0RF risperidone 2 mg tablet 0.5 mg PO DAILY lithium carbonate 300 mg tablet 300 mg PO BID divalproex 250 mg tablet extended release 24 hr 1,250 mg PO DIRECTED Rx Instructions: Depakote 500mg 2 tabs one time a day. take with 250mg po at HS Discharge Orders: Discharge Order (Routine); Ordered 07/28/23 Ordered By: Whitney Kent Diet: Diabetic diet Activity on Discharge: As tolerated Stand Alone Forms: Patient Portal Discharge page, Community Support Care Plan Goals: Mood and Behavioral Stabilization Health Concerns: Mood and Behavioral Stabilization Plan of Treatment: Attend scheduled appointments Take medications as directed Suggest labs monthly- [place], Depakote, Complete Blood Count, Comprehensive Metabolic Panel. Call and/or return as needed Priority Intervention: Pt will need ongoing follow up by psychiatry for management of psychopharmacology needs. Assessment: Scheduled discharge. Discharge Date/Time: 07/28/23 13:02
[2023-07-28 12:36] LABS: Glucose, Whole Blood 332 mg/dL (60-115)
== END 2023-07-28 13:02 | DRG 885 ==
PROVIDERS: Psychiatry & Neurology Psychiatry; Admitting Provider Psychiatry & Neurology Psychiatry; Visit Provider Clinical Nurse Specialist Psychiatric/Mental Health, Adult
DX: F25.0 Schizoaffective disorder, bipolar type (principal); I10 Essential (primary) hypertension; E78.5 Hyperlipidemia, unspecified; E03.9 Hypothyroidism, unspecified; E13.9 Other specified diabetes mellitus without complications; Z79.4 Long term (current) use of insulin; Z79.84 Long term (current) use of oral hypoglycemic drugs; Z79.890 Hormone replacement therapy; Z79.899 Other long term (current) drug therapy
CPT/HCPCS: 36415; 80048; 80053; 80061; 80164; 80178; 82607; 82746; 82947; 83036; 83735; 84439; 84443; 85025; 93005

== ENCOUNTER 2023-07-05 20:17 | Outpatient (BNV) | payer MEDICARE, MEDICAID, SELFPAY | END 2023-07-07 18:34 | PROVIDERS: Admitting Provider Psychiatry & Neurology Psychiatry; Visit Provider Internal Medicine Cardiovascular Disease | DX: R94.31 Abnormal electrocardiogram [ECG] [EKG] (principal) | CPT/HCPCS: 93010 ==

== ENCOUNTER → 2023-07-05 20:17 | Outpatient (BNV) | payer MEDICARE, MEDICAID, SELFPAY | PROVIDERS: Admitting Provider Psychiatry & Neurology Psychiatry; Visit Provider Student in an Organized Health Care Education/Training Program | DX: Z02.2 Encounter for examination for admission to residential institution (principal) | CPT/HCPCS: 99429 ==

== ENCOUNTER → 2023-07-05 20:17 | Outpatient (BNV) | payer MEDICARE, MEDICAID, SELFPAY | PROVIDERS: Admitting Provider Psychiatry & Neurology Psychiatry; Visit Provider Clinical Nurse Specialist Psychiatric/Mental Health, Adult | DX: F25.0 Schizoaffective disorder, bipolar type (principal) | CPT/HCPCS: 90792; 99231; 99232; 99238 ==

== ENCOUNTER 2023-11-14 18:48 | Inpatient (IN) | payer MEDICARE, MEDICAID, SELFPAY ==
[2023-11-14 19:00] VITALS: BP 132/78; PULSE 114; RESP 16; TEMP 36.3; O2SAT 97
[2023-11-14 19:28] VITALS: BMI 40.2
[2023-11-14 20:00] VITALS: BP 122/80; PULSE 113; RESP 16; TEMP 36.4; O2SAT 95
[2023-11-14 20:30] LABS: Glucose, Whole Blood 322 mg/dL (60-115)
[2023-11-14] MEDS: traZODone HCL 50 MG TABLET PO (20:57)
[2023-11-14] MEDS: hydrOXYzine HCL 50 MG TABLET PO (20:57)
[2023-11-14] MEDS: OLANZapine 5 MG TABLET PO (20:57)
[2023-11-14] MEDS: Insulin Lispro 100 UNIT/ML 3 ML VIAL SUBCUT (20:58)
[2023-11-14] MEDS: Lithium Carbonate 300 MG TABLET 150 MG PO (22:28)
[2023-11-14 22:29] VITALS: BP 134/62; PULSE 95
[2023-11-14] MEDS: Propranolol HCL 40 MG TABLET 80 MG PO (22:29)
--- NOTE | 2023-11-15 01:33 | PC.ADMIT ---
was admitted to M3 from [facility] 1857. legal:12b. DX: unspecified schizophrenia spectrum and other psychotic disorder. patient was unable to participate in admission assessment as she is a poor historian. she is nonsensical-referring to t/w as ''her Mother'' and appears to be confused, she is actively responding to IS. unable to follow questions. affect is bright and smiling. no agitation or restlessness noted but is loud, singing. patient spilling water from her water pitcher on herself, her bed, her floor and laughing loudly. information obtained from crisis assessment. lives at [facility]. has a guardian-Shashi Tran [phone]. has PCP Abhijeet Smith [phone]. no return call from [facility] at this time [phone]. medical HX IDDM, HTN, hyperlipidemia, seasonal allergies. verification of medications done from previous hospitalization records as well as medical assessment from [facility]. skin check was completed upon arrival to unit. no concerns with drug or alcohol issues. is a non smoker. placed on 5 minute checks due to impulsive behaviors.
[2023-11-15] MEDS: hydrOXYzine HCL 25 MG TABLET PO (04:57)
[2023-11-15] MEDS: OLANZapine 5 MG TABLET PO (04:57)
[2023-11-15] MEDS: Levothyroxine Sodium 125 MCG TABLET PO (05:47)
[2023-11-15 07:45] VITALS: BP 125/74; PULSE 86; RESP 16; TEMP 36.1; O2SAT 95
[2023-11-15 08:28] LABS: Glucose, Whole Blood 520 mg/dL (60-115)
[2023-11-15] MEDS: Insulin Glargine,Hum.rec.anlog 100 UNIT/ML 10 ML VIAL 28 UNIT SUBCUT (09:05)
[2023-11-15] MEDS: Insulin Lispro 100 UNIT/ML 3 ML VIAL SUBCUT ×3 (09:06→17:47)
[2023-11-15] MEDS: risperiDONE 1 MG TABLET PO (09:06)
[2023-11-15] MEDS: Lithium Carbonate 300 MG TABLET 150 MG PO (09:06)
[2023-11-15 09:07] VITALS: BP 125/74; PULSE 86
[2023-11-15] MEDS: lisinopriL 10 MG TABLET PO (09:07)
[2023-11-15] MEDS: Propranolol HCL 40 MG TABLET 80 MG PO ×2 (09:07→15:36)
[2023-11-15] MEDS: Magnesium Oxide 400 MG TABLET PO (09:07)
[2023-11-15 09:11] LABS: Lithium 0.43 mmol/L (0.60-1.20)
[2023-11-15 09:15] LABS: Valproate 19.3 mcg/mL (50.0-100.0)
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
[2023-11-15 09:26] LABS: Alanine Aminotransferase 23 U/L (0-31); Alkaline Phosphatase 66 U/L (39-117); Anion Gap 13 (12-20); Aspartate Amino Transferase 15 U/L (5-31); Bilirubin Total 0.7 mg/dL (0.0-1.0); Blood Urea Nitrogen 25 mg/dL (9-16); Carbon Dioxide 23 mmol/L (22-29); Chloride 99 mmol/L (96-108); Cholesterol 106 mg/dL (<200); Creatinine Clr Calc Pharmacy 60.1; Estimated Glomerular Filt Rate 57; Glucose Fasting 556 mg/dL (60-99); HDL Cholesterol 34 mg/dL (>40); LDL Cholesterol Calculated 49 mg/dL (<100); Potassium 4.8 mmol/L (3.3-5.1); Sodium 130 mmol/L (135-145); Total Protein 6.7 g/dL (6.5-8.0); Triglycerides 118 mg/dL (<150)
--- NOTE | 2023-11-15 10:33 | P.CONHOSP_ITS ---
History of Present Illness Data of Consult Service Date: 11/15/23 Requesting physician: Jan Hernandez Primary Care Provider: Abhijeet Smith MD HPI Reason for consult: medical H&P 63-year-old female with history of insulin-dependent type 2 diabetes, hyperlipidemia, hypertension, hypothyroidism admitted to adult Psychiatry from [facility] ED with consult placed hospitalist service for medical H&P. Patient seen and examined with the assistance of veneer stock layer. She is quite manic and is a limited historian. She has been noted to be very noncompliant with diabetic snacking since on the unit. Random glucose this morning was 550 on lab draw. While in the ED, glucose level seemed reasonably controlled in the 100s. I have called [facility] and the patient is supposed to be getting 20 units of Lantus at night and 40 units of Lantus every morning in addition to her sliding scale insulin. While at [facility], hematology studies were unremarkable. Renal function was normal, electrolyte levels normal. Glucose 146. U tox was negative. Ammonia level was 40. TSH was elevated at 14.9 but free T4 was normal at 1.6. Urinalysis unremarkable. EKG shows sinus tachycardia, rate [address]/T-wave abnormality. Review of Systems 2 Review of Systems: Yes Unobtainable due to mental status (has no complaints but question reliability of history given arnoldo) [facility] Medical History Schizoaffective disorder, bipolar type Hypothyroid GERD (gastroesophageal reflux disease) Hyperlipemia HTN (hypertension) Diabetes 1.5, managed as type 2 Social History Household Members: Other Housing: [facility] Do you presently have visiting nurse or other home services: No (in correction) Patient Tobacco Use Status: Never used Tobacco Smoked in Last 30 Days: No e-Cigarette/Vaping Use: Never Used Second Hand Smoke Exposure: No Use of substances other than those prescribed or required for medical reasons: No Currently Displaying Signs/Symptoms of Drug Intoxication Withdrawal: No Have you been hit, kicked, punched, or otherwise hurt by someone within the past year? If so, by whom?: No (no indication of in crisis assessment) Do you feel safe in your current relationship?: No Current Relationship Is there a partner from a previous relationship who is making you feel unsafe now?: No (no indication in crisis assessment) Are you made to feel afraid or neglected: No (no indication in crisis assessment) Spiritual Healthcare Practices: unknoiwn [facility] Healthcare Practices: unknown Cultural Healthcare Practices: unknown Advance Directives: No Advance Directives Information Provided: No Do you have thoughts of harming others: None Do you have a plan to hurt others: No Plan Recently lost weight without trying: Unsure How much weight loss: Unsure Eating poorly because of decreased appetite: No Nutrition screen score: 4 Nutrition Risks: Dental problems Patient : No : No Poor oral hygiene: Yes service: No Sexual orientation: Did not discuss Meds Allergies Allergy/AdvReac Type Severity Reaction Status Date / Time haloperidol [From Haldol] AdvReac Unknown Verified 10/28/20 06:32 Active Medications: Current Medications Acetaminophen (Acetaminophen 325 Mg Tablet) 650 mg PO Q6H PRN PRN Reason: Headache/Pain Mild Scale (1-3) Al Hydroxide/Mg Hydroxide (Magnesium Hydrox/Alum Hydrox 30 Ml Oral.Susp) 30 ml PO Q6H PRN PRN Reason: Heartburn/Nausea Divalproex Sodium (Divalproex Sodium 500 Mg Tablet.Dr) 1,500 mg PO DAILY@1800 SONIA Glucose (Glucose Gel 15 Gm Gel..Gram.) 15 gm PO Q15M PRN; Protocol PRN Reason: per Hypoglycemia Standing Ord. Hydroxyzine HCl (Hydroxyzine Hcl 25 Mg Tablet) 25 mg PO Q6H PRN PRN Reason: Anxiety Last Admin: 11/15/23 04:57 Dose: 25 mg Hydroxyzine HCl (Hydroxyzine Hcl 50 Mg Tablet) 50 mg PO BEDTIME [facility] Last Admin: 11/14/23 20:57 Dose: 50 mg Insulin Glargine (Insulin Glargine,Hum.Rec.Anlog 100 Unit/Ml 10 Ml Vial) 28 unit SUBCUT DAILY [facility] Last Admin: 11/15/23 09:05 Dose: 28 unit Insulin Human Lispro (Insulin Lispro 100 Unit/Ml 3 Ml Vial) 0 unit SUBCUT QIDACHS [facility]; Protocol Last Admin: 11/15/23 09:06 Dose: 20 unit Insulin Human Lispro (Insulin Lispro 100 Unit/Ml 3 Ml Vial) 10 unit SUBCUT QIDACHS [facility] Levothyroxine Sodium (Levothyroxine Sodium 125 Mcg Tablet) 125 mcg PO DAILY@0600 [facility] Last Admin: 11/15/23 05:47 Dose: 125 mcg Lisinopril (Lisinopril 10 Mg Tablet) 10 mg PO DAILY [facility]; Protocol Last Admin: 11/15/23 09:07 Dose: 10 mg [place] Carbonate ([place] Carbonate 300 Mg Tablet) 150 mg PO BID [facility] Last Admin: 11/15/23 09:06 Dose: 150 mg Loratadine (Loratadine 10 Mg Tablet) 10 mg PO DAILY PRN PRN Reason: Allergic Reaction Magnesium Hydroxide (Milk Of Magnesia 30 Ml Oral.Susp) 30 ml PO DAILY PRN PRN Reason: Constipation Magnesium Oxide (Magnesium Oxide 400 Mg Tablet) 400 mg PO DAILY [facility] Last Admin: 11/15/23 09:07 Dose: 400 mg Olanzapine (Olanzapine 5 Mg Tablet) 5 mg PO BEDTIME [facility] Last Admin: 11/14/23 20:57 Dose: 5 mg Olanzapine (Olanzapine 5 Mg Tablet) 5 mg PO Q4H PRN PRN Reason: Psychosis Last Admin: 11/15/23 04:57 Dose: 5 mg Propranolol HCl (Propranolol Hcl 40 Mg Tablet) 80 mg PO TID [facility]; Protocol Last Admin: 11/15/23 09:07 Dose: 80 mg Risperidone (Risperidone 1 Mg Tablet) 1 mg PO DAILY [facility] Last Admin: 11/15/23 09:06 Dose: 1 mg Trazodone HCl (Trazodone Hcl 50 Mg Tablet) 50 mg PO BEDTIME MRX1 PRN PRN Reason: Insomnia Last Admin: 11/14/23 20:57 Dose: 50 mg Home Medications ?Medication ?Instructions ?Recorded ?Confirmed ?Last Taken ?Type citalopram 10 mg tablet 10 mg PO DAILY 07/05/23 11/14/23 Unknown History dulaglutide 1.5 mg/0.5 mL 1.5 mg DIRECTED 07/05/23 11/14/23 Unknown History subcutaneous pen injector (Trulicity) hydroxyzine HCl 25 mg tablet 50 mg PO BEDTIME Insomnia 07/05/23 11/14/23 Unknown History lisinopril 5 mg tablet 10 mg PO DAILY 07/05/23 11/14/23 Unknown History loratadine 10 mg tablet 10 mg PO DAILY PRN Allergic 07/05/23 11/14/23 Unknown History Reaction propranolol 80 mg tablet 80 mg PO TID 07/05/23 11/14/23 Unknown History Dulcolax (bisacodyl) 10 mg RI NEEDED PRN Constipation 11/14/23 11/14/23 Unknown History divalproex 500 mg tablet,delayed 1,500 mg PO DAILY@1800 11/14/23 11/14/23 Unknown History release Physical Exam 2 Vital Signs and Narrative: Vital Signs: Last Vital Signs Temp 96.9 F 11/15/23 07:45 Pulse 86 11/15/23 09:07 Resp 16 11/15/23 07:45 BP 125/74 11/15/23 09:07 Pulse Ox 95 11/15/23 07:45 O2 Del Method Room Air 11/15/23 07:45 BMI result Body Mass Index 40.2 Constitutional - Awake and Alert, No apparent distress Eyes - PERRLA, EOMI Cardiovascular - S1S2, RRR, No edema Respiratory - Normal lung expansion, Normal respiratory effort, No respiratory distress, CTA bilaterally Gastrointestinal - NT / ND; +BS; No rebound or guarding Extremities - no calf tenderness bilaterally, no swelling Musculoskeletal - Normal inspection, normal ROM Skin - Warm/Dry Neurological - Alert & oriented x3, CN II-XII in tact, 5/5 strength BUE and BLE Psychological - hyperverbal, poor insight Results Labs 11/15/23 08:10 Labs: Laboratory Results - last 24 hr 11/14/23 11/15/23 11/15/23 20:25 08:10 08:20 Anion Gap 13 Estim Creat Clear Calc 60.1 Estimated GFR 57 POC Glucose 322 H 520 H* Fasting Glucose 556 H* Calcium 9.0 Total Bilirubin 0.7 AST 15 ALT 23 Alkaline Phosphatase 66 Total Protein 6.7 Albumin 4.0 Triglycerides 118 Cholesterol 106 LDL Cholesterol, Calc 49 HDL Cholesterol 34 L Valproic Acid 19.3 L [place] 0.43 L Assessment and Plan (1) Routine medical exam: Status: Acute Plan 63-year-old female with history of insulin-dependent type 2 diabetes, hyperlipidemia, hypertension, hypothyroidism admitted to adult Psychiatry from [facility] ED with consult placed hospitalist service for medical H&P. #Mood disorder/arnoldo -plan per psychiatry # insulin-dependent type 2 diabetes with hyperglycemia and diet noncompliance -hemoglobin A1c pending -random glucose is morning 550. Glucose levels did appear controlled in the ED at 146 -Lantus doses adjusted. She is taking Lantus 20 units at bedtime and 40 units in the morning -continue Admelog on sliding scale in addition to 10 units standing Admelog -patient educated on diabetic snacking, but she is quite manic. Would recommend reinforcement of diabetic diet and snacking -hold Trulicity unless can be brought in from home # hypertension -continue lisinopril 10 mg daily. Per [facility] records, patient should be taking 20 mg daily. However, blood pressures do appear to be reasonably controlled. However, if blood pressure is do become elevated, recommend increasing lisinopril to 20 mg daily # hyperlipidemia -continue statin # hypothyroidism -TSH elevated but free T4 normal at 1.6 -continue levothyroxine 125 mcg daily Patient is unreliable historian, however there does not appear to be any acute medical issues at this time. [facility] records reviewed. Call also placed to [facility] to validate medication list. Thank you for allowing me to participate in this consult. Signing off at this time. Please do not hesitate to call for further questions or for any acute medical issues that should arise.
[2023-11-15] MEDS: Insulin Glargine,Hum.rec.anlog 100 UNIT/ML 10 ML VIAL 12 UNIT SUBCUT (11:53)
[2023-11-15 12:21] LABS: Glucose, Whole Blood 344 mg/dL (60-115)
[2023-11-15] MEDS: Insulin Lispro 100 UNIT/ML 3 ML VIAL 10 UNIT SUBCUT ×2 (13:06→17:46)
[2023-11-15 15:36] VITALS: BP 138/62; PULSE 83
--- NOTE | 2023-11-15 17:42 | PC.NURSE ---
Pt was found in the sensory room defecating amnd urinating in a trash can. Pt appeared confused and disoriented, pt also wandered in another pt's room and sat on their bed. Pt placed on 1:1 for safety.
[2023-11-15 17:43] LABS: Glucose, Whole Blood 318 mg/dL (60-115)
[2023-11-15] MEDS: Divalproex Sodium 500 MG TABLET.DR 1500 MG PO (17:46)
[2023-11-15 20:30] VITALS: BP 158/74; PULSE 78; RESP 16; TEMP 36.2; O2SAT 96
--- NOTE | 2023-11-15 21:18 | PC.NURSE ---
Nurse attempted to get blood sugar at 2009, patient refused. Nurse asked [facility] to try and she refused again. Nurse attempted to give patient oral medications and patient refused.
--- NOTE | 2023-11-15 21:31 | PC.NURSE ---
Kae appears to have urinated on the floor in the Ante room. Patient refused to change Jacky that was slightly wet from the urination.
[2023-11-16] MEDS: Levothyroxine Sodium 125 MCG TABLET PO (08:13)
[2023-11-16 08:34] LABS: Estimated Average Glucose 217 mg/dL; Hemoglobin A1C 251.4419 umol/L; Hemoglobin A1c % 9.2 % (<6.0); Total Hemoglobin (HGBA1C) 3264.4025 umol/L
[2023-11-16 08:36] LABS: Glucose, Whole Blood 96 mg/dL (60-115)
[2023-11-16 08:55] VITALS: BP 132/63
[2023-11-16] MEDS: lisinopriL 10 MG TABLET PO (08:55)
[2023-11-16] MEDS: Insulin Glargine,Hum.rec.anlog 100 UNIT/ML 10 ML VIAL 40 UNIT SUBCUT (08:55)
[2023-11-16 08:56] VITALS: BP 132/63; PULSE 72
[2023-11-16] MEDS: risperiDONE 1 MG TABLET PO (08:56)
[2023-11-16] MEDS: Propranolol HCL 40 MG TABLET 80 MG PO ×3 (08:56→21:30)
[2023-11-16] MEDS: Magnesium Oxide 400 MG TABLET PO (08:56)
[2023-11-16] MEDS: Lithium Carbonate 300 MG TABLET 150 MG PO ×2 (08:56→21:30)
[2023-11-16 09:25] VITALS: BP 132/63; PULSE 72; RESP 18; TEMP 36.3; O2SAT 96
--- NOTE | 2023-11-16 11:43 | HO.PSYCHPN ---
Subjective Subjective Date of Service: 11/16/23 Reason For Visit: Psychosis Subjective Notes: Section 12B Interim History: Patient on one-to-one was somewhat intrusive last evening and defecated in a garbage pail seemingly confused or impulsive. Has shown improved behavior today more organized focused on not returning to place in [place] not combative disorganized Medication Compliance: Yes Review of Systems Elevated blood sugar Mental Status Exam Mental Status Exam Narrative: Patient seen casually dressed superficially expansive not combative or threatening. Somewhat bizarre affect at times poorly informational knows that she was living in [place] can not give details knows that she does not want to return denies thoughts of harm to self or others thoughts disorganized somewhat bizarre preoccupations nonsensical was not endorsed endorsing thoughts of self-harm or hallucinations judgment poor insight limited she did understand that she had a psychiatric illness bipolar and appeared to be able to accept need for treatment in the hospital on a superficial level Diagnostics Vital Signs (24Hr): Vital Signs - 24 hr 11/15/23 15:36 11/15/23 20:30 11/16/23 08:55 Temperature 97.1 F Pulse Rate 83 78 Respiratory Rate 16 Blood Pressure 138/62 158/74 H 132/63 Pulse Oximetry 96 Oxygen Delivery Method Room Air 11/16/23 08:56 11/16/23 09:25 Temperature 97.3 F Pulse Rate 72 72 Respiratory Rate 18 Blood Pressure 132/63 132/63 Pulse Oximetry 96 Oxygen Delivery Method Room Air BMI result Body Mass Index 40.2 Labs 11/16/23 16:26 Labs: Laboratory Results - last 48 hr 11/14/23 11/15/23 11/15/23 20:25 08:10 08:20 Sodium 130 L Potassium 4.8 Chloride 99 Carbon Dioxide 23 Anion Gap 13 BUN 25 H Creatinine 0.99 Estim Creat Clear Calc 60.1 Estimated GFR 57 POC Glucose 322 H 520 H* Fasting Glucose 556 H* Estimat Average Glucose Hemoglobin A1c % Calcium 9.0 Total Bilirubin 0.7 AST 15 ALT 23 Alkaline Phosphatase 66 Total Protein 6.7 Albumin 4.0 Triglycerides 118 Cholesterol 106 LDL Cholesterol, Calc 49 HDL Cholesterol 34 L Valproic Acid 19.3 L [place] 0.43 L 11/15/23 11/15/23 11/16/23 12:17 17:38 08:01 Sodium Potassium Chloride Carbon Dioxide Anion Gap BUN Creatinine Estim Creat Clear Calc Estimated GFR POC Glucose 344 H 318 H Fasting Glucose Estimat Average Glucose 217 Hemoglobin A1c % 9.2 H Calcium Total Bilirubin AST ALT Alkaline Phosphatase Total Protein Albumin Triglycerides Cholesterol LDL Cholesterol, Calc HDL Cholesterol Valproic Acid [place] 11/16/23 08:31 Sodium Potassium Chloride Carbon Dioxide Anion Gap BUN Creatinine Estim Creat Clear Calc Estimated GFR POC Glucose 96 Fasting Glucose Estimat Average Glucose Hemoglobin A1c % Calcium Total Bilirubin AST ALT Alkaline Phosphatase Total Protein Albumin Triglycerides Cholesterol LDL Cholesterol, Calc HDL Cholesterol Valproic Acid [place] Medications Medications Current Medications Acetaminophen (Acetaminophen 325 Mg Tablet) 650 mg PO Q6H PRN PRN Reason: Headache/Pain Mild Scale (1-3) Al Hydroxide/Mg Hydroxide (Magnesium Hydrox/Alum Hydrox 30 Ml Oral.Susp) 30 ml PO Q6H PRN PRN Reason: Heartburn/Nausea Divalproex Sodium (Divalproex Sodium 500 Mg Tablet.Dr) 1,500 mg PO DAILY@1800 [facility] OF [facility] Last Admin: 11/15/23 17:46 Dose: 1,500 mg Glucose (Glucose Gel 15 Gm Gel..Gram.) 15 gm PO Q15M PRN; Protocol PRN Reason: per Hypoglycemia Standing Ord. Hydroxyzine HCl (Hydroxyzine Hcl 25 Mg Tablet) 25 mg PO Q6H PRN PRN Reason: Anxiety Last Admin: 11/15/23 04:57 Dose: 25 mg Hydroxyzine HCl (Hydroxyzine Hcl 50 Mg Tablet) 50 mg PO BEDTIME [facility] Last Admin: 11/15/23 21:13 Dose: Not Given Insulin Glargine (Insulin Glargine,Hum.Rec.Anlog 100 Unit/Ml 10 Ml Vial) 40 unit SUBCUT DAILY [facility] Last Admin: 11/16/23 08:55 Dose: 40 unit Insulin Glargine (Insulin Glargine,Hum.Rec.Anlog 100 Unit/Ml 10 Ml Vial) 20 unit SUBCUT BEDTIME [facility] Last Admin: 11/15/23 21:14 Dose: Not Given Insulin Human Lispro (Insulin Lispro 100 Unit/Ml 3 Ml Vial) 0 unit SUBCUT QIDACHS ON [facility]; Protocol Last Admin: 11/16/23 08:45 Dose: Not Given Insulin Human Lispro (Insulin Lispro 100 Unit/Ml 3 Ml Vial) 10 unit SUBCUT QIDACHS [facility] Last Admin: 11/16/23 08:45 Dose: Not Given Levothyroxine Sodium (Levothyroxine Sodium 125 Mcg Tablet) 125 mcg PO DAILY@0600 [facility] Last Admin: 11/16/23 08:13 Dose: 125 mcg Lisinopril (Lisinopril 10 Mg Tablet) 10 mg PO DAILY [facility]; Protocol Last Admin: 11/16/23 08:55 Dose: 10 mg [place] Carbonate ([place] Carbonate 300 Mg Tablet) 150 mg PO BID [facility] Last Admin: 11/16/23 08:56 Dose: 150 mg Loratadine (Loratadine 10 Mg Tablet) 10 mg PO DAILY PRN PRN Reason: Allergic Reaction Magnesium Hydroxide (Milk Of Magnesia 30 Ml Oral.Susp) 30 ml PO DAILY PRN PRN Reason: Constipation Magnesium Oxide (Magnesium Oxide 400 Mg Tablet) 400 mg PO DAILY [facility] Last Admin: 11/16/23 08:56 Dose: 400 mg Olanzapine (Olanzapine 5 Mg Tablet) 5 mg PO BEDTIME [facility] Last Admin: 11/15/23 21:15 Dose: Not Given Olanzapine (Olanzapine 5 Mg Tablet) 5 mg PO Q4H PRN PRN Reason: Psychosis Last Admin: 11/15/23 04:57 Dose: 5 mg Propranolol HCl (Propranolol Hcl 40 Mg Tablet) 80 mg PO TID [facility]; Protocol Last Admin: 11/16/23 08:56 Dose: 80 mg Risperidone (Risperidone 1 Mg Tablet) 1 mg PO DAILY [facility] Last Admin: 11/16/23 08:56 Dose: 1 mg Trazodone HCl (Trazodone Hcl 50 Mg Tablet) 50 mg PO BEDTIME MRX1 PRN PRN Reason: Insomnia Last Admin: 11/14/23 20:57 Dose: 50 mg Allergies Allergies Allergy/AdvReac Type Severity Reaction Status Date / Time haloperidol [From Haldol] AdvReac Unknown Verified 10/28/20 06:32 Assessment & Plan Assessment & Plan (1) Schizoaffective disorder, bipolar type: Status: Acute Code(s): F25.0 - Schizoaffective disorder, bipolar type Plan continue/restart outpt meds. medical med changes as per hospitalist recommendation. anticipate improvement with presumed Sx attributable to mental illness and lack of compliance with medications. if no improvement as lithium and VPA levels enter therapeutic range, will need to consider delirium as Dx and return to medical w/u for etiology. 11/16/2023 Ammonia level 22 repeat electrolytes continue Depakote olanzapine would benefit from clarification of antipsychotic dosing and response Reason for continued inpatient stay Substantial Risk for: harm to others, inability to function and rapid decompensation Time Spent With Patient Time: Total time managing care of this patient today ____ minutes.
[2023-11-16 12:24] LABS: Glucose, Whole Blood 205 mg/dL (60-115)
[2023-11-16] MEDS: Insulin Lispro 100 UNIT/ML 3 ML VIAL SUBCUT ×3 (13:12→21:30)
[2023-11-16] MEDS: Insulin Lispro 100 UNIT/ML 3 ML VIAL 10 UNIT SUBCUT (13:13)
[2023-11-16 15:50] VITALS: BP 133/84; PULSE 86
[2023-11-16 16:46] LABS: Ammonia 22 umol/L (13-55)
[2023-11-16 16:53] LABS: Anion Gap 15 (12-20); Blood Urea Nitrogen 18 mg/dL (9-16); Calcium 8.8 mg/dL (8.4-10.2); Carbon Dioxide 24 mmol/L (22-29); Chloride 103 mmol/L (96-108); Creatinine Clr Calc Pharmacy 72.6; Estimated Glomerular Filt Rate > 60; Glucose Random 372 mg/dL (60-115); Potassium 4.7 mmol/L (3.3-5.1); Sodium 137 mmol/L (135-145)
--- NOTE | 2023-11-16 17:07 | PM.EVENT ---
Event Note Date of Service: 11/16/23 Event Note: Patient's blood sugars 96 this morning. Will discontinue standing order for 10 units lispro QIDACHS and increase sliding scale by 2 units. Continues to be manic and although placed on diabetic diet, continues to snack indiscriminately. Pt also has been occasionally refusing insulin, all of which makes it difficult to control her glucose levels. We will continue to follow for now and adjust insulin regimen as necessary. Time Spent With Patient Time: Total time managing care of this patient today ____ minutes.
[2023-11-16] MEDS: Divalproex Sodium 500 MG TABLET.DR 1500 MG PO (17:25)
[2023-11-16 17:40] LABS: Glucose, Whole Blood 318 mg/dL (60-115)
[2023-11-16 20:45] VITALS: BP 142/65; PULSE 75; RESP 18; TEMP 36.4; O2SAT 96
[2023-11-16 21:29] LABS: Glucose, Whole Blood 230 mg/dL (60-115)
[2023-11-16] MEDS: traZODone HCL 50 MG TABLET PO (21:29)
[2023-11-16 21:30] VITALS: BP 142/65; PULSE 75
[2023-11-16] MEDS: hydrOXYzine HCL 50 MG TABLET PO (21:30)
[2023-11-16] MEDS: OLANZapine 5 MG TABLET PO (21:30)
[2023-11-16] MEDS: hydrOXYzine HCL 25 MG TABLET PO (21:30)
[2023-11-16] MEDS: Insulin Glargine,Hum.rec.anlog 100 UNIT/ML 10 ML VIAL 20 UNIT SUBCUT (21:31)
[2023-11-17] MEDS: Levothyroxine Sodium 125 MCG TABLET PO (06:36)
[2023-11-17 08:00] VITALS: BP 140/67; PULSE 75; RESP 16; TEMP 36.4; O2SAT 96
[2023-11-17 08:13] LABS: Glucose, Whole Blood 76 mg/dL (60-115)
[2023-11-17] MEDS: Lithium Carbonate 300 MG TABLET 150 MG PO (08:31)
[2023-11-17 08:32] VITALS: BP 140/67; PULSE 75
[2023-11-17] MEDS: Propranolol HCL 40 MG TABLET 80 MG PO ×2 (08:32→15:36)
[2023-11-17] MEDS: Magnesium Oxide 400 MG TABLET PO (08:32)
[2023-11-17] MEDS: lisinopriL 10 MG TABLET PO (08:32)
[2023-11-17] MEDS: risperiDONE 1 MG TABLET PO (08:32)
[2023-11-17] MEDS: Insulin Glargine,Hum.rec.anlog 100 UNIT/ML 10 ML VIAL 40 UNIT SUBCUT (09:28)
--- OUTSIDE RECORDS SUMMARY | 2023-11-17 10:01 | XMS_ITS | Continuity of Care Document ---
Author Organization [facility] ter Address [address] [place] [address]- Care Team Providers Care Hop Sorter Name Role Phone Daisha Macario MD Primary Care Physician [id number] Date(s): 10/22/20 - 10/27/[address] [address]- Encounter Diagnosis Altered mental status(Final) - 10/23/20 Schizophrenia(Final) - 10/23/20 Discharge Disposition: Transfer to [facility] Facility Attending Physician: Vick Sifuentes DO Admitting Physician: Vick Sifuentes DO Referring Physician: Not on Staff, Referring MD Allergies, Adverse Reactions, Alerts Substance Reaction Severity Status Haldol Active Medications acetaminophen 325 mg oral tablet 650 mg, 2, tablet, By Mouth, Every 6 hours, PRN, Maintenance, as needed for fever/pain, 10/23/20 13:55:00 EDT Start Date: 10/23/20 Status: Ordered Actos 30 mg oral tablet 1 tablet = 30 mg, By Mouth, Daily, Maintenance, 10/23/20 13:41:00 EDT, Tablet, ; Start Date: 10/23/20 Status: Ordered amLODIPine 10 mg oral tablet 10 mg, Tablet, By Mouth, 10/27/20 9:00:00 EDT Start Date: 10/27/20 Stop Date: 10/27/20 Status: Completed aspirin 81 mg oral delayed release tablet 81 mg, 1, tablet, By Mouth, Daily, Maintenance, 10/23/20 13:39:00 EDT, ; Start Date: 10/23/20 Status: Ordered Disposable Enema 133 mL, Rectally, Once, PRN as needed for constipation, if no results from ducolax suppository, Maintenance, 10/23/20 13:59:00 EDT, ; Start Date: 10/23/20 Status: Ordered divalproex sodium 500 mg oral enteric coated tablet 1 tablet = 500 mg, By Mouth, 2 times a day, Maintenance, 10/23/20 13:46:00 EDT, ; Start Date: 10/23/20 Status: Ordered Dulcolax 10 mg rectal suppository 1 supp = 10 mg, Rectally, Daily, PRN for constipation, Maintenance, 10/23/20 14:10:00 EDT, Suppository, ; Start Date: 10/23/20 Status: Ordered ferrous sulfate 325 mg oral enteric coated tablet 325 mg, 1, tablet, By Mouth, Daily, Maintenance, 10/23/20 13:48:00 EDT, ; Start Date: 10/23/20 Status: Ordered glucose 15 g/42 mL oral gel = 15 Gm, By Mouth, PRN hypoglycemia, Maintenance, 10/23/20 13:58:00 EDT, ; Start Date: 10/23/20 Status: Ordered insulin aspart 100 units/mL injectable solution Subcutaneous Injection, Once, PER SLIDDING SCALE 200-250 = 2 units 251-300 = 4 units 301-350 = 6 units 351-400 = 8 units 401-450 = 10 units ig greater than 450 call MD, Maintenance, 10/23/20 14:00:00EDT, Partial fill upon patient request if th... Start Date: 10/23/20 Status: Ordered Lantus 100 u/ml subcutaneous solution = 28 units, Subcutaneous Injection, Daily at bedtime, Maintenance, 10/23/20 13:52:00 EDT, ; Start Date: 10/23/20 Status: Ordered levothyroxine 0.1 mg oral tablet 1 tablet = 100 mcg, By Mouth, Daily, Maintenance, 10/23/20 13:50:00 EDT, Tablet, ; Start Date: 10/23/20 Status: Ordered lithium 300 mg oral tablet 1 tablet = 300 mg, By Mouth, Daily at bedtime, Maintenance, 10/23/20 13:51:00 EDT, ; Start Date: 10/23/20 Status: Ordered magnesium oxide 400 mg oral tablet 1 tablet = 400 mg, By Mouth, Daily, 0 Refills, Maintenance, 08/21/18 11:00:02 EDT, Tablet Start Date: 08/21/18 Stop Date: 09/20/18 Status: Ordered melatonin 5 mg oral tablet 1 tablet = 5 mg, By Mouth, Daily at bedtime, Maintenance, 10/23/20 13:53:00 EDT, Tablet, ; Start Date: 10/23/20 Status: Ordered metFORMIN 1000 mg oral tablet 1 tablet = 1,000 mg, By Mouth, 2 times a day, # 60 tablet, 5 Refills, Maintenance, 08/24/18 10:04:51 EDT, Tablet Start Date: 08/24/18 Status: Ordered metoprolol 50 mg oral tablet 50 mg, 1, tablet, By Mouth, Daily, HOLD BP LESS THAN 90/60, Maintenance, 10/23/20 13:37:00 EDT, ; Start Date: 10/23/20 Status: Ordered metoprolol 50 mg oral tablet, extended release 50 mg, XL Tablet, By Mouth, 10/27/20 9:00:00 EDT Start Date: 10/27/20 Stop Date: 10/27/20 Status: Completed Milk of Magnesia 30 mL, By Mouth, Daily, PRN as needed for constipation, and or if no BM in 3 days 1200 mg/15ml, Maintenance, 10/23/20 14:06:00 EDT, ; Start Date: 10/23/20 Status: Ordered Norvasc 10 mg oral tablet 10 mg, 1, tablet, By Mouth, Daily, Maintenance, 10/23/20 13:49:00 EDT, ; Start Date: 10/23/20 Status: Ordered pioglitazone 30 mg oral tablet 1 tablet = 30 mg, By Mouth, Daily, Maintenance, 10/23/20 14:13:00 EDT, ; Start Date: 10/23/20 Status: Ordered risperiDONE 4 mg oral tablet 1 tablet = 4 mg, By Mouth, 2 times a day, Maintenance, 10/23/20 13:54:00 EDT, Tablet, ; Start Date: 10/23/20 Status: Ordered traZODone 100 mg oral tablet 200 mg, 2, tablet, By Mouth, Daily at bedtime, Maintenance, 10/23/20 13:40:00 EDT, ; Start Date: 10/23/20 Status: Ordered Problem List Condition Effective Dates Status Health Status Inform ant Chronic bipolar disorder(Confirmed) Active Essential hypertension(Confirmed) Active Chronic GERD(Confirmed) Active MINERVA (generalized anxiety disorder)(Confirmed) Active History of hyperlipidemia(Confirmed) Active Adult hypothyroidism(Confirmed) Active Diabetes mellitus, insulin d ependent (IDDM), uncontrolled(Confirmed) Active Results Orders for Microbiology Reports Name Date Urine Culture (URINE CULTURE) 10/25/20 Microbiology Reports TEST:Urine Culture STATUS:Unauthenticated BODY SITE: SOURCE:URINE COLLECTED DATE/TIME:10/25/20 2:21 PM Urine Culture SPECIMEN DESCRIPTION : URINE SPECIAL REQUESTS : NONE CULTURE : >100,000 COL/ML STAPH. SPECIES, BEING IDENTIFIED <10,000 COL/ML GRAM NEGATIVE RODS SUSCEPTIBILITY TESTING NOT ROUTINELY PERFORMED ON THIS ISOLATE. REPORT STATUS : PRELIMINARY REPORT Radiology Reports * Exam Date Time Procedure Performing Provider Status 10/22/20 11:45 PM Chest Portable Osmani Carter; Aut h (Verified) Notes: (Chest Portable) Reason For Exam: Shortness of Breath RESULT: Chest Portable PROCEDURE: Chest Portable CLINICAL INDICATION: 60 years old Female with Hx of Present Illness: AMS; Reason: Shortness of Breath; Clinical Question(s): Pneumonia. COMPARISON: None. FINDINGS: Portable AP erect view of the chest performed at 7:24 PM. Lines and tubes: None. Lungs and pleura: Shallow inspiration. Lungs clear as visualized. No pleural effusions.No evidence of pneumothorax. Heart, mediastinum and dianne: Mild deviation of the trachea from LEFT to RIGHT. No convincing evidence of mediastinal hematoma. Top normal cardiac size probably an artifact of poor lung inflation. No pulmonary venous hypertension. Bones and soft tissues: Mild degenerative changes in the thoracic spine and AC joints bilaterally. IMPRESSION: 1. Shallow inspiration. No evidence of acute cardiopulmonary disease. 2. Mild deviation of the trachea from LEFT to RIGHT of unknown etiology, possibly positional. Consider PA and lateral chest radiographs. Thank you for allowing me to participate in the care of this patient. WSN: [id number] Ordering Physician: Marie Estrella Dictated By: Bola Garcia MD Dictated Date/Time: 10/23/20 0:12 am Reviewed By: Bola Garcia MD Signed By: Bola Garcia MD Signed Date/Time: 10/23/20 0:12 am Transcribed By: JO Transcribed Date/Time: 10/23/20 0:09 am Vital Signs Most recent to oldest [Reference Range]: 1 2 3 Oxygen Saturation [94-100 %] 99 % (10/27/20 3:12 PM) 95 % (10/27/20 9:36 AM) 95 % (10/27/20 6:44 AM) Pulse Rate [55-90 bpm] 95 bpm *H* (10/27/20 3:12 PM) 94 bpm *H* (10/27/20 9:49 AM) 94 bpm *H* (10/27/20 9:36 AM) Blood Pressure [90-138/55-84 mm Hg] 128/75mm Hg (10/27/20 3:12 PM) 146/67mm Hg *H* (10/27/20 9:49 AM) 146/67mm Hg *H* (10/27/20 9:49 AM) Respiratory Rate [16-30 br/min] 16 br/min (10/27/20 3:12 PM) 18 br/min (10/27/20 9:36 AM) 18 br/min (10/27/20 6:44 AM) Temperature [96.8-100.4 DegF] 99.1 DegF (10/27/20 3:12 PM) 98.3 DegF (10/27/20 9:36 AM) 98.7 DegF (10/27/20 6:44 AM) Mode of Delivery (Oxygen) Room air (10/27/20 3:12 PM) Room air (10/27/20 9:36 AM) Room air (10/27/20 6:44 AM) Blood pressure sites Arm, right (10/26/20 9:47 PM) Arm, right (10/26/20 5:37 PM) Arm, right (10/26/20 7:50 AM) Temperature Route Oral (10/27/20 3:12 PM) Oral (10/27/20 9:36 AM) Oral (10/27/20 6:44 AM) Social History Social History Type Response Smoking Status Never (less than 100 in lifetime) entered on: 08/21/18 Sex Female
--- OUTSIDE RECORDS SUMMARY | 2023-11-17 10:01 | XMS_ITS | Continuity of Care Document ---
Author Organization [facility] y Address [address] [place] [address]- Care Team Providers Care Blanching Machine Operator Name Role Phone Renaldo BAIG, Daisha Primary Care Physician [phone] Encounter [facility] Date(s): 04/02/20 - 06/05/20 [facility] [address], [place] [address] Attending Physician: Mahamed Fink DO Admitting Physician: Mahamed Fink DO Referring Physician: Shaun Abdi MD Allergies, Adverse Reactions, Alerts Substance Reaction Severity Status Haldol Active Medications amLODIPine 5 mg oral tablet 5 mg, 1, tablet, By Mouth, Daily, # 30 tablet, Refills 11, Tot. Refills 11, Maintenance, 08/24/18 10:03:10 EDT, Route to Pharmacy Electronically, [id number], [facility] 1965 Start Date: 08/24/18 Status: Ordered Ativan 1 mg oral tablet 1 tablet = 1 mg, By Mouth, 3 times a day, 0 Refills, Maintenance, 08/21/18 10:56:33 EDT, Tablet Start Date: 08/21/18 Status: Ordered atorvastatin 40 mg oral tablet 1 tablet = 40 mg, By Mouth, Daily, # 30 tablet, 11 Refills, Maintenance, Tablet, Route to Pharmacy Electronically, [id number], [email or web address] 1965 Start Date: 08/24/18 Status: Ordered clozapine 50 mg oral tablet 3 tablet = 150 mg, By Mouth, Daily at bedtime, # 120 tablet, 0 Refills, Maintenance, 08/24/18 10:04:05 EDT, Tablet Start Date: 08/24/18 Status: Ordered clozapine 50 mg oral tablet 1 tablet = 50 mg, By Mouth, Daily in AM, # 30 tablet, 2 Refills, Maintenance, 08/24/18 10:04:24 EDT, Tablet Start Date: 08/24/18 Status: Ordered glycopyrrolate 2 mg oral tablet 1 tablet = 2 mg, By Mouth, Daily at bedtime, 0 Refills, Maintenance, 09/26/18 21:27:26 EDT Start Date: 09/26/18 Status: Ordered Insulin Glargine = 15 units, Subcutaneous Infusion, Daily at bedtime, 0 Refills, Maintenance, 09/26/18 21:26:28 EDT Start Date: 09/26/18 Status: Ordered levothyroxine 150 mcg (0.15 mg) oral tablet 1 tablet = 150 mcg, By Mouth, Daily, # 30 tablet, 5 Refills, Maintenance, 08/24/18 10:04:37 EDT, Tablet Start Date: 08/24/18 Status: Ordered lithium 300 mg oral capsule 1 capsule = 300 mg, By Mouth, 2 times a day, # 60 capsule, 5 Refills, Maintenance, 08/24/18 10:04:46 EDT, Capsule Start Date: 08/24/18 Status: Ordered magnesium oxide 400 mg oral tablet 1 tablet = 400 mg, By Mouth, Daily, # 30 tablet, 0 Refills, Maintenance, 08/21/18 11:00:02 EDT, Tablet Start Date: 08/21/18 Stop Date: 09/20/18 Status: Ordered metFORMIN 1000 mg oral tablet 1 tablet = 1,000 mg, By Mouth, 2 times a day, # 60 tablet, 5 Refills, Maintenance, 08/24/18 10:04:51 EDT, Tablet Start Date: 08/24/18 Status: Ordered metoprolol 25 mg oral tablet 12.5 mg, 0.5, tablet, By Mouth, 2 times a day, # 180 tablet, Refills 0, Maintenance, 09/26/18 21:25:43 EDT Start Date: 09/26/18 Status: Ordered NuLYTELY with Flavor Packs oral powder for reconstitution 240 mL, By Mouth, Every 10 minutes, # 1 each, 0 Refills, Maintenance, 08/29/18 10:27:31 EDT, REC Powder, test date 12/03/18, 240 mL By Mouth Every 10 minutes Start Date: 08/29/18 Status: Ordered omeprazole 10 mg oral enteric coated capsule 2 capsule = 20 mg, By Mouth, Daily, # 30 capsule, 0 Refills, Maintenance, 08/21/18 10:58:13 EDT, ECCapsule Start Date: 08/21/18 Status: Ordered pioglitazone 15 mg oral tablet 1 tablet = 15 mg, By Mouth, Daily, # 30 tablet, 5 Refills, Maintenance, 08/24/18 10:05:01 EDT, Tablet Start Date: 08/24/18 Status: Ordered Problem List Condition Effective Dates Status Health Status Inform ant Chronic bipolar disorder(Confirmed) Active Essential hypertension(Confirmed) Active Chronic GERD(Confirmed) Active MINERVA (generalized anxiety disorder)(Confirmed) Active History of hyperlipidemia(Confirmed) Active Adult hypothyroidism(Confirmed) Active Diabetes mellitus, insulin d ependent (IDDM), uncontrolled(Confirmed) Active Social History Social History Type Response Smoking Status Never (less than 100 in lifetime) entered on: 08/21/18 Sex Female
[2023-11-17 12:43] LABS: Glucose, Whole Blood 253 mg/dL (60-115)
[2023-11-17] MEDS: Insulin Lispro 100 UNIT/ML 3 ML VIAL SUBCUT ×2 (13:00→18:27)
--- NOTE | 2023-11-17 15:32 | P.PNPSI_ITS ---
Subjective Subjective Date of Service: 11/17/23 Reason For Visit: Psychosis Interim History: remains with non-sequitur responses, somewhat irritable. no complaints or requests. per staff, no dep/anx. withdrawn, labile. slept 8 hours. Mental Status Exam Mental Status Exam Narrative: adequately dressed and groomed. largely edentulous. cooperative. no PMA/PMR. speech nml rate, decr amount. nml loudness, tone, latency. thoughts disorganized and bizarre. affect full range, normo-intense, min-labile. mood good. no SI/SIBI/HI/AVH expressed. Diagnostics Vital Signs (24Hr): Vital Signs - 24 hr 11/16/23 15:50 11/16/23 20:45 11/16/23 21:30 Temperature 97.5 F Pulse Rate 86 75 75 Respiratory Rate 18 Blood Pressure 133/84 142/65 H 142/65 H Pulse Oximetry 96 Oxygen Delivery Method Room Air 11/17/23 08:00 11/17/23 08:32 11/17/23 08:32 Temperature 97.6 F Pulse Rate 75 75 Respiratory Rate 16 Blood Pressure 140/67 H 140/67 H 140/67 H Pulse Oximetry 96 Oxygen Delivery Method Room Air BMI result Body Mass Index 40.2 Labs 11/16/23 16:26 Labs: Laboratory Results - last 48 hr 11/15/23 11/16/23 11/16/23 17:38 08:01 08:31 Sodium Potassium Chloride Carbon Dioxide Anion Gap BUN Creatinine Estim Creat Clear Calc Estimated GFR POC Glucose 318 H 96 Random Glucose Estimat Average Glucose 217 Hemoglobin A1c % 9.2 H Calcium Ammonia 11/16/23 11/16/23 11/16/23 12:18 16:26 17:34 Sodium 137 Potassium 4.7 Chloride 103 Carbon Dioxide 24 Anion Gap 15 BUN 18 H Creatinine 0.82 Estim Creat Clear Calc 72.6 Estimated GFR > 60 POC Glucose 205 H 318 H Random Glucose 372 H* Estimat Average Glucose Hemoglobin A1c % Calcium 8.8 Ammonia 22 11/16/23 11/17/23 11/17/23 21:25 08:04 12:40 Sodium Potassium Chloride Carbon Dioxide Anion Gap BUN Creatinine Estim Creat Clear Calc Estimated GFR POC Glucose 230 H 76 253 H Random Glucose Estimat Average Glucose Hemoglobin A1c % Calcium Ammonia Medications Medications Current Medications Acetaminophen (Acetaminophen 325 Mg Tablet) 650 mg PO Q6H PRN PRN Reason: Headache/Pain Mild Scale (1-3) Al Hydroxide/Mg Hydroxide (Magnesium Hydrox/Alum Hydrox 30 Ml Oral.Susp) 30 ml PO Q6H PRN PRN Reason: Heartburn/Nausea Divalproex Sodium (Divalproex Sodium 500 Mg Tablet.Dr) 1,500 mg PO DAILY@1800 [facility] Last Admin: 11/16/23 17:25 Dose: 1,500 mg Glucose (Glucose Gel 15 Gm Gel..Gram.) 15 gm PO Q15M PRN; Protocol PRN Reason: per Hypoglycemia Standing Ord. Hydroxyzine HCl (Hydroxyzine Hcl 25 Mg Tablet) 25 mg PO Q6H PRN PRN Reason: Anxiety Last Admin: 11/16/23 21:30 Dose: 25 mg Hydroxyzine HCl (Hydroxyzine Hcl 50 Mg Tablet) 50 mg PO BEDTIME [facility] Last Admin: 11/16/23 21:30 Dose: 50 mg Insulin Glargine (Insulin Glargine,Hum.Rec.Anlog 100 Unit/Ml 10 Ml Vial) 40 unit SUBCUT DAILY [facility] Last Admin: 11/17/23 09:28 Dose: 40 unit Insulin Glargine (Insulin Glargine,Hum.Rec.Anlog 100 Unit/Ml 10 Ml Vial) 20 unit SUBCUT BEDTIME [facility] Last Admin: 11/16/23 21:31 Dose: 20 unit Insulin Human Lispro (Insulin Lispro 100 Unit/Ml 3 Ml Vial) 0 unit SUBCUT QIDACHS [facility]; Protocol Last Admin: 11/17/23 13:00 Dose: 6 unit Levothyroxine Sodium (Levothyroxine Sodium 125 Mcg Tablet) 125 mcg PO DAILY@0600 [facility] Last Admin: 11/17/23 06:36 Dose: 125 mcg Lisinopril (Lisinopril 10 Mg Tablet) 10 mg PO DAILY [facility]; Protocol Last Admin: 11/17/23 08:32 Dose: 10 mg [place] Carbonate ([place] Carbonate 300 Mg Tablet) 150 mg PO BID [facility] Last Admin: 11/17/23 08:31 Dose: 150 mg Loratadine (Loratadine 10 Mg Tablet) 10 mg PO DAILY PRN PRN Reason: Allergic Reaction Magnesium Hydroxide (Milk Of Magnesia 30 Ml Oral.Susp) 30 ml PO DAILY PRN PRN Reason: Constipation Magnesium Oxide (Magnesium Oxide 400 Mg Tablet) 400 mg PO DAILY [facility] Last Admin: 11/17/23 08:32 Dose: 400 mg Olanzapine (Olanzapine 5 Mg Tablet) 5 mg PO BEDTIME [facility] Last Admin: 11/16/23 21:30 Dose: 5 mg Olanzapine (Olanzapine 5 Mg Tablet) 5 mg PO Q4H PRN PRN Reason: Psychosis Last Admin: 11/15/23 04:57 Dose: 5 mg Propranolol HCl (Propranolol Hcl 40 Mg Tablet) 80 mg PO TID [facility]; Protocol Last Admin: 11/17/23 08:32 Dose: 80 mg Risperidone (Risperidone 1 Mg Tablet) 1 mg PO DAILY [facility] Last Admin: 11/17/23 08:32 Dose: 1 mg Trazodone HCl (Trazodone Hcl 50 Mg Tablet) 50 mg PO BEDTIME MRX1 PRN PRN Reason: Insomnia Last Admin: 11/16/23 21:29 Dose: 50 mg Allergies Allergies Allergy/AdvReac Type Severity Reaction Status Date / Time haloperidol [From Haldol] AdvReac Unknown Verified 10/28/20 06:32 Assessment & Plan Assessment & Plan (1) Schizoaffective disorder, bipolar type: Status: Acute Code(s): F25.0 - Schizoaffective disorder, bipolar type Plan 11/14: continue/restart outpt meds. medical med changes as per hospitalist recommendation. anticipate improvement with presumed Sx attributable to mental illness and lack of compliance with medications. if no improvement as lithium and VPA levels enter therapeutic range, will need to consider delirium as Dx and return to medical w/u for etiology. 11/15: Ammonia level 22 repeat electrolytes continue Depakote olanzapine would benefit from clarification of antipsychotic dosing and response. 11/16: continue current Tx Reason for continued inpatient stay Substantial Risk for: inability to function and rapid decompensation Time Spent With Patient Time: Total time managing care of this patient today __25__ minutes.
[2023-11-17 15:36] VITALS: BP 132/86; PULSE 80
[2023-11-17 17:54] LABS: Glucose, Whole Blood 202 mg/dL (60-115)
[2023-11-17] MEDS: Divalproex Sodium 500 MG TABLET.DR 1500 MG PO (18:29)
[2023-11-17 20:00] VITALS: RESP 20
[2023-11-18 07:32] VITALS: BP 136/91; PULSE 72; RESP 14; TEMP 36.3; O2SAT 96
[2023-11-18 09:12] LABS: Glucose, Whole Blood 139 mg/dL (60-115)
[2023-11-18] MEDS: Lithium Carbonate 300 MG TABLET 150 MG PO ×2 (09:26→20:16)
[2023-11-18] MEDS: risperiDONE 1 MG TABLET PO (09:26)
[2023-11-18 09:27] VITALS: BP 136/91; PULSE 72
[2023-11-18] MEDS: Propranolol HCL 40 MG TABLET 80 MG PO ×3 (09:27→20:15)
[2023-11-18 09:28] VITALS: BP 136/91
[2023-11-18] MEDS: Levothyroxine Sodium 125 MCG TABLET PO (09:28)
[2023-11-18] MEDS: Insulin Glargine,Hum.rec.anlog 100 UNIT/ML 10 ML VIAL 40 UNIT SUBCUT (09:28)
[2023-11-18] MEDS: lisinopriL 10 MG TABLET PO (09:28)
[2023-11-18] MEDS: Magnesium Oxide 400 MG TABLET PO (09:28)
[2023-11-18 14:29] VITALS: BP 145/67; PULSE 76
--- NOTE | 2023-11-18 15:48 | HO.PSYCHPN ---
Subjective Subjective Date of Service: 11/18/23 Reason For Visit: Psychosis Interim History: no change in presentation. generally cooperative, but responding with non-sequiturs. indicates she may be hearing AH: pretty things that god tells me. per staff, disruptive last night to unit with loud singing. went to sleep at 0600. pacing, wandering. Mental Status Exam Mental Status Exam Narrative: adequately dressed and groomed. largely edentulous. cooperative. no PMA/PMR. speech nml rate, decr amount. nml loudness, tone, latency. thoughts disorganized and bizarre. affect full range, normo-intense, min-labile. mood good. no SI/SIBI/HI/VH expressed. seems to endorse AH: refers to pretty things god tells me. Diagnostics Vital Signs (24Hr): Vital Signs - 24 hr 11/17/23 20:00 11/18/23 07:32 11/18/23 09:27 Temperature 97.3 F Pulse Rate 72 72 Respiratory Rate 20 14 Blood Pressure 136/91 H 136/91 H Pulse Oximetry 96 Oxygen Delivery Method Room Air 11/18/23 09:28 11/18/23 14:29 Temperature Pulse Rate 76 Respiratory Rate Blood Pressure 136/91 H 145/67 H Pulse Oximetry Oxygen Delivery Method BMI result Body Mass Index 40.2 Labs 11/16/23 16:26 Labs: Laboratory Results - last 48 hr 11/16/23 11/16/23 11/16/23 16:26 17:34 21:25 Sodium 137 Potassium 4.7 Chloride 103 Carbon Dioxide 24 Anion Gap 15 BUN 18 H Creatinine 0.82 Estim Creat Clear Calc 72.6 Estimated GFR > 60 POC Glucose 318 H 230 H Random Glucose 372 H* Calcium 8.8 Ammonia 22 11/17/23 11/17/23 11/17/23 08:04 12:40 17:48 Sodium Potassium Chloride Carbon Dioxide Anion Gap BUN Creatinine Estim Creat Clear Calc Estimated GFR POC Glucose 76 253 H 202 H Random Glucose Calcium Ammonia 11/18/23 09:02 Sodium Potassium Chloride Carbon Dioxide Anion Gap BUN Creatinine Estim Creat Clear Calc Estimated GFR POC Glucose 139 H Random Glucose Calcium Ammonia Medications Medications Current Medications Acetaminophen (Acetaminophen 325 Mg Tablet) 650 mg PO Q6H PRN PRN Reason: Headache/Pain Mild Scale (1-3) Al Hydroxide/Mg Hydroxide (Magnesium Hydrox/Alum Hydrox 30 Ml Oral.Susp) 30 ml PO Q6H PRN PRN Reason: Heartburn/Nausea Divalproex Sodium (Divalproex Sodium 500 Mg Tablet.) 1,500 mg PO DAILY@1800 [facility] Last Admin: 11/17/23 18:29 Dose: 1,500 mg Glucose (Glucose Gel 15 Gm Gel..Gram.) 15 gm PO Q15M PRN; Protocol PRN Reason: per Hypoglycemia Standing Ord. Hydroxyzine HCl (Hydroxyzine Hcl 25 Mg Tablet) 25 mg PO Q6H PRN PRN Reason: Anxiety Last Admin: 11/16/23 21:30 Dose: 25 mg Hydroxyzine HCl (Hydroxyzine Hcl 50 Mg Tablet) 50 mg PO BEDTIME [facility] Last Admin: 11/17/23 22:19 Dose: Not Given Insulin Glargine (Insulin Glargine,Hum.Rec.Anlog 100 Unit/Ml 10 Ml Vial) 40 unit SUBCUT DAILY [facility] Last Admin: 11/18/23 09:28 Dose: 40 unit Insulin Glargine (Insulin Glargine,Hum.Rec.Anlog 100 Unit/Ml 10 Ml Vial) 20 unit SUBCUT BEDTIME [facility] Last Admin: 11/17/23 22:19 Dose: Not Given Insulin Human Lispro (Insulin Lispro 100 Unit/Ml 3 Ml Vial) 0 unit SUBCUT QIDACHS [facility]; Protocol Last Admin: 11/18/23 12:53 Dose: Not Given Levothyroxine Sodium (Levothyroxine Sodium 125 Mcg Tablet) 125 mcg PO DAILY@0600 [facility] Last Admin: 11/18/23 09:28 Dose: 125 mcg Lisinopril (Lisinopril 10 Mg Tablet) 10 mg PO DAILY [facility]; Protocol Last Admin: 11/18/23 09:28 Dose: 10 mg [place] Carbonate ([place] Carbonate 300 Mg Tablet) 150 mg PO BID [facility] Last Admin: 11/18/23 09:26 Dose: 150 mg Loratadine (Loratadine 10 Mg Tablet) 10 mg PO DAILY PRN PRN Reason: Allergic Reaction Magnesium Hydroxide (Milk Of Magnesia 30 Ml Oral.Susp) 30 ml PO DAILY PRN PRN Reason: Constipation Magnesium Oxide (Magnesium Oxide 400 Mg Tablet) 400 mg PO DAILY [facility] Last Admin: 11/18/23 09:28 Dose: 400 mg Olanzapine (Olanzapine 5 Mg Tablet) 5 mg PO BEDTIME [facility] Last Admin: 11/17/23 22:20 Dose: Not Given Olanzapine (Olanzapine 5 Mg Tablet) 5 mg PO Q4H PRN PRN Reason: Psychosis Last Admin: 11/15/23 04:57 Dose: 5 mg Propranolol HCl (Propranolol Hcl 40 Mg Tablet) 80 mg PO TID [facility]; Protocol Last Admin: 11/18/23 14:29 Dose: 80 mg Risperidone (Risperidone 1 Mg Tablet) 1 mg PO DAILY [facility] Last Admin: 11/18/23 09:26 Dose: 1 mg Trazodone HCl (Trazodone Hcl 50 Mg Tablet) 50 mg PO BEDTIME MRX1 PRN PRN Reason: Insomnia Last Admin: 11/16/23 21:29 Dose: 50 mg Allergies Allergies Allergy/AdvReac Type Severity Reaction Status Date / Time haloperidol [From Haldol] AdvReac Unknown Verified 10/28/20 06:32 Assessment & Plan Assessment & Plan (1) Schizoaffective disorder, bipolar type: Status: Acute Code(s): F25.0 - Schizoaffective disorder, bipolar type Plan 11/14: continue/restart outpt meds. medical med changes as per hospitalist recommendation. anticipate improvement with presumed Sx attributable to mental illness and lack of compliance with medications. if no improvement as lithium and VPA levels enter therapeutic range, will need to consider delirium as Dx and return to medical w/u for etiology. 11/15: Ammonia level 22 repeat electrolytes continue Depakote olanzapine would benefit from clarification of antipsychotic dosing and response. 11/16: continue current Tx 11/17: no change in presentation. continue current mgmt. Reason for continued inpatient stay Substantial Risk for: inability to function Time Spent With Patient Time: Total time managing care of this patient today ____ minutes.
[2023-11-18 18:10] LABS: Glucose, Whole Blood 257 mg/dL (60-115)
[2023-11-18] MEDS: Insulin Lispro 100 UNIT/ML 3 ML VIAL SUBCUT ×2 (18:22→20:13)
[2023-11-18] MEDS: Divalproex Sodium 500 MG TABLET.DR 1500 MG PO (18:22)
[2023-11-18 19:40] VITALS: BP 159/69; PULSE 75; RESP 16; TEMP 36.1; O2SAT 98
[2023-11-18 20:04] LABS: Glucose, Whole Blood 291 mg/dL (60-115)
[2023-11-18] MEDS: Insulin Glargine,Hum.rec.anlog 100 UNIT/ML 10 ML VIAL 20 UNIT SUBCUT (20:12)
[2023-11-18 20:15] VITALS: BP 159/69; PULSE 75
[2023-11-18] MEDS: hydrOXYzine HCL 50 MG TABLET PO (20:16)
[2023-11-18] MEDS: OLANZapine 5 MG TABLET PO (20:17)
[2023-11-19] VITALS (7 sets, daily range): BP systolic 125–138; BP diastolic 58–81; PULSE 50–80; RESP 14–18; TEMP 36.5–36.6; O2SAT 96–97
[2023-11-19] MEDS: Levothyroxine Sodium 125 MCG TABLET PO (06:30)
[2023-11-19 08:40] LABS: Glucose, Whole Blood 99 mg/dL (60-115)
[2023-11-19] MEDS: Propranolol HCL 40 MG TABLET 80 MG PO ×2 (08:40→21:18)
[2023-11-19] MEDS: Lithium Carbonate 300 MG TABLET 150 MG PO ×2 (08:41→21:20)
[2023-11-19] MEDS: risperiDONE 1 MG TABLET PO (08:41)
[2023-11-19] MEDS: Magnesium Oxide 400 MG TABLET PO (08:41)
[2023-11-19] MEDS: lisinopriL 10 MG TABLET PO (08:41)
--- NOTE | 2023-11-19 09:12 | PM.EVENT ---
Event Note Date of Service: 11/19/23 Event Note: Glucose levels improved. Please continue with current home regimen as ordered. Signing off at this time. Please do not hesitate to reach out for any questions, concerns, or acute medical issues. Time Spent With Patient Time: Total time managing care of this patient today ____ minutes.
--- NOTE | 2023-11-19 09:14 | PC.NURSE ---
Kae refused AM Glargine insulin but accepted oral medications
[2023-11-19 12:57] LABS: Glucose, Whole Blood 274 mg/dL (60-115)
--- NOTE | 2023-11-19 14:44 | P.PNPSI_ITS ---
Subjective Subjective Date of Service: 11/19/23 Reason For Visit: Psychosis Interim History: organized and lucid today. self esteem is very high. says she is sleeping and eating well. no complaints or questions. per staff, taking meds, refusing insulin. disorganized last NOC, partially disrobed in the ervin. Mental Status Exam Mental Status Exam Narrative: adequately dressed and groomed. largely edentulous. cooperative. no PMA/PMR. speech nml rate, decr amount. nml loudness, tone, latency. thoughts more organized and linear today. affect full range, normo-intense, non-labile. mood good. no SI/SIBI/HI/AVH expressed. Diagnostics Vital Signs (24Hr): Vital Signs - 24 hr 11/18/23 19:40 11/18/23 20:15 11/19/23 07:10 Temperature 96.9 F 97.7 F Pulse Rate 75 75 66 Respiratory Rate 16 14 Blood Pressure 159/69 H 159/69 H 130/61 Pulse Oximetry 98 96 Oxygen Delivery Method Room Air Room Air 11/19/23 08:40 11/19/23 08:41 Temperature Pulse Rate 66 Respiratory Rate Blood Pressure 130/61 130/61 Pulse Oximetry Oxygen Delivery Method BMI result Body Mass Index 40.2 Labs 11/16/23 16:26 Labs: Laboratory Results - last 48 hr 11/17/23 11/18/23 11/18/23 17:48 09:02 18:07 POC Glucose 202 H 139 H 257 H 11/18/23 11/19/23 11/19/23 20:00 08:35 12:50 POC Glucose 291 H 99 274 H Medications Medications Current Medications Acetaminophen (Acetaminophen 325 Mg Tablet) 650 mg PO Q6H PRN PRN Reason: Headache/Pain Mild Scale (1-3) Al Hydroxide/Mg Hydroxide (Magnesium Hydrox/Alum Hydrox 30 Ml Oral.Susp) 30 ml PO Q6H PRN PRN Reason: Heartburn/Nausea Divalproex Sodium (Divalproex Sodium 500 Mg Tablet.) 1,500 mg PO DAILY@1800 [facility] Last Admin: 11/18/23 18:22 Dose: 1,500 mg Glucose (Glucose Gel 15 Gm Gel..Gram.) 15 gm PO Q15M PRN; Protocol PRN Reason: per Hypoglycemia Standing Ord. Hydroxyzine HCl (Hydroxyzine Hcl 25 Mg Tablet) 25 mg PO Q6H PRN PRN Reason: Anxiety Last Admin: 11/16/23 21:30 Dose: 25 mg Hydroxyzine HCl (Hydroxyzine Hcl 50 Mg Tablet) 50 mg PO BEDTIME [facility] Last Admin: 11/18/23 20:16 Dose: 50 mg Insulin Glargine (Insulin Glargine,Hum.Rec.Anlog 100 Unit/Ml 10 Ml Vial) 40 unit SUBCUT DAILY [facility] Last Admin: 11/19/23 08:45 Dose: Not Given Insulin Glargine (Insulin Glargine,Hum.Rec.Anlog 100 Unit/Ml 10 Ml Vial) 20 unit SUBCUT BEDTIME [facility] Last Admin: 11/18/23 20:12 Dose: 20 unit Insulin Human Lispro (Insulin Lispro 100 Unit/Ml 3 Ml Vial) 0 unit SUBCUT QIDACHS [facility]; Protocol Last Admin: 11/19/23 13:16 Dose: Not Given Levothyroxine Sodium (Levothyroxine Sodium 125 Mcg Tablet) 125 mcg PO DAILY@0600 [facility] Last Admin: 11/19/23 06:30 Dose: 125 mcg Lisinopril (Lisinopril 10 Mg Tablet) 10 mg PO DAILY [facility]; Protocol Last Admin: 11/19/23 08:41 Dose: 10 mg [place] Carbonate ([place] Carbonate 300 Mg Tablet) 150 mg PO BID [facility] Last Admin: 11/19/23 08:41 Dose: 150 mg Loratadine (Loratadine 10 Mg Tablet) 10 mg PO DAILY PRN PRN Reason: Allergic Reaction Magnesium Hydroxide (Milk Of Magnesia 30 Ml Oral.Susp) 30 ml PO DAILY PRN PRN Reason: Constipation Magnesium Oxide (Magnesium Oxide 400 Mg Tablet) 400 mg PO DAILY [facility] Last Admin: 11/19/23 08:41 Dose: 400 mg Olanzapine (Olanzapine 5 Mg Tablet) 5 mg PO BEDTIME [facility] Last Admin: 11/18/23 20:17 Dose: 5 mg Olanzapine (Olanzapine 5 Mg Tablet) 5 mg PO Q4H PRN PRN Reason: Psychosis Last Admin: 11/15/23 04:57 Dose: 5 mg Propranolol HCl (Propranolol Hcl 40 Mg Tablet) 80 mg PO TID [facility]; Protocol Last Admin: 11/19/23 08:40 Dose: 80 mg Risperidone (Risperidone 1 Mg Tablet) 1 mg PO DAILY [facility] Last Admin: 11/19/23 08:41 Dose: 1 mg Trazodone HCl (Trazodone Hcl 50 Mg Tablet) 50 mg PO BEDTIME MRX1 PRN PRN Reason: Insomnia Last Admin: 11/16/23 21:29 Dose: 50 mg Allergies Allergies Allergy/AdvReac Type Severity Reaction Status Date / Time haloperidol [From Haldol] AdvReac Unknown Verified 10/28/20 06:32 Assessment & Plan Assessment & Plan (1) Schizoaffective disorder, bipolar type: Status: Acute Code(s): F25.0 - Schizoaffective disorder, bipolar type Plan 11/14: continue/restart outpt meds. medical med changes as per hospitalist recommendation. anticipate improvement with presumed Sx attributable to mental illness and lack of compliance with medications. if no improvement as lithium and VPA levels enter therapeutic range, will need to consider delirium as Dx and return to medical w/u for etiology. 11/15: Ammonia level 22 repeat electrolytes continue Depakote olanzapine would benefit from clarification of antipsychotic dosing and response. 11/16: continue current Tx 11/17: no change in presentation. continue current mgmt. 11/18: much more organized and linear, lucid, today. continue current mgmt. Reason for continued inpatient stay Substantial Risk for: inability to function and rapid decompensation Time Spent With Patient Time: Total time managing care of this patient today ____ minutes.
[2023-11-19] MEDS: Divalproex Sodium 500 MG TABLET.DR 1500 MG PO (17:45)
[2023-11-19 17:52] LABS: Glucose, Whole Blood 228 mg/dL (60-115)
--- NOTE | 2023-11-19 19:21 | PC.NURSE ---
refused all insulin
[2023-11-19 21:01] LABS: Glucose, Whole Blood 352 mg/dL (60-115)
[2023-11-19] MEDS: hydrOXYzine HCL 50 MG TABLET PO (21:20)
[2023-11-19] MEDS: OLANZapine 5 MG TABLET PO (21:20)
[2023-11-20 07:54] VITALS: BP 131/74; PULSE 74; RESP 16; TEMP 36.4; O2SAT 94
[2023-11-20 09:35] VITALS: BP 131/74
[2023-11-20] MEDS: Magnesium Oxide 400 MG TABLET PO (09:35)
[2023-11-20] MEDS: lisinopriL 10 MG TABLET PO (09:35)
[2023-11-20 09:36] VITALS: BP 131/74; PULSE 74
[2023-11-20] MEDS: Propranolol HCL 40 MG TABLET 80 MG PO ×2 (09:36→20:57)
[2023-11-20] MEDS: Levothyroxine Sodium 125 MCG TABLET PO (09:36)
[2023-11-20] MEDS: risperiDONE 1 MG TABLET PO (09:36)
[2023-11-20] MEDS: Lithium Carbonate 300 MG TABLET 150 MG PO ×2 (09:36→20:57)
[2023-11-20] MEDS: Insulin Glargine,Hum.rec.anlog 100 UNIT/ML 10 ML VIAL 40 UNIT SUBCUT (11:35)
[2023-11-20 11:43] LABS: Glucose, Whole Blood 285 mg/dL (60-115)
--- NOTE | 2023-11-20 11:56 | HO.PSYCHPN ---
Subjective Subjective Date of Service: 11/20/23 Reason For Visit: Psychosis Interim History: continues clearer. amenable to have insulin. per staff, irritable, refusing insulin, singing loudly. slept 10-4. Mental Status Exam Mental Status Exam Narrative: adequately dressed and groomed. largely edentulous. cooperative. no PMA/PMR. speech nml rate, amount. nml loudness, tone, latency. thoughts more organized and linear today. affect full range, normo-intense, non-labile. mood excellent self esteem. no SI/SIBI/HI/AVH expressed. Diagnostics Vital Signs (24Hr): Vital Signs - 24 hr 11/19/23 15:45 11/19/23 15:46 11/19/23 19:46 Temperature 97.8 F Pulse Rate 50 50 76 Respiratory Rate 18 Blood Pressure 125/58 L 125/58 L 133/70 Pulse Oximetry 97 Oxygen Delivery Method Room Air 11/19/23 21:18 11/20/23 07:54 11/20/23 09:35 Temperature 97.5 F Pulse Rate 80 74 Respiratory Rate 16 Blood Pressure 138/81 131/74 131/74 Pulse Oximetry 94 Oxygen Delivery Method Room Air 11/20/23 09:36 Temperature Pulse Rate 74 Respiratory Rate Blood Pressure 131/74 Pulse Oximetry Oxygen Delivery Method BMI result Body Mass Index 40.2 Labs 11/16/23 16:26 Labs: Laboratory Results - last 48 hr 11/18/23 11/18/23 11/19/23 18:07 20:00 08:35 POC Glucose 257 H 291 H 99 11/19/23 11/19/23 11/19/23 12:50 17:47 20:56 POC Glucose 274 H 228 H 352 H* 11/20/23 11:38 POC Glucose 285 H Medications Medications Current Medications Acetaminophen (Acetaminophen 325 Mg Tablet) 650 mg PO Q6H PRN PRN Reason: Headache/Pain Mild Scale (1-3) Al Hydroxide/Mg Hydroxide (Magnesium Hydrox/Alum Hydrox 30 Ml Oral.Susp) 30 ml PO Q6H PRN PRN Reason: Heartburn/Nausea Divalproex Sodium (Divalproex Sodium 500 Mg Tablet.) 1,500 mg PO DAILY@1800 [facility] Last Admin: 11/19/23 17:45 Dose: 1,500 mg Glucose (Glucose Gel 15 Gm Gel..Gram.) 15 gm PO Q15M PRN; Protocol PRN Reason: per Hypoglycemia Standing Ord. Hydroxyzine HCl (Hydroxyzine Hcl 25 Mg Tablet) 25 mg PO Q6H PRN PRN Reason: Anxiety Last Admin: 11/16/23 21:30 Dose: 25 mg Hydroxyzine HCl (Hydroxyzine Hcl 50 Mg Tablet) 50 mg PO BEDTIME [facility] Last Admin: 11/19/23 21:20 Dose: 50 mg Insulin Glargine (Insulin Glargine,Hum.Rec.Anlog 100 Unit/Ml 10 Ml Vial) 40 unit SUBCUT DAILY [facility] Last Admin: 11/20/23 11:35 Dose: 40 unit Insulin Glargine (Insulin Glargine,Hum.Rec.Anlog 100 Unit/Ml 10 Ml Vial) 20 unit SUBCUT BEDTIME [facility] Last Admin: 11/19/23 22:30 Dose: Not Given Insulin Human Lispro (Insulin Lispro 100 Unit/Ml 3 Ml Vial) 0 unit SUBCUT QIDACHS [facility]; Protocol Last Admin: 11/20/23 09:38 Dose: Not Given Levothyroxine Sodium (Levothyroxine Sodium 125 Mcg Tablet) 125 mcg PO DAILY@0600 [facility] Last Admin: 11/20/23 09:36 Dose: 125 mcg Lisinopril (Lisinopril 10 Mg Tablet) 10 mg PO DAILY [facility]; Protocol Last Admin: 11/20/23 09:35 Dose: 10 mg [place] Carbonate ([place] Carbonate 300 Mg Tablet) 150 mg PO BID [facility] Last Admin: 11/20/23 09:36 Dose: 150 mg Loratadine (Loratadine 10 Mg Tablet) 10 mg PO DAILY PRN PRN Reason: Allergic Reaction Magnesium Hydroxide (Milk Of Magnesia 30 Ml Oral.Susp) 30 ml PO DAILY PRN PRN Reason: Constipation Magnesium Oxide (Magnesium Oxide 400 Mg Tablet) 400 mg PO DAILY [facility] Last Admin: 11/20/23 09:35 Dose: 400 mg Olanzapine (Olanzapine 5 Mg Tablet) 5 mg PO BEDTIME [facility] Last Admin: 11/19/23 21:20 Dose: 5 mg Olanzapine (Olanzapine 5 Mg Tablet) 5 mg PO Q4H PRN PRN Reason: Psychosis Last Admin: 11/15/23 04:57 Dose: 5 mg Propranolol HCl (Propranolol Hcl 40 Mg Tablet) 80 mg PO TID [facility]; Protocol Last Admin: 06/10/24 09:36 Dose: 80 mg Risperidone (Risperidone 1 Mg Tablet) 1 mg PO DAILY [facility] Last Admin: 11/20/23 09:36 Dose: 1 mg Trazodone HCl (Trazodone Hcl 50 Mg Tablet) 50 mg PO BEDTIME MRX1 PRN PRN Reason: Insomnia Last Admin: 11/16/23 21:29 Dose: 50 mg Allergies Allergies Allergy/AdvReac Type Severity Reaction Status Date / Time haloperidol [From Haldol] AdvReac Unknown Verified 10/28/20 06:32 Assessment & Plan Assessment & Plan (1) Schizoaffective disorder, bipolar type: Status: Acute Code(s): F25.0 - Schizoaffective disorder, bipolar type Plan 11/14: continue/restart outpt meds. medical med changes as per hospitalist recommendation. anticipate improvement with presumed Sx attributable to mental illness and lack of compliance with medications. if no improvement as lithium and VPA levels enter therapeutic range, will need to consider delirium as Dx and return to medical w/u for etiology. 11/15: Ammonia level 22 repeat electrolytes continue Depakote olanzapine would benefit from clarification of antipsychotic dosing and response. 11/16: continue current Tx 11/17: no change in presentation. continue current mgmt. 11/18: much more organized and linear, lucid, today. continue current mgmt. 11/19: continue more organized and lucid. restart citalopram/escitalopram. check labs tonight. Reason for continued inpatient stay Substantial Risk for: inability to function and rapid decompensation Time Spent With Patient Time: Total time managing care of this patient today __25__ minutes.
[2023-11-20] MEDS: Insulin Lispro 100 UNIT/ML 3 ML VIAL SUBCUT ×3 (13:08→20:54)
[2023-11-20 14:50] VITALS: BP 124/56; PULSE 79
[2023-11-20 18:03] LABS: Glucose, Whole Blood 369 mg/dL (60-115)
[2023-11-20] MEDS: Divalproex Sodium 500 MG TABLET.DR 1500 MG PO (18:40)
[2023-11-20 19:51] LABS: MANUAL DIFF FLAG NO
[2023-11-20 19:53] LABS: Basophils Percent Auto 0.4 % (0-2); Eosinophils Absolute Auto 0.1 X10*3/uL (0.0-0.4); Eosinophils Percent Auto 2.9 % (0-4); Hematocrit 39.4 % (37.0-47.0); Hemoglobin 13.2 g/dl (12.0-16.0); Imm Gran Abs Auto 0.01 X10*3/uL (0.00-0.03); Imm Gran Pct Auto 0.2 % (0.0-0.4); Lymphocytes Absolute Auto 1.7 X10*3/uL (1.2-4.9); Mean Corpuscular HGB Conc 33.5 g/dl (31.0-35.0); Mean Corpuscular Hemoglobin 29.2 pg (27.0-33.0); Mean Corpuscular Volume 87.2 fL (80.0-98.0); Mean Platelet Volume 9.4 fL (9.4-12.3); Monocytes Absolute Auto 0.5 X10*3/uL (0.1-1.2); Monocytes Percent Auto 11.5 % (2-11); Neutrophils Absolute Auto 2.2 x10*3/uL (2.0-8.3); Platelet Count 181 X10*3/uL (160-400); Red Blood Count 4.52 X10*6/uL (4.20-5.50); Red Cell Distribution Width 13.6 % (11.0-16.0); White Blood Count 4.5 X10*3/uL (4.8-10.8)
[2023-11-20 20:07] LABS: Valproate 18.8 mcg/mL (50.0-100.0)
[2023-11-20 20:23] LABS: Alanine Aminotransferase 21 U/L (0-31); Albumin Level 3.8 g/dL (3.5-5.0); Alkaline Phosphatase 115 U/L (39-117); Anion Gap 18 (12-20); Aspartate Amino Transferase 11 U/L (5-31); Bilirubin Direct < 0.2 mg/dL (0.0-0.5); Bilirubin Total 0.2 mg/dL (0.0-1.0); Blood Urea Nitrogen 19 mg/dL (9-16); Carbon Dioxide 26 mmol/L (22-29); Chloride 100 mmol/L (96-108); Creatinine Clr Calc Pharmacy 66.9; Estimated Glomerular Filt Rate > 60; Glucose Random 456 mg/dL (60-115); Potassium 4.8 mmol/L (3.3-5.1); Sodium 139 mmol/L (135-145); Total Protein 6.4 g/dL (6.5-8.0)
--- NOTE | 2023-11-20 20:28 | PC.NURSE ---
POC via lab 456. CAW aware.
[2023-11-20 20:30] VITALS: BP 142/80; PULSE 80; RESP 16; TEMP 36.6; O2SAT 95
--- NOTE | 2023-11-20 20:41 | PC.NURSE ---
hospitalist notified of poc
[2023-11-20] MEDS: Insulin Glargine,Hum.rec.anlog 100 UNIT/ML 10 ML VIAL 20 UNIT SUBCUT (20:55)
[2023-11-20 20:57] VITALS: BP 142/80; PULSE 80
[2023-11-20] MEDS: hydrOXYzine HCL 50 MG TABLET PO (20:57)
[2023-11-20] MEDS: OLANZapine 5 MG TABLET PO (20:58)
--- NOTE | 2023-11-20 21:03 | PC.NURSE ---
per hspitalist give HS lantus and lispro 12units per sliding scale. t/w was able to administer insulin as she feels comfortable with a female staff she had previously met when on the [facility] floor [facility]. at this time agrees to have POC re check in 1 hour.
[2023-11-20 22:18] LABS: Glucose, Whole Blood 424 mg/dL (60-115)
[2023-11-21] VITALS (7 sets, daily range): BP systolic 112–169; BP diastolic 60–78; PULSE 74–93; RESP 14–16; TEMP 36.8–36.9; O2SAT 95–97
--- NOTE | 2023-11-21 00:38 | PC.NURSE ---
refusing repeat POC. hospitalist notified.
--- NOTE | 2023-11-21 00:54 | PC.NURSE ---
POC was rechecked at 2220, 424, hospitalist was notified at that time. requested recheck in 2 hours. refused that POC. hospitalist was notified.
[2023-11-21] MEDS: Levothyroxine Sodium 125 MCG TABLET PO (06:41)
[2023-11-21 06:55] LABS: Glucose, Whole Blood 191 mg/dL (60-115)
[2023-11-21 08:22] LABS: Glucose, Whole Blood 197 mg/dL (60-115)
[2023-11-21] MEDS: Propranolol HCL 40 MG TABLET 80 MG PO ×3 (08:40→21:38)
[2023-11-21] MEDS: Lithium Carbonate 300 MG TABLET 150 MG PO ×2 (08:40→21:37)
[2023-11-21] MEDS: Magnesium Oxide 400 MG TABLET PO (08:40)
[2023-11-21] MEDS: lisinopriL 10 MG TABLET PO (08:41)
[2023-11-21] MEDS: Escitalopram Oxalate 5 MG TABLET PO (08:41)
[2023-11-21] MEDS: risperiDONE 1 MG TABLET PO (08:41)
--- NOTE | 2023-11-21 09:19 | HO.PSYCHPN ---
Subjective Subjective Date of Service: 11/21/23 Reason For Visit: Psychosis Subjective Notes: Conditional Voluntary Interim History: Pt slept all night. She declines POC. She is taking medications. She is in bed, refused to speak with this sba underwriter, stating go away, I don't need to talk She appears internally preoccupied. She has been mostly in bed, not interacting with peers or staff. Diagnostics Vital Signs (24Hr): Vital Signs - 24 hr 11/20/23 09:35 11/20/23 09:36 11/20/23 14:50 Temperature Pulse Rate 74 79 Respiratory Rate Blood Pressure 131/74 131/74 124/56 L Pulse Oximetry Oxygen Delivery Method 11/20/23 20:30 11/20/23 20:57 11/21/23 07:20 Temperature 97.8 F 98.2 F Pulse Rate 80 80 78 Respiratory Rate 16 14 Blood Pressure 142/80 H 142/80 H 139/69 Pulse Oximetry 95 97 Oxygen Delivery Method Room Air Room Air 11/21/23 08:40 11/21/23 08:41 Temperature Pulse Rate 78 Respiratory Rate Blood Pressure 139/69 139/69 Pulse Oximetry Oxygen Delivery Method BMI result Body Mass Index 40.2 Labs 11/20/23 19:44 11/20/23 19:44 Labs: Laboratory Results - last 48 hr 11/19/23 11/19/23 11/19/23 12:50 17:47 20:56 WBC RBC Hgb Hct MCV MCH MCHC RDW Plt Count MPV Immature Gran % (Auto) Neut % (Auto) Lymph % (Auto) [place] % (Auto) Eos % (Auto) Baso % (Auto) Lymph # (Auto) [place] # (Auto) Eos # (Auto) Baso # (Auto) Abs Immat Gran (auto) Absolute Neuts (auto) Absolute Nucleated RBC Nucleated RBC % (auto) Sodium Potassium Chloride Carbon Dioxide Anion Gap BUN Creatinine Estim Creat Clear Calc Estimated GFR POC Glucose 274 H 228 H 352 H* Random Glucose Calcium Total Bilirubin Direct Bilirubin AST ALT Alkaline Phosphatase Total Protein Albumin Valproic Acid [place] 11/20/23 11/20/23 11/20/23 11:38 17:58 19:44 WBC 4.5 L RBC 4.52 Hgb 13.2 Hct 39.4 MCV 87.2 MCH 29.2 MCHC 33.5 RDW 13.6 Plt Count 181 MPV 9.4 Immature Gran % (Auto) 0.2 Neut % (Auto) 48.0 Lymph % (Auto) 37.0 [place] % (Auto) 11.5 H Eos % (Auto) 2.9 Baso % (Auto) 0.4 Lymph # (Auto) 1.7 [place] # (Auto) 0.5 Eos # (Auto) 0.1 Baso # (Auto) 0.0 Abs Immat Gran (auto) 0.01 Absolute Neuts (auto) 2.2 Absolute Nucleated RBC 0.000 Nucleated RBC % (auto) 0.0 Sodium 139 Potassium 4.8 Chloride 100 Carbon Dioxide 26 Anion Gap 18 BUN 19 H Creatinine 0.89 Estim Creat Clear Calc 66.9 Estimated GFR > 60 POC Glucose 285 H 369 H* Random Glucose 456 H* Calcium 10.0 D Total Bilirubin 0.2 Direct Bilirubin < 0.2 AST 11 ALT 21 Alkaline Phosphatase 115 Total Protein 6.4 L Albumin 3.8 Valproic Acid 18.8 L [place] 0.40 L 11/20/23 11/21/23 11/21/23 22:09 06:47 08:06 WBC RBC Hgb Hct MCV MCH MCHC RDW Plt Count MPV Immature Gran % (Auto) Neut % (Auto) Lymph % (Auto) [place] % (Auto) Eos % (Auto) Baso % (Auto) Lymph # (Auto) [place] # (Auto) Eos # (Auto) Baso # (Auto) Abs Immat Gran (auto) Absolute Neuts (auto) Absolute Nucleated RBC Nucleated RBC % (auto) Sodium Potassium Chloride Carbon Dioxide Anion Gap BUN Creatinine Estim Creat Clear Calc Estimated GFR POC Glucose 424 H* 191 H 197 H Random Glucose Calcium Total Bilirubin Direct Bilirubin AST ALT Alkaline Phosphatase Total Protein Albumin Valproic Acid [place] Medications Medications Current Medications Acetaminophen (Acetaminophen 325 Mg Tablet) 650 mg PO Q6H PRN PRN Reason: Headache/Pain Mild Scale (1-3) Al Hydroxide/Mg Hydroxide (Magnesium Hydrox/Alum Hydrox 30 Ml Oral.Susp) 30 ml PO Q6H PRN PRN Reason: Heartburn/Nausea Divalproex Sodium (Divalproex Sodium 500 Mg Tablet.) 1,500 mg PO DAILY@1800 [facility] Last Admin: 11/20/23 18:40 Dose: 1,500 mg Escitalopram Oxalate (Escitalopram Oxalate 5 Mg Tablet) 5 mg PO DAILY [facility] Last Admin: 11/21/23 08:41 Dose: 5 mg Glucose (Glucose Gel 15 Gm Gel..Gram.) 15 gm PO Q15M PRN; Protocol PRN Reason: per Hypoglycemia Standing Ord. Hydroxyzine HCl (Hydroxyzine Hcl 25 Mg Tablet) 25 mg PO Q6H PRN PRN Reason: Anxiety Last Admin: 11/16/23 21:30 Dose: 25 mg Hydroxyzine HCl (Hydroxyzine Hcl 50 Mg Tablet) 50 mg PO BEDTIME [facility] Last Admin: 11/20/23 20:57 Dose: 50 mg Insulin Glargine (Insulin Glargine,Hum.Rec.Anlog 100 Unit/Ml 10 Ml Vial) 40 unit SUBCUT DAILY [facility] Last Admin: 11/20/23 11:35 Dose: 40 unit Insulin Glargine (Insulin Glargine,Hum.Rec.Anlog 100 Unit/Ml 10 Ml Vial) 20 unit SUBCUT BEDTIME [facility] Last Admin: 11/20/23 20:55 Dose: 20 unit Insulin Human Lispro (Insulin Lispro 100 Unit/Ml 3 Ml Vial) 0 unit SUBCUT QIDACHS [facility]; Protocol Last Admin: 11/20/23 20:54 Dose: 12 unit Levothyroxine Sodium (Levothyroxine Sodium 125 Mcg Tablet) 125 mcg PO DAILY@0600 [facility] Last Admin: 11/21/23 06:41 Dose: 125 mcg Lisinopril (Lisinopril 10 Mg Tablet) 10 mg PO DAILY [facility]; Protocol Last Admin: 11/21/23 08:41 Dose: 10 mg [place] Carbonate ([place] Carbonate 300 Mg Tablet) 150 mg PO BID [facility] Last Admin: 11/21/23 08:40 Dose: 150 mg Loratadine (Loratadine 10 Mg Tablet) 10 mg PO DAILY PRN PRN Reason: Allergic Reaction Magnesium Hydroxide (Milk Of Magnesia 30 Ml Oral.Susp) 30 ml PO DAILY PRN PRN Reason: Constipation Magnesium Oxide (Magnesium Oxide 400 Mg Tablet) 400 mg PO DAILY [facility] Last Admin: 11/21/23 08:40 Dose: 400 mg Olanzapine (Olanzapine 5 Mg Tablet) 5 mg PO BEDTIME [facility] Last Admin: 11/20/23 20:58 Dose: 5 mg Olanzapine (Olanzapine 5 Mg Tablet) 5 mg PO Q4H PRN PRN Reason: Psychosis Last Admin: 11/15/23 04:57 Dose: 5 mg Propranolol HCl (Propranolol Hcl 40 Mg Tablet) 80 mg PO TID [facility]; Protocol Last Admin: 11/21/23 08:40 Dose: 80 mg Risperidone (Risperidone 1 Mg Tablet) 1 mg PO DAILY [facility] Last Admin: 11/21/23 08:41 Dose: 1 mg Trazodone HCl (Trazodone Hcl 50 Mg Tablet) 50 mg PO BEDTIME MRX1 PRN PRN Reason: Insomnia Last Admin: 11/16/23 21:29 Dose: 50 mg Allergies Allergies Allergy/AdvReac Type Severity Reaction Status Date / Time haloperidol [From Haldol] AdvReac Unknown Verified 10/28/20 06:32 Assessment & Plan Assessment & Plan (1) Schizoaffective disorder, bipolar type: Status: Acute Code(s): F25.0 - Schizoaffective disorder, bipolar type Plan 11/14: continue/restart outpt meds. medical med changes as per hospitalist recommendation. anticipate improvement with presumed Sx attributable to mental illness and lack of compliance with medications. if no improvement as lithium and VPA levels enter therapeutic range, will need to consider delirium as Dx and return to medical w/u for etiology. 11/15: Ammonia level 22 repeat electrolytes continue Depakote olanzapine would benefit from clarification of antipsychotic dosing and response. 11/16: continue current Tx 11/17: no change in presentation. continue current mgmt. 11/18: much more organized and linear, lucid, today. continue current mgmt. 11/19: continue more organized and lucid. restart citalopram/escitalopram. check labs tonight. 11/20 continue tx. may benefit from increase in risperidone. Reason for continued inpatient stay Substantial Risk for: inability to function Time Spent With Patient Time: Total time managing care of this patient today ____ minutes.
[2023-11-21] MEDS: Insulin Glargine,Hum.rec.anlog 100 UNIT/ML 10 ML VIAL 40 UNIT SUBCUT (09:27)
[2023-11-21] MEDS: Insulin Lispro 100 UNIT/ML 3 ML VIAL SUBCUT ×2 (09:27→18:17)
[2023-11-21 17:30] LABS: Glucose, Whole Blood 219 mg/dL (60-115)
[2023-11-21] MEDS: Divalproex Sodium 500 MG TABLET.DR 1500 MG PO (18:17)
[2023-11-21 21:32] LABS: Glucose, Whole Blood 292 mg/dL (60-115)
[2023-11-21] MEDS: hydrOXYzine HCL 50 MG TABLET PO (21:38)
[2023-11-21] MEDS: OLANZapine 5 MG TABLET PO (21:38)
[2023-11-22] MEDS: Levothyroxine Sodium 125 MCG TABLET PO (06:51)
[2023-11-22 07:58] VITALS: BP 129/54; PULSE 68; RESP 18; TEMP 36.3; O2SAT 99
[2023-11-22 08:17] LABS: Glucose, Whole Blood 155 mg/dL (60-115)
[2023-11-22] MEDS: Insulin Lispro 100 UNIT/ML 3 ML VIAL SUBCUT ×3 (09:52→18:04)
[2023-11-22] MEDS: Escitalopram Oxalate 5 MG TABLET PO (09:54)
[2023-11-22] MEDS: Lithium Carbonate 300 MG TABLET 150 MG PO ×2 (09:55→21:20)
[2023-11-22] MEDS: Magnesium Oxide 400 MG TABLET PO (09:55)
[2023-11-22] MEDS: risperiDONE 1 MG TABLET PO (09:58)
[2023-11-22 09:59] VITALS: BP 129/59
[2023-11-22] MEDS: lisinopriL 10 MG TABLET PO (09:59)
[2023-11-22 10:00] VITALS: BP 129/59; PULSE 68
[2023-11-22] MEDS: Propranolol HCL 40 MG TABLET 80 MG PO ×2 (10:00→15:46)
[2023-11-22] MEDS: Insulin Glargine,Hum.rec.anlog 100 UNIT/ML 10 ML VIAL 40 UNIT SUBCUT (10:02)
[2023-11-22 13:06] LABS: Glucose, Whole Blood 232 mg/dL (60-115)
--- NOTE | 2023-11-22 15:45 | P.PNPSI_ITS ---
Subjective Subjective Date of Service: 11/22/23 Reason For Visit: Psychosis Interim History: lying in bed. organized, linear, able to sign CV. amenable to increase lithium/VPA. per staff, irritable. taking meds. labile, guarded. +RIS. flat, withdrawn. slept about 8 hours. Mental Status Exam Mental Status Exam Narrative: adequately dressed and groomed. largely edentulous. cooperative. no PMA/PMR. speech nml rate, amount. nml loudness, tone, latency. thoughts organized and linear today. affect full range, normo-intense, non-labile. mood euthymic. no SI/SIBI/HI/AVH expressed. Diagnostics Vital Signs (24Hr): Vital Signs - 24 hr 11/21/23 20:00 11/21/23 21:42 11/22/23 07:58 Temperature 98.4 F 97.4 F Pulse Rate 93 68 Respiratory Rate 16 18 Blood Pressure 112/60 128/70 129/54 L Pulse Oximetry 95 99 Oxygen Delivery Method Room Air Room Air 11/22/23 09:59 11/22/23 10:00 Temperature Pulse Rate 68 Respiratory Rate Blood Pressure 129/59 L 129/59 L Pulse Oximetry Oxygen Delivery Method BMI result Body Mass Index 40.2 Labs 11/20/23 19:44 11/20/23 19:44 Labs: Laboratory Results - last 48 hr 11/20/23 11/20/23 11/20/23 17:58 19:44 22:09 WBC 4.5 L RBC 4.52 Hgb 13.2 Hct 39.4 MCV 87.2 MCH 29.2 MCHC 33.5 RDW 13.6 Plt Count 181 MPV 9.4 Immature Gran % (Auto) 0.2 Neut % (Auto) 48.0 Lymph % (Auto) 37.0 [place] % (Auto) 11.5 H Eos % (Auto) 2.9 Baso % (Auto) 0.4 Lymph # (Auto) 1.7 [place] # (Auto) 0.5 Eos # (Auto) 0.1 Baso # (Auto) 0.0 Abs Immat Gran (auto) 0.01 Absolute Neuts (auto) 2.2 Absolute Nucleated RBC 0.000 Nucleated RBC % (auto) 0.0 Sodium 139 Potassium 4.8 Chloride 100 Carbon Dioxide 26 Anion Gap 18 BUN 19 H Creatinine 0.89 Estim Creat Clear Calc 66.9 Estimated GFR > 60 POC Glucose 369 H* 424 H* Random Glucose 456 H* Calcium 10.0 D Total Bilirubin 0.2 Direct Bilirubin < 0.2 AST 11 ALT 21 Alkaline Phosphatase 115 Total Protein 6.4 L Albumin 3.8 Valproic Acid 18.8 L [place] 0.40 L 11/21/23 11/21/23 11/21/23 06:47 08:06 17:26 WBC RBC Hgb Hct MCV MCH MCHC RDW Plt Count MPV Immature Gran % (Auto) Neut % (Auto) Lymph % (Auto) [place] % (Auto) Eos % (Auto) Baso % (Auto) Lymph # (Auto) [place] # (Auto) Eos # (Auto) Baso # (Auto) Abs Immat Gran (auto) Absolute Neuts (auto) Absolute Nucleated RBC Nucleated RBC % (auto) Sodium Potassium Chloride Carbon Dioxide Anion Gap BUN Creatinine Estim Creat Clear Calc Estimated GFR POC Glucose 191 H 197 H 219 H Random Glucose Calcium Total Bilirubin Direct Bilirubin AST ALT Alkaline Phosphatase Total Protein Albumin Valproic Acid [place] 11/21/23 11/22/23 11/22/23 21:27 08:11 13:02 WBC RBC Hgb Hct MCV MCH MCHC RDW Plt Count MPV Immature Gran % (Auto) Neut % (Auto) Lymph % (Auto) [place] % (Auto) Eos % (Auto) Baso % (Auto) Lymph # (Auto) [place] # (Auto) Eos # (Auto) Baso # (Auto) Abs Immat Gran (auto) Absolute Neuts (auto) Absolute Nucleated RBC Nucleated RBC % (auto) Sodium Potassium Chloride Carbon Dioxide Anion Gap BUN Creatinine Estim Creat Clear Calc Estimated GFR POC Glucose 292 H 155 H 232 H Random Glucose Calcium Total Bilirubin Direct Bilirubin AST ALT Alkaline Phosphatase Total Protein Albumin Valproic Acid [place] Medications Medications Current Medications Acetaminophen (Acetaminophen 325 Mg Tablet) 650 mg PO Q6H PRN PRN Reason: Headache/Pain Mild Scale (1-3) Al Hydroxide/Mg Hydroxide (Magnesium Hydrox/Alum Hydrox 30 Ml Oral.Susp) 30 ml PO Q6H PRN PRN Reason: Heartburn/Nausea Divalproex Sodium (Divalproex Sodium 500 Mg Tablet.) 2,000 mg PO DAILY@1800 [facility] Escitalopram Oxalate (Escitalopram Oxalate 5 Mg Tablet) 5 mg PO DAILY [facility] Last Admin: 11/22/23 09:54 Dose: 5 mg Glucose (Glucose Gel 15 Gm Gel..Gram.) 15 gm PO Q15M PRN; Protocol PRN Reason: per Hypoglycemia Standing Ord. Hydroxyzine HCl (Hydroxyzine Hcl 25 Mg Tablet) 25 mg PO Q6H PRN PRN Reason: Anxiety Last Admin: 11/16/23 21:30 Dose: 25 mg Hydroxyzine HCl (Hydroxyzine Hcl 50 Mg Tablet) 50 mg PO BEDTIME [facility] Last Admin: 11/21/23 21:38 Dose: 50 mg Insulin Glargine (Insulin Glargine,Hum.Rec.Anlog 100 Unit/Ml 10 Ml Vial) 40 unit SUBCUT DAILY [facility] Last Admin: 11/22/23 10:02 Dose: 40 unit Insulin Glargine (Insulin Glargine,Hum.Rec.Anlog 100 Unit/Ml 10 Ml Vial) 20 unit SUBCUT BEDTIME [facility] Last Admin: 11/21/23 21:40 Dose: Not Given Insulin Human Lispro (Insulin Lispro 100 Unit/Ml 3 Ml Vial) 0 unit SUBCUT QIDACHS [facility]; Protocol Last Admin: 11/22/23 13:18 Dose: 6 unit Levothyroxine Sodium (Levothyroxine Sodium 125 Mcg Tablet) 125 mcg PO DAILY@0600 [facility] Last Admin: 11/22/23 06:51 Dose: 125 mcg Lisinopril (Lisinopril 10 Mg Tablet) 10 mg PO DAILY [facility]; Protocol Last Admin: 11/22/23 09:59 Dose: 10 mg [place] Carbonate ([place] Carbonate 300 Mg Tablet) 150 mg PO BID [facility] Last Admin: 11/22/23 09:55 Dose: 150 mg Loratadine (Loratadine 10 Mg Tablet) 10 mg PO DAILY PRN PRN Reason: Allergic Reaction Magnesium Hydroxide (Milk Of Magnesia 30 Ml Oral.Susp) 30 ml PO DAILY PRN PRN Reason: Constipation Magnesium Oxide (Magnesium Oxide 400 Mg Tablet) 400 mg PO DAILY [facility] Last Admin: 11/22/23 09:55 Dose: 400 mg Olanzapine (Olanzapine 5 Mg Tablet) 5 mg PO BEDTIME [facility] Last Admin: 11/21/23 21:38 Dose: 5 mg Olanzapine (Olanzapine 5 Mg Tablet) 5 mg PO Q4H PRN PRN Reason: Psychosis Last Admin: 11/15/23 04:57 Dose: 5 mg Propranolol HCl (Propranolol Hcl 40 Mg Tablet) 80 mg PO TID [facility]; Protocol Last Admin: 11/22/23 10:00 Dose: 80 mg Risperidone (Risperidone 1 Mg Tablet) 1 mg PO DAILY [facility] Last Admin: 11/22/23 09:58 Dose: 1 mg Trazodone HCl (Trazodone Hcl 50 Mg Tablet) 50 mg PO BEDTIME MRX1 PRN PRN Reason: Insomnia Last Admin: 11/16/23 21:29 Dose: 50 mg Allergies Allergies Allergy/AdvReac Type Severity Reaction Status Date / Time haloperidol [From Haldol] AdvReac Unknown Verified 10/28/20 06:32 Assessment & Plan Assessment & Plan (1) Schizoaffective disorder, bipolar type: Status: Acute Code(s): F25.0 - Schizoaffective disorder, bipolar type Plan 11/14: continue/restart outpt meds. medical med changes as per hospitalist recommendation. anticipate improvement with presumed Sx attributable to mental illness and lack of compliance with medications. if no improvement as lithium and VPA levels enter therapeutic range, will need to consider delirium as Dx and return to medical w/u for etiology. 11/15: Ammonia level 22 repeat electrolytes continue Depakote olanzapine would benefit from clarification of antipsychotic dosing and response. 11/16: continue current Tx 11/17: no change in presentation. continue current mgmt. 11/18: much more organized and linear, lucid, today. continue current mgmt. 11/19: continue more organized and lucid. restart citalopram/escitalopram. check labs tonight. 11/20 continue tx. may benefit from increase in risperidone. 11/21: VPA level 18.8 on 11/19, lithium 0.4. increase VPA dosing from 1500 mg to 2000 mg daily. linear, organized, signed CV today. Reason for continued inpatient stay Substantial Risk for: inability to function and rapid decompensation Time Spent With Patient Time: Total time managing care of this patient today ___35_ minutes.
[2023-11-22 15:46] VITALS: BP 131/62; PULSE 78
[2023-11-22 17:39] LABS: Glucose, Whole Blood 250 mg/dL (60-115)
[2023-11-22] MEDS: Divalproex Sodium 500 MG TABLET.DR 2000 MG PO (18:07)
[2023-11-22 21:00] LABS: Glucose, Whole Blood 226 mg/dL (60-115)
[2023-11-22 21:15] VITALS: RESP 16
[2023-11-22] MEDS: hydrOXYzine HCL 50 MG TABLET PO (21:20)
[2023-11-22] MEDS: OLANZapine 5 MG TABLET PO (21:20)
[2023-11-23] MEDS: Levothyroxine Sodium 125 MCG TABLET PO (06:41)
[2023-11-23 07:46] VITALS: BP 131/60; PULSE 69; RESP 16; TEMP 36.7; O2SAT 95
[2023-11-23 08:23] LABS: Glucose, Whole Blood 164 mg/dL (60-115)
[2023-11-23] MEDS: Insulin Glargine,Hum.rec.anlog 100 UNIT/ML 10 ML VIAL 40 UNIT SUBCUT (09:29)
[2023-11-23] MEDS: Insulin Lispro 100 UNIT/ML 3 ML VIAL SUBCUT (09:32)
[2023-11-23 09:33] VITALS: BP 131/60; PULSE 69
[2023-11-23] MEDS: Propranolol HCL 40 MG TABLET 80 MG PO ×3 (09:33→22:16)
[2023-11-23] MEDS: Escitalopram Oxalate 5 MG TABLET PO (09:35)
[2023-11-23] MEDS: risperiDONE 1 MG TABLET PO (09:37)
[2023-11-23] MEDS: Magnesium Oxide 400 MG TABLET PO (09:37)
[2023-11-23 09:38] VITALS: BP 131/60
[2023-11-23] MEDS: Lithium Carbonate 300 MG TABLET 150 MG PO ×2 (09:38→22:15)
[2023-11-23] MEDS: lisinopriL 10 MG TABLET PO (09:38)
[2023-11-23 12:42] LABS: Glucose, Whole Blood 246 mg/dL (60-115)
[2023-11-23 12:57] VITALS: BMI 40.1
--- NOTE | 2023-11-23 13:19 | P.PNPSI_ITS ---
Subjective Subjective Date of Service: 11/23/23 Reason For Visit: Psychosis Interim History: lying in bed singing. calm, cooperative, pleasant. feeling well, somewhat delusional but also able to be tethered to reality (ie, talking about going home to her [place], but on being challenged acknowledging she lives at [facility] in [place]). no questions or complaints otherwise. per staff, taking meds. less singing, smiley. refusing insulin, +RIS. slept 8 hours. Mental Status Exam Mental Status Exam Narrative: adequately dressed and groomed. largely edentulous. cooperative. no PMA/PMR. speech nml rate, amount. nml loudness, tone, latency. thoughts organized and linear today, some fanciful material. affect full range, normo-intense, non- labile. mood euthymic. no SI/SIBI/HI/AVH expressed. Diagnostics Vital Signs (24Hr): Vital Signs - 24 hr 11/22/23 15:46 11/22/23 21:15 11/23/23 07:46 Temperature 98.1 F Pulse Rate 78 69 Respiratory Rate 16 16 Blood Pressure 131/62 131/60 Pulse Oximetry 95 Oxygen Delivery Method Room Air 11/23/23 09:33 11/23/23 09:38 Temperature Pulse Rate 69 Respiratory Rate Blood Pressure 131/60 131/60 Pulse Oximetry Oxygen Delivery Method BMI result Body Mass Index 40.1 Labs 11/20/23 19:44 11/20/23 19:44 Labs: Laboratory Results - last 48 hr 11/21/23 11/21/23 11/22/23 17:26 21:27 08:11 POC Glucose 219 H 292 H 155 H 11/22/23 11/22/23 11/22/23 13:02 17:35 20:45 POC Glucose 232 H 250 H 226 H 11/23/23 11/23/23 08:19 12:38 POC Glucose 164 H 246 H Medications Medications Current Medications Acetaminophen (Acetaminophen 325 Mg Tablet) 650 mg PO Q6H PRN PRN Reason: Headache/Pain Mild Scale (1-3) Al Hydroxide/Mg Hydroxide (Magnesium Hydrox/Alum Hydrox 30 Ml Oral.Susp) 30 ml PO Q6H PRN PRN Reason: Heartburn/Nausea Divalproex Sodium (Divalproex Sodium 500 Mg Tablet.) 2,000 mg PO DAILY@1800 [facility] Last Admin: 11/22/23 18:07 Dose: 2,000 mg Escitalopram Oxalate (Escitalopram Oxalate 5 Mg Tablet) 5 mg PO DAILY [facility] Last Admin: 11/23/23 09:35 Dose: 5 mg Glucose (Glucose Gel 15 Gm Gel..Gram.) 15 gm PO Q15M PRN; Protocol PRN Reason: per Hypoglycemia Standing Ord. Hydroxyzine HCl (Hydroxyzine Hcl 25 Mg Tablet) 25 mg PO Q6H PRN PRN Reason: Anxiety Last Admin: 11/16/23 21:30 Dose: 25 mg Hydroxyzine HCl (Hydroxyzine Hcl 50 Mg Tablet) 50 mg PO BEDTIME [facility] Last Admin: 11/22/23 21:20 Dose: 50 mg Insulin Glargine (Insulin Glargine,Hum.Rec.Anlog 100 Unit/Ml 10 Ml Vial) 40 unit SUBCUT DAILY [facility] Last Admin: 11/23/23 09:29 Dose: 40 unit Insulin Glargine (Insulin Glargine,Hum.Rec.Anlog 100 Unit/Ml 10 Ml Vial) 20 unit SUBCUT BEDTIME [facility] Last Admin: 11/22/23 21:23 Dose: Not Given Insulin Human Lispro (Insulin Lispro 100 Unit/Ml 3 Ml Vial) 0 unit SUBCUT QIDACHS [facility]; Protocol Last Admin: 11/23/23 09:32 Dose: 4 unit Levothyroxine Sodium (Levothyroxine Sodium 125 Mcg Tablet) 125 mcg PO DAILY@0600 [facility] Last Admin: 11/23/23 06:41 Dose: 125 mcg Lisinopril (Lisinopril 10 Mg Tablet) 10 mg PO DAILY [facility]; Protocol Last Admin: 11/23/23 09:38 Dose: 10 mg [place] Carbonate ([place] Carbonate 300 Mg Tablet) 150 mg PO BID [facility] Last Admin: 11/23/23 09:38 Dose: 150 mg Loratadine (Loratadine 10 Mg Tablet) 10 mg PO DAILY PRN PRN Reason: Allergic Reaction Magnesium Hydroxide (Milk Of Magnesia 30 Ml Oral.Susp) 30 ml PO DAILY PRN PRN Reason: Constipation Magnesium Oxide (Magnesium Oxide 400 Mg Tablet) 400 mg PO DAILY [facility] Last Admin: 11/23/23 09:37 Dose: 400 mg Olanzapine (Olanzapine 5 Mg Tablet) 5 mg PO BEDTIME [facility] Last Admin: 11/22/23 21:20 Dose: 5 mg Olanzapine (Olanzapine 5 Mg Tablet) 5 mg PO Q4H PRN PRN Reason: Psychosis Last Admin: 11/15/23 04:57 Dose: 5 mg Propranolol HCl (Propranolol Hcl 40 Mg Tablet) 80 mg PO TID [facility]; Protocol Last Admin: 11/23/23 09:33 Dose: 80 mg Risperidone (Risperidone 1 Mg Tablet) 1 mg PO DAILY [facility] Last Admin: 11/23/23 09:37 Dose: 1 mg Trazodone HCl (Trazodone Hcl 50 Mg Tablet) 50 mg PO BEDTIME MRX1 PRN PRN Reason: Insomnia Last Admin: 11/16/23 21:29 Dose: 50 mg Allergies Allergies Allergy/AdvReac Type Severity Reaction Status Date / Time haloperidol [From Haldol] AdvReac Unknown Verified 10/28/20 06:32 Assessment & Plan Assessment & Plan (1) Schizoaffective disorder, bipolar type: Status: Acute Code(s): F25.0 - Schizoaffective disorder, bipolar type Plan 11/14: continue/restart outpt meds. medical med changes as per hospitalist recommendation. anticipate improvement with presumed Sx attributable to mental illness and lack of compliance with medications. if no improvement as lithium and VPA levels enter therapeutic range, will need to consider delirium as Dx and return to medical w/u for etiology. 11/15: Ammonia level 22 repeat electrolytes continue Depakote olanzapine would benefit from clarification of antipsychotic dosing and response. 11/16: continue current Tx 11/17: no change in presentation. continue current mgmt. 11/18: much more organized and linear, lucid, today. continue current mgmt. 11/19: continue more organized and lucid. restart citalopram/escitalopram. check labs tonight. 11/20 continue tx. may benefit from increase in risperidone. 11/21: VPA level 18.8 on 11/19, lithium 0.4. increase VPA dosing from 1500 mg to 2000 mg daily. linear, organized, signed CV today. 11/22: continues more organized and reality-based. continue current mgmt. Reason for continued inpatient stay Substantial Risk for: inability to function and rapid decompensation Time Spent With Patient Time: Total time managing care of this patient today __25__ minutes.
[2023-11-23 14:47] VITALS: BP 129/60; PULSE 74; O2SAT 94
[2023-11-23 14:48] VITALS: BP 129/60; PULSE 74
[2023-11-23] MEDS: Divalproex Sodium 500 MG TABLET.DR 2000 MG PO (18:45)
[2023-11-23 21:45] VITALS: BP 114/53; PULSE 69; RESP 16; TEMP 36.6; O2SAT 94
[2023-11-23] MEDS: hydrOXYzine HCL 50 MG TABLET PO (22:15)
[2023-11-23] MEDS: OLANZapine 5 MG TABLET PO (22:15)
[2023-11-24] MEDS: Levothyroxine Sodium 125 MCG TABLET PO (06:36)
[2023-11-24 07:15] VITALS: BP 132/57; PULSE 124; RESP 16; TEMP 36.4; O2SAT 93
[2023-11-24 08:00] VITALS: BP 132/57; PULSE 124; RESP 18; TEMP 36.6; O2SAT 93
[2023-11-24 08:11] LABS: Glucose, Whole Blood 254 mg/dL (60-115)
[2023-11-24] MEDS: Escitalopram Oxalate 5 MG TABLET PO (09:02)
[2023-11-24 09:03] VITALS: BP 132/57; PULSE 124
[2023-11-24] MEDS: lisinopriL 10 MG TABLET PO (09:03)
[2023-11-24] MEDS: Propranolol HCL 40 MG TABLET 80 MG PO ×3 (09:03→20:31)
[2023-11-24] MEDS: Magnesium Oxide 400 MG TABLET PO (09:03)
[2023-11-24] MEDS: Lithium Carbonate 300 MG TABLET 150 MG PO ×2 (09:04→20:32)
[2023-11-24] MEDS: risperiDONE 1 MG TABLET PO (09:04)
--- NOTE | 2023-11-24 12:35 | P.PNPSI_ITS ---
Subjective Subjective Date of Service: 11/24/23 Reason For Visit: Psychosis Interim History: calm, cooperative, pleasant. seen with ROSARIO Amaya. some bizarre content, but thoughts appear organized, pt has no complaints or requests. per staff, denies anx/dep/SI/HI. found in roommate's bed several times. refusing POC, insulin. slept 7 hours. singing loudly this morning. Mental Status Exam Mental Status Exam Narrative: adequately dressed and groomed. largely edentulous. cooperative. no PMA/PMR. speech nml rate, amount. nml loudness, tone, latency. thoughts organized and linear today, some fanciful material. affect full range, normo-intense, non- labile. mood euthymic. no SI/SIBI/HI/AVH expressed. Diagnostics Vital Signs (24Hr): Vital Signs - 24 hr 11/23/23 14:47 11/23/23 14:48 11/23/23 21:45 Temperature 97.8 F Pulse Rate 74 74 69 Respiratory Rate 16 Blood Pressure 129/60 129/60 114/53 L Pulse Oximetry 94 94 Oxygen Delivery Method Room Air 11/24/23 07:15 11/24/23 09:03 11/24/23 09:03 Temperature 97.6 F Pulse Rate 124 H 124 H Respiratory Rate 16 Blood Pressure 132/57 L 132/57 L 132/57 L Pulse Oximetry 93 Oxygen Delivery Method Room Air BMI result Body Mass Index 40.1 Labs 11/20/23 19:44 11/20/23 19:44 Labs: Laboratory Results - last 48 hr 11/22/23 11/22/23 11/22/23 13:02 17:35 20:45 POC Glucose 232 H 250 H 226 H 11/23/23 11/23/23 11/24/23 08:19 12:38 08:07 POC Glucose 164 H 246 H 254 H Medications Medications Current Medications Acetaminophen (Acetaminophen 325 Mg Tablet) 650 mg PO Q6H PRN PRN Reason: Headache/Pain Mild Scale (1-3) Al Hydroxide/Mg Hydroxide (Magnesium Hydrox/Alum Hydrox 30 Ml Oral.Susp) 30 ml PO Q6H PRN PRN Reason: Heartburn/Nausea Artificial Tears (Artificial Tears 15 Ml Drops) 1 drop EYE-BOTH Q4H PRN PRN Reason: dry eyes Divalproex Sodium (Divalproex Sodium 500 Mg Tablet.) 2,000 mg PO DAILY@1800 [facility] Last Admin: 11/23/23 18:45 Dose: 2,000 mg Escitalopram Oxalate (Escitalopram Oxalate 5 Mg Tablet) 5 mg PO DAILY [facility] Last Admin: 11/24/23 09:02 Dose: 5 mg Glucose (Glucose Gel 15 Gm Gel..Gram.) 15 gm PO Q15M PRN; Protocol PRN Reason: per Hypoglycemia Standing Ord. Hydroxyzine HCl (Hydroxyzine Hcl 25 Mg Tablet) 25 mg PO Q6H PRN PRN Reason: Anxiety Last Admin: 11/16/23 21:30 Dose: 25 mg Hydroxyzine HCl (Hydroxyzine Hcl 50 Mg Tablet) 50 mg PO BEDTIME [facility] Last Admin: 11/23/23 22:15 Dose: 50 mg Insulin Glargine (Insulin Glargine,Hum.Rec.Anlog 100 Unit/Ml 10 Ml Vial) 40 unit SUBCUT DAILY [facility] Last Admin: 11/24/23 11:36 Dose: Not Given Insulin Glargine (Insulin Glargine,Hum.Rec.Anlog 100 Unit/Ml 10 Ml Vial) 20 unit SUBCUT BEDTIME [facility] Last Admin: 11/23/23 22:20 Dose: Not Given Insulin Human Lispro (Insulin Lispro 100 Unit/Ml 3 Ml Vial) 0 unit SUBCUT QIDACHS [facility]; Protocol Last Admin: 11/24/23 08:23 Dose: Not Given Levothyroxine Sodium (Levothyroxine Sodium 125 Mcg Tablet) 125 mcg PO DAILY@0600 [facility] Last Admin: 11/24/23 06:36 Dose: 125 mcg Lisinopril (Lisinopril 10 Mg Tablet) 10 mg PO DAILY [facility]; Protocol Last Admin: 11/24/23 09:03 Dose: 10 mg [place] Carbonate ([place] Carbonate 300 Mg Tablet) 150 mg PO BID [facility] Last Admin: 11/24/23 09:04 Dose: 150 mg Loratadine (Loratadine 10 Mg Tablet) 10 mg PO DAILY PRN PRN Reason: Allergic Reaction Magnesium Hydroxide (Milk Of Magnesia 30 Ml Oral.Susp) 30 ml PO DAILY PRN PRN Reason: Constipation Magnesium Oxide (Magnesium Oxide 400 Mg Tablet) 400 mg PO DAILY [facility] Last Admin: 11/24/23 09:03 Dose: 400 mg Olanzapine (Olanzapine 5 Mg Tablet) 5 mg PO BEDTIME [facility] Last Admin: 11/23/23 22:15 Dose: 5 mg Olanzapine (Olanzapine 5 Mg Tablet) 5 mg PO Q4H PRN PRN Reason: Psychosis Last Admin: 11/15/23 04:57 Dose: 5 mg Propranolol HCl (Propranolol Hcl 40 Mg Tablet) 80 mg PO TID [facility]; Protocol Last Admin: 11/24/23 09:03 Dose: 80 mg Risperidone (Risperidone 1 Mg Tablet) 1 mg PO DAILY [facility] Last Admin: 11/24/23 09:04 Dose: 1 mg Trazodone HCl (Trazodone Hcl 50 Mg Tablet) 50 mg PO BEDTIME [facility] PRN PRN Reason: Insomnia Last Admin: 11/16/23 21:29 Dose: 50 mg Allergies Allergies Allergy/AdvReac Type Severity Reaction Status Date / Time haloperidol [From Haldol] AdvReac Unknown Verified 10/28/20 06:32 Assessment & Plan Assessment & Plan (1) Schizoaffective disorder, bipolar type: Status: Acute Code(s): F25.0 - Schizoaffective disorder, bipolar type Plan 11/14: continue/restart outpt meds. medical med changes as per hospitalist recommendation. anticipate improvement with presumed Sx attributable to mental illness and lack of compliance with medications. if no improvement as lithium and VPA levels enter therapeutic range, will need to consider delirium as Dx and return to medical w/u for etiology. 11/15: Ammonia level 22 repeat electrolytes continue Depakote olanzapine would benefit from clarification of antipsychotic dosing and response. 11/16: continue current Tx 11/17: no change in presentation. continue current mgmt. 11/18: much more organized and linear, lucid, today. continue current mgmt. 11/19: continue more organized and lucid. restart citalopram/escitalopram. check labs tonight. 11/20 continue tx. may benefit from increase in risperidone. 11/21: VPA level 18.8 on 11/19, lithium 0.4. increase VPA dosing from 1500 mg to 2000 mg daily. linear, organized, signed CV today. 11/22: continues more organized and reality-based. continue current mgmt. 11/23: no change from yesterday, stable presentation. c/o dry eyes, drops PRN ordered. Reason for continued inpatient stay Substantial Risk for: inability to function Time Spent With Patient Time: Total time managing care of this patient today __25
[2023-11-24 12:53] LABS: Glucose, Whole Blood 322 mg/dL (60-115)
[2023-11-24] MEDS: Insulin Glargine,Hum.rec.anlog 100 UNIT/ML 10 ML VIAL 40 UNIT SUBCUT (14:06)
[2023-11-24] MEDS: Insulin Lispro 100 UNIT/ML 3 ML VIAL SUBCUT ×3 (14:06→20:43)
[2023-11-24] MEDS: Artificial Tears 15 ML DROPS 1 DROP EYE-BOTH (14:06)
[2023-11-24 15:52] VITALS: BP 132/58; PULSE 76
[2023-11-24 17:52] LABS: Glucose, Whole Blood 297 mg/dL (60-115)
[2023-11-24] MEDS: Divalproex Sodium 500 MG TABLET.DR 2000 MG PO (17:54)
--- NOTE | 2023-11-24 18:25 | PC.NURSE ---
On 5 min checks pt was noted in bathroom with her pants in the toilet. She told counselor she was washing her clothes. Counselor came to get RN. When I approached pt she was washing herself in the toilet water where stool was noted. RN removed pants and a depend from the toilet and redirected pt to the shower. Pt was resistent initially, yelling at RN but eventually agreed to shower. Pt was observed throughout the shower by rn appropriately showering self in the shower room. During her shower she yelled at this nurse calling me a queenie Pt refused assist with shower and dressing. She is back in bed. Counselors were reminded to physically observe pt in the bathroom on 5 minute checks.
[2023-11-24 20:23] LABS: Glucose, Whole Blood 341 mg/dL (60-115)
[2023-11-24] MEDS: Insulin Glargine,Hum.rec.anlog 100 UNIT/ML 10 ML VIAL 20 UNIT SUBCUT (20:29)
[2023-11-24] MEDS: hydrOXYzine HCL 50 MG TABLET PO (20:31)
[2023-11-24] MEDS: OLANZapine 5 MG TABLET PO (20:32)
[2023-11-24 21:15] VITALS: BP 136/84; PULSE 94; RESP 16; TEMP 36.6; O2SAT 96
[2023-11-25] MEDS: Levothyroxine Sodium 125 MCG TABLET PO (06:01)
[2023-11-25 08:00] VITALS: BP 131/61; PULSE 81; RESP 16; TEMP 36.4; O2SAT 95
[2023-11-25 08:08] LABS: Glucose, Whole Blood 276 mg/dL (60-115)
[2023-11-25] MEDS: Escitalopram Oxalate 5 MG TABLET PO (08:59)
[2023-11-25 09:00] VITALS: BP 131/61; PULSE 81
[2023-11-25] MEDS: Propranolol HCL 40 MG TABLET 80 MG PO ×2 (09:00→21:08)
[2023-11-25] MEDS: Magnesium Oxide 400 MG TABLET PO (09:01)
[2023-11-25 09:02] VITALS: BP 131/61
[2023-11-25] MEDS: risperiDONE 1 MG TABLET PO (09:02)
[2023-11-25] MEDS: lisinopriL 10 MG TABLET PO (09:02)
[2023-11-25] MEDS: Lithium Carbonate 300 MG TABLET 150 MG PO ×2 (09:04→21:08)
[2023-11-25] MEDS: Insulin Glargine,Hum.rec.anlog 100 UNIT/ML 10 ML VIAL 40 UNIT SUBCUT (09:39)
[2023-11-25] MEDS: Insulin Lispro 100 UNIT/ML 3 ML VIAL SUBCUT (09:40)
--- NOTE | 2023-11-25 09:59 | P.PNPSI_ITS ---
Subjective Subjective Date of Service: 11/25/23 Reason For Visit: Psychosis Subjective Notes: Conditional Voluntary Interim History: Patient was seen and discussed in rounds today. Records and plans were reviewed. She was seen with an gas combustion engineer. She has been taking medications and insulin selectively. Her point of care readings were 254-341. Refused insulin for 1 of them but took him last evening. Eating and sleeping adequately. No changes were made today Review of Systems Review of Systems Yes all other systems are reviewed and are negative Mental Status Exam Mental Status Exam Narrative: In today's visit she is alert, pleasant and interactive. Speech is loud. No acute signs of psychosis. Denies any SI. No AVH. Cognitively appears to be grossly intact. Judgment is grossly. Diagnostics Vital Signs (24Hr): Vital Signs - 24 hr 11/24/23 15:52 11/24/23 21:15 11/25/23 08:00 Temperature 97.8 F 97.5 F Pulse Rate 76 94 81 Respiratory Rate 16 16 Blood Pressure 132/58 L 136/84 131/61 Pulse Oximetry 96 95 Oxygen Delivery Method Room Air Room Air 11/25/23 09:00 11/25/23 09:02 Temperature Pulse Rate 81 Respiratory Rate Blood Pressure 131/61 131/61 Pulse Oximetry Oxygen Delivery Method BMI result Body Mass Index 40.1 Labs 11/20/23 19:44 11/20/23 19:44 Labs: Laboratory Results - last 48 hr 11/23/23 11/24/23 11/24/23 12:38 08:07 12:48 POC Glucose 246 H 254 H 322 H 11/24/23 11/24/23 11/25/23 17:13 20:18 07:50 POC Glucose 297 H 341 H 276 H Medications Medications Current Medications Acetaminophen (Acetaminophen 325 Mg Tablet) 650 mg PO Q6H PRN PRN Reason: Headache/Pain Mild Scale (1-3) Al Hydroxide/Mg Hydroxide (Magnesium Hydrox/Alum Hydrox 30 Ml Oral.Susp) 30 ml PO Q6H PRN PRN Reason: Heartburn/Nausea Artificial Tears (Artificial Tears 15 Ml Drops) 1 drop EYE-BOTH Q4H PRN PRN Reason: dry eyes Last Admin: 11/24/23 14:06 Dose: 1 drop Divalproex Sodium (Divalproex Sodium 500 Mg Tablet.) 2,000 mg PO DAILY@1800 [facility] Last Admin: 11/24/23 17:54 Dose: 2,000 mg Escitalopram Oxalate (Escitalopram Oxalate 5 Mg Tablet) 5 mg PO DAILY [facility] Last Admin: 11/25/23 08:59 Dose: 5 mg Glucose (Glucose Gel 15 Gm Gel..Gram.) 15 gm PO Q15M PRN; Protocol PRN Reason: per Hypoglycemia Standing Ord. Hydroxyzine HCl (Hydroxyzine Hcl 25 Mg Tablet) 25 mg PO Q6H PRN PRN Reason: Anxiety Last Admin: 11/16/23 21:30 Dose: 25 mg Hydroxyzine HCl (Hydroxyzine Hcl 50 Mg Tablet) 50 mg PO BEDTIME [facility] Last Admin: 11/24/23 20:31 Dose: 50 mg Insulin Glargine (Insulin Glargine,Hum.Rec.Anlog 100 Unit/Ml 10 Ml Vial) 40 unit SUBCUT DAILY [facility] Last Admin: 11/25/23 09:39 Dose: 40 unit Insulin Glargine (Insulin Glargine,Hum.Rec.Anlog 100 Unit/Ml 10 Ml Vial) 20 unit SUBCUT BEDTIME [facility] Last Admin: 11/24/23 20:29 Dose: 20 unit Insulin Human Lispro (Insulin Lispro 100 Unit/Ml 3 Ml Vial) 0 unit SUBCUT QIDACHS [facility]; Protocol Last Admin: 11/25/23 09:40 Dose: 8 unit Levothyroxine Sodium (Levothyroxine Sodium 125 Mcg Tablet) 125 mcg PO DAILY@0600 [facility] Last Admin: 11/25/23 06:01 Dose: 125 mcg Lisinopril (Lisinopril 10 Mg Tablet) 10 mg PO DAILY [facility]; Protocol Last Admin: 11/25/23 09:02 Dose: 10 mg [place] Carbonate ([place] Carbonate 300 Mg Tablet) 150 mg PO BID [facility] Last Admin: 11/25/23 09:04 Dose: 150 mg Loratadine (Loratadine 10 Mg Tablet) 10 mg PO DAILY PRN PRN Reason: Allergic Reaction Magnesium Hydroxide (Milk Of Magnesia 30 Ml Oral.Susp) 30 ml PO DAILY PRN PRN Reason: Constipation Magnesium Oxide (Magnesium Oxide 400 Mg Tablet) 400 mg PO DAILY [facility] Last Admin: 11/25/23 09:01 Dose: 400 mg Olanzapine (Olanzapine 5 Mg Tablet) 5 mg PO BEDTIME [facility] Last Admin: 11/24/23 20:32 Dose: 5 mg Olanzapine (Olanzapine 5 Mg Tablet) 5 mg PO Q4H PRN PRN Reason: Psychosis Last Admin: 11/15/23 04:57 Dose: 5 mg Propranolol HCl (Propranolol Hcl 40 Mg Tablet) 80 mg PO TID [facility]; Protocol Last Admin: 11/25/23 09:00 Dose: 80 mg Risperidone (Risperidone 1 Mg Tablet) 1 mg PO DAILY [facility] Last Admin: 11/25/23 09:02 Dose: 1 mg Trazodone HCl (Trazodone Hcl 50 Mg Tablet) 50 mg PO BEDTIME MRX1 PRN PRN Reason: Insomnia Last Admin: 11/16/23 21:29 Dose: 50 mg Allergies Allergies Allergy/AdvReac Type Severity Reaction Status Date / Time haloperidol [From Haldol] AdvReac Unknown Verified 10/28/20 06:32 Assessment & Plan Assessment & Plan (1) Schizoaffective disorder, bipolar type: Status: Acute Code(s): F25.0 - Schizoaffective disorder, bipolar type Plan 11/14: continue/restart outpt meds. medical med changes as per hospitalist recommendation. anticipate improvement with presumed Sx attributable to mental illness and lack of compliance with medications. if no improvement as lithium and VPA levels enter therapeutic range, will need to consider delirium as Dx and return to medical w/u for etiology. 11/15: Ammonia level 22 repeat electrolytes continue Depakote olanzapine would benefit from clarification of antipsychotic dosing and response. 11/16: continue current Tx 11/17: no change in presentation. continue current mgmt. 11/18: much more organized and linear, lucid, today. continue current mgmt. 11/19: continue more organized and lucid. restart citalopram/escitalopram. check labs tonight. 11/20 continue tx. may benefit from increase in risperidone. 11/21: VPA level 18.8 on 11/19, lithium 0.4. increase VPA dosing from 1500 mg to 2000 mg daily. linear, organized, signed CV today. 11/22: continues more organized and reality-based. continue current mgmt. 11/23: no change from yesterday, stable presentation. c/o dry eyes, drops PRN ordered. 11/24: Continue current regimen and plans Reason for continued inpatient stay Substantial Risk for: rapid decompensation Time Spent With Patient Time: Total time managing care of this patient today ____ minutes.
[2023-11-25] MEDS: Divalproex Sodium 500 MG TABLET.DR 2000 MG PO (18:16)
[2023-11-25 21:00] VITALS: BP 140/80; PULSE 88; RESP 16; TEMP 36.6; O2SAT 95
[2023-11-25 21:08] VITALS: BP 140/80; PULSE 88
[2023-11-25] MEDS: hydrOXYzine HCL 50 MG TABLET PO (21:08)
[2023-11-25] MEDS: OLANZapine 5 MG TABLET PO (21:09)
[2023-11-25] MEDS: Insulin Glargine,Hum.rec.anlog 100 UNIT/ML 10 ML VIAL 20 UNIT SUBCUT (21:18)
[2023-11-25 21:28] LABS: Glucose, Whole Blood 330 mg/dL (60-115)
[2023-11-26] MEDS: hydrOXYzine HCL 25 MG TABLET PO ×2 (03:16→21:22)
[2023-11-26] MEDS: OLANZapine 5 MG TABLET PO ×3 (03:16→22:55)
--- NOTE | 2023-11-26 03:20 | PC.NURSE ---
up and agitated. dysregulated mood with agitation. yelling out, singing out, angry outbursts, quick paced. walking into another patients room, laying in bed, swatting at staff when asked to get up. body motion of dismissing staff with arm motions. accepted PRN medications. appears to be responding to IS.
[2023-11-26] MEDS: Levothyroxine Sodium 125 MCG TABLET PO (06:22)
[2023-11-26] MEDS: risperiDONE 1 MG TABLET PO (10:49)
[2023-11-26] MEDS: Magnesium Oxide 400 MG TABLET PO (10:49)
[2023-11-26 10:50] VITALS: BP 143/64; PULSE 76
[2023-11-26] MEDS: Escitalopram Oxalate 5 MG TABLET PO (10:50)
[2023-11-26] MEDS: Propranolol HCL 40 MG TABLET 80 MG PO ×3 (10:50→21:22)
[2023-11-26 10:51] VITALS: BP 143/64
[2023-11-26] MEDS: lisinopriL 10 MG TABLET PO (10:51)
[2023-11-26] MEDS: Lithium Carbonate 300 MG TABLET 150 MG PO ×2 (10:52→21:23)
--- NOTE | 2023-11-26 12:08 | P.PNPSI_ITS ---
Subjective Subjective Date of Service: 11/26/23 Reason For Visit: Psychosis Subjective Notes: Conditional Voluntary Interim History: Patient was seen and discussed in rounds today. Records and plans were reviewed. She was seen with an plant biology professor. Continues to have some fluctuating blood sugars and receives insulin and coverage. She is on Depakote but a very low-dose lithium which I did not change. No behavioral issues. Eating and sleeping adequately. No complaints or side effects. No SI Review of Systems Review of Systems Yes all other systems are reviewed and are negative Mental Status Exam Mental Status Exam Narrative: In today's visit she is alert, pleasant and interactive. Speech is loud. No acute signs of psychosis. Denies any SI. No AVH. Cognitively appears to be grossly intact. Judgment is grossly. Diagnostics Vital Signs (24Hr): Vital Signs - 24 hr 11/25/23 21:00 11/25/23 21:08 11/26/23 10:50 Temperature 97.8 F Pulse Rate 88 88 76 Respiratory Rate 16 Blood Pressure 140/80 H 140/80 H 143/64 H Pulse Oximetry 95 Oxygen Delivery Method Room Air 11/26/23 10:51 Temperature Pulse Rate Respiratory Rate Blood Pressure 143/64 H Pulse Oximetry Oxygen Delivery Method BMI result Body Mass Index 40.1 Labs 11/20/23 19:44 11/20/23 19:44 Labs: Laboratory Results - last 48 hr 11/24/23 11/24/23 11/24/23 12:48 17:13 20:18 POC Glucose 322 H 297 H 341 H 11/25/23 11/25/23 07:50 21:07 POC Glucose 276 H 330 H Medications Medications Current Medications Acetaminophen (Acetaminophen 325 Mg Tablet) 650 mg PO Q6H PRN PRN Reason: Headache/Pain Mild Scale (1-3) Al Hydroxide/Mg Hydroxide (Magnesium Hydrox/Alum Hydrox 30 Ml Oral.Susp) 30 ml PO Q6H PRN PRN Reason: Heartburn/Nausea Artificial Tears (Artificial Tears 15 Ml Drops) 1 drop EYE-BOTH Q4H PRN PRN Reason: dry eyes Last Admin: 11/24/23 14:06 Dose: 1 drop Divalproex Sodium (Divalproex Sodium 500 Mg Tablet.) 2,000 mg PO DAILY@1800 [facility] Last Admin: 11/25/23 18:16 Dose: 2,000 mg Escitalopram Oxalate (Escitalopram Oxalate 5 Mg Tablet) 5 mg PO DAILY [facility] Last Admin: 11/26/23 10:50 Dose: 5 mg Glucose (Glucose Gel 15 Gm Gel..Gram.) 15 gm PO Q15M PRN; Protocol PRN Reason: per Hypoglycemia Standing Ord. Hydroxyzine HCl (Hydroxyzine Hcl 25 Mg Tablet) 25 mg PO Q6H PRN PRN Reason: Anxiety Last Admin: 11/26/23 03:16 Dose: 25 mg Hydroxyzine HCl (Hydroxyzine Hcl 50 Mg Tablet) 50 mg PO BEDTIME [facility] Last Admin: 11/25/23 21:08 Dose: 50 mg Insulin Glargine (Insulin Glargine,Hum.Rec.Anlog 100 Unit/Ml 10 Ml Vial) 40 unit SUBCUT DAILY [facility] Last Admin: 11/26/23 09:09 Dose: Not Given Insulin Glargine (Insulin Glargine,Hum.Rec.Anlog 100 Unit/Ml 10 Ml Vial) 20 unit SUBCUT BEDTIME [facility] Last Admin: 11/25/23 21:18 Dose: 20 unit Insulin Human Lispro (Insulin Lispro 100 Unit/Ml 3 Ml Vial) 0 unit SUBCUT QIDACHS [facility]; Protocol Last Admin: 11/26/23 09:06 Dose: Not Given Levothyroxine Sodium (Levothyroxine Sodium 125 Mcg Tablet) 125 mcg PO DAILY@0600 [facility] Last Admin: 11/26/23 06:22 Dose: 125 mcg Lisinopril (Lisinopril 10 Mg Tablet) 10 mg PO DAILY [facility]; Protocol Last Admin: 11/26/23 10:51 Dose: 10 mg [place] Carbonate ([place] Carbonate 300 Mg Tablet) 150 mg PO BID [facility] Last Admin: 11/26/23 10:52 Dose: 150 mg Loratadine (Loratadine 10 Mg Tablet) 10 mg PO DAILY PRN PRN Reason: Allergic Reaction Magnesium Hydroxide (Milk Of Magnesia 30 Ml Oral.Susp) 30 ml PO DAILY PRN PRN Reason: Constipation Magnesium Oxide (Magnesium Oxide 400 Mg Tablet) 400 mg PO DAILY [facility] Last Admin: 11/26/23 10:49 Dose: 400 mg Olanzapine (Olanzapine 5 Mg Tablet) 5 mg PO BEDTIME [facility] Last Admin: 11/25/23 21:09 Dose: 5 mg Olanzapine (Olanzapine 5 Mg Tablet) 5 mg PO Q4H PRN PRN Reason: Psychosis Last Admin: 11/26/23 03:16 Dose: 5 mg Propranolol HCl (Propranolol Hcl 40 Mg Tablet) 80 mg PO TID [facility]; Protocol Last Admin: 11/26/23 10:50 Dose: 80 mg Risperidone (Risperidone 1 Mg Tablet) 1 mg PO DAILY [facility] Last Admin: 11/26/23 10:49 Dose: 1 mg Trazodone HCl (Trazodone Hcl 50 Mg Tablet) 50 mg PO BEDTIME MRX1 PRN PRN Reason: Insomnia Last Admin: 11/16/23 21:29 Dose: 50 mg Allergies Allergies Allergy/AdvReac Type Severity Reaction Status Date / Time haloperidol [From Haldol] AdvReac Unknown Verified 10/28/20 06:32 Assessment & Plan Assessment & Plan (1) Schizoaffective disorder, bipolar type: Status: Acute Code(s): F25.0 - Schizoaffective disorder, bipolar type Plan 11/14: continue/restart outpt meds. medical med changes as per hospitalist recommendation. anticipate improvement with presumed Sx attributable to mental illness and lack of compliance with medications. if no improvement as lithium and VPA levels enter therapeutic range, will need to consider delirium as Dx and return to medical w/u for etiology. 11/15: Ammonia level 22 repeat electrolytes continue Depakote olanzapine would benefit from clarification of antipsychotic dosing and response. 11/16: continue current Tx 11/17: no change in presentation. continue current mgmt. 11/18: much more organized and linear, lucid, today. continue current mgmt. 11/19: continue more organized and lucid. restart citalopram/escitalopram. check labs tonight. 11/20 continue tx. may benefit from increase in risperidone. 11/21: VPA level 18.8 on 11/19, lithium 0.4. increase VPA dosing from 1500 mg to 2000 mg daily. linear, organized, signed CV today. 11/22: continues more organized and reality-based. continue current mgmt. 11/23: no change from yesterday, stable presentation. c/o dry eyes, drops PRN ordered. 11/24: Continue current regimen and plans 11/25: Continue current regimen and plans Reason for continued inpatient stay Substantial Risk for: rapid decompensation Time Spent With Patient Time: Total time managing care of this patient today ____ minutes.
[2023-11-26 12:51] LABS: Glucose, Whole Blood 210 mg/dL (60-115)
[2023-11-26] MEDS: Insulin Lispro 100 UNIT/ML 3 ML VIAL SUBCUT ×2 (13:18→13:19)
[2023-11-26 15:33] VITALS: BP 133/59; PULSE 71
--- NOTE | 2023-11-26 15:40 | PC.NURSE ---
Patient observed to become increasingly disruptive when working with roommate. Observed to use bathroom without closing door, staff closed door for privacy, turn immigration investigator system, yell and sing loudly, and slam door when exiting bathroom.
[2023-11-26] MEDS: Divalproex Sodium 500 MG TABLET.DR 2000 MG PO (18:59)
[2023-11-26 21:00] VITALS: BP 151/70; PULSE 80; RESP 16; TEMP 36.9; O2SAT 95
[2023-11-26] MEDS: hydrOXYzine HCL 50 MG TABLET PO (21:22)
[2023-11-26] MEDS: traZODone HCL 50 MG TABLET PO (21:24)
[2023-11-26 21:34] LABS: Glucose, Whole Blood 394 mg/dL (60-115)
[2023-11-27] MEDS: traZODone HCL 50 MG TABLET PO (01:15)
[2023-11-27 08:00] VITALS: BP 138/64; PULSE 78; RESP 16; TEMP 36.5; O2SAT 97
[2023-11-27 08:46] LABS: Glucose, Whole Blood 251 mg/dL (60-115)
[2023-11-27] MEDS: Insulin Lispro 100 UNIT/ML 3 ML VIAL SUBCUT ×3 (08:50→18:28)
[2023-11-27] MEDS: Insulin Glargine,Hum.rec.anlog 100 UNIT/ML 10 ML VIAL 40 UNIT SUBCUT (08:50)
[2023-11-27 08:51] VITALS: BP 138/64
[2023-11-27] MEDS: Escitalopram Oxalate 5 MG TABLET PO (08:51)
[2023-11-27] MEDS: lisinopriL 10 MG TABLET PO (08:51)
[2023-11-27 08:52] VITALS: BP 138/64; PULSE 78
[2023-11-27] MEDS: Lithium Carbonate 300 MG TABLET 150 MG PO (08:52)
[2023-11-27] MEDS: risperiDONE 1 MG TABLET PO (08:52)
[2023-11-27] MEDS: Propranolol HCL 40 MG TABLET 80 MG PO ×2 (08:52→15:11)
[2023-11-27] MEDS: Magnesium Oxide 400 MG TABLET PO (08:53)
[2023-11-27] MEDS: Levothyroxine Sodium 125 MCG TABLET PO (08:53)
--- NOTE | 2023-11-27 09:29 | PM.EVENT ---
Event Note Date of Service: 11/27/23 Event Note: Pt continues to intermittently refuse insulin. Recommend continuing to closely monitor glucose levels. Encourage patient to be compliant with diabetic diet and continue taking insulin We will signoff a this time. If patient is compliant with insulin and diet and continues to exhibit hyperglycemia, please do not hesitate to reach out. Time Spent With Patient Time: Total time managing care of this patient today ____ minutes.
[2023-11-27 12:56] LABS: Glucose, Whole Blood 157 mg/dL (60-115)
[2023-11-27 15:10] VITALS: BP 148/68; PULSE 70; O2SAT 94
[2023-11-27 15:11] VITALS: BP 148/68; PULSE 70
--- NOTE | 2023-11-27 15:51 | P.PNPSI_ITS ---
Subjective Subjective Date of Service: 11/27/23 Reason For Visit: Psychosis Interim History: calm, cooperative. seen with mushroom growth media mixer. reports she took her insulin earlier in the day. promises to allow blood draw if issuing operator called again. singing, euphoric, wanting to put on make-up, self-esteem through the roof. per staff, singing, loud, yelling over w/e/. disrupting peers' sleep. angry, sarcastic. refusing insulin. going into others' rooms, bathrooms, beds. taking their clothing. Mental Status Exam Mental Status Exam Narrative: adequately dressed and groomed. largely edentulous. cooperative. no PMA/PMR. speech nml rate, amount. nml loudness, tone, latency. thoughts organized and linear today, some fanciful material. affect full range, normo-intense, non- labile. mood euphoric. no SI/SIBI/HI/AVH expressed. Diagnostics Vital Signs (24Hr): Vital Signs - 24 hr 11/26/23 21:00 11/27/23 08:00 11/27/23 08:51 Temperature 98.4 F 97.7 F Pulse Rate 80 78 Respiratory Rate 16 16 Blood Pressure 151/70 H 138/64 138/64 Pulse Oximetry 95 97 Oxygen Delivery Method Room Air Room Air 11/27/23 08:52 11/27/23 15:10 11/27/23 15:11 Temperature Pulse Rate 78 70 70 Respiratory Rate Blood Pressure 138/64 148/68 H 148/68 H Pulse Oximetry 94 Oxygen Delivery Method Room Air BMI result Body Mass Index 40.1 Labs 11/20/23 19:44 11/20/23 19:44 Labs: Laboratory Results - last 48 hr 11/25/23 11/26/23 11/26/23 21:07 12:39 21:21 POC Glucose 330 H 210 H 394 H* 11/27/23 11/27/23 08:42 12:50 POC Glucose 251 H 157 H Medications Medications Current Medications Acetaminophen (Acetaminophen 325 Mg Tablet) 650 mg PO Q6H PRN PRN Reason: Headache/Pain Mild Scale (1-3) Al Hydroxide/Mg Hydroxide (Magnesium Hydrox/Alum Hydrox 30 Ml Oral.Susp) 30 ml PO Q6H PRN PRN Reason: Heartburn/Nausea Artificial Tears (Artificial Tears 15 Ml Drops) 1 drop EYE-BOTH Q4H PRN PRN Reason: dry eyes Last Admin: 11/24/23 14:06 Dose: 1 drop Divalproex Sodium (Divalproex Sodium 500 Mg Tablet.) 2,000 mg PO DAILY@1800 [facility] Last Admin: 11/26/23 18:59 Dose: 2,000 mg Escitalopram Oxalate (Escitalopram Oxalate 5 Mg Tablet) 5 mg PO DAILY [facility] Last Admin: 11/27/23 08:51 Dose: 5 mg Glucose (Glucose Gel 15 Gm Gel..Gram.) 15 gm PO Q15M PRN; Protocol PRN Reason: per Hypoglycemia Standing Ord. Hydroxyzine HCl (Hydroxyzine Hcl 25 Mg Tablet) 25 mg PO Q6H PRN PRN Reason: Anxiety Last Admin: 11/26/23 21:22 Dose: 25 mg Hydroxyzine HCl (Hydroxyzine Hcl 50 Mg Tablet) 50 mg PO BEDTIME [facility] Last Admin: 11/26/23 21:22 Dose: 50 mg Insulin Glargine (Insulin Glargine,Hum.Rec.Anlog 100 Unit/Ml 10 Ml Vial) 40 unit SUBCUT DAILY [facility] Last Admin: 11/27/23 08:50 Dose: 40 unit Insulin Glargine (Insulin Glargine,Hum.Rec.Anlog 100 Unit/Ml 10 Ml Vial) 20 unit SUBCUT BEDTIME [facility] Last Admin: 11/26/23 21:27 Dose: Not Given Insulin Human Lispro (Insulin Lispro 100 Unit/Ml 3 Ml Vial) 0 unit SUBCUT QIDACHS [facility]; Protocol Last Admin: 11/27/23 12:58 Dose: 4 unit Levothyroxine Sodium (Levothyroxine Sodium 125 Mcg Tablet) 125 mcg PO DAILY@0600 [facility] Last Admin: 11/27/23 08:53 Dose: 125 mcg Lisinopril (Lisinopril 10 Mg Tablet) 10 mg PO DAILY [facility]; Protocol Last Admin: 11/27/23 08:51 Dose: 10 mg [place] Carbonate ([place] Carbonate 300 Mg Tablet) 150 mg PO BID [facility] Last Admin: 11/27/23 08:52 Dose: 150 mg Loratadine (Loratadine 10 Mg Tablet) 10 mg PO DAILY PRN PRN Reason: Allergic Reaction Magnesium Hydroxide (Milk Of Magnesia 30 Ml Oral.Susp) 30 ml PO DAILY PRN PRN Reason: Constipation Magnesium Oxide (Magnesium Oxide 400 Mg Tablet) 400 mg PO DAILY [facility] Last Admin: 11/27/23 08:53 Dose: 400 mg Olanzapine (Olanzapine 5 Mg Tablet) 5 mg PO BEDTIME [facility] Last Admin: 11/26/23 22:55 Dose: 5 mg Olanzapine (Olanzapine 5 Mg Tablet) 5 mg PO Q4H PRN PRN Reason: Psychosis Last Admin: 11/26/23 21:24 Dose: 5 mg Propranolol HCl (Propranolol Hcl 40 Mg Tablet) 80 mg PO TID [facility]; Protocol Last Admin: 11/27/23 15:11 Dose: 80 mg Risperidone (Risperidone 1 Mg Tablet) 1 mg PO DAILY [facility] Last Admin: 11/27/23 08:52 Dose: 1 mg Trazodone HCl (Trazodone Hcl 50 Mg Tablet) 50 mg PO BEDTIME MRX1 PRN PRN Reason: Insomnia Last Admin: 11/27/23 01:15 Dose: 50 mg Allergies Allergies Allergy/AdvReac Type Severity Reaction Status Date / Time haloperidol [From Haldol] AdvReac Unknown Verified 10/28/20 06:32 Assessment & Plan Assessment & Plan (1) Schizoaffective disorder, bipolar type: Status: Acute Code(s): F25.0 - Schizoaffective disorder, bipolar type Plan 11/14: continue/restart outpt meds. medical med changes as per hospitalist recommendation. anticipate improvement with presumed Sx attributable to mental illness and lack of compliance with medications. if no improvement as lithium and VPA levels enter therapeutic range, will need to consider delirium as Dx and return to medical w/u for etiology. 11/15: Ammonia level 22 repeat electrolytes continue Depakote olanzapine would benefit from clarification of antipsychotic dosing and response. 11/16: continue current Tx 11/17: no change in presentation. continue current mgmt. 11/18: much more organized and linear, lucid, today. continue current mgmt. 11/19: continue more organized and lucid. restart citalopram/escitalopram. check labs tonight. 11/20 continue tx. may benefit from increase in risperidone. 11/21: VPA level 18.8 on 11/19, lithium 0.4. increase VPA dosing from 1500 mg to 2000 mg daily. linear, organized, signed CV today. 11/22: continues more organized and reality-based. continue current mgmt. 11/23: no change from yesterday, stable presentation. c/o dry eyes, drops PRN ordered. 11/24: Continue current regimen and plans 11/25: Continue current regimen and plans 11/26: check labs. remains manic. Reason for continued inpatient stay Substantial Risk for: inability to function Time Spent With Patient Time: Total time managing care of this patient today __25__ minutes.
[2023-11-27 15:58] LABS: MANUAL DIFF FLAG NO
[2023-11-27 16:01] LABS: Basophils Percent Auto 0.2 % (0-2); Eosinophils Absolute Auto 0.1 X10*3/uL (0.0-0.4); Eosinophils Percent Auto 2.2 % (0-4); Hemoglobin 12.6 g/dl (12.0-16.0); Imm Gran Abs Auto 0.03 X10*3/uL (0.00-0.03); Imm Gran Pct Auto 0.7 % (0.0-0.4); Lymphocytes Absolute Auto 1.9 X10*3/uL (1.2-4.9); Lymphocytes Percent Auto 42.6 % (20-40); Mean Corpuscular Hemoglobin 30.2 pg (27.0-33.0); Mean Corpuscular Volume 86.3 fL (80.0-98.0); Mean Platelet Volume 9.8 fL (9.4-12.3); Monocytes Absolute Auto 0.3 X10*3/uL (0.1-1.2); Monocytes Percent Auto 7.5 % (2-11); Neutrophils Absolute Auto 2.1 x10*3/uL (2.0-8.3); Neutrophils Percent Auto 46.8 % (45-73); Platelet Count 146 X10*3/uL (160-400); Red Blood Count 4.17 X10*6/uL (4.20-5.50); Red Cell Distribution Width 13.4 % (11.0-16.0); White Blood Count 4.5 X10*3/uL (4.8-10.8)
[2023-11-27 16:14] LABS: Ammonia 46 umol/L (13-55)
[2023-11-27 16:22] LABS: Alanine Aminotransferase 14 U/L (0-31); Albumin Level 3.5 g/dL (3.5-5.0); Alkaline Phosphatase 78 U/L (39-117); Anion Gap 9 (12-20); Aspartate Amino Transferase 10 U/L (5-31); Bilirubin Direct 0.1 mg/dL (0.0-0.5); Bilirubin Total 0.3 mg/dL (0.0-1.0); Blood Urea Nitrogen 12 mg/dL (9-16); Calcium 9.5 mg/dL (8.4-10.2); Carbon Dioxide 31 mmol/L (22-29); Chloride 101 mmol/L (96-108); Creatinine Clr Calc Pharmacy 81.3; Estimated Glomerular Filt Rate > 60; Glucose Random 237 mg/dL (60-115); Potassium 4.3 mmol/L (3.3-5.1); Sodium 137 mmol/L (135-145); Total Protein 5.9 g/dL (6.5-8.0)
[2023-11-27 16:57] LABS: Lithium 0.52 mmol/L (0.60-1.20)
[2023-11-27 17:10] LABS: Valproate 58.5 mcg/mL (50.0-100.0)
[2023-11-27 17:51] LABS: Glucose, Whole Blood 191 mg/dL (60-115)
[2023-11-27] MEDS: Divalproex Sodium 500 MG TABLET.DR 2000 MG PO (18:29)
[2023-11-27 20:30] VITALS: RESP 20
[2023-11-28] MEDS: traZODone HCL 50 MG TABLET PO ×2 (00:40→22:06)
[2023-11-28] MEDS: hydrOXYzine HCL 25 MG TABLET PO ×2 (00:40→22:06)
[2023-11-28] MEDS: OLANZapine 5 MG TABLET PO ×3 (00:40→22:06)
[2023-11-28] MEDS: hydrOXYzine HCL 50 MG TABLET PO ×2 (00:40→21:04)
[2023-11-28] MEDS: Lithium Carbonate 300 MG TABLET 150 MG PO ×2 (00:43→09:20)
--- NOTE | 2023-11-28 00:48 | PC.NURSE ---
Kae was noted to appear angry throughout the evening when approached. she had poor eye contact and would only give this production underwriter one word answers the told this production underwriter to leave her alone. she refused all HS medications. at approximately 2200 the patient went to the dayroom and sat singing loudly. she was redirected with moderate difficulty. She requested a shower and agreed to take medications following her shower. she accepted her [place], Hydroxyzine Zyprexa and Trazodone form a different nurse as she had already told this production underwriter she would not take medications from her because she did not provide the patient with conditioner for her hair.
[2023-11-28 08:00] VITALS: BP 143/74; PULSE 82; RESP 16; TEMP 36.9; O2SAT 94
[2023-11-28 08:48] LABS: Glucose, Whole Blood 263 mg/dL (60-115)
[2023-11-28] MEDS: Insulin Glargine,Hum.rec.anlog 100 UNIT/ML 10 ML VIAL 40 UNIT SUBCUT (09:15)
[2023-11-28] MEDS: Insulin Lispro 100 UNIT/ML 3 ML VIAL SUBCUT (09:18)
[2023-11-28] MEDS: risperiDONE 1 MG TABLET PO (09:20)
[2023-11-28] MEDS: Escitalopram Oxalate 5 MG TABLET PO (09:21)
[2023-11-28 09:22] VITALS: BP 143/74
[2023-11-28] MEDS: lisinopriL 10 MG TABLET PO (09:22)
[2023-11-28] MEDS: Magnesium Oxide 400 MG TABLET PO (09:22)
[2023-11-28] MEDS: Levothyroxine Sodium 125 MCG TABLET PO (09:23)
[2023-11-28 12:53] LABS: Glucose, Whole Blood 447 mg/dL (60-115)
[2023-11-28] MEDS: Insulin Lispro 100 UNIT/ML 3 ML VIAL 14 UNIT SUBCUT (13:10)
--- NOTE | 2023-11-28 16:22 | HO.PSYCHPN ---
Subjective Subjective Date of Service: 11/28/23 Reason For Visit: Psychosis Interim History: calm, cooperative. not singing today. lying in bed. also seen up and about on the unit, quiet. states she is feeling well and has no questions or complaints for MD today. labs reviewed, pt informed of plan to increase VPA and lithium dosing. per staff, remains manic. Mental Status Exam Mental Status Exam Narrative: adequately dressed and groomed. largely edentulous. cooperative. no PMA/PMR. speech nml rate, decr amount. nml loudness, tone, latency. thoughts organized and linear today, some fanciful material. affect full range, normo-intense, non-labile. mood euphoric. no SI/SIBI/HI/AVH expressed. Diagnostics Vital Signs (24Hr): Vital Signs - 24 hr 11/27/23 20:30 11/28/23 08:00 11/28/23 09:22 Temperature 98.5 F Pulse Rate 82 Respiratory Rate 20 16 Blood Pressure 143/74 H 143/74 H Pulse Oximetry 94 Oxygen Delivery Method Room Air BMI result Body Mass Index 40.1 Labs 11/27/23 15:52 11/27/23 15:52 Labs: Laboratory Results - last 48 hr 11/26/23 11/27/23 11/27/23 21:21 08:42 12:50 WBC RBC Hgb Hct MCV MCH MCHC RDW Plt Count MPV Immature Gran % (Auto) Neut % (Auto) Lymph % (Auto) [place] % (Auto) Eos % (Auto) Baso % (Auto) Lymph # (Auto) [place] # (Auto) Eos # (Auto) Baso # (Auto) Abs Immat Gran (auto) Absolute Neuts (auto) Absolute Nucleated RBC Nucleated RBC % (auto) Sodium Potassium Chloride Carbon Dioxide Anion Gap BUN Creatinine Estim Creat Clear Calc Estimated GFR POC Glucose 394 H* 251 H 157 H Random Glucose Calcium Total Bilirubin Direct Bilirubin AST ALT Alkaline Phosphatase Ammonia Total Protein Albumin Valproic Acid [place] 11/27/23 11/27/23 11/28/23 15:52 17:45 08:34 WBC 4.5 L RBC 4.17 L Hgb 12.6 Hct 36.0 L MCV 86.3 MCH 30.2 MCHC 35.0 RDW 13.4 Plt Count 146 L MPV 9.8 Immature Gran % (Auto) 0.7 H Neut % (Auto) 46.8 Lymph % (Auto) 42.6 H [place] % (Auto) 7.5 Eos % (Auto) 2.2 Baso % (Auto) 0.2 Lymph # (Auto) 1.9 [place] # (Auto) 0.3 Eos # (Auto) 0.1 Baso # (Auto) 0.0 Abs Immat Gran (auto) 0.03 Absolute Neuts (auto) 2.1 Absolute Nucleated RBC 0.000 Nucleated RBC % (auto) 0.0 Sodium 137 Potassium 4.3 Chloride 101 Carbon Dioxide 31 H Anion Gap 9 L BUN 12 Creatinine 0.73 Estim Creat Clear Calc 81.3 Estimated GFR > 60 POC Glucose 191 H 263 H Random Glucose 237 H Calcium 9.5 Total Bilirubin 0.3 Direct Bilirubin 0.1 AST 10 ALT 14 Alkaline Phosphatase 78 Ammonia 46 Total Protein 5.9 L Albumin 3.5 Valproic Acid 58.5 [place] 0.52 L 11/28/23 12:49 WBC RBC Hgb Hct MCV MCH MCHC RDW Plt Count MPV Immature Gran % (Auto) Neut % (Auto) Lymph % (Auto) [place] % (Auto) Eos % (Auto) Baso % (Auto) Lymph # (Auto) [place] # (Auto) Eos # (Auto) Baso # (Auto) Abs Immat Gran (auto) Absolute Neuts (auto) Absolute Nucleated RBC Nucleated RBC % (auto) Sodium Potassium Chloride Carbon Dioxide Anion Gap BUN Creatinine Estim Creat Clear Calc Estimated GFR POC Glucose 447 H* Random Glucose Calcium Total Bilirubin Direct Bilirubin AST ALT Alkaline Phosphatase Ammonia Total Protein Albumin Valproic Acid [place] Medications Medications Current Medications Acetaminophen (Acetaminophen 325 Mg Tablet) 650 mg PO Q6H PRN PRN Reason: Headache/Pain Mild Scale (1-3) Al Hydroxide/Mg Hydroxide (Magnesium Hydrox/Alum Hydrox 30 Ml Oral.Susp) 30 ml PO Q6H PRN PRN Reason: Heartburn/Nausea Artificial Tears (Artificial Tears 15 Ml Drops) 1 drop EYE-BOTH Q4H PRN PRN Reason: dry eyes Last Admin: 11/24/23 14:06 Dose: 1 drop Divalproex Sodium (Divalproex Sodium 250 Mg Tablet.) 2,250 mg PO DAILY@1800 [facility] Escitalopram Oxalate (Escitalopram Oxalate 5 Mg Tablet) 5 mg PO DAILY [facility] Last Admin: 11/28/23 09:21 Dose: 5 mg Glucose (Glucose Gel 15 Gm Gel..Gram.) 15 gm PO Q15M PRN; Protocol PRN Reason: per Hypoglycemia Standing Ord. Hydroxyzine HCl (Hydroxyzine Hcl 25 Mg Tablet) 25 mg PO Q6H PRN PRN Reason: Anxiety Last Admin: 11/28/23 00:40 Dose: 25 mg Hydroxyzine HCl (Hydroxyzine Hcl 50 Mg Tablet) 50 mg PO BEDTIME [facility] Last Admin: 11/28/23 00:40 Dose: 50 mg Insulin Glargine (Insulin Glargine,Hum.Rec.Anlog 100 Unit/Ml 10 Ml Vial) 40 unit SUBCUT DAILY [facility] Last Admin: 11/28/23 09:15 Dose: 40 unit Insulin Glargine (Insulin Glargine,Hum.Rec.Anlog 100 Unit/Ml 10 Ml Vial) 20 unit SUBCUT BEDTIME [facility] Last Admin: 11/27/23 21:20 Dose: Not Given Insulin Human Lispro (Insulin Lispro 100 Unit/Ml 3 Ml Vial) 0 unit SUBCUT QIDACHS [facility]; Protocol Last Admin: 11/28/23 13:00 Dose: Not Given Levothyroxine Sodium (Levothyroxine Sodium 125 Mcg Tablet) 125 mcg PO DAILY@0600 [facility] Last Admin: 11/28/23 09:23 Dose: 125 mcg Lisinopril (Lisinopril 10 Mg Tablet) 10 mg PO DAILY [facility]; Protocol Last Admin: 11/28/23 09:22 Dose: 10 mg [place] Carbonate ([place] Carbonate 300 Mg Tablet) 150 mg PO DAILY [facility] [place] Carbonate ([place] Carbonate Er 300 Mg Tablet.Er) 300 mg PO BEDTIME [facility] Loratadine (Loratadine 10 Mg Tablet) 10 mg PO DAILY PRN PRN Reason: Allergic Reaction Magnesium Hydroxide (Milk Of Magnesia 30 Ml Oral.Susp) 30 ml PO DAILY PRN PRN Reason: Constipation Magnesium Oxide (Magnesium Oxide 400 Mg Tablet) 400 mg PO DAILY [facility] Last Admin: 11/28/23 09:22 Dose: 400 mg Olanzapine (Olanzapine 5 Mg Tablet) 5 mg PO BEDTIME [facility] Last Admin: 11/28/23 00:40 Dose: 5 mg Olanzapine (Olanzapine 5 Mg Tablet) 5 mg PO Q4H PRN PRN Reason: Psychosis Last Admin: 11/26/23 21:24 Dose: 5 mg Propranolol HCl (Propranolol Hcl 40 Mg Tablet) 80 mg PO TID [facility]; Protocol Last Admin: 11/28/23 14:42 Dose: Not Given Risperidone (Risperidone 1 Mg Tablet) 1 mg PO DAILY [facility] Last Admin: 11/28/23 09:20 Dose: 1 mg Trazodone HCl (Trazodone Hcl 50 Mg Tablet) 50 mg PO BEDTIME MRX1 PRN PRN Reason: Insomnia Last Admin: 11/28/23 00:40 Dose: 50 mg Allergies Allergies Allergy/AdvReac Type Severity Reaction Status Date / Time haloperidol [From Haldol] AdvReac Unknown Verified 10/28/20 06:32 Assessment & Plan Assessment & Plan (1) Schizoaffective disorder, bipolar type: Status: Acute Code(s): F25.0 - Schizoaffective disorder, bipolar type Plan 11/14: continue/restart outpt meds. medical med changes as per hospitalist recommendation. anticipate improvement with presumed Sx attributable to mental illness and lack of compliance with medications. if no improvement as lithium and VPA levels enter therapeutic range, will need to consider delirium as Dx and return to medical w/u for etiology. 11/15: Ammonia level 22 repeat electrolytes continue Depakote olanzapine would benefit from clarification of antipsychotic dosing and response. 11/16: continue current Tx 11/17: no change in presentation. continue current mgmt. 11/18: much more organized and linear, lucid, today. continue current mgmt. 11/19: continue more organized and lucid. restart citalopram/escitalopram. check labs tonight. 11/20 continue tx. may benefit from increase in risperidone. 11/21: VPA level 18.8 on 11/19, lithium 0.4. increase VPA dosing from 1500 mg to 2000 mg daily. linear, organized, signed CV today. 11/22: continues more organized and reality-based. continue current mgmt. 11/23: no change from yesterday, stable presentation. c/o dry eyes, drops PRN ordered. 11/24: Continue current regimen and plans 11/25: Continue current regimen and plans 11/26: check labs. remains manic. 11/27: VPA 58.5; increase VPA dosing to 2250 at 6 pm. lithium 0.52; increase lithium to 150/300. remains with attenuated arnoldo. glucose persistently elevated but pt not regularly taking lantus. will attempt to manage with more aggressive SSI. Reason for continued inpatient stay Substantial Risk for: inability to function, rapid decompensation and med/psych decompensation Time Spent With Patient Time: Total time managing care of this patient today __25__ minutes.
[2023-11-28 16:38] LABS: Glucose, Whole Blood 278 mg/dL (60-115)
[2023-11-28] MEDS: Divalproex Sodium 250 MG TABLET.DR PO (18:47)
[2023-11-28] MEDS: Divalproex Sodium 500 MG TABLET.DR 2000 MG PO (18:47)
[2023-11-28 21:00] VITALS: BP 121/60; PULSE 81; RESP 16; TEMP 37; O2SAT 94
[2023-11-28] MEDS: Lithium Carbonate ER 300 MG TABLET.ER PO (21:03)
[2023-11-28] MEDS: Insulin Glargine,Hum.rec.anlog 100 UNIT/ML 10 ML VIAL 20 UNIT SUBCUT (21:03)
[2023-11-28 21:04] VITALS: BP 121/60; PULSE 81
[2023-11-28] MEDS: Propranolol HCL 40 MG TABLET 80 MG PO (21:04)
[2023-11-28 21:17] LABS: Glucose, Whole Blood 244 mg/dL (60-115)
--- NOTE | 2023-11-28 21:42 | PC.NURSE ---
allowed for HS POC and administration of lantus. refused short acting insulin.
[2023-11-29] MEDS: traZODone HCL 50 MG TABLET PO ×2 (02:20→21:00)
[2023-11-29] MEDS: OLANZapine 5 MG TABLET PO ×2 (02:20→21:00)
[2023-11-29] MEDS: Levothyroxine Sodium 125 MCG TABLET PO (06:46)
[2023-11-29 07:43] VITALS: BP 135/77; PULSE 76; RESP 16; TEMP 36.4; O2SAT 95
[2023-11-29] MEDS: Propranolol HCL 40 MG TABLET 80 MG PO ×2 (09:02→21:00)
[2023-11-29] MEDS: Magnesium Oxide 400 MG TABLET PO (09:02)
[2023-11-29] MEDS: lisinopriL 10 MG TABLET PO (09:02)
[2023-11-29] MEDS: risperiDONE 1 MG TABLET PO (09:02)
[2023-11-29] MEDS: Escitalopram Oxalate 5 MG TABLET PO (09:02)
[2023-11-29] MEDS: Lithium Carbonate 300 MG TABLET 150 MG PO (09:02)
[2023-11-29] MEDS: Insulin Lispro 100 UNIT/ML 3 ML VIAL SUBCUT ×3 (09:05→18:07)
[2023-11-29] MEDS: Insulin Glargine,Hum.rec.anlog 100 UNIT/ML 10 ML VIAL 40 UNIT SUBCUT (09:05)
[2023-11-29 13:08] LABS: Glucose, Whole Blood 274 mg/dL (60-115)
[2023-11-29 13:08] LABS: Glucose, Whole Blood 200 mg/dL (60-115)
[2023-11-29 16:30] VITALS: BP 106/51; PULSE 88; RESP 18; TEMP 36.5; O2SAT 96
--- NOTE | 2023-11-29 16:38 | P.PNPSI_ITS ---
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 calm, cooperative. reports everything is well, no complaints or requests. MD encouraged pt to comply with DM mgmt, insulin regimen. per staff, POC 447 yesterday. got lispro 14 units. angry/irritable eves. took lantus, refused lispro at NOC. slept about 7 hours total. Mental Status Exam Mental Status Exam Narrative: adequately dressed and groomed. largely edentulous. cooperative. no PMA/PMR. speech nml rate, decr amount. nml loudness, tone, latency. thoughts organized and linear today, some fanciful material. affect full range, normo-intense, non-labile. mood euphoric. no SI/SIBI/HI/AVH expressed. Diagnostics Vital Signs (24Hr): Vital Signs - 24 hr 11/28/23 21:00 11/28/23 21:04 11/29/23 07:43 Temperature 98.6 F 97.6 F Pulse Rate 81 81 76 Respiratory Rate 16 16 Blood Pressure 121/60 121/60 135/77 Pulse Oximetry 94 95 Oxygen Delivery Method Room Air Room Air 11/29/23 16:30 Temperature 97.7 F Pulse Rate 88 Respiratory Rate 18 Blood Pressure 106/51 L Pulse Oximetry 96 Oxygen Delivery Method Room Air BMI result Body Mass Index 40.1 Labs 11/27/23 15:52 11/27/23 15:52 Labs: Laboratory Results - last 48 hr 11/27/23 11/27/23 11/28/23 15:52 17:45 08:34 POC Glucose 191 H 263 H Valproic Acid 58.5 [place] 0.52 L 11/28/23 11/28/23 11/28/23 12:49 16:34 21:02 POC Glucose 447 H* 278 H 244 H Valproic Acid [place] 11/29/23 11/29/23 08:31 13:03 POC Glucose 200 H 274 H Valproic Acid [place] Medications Medications Current Medications Acetaminophen (Acetaminophen 325 Mg Tablet) 650 mg PO Q6H PRN PRN Reason: Headache/Pain Mild Scale (1-3) Al Hydroxide/Mg Hydroxide (Magnesium Hydrox/Alum Hydrox 30 Ml Oral.Susp) 30 ml PO Q6H PRN PRN Reason: Heartburn/Nausea Artificial Tears (Artificial Tears 15 Ml Drops) 1 drop EYE-BOTH Q4H PRN PRN Reason: dry eyes Last Admin: 11/24/23 14:06 Dose: 1 drop Divalproex Sodium (Divalproex Sodium 500 Mg Tablet.) 2,000 mg PO DAILY@1800 [facility] Last Admin: 11/28/23 18:47 Dose: 2,000 mg Divalproex Sodium (Divalproex Sodium 250 Mg Tablet.) 250 mg PO DAILY@1800 [facility] Last Admin: 11/28/23 18:47 Dose: 250 mg Escitalopram Oxalate (Escitalopram Oxalate 5 Mg Tablet) 5 mg PO DAILY [facility] Last Admin: 11/29/23 09:02 Dose: 5 mg Glucose (Glucose Gel 15 Gm Gel..Gram.) 15 gm PO Q15M PRN; Protocol PRN Reason: per Hypoglycemia Standing Ord. Hydroxyzine HCl (Hydroxyzine Hcl 25 Mg Tablet) 25 mg PO Q6H PRN PRN Reason: Anxiety Last Admin: 11/28/23 22:06 Dose: 25 mg Hydroxyzine HCl (Hydroxyzine Hcl 50 Mg Tablet) 50 mg PO BEDTIME [facility] Last Admin: 11/28/23 21:04 Dose: 50 mg Insulin Glargine (Insulin Glargine,Hum.Rec.Anlog 100 Unit/Ml 10 Ml Vial) 40 unit SUBCUT DAILY [facility] Last Admin: 11/29/23 09:05 Dose: 40 unit Insulin Glargine (Insulin Glargine,Hum.Rec.Anlog 100 Unit/Ml 10 Ml Vial) 20 unit SUBCUT BEDTIME [facility] Last Admin: 11/28/23 21:03 Dose: 20 unit Insulin Human Lispro (Insulin Lispro 100 Unit/Ml 3 Ml Vial) 0 unit SUBCUT QIDACHS [facility]; Protocol Last Admin: 11/29/23 13:10 Dose: 8 unit Levothyroxine Sodium (Levothyroxine Sodium 125 Mcg Tablet) 125 mcg PO DAILY@0600 [facility] Last Admin: 11/29/23 06:46 Dose: 125 mcg Lisinopril (Lisinopril 10 Mg Tablet) 10 mg PO DAILY [facility]; Protocol Last Admin: 11/29/23 09:02 Dose: 10 mg [place] Carbonate ([place] Carbonate 300 Mg Tablet) 150 mg PO DAILY [facility] Last Admin: 11/29/23 09:02 Dose: 150 mg [place] Carbonate ([place] Carbonate Er 300 Mg Tablet.Er) 300 mg PO BEDTIME [facility] Last Admin: 11/28/23 21:03 Dose: 300 mg Loratadine (Loratadine 10 Mg Tablet) 10 mg PO DAILY PRN PRN Reason: Allergic Reaction Magnesium Hydroxide (Milk Of Magnesia 30 Ml Oral.Susp) 30 ml PO DAILY PRN PRN Reason: Constipation Magnesium Oxide (Magnesium Oxide 400 Mg Tablet) 400 mg PO DAILY [facility] Last Admin: 11/29/23 09:02 Dose: 400 mg Olanzapine (Olanzapine 5 Mg Tablet) 5 mg PO BEDTIME [facility] Last Admin: 11/28/23 21:04 Dose: 5 mg Olanzapine (Olanzapine 5 Mg Tablet) 5 mg PO Q4H PRN PRN Reason: Psychosis Last Admin: 11/29/23 02:20 Dose: 5 mg Propranolol HCl (Propranolol Hcl 40 Mg Tablet) 80 mg PO TID [facility]; Protocol Last Admin: 11/29/23 16:36 Dose: Not Given Risperidone (Risperidone 1 Mg Tablet) 1 mg PO DAILY [facility] Last Admin: 11/29/23 09:02 Dose: 1 mg Trazodone HCl (Trazodone Hcl 50 Mg Tablet) 50 mg PO BEDTIME MRX1 PRN PRN Reason: Insomnia Last Admin: 11/29/23 02:20 Dose: 50 mg Allergies Allergies Allergy/AdvReac Type Severity Reaction Status Date / Time haloperidol [From Haldol] AdvReac Unknown Verified 10/28/20 06:32 Assessment & Plan Assessment & Plan (1) Schizoaffective disorder, bipolar type: Status: Acute Code(s): F25.0 - Schizoaffective disorder, bipolar type Plan 11/14: continue/restart outpt meds. medical med changes as per hospitalist recommendation. anticipate improvement with presumed Sx attributable to mental illness and lack of compliance with medications. if no improvement as lithium and VPA levels enter therapeutic range, will need to consider delirium as Dx and return to medical w/u for etiology. 11/15: Ammonia level 22 repeat electrolytes continue Depakote olanzapine would benefit from clarification of antipsychotic dosing and response. 11/16: continue current Tx 11/17: no change in presentation. continue current mgmt. 11/18: much more organized and linear, lucid, today. continue current mgmt. 11/19: continue more organized and lucid. restart citalopram/escitalopram. check labs tonight. 11/20 continue tx. may benefit from increase in risperidone. 11/21: VPA level 18.8 on 11/19, lithium 0.4. increase VPA dosing from 1500 mg to 2000 mg daily. linear, organized, signed CV today. 11/22: continues more organized and reality-based. continue current mgmt. 11/23: no change from yesterday, stable presentation. c/o dry eyes, drops PRN ordered. 11/24: Continue current regimen and plans 11/25: Continue current regimen and plans 11/26: check labs. remains manic. 11/27: VPA 58.5; increase VPA dosing to 2250 at 6 pm. lithium 0.52; increase lithium to 150/300. remains with attenuated arnoldo. glucose persistently elevated but pt not regularly taking lantus. will attempt to manage with more aggressive SSI. 11/28: no change in presentation. continue current mgmt. Reason for continued inpatient stay Substantial Risk for: inability to function and med/psych decompensation Time Spent With Patient Time: Total time managing care of this patient today __25__ minutes.
[2023-11-29 17:52] LABS: Glucose, Whole Blood 417 mg/dL (60-115)
[2023-11-29] MEDS: Insulin Lispro 100 UNIT/ML 3 ML VIAL 10 UNIT SUBCUT (18:07)
[2023-11-29] MEDS: Divalproex Sodium 500 MG TABLET.DR 2000 MG PO (18:08)
[2023-11-29] MEDS: Divalproex Sodium 250 MG TABLET.DR PO (18:08)
[2023-11-29 20:00] VITALS: BP 143/61; PULSE 91; RESP 16; TEMP 36.4; O2SAT 97
[2023-11-29] MEDS: hydrOXYzine HCL 25 MG TABLET PO (21:00)
[2023-11-29] MEDS: Lithium Carbonate ER 300 MG TABLET.ER PO (21:00)
[2023-11-29] MEDS: hydrOXYzine HCL 50 MG TABLET PO (21:00)
[2023-11-29 21:13] LABS: Glucose, Whole Blood 271 mg/dL (60-115)
[2023-11-30] MEDS: Levothyroxine Sodium 125 MCG TABLET PO (06:18)
[2023-11-30 07:45] VITALS: BP 125/55; PULSE 96; RESP 12; TEMP 37; O2SAT 93
[2023-11-30 07:54] LABS: Glucose, Whole Blood 315 mg/dL (60-115)
[2023-11-30] MEDS: Insulin Lispro 100 UNIT/ML 3 ML VIAL SUBCUT ×2 (09:23→13:11)
[2023-11-30] MEDS: Insulin Glargine,Hum.rec.anlog 100 UNIT/ML 10 ML VIAL 45 UNIT SUBCUT (09:23)
[2023-11-30 11:32] VITALS: BP 190/94; PULSE 107
[2023-11-30 11:34] VITALS: BP 190/94; PULSE 107
[2023-11-30] MEDS: Propranolol HCL 40 MG TABLET 80 MG PO ×2 (11:34→20:41)
[2023-11-30] MEDS: lisinopriL 10 MG TABLET PO (11:34)
[2023-11-30 13:01] LABS: Glucose, Whole Blood 211 mg/dL (60-115)
--- NOTE | 2023-11-30 15:02 | HO.PSYCHPN ---
Subjective Subjective Date of Service: 11/30/23 Reason For Visit: Psychosis Interim History: calm, cooperative. somewhat irritable, dismissive. denies any problems or concerns. per staff, taking meds aside from insulin with regularity. eating well. accepting of all care during days. slept well. refused insulin and propranolol eves. Mental Status Exam Mental Status Exam Narrative: adequately dressed and groomed. largely edentulous. cooperative. no PMA/PMR. speech nml rate, decr amount. nml loudness, tone, latency. thoughts disorganized today, some fanciful material. affect full range, normo-intense, non-labile. mood irritable. no SI/SIBI/HI/AVH expressed. Diagnostics Vital Signs (24Hr): Vital Signs - 24 hr 11/29/23 16:30 11/29/23 20:00 11/30/23 07:45 Temperature 97.7 F 97.6 F 98.6 F Pulse Rate 88 91 96 Respiratory Rate 18 16 12 Blood Pressure 106/51 L 143/61 H 125/55 L Pulse Oximetry 96 97 93 Oxygen Delivery Method Room Air Room Air Room Air 11/30/23 11:32 11/30/23 11:34 11/30/23 11:34 Temperature Pulse Rate 107 H 107 H Respiratory Rate Blood Pressure 190/94 H 190/94 H 190/94 H Pulse Oximetry Oxygen Delivery Method BMI result Body Mass Index 40.1 Labs 11/27/23 15:52 11/27/23 15:52 Labs: Laboratory Results - last 48 hr 11/28/23 11/28/23 11/29/23 16:34 21:02 08:31 POC Glucose 278 H 244 H 200 H 11/29/23 11/29/23 11/29/23 13:03 17:48 20:57 POC Glucose 274 H 417 H* 271 H 11/30/23 11/30/23 07:46 12:55 POC Glucose 315 H 211 H Medications Medications Current Medications Acetaminophen (Acetaminophen 325 Mg Tablet) 650 mg PO Q6H PRN PRN Reason: Headache/Pain Mild Scale (1-3) Al Hydroxide/Mg Hydroxide (Magnesium Hydrox/Alum Hydrox 30 Ml Oral.Susp) 30 ml PO Q6H PRN PRN Reason: Heartburn/Nausea Artificial Tears (Artificial Tears 15 Ml Drops) 1 drop EYE-BOTH Q4H PRN PRN Reason: dry eyes Last Admin: 11/24/23 14:06 Dose: 1 drop Divalproex Sodium (Divalproex Sodium 500 Mg Tablet.) 2,000 mg PO DAILY@1800 [facility] Last Admin: 11/29/23 18:08 Dose: 2,000 mg Divalproex Sodium (Divalproex Sodium 250 Mg Tablet.) 250 mg PO DAILY@1800 [facility] Last Admin: 11/29/23 18:08 Dose: 250 mg Escitalopram Oxalate (Escitalopram Oxalate 5 Mg Tablet) 5 mg PO DAILY [facility] Last Admin: 11/30/23 10:22 Dose: Not Given Glucose (Glucose Gel 15 Gm Gel..Gram.) 15 gm PO Q15M PRN; Protocol PRN Reason: per Hypoglycemia Standing Ord. Hydroxyzine HCl (Hydroxyzine Hcl 25 Mg Tablet) 25 mg PO Q6H PRN PRN Reason: Anxiety Last Admin: 11/29/23 21:00 Dose: 25 mg Hydroxyzine HCl (Hydroxyzine Hcl 50 Mg Tablet) 50 mg PO BEDTIME [facility] Last Admin: 11/29/23 21:00 Dose: 50 mg Insulin Glargine (Insulin Glargine,Hum.Rec.Anlog 100 Unit/Ml 10 Ml Vial) 45 unit SUBCUT DAILY [facility] Last Admin: 11/30/23 09:23 Dose: 45 unit Insulin Glargine (Insulin Glargine,Hum.Rec.Anlog 100 Unit/Ml 10 Ml Vial) 25 unit SUBCUT BEDTIME [facility] Last Admin: 11/29/23 21:04 Dose: Not Given Insulin Human Lispro (Insulin Lispro 100 Unit/Ml 3 Ml Vial) 0 unit SUBCUT QIDACHS [facility]; Protocol Last Admin: 11/30/23 13:11 Dose: 6 unit Levothyroxine Sodium (Levothyroxine Sodium 125 Mcg Tablet) 125 mcg PO DAILY@0600 [facility] Last Admin: 11/30/23 06:18 Dose: 125 mcg Lisinopril (Lisinopril 10 Mg Tablet) 10 mg PO DAILY [facility]; Protocol Last Admin: 11/30/23 11:34 Dose: 10 mg [place] Carbonate ([place] Carbonate 300 Mg Tablet) 150 mg PO DAILY [facility] Last Admin: 11/30/23 10:23 Dose: Not Given [place] Carbonate ([place] Carbonate Er 300 Mg Tablet.Er) 300 mg PO BEDTIME [facility] Last Admin: 11/29/23 21:00 Dose: 300 mg Loratadine (Loratadine 10 Mg Tablet) 10 mg PO DAILY PRN PRN Reason: Allergic Reaction Magnesium Hydroxide (Milk Of Magnesia 30 Ml Oral.Susp) 30 ml PO DAILY PRN PRN Reason: Constipation Magnesium Oxide (Magnesium Oxide 400 Mg Tablet) 400 mg PO DAILY [facility] Last Admin: 11/30/23 10:23 Dose: Not Given Olanzapine (Olanzapine 5 Mg Tablet) 5 mg PO BEDTIME [facility] Last Admin: 11/29/23 21:00 Dose: 5 mg Olanzapine (Olanzapine 5 Mg Tablet) 5 mg PO Q4H PRN PRN Reason: Psychosis Last Admin: 11/29/23 02:20 Dose: 5 mg Propranolol HCl (Propranolol Hcl 40 Mg Tablet) 80 mg PO TID [facility]; Protocol Last Admin: 11/30/23 11:34 Dose: 80 mg Risperidone (Risperidone 1 Mg Tablet) 1 mg PO DAILY [facility] Last Admin: 11/30/23 10:23 Dose: Not Given Trazodone HCl (Trazodone Hcl 50 Mg Tablet) 50 mg PO BEDTIME MRX1 PRN PRN Reason: Insomnia Last Admin: 11/29/23 21:00 Dose: 50 mg Allergies Allergies Allergy/AdvReac Type Severity Reaction Status Date / Time haloperidol [From Haldol] AdvReac Unknown Verified 10/28/20 06:32 Assessment & Plan Assessment & Plan (1) Schizoaffective disorder, bipolar type: Status: Acute Code(s): F25.0 - Schizoaffective disorder, bipolar type Plan 11/14: continue/restart outpt meds. medical med changes as per hospitalist recommendation. anticipate improvement with presumed Sx attributable to mental illness and lack of compliance with medications. if no improvement as lithium and VPA levels enter therapeutic range, will need to consider delirium as Dx and return to medical w/u for etiology. 11/15: Ammonia level 22 repeat electrolytes continue Depakote olanzapine would benefit from clarification of antipsychotic dosing and response. 11/16: continue current Tx 11/17: no change in presentation. continue current mgmt. 11/18: much more organized and linear, lucid, today. continue current mgmt. 11/19: continue more organized and lucid. restart citalopram/escitalopram. check labs tonight. 11/20 continue tx. may benefit from increase in risperidone. 11/21: VPA level 18.8 on 11/19, lithium 0.4. increase VPA dosing from 1500 mg to 2000 mg daily. linear, organized, signed CV today. 11/22: continues more organized and reality-based. continue current mgmt. 11/23: no change from yesterday, stable presentation. c/o dry eyes, drops PRN ordered. 11/24: Continue current regimen and plans 11/25: Continue current regimen and plans 11/26: check labs. remains manic. 11/27: VPA 58.5; increase VPA dosing to 2250 at 6 pm. lithium 0.52; increase lithium to 150/300. remains with attenuated arnoldo. glucose persistently elevated but pt not regularly taking lantus. will attempt to manage with more aggressive SSI. 11/28: no change in presentation. continue current mgmt. 11/29: variable presentation. was euphoric yesterday, more irritable today. continue current mgmt. check labs again monday cecilia. Reason for continued inpatient stay Substantial Risk for: inability to function, rapid decompensation and med/psych decompensation Time Spent With Patient Time: Total time managing care of this patient today __25__ minutes.
[2023-11-30 17:57] LABS: Glucose, Whole Blood 136 mg/dL (60-115)
[2023-11-30] MEDS: Divalproex Sodium 500 MG TABLET.DR 2000 MG PO (19:24)
[2023-11-30 19:25] VITALS: BP 128/61; PULSE 72; RESP 16; TEMP 36.1; O2SAT 94
[2023-11-30 20:41] VITALS: BP 128/61; PULSE 72
[2023-11-30] MEDS: hydrOXYzine HCL 50 MG TABLET PO (20:41)
[2023-11-30] MEDS: Lithium Carbonate ER 300 MG TABLET.ER PO (20:41)
[2023-11-30] MEDS: hydrOXYzine HCL 25 MG TABLET PO (20:41)
[2023-11-30] MEDS: Divalproex Sodium 250 MG TABLET.DR PO (20:42)
[2023-11-30] MEDS: traZODone HCL 50 MG TABLET PO (20:42)
[2023-11-30] MEDS: Insulin Glargine,Hum.rec.anlog 100 UNIT/ML 10 ML VIAL 25 UNIT SUBCUT (20:43)
[2023-12-01] MEDS: Levothyroxine Sodium 125 MCG TABLET PO (05:40)
[2023-12-01 07:37] LABS: Glucose, Whole Blood 183 mg/dL (60-115)
[2023-12-01 08:00] VITALS: BP 121/58; PULSE 74; RESP 18; TEMP 36.4; O2SAT 95
[2023-12-01] MEDS: Insulin Lispro 100 UNIT/ML 3 ML VIAL SUBCUT ×4 (08:37→23:02)
[2023-12-01] MEDS: Insulin Glargine,Hum.rec.anlog 100 UNIT/ML 10 ML VIAL 45 UNIT SUBCUT (08:37)
[2023-12-01 12:18] LABS: Glucose, Whole Blood 253 mg/dL (60-115)
--- NOTE | 2023-12-01 13:47 | P.PNPSI_ITS ---
Subjective Subjective Date of Service: 12/01/23 Reason For Visit: Psychosis Interim History: no change in presentation. reminded to take meds and insulin, informed of plan to draw labs soon. asks to walk, get dressed, and relax. pt informed of opportunities for walking and getting outside, as well as relaxing and socializing on the unit. discussed with RN getting pt some clothes from donations. per staff, no dep/anx. +RIS. irritable, labile. took insulin yesterday. Mental Status Exam Mental Status Exam Narrative: adequately dressed and groomed. largely edentulous. cooperative. no PMA/PMR. speech nml rate, decr amount. nml loudness, tone, latency. thoughts more organized today, no fanciful material. affect constricted, normo-intense, non- labile. mood less irritable. no SI/SIBI/HI/AVH expressed. Diagnostics Vital Signs (24Hr): Vital Signs - 24 hr 11/30/23 19:25 11/30/23 20:41 12/01/23 08:00 Temperature 97.0 F 97.5 F Pulse Rate 72 72 74 Respiratory Rate 16 18 Blood Pressure 128/61 128/61 121/58 L Pulse Oximetry 94 95 Oxygen Delivery Method Room Air Room Air BMI result Body Mass Index 40.1 Labs 11/27/23 15:52 11/27/23 15:52 Labs: Laboratory Results - last 48 hr 11/29/23 11/29/23 11/30/23 17:48 20:57 07:46 POC Glucose 417 H* 271 H 315 H 11/30/23 11/30/23 12/01/23 12:55 17:52 07:33 POC Glucose 211 H 136 H 183 H 12/01/23 12:07 POC Glucose 253 H Medications Medications Current Medications Acetaminophen (Acetaminophen 325 Mg Tablet) 650 mg PO Q6H PRN PRN Reason: Headache/Pain Mild Scale (1-3) Al Hydroxide/Mg Hydroxide (Magnesium Hydrox/Alum Hydrox 30 Ml Oral.Susp) 30 ml PO Q6H PRN PRN Reason: Heartburn/Nausea Artificial Tears (Artificial Tears 15 Ml Drops) 1 drop EYE-BOTH Q4H PRN PRN Reason: dry eyes Last Admin: 11/24/23 14:06 Dose: 1 drop Divalproex Sodium (Divalproex Sodium 500 Mg Tablet.) 2,000 mg PO DAILY@1800 [facility] [place] Last Admin: 11/30/23 19:24 Dose: 2,000 mg Divalproex Sodium (Divalproex Sodium 250 Mg Tablet.) 250 mg PO DAILY@1800 [facility] [place] Last Admin: 11/30/23 20:42 Dose: 250 mg Escitalopram Oxalate (Escitalopram Oxalate 5 Mg Tablet) 5 mg PO DAILY [facility] [place] Last Admin: 12/01/23 08:44 Dose: Not Given Glucose (Glucose Gel 15 Gm Gel..Gram.) 15 gm PO Q15M PRN; Protocol PRN Reason: per Hypoglycemia Standing Ord. Hydroxyzine HCl (Hydroxyzine Hcl 25 Mg Tablet) 25 mg PO Q6H PRN PRN Reason: Anxiety Last Admin: 11/30/23 20:41 Dose: 25 mg Hydroxyzine HCl (Hydroxyzine Hcl 50 Mg Tablet) 50 mg PO BEDTIME [facility] [place] Last Admin: 11/30/23 20:41 Dose: 50 mg Insulin Glargine (Insulin Glargine,Hum.Rec.Anlog 100 Unit/Ml 10 Ml Vial) 45 unit SUBCUT DAILY [facility] [place] Last Admin: 12/01/23 08:37 Dose: 45 unit Insulin Glargine (Insulin Glargine,Hum.Rec.Anlog 100 Unit/Ml 10 Ml Vial) 25 unit SUBCUT BEDTIME [facility] [place] Last Admin: 11/30/23 20:43 Dose: 25 unit Insulin Human Lispro (Insulin Lispro 100 Unit/Ml 3 Ml Vial) 0 unit SUBCUT QIDACHS [facility] [place]; Protocol Last Admin: 12/01/23 12:22 Dose: 8 unit Levothyroxine Sodium (Levothyroxine Sodium 125 Mcg Tablet) 125 mcg PO DAILY@0600 [facility] [place] Last Admin: 12/01/23 05:40 Dose: 125 mcg Lisinopril (Lisinopril 10 Mg Tablet) 10 mg PO DAILY [facility] [place]; Protocol Last Admin: 12/01/23 08:44 Dose: Not Given [place] Carbonate ([place] Carbonate 300 Mg Tablet) 150 mg PO DAILY [facility] [place] Last Admin: 12/01/23 08:45 Dose: Not Given [place] Carbonate ([place] Carbonate Er 300 Mg Tablet.Er) 300 mg PO BEDTIME [facility] [place] Last Admin: 11/30/23 20:41 Dose: 300 mg Loratadine (Loratadine 10 Mg Tablet) 10 mg PO DAILY PRN PRN Reason: Allergic Reaction Magnesium Hydroxide (Milk Of Magnesia 30 Ml Oral.Susp) 30 ml PO DAILY PRN PRN Reason: Constipation Magnesium Oxide (Magnesium Oxide 400 Mg Tablet) 400 mg PO DAILY [facility] Last Admin: 12/01/23 08:45 Dose: Not Given Olanzapine (Olanzapine 5 Mg Tablet) 5 mg PO BEDTIME [facility] Last Admin: 11/30/23 21:01 Dose: Not Given Olanzapine (Olanzapine 5 Mg Tablet) 5 mg PO Q4H PRN PRN Reason: Psychosis Last Admin: 11/29/23 02:20 Dose: 5 mg Propranolol HCl (Propranolol Hcl 40 Mg Tablet) 80 mg PO TID [facility]; Protocol Last Admin: 12/01/23 08:45 Dose: Not Given Risperidone (Risperidone 1 Mg Tablet) 1 mg PO DAILY [facility] Last Admin: 12/01/23 08:45 Dose: Not Given Trazodone HCl (Trazodone Hcl 50 Mg Tablet) 50 mg PO BEDTIME MRX1 PRN PRN Reason: Insomnia Last Admin: 11/30/23 20:42 Dose: 50 mg Allergies Allergies Allergy/AdvReac Type Severity Reaction Status Date / Time haloperidol [From Haldol] AdvReac Unknown Verified 10/28/20 06:32 Assessment & Plan Assessment & Plan (1) Schizoaffective disorder, bipolar type: Status: Acute Code(s): F25.0 - Schizoaffective disorder, bipolar type Plan 11/14: continue/restart outpt meds. medical med changes as per hospitalist recommendation. anticipate improvement with presumed Sx attributable to mental illness and lack of compliance with medications. if no improvement as lithium and VPA levels enter therapeutic range, will need to consider delirium as Dx and return to medical w/u for etiology. 11/15: Ammonia level 22 repeat electrolytes continue Depakote olanzapine would benefit from clarification of antipsychotic dosing and response. 11/16: continue current Tx 11/17: no change in presentation. continue current mgmt. 11/18: much more organized and linear, lucid, today. continue current mgmt. 11/19: continue more organized and lucid. restart citalopram/escitalopram. check labs tonight. 11/20 continue tx. may benefit from increase in risperidone. 11/21: VPA level 18.8 on 11/19, lithium 0.4. increase VPA dosing from 1500 mg to 2000 mg daily. linear, organized, signed CV today. 11/22: continues more organized and reality-based. continue current mgmt. 11/23: no change from yesterday, stable presentation. c/o dry eyes, drops PRN ordered. 11/24: Continue current regimen and plans 11/25: Continue current regimen and plans 11/26: check labs. remains manic. 11/27: VPA 58.5; increase VPA dosing to 2250 at 6 pm. lithium 0.52; increase lithium to 150/300. remains with attenuated arnoldo. glucose persistently elevated but pt not regularly taking lantus. will attempt to manage with more aggressive SSI. 11/28: no change in presentation. continue current mgmt. 11/29: variable presentation. was euphoric yesterday, more irritable today. continue current mgmt. check labs again monday cecilia. 11/30: less irritable today, but not euphoric. encouraged to comply with insulin orders, informed of upcoming blood draw (ordered for 12/03 cecilia). continue current mgmt otherwise. Reason for continued inpatient stay Substantial Risk for: inability to function and rapid decompensation Time Spent With Patient Time: Total time managing care of this patient today __25__ minutes.
[2023-12-01 14:55] VITALS: BP 152/69; PULSE 88; O2SAT 94
[2023-12-01 14:57] VITALS: BP 152/69; PULSE 88
[2023-12-01] MEDS: Propranolol HCL 40 MG TABLET 80 MG PO (14:57)
[2023-12-01 17:14] LABS: Glucose, Whole Blood 237 mg/dL (60-115)
[2023-12-01] MEDS: Divalproex Sodium 500 MG TABLET.DR 2000 MG PO (17:38)
[2023-12-01] MEDS: Divalproex Sodium 250 MG TABLET.DR PO (17:39)
[2023-12-01 22:49] LABS: Glucose, Whole Blood 260 mg/dL (60-115)
[2023-12-01 22:55] VITALS: BP 167/74; PULSE 74; RESP 18; TEMP 36.6; O2SAT 93
[2023-12-01] MEDS: OLANZapine 5 MG TABLET PO (23:01)
[2023-12-01] MEDS: Lithium Carbonate ER 300 MG TABLET.ER PO (23:01)
[2023-12-01] MEDS: Insulin Glargine,Hum.rec.anlog 100 UNIT/ML 10 ML VIAL 25 UNIT SUBCUT (23:02)
[2023-12-01] MEDS: traZODone HCL 50 MG TABLET PO (23:02)
[2023-12-01] MEDS: hydrOXYzine HCL 50 MG TABLET PO (23:02)
[2023-12-02] MEDS: Levothyroxine Sodium 125 MCG TABLET PO (07:21)
[2023-12-02 08:00] VITALS: BP 142/65; PULSE 68; RESP 14; TEMP 36.6; O2SAT 97
[2023-12-02 08:34] LABS: Glucose, Whole Blood 189 mg/dL (60-115)
--- NOTE | 2023-12-02 08:35 | P.PNPSI_ITS ---
Subjective Subjective Date of Service: 12/02/23 Reason For Visit: Psychosis Subjective Notes: Conditional Voluntary Interim History: Pt told me she is fine- but doesn't want to take green pill- When I got the innersole fitter to come - she dismissed innersole fitter and didn't want to talk to her-but we persisted and she said that she was and that was why she didn't want to take the green pill because it is poison for the . Agreed with nursing to take shower today- Medication Compliance: Intermittent Side effects from medications: No Attending Groups: Intermittent Review of Systems Acute medical concerns: No Medical Review of Systems: unchanged Mental Status Exam Mental Status Exam Patient Appearance: Disheveled and Unkempt Patient Orientation: Person, Place and Situation Level of Consciousness: Awake Patient Behavior: Suspicious and Resistive to Care Mood Description: Euphoric Affect Description: Labile Patient Cognition Impaired: No Ability to Follow Directions: Fair Speech Pattern: Mumbled Delusions: Present (believes she is ) Thought Process: Distracted Thought Content: positive for Evasive Judgement: Poor Diagnostics Vital Signs (24Hr): Vital Signs - 24 hr 12/01/23 14:55 12/01/23 14:57 12/01/23 22:55 Temperature 97.8 F Pulse Rate 88 88 74 Respiratory Rate 18 Blood Pressure 152/69 H 152/69 H 167/74 H Pulse Oximetry 94 93 Oxygen Delivery Method Room Air Room Air 12/02/23 08:00 Temperature 97.9 F Pulse Rate 68 Respiratory Rate 14 Blood Pressure 142/65 H Pulse Oximetry 97 Oxygen Delivery Method Room Air BMI result Body Mass Index 40.1 Labs 11/27/23 15:52 11/27/23 15:52 Labs: Laboratory Results - last 48 hr 11/30/23 11/30/23 12/01/23 12:55 17:52 07:33 POC Glucose 211 H 136 H 183 H 12/01/23 12/01/23 12/01/23 12:07 17:09 22:44 POC Glucose 253 H 237 H 260 H 12/02/23 08:28 POC Glucose 189 H Medications Medications Current Medications Acetaminophen (Acetaminophen 325 Mg Tablet) 650 mg PO Q6H PRN PRN Reason: Headache/Pain Mild Scale (1-3) Al Hydroxide/Mg Hydroxide (Magnesium Hydrox/Alum Hydrox 30 Ml Oral.Susp) 30 ml PO Q6H PRN PRN Reason: Heartburn/Nausea Artificial Tears (Artificial Tears 15 Ml Drops) 1 drop EYE-BOTH Q4H PRN PRN Reason: dry eyes Last Admin: 11/24/23 14:06 Dose: 1 drop Divalproex Sodium (Divalproex Sodium 500 Mg Tablet.) 2,000 mg PO DAILY@1800 [facility] Last Admin: 12/01/23 17:38 Dose: 2,000 mg Divalproex Sodium (Divalproex Sodium 250 Mg Tablet.) 250 mg PO DAILY@1800 [facility] Last Admin: 12/01/23 17:39 Dose: 250 mg Escitalopram Oxalate (Escitalopram Oxalate 5 Mg Tablet) 5 mg PO DAILY [facility] Last Admin: 12/01/23 08:44 Dose: Not Given Glucose (Glucose Gel 15 Gm Gel..Gram.) 15 gm PO Q15M PRN; Protocol PRN Reason: per Hypoglycemia Standing Ord. Hydroxyzine HCl (Hydroxyzine Hcl 25 Mg Tablet) 25 mg PO Q6H PRN PRN Reason: Anxiety Last Admin: 11/30/23 20:41 Dose: 25 mg Hydroxyzine HCl (Hydroxyzine Hcl 50 Mg Tablet) 50 mg PO BEDTIME [facility] Last Admin: 12/01/23 23:02 Dose: 50 mg Insulin Glargine (Insulin Glargine,Hum.Rec.Anlog 100 Unit/Ml 10 Ml Vial) 45 unit SUBCUT DAILY [facility] Last Admin: 12/01/23 08:37 Dose: 45 unit Insulin Glargine (Insulin Glargine,Hum.Rec.Anlog 100 Unit/Ml 10 Ml Vial) 25 unit SUBCUT BEDTIME [facility] Last Admin: 12/01/23 23:02 Dose: 25 unit Insulin Human Lispro (Insulin Lispro 100 Unit/Ml 3 Ml Vial) 0 unit SUBCUT QIDACHS [facility]; Protocol Last Admin: 12/01/23 23:02 Dose: 8 unit Levothyroxine Sodium (Levothyroxine Sodium 125 Mcg Tablet) 125 mcg PO DAILY@0600 [facility] Last Admin: 12/02/23 07:21 Dose: 125 mcg Lisinopril (Lisinopril 10 Mg Tablet) 10 mg PO DAILY [facility]; Protocol Last Admin: 12/01/23 08:44 Dose: Not Given [place] Carbonate ([place] Carbonate 300 Mg Tablet) 150 mg PO DAILY [facility] Last Admin: 12/01/23 08:45 Dose: Not Given [place] Carbonate ([place] Carbonate Er 300 Mg Tablet.Er) 300 mg PO BEDTIME [facility] Last Admin: 12/01/23 23:01 Dose: 300 mg Loratadine (Loratadine 10 Mg Tablet) 10 mg PO DAILY PRN PRN Reason: Allergic Reaction Magnesium Hydroxide (Milk Of Magnesia 30 Ml Oral.Susp) 30 ml PO DAILY PRN PRN Reason: Constipation Magnesium Oxide (Magnesium Oxide 400 Mg Tablet) 400 mg PO DAILY [facility] Last Admin: 12/01/23 08:45 Dose: Not Given Olanzapine (Olanzapine 5 Mg Tablet) 5 mg PO BEDTIME [facility] Last Admin: 12/01/23 23:01 Dose: 5 mg Olanzapine (Olanzapine 5 Mg Tablet) 5 mg PO Q4H PRN PRN Reason: Psychosis Last Admin: 11/29/23 02:20 Dose: 5 mg Propranolol HCl (Propranolol Hcl 40 Mg Tablet) 80 mg PO TID [facility]; Protocol Last Admin: 12/02/23 00:01 Dose: Not Given Risperidone (Risperidone 1 Mg Tablet) 1 mg PO DAILY [facility] Last Admin: 12/01/23 08:45 Dose: Not Given Trazodone HCl (Trazodone Hcl 50 Mg Tablet) 50 mg PO BEDTIME MRX1 PRN PRN Reason: Insomnia Last Admin: 12/01/23 23:02 Dose: 50 mg Allergies Allergies Allergy/AdvReac Type Severity Reaction Status Date / Time haloperidol [From Haldol] AdvReac Unknown Verified 10/28/20 06:32 Assessment & Plan Assessment & Plan (1) Schizoaffective disorder, bipolar type: Status: Acute Code(s): F25.0 - Schizoaffective disorder, bipolar type Plan 11/14: continue/restart outpt meds. medical med changes as per hospitalist recommendation. anticipate improvement with presumed Sx attributable to mental illness and lack of compliance with medications. if no improvement as lithium and VPA levels enter therapeutic range, will need to consider delirium as Dx and return to medical w/u for etiology. 11/15: Ammonia level 22 repeat electrolytes continue Depakote olanzapine would benefit from clarification of antipsychotic dosing and response. 11/16: continue current Tx 11/17: no change in presentation. continue current mgmt. 11/18: much more organized and linear, lucid, today. continue current mgmt. 11/19: continue more organized and lucid. restart citalopram/escitalopram. check labs tonight. 11/20 continue tx. may benefit from increase in risperidone. 11/21: VPA level 18.8 on 11/19, lithium 0.4. increase VPA dosing from 1500 mg to 2000 mg daily. linear, organized, signed CV today. 11/22: continues more organized and reality-based. continue current mgmt. 11/23: no change from yesterday, stable presentation. c/o dry eyes, drops PRN ordered. 11/24: Continue current regimen and plans 11/25: Continue current regimen and plans 11/26: check labs. remains manic. 11/27: VPA 58.5; increase VPA dosing to 2250 at 6 pm. lithium 0.52; increase lithium to 150/300. remains with attenuated arnoldo. glucose persistently elevated but pt not regularly taking lantus. will attempt to manage with more aggressive SSI. 11/28: no change in presentation. continue current mgmt. 11/29: variable presentation. was euphoric yesterday, more irritable today. continue current mgmt. check labs again monday cecilia. 11/30: less irritable today, but not euphoric. encouraged to comply with insulin orders, informed of upcoming blood draw (ordered for 12/03 cecilia). continue current mgmt otherwise. 12/02/23-ongoing psychosis- less labile, believes one of meds is poison so refusing (propranlol) CTP Patient educated on: medication risk/benefits Informed Consent: further education needed Reason for continued inpatient stay Substantial Risk for: inability to function and rapid decompensation Time Spent With Patient Time: Total time managing care of this patient today ____ minutes.
[2023-12-02] MEDS: Insulin Glargine,Hum.rec.anlog 100 UNIT/ML 10 ML VIAL 45 UNIT SUBCUT (09:09)
[2023-12-02] MEDS: Insulin Lispro 100 UNIT/ML 3 ML VIAL SUBCUT ×3 (09:10→18:17)
[2023-12-02] MEDS: Escitalopram Oxalate 5 MG TABLET PO (09:10)
[2023-12-02] MEDS: Lithium Carbonate 300 MG TABLET 150 MG PO (09:11)
[2023-12-02 09:12] VITALS: BP 142/65
[2023-12-02] MEDS: lisinopriL 10 MG TABLET PO (09:12)
[2023-12-02] MEDS: risperiDONE 1 MG TABLET PO (09:12)
[2023-12-02] MEDS: Magnesium Oxide 400 MG TABLET PO (09:13)
[2023-12-02 12:02] LABS: Glucose, Whole Blood 284 mg/dL (60-115)
[2023-12-02 15:12] VITALS: BP 142/65; PULSE 79
[2023-12-02 15:15] VITALS: BP 142/65; PULSE 79
[2023-12-02 18:01] LABS: Glucose, Whole Blood 310 mg/dL (60-115)
[2023-12-02] MEDS: Divalproex Sodium 250 MG TABLET.DR PO (18:18)
[2023-12-02] MEDS: Divalproex Sodium 500 MG TABLET.DR 2000 MG PO (18:18)
[2023-12-02 20:15] VITALS: BP 132/58; PULSE 79; RESP 16; TEMP 36.4; O2SAT 97
[2023-12-03 09:10] LABS: Glucose, Whole Blood 270 mg/dL (60-115)
--- NOTE | 2023-12-03 12:09 | HO.PSYCHPN ---
Subjective Subjective Date of Service: 12/03/23 Reason For Visit: Psychosis Subjective Notes: Conditional Voluntary Interim History: 63 yo who thinks she is and refusing medications- Medication Compliance: No Attending Groups: No Review of Systems Acute medical concerns: No Medical Review of Systems: unchanged Mental Status Exam Mental Status Exam Narrative: lying in bed not waking up to respond to provider Diagnostics Vital Signs (24Hr): Vital Signs - 24 hr 12/02/23 15:12 12/02/23 15:15 12/02/23 20:15 Temperature 97.5 F Pulse Rate 79 79 79 Respiratory Rate 16 Blood Pressure 142/65 H 142/65 H 132/58 L Pulse Oximetry 97 Oxygen Delivery Method Room Air BMI result Body Mass Index 40.1 Labs 11/27/23 15:52 11/27/23 15:52 Labs: Laboratory Results - last 48 hr 12/01/23 12/01/23 12/01/23 12:07 17:09 22:44 POC Glucose 253 H 237 H 260 H 12/02/23 12/02/23 12/02/23 08:28 11:48 17:54 POC Glucose 189 H 284 H 310 H 12/03/23 09:05 POC Glucose 270 H Medications Medications Current Medications Acetaminophen (Acetaminophen 325 Mg Tablet) 650 mg PO Q6H PRN PRN Reason: Headache/Pain Mild Scale (1-3) Al Hydroxide/Mg Hydroxide (Magnesium Hydrox/Alum Hydrox 30 Ml Oral.Susp) 30 ml PO Q6H PRN PRN Reason: Heartburn/Nausea Artificial Tears (Artificial Tears 15 Ml Drops) 1 drop EYE-BOTH Q4H PRN PRN Reason: dry eyes Last Admin: 11/24/23 14:06 Dose: 1 drop Divalproex Sodium (Divalproex Sodium 500 Mg Tablet.) 2,000 mg PO DAILY@1800 [facility] Last Admin: 12/02/23 18:18 Dose: 2,000 mg Divalproex Sodium (Divalproex Sodium 250 Mg Tablet.) 250 mg PO DAILY@1800 [facility] Last Admin: 12/02/23 18:18 Dose: 250 mg Escitalopram Oxalate (Escitalopram Oxalate 5 Mg Tablet) 5 mg PO DAILY [facility] Last Admin: 12/03/23 09:46 Dose: Not Given Glucose (Glucose Gel 15 Gm Gel..Gram.) 15 gm PO Q15M PRN; Protocol PRN Reason: per Hypoglycemia Standing Ord. Hydroxyzine HCl (Hydroxyzine Hcl 25 Mg Tablet) 25 mg PO Q6H PRN PRN Reason: Anxiety Last Admin: 11/30/23 20:41 Dose: 25 mg Hydroxyzine HCl (Hydroxyzine Hcl 50 Mg Tablet) 50 mg PO BEDTIME [facility] Last Admin: 12/02/23 21:44 Dose: Not Given Insulin Glargine (Insulin Glargine,Hum.Rec.Anlog 100 Unit/Ml 10 Ml Vial) 45 unit SUBCUT DAILY [facility] Last Admin: 12/03/23 09:47 Dose: Not Given Insulin Glargine (Insulin Glargine,Hum.Rec.Anlog 100 Unit/Ml 10 Ml Vial) 25 unit SUBCUT BEDTIME [facility] Last Admin: 12/02/23 21:44 Dose: Not Given Insulin Human Lispro (Insulin Lispro 100 Unit/Ml 3 Ml Vial) 0 unit SUBCUT QIDACHS [facility]; Protocol Last Admin: 12/03/23 09:46 Dose: Not Given Levothyroxine Sodium (Levothyroxine Sodium 125 Mcg Tablet) 125 mcg PO DAILY@0600 [facility] Last Admin: 12/03/23 09:46 Dose: Not Given Lisinopril (Lisinopril 10 Mg Tablet) 10 mg PO DAILY [facility]; Protocol Last Admin: 12/03/23 09:47 Dose: Not Given [place] Carbonate ([place] Carbonate 300 Mg Tablet) 150 mg PO DAILY [facility] Last Admin: 12/03/23 09:48 Dose: Not Given [place] Carbonate ([place] Carbonate Er 300 Mg Tablet.Er) 300 mg PO BEDTIME [facility] Last Admin: 12/02/23 21:45 Dose: Not Given Loratadine (Loratadine 10 Mg Tablet) 10 mg PO DAILY PRN PRN Reason: Allergic Reaction Magnesium Hydroxide (Milk Of Magnesia 30 Ml Oral.Susp) 30 ml PO DAILY PRN PRN Reason: Constipation Magnesium Oxide (Magnesium Oxide 400 Mg Tablet) 400 mg PO DAILY [facility] Last Admin: 12/03/23 09:48 Dose: Not Given Olanzapine (Olanzapine 5 Mg Tablet) 5 mg PO BEDTIME [facility] Last Admin: 12/02/23 21:45 Dose: Not Given Olanzapine (Olanzapine 5 Mg Tablet) 5 mg PO Q4H PRN PRN Reason: Psychosis Last Admin: 11/29/23 02:20 Dose: 5 mg Propranolol HCl (Propranolol Hcl 40 Mg Tablet) 80 mg PO TID [facility]; Protocol Last Admin: 12/03/23 09:48 Dose: Not Given Risperidone (Risperidone 1 Mg Tablet) 1 mg PO DAILY [facility] Last Admin: 12/03/23 09:48 Dose: Not Given Trazodone HCl (Trazodone Hcl 50 Mg Tablet) 50 mg PO BEDTIME MRX1 PRN PRN Reason: Insomnia Last Admin: 12/01/23 23:02 Dose: 50 mg Allergies Allergies Allergy/AdvReac Type Severity Reaction Status Date / Time haloperidol [From Haldol] AdvReac Unknown Verified 10/28/20 06:32 Assessment & Plan Assessment & Plan (1) Schizoaffective disorder, bipolar type: Status: Acute Code(s): F25.0 - Schizoaffective disorder, bipolar type Plan 11/14: continue/restart outpt meds. medical med changes as per hospitalist recommendation. anticipate improvement with presumed Sx attributable to mental illness and lack of compliance with medications. if no improvement as lithium and VPA levels enter therapeutic range, will need to consider delirium as Dx and return to medical w/u for etiology. 11/15: Ammonia level 22 repeat electrolytes continue Depakote olanzapine would benefit from clarification of antipsychotic dosing and response. 11/16: continue current Tx 11/17: no change in presentation. continue current mgmt. 11/18: much more organized and linear, lucid, today. continue current mgmt. 11/19: continue more organized and lucid. restart citalopram/escitalopram. check labs tonight. 11/20 continue tx. may benefit from increase in risperidone. 11/21: VPA level 18.8 on 11/19, lithium 0.4. increase VPA dosing from 1500 mg to 2000 mg daily. linear, organized, signed CV today. 11/22: continues more organized and reality-based. continue current mgmt. 11/23: no change from yesterday, stable presentation. c/o dry eyes, drops PRN ordered. 11/24: Continue current regimen and plans 11/25: Continue current regimen and plans 11/26: check labs. remains manic. 11/27: VPA 58.5; increase VPA dosing to 2250 at 6 pm. lithium 0.52; increase lithium to 150/300. remains with attenuated arnoldo. glucose persistently elevated but pt not regularly taking lantus. will attempt to manage with more aggressive SSI. 11/28: no change in presentation. continue current mgmt. 11/29: variable presentation. was euphoric yesterday, more irritable today. continue current mgmt. check labs again monday cecilia. 11/30: less irritable today, but not euphoric. encouraged to comply with insulin orders, informed of upcoming blood draw (ordered for 12/03 cecilia). continue current mgmt otherwise. 12/02/23-ongoing psychosis- less labile, believes one of meds is poison so refusing (propranlol) CTP 12/02 refusing medications ongoing psychosis - Reason for continued inpatient stay Substantial Risk for: inability to function and rapid decompensation Time Spent With Patient Time: Total time managing care of this patient today ____ minutes.
[2023-12-03 12:55] LABS: Glucose, Whole Blood 297 mg/dL (60-115)
[2023-12-03] MEDS: Insulin Lispro 100 UNIT/ML 3 ML VIAL SUBCUT ×2 (13:26→21:44)
[2023-12-03 17:56] LABS: Glucose, Whole Blood 288 mg/dL (60-115)
[2023-12-03] MEDS: Divalproex Sodium 500 MG TABLET.DR 2000 MG PO (18:56)
[2023-12-03] MEDS: Divalproex Sodium 250 MG TABLET.DR PO (18:56)
[2023-12-03 20:00] VITALS: BP 177/78; PULSE 79; RESP 18; TEMP 36.6; O2SAT 97
[2023-12-03] MEDS: Propranolol HCL 40 MG TABLET 80 MG PO (21:24)
[2023-12-03] MEDS: hydrOXYzine HCL 50 MG TABLET PO (21:24)
[2023-12-03] MEDS: OLANZapine 5 MG TABLET PO (21:24)
[2023-12-03] MEDS: Lithium Carbonate ER 300 MG TABLET.ER PO (21:24)
[2023-12-03] MEDS: Insulin Glargine,Hum.rec.anlog 100 UNIT/ML 10 ML VIAL 25 UNIT SUBCUT (21:27)
[2023-12-03 21:44] LABS: Glucose, Whole Blood 305 mg/dL (60-115)
[2023-12-04] MEDS: Levothyroxine Sodium 125 MCG TABLET PO (06:09)
[2023-12-04 08:00] VITALS: BP 149/71; PULSE 64; RESP 16; TEMP 36.3; O2SAT 95
--- NOTE | 2023-12-04 16:02 | P.PNPSI_ITS ---
Subjective Subjective Date of Service: 12/04/23 Reason For Visit: Psychosis Subjective Notes: Conditional Voluntary Interim History: Reviewed with Dr. Hernandez. basket turner present. Pt observed laying in bed, talking to self loudly. Singing loudly at times. Religiously preoccupied. disorganized. Pt reports feeling amazing today; pt stated, I have desire to live and have high self esteem. I hear God is with me and you. He tells me this. I know the world is not going to end . Medication Compliance: Intermittent Attending Groups: No Review of Systems Constitutional: Reports as per HPI Eyes: Reports as per HPI Reports as per HPI Cardiovascular: Reports as per HPI Respiratory: Reports as per HPI Gastrointestinal: Reports as per HPI Genitourinary: Reports as per HPI Musculoskeletal: Reports as per HPI Skin/Breast: Reports as per HPI Reports as per HPI Psychiatric: Reports as per HPI Endocrine: Reports as per HPI Hematologic/Lymphatic: Reports as per HPI Allergic/Immunologic: Reports as per HPI Mental Status Exam Mental Status Exam Narrative: Keeping to self, laying in bed, awake. Observed responding to internal stimuli, singing loudly at times. Religiously preoccupied, disorganized. labile. disheveled. Diagnostics Vital Signs (24Hr): Vital Signs - 24 hr 12/03/23 20:00 12/04/23 08:00 Temperature 97.8 F 97.4 F Pulse Rate 79 64 Respiratory Rate 18 16 Blood Pressure 177/78 H 149/71 H Pulse Oximetry 97 95 Oxygen Delivery Method Room Air Room Air BMI result Body Mass Index 40.1 Labs 11/27/23 15:52 11/27/23 15:52 Labs: Laboratory Results - last 48 hr 12/02/23 12/03/23 12/03/23 17:54 09:05 12:50 POC Glucose 310 H 270 H 297 H 12/03/23 12/03/23 17:49 21:37 POC Glucose 288 H 305 H Medications Medications Current Medications Acetaminophen (Acetaminophen 325 Mg Tablet) 650 mg PO Q6H PRN PRN Reason: Headache/Pain Mild Scale (1-3) Al Hydroxide/Mg Hydroxide (Magnesium Hydrox/Alum Hydrox 30 Ml Oral.Susp) 30 ml PO Q6H PRN PRN Reason: Heartburn/Nausea Artificial Tears (Artificial Tears 15 Ml Drops) 1 drop EYE-BOTH Q4H PRN PRN Reason: dry eyes Last Admin: 11/24/23 14:06 Dose: 1 drop Divalproex Sodium (Divalproex Sodium 500 Mg Tablet.) 2,000 mg PO DAILY@1800 [facility] Last Admin: 12/03/23 18:56 Dose: 2,000 mg Divalproex Sodium (Divalproex Sodium 250 Mg Tablet.) 250 mg PO DAILY@1800 [facility] Last Admin: 12/03/23 18:56 Dose: 250 mg Escitalopram Oxalate (Escitalopram Oxalate 5 Mg Tablet) 5 mg PO DAILY [facility] Last Admin: 12/04/23 09:14 Dose: Not Given Glucose (Glucose Gel 15 Gm Gel..Gram.) 15 gm PO Q15M PRN; Protocol PRN Reason: per Hypoglycemia Standing Ord. Hydroxyzine HCl (Hydroxyzine Hcl 25 Mg Tablet) 25 mg PO Q6H PRN PRN Reason: Anxiety Last Admin: 11/30/23 20:41 Dose: 25 mg Hydroxyzine HCl (Hydroxyzine Hcl 50 Mg Tablet) 50 mg PO BEDTIME [facility] Last Admin: 12/03/23 21:24 Dose: 50 mg Insulin Glargine (Insulin Glargine,Hum.Rec.Anlog 100 Unit/Ml 10 Ml Vial) 45 unit SUBCUT DAILY [facility] Last Admin: 12/04/23 09:15 Dose: Not Given Insulin Glargine (Insulin Glargine,Hum.Rec.Anlog 100 Unit/Ml 10 Ml Vial) 25 unit SUBCUT BEDTIME [facility] Last Admin: 12/03/23 21:27 Dose: 25 unit Insulin Human Lispro (Insulin Lispro 100 Unit/Ml 3 Ml Vial) 0 unit SUBCUT QIDACHS [facility]; Protocol Last Admin: 12/04/23 12:56 Dose: Not Given Levothyroxine Sodium (Levothyroxine Sodium 125 Mcg Tablet) 125 mcg PO DAILY@0600 [facility] Last Admin: 12/04/23 06:09 Dose: 125 mcg Lisinopril (Lisinopril 10 Mg Tablet) 10 mg PO DAILY [facility]; Protocol Last Admin: 12/04/23 09:15 Dose: Not Given [place] Carbonate ([place] Carbonate 300 Mg Tablet) 150 mg PO DAILY [facility] Last Admin: 12/04/23 09:15 Dose: Not Given [place] Carbonate ([place] Carbonate Er 300 Mg Tablet.Er) 300 mg PO BEDTIME [facility] Last Admin: 06/23/24 21:24 Dose: 300 mg Loratadine (Loratadine 10 Mg Tablet) 10 mg PO DAILY PRN PRN Reason: Allergic Reaction Magnesium Hydroxide (Milk Of Magnesia 30 Ml Oral.Susp) 30 ml PO DAILY PRN PRN Reason: Constipation Magnesium Oxide (Magnesium Oxide 400 Mg Tablet) 400 mg PO DAILY [facility] Last Admin: 12/04/23 09:16 Dose: Not Given Olanzapine (Olanzapine 5 Mg Tablet) 5 mg PO BEDTIME [facility] Last Admin: 12/03/23 21:24 Dose: 5 mg Olanzapine (Olanzapine 5 Mg Tablet) 5 mg PO Q4H PRN PRN Reason: Psychosis Last Admin: 11/29/23 02:20 Dose: 5 mg Propranolol HCl (Propranolol Hcl 40 Mg Tablet) 80 mg PO TID SONIA; Protocol Last Admin: 12/04/23 15:13 Dose: Not Given Risperidone (Risperidone 1 Mg Tablet) 1 mg PO DAILY [facility] Last Admin: 12/04/23 09:16 Dose: Not Given Trazodone HCl (Trazodone Hcl 50 Mg Tablet) 50 mg PO BEDTIME MRX1 PRN PRN Reason: Insomnia Last Admin: 12/01/23 23:02 Dose: 50 mg Allergies Allergies Allergy/AdvReac Type Severity Reaction Status Date / Time haloperidol [From Haldol] AdvReac Unknown Verified 10/28/20 06:32 Assessment & Plan Assessment & Plan (1) Schizoaffective disorder, bipolar type: Status: Acute Code(s): F25.0 - Schizoaffective disorder, bipolar type Plan 11/14: continue/restart outpt meds. medical med changes as per hospitalist recommendation. anticipate improvement with presumed Sx attributable to mental illness and lack of compliance with medications. if no improvement as lithium and VPA levels enter therapeutic range, will need to consider delirium as Dx and return to medical w/u for etiology. 11/15: Ammonia level 22 repeat electrolytes continue Depakote olanzapine would benefit from clarification of antipsychotic dosing and response. 11/16: continue current Tx 11/17: no change in presentation. continue current mgmt. 11/18: much more organized and linear, lucid, today. continue current mgmt. 11/19: continue more organized and lucid. restart citalopram/escitalopram. check labs tonight. 11/20 continue tx. may benefit from increase in risperidone. 11/21: VPA level 18.8 on 11/19, lithium 0.4. increase VPA dosing from 1500 mg to 2000 mg daily. linear, organized, signed CV today. 11/22: continues more organized and reality-based. continue current mgmt. 11/23: no change from yesterday, stable presentation. c/o dry eyes, drops PRN ordered. 11/24: Continue current regimen and plans 11/25: Continue current regimen and plans 11/26: check labs. remains manic. 11/27: VPA 58.5; increase VPA dosing to 2250 at 6 pm. lithium 0.52; increase lithium to 150/300. remains with attenuated arnoldo. glucose persistently elevated but pt not regularly taking lantus. will attempt to manage with more aggressive SSI. 11/28: no change in presentation. continue current mgmt. 11/29: variable presentation. was euphoric yesterday, more irritable today. continue current mgmt. check labs again monday cecilia. 11/30: less irritable today, but not euphoric. encouraged to comply with insulin orders, informed of upcoming blood draw (ordered for 12/03 cecilia). continue current mgmt otherwise. 12/02/23-ongoing psychosis- less labile, believes one of meds is poison so refusing (propranlol) CTP 12/02 refusing medications ongoing psychosis - 12/03: basket turner present. Pt observed laying in bed, talking to self loudly. Singing loudly at times. Religiously preoccupied. disorganized. Pt reports feeling amazing today; pt stated, I have desire to live and have high self esteem. I hear God is with me and you. He tells me this. I know the world is not going to end . Continue to encourage medication compliance. Patient educated on: medication risk/benefits Reason for continued inpatient stay Substantial Risk for: med/psych decompensation Time Spent With Patient Time: Total time managing care of this patient today _20___ minutes.
[2023-12-04 20:00] VITALS: BP 147/82; PULSE 82; RESP 16; TEMP 36.5; O2SAT 95
[2023-12-04] MEDS: hydrOXYzine HCL 50 MG TABLET PO (20:21)
[2023-12-04] MEDS: Lithium Carbonate ER 300 MG TABLET.ER PO (20:21)
[2023-12-04] MEDS: traZODone HCL 50 MG TABLET PO (20:21)
[2023-12-04] MEDS: OLANZapine 5 MG TABLET PO (20:21)
[2023-12-04] MEDS: Propranolol HCL 40 MG TABLET 80 MG PO (20:21)
[2023-12-04] MEDS: Insulin Glargine,Hum.rec.anlog 100 UNIT/ML 10 ML VIAL 25 UNIT SUBCUT (20:35)
[2023-12-04] MEDS: Divalproex Sodium 250 MG TABLET.DR PO (20:40)
[2023-12-04] MEDS: Divalproex Sodium 500 MG TABLET.DR 2000 MG PO (20:41)
--- NOTE | 2023-12-04 20:42 | PC.NURSE ---
depakote-accepted 1800 doses now.
[2023-12-04 20:46] LABS: Glucose, Whole Blood 411 mg/dL (60-115)
--- NOTE | 2023-12-04 21:14 | PC.NURSE ---
Cely frost aware of POC AND REFUSAL OF SHORT ACTING INSULIN [facility].
[2023-12-05] MEDS: Levothyroxine Sodium 125 MCG TABLET PO (06:56)
[2023-12-05 07:30] VITALS: BP 122/72; PULSE 71; RESP 14; TEMP 36.8; O2SAT 94
--- NOTE | 2023-12-05 09:43 | HO.PSYCHPN ---
Subjective Subjective Date of Service: 12/05/23 Reason For Visit: Psychosis Subjective Notes: Conditional Voluntary Interim History: Pt refused medications this morning. she tells this keno writer / runner that she hears God's voices and he is telling her that everything is fine, that she is loved and she has a wonderful family. When asked about treatment here she states : is going great they treat me like the smith that I am. Then she asks this keno writer / runner to leave her room as she states you're not invited nor welcome here, go! Medication Compliance: Intermittent Diagnostics Vital Signs (24Hr): Vital Signs - 24 hr 12/04/23 20:00 12/05/23 07:30 Temperature 97.7 F 98.3 F Pulse Rate 82 71 Respiratory Rate 16 14 Blood Pressure 147/82 H 122/72 Pulse Oximetry 95 94 Oxygen Delivery Method Room Air Room Air BMI result Body Mass Index 40.1 Labs 11/27/23 15:52 11/27/23 15:52 Labs: Laboratory Results - last 48 hr 12/03/23 12/03/23 12/03/23 12:50 17:49 21:37 POC Glucose 297 H 288 H 305 H 12/04/23 20:34 POC Glucose 411 H* Medications Medications Current Medications Acetaminophen (Acetaminophen 325 Mg Tablet) 650 mg PO Q6H PRN PRN Reason: Headache/Pain Mild Scale (1-3) Al Hydroxide/Mg Hydroxide (Magnesium Hydrox/Alum Hydrox 30 Ml Oral.Susp) 30 ml PO Q6H PRN PRN Reason: Heartburn/Nausea Artificial Tears (Artificial Tears 15 Ml Drops) 1 drop EYE-BOTH Q4H PRN PRN Reason: dry eyes Last Admin: 11/24/23 14:06 Dose: 1 drop Divalproex Sodium (Divalproex Sodium 500 Mg Tablet.) 2,000 mg PO DAILY@1800 [facility] Last Admin: 12/04/23 20:41 Dose: 2,000 mg Divalproex Sodium (Divalproex Sodium 250 Mg Tablet.) 250 mg PO DAILY@1800 [facility] Last Admin: 12/04/23 20:40 Dose: 250 mg Escitalopram Oxalate (Escitalopram Oxalate 5 Mg Tablet) 5 mg PO DAILY [facility] Last Admin: 12/04/23 09:14 Dose: Not Given Glucose (Glucose Gel 15 Gm Gel..Gram.) 15 gm PO Q15M PRN; Protocol PRN Reason: per Hypoglycemia Standing Ord. Hydroxyzine HCl (Hydroxyzine Hcl 25 Mg Tablet) 25 mg PO Q6H PRN PRN Reason: Anxiety Last Admin: 11/30/23 20:41 Dose: 25 mg Hydroxyzine HCl (Hydroxyzine Hcl 50 Mg Tablet) 50 mg PO BEDTIME [facility] Last Admin: 12/04/23 20:21 Dose: 50 mg Insulin Glargine (Insulin Glargine,Hum.Rec.Anlog 100 Unit/Ml 10 Ml Vial) 45 unit SUBCUT DAILY [facility] Last Admin: 12/04/23 09:15 Dose: Not Given Insulin Glargine (Insulin Glargine,Hum.Rec.Anlog 100 Unit/Ml 10 Ml Vial) 25 unit SUBCUT BEDTIME [facility] Last Admin: 12/04/23 20:35 Dose: 25 unit Insulin Human Lispro (Insulin Lispro 100 Unit/Ml 3 Ml Vial) 0 unit SUBCUT QIDACHS [facility]; Protocol Last Admin: 12/04/23 21:11 Dose: Not Given Levothyroxine Sodium (Levothyroxine Sodium 125 Mcg Tablet) 125 mcg PO DAILY@0600 [facility] Last Admin: 12/05/23 06:56 Dose: 125 mcg Lisinopril (Lisinopril 10 Mg Tablet) 10 mg PO DAILY [facility]; Protocol Last Admin: 12/04/23 09:15 Dose: Not Given [place] Carbonate ([place] Carbonate 300 Mg Tablet) 150 mg PO DAILY [facility] Last Admin: 12/04/23 09:15 Dose: Not Given [place] Carbonate ([place] Carbonate Er 300 Mg Tablet.Er) 300 mg PO BEDTIME [facility] Last Admin: 12/04/23 20:21 Dose: 300 mg Loratadine (Loratadine 10 Mg Tablet) 10 mg PO DAILY PRN PRN Reason: Allergic Reaction Magnesium Hydroxide (Milk Of Magnesia 30 Ml Oral.Susp) 30 ml PO DAILY PRN PRN Reason: Constipation Magnesium Oxide (Magnesium Oxide 400 Mg Tablet) 400 mg PO DAILY [facility] Last Admin: 12/04/23 09:16 Dose: Not Given Olanzapine (Olanzapine 5 Mg Tablet) 5 mg PO BEDTIME [facility] Last Admin: 12/04/23 20:21 Dose: 5 mg Olanzapine (Olanzapine 5 Mg Tablet) 5 mg PO Q4H PRN PRN Reason: Psychosis Last Admin: 11/29/23 02:20 Dose: 5 mg Propranolol HCl (Propranolol Hcl 40 Mg Tablet) 80 mg PO TID [facility]ONIA; Protocol Last Admin: 12/04/23 20:21 Dose: 80 mg Risperidone (Risperidone 1 Mg Tablet) 1 mg PO DAILY [facility] Last Admin: 12/04/23 09:16 Dose: Not Given Trazodone HCl (Trazodone Hcl 50 Mg Tablet) 50 mg PO BEDTIME MRX1 PRN PRN Reason: Insomnia Last Admin: 12/04/23 20:21 Dose: 50 mg Allergies Allergies Allergy/AdvReac Type Severity Reaction Status Date / Time haloperidol [From Haldol] AdvReac Unknown Verified 10/28/20 06:32 Assessment & Plan Assessment & Plan (1) Schizoaffective disorder, bipolar type: Status: Acute Code(s): F25.0 - Schizoaffective disorder, bipolar type Plan 11/14: continue/restart outpt meds. medical med changes as per hospitalist recommendation. anticipate improvement with presumed Sx attributable to mental illness and lack of compliance with medications. if no improvement as lithium and VPA levels enter therapeutic range, will need to consider delirium as Dx and return to medical w/u for etiology. 11/15: Ammonia level 22 repeat electrolytes continue Depakote olanzapine would benefit from clarification of antipsychotic dosing and response. 11/16: continue current Tx 11/17: no change in presentation. continue current mgmt. 11/18: much more organized and linear, lucid, today. continue current mgmt. 11/19: continue more organized and lucid. restart citalopram/escitalopram. check labs tonight. 11/20 continue tx. may benefit from increase in risperidone. 11/21: VPA level 18.8 on 11/19, lithium 0.4. increase VPA dosing from 1500 mg to 2000 mg daily. linear, organized, signed CV today. 11/22: continues more organized and reality-based. continue current mgmt. 11/23: no change from yesterday, stable presentation. c/o dry eyes, drops PRN ordered. 11/24: Continue current regimen and plans 11/25: Continue current regimen and plans 11/26: check labs. remains manic. 11/27: VPA 58.5; increase VPA dosing to 2250 at 6 pm. lithium 0.52; increase lithium to 150/300. remains with attenuated arnoldo. glucose persistently elevated but pt not regularly taking lantus. will attempt to manage with more aggressive SSI. 11/28: no change in presentation. continue current mgmt. 11/29: variable presentation. was euphoric yesterday, more irritable today. continue current mgmt. check labs again monday cecilia. 11/30: less irritable today, but not euphoric. encouraged to comply with insulin orders, informed of upcoming blood draw (ordered for 12/03 cecilia). continue current mgmt otherwise. 12/02/23-ongoing psychosis- less labile, believes one of meds is poison so refusing (propranlol) CTP 12/02 refusing medications ongoing psychosis - 12/03: toll test desk worker present. Pt observed laying in bed, talking to self loudly. Singing loudly at times. Religiously preoccupied. disorganized. Pt reports feeling amazing today; pt stated, I have desire to live and have high self esteem. I hear God is with me and you. He tells me this. I know the world is not going to end . Continue to encourage medication compliance. 12/04 will increase risperidone, at least will be offered twice a day. Reason for continued inpatient stay Substantial Risk for: inability to function Time Spent With Patient Time: Total time managing care of this patient today ____ minutes.
[2023-12-05 17:28] LABS: Glucose, Whole Blood 344 mg/dL (60-115)
[2023-12-05] MEDS: Insulin Lispro 100 UNIT/ML 3 ML VIAL SUBCUT (17:30)
[2023-12-05 20:00] VITALS: BP 120/73; PULSE 72; RESP 14; TEMP 36.5; O2SAT 96
[2023-12-06 08:49] LABS: Glucose, Whole Blood 278 mg/dL (60-115)
[2023-12-06] MEDS: Insulin Lispro 100 UNIT/ML 3 ML VIAL SUBCUT ×2 (09:10→12:49)
[2023-12-06] MEDS: Insulin Glargine,Hum.rec.anlog 100 UNIT/ML 10 ML VIAL 45 UNIT SUBCUT (09:12)
[2023-12-06 12:43] LABS: Glucose, Whole Blood 300 mg/dL (60-115)
--- NOTE | 2023-12-06 13:53 | P.PNPSI_ITS ---
Subjective Subjective Date of Service: 12/06/23 Reason For Visit: Psychosis Subjective Notes: Conditional Voluntary Interim History: Pt did not sleep last night. She was disrobbing needing redirection. She continues to present internally preoccupied, zoroastrian themes, refuses medications. She also asks this program writer to leave her alone. She denies SI/HI. Review of Systems Review of Systems Yes all other systems are reviewed and are negative and Unobtainable due to mental status (has no complaints but question reliability of history given arnoldo) Constitutional: Reports as per HPI Eyes: Reports as per HPI Reports as per HPI Cardiovascular: Reports as per HPI Respiratory: Reports as per HPI Gastrointestinal: Reports as per HPI Musculoskeletal: Reports as per HPI Skin/Breast: Reports as per HPI Reports as per HPI Psychiatric: Reports as per HPI Endocrine: Reports as per HPI Hematologic/Lymphatic: Reports as per HPI Allergic/Immunologic: Reports as per HPI Mental Status Exam Mental Status Exam Patient Appearance: Disheveled and Unkempt Patient Orientation: Person, Place and Situation Level of Consciousness: Awake Patient Behavior: Suspicious and Resistive to Care Mood Description: Euphoric Affect Description: Labile Patient Cognition Impaired: No Ability to Follow Directions: Fair Speech Pattern: Mumbled Diagnostics Vital Signs (24Hr): Vital Signs - 24 hr 12/05/23 20:00 Temperature 97.7 F Pulse Rate 72 Respiratory Rate 14 Blood Pressure 120/73 Pulse Oximetry 96 Oxygen Delivery Method Room Air BMI result Body Mass Index 40.1 Labs 11/27/23 15:52 11/27/23 15:52 Labs: Laboratory Results - last 48 hr 12/04/23 12/05/23 12/06/23 20:34 17:19 08:36 POC Glucose 411 H* 344 H 278 H 12/06/23 12:39 POC Glucose 300 H Medications Medications Current Medications Acetaminophen (Acetaminophen 325 Mg Tablet) 650 mg PO Q6H PRN PRN Reason: Headache/Pain Mild Scale (1-3) Al Hydroxide/Mg Hydroxide (Magnesium Hydrox/Alum Hydrox 30 Ml Oral.Susp) 30 ml PO Q6H PRN PRN Reason: Heartburn/Nausea Artificial Tears (Artificial Tears 15 Ml Drops) 1 drop EYE-BOTH Q4H PRN PRN Reason: dry eyes Last Admin: 11/24/23 14:06 Dose: 1 drop Divalproex Sodium (Divalproex Sodium 500 Mg Tablet.) 2,000 mg PO DAILY@1800 COUNTS [facility]CLUDE 234 BEDS AT [facility] Last Admin: 12/04/23 20:41 Dose: 2,000 mg Divalproex Sodium (Divalproex Sodium 250 Mg Tablet.) 250 mg PO DAILY@1800 COUNTS [facility]CLUDE 234 BEDS AT [facility] Last Admin: 12/04/23 20:40 Dose: 250 mg Escitalopram Oxalate (Escitalopram Oxalate 5 Mg Tablet) 5 mg PO DAILY COUNTS INCLUDE 234 BEDS AT [facility] Last Admin: 12/06/23 09:26 Dose: Not Given Glucose (Glucose Gel 15 Gm Gel..Gram.) 15 gm PO Q15M PRN; Protocol PRN Reason: per Hypoglycemia Standing Ord. Hydroxyzine HCl (Hydroxyzine Hcl 25 Mg Tablet) 25 mg PO Q6H PRN PRN Reason: Anxiety Last Admin: 11/30/23 20:41 Dose: 25 mg Hydroxyzine HCl (Hydroxyzine Hcl 50 Mg Tablet) 50 mg PO BEDTIME COUNTS INCLUDE 234 BEDS AT [facility] Last Admin: 12/05/23 22:17 Dose: Not Given Insulin Glargine (Insulin Glargine,Hum.Rec.Anlog 100 Unit/Ml 10 Ml Vial) 45 unit SUBCUT DAILY COUNTS INCLUDE 234 BEDS AT [facility] Last Admin: 12/06/23 09:12 Dose: 45 unit Insulin Glargine (Insulin Glargine,Hum.Rec.Anlog 100 Unit/Ml 10 Ml Vial) 25 unit SUBCUT BEDTIME COUNTS INCLUDE 234 BEDS AT [facility] Last Admin: 12/05/23 21:31 Dose: Not Given Insulin Human Lispro (Insulin Lispro 100 Unit/Ml 3 Ml Vial) 0 unit SUBCUT QIDACHS COUNTS INCLUDE 234 BEDS AT [facility]; Protocol Last Admin: 12/06/23 12:49 Dose: 8 unit Levothyroxine Sodium (Levothyroxine Sodium 125 Mcg Tablet) 125 mcg PO DAILY@0600 COUNTS INCLUDE 234 BEDS AT [facility] Last Admin: 12/06/23 06:08 Dose: Not Given Lisinopril (Lisinopril 10 Mg Tablet) 10 mg PO DAILY COUNTS INCLUDE 234 BEDS AT [facility]; Protocol Last Admin: 12/06/23 09:26 Dose: Not Given [place] Carbonate ([place] Carbonate 300 Mg Tablet) 150 mg PO DAILY COUNTS INCLUDE 234 BEDS AT [facility] Last Admin: 12/06/23 09:26 Dose: Not Given [place] Carbonate ([place] Carbonate Er 300 Mg Tablet.Er) 300 mg PO BEDTIME COUNTS INCLUDE 234 BEDS AT [facility] Last Admin: 12/05/23 22:17 Dose: Not Given Loratadine (Loratadine 10 Mg Tablet) 10 mg PO DAILY PRN PRN Reason: Allergic Reaction Magnesium Hydroxide (Milk Of Magnesia 30 Ml Oral.Susp) 30 ml PO DAILY PRN PRN Reason: Constipation Magnesium Oxide (Magnesium Oxide 400 Mg Tablet) 400 mg PO DAILY [facility] Last Admin: 12/06/23 09:27 Dose: Not Given Olanzapine (Olanzapine 5 Mg Tablet) 5 mg PO BEDTIME [facility] Last Admin: 12/05/23 22:18 Dose: Not Given Olanzapine (Olanzapine 5 Mg Tablet) 5 mg PO Q4H PRN PRN Reason: Psychosis Last Admin: 11/29/23 02:20 Dose: 5 mg Propranolol HCl (Propranolol Hcl 40 Mg Tablet) 80 mg PO TID [facility]; Protocol Last Admin: 12/06/23 09:27 Dose: Not Given Risperidone (Risperidone 1 Mg Tablet) 1 mg PO BID [facility] Trazodone HCl (Trazodone Hcl 50 Mg Tablet) 50 mg PO BEDTIME MRX1 PRN PRN Reason: Insomnia Last Admin: 12/04/23 20:21 Dose: 50 mg Allergies Allergies Allergy/AdvReac Type Severity Reaction Status Date / Time haloperidol [From Haldol] AdvReac Unknown Verified 10/28/20 06:32 Assessment & Plan Assessment & Plan (1) Schizoaffective disorder, bipolar type: Status: Acute Code(s): F25.0 - Schizoaffective disorder, bipolar type Plan 11/14: continue/restart outpt meds. medical med changes as per hospitalist recommendation. anticipate improvement with presumed Sx attributable to mental illness and lack of compliance with medications. if no improvement as lithium and VPA levels enter therapeutic range, will need to consider delirium as Dx and return to medical w/u for etiology. 11/15: Ammonia level 22 repeat electrolytes continue Depakote olanzapine would benefit from clarification of antipsychotic dosing and response. 11/16: continue current Tx 11/17: no change in presentation. continue current mgmt. 11/18: much more organized and linear, lucid, today. continue current mgmt. 11/19: continue more organized and lucid. restart citalopram/escitalopram. check labs tonight. 11/20 continue tx. may benefit from increase in risperidone. 11/21: VPA level 18.8 on 11/19, lithium 0.4. increase VPA dosing from 1500 mg to 2000 mg daily. linear, organized, signed CV today. 11/22: continues more organized and reality-based. continue current mgmt. 11/23: no change from yesterday, stable presentation. c/o dry eyes, drops PRN ordered. 11/24: Continue current regimen and plans 11/25: Continue current regimen and plans 11/26: check labs. remains manic. 11/27: VPA 58.5; increase VPA dosing to 2250 at 6 pm. lithium 0.52; increase lithium to 150/300. remains with attenuated arnoldo. glucose persistently elevated but pt not regularly taking lantus. will attempt to manage with more aggressive SSI. 11/28: no change in presentation. continue current mgmt. 11/29: variable presentation. was euphoric yesterday, more irritable today. continue current mgmt. check labs again monday cecilia. 11/30: less irritable today, but not euphoric. encouraged to comply with insulin orders, informed of upcoming blood draw (ordered for 12/03 cecilia). continue current mgmt otherwise. 12/02/23-ongoing psychosis- less labile, believes one of meds is poison so refusing (propranlol) CTP 12/02 refusing medications ongoing psychosis - 12/03: fiber optics technician present. Pt observed laying in bed, talking to self loudly. Singing loudly at times. Religiously preoccupied. disorganized. Pt reports feeling amazing today; pt stated, I have desire to live and have high self esteem. I hear God is with me and you. He tells me this. I know the world is not going to end . Continue to encourage medication compliance. 12/04 will increase risperidone, at least will be offered twice a day. 12/05 continue current tx. pt declining medications. Reason for continued inpatient stay Substantial Risk for: inability to function Time Spent With Patient Time: Total time managing care of this patient today ____ minutes.
[2023-12-06 15:30] VITALS: BP 140/64; PULSE 85; RESP 16; TEMP 36.4; O2SAT 94
[2023-12-06 15:35] VITALS: BP 140/64; PULSE 85
[2023-12-06] MEDS: Propranolol HCL 40 MG TABLET 80 MG PO ×2 (15:35→21:37)
[2023-12-06] MEDS: Divalproex Sodium 500 MG TABLET.DR 2000 MG PO (18:29)
[2023-12-06] MEDS: Divalproex Sodium 250 MG TABLET.DR PO (18:29)
[2023-12-06 21:15] VITALS: BP 156/81; PULSE 70; RESP 16; TEMP 36.3; O2SAT 93
[2023-12-06 21:37] VITALS: BP 156/81; PULSE 80
[2023-12-06] MEDS: risperiDONE 1 MG TABLET PO (21:38)
[2023-12-06] MEDS: Lithium Carbonate ER 300 MG TABLET.ER PO (21:38)
[2023-12-06] MEDS: OLANZapine 5 MG TABLET PO (21:38)
[2023-12-06] MEDS: hydrOXYzine HCL 50 MG TABLET PO (21:38)
[2023-12-06] MEDS: traZODone HCL 50 MG TABLET PO (21:39)
[2023-12-06] MEDS: Insulin Glargine,Hum.rec.anlog 100 UNIT/ML 10 ML VIAL 25 UNIT SUBCUT (21:45)
[2023-12-06 21:47] LABS: Glucose, Whole Blood 368 mg/dL (60-115)
[2023-12-07] MEDS: OLANZapine 5 MG TABLET PO ×2 (06:10→22:05)
[2023-12-07] MEDS: Levothyroxine Sodium 125 MCG TABLET PO (06:10)
[2023-12-07 07:00] VITALS: BMI 40.0
[2023-12-07 07:20] VITALS: BP 140/65; PULSE 79; RESP 18; TEMP 36.6; O2SAT 94
[2023-12-07 08:56] LABS: Glucose, Whole Blood 437 mg/dL (60-115)
[2023-12-07] MEDS: Insulin Lispro 100 UNIT/ML 3 ML VIAL SUBCUT ×3 (09:44→22:24)
[2023-12-07] MEDS: Insulin Glargine,Hum.rec.anlog 100 UNIT/ML 10 ML VIAL 45 UNIT SUBCUT (09:45)
[2023-12-07 09:46] VITALS: BP 140/65
[2023-12-07] MEDS: lisinopriL 10 MG TABLET PO (09:46)
[2023-12-07] MEDS: Magnesium Oxide 400 MG TABLET PO (09:46)
[2023-12-07] MEDS: Escitalopram Oxalate 5 MG TABLET PO (09:46)
[2023-12-07] MEDS: risperiDONE 1 MG TABLET PO ×2 (09:46→22:03)
[2023-12-07] MEDS: Lithium Carbonate 300 MG TABLET 150 MG PO (09:47)
[2023-12-07 12:35] LABS: Glucose, Whole Blood 507 mg/dL (60-115)
[2023-12-07 14:38] VITALS: BP 156/76; PULSE 80
[2023-12-07] MEDS: Propranolol HCL 40 MG TABLET 80 MG PO (14:38)
--- NOTE | 2023-12-07 15:16 | PM.EVENT ---
Event Note Date of Service: 12/07/23 Event Note: Patient is a 63-year-old female admitted to [facility]. Hospitalist consult for follow-up for diabetes management. Patient's blood sugars consistently hyperglycemic as high as 507 earlier today. Will adjust patient's sliding-scale insulin and increase bedtime Lantus from 25 units to 35 units. Patient should be encouraged to adhere to diabetic snacking and a diabetic diet. Time Spent With Patient Time: Total time managing care of this patient today ____ minutes.
[2023-12-07] MEDS: Divalproex Sodium 500 MG TABLET.DR 2000 MG PO (17:52)
[2023-12-07] MEDS: Divalproex Sodium 250 MG TABLET.DR PO (17:52)
[2023-12-07 21:58] LABS: Glucose, Whole Blood 387 mg/dL (60-115)
[2023-12-07] MEDS: hydrOXYzine HCL 50 MG TABLET PO (22:04)
[2023-12-07] MEDS: Lithium Carbonate ER 300 MG TABLET.ER PO (22:04)
[2023-12-07 22:20] VITALS: RESP 18
[2023-12-07] MEDS: Insulin Glargine,Hum.rec.anlog 100 UNIT/ML 10 ML VIAL 35 UNIT SUBCUT (22:24)
--- NOTE | 2023-12-07 23:05 | PC.NURSE ---
Addendum entered by Danielle Mota RN 12/08/23 01:05: Pt refused follow up POC. Original Note: Pt had a POC level of 387 tonight. Initially refused the insulin but eventually allowed insulin administration of 35 units of lantus and 14 units of lispro. Hospitalist Carmella Whittington notified and requested 2 hr recheck. Will continue to monitor.
[2023-12-08] MEDS: Levothyroxine Sodium 125 MCG TABLET PO (07:14)
--- NOTE | 2023-12-08 10:56 | HO.PSYCHPN ---
Subjective Subjective Date of Service: 12/07/23 Reason For Visit: Psychosis Subjective Notes: Section 7 Interim History: Pt did not sleep last night. She continues to present internally preoccupied, talking about God, refusing at times medications. dismissed this documentation writer and asked me to leave the room again. Review of Systems Review of Systems Yes all other systems are reviewed and are negative and Unobtainable due to mental status (has no complaints but question reliability of history given arnoldo) Constitutional: Reports as per HPI Eyes: Reports as per HPI Reports as per HPI Cardiovascular: Reports as per HPI Respiratory: Reports as per HPI Gastrointestinal: Reports as per HPI Musculoskeletal: Reports as per HPI Skin/Breast: Reports as per HPI Reports as per HPI Psychiatric: Reports as per HPI Endocrine: Reports as per HPI Hematologic/Lymphatic: Reports as per HPI Allergic/Immunologic: Reports as per HPI Mental Status Exam Mental Status Exam Patient Appearance: Disheveled and Unkempt Patient Orientation: Person, Place and Situation Level of Consciousness: Awake Patient Behavior: Suspicious and Resistive to Care Mood Description: Euphoric Affect Description: Labile Patient Cognition Impaired: No Ability to Follow Directions: Fair Speech Pattern: Mumbled Diagnostics Vital Signs (24Hr): Vital Signs - 24 hr 12/07/23 14:38 12/07/23 22:20 Pulse Rate 80 Respiratory Rate 18 Blood Pressure 156/76 H BMI result Body Mass Index 40.0 Labs 11/27/23 15:52 11/27/23 15:52 Labs: Laboratory Results - last 48 hr 12/06/23 12/06/23 12/07/23 12:39 21:36 08:35 POC Glucose 300 H 368 H* 437 H* 12/07/23 12/07/23 12:31 21:52 POC Glucose 507 H* 387 H* Medications Medications Current Medications Acetaminophen (Acetaminophen 325 Mg Tablet) 650 mg PO Q6H PRN PRN Reason: Headache/Pain Mild Scale (1-3) Al Hydroxide/Mg Hydroxide (Magnesium Hydrox/Alum Hydrox 30 Ml Oral.Susp) 30 ml PO Q6H PRN PRN Reason: Heartburn/Nausea Artificial Tears (Artificial Tears 15 Ml Drops) 1 drop EYE-BOTH Q4H PRN PRN Reason: dry eyes Last Admin: 11/24/23 14:06 Dose: 1 drop Divalproex Sodium (Divalproex Sodium 500 Mg Tablet.) 2,000 mg PO DAILY@1800 [facility] Last Admin: 12/07/23 17:52 Dose: 2,000 mg Divalproex Sodium (Divalproex Sodium 250 Mg Tablet.) 250 mg PO DAILY@1800 [facility] Last Admin: 12/07/23 17:52 Dose: 250 mg Escitalopram Oxalate (Escitalopram Oxalate 5 Mg Tablet) 5 mg PO DAILY [facility] Last Admin: 12/07/23 09:46 Dose: 5 mg Glucose (Glucose Gel 15 Gm Gel..Gram.) 15 gm PO Q15M PRN; Protocol PRN Reason: per Hypoglycemia Standing Ord. Hydroxyzine HCl (Hydroxyzine Hcl 25 Mg Tablet) 25 mg PO Q6H PRN PRN Reason: Anxiety Last Admin: 11/30/23 20:41 Dose: 25 mg Hydroxyzine HCl (Hydroxyzine Hcl 50 Mg Tablet) 50 mg PO BEDTIME [facility] Last Admin: 12/07/23 22:04 Dose: 50 mg Insulin Glargine (Insulin Glargine,Hum.Rec.Anlog 100 Unit/Ml 10 Ml Vial) 45 unit SUBCUT DAILY [facility] Last Admin: 12/07/23 09:45 Dose: 45 unit Insulin Glargine (Insulin Glargine,Hum.Rec.Anlog 100 Unit/Ml 10 Ml Vial) 35 unit SUBCUT BEDTIME [facility] Last Admin: 12/07/23 22:24 Dose: 35 unit Insulin Human Lispro (Insulin Lispro 100 Unit/Ml 3 Ml Vial) 0 unit SUBCUT QIDACHS [facility]; Protocol Last Admin: 12/08/23 09:10 Dose: Not Given Levothyroxine Sodium (Levothyroxine Sodium 125 Mcg Tablet) 125 mcg PO DAILY@0600 [facility] Last Admin: 12/08/23 07:14 Dose: 125 mcg Lisinopril (Lisinopril 10 Mg Tablet) 10 mg PO DAILY [facility]; Protocol Last Admin: 12/07/23 09:46 Dose: 10 mg [place] Carbonate ([place] Carbonate 300 Mg Tablet) 150 mg PO DAILY [facility] Last Admin: 12/07/23 09:47 Dose: 150 mg [place] Carbonate ([place] Carbonate Er 300 Mg Tablet.Er) 300 mg PO BEDTIME [facility] Last Admin: 12/07/23 22:04 Dose: 300 mg Loratadine (Loratadine 10 Mg Tablet) 10 mg PO DAILY PRN PRN Reason: Allergic Reaction Magnesium Hydroxide (Milk Of Magnesia 30 Ml Oral.Susp) 30 ml PO DAILY PRN PRN Reason: Constipation Magnesium Oxide (Magnesium Oxide 400 Mg Tablet) 400 mg PO DAILY [facility] Last Admin: 12/07/23 09:46 Dose: 400 mg Olanzapine (Olanzapine 5 Mg Tablet) 5 mg PO BEDTIME [facility] Last Admin: 12/07/23 22:05 Dose: 5 mg Olanzapine (Olanzapine 5 Mg Tablet) 5 mg PO Q4H PRN PRN Reason: Psychosis Last Admin: 12/07/23 06:10 Dose: 5 mg Propranolol HCl (Propranolol Hcl 40 Mg Tablet) 80 mg PO TID [facility]; Protocol Last Admin: 12/07/23 22:12 Dose: Not Given Risperidone (Risperidone 1 Mg Tablet) 1 mg PO BID [facility] Last Admin: 12/07/23 22:03 Dose: 1 mg Trazodone HCl (Trazodone Hcl 50 Mg Tablet) 50 mg PO BEDTIME MRX1 PRN PRN Reason: Insomnia Last Admin: 12/06/23 21:39 Dose: 50 mg Allergies Allergies Allergy/AdvReac Type Severity Reaction Status Date / Time haloperidol [From Haldol] AdvReac Unknown Verified 10/28/20 06:32 Assessment & Plan Assessment & Plan (1) Schizoaffective disorder, bipolar type: Status: Acute Code(s): F25.0 - Schizoaffective disorder, bipolar type Plan 11/14: continue/restart outpt meds. medical med changes as per hospitalist recommendation. anticipate improvement with presumed Sx attributable to mental illness and lack of compliance with medications. if no improvement as lithium and VPA levels enter therapeutic range, will need to consider delirium as Dx and return to medical w/u for etiology. 11/15: Ammonia level 22 repeat electrolytes continue Depakote olanzapine would benefit from clarification of antipsychotic dosing and response. 11/16: continue current Tx 11/17: no change in presentation. continue current mgmt. 11/18: much more organized and linear, lucid, today. continue current mgmt. 11/19: continue more organized and lucid. restart citalopram/escitalopram. check labs tonight. 11/20 continue tx. may benefit from increase in risperidone. 11/21: VPA level 18.8 on 11/19, lithium 0.4. increase VPA dosing from 1500 mg to 2000 mg daily. linear, organized, signed CV today. 11/22: continues more organized and reality-based. continue current mgmt. 11/23: no change from yesterday, stable presentation. c/o dry eyes, drops PRN ordered. 11/24: Continue current regimen and plans 11/25: Continue current regimen and plans 11/26: check labs. remains manic. 11/27: VPA 58.5; increase VPA dosing to 2250 at 6 pm. lithium 0.52; increase lithium to 150/300. remains with attenuated arnoldo. glucose persistently elevated but pt not regularly taking lantus. will attempt to manage with more aggressive SSI. 11/28: no change in presentation. continue current mgmt. 11/29: variable presentation. was euphoric yesterday, more irritable today. continue current mgmt. check labs again monday cecilia. 11/30: less irritable today, but not euphoric. encouraged to comply with insulin orders, informed of upcoming blood draw (ordered for 12/03 cecilia). continue current mgmt otherwise. 12/02/23-ongoing psychosis- less labile, believes one of meds is poison so refusing (propranlol) CTP 12/02 refusing medications ongoing psychosis - 12/03: per diem interpreter present. Pt observed laying in bed, talking to self loudly. Singing loudly at times. Religiously preoccupied. disorganized. Pt reports feeling amazing today; pt stated, I have desire to live and have high self esteem. I hear God is with me and you. He tells me this. I know the world is not going to end . Continue to encourage medication compliance. 12/04 will increase risperidone, at least will be offered twice a day. 12/05 continue current tx. pt declining medications. 12/06 continue tx. Reason for continued inpatient stay Substantial Risk for: inability to function Time Spent With Patient Time: Total time managing care of this patient today ____ minutes.
--- NOTE | 2023-12-08 10:58 | HO.PSYCHPN ---
Subjective Subjective Date of Service: 12/08/23 Reason For Visit: Psychosis Subjective Notes: Section 7 Interim History: Pt did not sleep last night. She continues to present internally preoccupied, talking about God, refusing at times medications. dismissed this commercial real estate underwriter and asked me to leave the room again. Review of Systems Review of Systems Yes all other systems are reviewed and are negative and Unobtainable due to mental status (has no complaints but question reliability of history given arnoldo) Constitutional: Reports as per HPI Eyes: Reports as per HPI Reports as per HPI Cardiovascular: Reports as per HPI Respiratory: Reports as per HPI Gastrointestinal: Reports as per HPI Musculoskeletal: Reports as per HPI Skin/Breast: Reports as per HPI Reports as per HPI Psychiatric: Reports as per HPI Endocrine: Reports as per HPI Hematologic/Lymphatic: Reports as per HPI Allergic/Immunologic: Reports as per HPI Mental Status Exam Mental Status Exam Patient Appearance: Disheveled and Unkempt Patient Orientation: Person, Place and Situation Level of Consciousness: Awake Patient Behavior: Suspicious and Resistive to Care Mood Description: Euphoric Affect Description: Labile Patient Cognition Impaired: No Ability to Follow Directions: Fair Speech Pattern: Mumbled Diagnostics Vital Signs (24Hr): Vital Signs - 24 hr 12/07/23 14:38 12/07/23 22:20 Pulse Rate 80 Respiratory Rate 18 Blood Pressure 156/76 H BMI result Body Mass Index 40.0 Labs 11/27/23 15:52 11/27/23 15:52 Labs: Laboratory Results - last 48 hr 12/06/23 12/06/23 12/07/23 12:39 21:36 08:35 POC Glucose 300 H 368 H* 437 H* 12/07/23 12/07/23 12:31 21:52 POC Glucose 507 H* 387 H* Medications Medications Current Medications Acetaminophen (Acetaminophen 325 Mg Tablet) 650 mg PO Q6H PRN PRN Reason: Headache/Pain Mild Scale (1-3) Al Hydroxide/Mg Hydroxide (Magnesium Hydrox/Alum Hydrox 30 Ml Oral.Susp) 30 ml PO Q6H PRN PRN Reason: Heartburn/Nausea Artificial Tears (Artificial Tears 15 Ml Drops) 1 drop EYE-BOTH Q4H PRN PRN Reason: dry eyes Last Admin: 11/24/23 14:06 Dose: 1 drop Divalproex Sodium (Divalproex Sodium 500 Mg Tablet.) 2,000 mg PO DAILY@1800 [facility] Last Admin: 12/07/23 17:52 Dose: 2,000 mg Divalproex Sodium (Divalproex Sodium 250 Mg Tablet.) 250 mg PO DAILY@1800 [facility] Last Admin: 12/07/23 17:52 Dose: 250 mg Escitalopram Oxalate (Escitalopram Oxalate 5 Mg Tablet) 5 mg PO DAILY [facility] Last Admin: 12/07/23 09:46 Dose: 5 mg Glucose (Glucose Gel 15 Gm Gel..Gram.) 15 gm PO Q15M PRN; Protocol PRN Reason: per Hypoglycemia Standing Ord. Hydroxyzine HCl (Hydroxyzine Hcl 25 Mg Tablet) 25 mg PO Q6H PRN PRN Reason: Anxiety Last Admin: 11/30/23 20:41 Dose: 25 mg Hydroxyzine HCl (Hydroxyzine Hcl 50 Mg Tablet) 50 mg PO BEDTIME [facility] Last Admin: 12/07/23 22:04 Dose: 50 mg Insulin Glargine (Insulin Glargine,Hum.Rec.Anlog 100 Unit/Ml 10 Ml Vial) 45 unit SUBCUT DAILY [facility] Last Admin: 12/07/23 09:45 Dose: 45 unit Insulin Glargine (Insulin Glargine,Hum.Rec.Anlog 100 Unit/Ml 10 Ml Vial) 35 unit SUBCUT BEDTIME [facility] Last Admin: 12/07/23 22:24 Dose: 35 unit Insulin Human Lispro (Insulin Lispro 100 Unit/Ml 3 Ml Vial) 0 unit SUBCUT QIDACHS [facility]; Protocol Last Admin: 12/08/23 09:10 Dose: Not Given Levothyroxine Sodium (Levothyroxine Sodium 125 Mcg Tablet) 125 mcg PO DAILY@0600 [facility] Last Admin: 12/08/23 07:14 Dose: 125 mcg Lisinopril (Lisinopril 10 Mg Tablet) 10 mg PO DAILY [facility]; Protocol Last Admin: 12/07/23 09:46 Dose: [address] [place] Carbonate ([place] Carbonate 300 Mg Tablet) 150 mg PO DAILY [facility] Last Admin: 12/07/23 09:47 Dose: [address] [place] Carbonate ([place] Carbonate Er 300 Mg Tablet.Er) 300 mg PO BEDTIME [facility] Last Admin: 12/07/23 22:04 Dose: 300 mg Loratadine (Loratadine 10 Mg Tablet) 10 mg PO DAILY PRN PRN Reason: Allergic Reaction Magnesium Hydroxide (Milk Of Magnesia 30 Ml Oral.Susp) 30 ml PO DAILY PRN PRN Reason: Constipation Magnesium Oxide (Magnesium Oxide 400 Mg Tablet) 400 mg PO DAILY [facility] Last Admin: 12/07/23 09:46 Dose: 400 mg Olanzapine (Olanzapine 5 Mg Tablet) 5 mg PO BEDTIME [facility] Last Admin: 12/07/23 22:05 Dose: 5 mg Olanzapine (Olanzapine 5 Mg Tablet) 5 mg PO Q4H PRN PRN Reason: Psychosis Last Admin: 12/07/23 06:10 Dose: 5 mg Propranolol HCl (Propranolol Hcl 40 Mg Tablet) 80 mg PO TID [facility]; Protocol Last Admin: 12/07/23 22:12 Dose: Not Given Risperidone (Risperidone 1 Mg Tablet) 1 mg PO BID [facility] Last Admin: 12/07/23 22:03 Dose: 1 mg Trazodone HCl (Trazodone Hcl 50 Mg Tablet) 50 mg PO BEDTIME MRX1 PRN PRN Reason: Insomnia Last Admin: 12/06/23 21:39 Dose: 50 mg Allergies Allergies Allergy/AdvReac Type Severity Reaction Status Date / Time haloperidol [From Haldol] AdvReac Unknown Verified 10/28/20 06:32 Assessment & Plan Assessment & Plan (1) Schizoaffective disorder, bipolar type: Status: Acute Code(s): F25.0 - Schizoaffective disorder, bipolar type Plan 11/14: continue/restart outpt meds. medical med changes as per hospitalist recommendation. anticipate improvement with presumed Sx attributable to mental illness and lack of compliance with medications. if no improvement as lithium and VPA levels enter therapeutic range, will need to consider delirium as Dx and return to medical w/u for etiology. 11/15: Ammonia level 22 repeat electrolytes continue Depakote olanzapine would benefit from clarification of antipsychotic dosing and response. 11/16: continue current Tx 11/17: no change in presentation. continue current mgmt. 11/18: much more organized and linear, lucid, today. continue current mgmt. 11/19: continue more organized and lucid. restart citalopram/escitalopram. check labs tonight. 11/20 continue tx. may benefit from increase in risperidone. 11/21: VPA level 18.8 on 11/19, lithium 0.4. increase VPA dosing from 1500 mg to 2000 mg daily. linear, organized, signed CV today. 11/22: continues more organized and reality-based. continue current mgmt. 11/23: no change from yesterday, stable presentation. c/o dry eyes, drops PRN ordered. 11/24: Continue current regimen and plans 11/25: Continue current regimen and plans 11/26: check labs. remains manic. 11/27: VPA 58.5; increase VPA dosing to 2250 at 6 pm. lithium 0.52; increase lithium to 150/300. remains with attenuated arnoldo. glucose persistently elevated but pt not regularly taking lantus. will attempt to manage with more aggressive SSI. 11/28: no change in presentation. continue current mgmt. 11/29: variable presentation. was euphoric yesterday, more irritable today. continue current mgmt. check labs again monday cecilia. 11/30: less irritable today, but not euphoric. encouraged to comply with insulin orders, informed of upcoming blood draw (ordered for 12/03 cecilia). continue current mgmt otherwise. 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 Pt observed laying in bed, talking to self loudly. Singing loudly at times. Religiously preoccupied. disorganized. Pt reports feeling amazing today; pt stated, I have desire to live and have high self esteem. I hear God is with me and you. He tells me this. I know the world is not going to end . Continue to encourage medication compliance. 12/04 will increase risperidone, at least will be offered twice a day. 12/05 continue current tx. pt declining medications. 12/06 continue tx. 12/07 continue tx. Reason for continued inpatient stay Substantial Risk for: inability to function Time Spent With Patient Time: Total time managing care of this patient today ____ minutes.
[2023-12-08] MEDS: Divalproex Sodium 250 MG TABLET.DR PO (17:59)
[2023-12-08] MEDS: Divalproex Sodium 500 MG TABLET.DR 2000 MG PO (17:59)
[2023-12-08 20:00] VITALS: BP 163/72; PULSE 91; RESP 18; TEMP 36.2; O2SAT 95
[2023-12-08] MEDS: risperiDONE 1 MG TABLET PO (20:38)
[2023-12-08] MEDS: Lithium Carbonate ER 300 MG TABLET.ER PO (20:38)
[2023-12-08] MEDS: hydrOXYzine HCL 50 MG TABLET PO (20:38)
[2023-12-08] MEDS: OLANZapine 5 MG TABLET PO (20:38)
[2023-12-08] MEDS: Insulin Glargine,Hum.rec.anlog 100 UNIT/ML 10 ML VIAL 35 UNIT SUBCUT (20:42)
[2023-12-08] MEDS: Insulin Lispro 100 UNIT/ML 3 ML VIAL SUBCUT (20:44)
[2023-12-08 20:56] LABS: Glucose, Whole Blood 505 mg/dL (60-115)
[2023-12-09] MEDS: Levothyroxine Sodium 125 MCG TABLET PO (06:37)
[2023-12-09 07:20] VITALS: BP 136/61; PULSE 76; RESP 16; TEMP 36.5; O2SAT 95
[2023-12-09 08:42] LABS: Glucose, Whole Blood 235 mg/dL (60-115)
--- NOTE | 2023-12-09 14:50 | HO.PSYCHPN ---
Subjective Subjective Date of Service: 12/09/23 Reason For Visit: Psychosis Subjective Notes: Conditional Voluntary Interim History: The nursing staff reported the patient had been irritated labile noncompliant with medications. Today in the morning loud point of care up to 245. She was singing loudly not wearing pads she slept 7 hours very disorganized. On interview the patient refused to engage in the conversation. No change in mental status Mental Status Exam Mental Status Exam Patient Appearance: Disheveled Patient Orientation: Person and Situation Level of Consciousness: Disoriented and Restless Patient Behavior: Guarded Mood Description: Withdrawn Affect Description: Labile Patient Cognition Impaired: Yes Ability to Follow Directions: Good Speech Pattern: Impoverished Hallucinations: None Delusions: Paranoid Ideation and Ideas of Reference Thought Process: Distracted and Slowed Thinking Thought Content: positive for Poverty of Content and positive for Thought Blocking Judgement: Poor Diagnostics Vital Signs (24Hr): Vital Signs - 24 hr 12/08/23 20:00 12/09/23 07:20 Temperature 97.1 F 97.7 F Pulse Rate 91 76 Respiratory Rate 18 16 Blood Pressure 163/72 H 136/61 Pulse Oximetry 95 95 Oxygen Delivery Method Room Air Room Air BMI result Body Mass Index 40.0 Labs 11/27/23 15:52 11/27/23 15:52 Labs: Laboratory Results - last 48 hr 12/07/23 12/08/23 12/09/23 21:52 20:10 08:24 POC Glucose 387 H* 505 H* 235 H Medications Medications Current Medications Acetaminophen (Acetaminophen 325 Mg Tablet) 650 mg PO Q6H PRN PRN Reason: Headache/Pain Mild Scale (1-3) Al Hydroxide/Mg Hydroxide (Magnesium Hydrox/Alum Hydrox 30 Ml Oral.Susp) 30 ml PO Q6H PRN PRN Reason: Heartburn/Nausea Artificial Tears (Artificial Tears 15 Ml Drops) 1 drop EYE-BOTH Q4H PRN PRN Reason: dry eyes Last Admin: 11/24/23 14:06 Dose: 1 drop Divalproex Sodium (Divalproex Sodium 500 Mg Tablet.) 2,000 mg PO DAILY@1800 [facility] Last Admin: 12/08/23 17:59 Dose: 2,000 mg Divalproex Sodium (Divalproex Sodium 250 Mg Tablet.) 250 mg PO DAILY@1800 [facility] Last Admin: 12/08/23 17:59 Dose: 250 mg Escitalopram Oxalate (Escitalopram Oxalate 5 Mg Tablet) 5 mg PO DAILY [facility] Last Admin: 12/09/23 09:23 Dose: Not Given Glucose (Glucose Gel 15 Gm Gel..Gram.) 15 gm PO Q15M PRN; Protocol PRN Reason: per Hypoglycemia Standing Ord. Hydroxyzine HCl (Hydroxyzine Hcl 25 Mg Tablet) 25 mg PO Q6H PRN PRN Reason: Anxiety Last Admin: 11/30/23 20:41 Dose: 25 mg Hydroxyzine HCl (Hydroxyzine Hcl 50 Mg Tablet) 50 mg PO BEDTIME [facility] Last Admin: 12/08/23 20:38 Dose: 50 mg Insulin Glargine (Insulin Glargine,Hum.Rec.Anlog 100 Unit/Ml 10 Ml Vial) 45 unit SUBCUT DAILY [facility] Last Admin: 12/09/23 09:23 Dose: Not Given Insulin Glargine (Insulin Glargine,Hum.Rec.Anlog 100 Unit/Ml 10 Ml Vial) 35 unit SUBCUT BEDTIME [facility] Last Admin: 12/08/23 20:42 Dose: 35 unit Insulin Human Lispro (Insulin Lispro 100 Unit/Ml 3 Ml Vial) 0 unit SUBCUT QIDACHS [facility]; Protocol Last Admin: 12/09/23 13:06 Dose: Not Given Levothyroxine Sodium (Levothyroxine Sodium 125 Mcg Tablet) 125 mcg PO DAILY@0600 [facility] Last Admin: 12/09/23 06:37 Dose: 125 mcg Lisinopril (Lisinopril 10 Mg Tablet) 10 mg PO DAILY [facility]; Protocol Last Admin: 12/09/23 09:23 Dose: Not Given [place] Carbonate ([place] Carbonate 300 Mg Tablet) 150 mg PO DAILY [facility] Last Admin: 12/09/23 09:23 Dose: Not Given [place] Carbonate ([place] Carbonate Er 300 Mg Tablet.Er) 300 mg PO BEDTIME [facility] Last Admin: 12/08/23 20:38 Dose: 300 mg Loratadine (Loratadine 10 Mg Tablet) 10 mg PO DAILY PRN PRN Reason: Allergic Reaction Magnesium Hydroxide (Milk Of Magnesia 30 Ml Oral.Susp) 30 ml PO DAILY PRN PRN Reason: Constipation Magnesium Oxide (Magnesium Oxide 400 Mg Tablet) 400 mg PO DAILY [facility] Last Admin: 12/09/23 09:23 Dose: Not Given Olanzapine (Olanzapine 5 Mg Tablet) 5 mg PO BEDTIME [facility] Last Admin: 12/08/23 20:38 Dose: 5 mg Olanzapine (Olanzapine 5 Mg Tablet) 5 mg PO Q4H PRN PRN Reason: Psychosis Last Admin: 12/07/23 06:10 Dose: 5 mg Propranolol HCl (Propranolol Hcl 40 Mg Tablet) 80 mg PO TID [facility]; Protocol Last Admin: 12/09/23 14:48 Dose: Not Given Risperidone (Risperidone 1 Mg Tablet) 1 mg PO BID [facility] Last Admin: 12/09/23 09:24 Dose: Not Given Trazodone HCl (Trazodone Hcl 50 Mg Tablet) 50 mg PO BEDTIME MRX1 PRN PRN Reason: Insomnia Last Admin: 12/06/23 21:39 Dose: 50 mg Allergies Allergies Allergy/AdvReac Type Severity Reaction Status Date / Time haloperidol [From Haldol] AdvReac Unknown Verified 10/28/20 06:32 Assessment & Plan Assessment & Plan (1) Schizoaffective disorder, bipolar type: Status: Acute Code(s): F25.0 - Schizoaffective disorder, bipolar type Plan 11/14: continue/restart outpt meds. medical med changes as per hospitalist recommendation. anticipate improvement with presumed Sx attributable to mental illness and lack of compliance with medications. if no improvement as lithium and VPA levels enter therapeutic range, will need to consider delirium as Dx and return to medical w/u for etiology. 11/15: Ammonia level 22 repeat electrolytes continue Depakote olanzapine would benefit from clarification of antipsychotic dosing and response. 11/16: continue current Tx 11/17: no change in presentation. continue current mgmt. 11/18: much more organized and linear, lucid, today. continue current mgmt. 11/19: continue more organized and lucid. restart citalopram/escitalopram. check labs tonight. 11/20 continue tx. may benefit from increase in risperidone. 11/21: VPA level 18.8 on 11/19, lithium 0.4. increase VPA dosing from 1500 mg to 2000 mg daily. linear, organized, signed CV today. 11/22: continues more organized and reality-based. continue current mgmt. 11/23: no change from yesterday, stable presentation. c/o dry eyes, drops PRN ordered. 11/24: Continue current regimen and plans 11/25: Continue current regimen and plans 11/26: check labs. remains manic. 11/27: VPA 58.5; increase VPA dosing to 2250 at 6 pm. lithium 0.52; increase lithium to 150/300. remains with attenuated arnoldo. glucose persistently elevated but pt not regularly taking lantus. will attempt to manage with more aggressive SSI. 11/28: no change in presentation. continue current mgmt. 11/29: variable presentation. was euphoric yesterday, more irritable today. continue current mgmt. check labs again monday cecilia. 11/30: less irritable today, but not euphoric. encouraged to comply with insulin orders, informed of upcoming blood draw (ordered for 12/03 cecilia). continue current mgmt otherwise. 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 Pt observed laying in bed, talking to self loudly. Singing loudly at times. Religiously preoccupied. disorganized. Pt reports feeling amazing today; pt stated, I have desire to live and have high self esteem. I hear God is with me and you. He tells me this. I know the world is not going to end . Continue to encourage medication compliance. 12/04 will increase risperidone, at least will be offered twice a day. 12/05 continue current tx. pt declining medications. 12/06 continue tx. 12/07 continue tx. 12/08 continue treatment Reason for continued inpatient stay Substantial Risk for: inability to function, rapid decompensation and med/psych decompensation Time Spent With Patient Time: Total time managing care of this patient today __20__ minutes.
[2023-12-09] MEDS: Divalproex Sodium 500 MG TABLET.DR 2000 MG PO (18:10)
[2023-12-09] MEDS: Divalproex Sodium 250 MG TABLET.DR PO (18:10)
[2023-12-09] MEDS: OLANZapine 5 MG TABLET PO (21:30)
[2023-12-09] MEDS: Lithium Carbonate ER 300 MG TABLET.ER PO (21:30)
[2023-12-09] MEDS: hydrOXYzine HCL 50 MG TABLET PO (21:30)
[2023-12-09] MEDS: risperiDONE 1 MG TABLET PO (21:30)
--- NOTE | 2023-12-09 23:58 | PC.NURSE ---
Kae refused to have her vital signs taken. Patient also refused any POC tests. Patient refused her insulin tonight and her propranolol medication.
[2023-12-10] MEDS: Levothyroxine Sodium 125 MCG TABLET PO (06:17)
[2023-12-10 08:00] VITALS: BP 164/67; PULSE 95; RESP 20; TEMP 36.2; O2SAT 96
[2023-12-10 08:45] LABS: Glucose, Whole Blood 293 mg/dL (60-115)
--- NOTE | 2023-12-10 12:09 | P.PNPSI_ITS ---
Subjective Subjective Date of Service: 12/10/23 Reason For Visit: Psychosis Subjective Notes: Conditional Voluntary Interim History: The nursing staff reported the patient had been visible in the unit, she refused his vital signs and point of cares in the evening. She had been isolated slept 6 hours and she woke up at 03:30 in the morning singing loudly grossly disorganized. On interview the patient is grossly manic disinhibited stating that she is feeling great and she wants to dance. Mental Status Exam Mental Status Exam Patient Appearance: Appropriate Patient Orientation: Person and Situation Level of Consciousness: Awake Patient Behavior: Cooperative and Restless Mood Description: Cheerful Affect Description: Labile Ability to Follow Directions: Poor Speech Pattern: Impoverished and Rapid Hallucinations: None Delusions: Grandiose Thought Process: Racing Thought Content: positive for Tangential Judgement: Poor Diagnostics Vital Signs (24Hr): Vital Signs - 24 hr 12/10/23 08:00 Temperature 97.1 F Pulse Rate 95 Respiratory Rate 20 Blood Pressure 164/67 H Pulse Oximetry 96 Oxygen Delivery Method Room Air BMI result Body Mass Index 40.0 Labs 11/27/23 15:52 11/27/23 15:52 Labs: Laboratory Results - last 48 hr 12/08/23 12/09/23 12/10/23 20:10 08:24 08:30 POC Glucose 505 H* 235 H 293 H Medications Medications Current Medications Acetaminophen (Acetaminophen 325 Mg Tablet) 650 mg PO Q6H PRN PRN Reason: Headache/Pain Mild Scale (1-3) Al Hydroxide/Mg Hydroxide (Magnesium Hydrox/Alum Hydrox 30 Ml Oral.Susp) 30 ml PO Q6H PRN PRN Reason: Heartburn/Nausea Artificial Tears (Artificial Tears 15 Ml Drops) 1 drop EYE-BOTH Q4H PRN PRN Reason: dry eyes Last Admin: 11/24/23 14:06 Dose: 1 drop Divalproex Sodium (Divalproex Sodium 500 Mg Tablet.) 2,000 mg PO DAILY@1800 [facility] Last Admin: 12/09/23 18:10 Dose: 2,000 mg Divalproex Sodium (Divalproex Sodium 250 Mg Tablet.) 250 mg PO DAILY@1800 [facility] Last Admin: 12/09/23 18:10 Dose: 250 mg Escitalopram Oxalate (Escitalopram Oxalate 5 Mg Tablet) 5 mg PO DAILY [facility] Last Admin: 12/10/23 08:38 Dose: Not Given Glucose (Glucose Gel 15 Gm Gel..Gram.) 15 gm PO Q15M PRN; Protocol PRN Reason: per Hypoglycemia Standing Ord. Hydroxyzine HCl (Hydroxyzine Hcl 25 Mg Tablet) 25 mg PO Q6H PRN PRN Reason: Anxiety Last Admin: 11/30/23 20:41 Dose: 25 mg Hydroxyzine HCl (Hydroxyzine Hcl 50 Mg Tablet) 50 mg PO BEDTIME [facility] Last Admin: 12/09/23 21:30 Dose: 50 mg Insulin Glargine (Insulin Glargine,Hum.Rec.Anlog 100 Unit/Ml 10 Ml Vial) 45 unit SUBCUT DAILY [facility] Last Admin: 12/10/23 08:38 Dose: Not Given Insulin Glargine (Insulin Glargine,Hum.Rec.Anlog 100 Unit/Ml 10 Ml Vial) 35 unit SUBCUT BEDTIME [facility] Last Admin: 12/09/23 21:34 Dose: Not Given Insulin Human Lispro (Insulin Lispro 100 Unit/Ml 3 Ml Vial) 0 unit SUBCUT QIDACHS [facility]; Protocol Last Admin: 12/10/23 08:38 Dose: Not Given Levothyroxine Sodium (Levothyroxine Sodium 125 Mcg Tablet) 125 mcg PO DAILY@0600 [facility] Last Admin: 12/10/23 06:17 Dose: 125 mcg Lisinopril (Lisinopril 10 Mg Tablet) 10 mg PO DAILY [facility]; Protocol Last Admin: 12/10/23 08:38 Dose: Not Given [place] Carbonate ([place] Carbonate 300 Mg Tablet) 150 mg PO DAILY [facility] Last Admin: 12/10/23 08:39 Dose: Not Given [place] Carbonate ([place] Carbonate Er 300 Mg Tablet.Er) 300 mg PO BEDTIME [facility] Last Admin: 12/09/23 21:30 Dose: 300 mg Loratadine (Loratadine 10 Mg Tablet) 10 mg PO DAILY PRN PRN Reason: Allergic Reaction Magnesium Hydroxide (Milk Of Magnesia 30 Ml Oral.Susp) 30 ml PO DAILY PRN PRN Reason: Constipation Magnesium Oxide (Magnesium Oxide 400 Mg Tablet) 400 mg PO DAILY [facility] Last Admin: 12/10/23 08:39 Dose: Not Given Olanzapine (Olanzapine 5 Mg Tablet) 5 mg PO BEDTIME [facility] Last Admin: 12/09/23 21:30 Dose: 5 mg Olanzapine (Olanzapine 5 Mg Tablet) 5 mg PO Q4H PRN PRN Reason: Psychosis Last Admin: 12/07/23 06:10 Dose: 5 mg Propranolol HCl (Propranolol Hcl 40 Mg Tablet) 80 mg PO TID [facility]; Protocol Last Admin: 12/10/23 08:39 Dose: Not Given Risperidone (Risperidone 1 Mg Tablet) 1 mg PO BID [facility] Last Admin: 12/10/23 08:39 Dose: Not Given Trazodone HCl (Trazodone Hcl 50 Mg Tablet) 50 mg PO BEDTIME MRX1 PRN PRN Reason: Insomnia Last Admin: 12/06/23 21:39 Dose: 50 mg Allergies Allergies Allergy/AdvReac Type Severity Reaction Status Date / Time haloperidol [From Haldol] AdvReac Unknown Verified 10/28/20 06:32 Assessment & Plan Assessment & Plan (1) Schizoaffective disorder, bipolar type: Status: Acute Code(s): F25.0 - Schizoaffective disorder, bipolar type Plan 11/14: continue/restart outpt meds. medical med changes as per hospitalist recommendation. anticipate improvement with presumed Sx attributable to mental illness and lack of compliance with medications. if no improvement as lithium and VPA levels enter therapeutic range, will need to consider delirium as Dx and return to medical w/u for etiology. 11/15: Ammonia level 22 repeat electrolytes continue Depakote olanzapine would benefit from clarification of antipsychotic dosing and response. 11/16: continue current Tx 11/17: no change in presentation. continue current mgmt. 11/18: much more organized and linear, lucid, today. continue current mgmt. 11/19: continue more organized and lucid. restart citalopram/escitalopram. check labs tonight. 11/20 continue tx. may benefit from increase in risperidone. 11/21: VPA level 18.8 on 11/19, lithium 0.4. increase VPA dosing from 1500 mg to 2000 mg daily. linear, organized, signed CV today. 11/22: continues more organized and reality-based. continue current mgmt. 11/23: no change from yesterday, stable presentation. c/o dry eyes, drops PRN ordered. 11/24: Continue current regimen and plans 11/25: Continue current regimen and plans 11/26: check labs. remains manic. 11/27: VPA 58.5; increase VPA dosing to 2250 at 6 pm. lithium 0.52; increase lithium to 150/300. remains with attenuated arnoldo. glucose persistently elevated but pt not regularly taking lantus. will attempt to manage with more aggressive SSI. 11/28: no change in presentation. continue current mgmt. 11/29: variable presentation. was euphoric yesterday, more irritable today. continue current mgmt. check labs again monday cecilia. 11/30: less irritable today, but not euphoric. encouraged to comply with insulin orders, informed of upcoming blood draw (ordered for 12/03 cecilia). continue current mgmt otherwise. 12/02/23-ongoing psychosis- less labile, believes one of meds is poison so refusing (propranlol) CTP 12/02 refusing medications ongoing psychosis - 12/03: bias machine operator present. Pt observed laying in bed, talking to self loudly. Singing loudly at times. Religiously preoccupied. disorganized. Pt reports feeling amazing today; pt stated, I have desire to live and have high self esteem. I hear God is with me and you. He tells me this. I know the world is not going to end . Continue to encourage medication compliance. 12/04 will increase risperidone, at least will be offered twice a day. 12/05 continue current tx. pt declining medications. 12/06 continue tx. 12/07 continue tx. 12/08 continue treatment 12/09 continue treatment, the patient is poorly compliant with treatment. Reason for continued inpatient stay Substantial Risk for: inability to function, rapid decompensation and med/psych decompensation Time Spent With Patient Time: Total time managing care of this patient today __20__ minutes.
[2023-12-10 20:00] VITALS: RESP 20
[2023-12-11 08:00] VITALS: BP 144/79; PULSE 73; TEMP 36.4; O2SAT 94
[2023-12-11] MEDS: risperiDONE 1 MG TABLET PO (08:46)
[2023-12-11] MEDS: Magnesium Oxide 400 MG TABLET PO (08:46)
[2023-12-11] MEDS: Lithium Carbonate 300 MG TABLET 150 MG PO (08:46)
[2023-12-11 08:47] VITALS: BP 98/61; PULSE 73
[2023-12-11] MEDS: Escitalopram Oxalate 5 MG TABLET PO (08:47)
[2023-12-11] MEDS: Propranolol HCL 40 MG TABLET 80 MG PO (08:47)
[2023-12-11] MEDS: Levothyroxine Sodium 125 MCG TABLET PO (08:47)
[2023-12-11] MEDS: Insulin Glargine,Hum.rec.anlog 100 UNIT/ML 10 ML VIAL 45 UNIT SUBCUT (08:48)
[2023-12-11] MEDS: Insulin Lispro 100 UNIT/ML 3 ML VIAL SUBCUT ×2 (08:48→13:13)
[2023-12-11] MEDS: lisinopriL 10 MG TABLET PO (08:55)
[2023-12-11 09:01] LABS: Glucose, Whole Blood 281 mg/dL (60-115)
[2023-12-11] MEDS: OLANZapine 5 MG TABLET PO (09:20)
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
[2023-12-11] MEDS: LORazepam 0.5 MG TABLET PO (10:40)
[2023-12-11 12:34] LABS: Glucose, Whole Blood 348 mg/dL (60-115)
[2023-12-11] MEDS: LORazepam 2 MG/ML VIAL IM (14:49)
[2023-12-11] MEDS: OLANZapine 10 MG VIAL IM (14:50)
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
[2023-12-11 20:00] VITALS: RESP 18; TEMP 36.4
--- NOTE | 2023-12-11 20:09 | PC.NURSE ---
Kae refused POC, vital signs and medications. yelling at this health science writer and the anatomic pathology manager telling us to get out.
[2023-12-12 07:45] VITALS: BP 131/59; PULSE 105; RESP 16; TEMP 36.2; O2SAT 94
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
--- NOTE | 2023-12-12 17:38 | PC.NURSE ---
pt has been refusing vitals, POC and medications. Pt has become increasingly agitated and would push medications away from RN.
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
[2023-12-12 20:15] VITALS: BP 142/64; PULSE 91; RESP 16; TEMP 36.4; O2SAT 95
[2023-12-12] MEDS: hydrOXYzine HCL 25 MG TABLET PO (20:47)
[2023-12-12] MEDS: Lithium Carbonate ER 300 MG TABLET.ER PO (20:47)
[2023-12-12] MEDS: Propranolol HCL 40 MG TABLET 80 MG PO (20:47)
[2023-12-12] MEDS: risperiDONE 1 MG TABLET PO (20:47)
[2023-12-12] MEDS: traZODone HCL 50 MG TABLET PO (20:48)
[2023-12-12] MEDS: OLANZapine 5 MG TABLET PO (20:48)
[2023-12-12] MEDS: LORazepam 0.5 MG TABLET PO (20:48)
[2023-12-13] MEDS: Levothyroxine Sodium 125 MCG TABLET PO (06:49)
[2023-12-13] MEDS: OLANZapine 5 MG TABLET PO ×3 (06:49→22:09)
[2023-12-13 07:56] VITALS: BP 110/54; PULSE 111; RESP 16; TEMP 36.3; O2SAT 95
[2023-12-13] MEDS: risperiDONE 1 MG TABLET PO ×2 (11:58→21:15)
[2023-12-13 11:59] VITALS: BP 122/80
[2023-12-13] MEDS: LORazepam 0.5 MG TABLET PO ×2 (11:59→21:16)
[2023-12-13] MEDS: Magnesium Oxide 400 MG TABLET PO (11:59)
[2023-12-13] MEDS: lisinopriL 10 MG TABLET PO (11:59)
[2023-12-13] MEDS: Propranolol HCL 40 MG TABLET 80 MG PO ×2 (12:03→21:15)
[2023-12-13 12:56] LABS: Glucose, Whole Blood 471 mg/dL (60-115)
[2023-12-13] MEDS: Insulin Lispro 100 UNIT/ML 3 ML VIAL SUBCUT ×3 (13:01→21:25)
[2023-12-13] MEDS: Insulin Glargine,Hum.rec.anlog 100 UNIT/ML 10 ML VIAL 45 UNIT SUBCUT (13:03)
[2023-12-13 17:54] LABS: Glucose, Whole Blood > 600 mg/dL (60-115)
--- NOTE | 2023-12-13 19:13 | PC.NURSE ---
Kae was agreeable to POC before supper. It was too high to register on poc machine. Dr Welch, hospitalist transition nurse, paged. Orders received. She was agreeable to insulin coverage. Dr Welch also ordered labs, upon approach she became agitated and adamantly refused. Dr Welch paged.
[2023-12-13 21:00] VITALS: BP 140/62; PULSE 100; RESP 16; TEMP 36.6; O2SAT 94
[2023-12-13] MEDS: Lithium Carbonate ER 300 MG TABLET.ER PO (21:16)
[2023-12-13] MEDS: Insulin Glargine,Hum.rec.anlog 100 UNIT/ML 10 ML VIAL 35 UNIT SUBCUT (21:24)
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
[2023-12-13 22:00] LABS: Glucose, Whole Blood 518 mg/dL (60-115)
[2023-12-13] MEDS: traZODone HCL 50 MG TABLET PO (22:09)
[2023-12-14] MEDS: Levothyroxine Sodium 125 MCG TABLET PO (05:53)
[2023-12-14] MEDS: OLANZapine 5 MG TABLET PO ×2 (05:54→21:14)
[2023-12-14 07:50] VITALS: BP 132/78; PULSE 88; RESP 14; TEMP 36.6; O2SAT 94
[2023-12-14] MEDS: Insulin Glargine,Hum.rec.anlog 100 UNIT/ML 10 ML VIAL 45 UNIT SUBCUT (08:23)
[2023-12-14] MEDS: Lithium Carbonate 300 MG TABLET 150 MG PO (08:23)
[2023-12-14] MEDS: Magnesium Oxide 400 MG TABLET PO (08:24)
[2023-12-14] MEDS: LORazepam 0.5 MG TABLET PO ×2 (08:24→21:14)
[2023-12-14] MEDS: Propranolol HCL 40 MG TABLET 80 MG PO ×2 (08:24→21:14)
[2023-12-14] MEDS: risperiDONE 1 MG TABLET PO ×2 (08:24→21:14)
[2023-12-14] MEDS: lisinopriL 10 MG TABLET PO (08:24)
[2023-12-14 08:37] LABS: Glucose, Whole Blood 230 mg/dL (60-115)
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
[2023-12-14] MEDS: Divalproex Sodium 250 MG TABLET.DR PO (16:43)
[2023-12-14] MEDS: Divalproex Sodium 500 MG TABLET.DR 2000 MG PO (16:43)
[2023-12-14 21:00] VITALS: BP 152/92; PULSE 86; RESP 16; TEMP 36.4; O2SAT 97
[2023-12-14] MEDS: Insulin Glargine,Hum.rec.anlog 100 UNIT/ML 10 ML VIAL 35 UNIT SUBCUT (21:12)
[2023-12-14] MEDS: Lithium Carbonate ER 300 MG TABLET.ER PO (21:14)
[2023-12-14] MEDS: traZODone HCL 50 MG TABLET PO (21:14)
[2023-12-14] MEDS: hydrOXYzine HCL 25 MG TABLET PO (21:14)
[2023-12-14 21:17] LABS: Glucose, Whole Blood 394 mg/dL (60-115)
[2023-12-14] MEDS: Insulin Lispro 100 UNIT/ML 3 ML VIAL SUBCUT (21:27)
[2023-12-15] MEDS: OLANZapine 5 MG TABLET PO (06:38)
[2023-12-15] MEDS: Levothyroxine Sodium 125 MCG TABLET PO (06:38)
[2023-12-15 08:35] VITALS: BP 90/56; PULSE 98; RESP 14; TEMP 36.4; O2SAT 100
[2023-12-15] MEDS: Magnesium Oxide 400 MG TABLET PO (08:47)
[2023-12-15] MEDS: risperiDONE 1 MG TABLET PO (08:47)
[2023-12-15] MEDS: LORazepam 0.5 MG TABLET PO (08:47)
[2023-12-15] MEDS: Lithium Carbonate 300 MG TABLET 150 MG PO (08:47)
[2023-12-15 08:49] LABS: Glucose, Whole Blood 164 mg/dL (60-115)
[2023-12-15 09:07] VITALS: BP 90/56
[2023-12-15 12:35] LABS: Glucose, Whole Blood 235 mg/dL (60-115)
[2023-12-15 14:22] VITALS: BP 129/60; PULSE 101
[2023-12-15] MEDS: Propranolol HCL 40 MG TABLET 80 MG PO ×2 (14:23→20:24)
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
--- NOTE | 2023-12-15 18:30 | PC.NURSE ---
Kae refused all insulin and Depakote. She refused dinner time POC. BP was low in AM did not received Lisinopril or Propanolol. BP improved at 1430 for 1500 Propanolol.
[2023-12-15 20:00] VITALS: BP 135/67; PULSE 84; RESP 18; TEMP 37.1; O2SAT 97
[2023-12-15 20:24] VITALS: BP 135/67; PULSE 84
[2023-12-15 20:39] LABS: Glucose, Whole Blood 369 mg/dL (60-115)
[2023-12-16 08:00] VITALS: BP 172/87; PULSE 84; RESP 18; TEMP 36.3; O2SAT 95
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
[2023-12-16 17:55] LABS: Glucose, Whole Blood 297 mg/dL (60-115)
[2023-12-16 20:00] VITALS: RESP 18
[2023-12-17 08:00] VITALS: RESP 18
--- NOTE | 2023-12-17 09:38 | PC.NURSE ---
Kae refused medications, vitals and BP. Cuff Cutter called and present, and Kae continued to refuse
--- NOTE | 2023-12-17 10:34 | PC.NURSE ---
Kae showered with encouragement and assistance from ROSETTA
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
[2023-12-17] MEDS: hydrOXYzine HCL 25 MG TABLET PO ×2 (17:56→21:21)
[2023-12-17] MEDS: OLANZapine 5 MG TABLET PO ×2 (17:56→21:21)
[2023-12-17] MEDS: Divalproex Sodium 500 MG TABLET.DR 2000 MG PO (17:57)
[2023-12-17] MEDS: Divalproex Sodium 250 MG TABLET.DR PO (17:57)
[2023-12-17 21:10] VITALS: BP 180/91; PULSE 70; RESP 16; TEMP 36.6; O2SAT 98
[2023-12-17] MEDS: LORazepam 0.5 MG TABLET PO (21:21)
[2023-12-17] MEDS: risperiDONE 1 MG TABLET PO (21:21)
[2023-12-17] MEDS: traZODone HCL 50 MG TABLET PO (21:22)
[2023-12-17] MEDS: Propranolol HCL 40 MG TABLET 80 MG PO (21:22)
[2023-12-17] MEDS: Lithium Carbonate ER 300 MG TABLET.ER PO (21:22)
[2023-12-18] MEDS: Levothyroxine Sodium 125 MCG TABLET PO (06:02)
[2023-12-18] MEDS: OLANZapine 5 MG TABLET PO ×2 (06:02→18:45)
[2023-12-18 08:00] VITALS: BP 00/00; PULSE 0; RESP 0; TEMP -17.7; TEMP 0; O2SAT 0
--- NOTE | 2023-12-18 08:51 | PC.NURSE ---
Patient yelling loudly, entered peers room got into her bed difficult to redirect. Multiple staff attempted to redirect patient to no avail. Patient then used peers bathroom, redirected to her room with much effort. Continues yelling loudly in [place].
[2023-12-18 08:54] LABS: Glucose, Whole Blood 356 mg/dL (60-115)
[2023-12-18] MEDS: Lithium Carbonate 300 MG TABLET 150 MG PO (08:55)
[2023-12-18] MEDS: risperiDONE 1 MG TABLET PO (08:56)
[2023-12-18] MEDS: LORazepam 0.5 MG TABLET PO (08:57)
[2023-12-18 09:05] VITALS: BP 00/00
[2023-12-18 09:06] VITALS: BP 00/00; PULSE 0
[2023-12-18] MEDS: fluPHENAZine HCL 2.5 MG/ML 10 ML VIAL 5 MG IM ×2 (13:18→20:30)
[2023-12-18] MEDS: LORazepam 2 MG/ML VIAL IM ×2 (13:18→20:31)
[2023-12-18] MEDS: diphenhydrAMINE HCL 50 MG/ML VIAL IM ×2 (13:18→20:32)
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
[2023-12-18 16:31] VITALS: BP 000/00; PULSE 0
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
[2023-12-18] MEDS: hydrOXYzine HCL 25 MG TABLET PO (18:43)
--- NOTE | 2023-12-18 19:03 | PC.NURSE ---
Patients guardian Trupti Tran notified of medication restraint today.
[2023-12-19] MEDS: Lithium Carbonate ER 300 MG TABLET.ER PO ×2 (00:43→22:29)
[2023-12-19] MEDS: risperiDONE 1 MG TABLET PO ×3 (00:45→22:29)
[2023-12-19] MEDS: LORazepam 0.5 MG TABLET PO ×3 (00:45→22:29)
[2023-12-19] MEDS: OLANZapine 5 MG TABLET PO ×2 (00:50→22:29)
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
[2023-12-19 08:44] LABS: Glucose, Whole Blood 445 mg/dL (60-115)
[2023-12-19 09:00] VITALS: BP 134/88; PULSE 114
[2023-12-19] MEDS: Lithium Carbonate 300 MG TABLET 150 MG PO (09:02)
[2023-12-19] MEDS: Magnesium Oxide 400 MG TABLET PO (09:02)
[2023-12-19] MEDS: Insulin Lispro 100 UNIT/ML 3 ML VIAL SUBCUT ×2 (09:03→12:34)
[2023-12-19] MEDS: Insulin Glargine,Hum.rec.anlog 100 UNIT/ML 10 ML VIAL 45 UNIT SUBCUT (09:04)
[2023-12-19 09:05] VITALS: BP 134/88; PULSE 114
[2023-12-19] MEDS: Propranolol HCL 40 MG TABLET 80 MG PO (09:05)
[2023-12-19] MEDS: lisinopriL 10 MG TABLET PO (09:05)
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
[2023-12-19 12:32] LABS: Glucose, Whole Blood 555 mg/dL (60-115)
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
[2023-12-20 07:57] VITALS: BP 138/81; PULSE 84; RESP 16; TEMP 36.2; O2SAT 94
[2023-12-20 08:17] LABS: Glucose, Whole Blood 366 mg/dL (60-115)
[2023-12-20] MEDS: Acetaminophen 325 MG TABLET 650 MG PO (08:24)
[2023-12-20] MEDS: Magnesium Oxide 400 MG TABLET PO (08:25)
[2023-12-20] MEDS: Lithium Carbonate 300 MG TABLET 150 MG PO (08:25)
[2023-12-20] MEDS: Propranolol HCL 40 MG TABLET 80 MG PO (08:26)
[2023-12-20] MEDS: lisinopriL 10 MG TABLET PO (08:27)
[2023-12-20] MEDS: LORazepam 0.5 MG TABLET PO (08:27)
[2023-12-20] MEDS: risperiDONE 1 MG TABLET PO (08:27)
[2023-12-20] MEDS: Insulin Glargine,Hum.rec.anlog 100 UNIT/ML 10 ML VIAL 45 UNIT SUBCUT (08:28)
[2023-12-20] MEDS: Insulin Lispro 100 UNIT/ML 3 ML VIAL SUBCUT ×2 (08:28→12:39)
[2023-12-20] MEDS: OLANZapine 5 MG TABLET PO (09:19)
[2023-12-20 12:38] LABS: Glucose, Whole Blood 442 mg/dL (60-115)
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
[2023-12-20 21:30] VITALS: RESP 18
[2023-12-21 07:15] VITALS: BP 137/65; PULSE 85; RESP 20; TEMP 36.5; O2SAT 95
[2023-12-21 08:44] LABS: Glucose, Whole Blood 281 mg/dL (60-115)
[2023-12-21] MEDS: Lithium Carbonate 300 MG TABLET 150 MG PO (08:58)
[2023-12-21] MEDS: Magnesium Oxide 400 MG TABLET PO (08:59)
[2023-12-21] MEDS: OLANZapine 5 MG TABLET PO ×3 (08:59→21:35)
[2023-12-21] MEDS: Insulin Lispro 100 UNIT/ML 3 ML VIAL SUBCUT ×4 (09:00→21:35)
[2023-12-21] MEDS: risperiDONE 1 MG TABLET PO ×2 (09:00→21:35)
[2023-12-21] MEDS: Insulin Glargine,Hum.rec.anlog 100 UNIT/ML 10 ML VIAL 45 UNIT SUBCUT (09:01)
[2023-12-21 12:49] LABS: Glucose, Whole Blood 281 mg/dL (60-115)
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
[2023-12-21 14:48] VITALS: BP 141/62; PULSE 91; RESP 16
[2023-12-21] MEDS: Propranolol HCL 40 MG TABLET 80 MG PO (14:50)
[2023-12-21 17:50] LABS: Glucose, Whole Blood 271 mg/dL (60-115)
[2023-12-21 20:50] LABS: Glucose, Whole Blood 232 mg/dL (60-115)
[2023-12-21] MEDS: Lithium Carbonate ER 300 MG TABLET.ER PO (21:35)
[2023-12-21] MEDS: traZODone HCL 50 MG TABLET PO (21:35)
[2023-12-21] MEDS: Insulin Glargine,Hum.rec.anlog 100 UNIT/ML 10 ML VIAL 35 UNIT SUBCUT (21:35)
[2023-12-22] MEDS: Levothyroxine Sodium 125 MCG TABLET PO (06:13)
[2023-12-22] MEDS: OLANZapine 5 MG TABLET PO ×3 (06:13→21:22)
[2023-12-22] MEDS: Acetaminophen 325 MG TABLET 650 MG PO (06:28)
[2023-12-22 07:33] VITALS: BP 128/78; PULSE 71; RESP 16; TEMP 36.3; O2SAT 97
[2023-12-22 08:47] VITALS: BP 132/76; PULSE 78
[2023-12-22] MEDS: Propranolol HCL 40 MG TABLET 80 MG PO ×2 (08:47→14:24)
[2023-12-22 08:48] VITALS: BP 132/76
[2023-12-22] MEDS: Lithium Carbonate 300 MG TABLET 150 MG PO (08:48)
[2023-12-22] MEDS: lisinopriL 10 MG TABLET PO (08:48)
[2023-12-22] MEDS: Magnesium Oxide 400 MG TABLET PO (08:48)
[2023-12-22 09:06] LABS: Glucose, Whole Blood 136 mg/dL (60-115)
[2023-12-22] MEDS: Insulin Glargine,Hum.rec.anlog 100 UNIT/ML 10 ML VIAL 45 UNIT SUBCUT (09:06)
[2023-12-22] MEDS: Insulin Lispro 100 UNIT/ML 3 ML VIAL SUBCUT ×2 (09:07→12:54)
[2023-12-22] MEDS: risperiDONE 1 MG TABLET PO ×2 (10:14→21:12)
[2023-12-22 12:54] LABS: Glucose, Whole Blood 197 mg/dL (60-115)
[2023-12-22 14:21] VITALS: BP 116/58; PULSE 78; RESP 16
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
[2023-12-22 20:00] VITALS: BP 129/53; PULSE 85; RESP 16; TEMP 36.4; O2SAT 95
[2023-12-22] MEDS: Divalproex Sodium ER 500 MG TAB.ER.24H 1000 MG PO (21:12)
[2023-12-22] MEDS: Lithium Carbonate ER 300 MG TABLET.ER PO (21:13)
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
[2023-12-23] MEDS: risperiDONE 1 MG TABLET PO (20:33)
[2023-12-23] MEDS: Lithium Carbonate ER 300 MG TABLET.ER PO (20:33)
[2023-12-23] MEDS: Divalproex Sodium ER 500 MG TAB.ER.24H 1000 MG PO (20:33)
[2023-12-23] MEDS: OLANZapine 5 MG TABLET PO (20:41)
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
[2023-12-24] MEDS: Magnesium Oxide 400 MG TABLET PO (10:52)
[2023-12-24] MEDS: Lithium Carbonate 300 MG TABLET 150 MG PO (10:52)
[2023-12-24] MEDS: risperiDONE 1 MG TABLET PO ×3 (10:52→23:47)
[2023-12-24 10:53] VITALS: BP 154/74
[2023-12-24] MEDS: Levothyroxine Sodium 125 MCG TABLET PO (10:53)
[2023-12-24] MEDS: lisinopriL 10 MG TABLET PO (10:53)
[2023-12-24] MEDS: OLANZapine 5 MG TABLET PO ×3 (10:53→23:47)
[2023-12-24 10:56] VITALS: BP 154/74; PULSE 81
[2023-12-24] MEDS: Propranolol HCL 40 MG TABLET 80 MG PO ×2 (10:56→15:03)
[2023-12-24 11:03] LABS: Glucose, Whole Blood 192 mg/dL (60-115)
[2023-12-24] MEDS: Insulin Glargine,Hum.rec.anlog 100 UNIT/ML 10 ML VIAL 45 UNIT SUBCUT (11:03)
[2023-12-24] MEDS: Insulin Lispro 100 UNIT/ML 3 ML VIAL SUBCUT (11:05)
[2023-12-24 15:01] VITALS: BP 131/60; PULSE 78
[2023-12-24] MEDS: Divalproex Sodium ER 500 MG TAB.ER.24H 1000 MG PO ×2 (23:43→23:47)
[2023-12-24] MEDS: Lithium Carbonate ER 300 MG TABLET.ER PO ×2 (23:44→23:47)
[2023-12-25] MEDS: Levothyroxine Sodium 125 MCG TABLET PO (06:41)
[2023-12-25 08:00] VITALS: BP 135/63; PULSE 83; RESP 16; TEMP 36.7; O2SAT 96
[2023-12-25 08:28] VITALS: BP 135/70; PULSE 79; RESP 16; TEMP 36.9; O2SAT 95
[2023-12-25 08:37] LABS: Glucose, Whole Blood 336 mg/dL (60-115)
[2023-12-25] MEDS: Insulin Lispro 100 UNIT/ML 3 ML VIAL SUBCUT ×3 (08:45→20:44)
[2023-12-25] MEDS: Insulin Glargine,Hum.rec.anlog 100 UNIT/ML 10 ML VIAL 45 UNIT SUBCUT (08:45)
[2023-12-25] MEDS: Lithium Carbonate 300 MG TABLET 150 MG PO (08:45)
[2023-12-25] MEDS: Propranolol HCL 40 MG TABLET 80 MG PO ×3 (08:46→20:38)
[2023-12-25] MEDS: Magnesium Oxide 400 MG TABLET PO (08:47)
[2023-12-25] MEDS: lisinopriL 10 MG TABLET PO (08:47)
[2023-12-25] MEDS: OLANZapine 5 MG TABLET PO ×3 (08:47→20:40)
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
[2023-12-25] MEDS: risperiDONE 1 MG TABLET PO ×2 (10:28→20:38)
[2023-12-25 12:48] LABS: Glucose, Whole Blood 188 mg/dL (60-115)
[2023-12-25 15:21] VITALS: BP 116/57; PULSE 72; RESP 16
[2023-12-25] MEDS: hydrOXYzine HCL 25 MG TABLET PO (18:41)
[2023-12-25 20:30] VITALS: BP 152/70; PULSE 86; RESP 16; TEMP 36.4; O2SAT 96
[2023-12-25 20:31] LABS: Glucose, Whole Blood 493 mg/dL (60-115)
[2023-12-25] MEDS: Divalproex Sodium ER 500 MG TAB.ER.24H 1000 MG PO (20:39)
[2023-12-25] MEDS: Lithium Carbonate ER 300 MG TABLET.ER PO (20:40)
[2023-12-25] MEDS: Insulin Glargine,Hum.rec.anlog 100 UNIT/ML 10 ML VIAL 35 UNIT SUBCUT (20:43)
[2023-12-26] MEDS: Levothyroxine Sodium 125 MCG TABLET PO (07:05)
[2023-12-26 07:25] VITALS: BP 113/56; PULSE 65; RESP 16; TEMP 36.3; O2SAT 95
[2023-12-26 08:53] LABS: Glucose, Whole Blood 133 mg/dL (60-115)
[2023-12-26 10:00] VITALS: BP 113/56; PULSE 65
[2023-12-26] MEDS: Magnesium Oxide 400 MG TABLET PO (10:00)
[2023-12-26] MEDS: Propranolol HCL 40 MG TABLET 80 MG PO ×3 (10:00→21:05)
[2023-12-26] MEDS: lisinopriL 10 MG TABLET PO (10:00)
[2023-12-26] MEDS: Insulin Glargine,Hum.rec.anlog 100 UNIT/ML 10 ML VIAL 45 UNIT SUBCUT (10:00)
[2023-12-26] MEDS: risperiDONE 1 MG TABLET PO ×2 (10:00→21:05)
[2023-12-26] MEDS: Insulin Lispro 100 UNIT/ML 3 ML VIAL SUBCUT (10:00)
[2023-12-26] MEDS: Lithium Carbonate 300 MG TABLET 150 MG PO (10:00)
[2023-12-26 12:51] LABS: Glucose, Whole Blood 311 mg/dL (60-115)
--- NOTE | 2023-12-26 13:23 | PC.NURSE ---
Kae refused her lunch insulin. Tarah BAIG made aware.
[2023-12-26 15:32] VITALS: BP 130/63; PULSE 79
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
[2023-12-26 18:52] LABS: Glucose, Whole Blood 297 mg/dL (60-115)
[2023-12-26 20:00] VITALS: BP 123/58; PULSE 85; RESP 16; TEMP 36.4; O2SAT 96
[2023-12-26] MEDS: Divalproex Sodium ER 500 MG TAB.ER.24H 1000 MG PO (21:05)
[2023-12-26] MEDS: OLANZapine 5 MG TABLET PO (21:06)
[2023-12-26] MEDS: Lithium Carbonate ER 300 MG TABLET.ER PO (21:06)
[2023-12-26 21:16] LABS: Glucose, Whole Blood 357 mg/dL (60-115)
[2023-12-27] MEDS: Levothyroxine Sodium 125 MCG TABLET PO (06:10)
[2023-12-27 07:41] VITALS: BP 149/65; PULSE 78; RESP 16; TEMP 36.4; O2SAT 96
[2023-12-27] MEDS: Lithium Carbonate 300 MG TABLET 150 MG PO (09:32)
[2023-12-27 09:33] VITALS: BP 149/65; PULSE 78
[2023-12-27] MEDS: Propranolol HCL 40 MG TABLET 80 MG PO ×3 (09:33→20:49)
[2023-12-27] MEDS: Magnesium Oxide 400 MG TABLET PO (09:33)
[2023-12-27] MEDS: lisinopriL 10 MG TABLET PO (09:33)
[2023-12-27] MEDS: risperiDONE 1 MG TABLET PO ×2 (09:33→20:49)
[2023-12-27] MEDS: hydrOXYzine HCL 25 MG TABLET PO ×2 (09:33→15:38)
[2023-12-27] MEDS: Insulin Glargine,Hum.rec.anlog 100 UNIT/ML 10 ML VIAL 45 UNIT SUBCUT (09:34)
[2023-12-27] MEDS: Insulin Lispro 100 UNIT/ML 3 ML VIAL SUBCUT ×2 (09:34→13:23)
[2023-12-27 12:34] LABS: Glucose, Whole Blood 315 mg/dL (60-115)
[2023-12-27 12:55] LABS: Glucose, Whole Blood 291 mg/dL (60-115)
[2023-12-27 15:37] VITALS: BP 151/67; PULSE 76
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
[2023-12-27 17:28] LABS: Glucose, Whole Blood 112 mg/dL (60-115)
[2023-12-27] MEDS: OLANZapine 5 MG TABLET PO (20:50)
[2023-12-27] MEDS: Lithium Carbonate ER 300 MG TABLET.ER PO (20:50)
[2023-12-27] MEDS: Divalproex Sodium ER 500 MG TAB.ER.24H 2000 MG PO (20:50)
[2023-12-27 20:51] LABS: Glucose, Whole Blood 289 mg/dL (60-115)
[2023-12-28] MEDS: Levothyroxine Sodium 125 MCG TABLET PO (06:51)
[2023-12-28 08:00] VITALS: RESP 18
[2023-12-28 08:34] LABS: Glucose, Whole Blood 208 mg/dL (60-115)
[2023-12-28] MEDS: Insulin Lispro 100 UNIT/ML 3 ML VIAL SUBCUT ×3 (09:32→22:57)
[2023-12-28] MEDS: Insulin Glargine,Hum.rec.anlog 100 UNIT/ML 10 ML VIAL 45 UNIT SUBCUT (09:32)
[2023-12-28] MEDS: Magnesium Oxide 400 MG TABLET PO (09:33)
[2023-12-28] MEDS: risperiDONE 1 MG TABLET PO ×2 (09:34→22:59)
[2023-12-28] MEDS: Lithium Carbonate 300 MG TABLET 150 MG PO (09:36)
[2023-12-28 12:04] LABS: Glucose, Whole Blood 310 mg/dL (60-115)
[2023-12-28 13:26] VITALS: BP 138/90; PULSE 76; RESP 16; TEMP 36.3; O2SAT 98
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
[2023-12-28 17:47] LABS: Glucose, Whole Blood 237 mg/dL (60-115)
[2023-12-28 20:00] VITALS: RESP 18
[2023-12-28 22:53] LABS: Glucose, Whole Blood 341 mg/dL (60-115)
[2023-12-28] MEDS: Insulin Glargine,Hum.rec.anlog 100 UNIT/ML 10 ML VIAL 35 UNIT SUBCUT (22:57)
[2023-12-28] MEDS: Lithium Carbonate ER 300 MG TABLET.ER PO (22:58)
[2023-12-28] MEDS: Divalproex Sodium ER 500 MG TAB.ER.24H 2000 MG PO (22:58)
[2023-12-28] MEDS: OLANZapine 5 MG TABLET PO ×2 (22:59)
[2023-12-29 08:05] VITALS: BP 145/110; PULSE 85; RESP 16; TEMP 36.5; O2SAT 98
[2023-12-29 08:47] LABS: Glucose, Whole Blood 100 mg/dL (60-115)
[2023-12-29 08:54] VITALS: BP 145/110; PULSE 85
[2023-12-29] MEDS: Lithium Carbonate 300 MG TABLET 150 MG PO (08:54)
[2023-12-29] MEDS: Propranolol HCL 40 MG TABLET 80 MG PO (08:54)
[2023-12-29] MEDS: risperiDONE 1 MG TABLET PO ×2 (08:54→20:21)
[2023-12-29] MEDS: Magnesium Oxide 400 MG TABLET PO (08:54)
[2023-12-29] MEDS: lisinopriL 10 MG TABLET PO (08:54)
[2023-12-29] MEDS: Insulin Glargine,Hum.rec.anlog 100 UNIT/ML 10 ML VIAL 45 UNIT SUBCUT (08:55)
[2023-12-29] MEDS: hydrOXYzine HCL 25 MG TABLET PO (11:54)
[2023-12-29] MEDS: OLANZapine 5 MG TABLET PO ×2 (11:54→20:21)
[2023-12-29 12:41] LABS: Glucose, Whole Blood 364 mg/dL (60-115)
[2023-12-29] MEDS: Insulin Lispro 100 UNIT/ML 3 ML VIAL SUBCUT (12:45)
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
[2023-12-29 15:23] VITALS: BP 103/55; PULSE 87; RESP 16; TEMP 36.7; O2SAT 96
[2023-12-29 20:15] VITALS: BP 131/84; PULSE 98; RESP 18; TEMP 36.2; O2SAT 97
[2023-12-29] MEDS: Divalproex Sodium ER 500 MG TAB.ER.24H 2000 MG PO (20:20)
[2023-12-30] MEDS: Levothyroxine Sodium 125 MCG TABLET PO (05:38)
[2023-12-30] MEDS: Acetaminophen 325 MG TABLET 650 MG PO (05:46)
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
[2023-12-30 09:29] VITALS: BP 127/87; RESP 17; TEMP 36.3; O2SAT 98
[2023-12-30] MEDS: Magnesium Oxide 400 MG TABLET PO (09:31)
[2023-12-30] MEDS: Lithium Carbonate 300 MG TABLET 150 MG PO (09:31)
[2023-12-30] MEDS: risperiDONE 1 MG TABLET PO (09:31)
[2023-12-30] MEDS: lisinopriL 10 MG TABLET PO (09:32)
[2023-12-30 17:46] LABS: Glucose, Whole Blood 238 mg/dL (60-115)
[2023-12-30] MEDS: Insulin Lispro 100 UNIT/ML 3 ML VIAL SUBCUT (17:50)
[2023-12-30 20:12] VITALS: RESP 18
[2023-12-31] MEDS: Divalproex Sodium ER 500 MG TAB.ER.24H 2000 MG PO ×2 (00:15→20:45)
[2023-12-31] MEDS: risperiDONE 1 MG TABLET PO ×3 (00:17→20:46)
[2023-12-31] MEDS: OLANZapine 10 MG TABLET PO ×2 (00:17→20:45)
[2023-12-31] MEDS: Lithium Carbonate ER 300 MG TABLET.ER PO ×2 (00:17→20:46)
[2023-12-31 00:25] VITALS: BP 156/67; PULSE 95; RESP 20
--- NOTE | 2023-12-31 00:59 | PC.NURSE ---
Kae initially refused all HS medications, vital signs and blood sugar. she did eventually agree to take HS medications except Propranolol as well as insulin and POC. she did allow Blood Pressure and Heart Rate to be taken 156/67, 95. Patient continues to sing loudly in her room at this time
[2023-12-31 08:30] VITALS: BP 124/60; PULSE 76; RESP 20; TEMP 36.2; O2SAT 98
[2023-12-31 08:47] LABS: Glucose, Whole Blood 135 mg/dL (60-115)
[2023-12-31] MEDS: Insulin Glargine,Hum.rec.anlog 100 UNIT/ML 10 ML VIAL 45 UNIT SUBCUT (09:14)
[2023-12-31] MEDS: Insulin Lispro 100 UNIT/ML 3 ML VIAL SUBCUT ×2 (09:14→17:55)
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
[2023-12-31 15:30] VITALS: BP 139/63; PULSE 88
[2023-12-31] MEDS: Propranolol HCL 40 MG TABLET 80 MG PO (15:32)
[2023-12-31 17:55] LABS: Glucose, Whole Blood 250 mg/dL (60-115)
[2023-12-31 20:00] VITALS: BP 134/61; PULSE 77; RESP 16; TEMP 36.6; O2SAT 93
[2024-01-01 08:00] VITALS: BP 163/73; PULSE 87; TEMP 36.6; O2SAT 98
[2024-01-01 09:00] LABS: Glucose, Whole Blood 265 mg/dL (60-115)
[2024-01-01 09:31] VITALS: BP 163/73; PULSE 87
[2024-01-01] MEDS: Propranolol HCL 40 MG TABLET 80 MG PO (09:31)
[2024-01-01] MEDS: Magnesium Oxide 400 MG TABLET PO (09:31)
[2024-01-01 09:32] VITALS: BP 163/73
[2024-01-01] MEDS: Lithium Carbonate 300 MG TABLET 150 MG PO (09:32)
[2024-01-01] MEDS: lisinopriL 10 MG TABLET PO (09:32)
[2024-01-01] MEDS: risperiDONE 1 MG TABLET PO ×2 (09:33→20:16)
[2024-01-01 12:52] LABS: Glucose, Whole Blood 217 mg/dL (60-115)
[2024-01-01] MEDS: Insulin Lispro 100 UNIT/ML 3 ML VIAL SUBCUT ×2 (13:17→19:16)
[2024-01-01 17:24] LABS: Glucose, Whole Blood 188 mg/dL (60-115)
[2024-01-01 20:00] VITALS: RESP 16
[2024-01-01 20:14] LABS: Glucose, Whole Blood 303 mg/dL (60-115)
[2024-01-01] MEDS: OLANZapine 10 MG TABLET PO (20:15)
[2024-01-01] MEDS: Divalproex Sodium ER 500 MG TAB.ER.24H 2000 MG PO (20:15)
[2024-01-01 20:22] LABS: Lithium 0.24 mmol/L (0.60-1.20)
[2024-01-01 20:26] LABS: Valproate 58.2 mcg/mL (50.0-100.0)
[2024-01-01 20:28] LABS: Anion Gap 12 (12-20); Blood Urea Nitrogen 12 mg/dL (9-16); Calcium 9.3 mg/dL (8.4-10.2); Carbon Dioxide 27 mmol/L (22-29); Chloride 102 mmol/L (96-108); Creatinine Clr Calc Pharmacy 68.9; Estimated Glomerular Filt Rate > 60; Glucose Random 329 mg/dL (60-115); Potassium 4.4 mmol/L (3.3-5.1); Sodium 137 mmol/L (135-145)
[2024-01-01 20:49] LABS: Appearance Urine Clear; Color Urine Yellow; Glucose Urine UA >=1000 mg/dL (Negative); Leukocyte Esterase Urine Negative (Negative); Nitrite Urine Negative (Negative); PH 6.5 (5.0-9.0); Specific Gravity - Urine >= 1.030 (1.005-1.025); UMIC TRIGGER UA YES; UMIC TRIGGER UACC YES; Urine Blood Negative (Negative); Urine Ketones 15 mg/dL (Negative); Urine Protein Negative (Neg-Trace)
[2024-01-01 21:05] LABS: Bacteria Urine None Seen (None Seen); Hyaline Casts Urine 0-2 /LPF (0-2); RBC Urine 0-2 /HPF (0-2); WBC Urine 0-5 /HPF (0-5)
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
[2024-01-02 08:00] VITALS: BP 131/61; PULSE 68; RESP 18; TEMP 36.1; O2SAT 97
[2024-01-02 08:42] LABS: Glucose, Whole Blood 211 mg/dL (60-115)
[2024-01-02] MEDS: Levothyroxine Sodium 125 MCG TABLET PO (09:04)
[2024-01-02] MEDS: Magnesium Oxide 400 MG TABLET PO (09:04)
[2024-01-02] MEDS: Insulin Glargine,Hum.rec.anlog 100 UNIT/ML 10 ML VIAL 45 UNIT SUBCUT (09:06)
[2024-01-02] MEDS: Insulin Lispro 100 UNIT/ML 3 ML VIAL SUBCUT ×4 (09:06→21:03)
[2024-01-02] MEDS: Lithium Carbonate 300 MG TABLET 150 MG PO (09:08)
[2024-01-02 09:30] VITALS: BP 131/61
[2024-01-02] MEDS: lisinopriL 10 MG TABLET PO (09:30)
[2024-01-02 13:10] LABS: Glucose, Whole Blood 278 mg/dL (60-115)
[2024-01-02] MEDS: OLANZapine 5 MG TABLET PO (13:19)
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
[2024-01-02 18:01] LABS: Glucose, Whole Blood 276 mg/dL (60-115)
[2024-01-02 20:54] LABS: Glucose, Whole Blood 288 mg/dL (60-115)
[2024-01-02] MEDS: Lithium Carbonate ER 300 MG TABLET.ER PO (20:59)
[2024-01-02] MEDS: OLANZapine 10 MG TABLET PO (20:59)
[2024-01-02] MEDS: Divalproex Sodium ER 500 MG TAB.ER.24H 2000 MG PO (20:59)
[2024-01-02] MEDS: risperiDONE 1 MG TABLET PO (20:59)
[2024-01-02] MEDS: Insulin Glargine,Hum.rec.anlog 100 UNIT/ML 10 ML VIAL 35 UNIT SUBCUT (21:03)
[2024-01-03] MEDS: Levothyroxine Sodium 125 MCG TABLET PO (06:15)
[2024-01-03 08:00] VITALS: BP 135/71; PULSE 87; RESP 14; TEMP 36.3; O2SAT 97
[2024-01-03 09:21] VITALS: BP 155/71
[2024-01-03] MEDS: lisinopriL 10 MG TABLET PO (09:21)
[2024-01-03] MEDS: risperiDONE 1 MG TABLET PO ×2 (09:21→20:26)
[2024-01-03] MEDS: Lithium Carbonate 300 MG TABLET 150 MG PO (09:21)
[2024-01-03] MEDS: Magnesium Oxide 400 MG TABLET PO (09:22)
[2024-01-03] MEDS: Insulin Glargine,Hum.rec.anlog 100 UNIT/ML 10 ML VIAL 45 UNIT SUBCUT (09:52)
[2024-01-03] MEDS: Insulin Lispro 100 UNIT/ML 3 ML VIAL SUBCUT ×3 (09:55→20:41)
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
[2024-01-03 13:17] LABS: Glucose, Whole Blood 307 mg/dL (60-115)
[2024-01-03 13:17] LABS: Glucose, Whole Blood 224 mg/dL (60-115)
[2024-01-03 20:00] VITALS: BP 134/63; PULSE 86; RESP 16; TEMP 36.4; O2SAT 95
[2024-01-03] MEDS: traZODone HCL 50 MG TABLET PO (20:24)
[2024-01-03] MEDS: Divalproex Sodium ER 500 MG TAB.ER.24H 2000 MG PO (20:25)
[2024-01-03] MEDS: OLANZapine 10 MG TABLET PO (20:26)
[2024-01-03] MEDS: Insulin Glargine,Hum.rec.anlog 100 UNIT/ML 10 ML VIAL 35 UNIT SUBCUT (20:40)
[2024-01-03 20:51] LABS: Glucose, Whole Blood 236 mg/dL (60-115)
[2024-01-04 07:00] VITALS: BMI 40.5
[2024-01-04] MEDS: Levothyroxine Sodium 125 MCG TABLET PO (07:50)
[2024-01-04 08:00] VITALS: BP 198/90; PULSE 79; TEMP 36.6; O2SAT 97
[2024-01-04 08:53] LABS: Glucose, Whole Blood 117 mg/dL (60-115)
[2024-01-04] MEDS: risperiDONE 1 MG TABLET PO ×2 (08:59→20:42)
[2024-01-04 09:00] VITALS: BP 198/90; PULSE 82
[2024-01-04] MEDS: Insulin Glargine,Hum.rec.anlog 100 UNIT/ML 10 ML VIAL 45 UNIT SUBCUT (09:00)
[2024-01-04] MEDS: lisinopriL 10 MG TABLET PO (09:00)
[2024-01-04] MEDS: Magnesium Oxide 400 MG TABLET PO (09:00)
[2024-01-04] MEDS: Propranolol HCL 40 MG TABLET 80 MG PO ×2 (09:00→20:42)
[2024-01-04] MEDS: Lithium Carbonate 300 MG TABLET 150 MG PO (09:00)
[2024-01-04 12:48] LABS: Glucose, Whole Blood 164 mg/dL (60-115)
[2024-01-04] MEDS: Insulin Lispro 100 UNIT/ML 3 ML VIAL SUBCUT (13:00)
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
[2024-01-04 19:59] VITALS: BP 147/65; PULSE 73; RESP 16; TEMP 36.4; O2SAT 96
[2024-01-04 19:59] LABS: Glucose, Whole Blood 209 mg/dL (60-115)
[2024-01-04] MEDS: Divalproex Sodium ER 500 MG TAB.ER.24H 2000 MG PO (20:42)
[2024-01-04] MEDS: Lithium Carbonate ER 300 MG TABLET.ER PO (20:42)
[2024-01-04] MEDS: OLANZapine 10 MG TABLET PO (20:42)
--- NOTE | 2024-01-04 20:48 | PC.NURSE ---
JENNIFER DECLINE LANTUS INSULIN AND RISS 12 UNITS FOR POC 209. PRESCRIBER YOGESH UPDATED, NNO.
[2024-01-05 07:10] VITALS: BP 139/65; PULSE 70; RESP 14; TEMP 36.3; O2SAT 96
[2024-01-05 09:18] LABS: Glucose, Whole Blood 135 mg/dL (60-115)
[2024-01-05] MEDS: Lithium Carbonate 300 MG TABLET 150 MG PO (09:29)
[2024-01-05 09:30] VITALS: BP 139/65; PULSE 70
[2024-01-05] MEDS: lisinopriL 10 MG TABLET PO (09:30)
[2024-01-05] MEDS: Propranolol HCL 40 MG TABLET 80 MG PO ×3 (09:30→21:17)
[2024-01-05] MEDS: Magnesium Oxide 400 MG TABLET PO (09:31)
[2024-01-05] MEDS: Levothyroxine Sodium 125 MCG TABLET PO (09:31)
[2024-01-05] MEDS: risperiDONE 1 MG TABLET PO ×2 (09:32→21:17)
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
[2024-01-05 12:52] LABS: Glucose, Whole Blood 255 mg/dL (60-115)
[2024-01-05] MEDS: Insulin Lispro 100 UNIT/ML 3 ML VIAL SUBCUT ×2 (13:29→17:57)
[2024-01-05 15:45] VITALS: BP 112/66; PULSE 79
[2024-01-05 17:45] LABS: Glucose, Whole Blood 255 mg/dL (60-115)
[2024-01-05 20:40] LABS: Glucose, Whole Blood 254 mg/dL (60-115)
[2024-01-05 21:05] VITALS: BP 109/60; PULSE 75; RESP 16; TEMP 36.6; O2SAT 97
[2024-01-05] MEDS: Lithium Carbonate ER 300 MG TABLET.ER PO (21:17)
[2024-01-05] MEDS: Divalproex Sodium ER 500 MG TAB.ER.24H 2000 MG PO (21:17)
[2024-01-05] MEDS: OLANZapine 10 MG TABLET PO (21:17)
[2024-01-06 09:15] VITALS: BP 132/59; PULSE 72; RESP 16; TEMP 36.7; O2SAT 95
[2024-01-06 09:18] LABS: Glucose, Whole Blood 172 mg/dL (60-115)
[2024-01-06] MEDS: Propranolol HCL 40 MG TABLET 80 MG PO ×3 (09:46→21:20)
[2024-01-06] MEDS: Levothyroxine Sodium 125 MCG TABLET PO (09:46)
[2024-01-06] MEDS: lisinopriL 10 MG TABLET PO (09:46)
[2024-01-06] MEDS: Lithium Carbonate 300 MG TABLET 150 MG PO (09:46)
[2024-01-06] MEDS: Magnesium Oxide 400 MG TABLET PO (09:46)
[2024-01-06] MEDS: risperiDONE 1 MG TABLET PO ×2 (09:47→21:20)
[2024-01-06] MEDS: Insulin Lispro 100 UNIT/ML 3 ML VIAL SUBCUT ×2 (09:48→21:45)
[2024-01-06] MEDS: Insulin Glargine,Hum.rec.anlog 100 UNIT/ML 10 ML VIAL 45 UNIT SUBCUT (09:48)
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
[2024-01-06 12:57] LABS: Glucose, Whole Blood 166 mg/dL (60-115)
[2024-01-06 14:18] VITALS: BP 146/67; PULSE 74
[2024-01-06 18:06] LABS: Glucose, Whole Blood 179 mg/dL (60-115)
[2024-01-06 21:15] VITALS: BP 140/79; PULSE 86; RESP 16; TEMP 36.3; O2SAT 95
[2024-01-06] MEDS: Insulin Glargine,Hum.rec.anlog 100 UNIT/ML 10 ML VIAL 35 UNIT SUBCUT (21:18)
[2024-01-06] MEDS: OLANZapine 10 MG TABLET PO (21:20)
[2024-01-06] MEDS: Lithium Carbonate ER 300 MG TABLET.ER PO (21:20)
[2024-01-06] MEDS: Divalproex Sodium ER 500 MG TAB.ER.24H 2000 MG PO (21:20)
[2024-01-06 21:38] LABS: Glucose, Whole Blood 303 mg/dL (60-115)
[2024-01-07] MEDS: Levothyroxine Sodium 125 MCG TABLET PO (06:27)
[2024-01-07 08:26] VITALS: BP 127/79; PULSE 62; RESP 16; TEMP 36.8; O2SAT 98
[2024-01-07 08:45] LABS: Glucose, Whole Blood 152 mg/dL (60-115)
[2024-01-07] MEDS: risperiDONE 1 MG TABLET PO ×2 (08:49→21:44)
[2024-01-07] MEDS: Magnesium Oxide 400 MG TABLET PO (08:49)
[2024-01-07] MEDS: Propranolol HCL 40 MG TABLET 80 MG PO ×2 (08:49→21:44)
[2024-01-07] MEDS: Lithium Carbonate 300 MG TABLET 150 MG PO (08:50)
[2024-01-07] MEDS: lisinopriL 10 MG TABLET PO (08:50)
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
[2024-01-07 12:44] LABS: Glucose, Whole Blood 225 mg/dL (60-115)
[2024-01-07 15:29] VITALS: BP 103/52; PULSE 68
[2024-01-07 21:35] VITALS: BP 137/65; PULSE 70; RESP 16; TEMP 36.4; O2SAT 96
[2024-01-07 21:39] LABS: Glucose, Whole Blood 300 mg/dL (60-115)
[2024-01-07] MEDS: Lithium Carbonate ER 300 MG TABLET.ER PO (21:43)
[2024-01-07] MEDS: OLANZapine 10 MG TABLET PO (21:44)
[2024-01-07] MEDS: Divalproex Sodium ER 500 MG TAB.ER.24H 2000 MG PO (21:44)
[2024-01-07] MEDS: Insulin Lispro 100 UNIT/ML 3 ML VIAL SUBCUT (21:47)
[2024-01-07] MEDS: Insulin Glargine,Hum.rec.anlog 100 UNIT/ML 10 ML VIAL 35 UNIT SUBCUT (21:48)
[2024-01-08 08:28] LABS: Glucose, Whole Blood 97 mg/dL (60-115)
[2024-01-08] MEDS: Insulin Glargine,Hum.rec.anlog 100 UNIT/ML 10 ML VIAL 45 UNIT SUBCUT (09:23)
[2024-01-08 09:24] VITALS: BP 144/89; PULSE 67
[2024-01-08] MEDS: Magnesium Oxide 400 MG TABLET PO (09:24)
[2024-01-08] MEDS: lisinopriL 10 MG TABLET PO (09:24)
[2024-01-08] MEDS: risperiDONE 1 MG TABLET PO ×2 (09:24→22:54)
[2024-01-08] MEDS: Propranolol HCL 40 MG TABLET 80 MG PO ×3 (09:24→22:54)
[2024-01-08] MEDS: Lithium Carbonate 300 MG TABLET 150 MG PO (09:24)
[2024-01-08] MEDS: Levothyroxine Sodium 125 MCG TABLET PO (09:30)
[2024-01-08 09:37] VITALS: BP 144/89; PULSE 67; RESP 16; TEMP 36.6; O2SAT 97
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
[2024-01-08 12:50] LABS: Glucose, Whole Blood 152 mg/dL (60-115)
[2024-01-08] MEDS: Insulin Lispro 100 UNIT/ML 3 ML VIAL SUBCUT ×2 (13:53→18:05)
[2024-01-08 14:23] VITALS: BP 129/61; PULSE 68
[2024-01-08 17:43] LABS: Glucose, Whole Blood 205 mg/dL (60-115)
[2024-01-08 22:48] VITALS: BP 117/53; PULSE 64; RESP 16; TEMP 36.1
[2024-01-08 22:50] LABS: Glucose, Whole Blood 194 mg/dL (60-115)
[2024-01-08] MEDS: Lithium Carbonate ER 300 MG TABLET.ER PO (22:54)
[2024-01-08] MEDS: Divalproex Sodium ER 500 MG TAB.ER.24H 2000 MG PO (22:54)
[2024-01-08] MEDS: OLANZapine 10 MG TABLET PO (22:54)
[2024-01-08] MEDS: Insulin Glargine,Hum.rec.anlog 100 UNIT/ML 10 ML VIAL 35 UNIT SUBCUT (23:00)
--- NOTE | 2024-01-08 23:01 | PC.NURSE ---
POC 194 at HS. Pt has been in bed and asleep majority of the evening, has not been awake and snacking since eating dinner. Per sliding scale pt would receive 8 units of lispro. Provider notified, agreed to hold HS lispro due to POC and pt not snacking during the evening.
[2024-01-09 08:25] LABS: Glucose, Whole Blood 190 mg/dL (60-115)
[2024-01-09 08:42] VITALS: BP 128/72; PULSE 70; RESP 18; TEMP 36.3; O2SAT 95
[2024-01-09] MEDS: Lithium Carbonate 300 MG TABLET 150 MG PO (08:44)
[2024-01-09] MEDS: Propranolol HCL 40 MG TABLET 80 MG PO ×3 (08:45→21:01)
[2024-01-09] MEDS: risperiDONE 1 MG TABLET PO ×2 (08:45→21:02)
[2024-01-09] MEDS: Levothyroxine Sodium 125 MCG TABLET PO (08:45)
[2024-01-09] MEDS: lisinopriL 10 MG TABLET PO (08:45)
[2024-01-09] MEDS: Magnesium Oxide 400 MG TABLET PO (08:45)
[2024-01-09] MEDS: Insulin Glargine,Hum.rec.anlog 100 UNIT/ML 10 ML VIAL 45 UNIT SUBCUT (08:49)
[2024-01-09] MEDS: Insulin Lispro 100 UNIT/ML 3 ML VIAL SUBCUT ×4 (08:50→21:12)
[2024-01-09 12:33] LABS: Glucose, Whole Blood 166 mg/dL (60-115)
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
[2024-01-09 16:05] VITALS: BP 147/68; PULSE 65
[2024-01-09 17:58] LABS: Glucose, Whole Blood 130 mg/dL (60-115)
[2024-01-09 20:00] VITALS: BP 127/57; PULSE 75; RESP 18; TEMP 36.6; O2SAT 95
[2024-01-09] MEDS: OLANZapine 10 MG TABLET PO (21:00)
[2024-01-09] MEDS: Divalproex Sodium ER 500 MG TAB.ER.24H 2000 MG PO (21:00)
[2024-01-09] MEDS: Lithium Carbonate ER 300 MG TABLET.ER PO (21:01)
[2024-01-09] MEDS: Insulin Glargine,Hum.rec.anlog 100 UNIT/ML 10 ML VIAL 35 UNIT SUBCUT (21:06)
[2024-01-10 00:37] LABS: Glucose, Whole Blood 261 mg/dL (60-115)
[2024-01-10] MEDS: traZODone HCL 50 MG TABLET PO (00:38)
[2024-01-10] MEDS: Levothyroxine Sodium 125 MCG TABLET PO (06:44)
[2024-01-10 08:37] LABS: Glucose, Whole Blood 143 mg/dL (60-115)
[2024-01-10 08:45] VITALS: BP 136/59; PULSE 68; RESP 18; TEMP 36.4; O2SAT 98
[2024-01-10] MEDS: Propranolol HCL 40 MG TABLET 80 MG PO ×2 (08:50→20:51)
[2024-01-10] MEDS: Lithium Carbonate 300 MG TABLET 150 MG PO (08:50)
[2024-01-10] MEDS: risperiDONE 1 MG TABLET PO ×2 (08:51→20:49)
[2024-01-10] MEDS: lisinopriL 10 MG TABLET PO (08:51)
[2024-01-10] MEDS: Magnesium Oxide 400 MG TABLET PO (08:51)
[2024-01-10] MEDS: Insulin Glargine,Hum.rec.anlog 100 UNIT/ML 10 ML VIAL 45 UNIT SUBCUT (09:15)
[2024-01-10] MEDS: Insulin Lispro 100 UNIT/ML 3 ML VIAL SUBCUT ×4 (09:15→20:44)
[2024-01-10 12:41] LABS: Glucose, Whole Blood 191 mg/dL (60-115)
[2024-01-10 15:24] VITALS: BP 112/55; PULSE 67; TEMP 36.1; O2SAT 98
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
[2024-01-10 17:46] LABS: Glucose, Whole Blood 167 mg/dL (60-115)
[2024-01-10 20:00] VITALS: BP 113/56; PULSE 72; RESP 16; TEMP 36.6; O2SAT 98
[2024-01-10 20:35] LABS: Glucose, Whole Blood 260 mg/dL (60-115)
[2024-01-10] MEDS: Insulin Glargine,Hum.rec.anlog 100 UNIT/ML 10 ML VIAL 35 UNIT SUBCUT (20:45)
[2024-01-10] MEDS: Divalproex Sodium ER 500 MG TAB.ER.24H 2000 MG PO (20:48)
[2024-01-10] MEDS: OLANZapine 10 MG TABLET PO (20:49)
[2024-01-10] MEDS: Lithium Carbonate ER 300 MG TABLET.ER PO (20:49)
[2024-01-11] MEDS: Levothyroxine Sodium 125 MCG TABLET PO (06:29)
[2024-01-11 07:00] VITALS: BMI 40.6
[2024-01-11 08:04] VITALS: BP 152/62; PULSE 62; RESP 18; TEMP 36.7; O2SAT 97
[2024-01-11 08:34] LABS: Glucose, Whole Blood 69 mg/dL (60-115)
[2024-01-11 08:53] LABS: Glucose, Whole Blood 99 mg/dL (60-115)
[2024-01-11 09:04] VITALS: BP 152/62
[2024-01-11] MEDS: risperiDONE 1 MG TABLET PO ×2 (09:04→21:18)
[2024-01-11] MEDS: lisinopriL 10 MG TABLET PO (09:04)
[2024-01-11] MEDS: Lithium Carbonate 300 MG TABLET 150 MG PO (09:04)
[2024-01-11] MEDS: Magnesium Oxide 400 MG TABLET PO (09:04)
[2024-01-11 09:05] VITALS: BP 152/62; PULSE 87
[2024-01-11] MEDS: Propranolol HCL 40 MG TABLET 80 MG PO ×3 (09:05→21:18)
--- NOTE | 2024-01-11 09:12 | PC.NURSE ---
Patients POC at 0830 was 69, pt provided 4 oz of juice. Pts repeat POC at 0846 was 99. No other s/sx of hypoglycemia noted. Pt A&O
[2024-01-11] MEDS: Insulin Glargine,Hum.rec.anlog 100 UNIT/ML 10 ML VIAL 45 UNIT SUBCUT (09:44)
[2024-01-11 12:30] LABS: Glucose, Whole Blood 203 mg/dL (60-115)
[2024-01-11] MEDS: Insulin Lispro 100 UNIT/ML 3 ML VIAL SUBCUT ×2 (13:21→21:20)
[2024-01-11 16:10] VITALS: BP 130/76; PULSE 71
[2024-01-11 17:43] LABS: Glucose, Whole Blood 131 mg/dL (60-115)
[2024-01-11 20:54] LABS: Glucose, Whole Blood 307 mg/dL (60-115)
[2024-01-11 21:15] VITALS: BP 146/65; PULSE 76; RESP 16; TEMP 36.9; O2SAT 99
[2024-01-11] MEDS: Divalproex Sodium ER 500 MG TAB.ER.24H 2000 MG PO (21:17)
[2024-01-11] MEDS: Lithium Carbonate ER 300 MG TABLET.ER PO (21:18)
[2024-01-11] MEDS: OLANZapine 10 MG TABLET PO (21:18)
[2024-01-11] MEDS: Insulin Glargine,Hum.rec.anlog 100 UNIT/ML 10 ML VIAL 35 UNIT SUBCUT (21:20)
[2024-01-12] MEDS: Levothyroxine Sodium 125 MCG TABLET PO (06:25)
[2024-01-12 08:42] LABS: Glucose, Whole Blood 148 mg/dL (60-115)
[2024-01-12] MEDS: Lithium Carbonate 300 MG TABLET 150 MG PO (08:53)
[2024-01-12 08:54] VITALS: BP 108/54; PULSE 73; RESP 18; TEMP 36.9; O2SAT 98
[2024-01-12] MEDS: lisinopriL 10 MG TABLET PO (08:54)
[2024-01-12] MEDS: Propranolol HCL 40 MG TABLET 80 MG PO ×3 (08:54→21:59)
[2024-01-12] MEDS: risperiDONE 1 MG TABLET PO ×2 (08:54→21:59)
[2024-01-12] MEDS: Magnesium Oxide 400 MG TABLET PO (08:54)
[2024-01-12] MEDS: Insulin Lispro 100 UNIT/ML 3 ML VIAL SUBCUT ×3 (08:59→17:53)
[2024-01-12] MEDS: Insulin Glargine,Hum.rec.anlog 100 UNIT/ML 10 ML VIAL 45 UNIT SUBCUT (08:59)
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
[2024-01-12 12:53] LABS: Glucose, Whole Blood 240 mg/dL (60-115)
[2024-01-12 14:43] VITALS: BP 121/56; PULSE 70
[2024-01-12 17:48] LABS: Glucose, Whole Blood 282 mg/dL (60-115)
[2024-01-12 21:15] VITALS: BP 108/64; PULSE 71; RESP 16; TEMP 36.2; O2SAT 98
[2024-01-12 21:51] LABS: Glucose, Whole Blood 210 mg/dL (60-115)
[2024-01-12] MEDS: Lithium Carbonate ER 300 MG TABLET.ER PO (21:59)
[2024-01-12] MEDS: OLANZapine 10 MG TABLET PO (21:59)
[2024-01-12] MEDS: Divalproex Sodium ER 500 MG TAB.ER.24H 2000 MG PO (21:59)
[2024-01-12] MEDS: Insulin Glargine,Hum.rec.anlog 100 UNIT/ML 10 ML VIAL 35 UNIT SUBCUT (22:04)
[2024-01-13] MEDS: Levothyroxine Sodium 125 MCG TABLET PO (06:17)
[2024-01-13 08:49] LABS: Glucose, Whole Blood 191 mg/dL (60-115)
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
[2024-01-13 09:07] VITALS: BP 122/57; PULSE 61; RESP 18; TEMP 36.1; O2SAT 95
[2024-01-13] MEDS: Insulin Lispro 100 UNIT/ML 3 ML VIAL SUBCUT ×3 (09:08→18:07)
[2024-01-13] MEDS: Insulin Glargine,Hum.rec.anlog 100 UNIT/ML 10 ML VIAL 45 UNIT SUBCUT (09:09)
[2024-01-13] MEDS: Magnesium Oxide 400 MG TABLET PO (09:10)
[2024-01-13] MEDS: risperiDONE 1 MG TABLET PO ×2 (09:10→22:16)
[2024-01-13] MEDS: Lithium Carbonate 300 MG TABLET 150 MG PO (09:11)
[2024-01-13] MEDS: lisinopriL 10 MG TABLET PO (09:11)
[2024-01-13] MEDS: Propranolol HCL 40 MG TABLET 80 MG PO ×3 (09:11→22:16)
[2024-01-13 12:58] LABS: Glucose, Whole Blood 156 mg/dL (60-115)
[2024-01-13 15:47] VITALS: BP 115/55; PULSE 73
[2024-01-13 17:31] LABS: Glucose, Whole Blood 140 mg/dL (60-115)
[2024-01-13 21:06] LABS: Glucose, Whole Blood 89 mg/dL (60-115)
[2024-01-13 21:49] LABS: Glucose, Whole Blood 97 mg/dL (60-115)
[2024-01-13 21:54] VITALS: BP 153/70; PULSE 63; RESP 16; TEMP 36.1; O2SAT 98
[2024-01-13] MEDS: OLANZapine 10 MG TABLET PO (22:16)
[2024-01-13] MEDS: Divalproex Sodium ER 500 MG TAB.ER.24H 2000 MG PO (22:16)
[2024-01-13] MEDS: Lithium Carbonate ER 300 MG TABLET.ER PO (22:16)
[2024-01-13] MEDS: Insulin Glargine,Hum.rec.anlog 100 UNIT/ML 10 ML VIAL 35 UNIT SUBCUT (22:18)
[2024-01-14 09:15] LABS: Glucose, Whole Blood 75 mg/dL (60-115)
[2024-01-14 09:15] LABS: Glucose, Whole Blood 60 mg/dL (60-115)
[2024-01-14 09:15] LABS: Glucose, Whole Blood 44 mg/dL (60-115)
[2024-01-14 09:45] VITALS: BP 142/80; PULSE 88; RESP 18; TEMP 36.4; O2SAT 96
[2024-01-14 09:53] VITALS: BP 142/80; PULSE 88
[2024-01-14] MEDS: risperiDONE 1 MG TABLET PO ×2 (09:53→20:51)
[2024-01-14] MEDS: lisinopriL 10 MG TABLET PO (09:53)
[2024-01-14] MEDS: Magnesium Oxide 400 MG TABLET PO (09:53)
[2024-01-14] MEDS: Propranolol HCL 40 MG TABLET 80 MG PO ×2 (09:53→20:51)
[2024-01-14] MEDS: Levothyroxine Sodium 125 MCG TABLET PO (09:54)
[2024-01-14] MEDS: Lithium Carbonate 300 MG TABLET 150 MG PO (09:54)
--- NOTE | 2024-01-14 10:59 | PC.NURSE ---
fbs at [id number], - pt alert and oriented - immediate recheck 60. Pt able to drink 8 oz apple juice. Recheck [id number]. Pt then proceeded to eat her breakfast. Dr Philomena WADE and Lori Sue BEVEL GEAR GENERATOR OPERATOR informed. LAURO aGr heldx1 today per Dr Quach's order.
[2024-01-14 12:45] LABS: Glucose, Whole Blood 144 mg/dL (60-115)
[2024-01-14 15:35] LABS: Glucose, Whole Blood 166 mg/dL (60-115)
[2024-01-14 16:10] LABS: MANUAL DIFF FLAG NO
[2024-01-14 16:19] LABS: Basophils Percent Auto 0.4 % (0-2); Eosinophils Absolute Auto 0.1 X10*3/uL (0.0-0.4); Eosinophils Percent Auto 1.8 % (0-4); Hematocrit 37.7 % (37.0-47.0); Hemoglobin 12.7 g/dl (12.0-16.0); Imm Gran Abs Auto 0.02 X10*3/uL (0.00-0.03); Imm Gran Pct Auto 0.4 % (0.0-0.4); Lymphocytes Absolute Auto 1.7 X10*3/uL (1.2-4.9); Lymphocytes Percent Auto 30.5 % (20-40); Mean Corpuscular HGB Conc 33.7 g/dl (31.0-35.0); Mean Corpuscular Hemoglobin 29.8 pg (27.0-33.0); Mean Corpuscular Volume 88.5 fL (80.0-98.0); Mean Platelet Volume 9.4 fL (9.4-12.3); Monocytes Absolute Auto 0.7 X10*3/uL (0.1-1.2); Monocytes Percent Auto 11.8 % (2-11); Neutrophils Absolute Auto 3.2 x10*3/uL (2.0-8.3); Neutrophils Percent Auto 55.1 % (45-73); Platelet Count 145 X10*3/uL (160-400); Red Blood Count 4.26 X10*6/uL (4.20-5.50); Red Cell Distribution Width 14.4 % (11.0-16.0); White Blood Count 5.7 X10*3/uL (4.8-10.8)
[2024-01-14 16:22] LABS: Ammonia 48 umol/L (13-55)
[2024-01-14 16:26] LABS: Lithium 0.63 mmol/L (0.60-1.20)
[2024-01-14 16:30] LABS: Valproate 75.5 mcg/mL (50.0-100.0)
[2024-01-14 16:34] LABS: Alanine Aminotransferase 10 U/L (0-31); Albumin Level 3.4 g/dL (3.5-5.0); Alkaline Phosphatase 49 U/L (39-117); Anion Gap 10 (12-20); Aspartate Amino Transferase 11 U/L (5-31); Bilirubin Total 0.2 mg/dL (0.0-1.0); Blood Urea Nitrogen 17 mg/dL (9-16); Calcium 8.9 mg/dL (8.4-10.2); Carbon Dioxide 27 mmol/L (22-29); Chloride 108 mmol/L (96-108); Creatinine Clr Calc Pharmacy 85.7; Estimated Glomerular Filt Rate > 60; Glucose Random 179 mg/dL (60-115); Potassium 4.6 mmol/L (3.3-5.1); Sodium 140 mmol/L (135-145); Total Protein 5.8 g/dL (6.5-8.0)
[2024-01-14 17:40] LABS: Glucose, Whole Blood 132 mg/dL (60-115)
[2024-01-14 20:00] VITALS: BP 146/61; PULSE 72; RESP 18; TEMP 36.9; O2SAT 95
[2024-01-14 20:43] LABS: Glucose, Whole Blood 139 mg/dL (60-115)
[2024-01-14] MEDS: Divalproex Sodium ER 500 MG TAB.ER.24H 2000 MG PO (20:50)
[2024-01-14] MEDS: Lithium Carbonate ER 300 MG TABLET.ER PO (20:51)
[2024-01-14] MEDS: OLANZapine 10 MG TABLET PO (20:51)
[2024-01-14] MEDS: Insulin Glargine,Hum.rec.anlog 100 UNIT/ML 10 ML VIAL 35 UNIT SUBCUT (21:10)
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
[2024-01-15] MEDS: Acetaminophen 325 MG TABLET 650 MG PO (00:56)
[2024-01-15 08:25] LABS: Glucose, Whole Blood 74 mg/dL (60-115)
[2024-01-15 09:25] VITALS: BP 153/69; PULSE 56; RESP 16; TEMP 36.9; O2SAT 98
[2024-01-15] MEDS: Levothyroxine Sodium 125 MCG TABLET PO (09:30)
[2024-01-15] MEDS: Magnesium Oxide 400 MG TABLET PO (09:30)
[2024-01-15] MEDS: risperiDONE 1 MG TABLET PO (09:30)
[2024-01-15] MEDS: Lithium Carbonate 300 MG TABLET 150 MG PO (09:31)
[2024-01-15] MEDS: lisinopriL 10 MG TABLET PO (09:31)
[2024-01-15 09:39] VITALS: BP 153/69; PULSE 56
[2024-01-15 12:57] LABS: Glucose, Whole Blood 266 mg/dL (60-115)
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
[2024-01-15 14:37] VITALS: BP 133/60; PULSE 79; RESP 16; TEMP 37.4; O2SAT 96
[2024-01-15] MEDS: Insulin Lispro 100 UNIT/ML 3 ML VIAL SUBCUT ×3 (14:38→21:34)
[2024-01-15] MEDS: Propranolol HCL 40 MG TABLET 80 MG PO ×2 (14:39→21:35)
[2024-01-15 17:53] LABS: Glucose, Whole Blood 208 mg/dL (60-115)
[2024-01-15 21:00] VITALS: BP 138/60; PULSE 79; RESP 16; TEMP 36.6; O2SAT 95
[2024-01-15 21:30] LABS: Glucose, Whole Blood 222 mg/dL (60-115)
[2024-01-15] MEDS: Divalproex Sodium ER 500 MG TAB.ER.24H 2000 MG PO (21:35)
[2024-01-15] MEDS: risperiDONE 2 MG TABLET PO (21:35)
[2024-01-15] MEDS: Insulin Glargine,Hum.rec.anlog 100 UNIT/ML 10 ML VIAL 35 UNIT SUBCUT (21:35)
[2024-01-15] MEDS: OLANZapine 7.5 MG TABLET PO (21:36)
[2024-01-15] MEDS: Lithium Carbonate ER 300 MG TABLET.ER PO (21:36)
[2024-01-16] VITALS (7 sets, daily range): BP systolic 133–137; BP diastolic 60–64; PULSE 68–73; RESP 12–20; TEMP 36.2–36.4; O2SAT 96–98
[2024-01-16 07:47] LABS: Glucose, Whole Blood 87 mg/dL (60-115)
[2024-01-16] MEDS: Lithium Carbonate 300 MG TABLET 150 MG PO (08:08)
[2024-01-16] MEDS: lisinopriL 10 MG TABLET PO (08:08)
[2024-01-16] MEDS: Propranolol HCL 40 MG TABLET 80 MG PO ×3 (08:09→21:02)
[2024-01-16] MEDS: Levothyroxine Sodium 125 MCG TABLET PO (08:10)
[2024-01-16] MEDS: Magnesium Oxide 400 MG TABLET PO (08:10)
[2024-01-16] MEDS: Insulin Glargine,Hum.rec.anlog 100 UNIT/ML 10 ML VIAL 20 UNIT SUBCUT (09:34)
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
--- NOTE | 2024-01-16 12:00 | PM.EVENT ---
Event Note Date of Service: 01/16/24 Event Note: Pt now more compliant with insulin regime, less manic. Has had several instances of morning hypoglycemia. Reduce lantus to 30 unitly, continue 20units daily. Change SSI to TIDAC, no longer administer HS Time Spent With Patient Time: Total time managing care of this patient today ____ minutes.
[2024-01-16 12:21] LABS: Glucose, Whole Blood 187 mg/dL (60-115)
[2024-01-16] MEDS: Insulin Lispro 100 UNIT/ML 3 ML VIAL SUBCUT ×2 (12:56→17:55)
[2024-01-16 17:50] LABS: Glucose, Whole Blood 182 mg/dL (60-115)
[2024-01-16 20:51] LABS: Glucose, Whole Blood 240 mg/dL (60-115)
[2024-01-16] MEDS: Insulin Glargine,Hum.rec.anlog 100 UNIT/ML 10 ML VIAL 30 UNIT SUBCUT (21:01)
[2024-01-16] MEDS: Divalproex Sodium ER 500 MG TAB.ER.24H 2000 MG PO (21:02)
[2024-01-16] MEDS: Lithium Carbonate ER 300 MG TABLET.ER PO (21:02)
[2024-01-16] MEDS: OLANZapine 7.5 MG TABLET PO (21:02)
[2024-01-16] MEDS: risperiDONE 2 MG TABLET PO (21:03)
[2024-01-17] MEDS: Levothyroxine Sodium 125 MCG TABLET PO (06:48)
[2024-01-17 07:41] VITALS: BP 124/55; PULSE 70; RESP 14; TEMP 36.5; O2SAT 98
[2024-01-17 08:27] LABS: Glucose, Whole Blood 143 mg/dL (60-115)
[2024-01-17] MEDS: Insulin Glargine,Hum.rec.anlog 100 UNIT/ML 10 ML VIAL 20 UNIT SUBCUT (08:38)
[2024-01-17] MEDS: Insulin Lispro 100 UNIT/ML 3 ML VIAL SUBCUT ×3 (08:39→17:34)
[2024-01-17 08:40] VITALS: BP 124/55
[2024-01-17] MEDS: lisinopriL 10 MG TABLET PO (08:40)
[2024-01-17] MEDS: Magnesium Oxide 400 MG TABLET PO (08:40)
[2024-01-17] MEDS: Lithium Carbonate 300 MG TABLET 150 MG PO (08:41)
[2024-01-17 08:42] VITALS: BP 124/55; PULSE 70
[2024-01-17] MEDS: Propranolol HCL 40 MG TABLET 80 MG PO ×3 (08:42→20:45)
[2024-01-17 12:29] LABS: Glucose, Whole Blood 176 mg/dL (60-115)
[2024-01-17 15:25] VITALS: BP 116/54; PULSE 70; RESP 20; TEMP 36.4; O2SAT 97
[2024-01-17 15:28] VITALS: BP 116/54; PULSE 70
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
[2024-01-17 17:01] LABS: Glucose, Whole Blood 160 mg/dL (60-115)
[2024-01-17 20:39] VITALS: BP 156/68; PULSE 70; RESP 16; TEMP 35.8; O2SAT 96
[2024-01-17] MEDS: Lithium Carbonate ER 300 MG TABLET.ER PO (20:45)
[2024-01-17] MEDS: Divalproex Sodium ER 500 MG TAB.ER.24H 2000 MG PO (20:45)
[2024-01-17] MEDS: risperiDONE 2 MG TABLET PO (20:45)
[2024-01-17] MEDS: Insulin Glargine,Hum.rec.anlog 100 UNIT/ML 10 ML VIAL 30 UNIT SUBCUT (20:46)
[2024-01-17] MEDS: OLANZapine 7.5 MG TABLET PO (20:46)
[2024-01-17 20:54] LABS: Glucose, Whole Blood 177 mg/dL (60-115)
[2024-01-17] MEDS: traZODone HCL 50 MG TABLET PO (20:58)
[2024-01-18] MEDS: Levothyroxine Sodium 125 MCG TABLET PO (06:54)
[2024-01-18 07:00] VITALS: BMI 40.3
[2024-01-18 07:43] VITALS: BP 135/60; PULSE 68; RESP 14; TEMP 35.8; O2SAT 94
[2024-01-18 08:48] LABS: Glucose, Whole Blood 137 mg/dL (60-115)
[2024-01-18] MEDS: Insulin Glargine,Hum.rec.anlog 100 UNIT/ML 10 ML VIAL 20 UNIT SUBCUT (09:11)
[2024-01-18 09:12] VITALS: BP 123/65
[2024-01-18] MEDS: Lithium Carbonate 300 MG TABLET 150 MG PO (09:12)
[2024-01-18] MEDS: Insulin Lispro 100 UNIT/ML 3 ML VIAL SUBCUT ×3 (09:12→18:12)
[2024-01-18] MEDS: lisinopriL 10 MG TABLET PO (09:12)
[2024-01-18 09:13] VITALS: BP 123/65; PULSE 68
[2024-01-18] MEDS: Magnesium Oxide 400 MG TABLET PO (09:13)
[2024-01-18] MEDS: Propranolol HCL 40 MG TABLET 80 MG PO ×3 (09:13→21:06)
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
[2024-01-18 13:17] LABS: Glucose, Whole Blood 210 mg/dL (60-115)
[2024-01-18 14:58] VITALS: BP 121/58; PULSE 71
[2024-01-18 18:01] LABS: Glucose, Whole Blood 292 mg/dL (60-115)
[2024-01-18] MEDS: Divalproex Sodium ER 500 MG TAB.ER.24H 2000 MG PO (21:05)
[2024-01-18] MEDS: OLANZapine 7.5 MG TABLET PO (21:05)
[2024-01-18 21:06] VITALS: BP 127/58; PULSE 73; RESP 16; TEMP 36.2; O2SAT 97
[2024-01-18] MEDS: risperiDONE 2 MG TABLET PO (21:06)
[2024-01-18] MEDS: Lithium Carbonate ER 300 MG TABLET.ER PO (21:06)
[2024-01-18] MEDS: Insulin Glargine,Hum.rec.anlog 100 UNIT/ML 10 ML VIAL 30 UNIT SUBCUT (21:07)
[2024-01-18] MEDS: traZODone HCL 50 MG TABLET PO (21:07)
[2024-01-18] MEDS: OLANZapine 5 MG TABLET PO (21:07)
[2024-01-18 21:09] LABS: Glucose, Whole Blood 235 mg/dL (60-115)
[2024-01-19] MEDS: Levothyroxine Sodium 125 MCG TABLET PO (06:14)
[2024-01-19 08:49] LABS: Glucose, Whole Blood 120 mg/dL (60-115)
[2024-01-19 09:20] VITALS: BP 144/62; PULSE 64; RESP 18; TEMP 36.3; O2SAT 98
[2024-01-19] MEDS: Insulin Glargine,Hum.rec.anlog 100 UNIT/ML 10 ML VIAL 20 UNIT SUBCUT (09:21)
[2024-01-19] MEDS: Insulin Lispro 100 UNIT/ML 3 ML VIAL SUBCUT ×3 (09:22→18:15)
[2024-01-19] MEDS: Magnesium Oxide 400 MG TABLET PO (09:23)
[2024-01-19] MEDS: lisinopriL 10 MG TABLET PO (09:23)
[2024-01-19] MEDS: Lithium Carbonate 300 MG TABLET 150 MG PO (09:23)
[2024-01-19] MEDS: Propranolol HCL 40 MG TABLET 80 MG PO ×3 (09:23→20:53)
[2024-01-19 13:01] LABS: Glucose, Whole Blood 201 mg/dL (60-115)
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
[2024-01-19 15:03] VITALS: BP 117/52; PULSE 72
[2024-01-19 17:58] LABS: Glucose, Whole Blood 220 mg/dL (60-115)
[2024-01-19 20:45] VITALS: BP 146/64; PULSE 76; RESP 16; TEMP 36.1; O2SAT 98
[2024-01-19 20:46] LABS: Glucose, Whole Blood 236 mg/dL (60-115)
[2024-01-19] MEDS: Divalproex Sodium ER 500 MG TAB.ER.24H 2000 MG PO (20:52)
[2024-01-19] MEDS: Lithium Carbonate ER 300 MG TABLET.ER PO (20:52)
[2024-01-19] MEDS: OLANZapine 7.5 MG TABLET PO (20:53)
[2024-01-19] MEDS: risperiDONE 2 MG TABLET PO (20:53)
[2024-01-19] MEDS: traZODone HCL 50 MG TABLET PO (20:53)
[2024-01-19] MEDS: Insulin Glargine,Hum.rec.anlog 100 UNIT/ML 10 ML VIAL 30 UNIT SUBCUT (20:54)
[2024-01-20] MEDS: Levothyroxine Sodium 125 MCG TABLET PO (06:47)
[2024-01-20 07:30] VITALS: BP 127/61; PULSE 70; RESP 16; TEMP 36.4; O2SAT 97
[2024-01-20 09:05] LABS: Glucose, Whole Blood 167 mg/dL (60-115)
[2024-01-20] MEDS: Insulin Glargine,Hum.rec.anlog 100 UNIT/ML 10 ML VIAL 20 UNIT SUBCUT (09:32)
[2024-01-20] MEDS: Insulin Lispro 100 UNIT/ML 3 ML VIAL SUBCUT ×3 (09:33→18:05)
[2024-01-20] MEDS: Magnesium Oxide 400 MG TABLET PO (09:34)
[2024-01-20] MEDS: Lithium Carbonate 300 MG TABLET 150 MG PO (09:34)
[2024-01-20] MEDS: Propranolol HCL 40 MG TABLET 80 MG PO ×3 (09:34→22:07)
[2024-01-20] MEDS: lisinopriL 10 MG TABLET PO (09:34)
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
[2024-01-20 13:13] LABS: Glucose, Whole Blood 165 mg/dL (60-115)
[2024-01-20 15:32] VITALS: BP 117/60; PULSE 70
[2024-01-20 17:53] LABS: Glucose, Whole Blood 176 mg/dL (60-115)
[2024-01-20 22:00] VITALS: BP 137/70; PULSE 70; RESP 16; TEMP 36.4; O2SAT 98
[2024-01-20] MEDS: Insulin Glargine,Hum.rec.anlog 100 UNIT/ML 10 ML VIAL 30 UNIT SUBCUT (22:05)
[2024-01-20] MEDS: Divalproex Sodium ER 500 MG TAB.ER.24H 2000 MG PO (22:06)
[2024-01-20] MEDS: Lithium Carbonate ER 300 MG TABLET.ER PO (22:07)
[2024-01-20] MEDS: risperiDONE 2 MG TABLET PO (22:07)
[2024-01-20] MEDS: traZODone HCL 50 MG TABLET PO (22:07)
[2024-01-20] MEDS: OLANZapine 7.5 MG TABLET PO (22:07)
[2024-01-20 22:14] LABS: Glucose, Whole Blood 201 mg/dL (60-115)
[2024-01-21] MEDS: Levothyroxine Sodium 125 MCG TABLET PO (06:32)
[2024-01-21 07:45] VITALS: BP 121/55; PULSE 74; RESP 12; TEMP 36.4; O2SAT 98
[2024-01-21 08:28] LABS: Glucose, Whole Blood 319 mg/dL (60-115)
[2024-01-21 09:22] VITALS: BP 112/55; PULSE 69
[2024-01-21] MEDS: Insulin Lispro 100 UNIT/ML 3 ML VIAL SUBCUT ×3 (09:34→17:52)
[2024-01-21] MEDS: Insulin Glargine,Hum.rec.anlog 100 UNIT/ML 10 ML VIAL 20 UNIT SUBCUT (09:35)
[2024-01-21] MEDS: Propranolol HCL 40 MG TABLET 80 MG PO ×3 (09:36→21:58)
[2024-01-21] MEDS: Magnesium Oxide 400 MG TABLET PO (09:37)
[2024-01-21] MEDS: Lithium Carbonate 300 MG TABLET 150 MG PO (09:38)
[2024-01-21] MEDS: lisinopriL 10 MG TABLET PO (09:39)
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
[2024-01-21 12:58] LABS: Glucose, Whole Blood 189 mg/dL (60-115)
[2024-01-21 14:44] VITALS: BP 112/56; PULSE 73
[2024-01-21 17:46] LABS: Glucose, Whole Blood 312 mg/dL (60-115)
[2024-01-21 20:00] VITALS: BP 150/82; PULSE 77; RESP 16; TEMP 36.2; O2SAT 100
[2024-01-21 21:49] LABS: Glucose, Whole Blood 213 mg/dL (60-115)
[2024-01-21 21:58] VITALS: BP 150/82; PULSE 77
[2024-01-21] MEDS: OLANZapine 7.5 MG TABLET PO (21:58)
[2024-01-21] MEDS: risperiDONE 2 MG TABLET PO (21:58)
[2024-01-21] MEDS: Divalproex Sodium ER 500 MG TAB.ER.24H 2000 MG PO (21:59)
[2024-01-21] MEDS: Lithium Carbonate ER 300 MG TABLET.ER PO (21:59)
[2024-01-21] MEDS: Insulin Glargine,Hum.rec.anlog 100 UNIT/ML 10 ML VIAL 30 UNIT SUBCUT (22:02)
[2024-01-21] MEDS: traZODone HCL 50 MG TABLET PO (23:39)
[2024-01-22] MEDS: traZODone HCL 50 MG TABLET PO ×2 (00:50→20:26)
[2024-01-22 08:00] VITALS: BP 153/69; PULSE 62; RESP 18; TEMP 36.4; O2SAT 98
[2024-01-22 08:33] LABS: Glucose, Whole Blood 131 mg/dL (60-115)
[2024-01-22 09:11] VITALS: BP 153/69; PULSE 62
[2024-01-22] MEDS: Propranolol HCL 40 MG TABLET 80 MG PO ×3 (09:11→20:26)
[2024-01-22] MEDS: Lithium Carbonate 300 MG TABLET 150 MG PO (09:12)
[2024-01-22 09:13] VITALS: BP 153/69
[2024-01-22] MEDS: Insulin Glargine,Hum.rec.anlog 100 UNIT/ML 10 ML VIAL 20 UNIT SUBCUT (09:13)
[2024-01-22] MEDS: lisinopriL 10 MG TABLET PO (09:13)
[2024-01-22] MEDS: Magnesium Oxide 400 MG TABLET PO (09:13)
[2024-01-22] MEDS: Levothyroxine Sodium 125 MCG TABLET PO (10:55)
[2024-01-22 13:11] LABS: Glucose, Whole Blood 250 mg/dL (60-115)
[2024-01-22] MEDS: Insulin Lispro 100 UNIT/ML 3 ML VIAL SUBCUT ×2 (13:30→18:22)
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
[2024-01-22 15:55] VITALS: BP 135/73; PULSE 65
[2024-01-22 17:47] LABS: Glucose, Whole Blood 187 mg/dL (60-115)
[2024-01-22 20:20] VITALS: BP 140/63; PULSE 72; RESP 16; TEMP 36.6; O2SAT 96
[2024-01-22] MEDS: OLANZapine 7.5 MG TABLET PO (20:26)
[2024-01-22] MEDS: risperiDONE 2 MG TABLET PO (20:26)
[2024-01-22] MEDS: Lithium Carbonate ER 300 MG TABLET.ER PO (20:26)
[2024-01-22] MEDS: hydrOXYzine HCL 25 MG TABLET PO (20:26)
[2024-01-22] MEDS: Divalproex Sodium ER 500 MG TAB.ER.24H 2000 MG PO (20:26)
[2024-01-22] MEDS: Insulin Glargine,Hum.rec.anlog 100 UNIT/ML 10 ML VIAL 30 UNIT SUBCUT (20:27)
[2024-01-22 20:44] LABS: Glucose, Whole Blood 219 mg/dL (60-115)
[2024-01-23] MEDS: Levothyroxine Sodium 125 MCG TABLET PO (06:31)
[2024-01-23 08:43] LABS: Glucose, Whole Blood 184 mg/dL (60-115)
[2024-01-23 09:06] VITALS: BP 134/63; PULSE 66; RESP 18; TEMP 36.5; O2SAT 95
[2024-01-23] MEDS: Insulin Glargine,Hum.rec.anlog 100 UNIT/ML 10 ML VIAL 20 UNIT SUBCUT (09:07)
[2024-01-23] MEDS: Insulin Lispro 100 UNIT/ML 3 ML VIAL SUBCUT ×3 (09:09→18:06)
[2024-01-23] MEDS: Magnesium Oxide 400 MG TABLET PO (09:10)
[2024-01-23] MEDS: Lithium Carbonate 300 MG TABLET 150 MG PO (09:10)
[2024-01-23] MEDS: lisinopriL 10 MG TABLET PO (09:10)
[2024-01-23] MEDS: Propranolol HCL 40 MG TABLET 80 MG PO ×3 (09:10→20:52)
[2024-01-23 12:48] LABS: Glucose, Whole Blood 153 mg/dL (60-115)
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
[2024-01-23 15:45] VITALS: BP 144/64; PULSE 62
[2024-01-23 17:47] LABS: Glucose, Whole Blood 155 mg/dL (60-115)
[2024-01-23 20:45] VITALS: RESP 16; TEMP 36.4; O2SAT 96
[2024-01-23 20:45] LABS: Glucose, Whole Blood 185 mg/dL (60-115)
[2024-01-23] MEDS: hydrOXYzine HCL 25 MG TABLET PO (20:51)
[2024-01-23] MEDS: Divalproex Sodium ER 500 MG TAB.ER.24H 2000 MG PO (20:51)
[2024-01-23] MEDS: Insulin Glargine,Hum.rec.anlog 100 UNIT/ML 10 ML VIAL 30 UNIT SUBCUT (20:51)
[2024-01-23 20:52] VITALS: BP 142/80; PULSE 88
[2024-01-23] MEDS: OLANZapine 7.5 MG TABLET PO (20:52)
[2024-01-23] MEDS: traZODone HCL 50 MG TABLET PO (20:52)
[2024-01-23] MEDS: Lithium Carbonate ER 300 MG TABLET.ER PO (20:52)
[2024-01-23] MEDS: risperiDONE 2 MG TABLET PO (20:52)
[2024-01-24] MEDS: Levothyroxine Sodium 125 MCG TABLET PO (05:59)
[2024-01-24 07:50] VITALS: BP 135/71; PULSE 68; RESP 16; TEMP 36.4; O2SAT 95
[2024-01-24 08:46] LABS: Glucose, Whole Blood 142 mg/dL (60-115)
[2024-01-24 09:00] VITALS: BP 135/71
[2024-01-24] MEDS: lisinopriL 10 MG TABLET PO (09:00)
[2024-01-24] MEDS: Magnesium Oxide 400 MG TABLET PO (09:00)
[2024-01-24] MEDS: Lithium Carbonate 300 MG TABLET 150 MG PO (09:00)
[2024-01-24 09:02] VITALS: BP 135/71; PULSE 68
[2024-01-24] MEDS: Propranolol HCL 40 MG TABLET 80 MG PO ×3 (09:02→21:10)
[2024-01-24] MEDS: Insulin Lispro 100 UNIT/ML 3 ML VIAL SUBCUT ×3 (09:02→18:13)
[2024-01-24] MEDS: Insulin Glargine,Hum.rec.anlog 100 UNIT/ML 10 ML VIAL 20 UNIT SUBCUT (09:03)
[2024-01-24 12:01] LABS: Glucose, Whole Blood 220 mg/dL (60-115)
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
[2024-01-24 15:10] VITALS: BP 130/60; PULSE 71; RESP 20; TEMP 36.4; O2SAT 98
[2024-01-24 17:49] LABS: Glucose, Whole Blood 171 mg/dL (60-115)
[2024-01-24] MEDS: Acetaminophen 325 MG TABLET 650 MG PO (19:11)
[2024-01-24 20:00] VITALS: BP 118/60; PULSE 72; RESP 16; TEMP 36.3; O2SAT 97
[2024-01-24] MEDS: Insulin Glargine,Hum.rec.anlog 100 UNIT/ML 10 ML VIAL 30 UNIT SUBCUT (21:06)
[2024-01-24] MEDS: Lithium Carbonate ER 300 MG TABLET.ER PO (21:07)
[2024-01-24] MEDS: Divalproex Sodium ER 500 MG TAB.ER.24H 2000 MG PO (21:08)
[2024-01-24] MEDS: OLANZapine 7.5 MG TABLET PO (21:09)
[2024-01-24] MEDS: risperiDONE 2 MG TABLET PO (21:10)
[2024-01-25 00:16] LABS: Glucose, Whole Blood 302 mg/dL (60-115)
[2024-01-25] MEDS: Levothyroxine Sodium 125 MCG TABLET PO (05:00)
[2024-01-25 07:00] VITALS: BMI 40.5
[2024-01-25 08:45] LABS: Glucose, Whole Blood 113 mg/dL (60-115)
[2024-01-25] MEDS: Magnesium Oxide 400 MG TABLET PO (08:47)
[2024-01-25] MEDS: Lithium Carbonate 300 MG TABLET 150 MG PO (08:47)
[2024-01-25 08:55] VITALS: BP 173/83; PULSE 78; RESP 18; TEMP 36.5; O2SAT 96
[2024-01-25] MEDS: Propranolol HCL 40 MG TABLET 80 MG PO ×3 (08:55→20:30)
[2024-01-25] MEDS: lisinopriL 10 MG TABLET PO (08:55)
[2024-01-25] MEDS: Insulin Lispro 100 UNIT/ML 3 ML VIAL SUBCUT ×3 (09:04→17:54)
[2024-01-25] MEDS: Insulin Glargine,Hum.rec.anlog 100 UNIT/ML 10 ML VIAL 20 UNIT SUBCUT (09:04)
[2024-01-25 13:06] LABS: Glucose, Whole Blood 187 mg/dL (60-115)
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
[2024-01-25 16:46] VITALS: BP 125/58; PULSE 75
[2024-01-25 17:55] LABS: Glucose, Whole Blood 208 mg/dL (60-115)
[2024-01-25] MEDS: Acetaminophen 325 MG TABLET 650 MG PO (19:46)
[2024-01-25 20:00] VITALS: BP 134/80; PULSE 82; RESP 18; TEMP 36.3; O2SAT 96
[2024-01-25] MEDS: Divalproex Sodium ER 500 MG TAB.ER.24H 2000 MG PO (20:27)
[2024-01-25] MEDS: Insulin Glargine,Hum.rec.anlog 100 UNIT/ML 10 ML VIAL 30 UNIT SUBCUT (20:28)
[2024-01-25] MEDS: risperiDONE 2 MG TABLET PO (20:30)
[2024-01-25] MEDS: Lithium Carbonate ER 300 MG TABLET.ER PO (20:31)
[2024-01-25] MEDS: OLANZapine 7.5 MG TABLET PO (20:31)
[2024-01-25] MEDS: Lidocaine 4 % Patch ADH..PATCH 1 PATCH TRANSDERMA (20:56)
[2024-01-25 21:10] LABS: Glucose, Whole Blood 188 mg/dL (60-115)
[2024-01-26] MEDS: Levothyroxine Sodium 125 MCG TABLET PO (06:30)
[2024-01-26 08:25] VITALS: BP 106/53; PULSE 69; RESP 14; TEMP 36.4; O2SAT 98
[2024-01-26] MEDS: lisinopriL 10 MG TABLET PO (09:17)
[2024-01-26] MEDS: Lithium Carbonate 300 MG TABLET 150 MG PO (09:17)
[2024-01-26] MEDS: Magnesium Oxide 400 MG TABLET PO (09:18)
[2024-01-26] MEDS: Propranolol HCL 40 MG TABLET 80 MG PO ×3 (09:18→20:52)
[2024-01-26] MEDS: Insulin Glargine,Hum.rec.anlog 100 UNIT/ML 10 ML VIAL 20 UNIT SUBCUT (09:19)
[2024-01-26] MEDS: Insulin Lispro 100 UNIT/ML 3 ML VIAL SUBCUT ×3 (09:20→18:02)
[2024-01-26 11:32] LABS: Glucose, Whole Blood 177 mg/dL (60-115)
[2024-01-26 12:42] LABS: Glucose, Whole Blood 259 mg/dL (60-115)
[2024-01-26 15:56] VITALS: BP 132/61; PULSE 75
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
[2024-01-26 17:49] LABS: Glucose, Whole Blood 246 mg/dL (60-115)
[2024-01-26 19:55] VITALS: BP 133/67; PULSE 80; RESP 18; TEMP 36.3; O2SAT 96
[2024-01-26] MEDS: Divalproex Sodium ER 500 MG TAB.ER.24H 2000 MG PO (20:52)
[2024-01-26] MEDS: Lithium Carbonate ER 300 MG TABLET.ER PO (20:53)
[2024-01-26] MEDS: risperiDONE 2 MG TABLET PO (20:53)
[2024-01-26] MEDS: OLANZapine 7.5 MG TABLET PO (20:53)
[2024-01-26] MEDS: Insulin Glargine,Hum.rec.anlog 100 UNIT/ML 10 ML VIAL 30 UNIT SUBCUT (20:54)
[2024-01-26 21:00] LABS: Glucose, Whole Blood 275 mg/dL (60-115)
[2024-01-27] MEDS: Levothyroxine Sodium 125 MCG TABLET PO (07:03)
[2024-01-27 08:44] LABS: Glucose, Whole Blood 161 mg/dL (60-115)
[2024-01-27] MEDS: Insulin Glargine,Hum.rec.anlog 100 UNIT/ML 10 ML VIAL 20 UNIT SUBCUT (09:02)
[2024-01-27] MEDS: Insulin Lispro 100 UNIT/ML 3 ML VIAL SUBCUT ×3 (09:04→18:24)
[2024-01-27 09:05] VITALS: BP 141/63; PULSE 73; RESP 18; TEMP 36.5; O2SAT 97
[2024-01-27 09:06] VITALS: BP 141/63; PULSE 73
[2024-01-27] MEDS: lisinopriL 10 MG TABLET PO (09:06)
[2024-01-27] MEDS: Propranolol HCL 40 MG TABLET 80 MG PO ×3 (09:06→21:52)
[2024-01-27] MEDS: Magnesium Oxide 400 MG TABLET PO (09:06)
[2024-01-27] MEDS: Lithium Carbonate 300 MG TABLET 150 MG PO (09:07)
[2024-01-27 13:08] LABS: Glucose, Whole Blood 213 mg/dL (60-115)
[2024-01-27 14:43] VITALS: BP 112/55; PULSE 73
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
[2024-01-27 17:52] LABS: Glucose, Whole Blood 236 mg/dL (60-115)
[2024-01-27] MEDS: Acetaminophen 325 MG TABLET 650 MG PO (18:23)
[2024-01-27 21:48] VITALS: BP 162/73; PULSE 72; RESP 20; TEMP 36.4; O2SAT 98
[2024-01-27] MEDS: risperiDONE 2 MG TABLET PO (21:51)
[2024-01-27] MEDS: Divalproex Sodium ER 500 MG TAB.ER.24H 2000 MG PO (21:51)
[2024-01-27] MEDS: Insulin Glargine,Hum.rec.anlog 100 UNIT/ML 10 ML VIAL 30 UNIT SUBCUT (21:52)
[2024-01-27] MEDS: Lithium Carbonate ER 300 MG TABLET.ER PO (21:52)
[2024-01-27] MEDS: OLANZapine 7.5 MG TABLET PO (21:52)
[2024-01-27 22:02] LABS: Glucose, Whole Blood 247 mg/dL (60-115)
[2024-01-28] MEDS: Acetaminophen 325 MG TABLET 650 MG PO ×2 (03:41→15:07)
[2024-01-28 07:44] VITALS: BP 154/68; PULSE 69; RESP 14; TEMP 36.3; O2SAT 97
[2024-01-28 08:49] LABS: Glucose, Whole Blood 198 mg/dL (60-115)
[2024-01-28] MEDS: Propranolol HCL 40 MG TABLET 80 MG PO ×3 (09:16→21:16)
[2024-01-28] MEDS: Magnesium Oxide 400 MG TABLET PO (09:17)
[2024-01-28] MEDS: lisinopriL 10 MG TABLET PO (09:17)
[2024-01-28] MEDS: Levothyroxine Sodium 125 MCG TABLET PO (09:17)
[2024-01-28] MEDS: Lithium Carbonate 300 MG TABLET 150 MG PO (09:17)
[2024-01-28] MEDS: Insulin Glargine,Hum.rec.anlog 100 UNIT/ML 10 ML VIAL 20 UNIT SUBCUT (09:18)
[2024-01-28] MEDS: Insulin Lispro 100 UNIT/ML 3 ML VIAL SUBCUT ×3 (09:19→18:13)
[2024-01-28 13:02] LABS: Glucose, Whole Blood 209 mg/dL (60-115)
[2024-01-28 15:08] VITALS: BP 120/56; PULSE 77
[2024-01-28] MEDS: Cyclobenzaprine HCl 10 MG TABLET PO (15:12)
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
[2024-01-28 17:57] LABS: Glucose, Whole Blood 169 mg/dL (60-115)
[2024-01-28 20:00] VITALS: BP 133/60; PULSE 76; RESP 17; TEMP 36.5; O2SAT 98
[2024-01-28 21:15] VITALS: BP 154/77; PULSE 77
[2024-01-28] MEDS: Insulin Glargine,Hum.rec.anlog 100 UNIT/ML 10 ML VIAL 30 UNIT SUBCUT (21:16)
[2024-01-28] MEDS: risperiDONE 2 MG TABLET PO (21:16)
[2024-01-28] MEDS: traZODone HCL 50 MG TABLET PO (21:17)
[2024-01-28] MEDS: Divalproex Sodium ER 500 MG TAB.ER.24H 2000 MG PO (21:17)
[2024-01-28] MEDS: Lithium Carbonate ER 300 MG TABLET.ER PO (21:17)
[2024-01-28] MEDS: OLANZapine 5 MG TABLET PO (21:17)
[2024-01-28] MEDS: hydrOXYzine HCL 25 MG TABLET PO (21:17)
[2024-01-28 21:30] LABS: Glucose, Whole Blood 273 mg/dL (60-115)
[2024-01-29] MEDS: Cyclobenzaprine HCl 10 MG TABLET PO ×2 (00:57→21:54)
[2024-01-29] MEDS: traZODone HCL 50 MG TABLET PO ×2 (00:57→21:54)
[2024-01-29] MEDS: Levothyroxine Sodium 125 MCG TABLET PO (06:40)
[2024-01-29 07:45] VITALS: BP 137/62; PULSE 73; RESP 14; TEMP 36.6; O2SAT 96
[2024-01-29 08:52] LABS: Glucose, Whole Blood 170 mg/dL (60-115)
[2024-01-29 08:54] VITALS: BP 132/62; PULSE 73
[2024-01-29] MEDS: Propranolol HCL 40 MG TABLET 80 MG PO ×3 (08:54→21:53)
[2024-01-29] MEDS: Lithium Carbonate 300 MG TABLET 150 MG PO (08:54)
[2024-01-29 08:55] VITALS: BP 132/62
[2024-01-29] MEDS: lisinopriL 10 MG TABLET PO (08:55)
[2024-01-29] MEDS: Magnesium Oxide 400 MG TABLET PO (08:55)
[2024-01-29] MEDS: Insulin Glargine,Hum.rec.anlog 100 UNIT/ML 10 ML VIAL 20 UNIT SUBCUT (08:57)
[2024-01-29] MEDS: Insulin Lispro 100 UNIT/ML 3 ML VIAL SUBCUT ×3 (09:28→17:41)
[2024-01-29] MEDS: Insulin Glargine,Hum.rec.anlog 100 UNIT/ML 10 ML VIAL SUBCUT (12:24)
[2024-01-29 12:36] LABS: Glucose, Whole Blood 232 mg/dL (60-115)
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
[2024-01-29 15:16] VITALS: BP 127/68; PULSE 79
[2024-01-29 17:31] LABS: Glucose, Whole Blood 429 mg/dL (60-115)
--- NOTE | 2024-01-29 17:51 | PC.NURSE ---
Patient POC taken 172 results 429. Sliding scale coverage administered, Dr. Sunshine notified. No additional coverage at this time. stated ok follow blood sugars .
[2024-01-29 20:38] LABS: Glucose, Whole Blood 296 mg/dL (60-115)
[2024-01-29 21:30] VITALS: RESP 16; TEMP 36.4; O2SAT 98
[2024-01-29] MEDS: Insulin Glargine,Hum.rec.anlog 100 UNIT/ML 10 ML VIAL 30 UNIT SUBCUT (21:51)
[2024-01-29] MEDS: Divalproex Sodium ER 500 MG TAB.ER.24H 2000 MG PO (21:52)
[2024-01-29 21:53] VITALS: BP 144/69; PULSE 80
[2024-01-29] MEDS: Lithium Carbonate ER 300 MG TABLET.ER PO (21:53)
[2024-01-29] MEDS: risperiDONE 2 MG TABLET PO (21:54)
[2024-01-29] MEDS: hydrOXYzine HCL 25 MG TABLET PO (21:54)
[2024-01-29] MEDS: OLANZapine 5 MG TABLET PO (21:54)
[2024-01-29 22:02] LABS: Glucose, Whole Blood 276 mg/dL (60-115)
--- NOTE | 2024-01-29 22:06 | PC.NURSE ---
hospitalist notified of POC results
--- NOTE | 2024-01-29 22:49 | PC.NURSE ---
per hospitalist no new orders for HS POC results
[2024-01-30] MEDS: traZODone HCL 50 MG TABLET PO (02:29)
[2024-01-30] MEDS: hydrOXYzine HCL 25 MG TABLET PO (02:29)
[2024-01-30] MEDS: Levothyroxine Sodium 125 MCG TABLET PO (05:18)
[2024-01-30] MEDS: Acetaminophen 325 MG TABLET 650 MG PO ×3 (05:26→22:31)
[2024-01-30] MEDS: Cyclobenzaprine HCl 10 MG TABLET PO ×2 (05:27→22:32)
[2024-01-30 07:57] VITALS: BP 149/67; PULSE 82; RESP 16; TEMP 36.4; O2SAT 100
[2024-01-30 08:52] LABS: Glucose, Whole Blood 444 mg/dL (60-115)
[2024-01-30] MEDS: Lithium Carbonate 300 MG TABLET 150 MG PO (09:21)
[2024-01-30 09:22] VITALS: BP 149/67; PULSE 82
[2024-01-30] MEDS: Insulin Lispro 100 UNIT/ML 3 ML VIAL SUBCUT ×3 (09:22→17:56)
[2024-01-30] MEDS: Propranolol HCL 40 MG TABLET 80 MG PO ×3 (09:22→22:19)
[2024-01-30] MEDS: lisinopriL 10 MG TABLET PO (09:22)
[2024-01-30] MEDS: Magnesium Oxide 400 MG TABLET PO (09:22)
[2024-01-30] MEDS: Insulin Glargine,Hum.rec.anlog 100 UNIT/ML 10 ML VIAL 25 UNIT SUBCUT (09:42)
[2024-01-30] MEDS: Insulin Lispro 100 UNIT/ML 3 ML VIAL 10 UNIT SUBCUT (10:07)
--- NOTE | 2024-01-30 10:11 | PC.ADMIT ---
Patient AM POC 444. Sliding scale coverage administered. Dr. Paredes notified. Spoke to Sofia PABON 10 additional units administered as ordered.
[2024-01-30 12:57] LABS: Glucose, Whole Blood 249 mg/dL (60-115)
[2024-01-30 15:44] VITALS: BP 118/56; PULSE 69
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
[2024-01-30 17:43] LABS: Glucose, Whole Blood 236 mg/dL (60-115)
[2024-01-30 20:00] VITALS: BP 135/60; PULSE 64; RESP 16; TEMP 36.3; O2SAT 96
[2024-01-30 20:51] LABS: Glucose, Whole Blood 204 mg/dL (60-115)
[2024-01-30] MEDS: Insulin Glargine,Hum.rec.anlog 100 UNIT/ML 10 ML VIAL 30 UNIT SUBCUT (22:18)
[2024-01-30 22:19] VITALS: BP 142/66; PULSE 64
[2024-01-30] MEDS: Lithium Carbonate ER 300 MG TABLET.ER PO (22:19)
[2024-01-30] MEDS: Divalproex Sodium ER 500 MG TAB.ER.24H 2000 MG PO (22:19)
[2024-01-30] MEDS: OLANZapine 5 MG TABLET PO (22:20)
[2024-01-30] MEDS: risperiDONE 2 MG TABLET PO (22:21)
[2024-01-31] MEDS: Levothyroxine Sodium 125 MCG TABLET PO (06:41)
[2024-01-31 07:47] VITALS: BP 138/80; PULSE 72; RESP 16; TEMP 36.3; O2SAT 98
[2024-01-31 08:34] LABS: Glucose, Whole Blood 235 mg/dL (60-115)
[2024-01-31] MEDS: Lithium Carbonate 300 MG TABLET 150 MG PO (08:44)
[2024-01-31] MEDS: lisinopriL 10 MG TABLET PO (08:44)
[2024-01-31] MEDS: Magnesium Oxide 400 MG TABLET PO (08:44)
[2024-01-31] MEDS: Propranolol HCL 40 MG TABLET 80 MG PO ×3 (08:44→22:09)
[2024-01-31] MEDS: Insulin Glargine,Hum.rec.anlog 100 UNIT/ML 10 ML VIAL 25 UNIT SUBCUT (08:47)
[2024-01-31] MEDS: Insulin Lispro 100 UNIT/ML 3 ML VIAL SUBCUT ×3 (08:48→17:48)
[2024-01-31 12:50] LABS: Glucose, Whole Blood 197 mg/dL (60-115)
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
[2024-01-31 15:33] VITALS: BP 149/65; PULSE 84; RESP 16
[2024-01-31 17:46] LABS: Glucose, Whole Blood 281 mg/dL (60-115)
[2024-01-31 21:40] VITALS: BP 120/54; PULSE 74; RESP 16; TEMP 36.3; O2SAT 97
[2024-01-31 21:55] LABS: Glucose, Whole Blood 195 mg/dL (60-115)
[2024-01-31] MEDS: Lithium Carbonate ER 300 MG TABLET.ER PO (22:08)
[2024-01-31] MEDS: risperiDONE 2 MG TABLET PO (22:09)
[2024-01-31] MEDS: OLANZapine 5 MG TABLET PO (22:09)
[2024-01-31] MEDS: traZODone HCL 50 MG TABLET PO (22:09)
[2024-01-31] MEDS: Divalproex Sodium ER 500 MG TAB.ER.24H 2000 MG PO (22:10)
[2024-01-31] MEDS: Insulin Glargine,Hum.rec.anlog 100 UNIT/ML 10 ML VIAL 30 UNIT SUBCUT (22:13)
[2024-01-31] MEDS: Acetaminophen 325 MG TABLET 650 MG PO (22:17)
[2024-02-01 07:00] VITALS: BMI 41.2
[2024-02-01 08:30] LABS: Glucose, Whole Blood 186 mg/dL (60-115)
[2024-02-01 08:49] VITALS: BP 123/57; PULSE 63; RESP 16; TEMP 36.4; O2SAT 97
[2024-02-01] MEDS: Magnesium Oxide 400 MG TABLET PO (08:51)
[2024-02-01] MEDS: Lithium Carbonate 300 MG TABLET 150 MG PO (08:51)
[2024-02-01] MEDS: lisinopriL 10 MG TABLET PO (08:51)
[2024-02-01] MEDS: Propranolol HCL 40 MG TABLET 80 MG PO ×3 (08:52→20:35)
[2024-02-01] MEDS: Levothyroxine Sodium 125 MCG TABLET PO (08:52)
[2024-02-01] MEDS: Insulin Lispro 100 UNIT/ML 3 ML VIAL SUBCUT ×3 (08:54→17:46)
[2024-02-01] MEDS: Insulin Glargine,Hum.rec.anlog 100 UNIT/ML 10 ML VIAL 25 UNIT SUBCUT (08:55)
[2024-02-01] MEDS: Acetaminophen 325 MG TABLET 650 MG PO (09:24)
[2024-02-01 12:35] LABS: Glucose, Whole Blood 125 mg/dL (60-115)
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
[2024-02-01 15:30] VITALS: BP 118/54; PULSE 69; RESP 14
[2024-02-01 17:40] LABS: Glucose, Whole Blood 248 mg/dL (60-115)
[2024-02-01 20:25] VITALS: BP 127/81; PULSE 83; RESP 16; TEMP 36.7; O2SAT 97
[2024-02-01 20:31] LABS: Glucose, Whole Blood 328 mg/dL (60-115)
[2024-02-01] MEDS: Insulin Glargine,Hum.rec.anlog 100 UNIT/ML 10 ML VIAL 30 UNIT SUBCUT (20:34)
[2024-02-01] MEDS: OLANZapine 5 MG TABLET PO (20:35)
[2024-02-01] MEDS: risperiDONE 2 MG TABLET PO (20:35)
[2024-02-01] MEDS: Divalproex Sodium ER 500 MG TAB.ER.24H 2000 MG PO (20:35)
[2024-02-01] MEDS: Lithium Carbonate ER 300 MG TABLET.ER PO (20:35)
[2024-02-01] MEDS: traZODone HCL 50 MG TABLET PO (20:35)
[2024-02-01] MEDS: Lidocaine 4 % Patch ADH..PATCH 1 PATCH TRANSDERMA (22:11)
[2024-02-01] MEDS: Benztropine Mesylate 0.5 MG TABLET PO (22:11)
--- NOTE | 2024-02-01 22:38 | HO.EVEPSY2_ITS ---
Documented by User: Whitney Kent APRN 02/01/24 22:41 Event Note Date of Service: 02/01/24 Psych On-Call Event Note: Team report pt with right and left hand tremor (right being prominent), involuntary mvts of mouth and reports of lower back pain. Benztropine trial 0.5 mg bid ordered along with [place] level and Lidocaine patch. Time Spent With Patient Time: Total time managing care of this patient today ____ minutes. Documented by User: Jan Hernandez MD 02/01/24 22:51 Event Note Date of Service: 02/01/24
[2024-02-02 07:45] VITALS: BP 115/57; PULSE 67; RESP 16; TEMP 36.4; O2SAT 96
[2024-02-02 08:44] LABS: Glucose, Whole Blood 171 mg/dL (60-115)
[2024-02-02 09:04] LABS: Lithium 0.48 mmol/L (0.60-1.20)
[2024-02-02] MEDS: Insulin Glargine,Hum.rec.anlog 100 UNIT/ML 10 ML VIAL 25 UNIT SUBCUT (09:19)
[2024-02-02] MEDS: Magnesium Oxide 400 MG TABLET PO (09:21)
[2024-02-02] MEDS: Insulin Lispro 100 UNIT/ML 3 ML VIAL SUBCUT ×3 (09:21→17:53)
[2024-02-02] MEDS: Lithium Carbonate 300 MG TABLET 150 MG PO (09:21)
[2024-02-02 09:22] VITALS: BP 102/58
[2024-02-02] MEDS: lisinopriL 10 MG TABLET PO (09:22)
[2024-02-02] MEDS: Benztropine Mesylate 0.5 MG TABLET PO ×2 (09:22→19:50)
[2024-02-02] MEDS: Levothyroxine Sodium 125 MCG TABLET PO (09:22)
[2024-02-02] MEDS: Acetaminophen 325 MG TABLET 650 MG PO (09:22)
[2024-02-02 09:23] VITALS: BP 102/58; PULSE 85
[2024-02-02] MEDS: Propranolol HCL 40 MG TABLET 80 MG PO ×2 (09:23→15:05)
[2024-02-02] MEDS: Lidocaine 4 % Patch ADH..PATCH 1 PATCH TRANSDERMA (09:24)
[2024-02-02 12:57] LABS: Glucose, Whole Blood 325 mg/dL (60-115)
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
[2024-02-02 15:05] VITALS: BP 115/58; PULSE 70
[2024-02-02 17:42] LABS: Glucose, Whole Blood 179 mg/dL (60-115)
[2024-02-02 19:37] LABS: Glucose, Whole Blood 257 mg/dL (60-115)
[2024-02-02] MEDS: Insulin Glargine,Hum.rec.anlog 100 UNIT/ML 10 ML VIAL 30 UNIT SUBCUT (19:48)
[2024-02-02] MEDS: traZODone HCL 50 MG TABLET PO (19:49)
[2024-02-02] MEDS: Divalproex Sodium ER 500 MG TAB.ER.24H 2000 MG PO (19:49)
[2024-02-02] MEDS: Lithium Carbonate ER 300 MG TABLET.ER PO (19:49)
[2024-02-02] MEDS: OLANZapine 5 MG TABLET PO (19:49)
[2024-02-02] MEDS: risperiDONE 2 MG TABLET PO (19:51)
[2024-02-02 20:00] VITALS: BP 102/56; PULSE 82; RESP 17; TEMP 36.4; O2SAT 96
[2024-02-03] MEDS: hydrOXYzine HCL 25 MG TABLET PO ×2 (00:55→20:54)
[2024-02-03] MEDS: traZODone HCL 50 MG TABLET PO ×2 (00:55→20:54)
[2024-02-03] MEDS: OLANZapine 5 MG TABLET PO ×2 (00:55→20:53)
[2024-02-03 01:42] VITALS: BP 102/56
[2024-02-03] MEDS: Levothyroxine Sodium 125 MCG TABLET PO (06:30)
[2024-02-03 07:40] VITALS: BP 121/61; PULSE 77; RESP 14; TEMP 36.4; O2SAT 98
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
[2024-02-03 08:52] LABS: Glucose, Whole Blood 329 mg/dL (60-115)
[2024-02-03] MEDS: Propranolol HCL 40 MG TABLET 80 MG PO ×3 (09:00→20:53)
[2024-02-03] MEDS: Magnesium Oxide 400 MG TABLET PO (09:00)
[2024-02-03] MEDS: Lithium Carbonate 300 MG TABLET 150 MG PO (09:00)
[2024-02-03] MEDS: Benztropine Mesylate 0.5 MG TABLET PO ×2 (09:00→20:54)
[2024-02-03] MEDS: lisinopriL 10 MG TABLET PO (09:01)
[2024-02-03] MEDS: Insulin Lispro 100 UNIT/ML 3 ML VIAL SUBCUT ×3 (09:01→18:00)
[2024-02-03] MEDS: Insulin Glargine,Hum.rec.anlog 100 UNIT/ML 10 ML VIAL 25 UNIT SUBCUT (09:02)
[2024-02-03] MEDS: Lidocaine 4 % Patch ADH..PATCH 1 PATCH TRANSDERMA (09:03)
[2024-02-03 13:07] LABS: Glucose, Whole Blood 300 mg/dL (60-115)
[2024-02-03 15:21] VITALS: BP 133/69; PULSE 87
[2024-02-03 17:55] LABS: Glucose, Whole Blood 328 mg/dL (60-115)
[2024-02-03] MEDS: Magnesium Hydrox/Alum Hydrox 30 ML ORAL.SUSP PO (18:18)
[2024-02-03 19:58] VITALS: BP 151/77; PULSE 84; RESP 16; TEMP 36.8; O2SAT 96
[2024-02-03 20:21] LABS: Glucose, Whole Blood 328 mg/dL (60-115)
[2024-02-03] MEDS: Divalproex Sodium ER 500 MG TAB.ER.24H 2000 MG PO (20:53)
[2024-02-03] MEDS: Lithium Carbonate ER 300 MG TABLET.ER PO (20:53)
[2024-02-03] MEDS: Insulin Glargine,Hum.rec.anlog 100 UNIT/ML 10 ML VIAL 30 UNIT SUBCUT (20:53)
[2024-02-03] MEDS: risperiDONE 2 MG TABLET PO (20:54)
[2024-02-03] MEDS: Acetaminophen 325 MG TABLET 650 MG PO (23:16)
[2024-02-04] MEDS: Levothyroxine Sodium 125 MCG TABLET PO (06:34)
[2024-02-04 07:25] VITALS: BP 138/62; PULSE 75; RESP 16; TEMP 36.4; O2SAT 97
[2024-02-04 08:45] LABS: Glucose, Whole Blood 219 mg/dL (60-115)
[2024-02-04 09:17] VITALS: BP 138/62; PULSE 75
[2024-02-04] MEDS: Lithium Carbonate 300 MG TABLET 150 MG PO (09:17)
[2024-02-04] MEDS: Propranolol HCL 40 MG TABLET 80 MG PO ×3 (09:17→21:26)
[2024-02-04 09:18] VITALS: BP 138/62
[2024-02-04] MEDS: lisinopriL 10 MG TABLET PO (09:18)
[2024-02-04] MEDS: Insulin Glargine,Hum.rec.anlog 100 UNIT/ML 10 ML VIAL 25 UNIT SUBCUT (09:19)
[2024-02-04] MEDS: Magnesium Oxide 400 MG TABLET PO (09:19)
[2024-02-04] MEDS: Benztropine Mesylate 0.5 MG TABLET PO ×2 (09:19→21:26)
[2024-02-04] MEDS: Insulin Lispro 100 UNIT/ML 3 ML VIAL SUBCUT ×3 (09:19→18:12)
[2024-02-04] MEDS: Lidocaine 4 % Patch ADH..PATCH 1 PATCH TRANSDERMA (09:21)
[2024-02-04] MEDS: Acetaminophen 325 MG TABLET 650 MG PO (12:15)
[2024-02-04 12:57] LABS: Glucose, Whole Blood 313 mg/dL (60-115)
[2024-02-04] MEDS: Insulin Glargine,Hum.rec.anlog 100 UNIT/ML 10 ML VIAL SUBCUT (13:29)
[2024-02-04] MEDS: Magnesium Hydrox/Alum Hydrox 30 ML ORAL.SUSP PO (13:59)
[2024-02-04 15:14] VITALS: BP 134/61; PULSE 75
[2024-02-04 17:49] LABS: Glucose, Whole Blood 295 mg/dL (60-115)
[2024-02-04] MEDS: Calcium Carbonate 750 MG TAB.CHEW PO (18:58)
[2024-02-04 21:05] VITALS: BP 134/60; PULSE 80; RESP 18; TEMP 36.4; O2SAT 99
[2024-02-04] MEDS: Lithium Carbonate ER 300 MG TABLET.ER PO (21:26)
[2024-02-04] MEDS: Divalproex Sodium ER 500 MG TAB.ER.24H 2000 MG PO (21:26)
[2024-02-04] MEDS: risperiDONE 2 MG TABLET PO (21:26)
[2024-02-04] MEDS: OLANZapine 5 MG TABLET PO (21:26)
[2024-02-04] MEDS: traZODone HCL 50 MG TABLET PO (21:27)
[2024-02-04] MEDS: Insulin Glargine,Hum.rec.anlog 100 UNIT/ML 10 ML VIAL 30 UNIT SUBCUT (21:28)
[2024-02-04 22:17] LABS: Glucose, Whole Blood 298 mg/dL (60-115)
[2024-02-05] MEDS: traZODone HCL 50 MG TABLET PO ×2 (00:05→21:56)
[2024-02-05] MEDS: hydrOXYzine HCL 25 MG TABLET PO ×2 (00:05→21:57)
[2024-02-05] MEDS: Acetaminophen 325 MG TABLET 650 MG PO ×2 (02:09→14:39)
[2024-02-05] MEDS: Levothyroxine Sodium 125 MCG TABLET PO (06:19)
[2024-02-05 07:38] VITALS: BP 131/73; PULSE 73; RESP 18; TEMP 36.3; O2SAT 100
[2024-02-05 08:30] LABS: Glucose, Whole Blood 219 mg/dL (60-115)
[2024-02-05 08:35] VITALS: BP 131/73
[2024-02-05] MEDS: Benztropine Mesylate 0.5 MG TABLET PO ×2 (08:35→21:57)
[2024-02-05] MEDS: lisinopriL 10 MG TABLET PO (08:35)
[2024-02-05] MEDS: Propranolol HCL 40 MG TABLET 80 MG PO ×3 (08:36→21:57)
[2024-02-05] MEDS: Lithium Carbonate 300 MG TABLET 150 MG PO (08:37)
[2024-02-05] MEDS: Magnesium Oxide 400 MG TABLET PO (08:37)
[2024-02-05] MEDS: Insulin Glargine,Hum.rec.anlog 100 UNIT/ML 10 ML VIAL 30 UNIT SUBCUT ×2 (08:40→22:04)
[2024-02-05] MEDS: Insulin Lispro 100 UNIT/ML 3 ML VIAL SUBCUT ×3 (08:40→18:19)
[2024-02-05] MEDS: Lidocaine 4 % Patch ADH..PATCH 1 PATCH TRANSDERMA (09:37)
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
[2024-02-05 12:41] LABS: Glucose, Whole Blood 266 mg/dL (60-115)
[2024-02-05 14:37] VITALS: BP 122/60; PULSE 80
[2024-02-05] MEDS: Magnesium Hydrox/Alum Hydrox 30 ML ORAL.SUSP PO (15:39)
[2024-02-05 17:31] LABS: Glucose, Whole Blood 362 mg/dL (60-115)
[2024-02-05 18:15] LABS: Glucose, Whole Blood 282 mg/dL (60-115)
[2024-02-05 21:28] VITALS: BP 126/58; PULSE 72; RESP 18; TEMP 36.4; O2SAT 96
[2024-02-05 21:34] LABS: Glucose, Whole Blood 242 mg/dL (60-115)
[2024-02-05] MEDS: Lithium Carbonate ER 300 MG TABLET.ER PO (21:56)
[2024-02-05] MEDS: OLANZapine 5 MG TABLET PO (21:56)
[2024-02-05] MEDS: risperiDONE 2 MG TABLET PO (21:57)
[2024-02-05] MEDS: Divalproex Sodium ER 500 MG TAB.ER.24H 2000 MG PO (21:58)
[2024-02-06 07:27] VITALS: BP 128/59; PULSE 78; RESP 18; TEMP 36.4; O2SAT 99
[2024-02-06] MEDS: Levothyroxine Sodium 125 MCG TABLET PO (08:39)
[2024-02-06] MEDS: Lithium Carbonate 300 MG TABLET 150 MG PO (08:39)
[2024-02-06] MEDS: Magnesium Oxide 400 MG TABLET PO (08:39)
[2024-02-06] MEDS: Benztropine Mesylate 0.5 MG TABLET PO ×2 (08:39→21:55)
[2024-02-06 08:40] VITALS: BP 128/59; PULSE 78
[2024-02-06] MEDS: Propranolol HCL 40 MG TABLET 80 MG PO ×3 (08:40→21:54)
[2024-02-06] MEDS: lisinopriL 10 MG TABLET PO (08:40)
[2024-02-06] MEDS: Lidocaine 4 % Patch ADH..PATCH 1 PATCH TRANSDERMA (08:41)
[2024-02-06 09:05] LABS: Glucose, Whole Blood 418 mg/dL (60-115)
--- NOTE | 2024-02-06 09:16 | PM.EVENT ---
Event Note Date of Service: 02/06/24 Event Note: poorly control dm d/t non-compliant with diet and snacks increase lantus from 30 to 35 bid and continue to advise against regular diet and sugarly snacks Time Spent With Patient Time: Total time managing care of this patient today ____ minutes.
[2024-02-06] MEDS: Insulin Lispro 100 UNIT/ML 3 ML VIAL 6 UNIT SUBCUT (09:31)
[2024-02-06] MEDS: Insulin Glargine,Hum.rec.anlog 100 UNIT/ML 10 ML VIAL 35 UNIT SUBCUT ×2 (09:32→21:53)
[2024-02-06] MEDS: Insulin Lispro 100 UNIT/ML 3 ML VIAL SUBCUT ×3 (09:33→18:38)
[2024-02-06 10:36] LABS: Estimated Average Glucose 220 mg/dL; Hemoglobin A1C 262.7712 umol/L; Hemoglobin A1c % 9.3 % (<6.0); Total Hemoglobin (HGBA1C) 3347.7621 umol/L
[2024-02-06 10:54] LABS: Anion Gap 13 (12-20); Blood Urea Nitrogen 8 mg/dL (9-16); Calcium 9.2 mg/dL (8.4-10.2); Carbon Dioxide 26 mmol/L (22-29); Chloride 98 mmol/L (96-108); Creatinine Clr Calc Pharmacy 69.3; Estimated Glomerular Filt Rate > 60; Glucose Random 402 mg/dL (60-115); Potassium 5.2 mmol/L (3.3-5.1); Sodium 132 mmol/L (135-145)
[2024-02-06] MEDS: Acetaminophen 325 MG TABLET 650 MG PO ×2 (11:38→17:08)
[2024-02-06 12:42] LABS: Glucose, Whole Blood 225 mg/dL (60-115)
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
[2024-02-06 14:27] VITALS: BP 145/68; PULSE 79
[2024-02-06] MEDS: Benzocaine 20 % Oral Gel 9 GM TUBE 1 APPL MUCOUS MEM (14:28)
[2024-02-06 17:48] LABS: Glucose, Whole Blood 297 mg/dL (60-115)
[2024-02-06 21:09] LABS: Glucose, Whole Blood 286 mg/dL (60-115)
[2024-02-06] MEDS: Calcium Carbonate 750 MG TAB.CHEW PO (21:36)
[2024-02-06 21:45] VITALS: BP 110/64; PULSE 86; RESP 16; TEMP 36.6; O2SAT 95
[2024-02-06 21:54] VITALS: BP 110/64; PULSE 86
[2024-02-06] MEDS: OLANZapine 5 MG TABLET PO (21:54)
[2024-02-06] MEDS: Divalproex Sodium ER 500 MG TAB.ER.24H 2000 MG PO (21:54)
[2024-02-06] MEDS: Lithium Carbonate ER 300 MG TABLET.ER PO (21:55)
[2024-02-06] MEDS: traZODone HCL 50 MG TABLET PO (21:55)
[2024-02-06] MEDS: risperiDONE 2 MG TABLET PO (21:55)
[2024-02-06] MEDS: hydrOXYzine HCL 25 MG TABLET PO (21:55)
[2024-02-07] MEDS: Levothyroxine Sodium 125 MCG TABLET PO (05:39)
[2024-02-07 07:28] VITALS: BP 138/64; PULSE 72; RESP 18; TEMP 36.4; O2SAT 96
[2024-02-07] MEDS: Propranolol HCL 40 MG TABLET 80 MG PO ×3 (08:12→21:39)
[2024-02-07] MEDS: lisinopriL 10 MG TABLET PO (08:13)
[2024-02-07] MEDS: Lithium Carbonate 300 MG TABLET 150 MG PO (08:13)
[2024-02-07] MEDS: Magnesium Oxide 400 MG TABLET PO (08:13)
[2024-02-07] MEDS: Benztropine Mesylate 0.5 MG TABLET PO ×2 (08:14→21:39)
[2024-02-07 08:49] LABS: Glucose, Whole Blood 324 mg/dL (60-115)
[2024-02-07] MEDS: Lidocaine 4 % Patch ADH..PATCH 1 PATCH TRANSDERMA (09:05)
[2024-02-07] MEDS: Insulin Glargine,Hum.rec.anlog 100 UNIT/ML 10 ML VIAL 35 UNIT SUBCUT ×2 (09:07→21:36)
[2024-02-07] MEDS: Insulin Lispro 100 UNIT/ML 3 ML VIAL SUBCUT ×3 (09:08→18:06)
[2024-02-07] MEDS: Calcium Carbonate 750 MG TAB.CHEW PO (09:56)
[2024-02-07 12:57] LABS: Glucose, Whole Blood 304 mg/dL (60-115)
[2024-02-07 15:01] VITALS: BP 141/76; PULSE 86
[2024-02-07] MEDS: Acetaminophen 325 MG TABLET 650 MG PO (16:54)
[2024-02-07 17:57] LABS: Glucose, Whole Blood 347 mg/dL (60-115)
[2024-02-07 20:00] VITALS: BP 117/57; PULSE 83; RESP 14; TEMP 36.5; O2SAT 95
[2024-02-07 20:35] LABS: Glucose, Whole Blood 283 mg/dL (60-115)
[2024-02-07] MEDS: Divalproex Sodium ER 500 MG TAB.ER.24H 2000 MG PO (21:38)
[2024-02-07] MEDS: OLANZapine 5 MG TABLET PO (21:38)
[2024-02-07] MEDS: traZODone HCL 50 MG TABLET PO (21:39)
[2024-02-07] MEDS: risperiDONE 2 MG TABLET PO (21:39)
[2024-02-07] MEDS: hydrOXYzine HCL 25 MG TABLET PO (21:40)
[2024-02-07] MEDS: Lithium Carbonate ER 300 MG TABLET.ER PO (21:40)
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
[2024-02-08] MEDS: Levothyroxine Sodium 125 MCG TABLET PO (06:25)
[2024-02-08 07:00] VITALS: BMI 43.0
[2024-02-08 08:00] VITALS: BP 119/56; PULSE 73; RESP 16; TEMP 36.3; O2SAT 94
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
[2024-02-08 08:48] LABS: Glucose, Whole Blood 174 mg/dL (60-115)
[2024-02-08] MEDS: Lidocaine 4 % Patch ADH..PATCH 1 PATCH TRANSDERMA (09:02)
[2024-02-08 09:03] VITALS: BP 119/56
[2024-02-08] MEDS: Lithium Carbonate 300 MG TABLET 150 MG PO (09:03)
[2024-02-08] MEDS: lisinopriL 10 MG TABLET PO (09:03)
[2024-02-08 09:04] VITALS: BP 119/56; PULSE 73
[2024-02-08] MEDS: Magnesium Oxide 400 MG TABLET PO (09:04)
[2024-02-08] MEDS: Propranolol HCL 40 MG TABLET 80 MG PO ×3 (09:04→21:17)
[2024-02-08] MEDS: Benztropine Mesylate 0.5 MG TABLET PO ×2 (09:04→21:17)
[2024-02-08] MEDS: Insulin Glargine,Hum.rec.anlog 100 UNIT/ML 10 ML VIAL 35 UNIT SUBCUT ×2 (09:06→21:14)
[2024-02-08] MEDS: Insulin Lispro 100 UNIT/ML 3 ML VIAL SUBCUT ×3 (09:40→18:14)
[2024-02-08 12:53] LABS: Glucose, Whole Blood 317 mg/dL (60-115)
[2024-02-08 15:14] VITALS: BP 134/56; PULSE 88
[2024-02-08] MEDS: Calcium Carbonate 750 MG TAB.CHEW PO (15:47)
[2024-02-08 18:00] LABS: Glucose, Whole Blood 324 mg/dL (60-115)
[2024-02-08 20:00] VITALS: BP 122/68; PULSE 89; RESP 18; TEMP 36.3; O2SAT 97
[2024-02-08 20:55] LABS: Glucose, Whole Blood 291 mg/dL (60-115)
[2024-02-08] MEDS: Lithium Carbonate ER 300 MG TABLET.ER PO (21:16)
[2024-02-08] MEDS: Divalproex Sodium ER 500 MG TAB.ER.24H 2000 MG PO (21:16)
[2024-02-08] MEDS: OLANZapine 5 MG TABLET PO (21:17)
[2024-02-08] MEDS: hydrOXYzine HCL 25 MG TABLET PO (21:17)
[2024-02-08] MEDS: traZODone HCL 50 MG TABLET PO (21:18)
[2024-02-08] MEDS: risperiDONE 2 MG TABLET PO (21:18)
[2024-02-09] MEDS: Levothyroxine Sodium 125 MCG TABLET PO (06:17)
[2024-02-09 07:45] VITALS: BP 128/56; PULSE 74; RESP 14; TEMP 36.5; O2SAT 95
[2024-02-09] MEDS: Magnesium Oxide 400 MG TABLET PO (08:46)
[2024-02-09] MEDS: Lithium Carbonate 300 MG TABLET 150 MG PO (08:46)
[2024-02-09] MEDS: Benztropine Mesylate 0.5 MG TABLET PO ×2 (08:46→22:10)
[2024-02-09 08:47] VITALS: BP 123/66; PULSE 76
[2024-02-09] MEDS: Propranolol HCL 40 MG TABLET 80 MG PO ×3 (08:47→22:11)
[2024-02-09] MEDS: lisinopriL 10 MG TABLET PO (08:47)
[2024-02-09 09:01] LABS: Glucose, Whole Blood 209 mg/dL (60-115)
[2024-02-09] MEDS: Insulin Lispro 100 UNIT/ML 3 ML VIAL SUBCUT ×3 (09:35→18:18)
[2024-02-09] MEDS: Insulin Glargine,Hum.rec.anlog 100 UNIT/ML 10 ML VIAL 35 UNIT SUBCUT ×2 (09:36→22:15)
[2024-02-09 12:46] LABS: Glucose, Whole Blood 274 mg/dL (60-115)
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
[2024-02-09 16:02] VITALS: BP 128/61; PULSE 85
[2024-02-09] MEDS: Acetaminophen 325 MG TABLET 650 MG PO (17:04)
[2024-02-09 17:33] LABS: Glucose, Whole Blood 294 mg/dL (60-115)
[2024-02-09 21:44] VITALS: BP 122/61; PULSE 71; RESP 18; TEMP 36.5; O2SAT 96
[2024-02-09 21:50] LABS: Glucose, Whole Blood 223 mg/dL (60-115)
[2024-02-09] MEDS: OLANZapine 5 MG TABLET PO (22:10)
[2024-02-09] MEDS: Divalproex Sodium ER 500 MG TAB.ER.24H 2000 MG PO (22:10)
[2024-02-09] MEDS: Lithium Carbonate ER 300 MG TABLET.ER PO (22:10)
[2024-02-09] MEDS: risperiDONE 2 MG TABLET PO (22:11)
[2024-02-09] MEDS: traZODone HCL 50 MG TABLET PO (22:12)
[2024-02-09] MEDS: hydrOXYzine HCL 25 MG TABLET PO (22:12)
[2024-02-10] MEDS: Levothyroxine Sodium 125 MCG TABLET PO (07:35)
[2024-02-10 07:41] VITALS: BP 142/65; PULSE 72; RESP 16; TEMP 36.5; O2SAT 95
[2024-02-10 08:53] LABS: Glucose, Whole Blood 201 mg/dL (60-115)
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
[2024-02-10] MEDS: Insulin Lispro 100 UNIT/ML 3 ML VIAL SUBCUT ×3 (09:18→18:11)
[2024-02-10] MEDS: Insulin Glargine,Hum.rec.anlog 100 UNIT/ML 10 ML VIAL 35 UNIT SUBCUT ×2 (09:19→20:28)
[2024-02-10 09:20] VITALS: BP 142/65; PULSE 72
[2024-02-10] MEDS: Propranolol HCL 40 MG TABLET 80 MG PO ×3 (09:20→20:26)
[2024-02-10 09:22] VITALS: BP 142/65
[2024-02-10] MEDS: lisinopriL 10 MG TABLET PO (09:22)
[2024-02-10] MEDS: Magnesium Oxide 400 MG TABLET PO (09:22)
[2024-02-10] MEDS: Benztropine Mesylate 0.5 MG TABLET PO ×2 (09:23→20:25)
[2024-02-10] MEDS: Lithium Carbonate 300 MG TABLET 150 MG PO (09:27)
[2024-02-10 13:13] LABS: Glucose, Whole Blood 180 mg/dL (60-115)
[2024-02-10 14:16] VITALS: BP 139/64; PULSE 78
[2024-02-10 18:10] LABS: Glucose, Whole Blood 280 mg/dL (60-115)
[2024-02-10] MEDS: Benzocaine 20 % Oral Gel 9 GM TUBE 1 APPL MUCOUS MEM (20:09)
[2024-02-10] MEDS: Acetaminophen 325 MG TABLET 650 MG PO (20:10)
[2024-02-10 20:20] VITALS: BP 151/63; PULSE 78; RESP 16; TEMP 36.3; O2SAT 99
[2024-02-10] MEDS: traZODone HCL 50 MG TABLET PO (20:25)
[2024-02-10] MEDS: OLANZapine 5 MG TABLET PO (20:25)
[2024-02-10] MEDS: risperiDONE 2 MG TABLET PO (20:25)
[2024-02-10] MEDS: Divalproex Sodium ER 500 MG TAB.ER.24H 2000 MG PO (20:25)
[2024-02-10] MEDS: hydrOXYzine HCL 25 MG TABLET PO (20:25)
[2024-02-10] MEDS: Lithium Carbonate ER 300 MG TABLET.ER PO (20:25)
[2024-02-10 20:27] LABS: Glucose, Whole Blood 320 mg/dL (60-115)
[2024-02-11] MEDS: Levothyroxine Sodium 125 MCG TABLET PO (06:58)
[2024-02-11 07:52] VITALS: BP 125/59; PULSE 69; RESP 14; TEMP 36.4; O2SAT 96
[2024-02-11 09:03] LABS: Glucose, Whole Blood 168 mg/dL (60-115)
[2024-02-11 09:42] VITALS: BP 125/59; PULSE 69
[2024-02-11] MEDS: Magnesium Oxide 400 MG TABLET PO (09:42)
[2024-02-11] MEDS: Benztropine Mesylate 0.5 MG TABLET PO ×2 (09:42→20:49)
[2024-02-11] MEDS: lisinopriL 10 MG TABLET PO (09:42)
[2024-02-11] MEDS: Propranolol HCL 40 MG TABLET 80 MG PO ×3 (09:42→20:49)
[2024-02-11] MEDS: Lithium Carbonate 300 MG TABLET 150 MG PO (09:43)
[2024-02-11] MEDS: Insulin Lispro 100 UNIT/ML 3 ML VIAL SUBCUT ×3 (09:44→17:44)
[2024-02-11] MEDS: Insulin Glargine,Hum.rec.anlog 100 UNIT/ML 10 ML VIAL 35 UNIT SUBCUT ×2 (09:46→20:47)
[2024-02-11] MEDS: Acetaminophen 325 MG TABLET 650 MG PO (10:19)
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
[2024-02-11 12:59] LABS: Glucose, Whole Blood 267 mg/dL (60-115)
[2024-02-11 15:57] VITALS: BP 125/70; PULSE 77
[2024-02-11 17:43] LABS: Glucose, Whole Blood 360 mg/dL (60-115)
[2024-02-11 18:54] LABS: Glucose, Whole Blood 314 mg/dL (60-115)
[2024-02-11 20:00] VITALS: BP 120/60; PULSE 77; RESP 16; TEMP 36.5; O2SAT 96
[2024-02-11 20:34] LABS: Glucose, Whole Blood 284 mg/dL (60-115)
[2024-02-11] MEDS: Divalproex Sodium ER 500 MG TAB.ER.24H 2000 MG PO (20:49)
[2024-02-11] MEDS: OLANZapine 5 MG TABLET PO (20:50)
[2024-02-11] MEDS: traZODone HCL 50 MG TABLET PO (20:50)
[2024-02-11] MEDS: risperiDONE 2 MG TABLET PO (20:50)
[2024-02-11] MEDS: Lithium Carbonate ER 300 MG TABLET.ER PO (20:50)
[2024-02-11] MEDS: hydrOXYzine HCL 25 MG TABLET PO (20:50)
[2024-02-12] MEDS: traZODone HCL 50 MG TABLET PO ×2 (02:45→21:03)
[2024-02-12] MEDS: Levothyroxine Sodium 125 MCG TABLET PO (06:33)
[2024-02-12 09:04] LABS: Glucose, Whole Blood 147 mg/dL (60-115)
[2024-02-12 09:10] VITALS: BP 140/65; PULSE 79; RESP 14; TEMP 36.4; O2SAT 97
[2024-02-12] MEDS: lisinopriL 10 MG TABLET PO (09:12)
[2024-02-12] MEDS: Magnesium Oxide 400 MG TABLET PO (09:13)
[2024-02-12] MEDS: Benztropine Mesylate 0.5 MG TABLET PO ×2 (09:13→21:04)
[2024-02-12] MEDS: Lithium Carbonate 300 MG TABLET 150 MG PO (09:13)
[2024-02-12] MEDS: Propranolol HCL 40 MG TABLET 80 MG PO ×3 (09:13→21:03)
[2024-02-12] MEDS: Insulin Lispro 100 UNIT/ML 3 ML VIAL SUBCUT ×3 (09:15→18:10)
[2024-02-12] MEDS: Insulin Glargine,Hum.rec.anlog 100 UNIT/ML 10 ML VIAL 35 UNIT SUBCUT ×2 (09:15→21:00)
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
[2024-02-12 12:59] LABS: Glucose, Whole Blood 172 mg/dL (60-115)
[2024-02-12 15:25] VITALS: BP 146/63; PULSE 85
[2024-02-12 15:37] VITALS: BP 146/85; PULSE 85
[2024-02-12 18:07] LABS: Glucose, Whole Blood 374 mg/dL (60-115)
[2024-02-12 20:00] VITALS: BP 122/60; PULSE 82; RESP 16; TEMP 36.4; O2SAT 97
[2024-02-12] MEDS: Divalproex Sodium ER 500 MG TAB.ER.24H 2000 MG PO (21:02)
[2024-02-12] MEDS: Lithium Carbonate ER 300 MG TABLET.ER PO (21:02)
[2024-02-12] MEDS: OLANZapine 5 MG TABLET PO (21:02)
[2024-02-12 21:03] VITALS: BP 122/56; PULSE 82
[2024-02-12] MEDS: hydrOXYzine HCL 25 MG TABLET PO (21:04)
[2024-02-12] MEDS: risperiDONE 2 MG TABLET PO (21:04)
[2024-02-12 23:41] LABS: Glucose, Whole Blood 266 mg/dL (60-115)
[2024-02-13] MEDS: Levothyroxine Sodium 125 MCG TABLET PO (06:32)
[2024-02-13 08:31] LABS: Glucose, Whole Blood 144 mg/dL (60-115)
[2024-02-13 08:35] VITALS: BP 121/69; PULSE 87; RESP 14; TEMP 36.4; O2SAT 97
[2024-02-13] MEDS: Lithium Carbonate 300 MG TABLET 150 MG PO (08:35)
[2024-02-13] MEDS: Magnesium Oxide 400 MG TABLET PO (08:35)
[2024-02-13 08:36] VITALS: BP 121/69; PULSE 87
[2024-02-13] MEDS: Benztropine Mesylate 0.5 MG TABLET PO ×2 (08:36→20:51)
[2024-02-13] MEDS: Propranolol HCL 40 MG TABLET 80 MG PO ×3 (08:36→20:52)
[2024-02-13] MEDS: lisinopriL 10 MG TABLET PO (08:36)
[2024-02-13] MEDS: Insulin Lispro 100 UNIT/ML 3 ML VIAL SUBCUT ×3 (09:16→18:16)
[2024-02-13] MEDS: Insulin Glargine,Hum.rec.anlog 100 UNIT/ML 10 ML VIAL 35 UNIT SUBCUT ×2 (09:16→20:49)
[2024-02-13 12:52] LABS: Glucose, Whole Blood 172 mg/dL (60-115)
[2024-02-13 15:13] VITALS: BP 122/59; PULSE 88
[2024-02-13 17:58] LABS: Glucose, Whole Blood 343 mg/dL (60-115)
[2024-02-13 20:34] LABS: Glucose, Whole Blood 277 mg/dL (60-115)
[2024-02-13 20:49] VITALS: BP 143/65; PULSE 81; RESP 16; TEMP 36.1; O2SAT 97
[2024-02-13] MEDS: Lithium Carbonate ER 300 MG TABLET.ER PO (20:51)
[2024-02-13] MEDS: OLANZapine 5 MG TABLET PO (20:51)
[2024-02-13] MEDS: risperiDONE 2 MG TABLET PO (20:52)
[2024-02-13] MEDS: Divalproex Sodium ER 500 MG TAB.ER.24H 2000 MG PO (20:52)
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
[2024-02-14] MEDS: Levothyroxine Sodium 125 MCG TABLET PO (06:25)
[2024-02-14 08:00] VITALS: BP 142/65; PULSE 71; RESP 18; TEMP 36.3; O2SAT 97
[2024-02-14 08:31] LABS: Glucose, Whole Blood 162 mg/dL (60-115)
[2024-02-14] MEDS: Insulin Lispro 100 UNIT/ML 3 ML VIAL SUBCUT ×3 (08:52→18:03)
[2024-02-14] MEDS: Lithium Carbonate 300 MG TABLET 150 MG PO (08:53)
[2024-02-14] MEDS: Propranolol HCL 40 MG TABLET 80 MG PO ×3 (08:54→21:27)
[2024-02-14] MEDS: lisinopriL 10 MG TABLET PO (08:54)
[2024-02-14] MEDS: Insulin Glargine,Hum.rec.anlog 100 UNIT/ML 10 ML VIAL 35 UNIT SUBCUT ×2 (08:55→20:49)
[2024-02-14] MEDS: Magnesium Oxide 400 MG TABLET PO (08:55)
[2024-02-14] MEDS: Benztropine Mesylate 0.5 MG TABLET PO ×2 (08:55→20:45)
[2024-02-14] MEDS: Acetaminophen 325 MG TABLET 650 MG PO (11:53)
[2024-02-14] MEDS: Lidocaine 4 % Patch ADH..PATCH 1 PATCH TRANSDERMA (11:54)
[2024-02-14 12:39] LABS: Glucose, Whole Blood 245 mg/dL (60-115)
[2024-02-14 14:26] VITALS: BP 138/60; PULSE 77
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
[2024-02-14 18:00] LABS: Glucose, Whole Blood 207 mg/dL (60-115)
[2024-02-14] MEDS: Calcium Carbonate 750 MG TAB.CHEW PO (18:52)
[2024-02-14 20:30] LABS: Glucose, Whole Blood 276 mg/dL (60-115)
[2024-02-14] MEDS: Divalproex Sodium ER 500 MG TAB.ER.24H 2000 MG PO (20:45)
[2024-02-14] MEDS: OLANZapine 5 MG TABLET PO (20:45)
[2024-02-14] MEDS: Lithium Carbonate ER 300 MG TABLET.ER PO (20:45)
[2024-02-14] MEDS: traZODone HCL 50 MG TABLET PO (20:45)
[2024-02-14] MEDS: risperiDONE 2 MG TABLET PO (20:45)
[2024-02-14] MEDS: hydrOXYzine HCL 25 MG TABLET PO (20:45)
[2024-02-14 20:50] VITALS: BP 117/57; PULSE 98; RESP 16; TEMP 36.4; O2SAT 98
[2024-02-15] MEDS: Levothyroxine Sodium 125 MCG TABLET PO (06:38)
[2024-02-15 07:00] VITALS: BMI 42.1
[2024-02-15 07:33] VITALS: BP 128/64; PULSE 66; RESP 16; TEMP 36.7; O2SAT 96
[2024-02-15 08:43] LABS: Glucose, Whole Blood 140 mg/dL (60-115)
[2024-02-15] MEDS: Insulin Glargine,Hum.rec.anlog 100 UNIT/ML 10 ML VIAL 35 UNIT SUBCUT ×2 (08:55→21:15)
[2024-02-15 08:56] VITALS: BP 128/64; PULSE 66
[2024-02-15] MEDS: lisinopriL 10 MG TABLET PO (08:56)
[2024-02-15] MEDS: Propranolol HCL 40 MG TABLET 80 MG PO ×2 (08:56→21:12)
[2024-02-15] MEDS: Benztropine Mesylate 0.5 MG TABLET PO ×2 (08:56→21:05)
[2024-02-15] MEDS: Lithium Carbonate 300 MG TABLET 150 MG PO (08:56)
[2024-02-15] MEDS: Magnesium Oxide 400 MG TABLET PO (08:57)
[2024-02-15] MEDS: Acetaminophen 325 MG TABLET 650 MG PO (10:47)
[2024-02-15 12:45] LABS: Glucose, Whole Blood 189 mg/dL (60-115)
[2024-02-15] MEDS: Insulin Lispro 100 UNIT/ML 3 ML VIAL SUBCUT ×2 (12:55→17:48)
[2024-02-15 15:13] VITALS: BP 114/55; PULSE 72
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
[2024-02-15 17:37] LABS: Glucose, Whole Blood 264 mg/dL (60-115)
[2024-02-15 20:26] VITALS: BP 172/78; PULSE 84; RESP 16; TEMP 36.4
[2024-02-15 21:03] LABS: Glucose, Whole Blood 233 mg/dL (60-115)
[2024-02-15] MEDS: hydrOXYzine HCL 25 MG TABLET PO (21:04)
[2024-02-15] MEDS: Divalproex Sodium ER 500 MG TAB.ER.24H 2000 MG PO (21:04)
[2024-02-15] MEDS: OLANZapine 5 MG TABLET PO (21:04)
[2024-02-15] MEDS: risperiDONE 2 MG TABLET PO (21:05)
[2024-02-15] MEDS: Lithium Carbonate ER 300 MG TABLET.ER PO (21:05)
[2024-02-15] MEDS: traZODone HCL 50 MG TABLET PO (21:05)
[2024-02-16] MEDS: Levothyroxine Sodium 125 MCG TABLET PO (06:38)
[2024-02-16 08:00] VITALS: BP 153/71; PULSE 65; RESP 16; TEMP 36.4; O2SAT 96
[2024-02-16 08:38] LABS: Glucose, Whole Blood 109 mg/dL (60-115)
[2024-02-16] MEDS: Lithium Carbonate 300 MG TABLET 150 MG PO (09:31)
[2024-02-16] MEDS: Benztropine Mesylate 0.5 MG TABLET PO ×2 (09:31→21:12)
[2024-02-16] MEDS: lisinopriL 10 MG TABLET PO (09:31)
[2024-02-16] MEDS: Magnesium Oxide 400 MG TABLET PO (09:31)
[2024-02-16] MEDS: Propranolol HCL 40 MG TABLET 80 MG PO ×2 (09:31→21:11)
[2024-02-16] MEDS: Insulin Glargine,Hum.rec.anlog 100 UNIT/ML 10 ML VIAL 35 UNIT SUBCUT ×2 (09:36→21:12)
[2024-02-16] MEDS: Acetaminophen 325 MG TABLET 650 MG PO (10:23)
[2024-02-16] MEDS: Cyclobenzaprine HCl 10 MG TABLET PO (11:51)
[2024-02-16 12:44] LABS: Glucose, Whole Blood 174 mg/dL (60-115)
[2024-02-16] MEDS: Insulin Lispro 100 UNIT/ML 3 ML VIAL SUBCUT ×2 (13:30→17:49)
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
[2024-02-16 16:25] VITALS: BP 114/58; PULSE 71
[2024-02-16 17:34] LABS: Glucose, Whole Blood 203 mg/dL (60-115)
[2024-02-16 20:31] LABS: Glucose, Whole Blood 269 mg/dL (60-115)
[2024-02-16 21:10] VITALS: RESP 16; TEMP 37; O2SAT 96
[2024-02-16 21:11] VITALS: BP 128/61; PULSE 86
[2024-02-16] MEDS: Divalproex Sodium ER 500 MG TAB.ER.24H 2000 MG PO (21:11)
[2024-02-16] MEDS: risperiDONE 2 MG TABLET PO (21:12)
[2024-02-16] MEDS: OLANZapine 5 MG TABLET PO (21:12)
[2024-02-16] MEDS: Lithium Carbonate ER 300 MG TABLET.ER PO (21:12)
[2024-02-16] MEDS: traZODone HCL 50 MG TABLET PO (21:24)
[2024-02-16] MEDS: hydrOXYzine HCL 25 MG TABLET PO (21:24)
[2024-02-17] MEDS: Levothyroxine Sodium 125 MCG TABLET PO (06:43)
[2024-02-17 07:30] VITALS: BP 115/56; PULSE 72; RESP 16; TEMP 36.6; O2SAT 95
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
[2024-02-17 09:10] LABS: Glucose, Whole Blood 121 mg/dL (60-115)
[2024-02-17 09:38] VITALS: BP 122/64; PULSE 72
[2024-02-17] MEDS: Magnesium Oxide 400 MG TABLET PO (09:38)
[2024-02-17] MEDS: Propranolol HCL 40 MG TABLET 80 MG PO ×2 (09:38→21:21)
[2024-02-17] MEDS: Benztropine Mesylate 0.5 MG TABLET PO ×2 (09:38→21:21)
[2024-02-17 09:39] VITALS: BP 122/64
[2024-02-17] MEDS: lisinopriL 10 MG TABLET PO (09:39)
[2024-02-17] MEDS: Lithium Carbonate 300 MG TABLET 150 MG PO (09:39)
[2024-02-17] MEDS: Insulin Glargine,Hum.rec.anlog 100 UNIT/ML 10 ML VIAL 35 UNIT SUBCUT ×2 (09:53→21:22)
[2024-02-17 12:53] LABS: Glucose, Whole Blood 158 mg/dL (60-115)
[2024-02-17] MEDS: Insulin Lispro 100 UNIT/ML 3 ML VIAL SUBCUT ×2 (13:21→18:01)
[2024-02-17 15:38] VITALS: BP 113/56; PULSE 73
[2024-02-17 17:54] LABS: Glucose, Whole Blood 327 mg/dL (60-115)
[2024-02-17 20:46] LABS: Glucose, Whole Blood 248 mg/dL (60-115)
[2024-02-17 21:19] VITALS: BP 134/78; PULSE 88; RESP 14; TEMP 36.4; O2SAT 98
[2024-02-17] MEDS: hydrOXYzine HCL 25 MG TABLET PO (21:21)
[2024-02-17] MEDS: Divalproex Sodium ER 500 MG TAB.ER.24H 2000 MG PO (21:21)
[2024-02-17] MEDS: OLANZapine 5 MG TABLET PO (21:21)
[2024-02-17] MEDS: Lithium Carbonate ER 300 MG TABLET.ER PO (21:21)
[2024-02-17] MEDS: traZODone HCL 50 MG TABLET PO (21:21)
[2024-02-17] MEDS: risperiDONE 2 MG TABLET PO (21:22)
[2024-02-18] MEDS: Levothyroxine Sodium 125 MCG TABLET PO (06:50)
[2024-02-18 07:37] VITALS: BP 148/69; PULSE 68; RESP 16; TEMP 36.5; O2SAT 98
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
[2024-02-18 08:43] LABS: Glucose, Whole Blood 145 mg/dL (60-115)
[2024-02-18] MEDS: Lithium Carbonate 300 MG TABLET 150 MG PO (08:54)
[2024-02-18] MEDS: lisinopriL 10 MG TABLET PO (08:54)
[2024-02-18] MEDS: Propranolol HCL 40 MG TABLET 80 MG PO ×3 (08:54→21:58)
[2024-02-18] MEDS: Insulin Glargine,Hum.rec.anlog 100 UNIT/ML 10 ML VIAL 35 UNIT SUBCUT ×2 (08:54→22:00)
[2024-02-18] MEDS: Benztropine Mesylate 0.5 MG TABLET PO ×2 (08:54→21:58)
[2024-02-18] MEDS: Magnesium Oxide 400 MG TABLET PO (08:54)
[2024-02-18 12:33] LABS: Glucose, Whole Blood 174 mg/dL (60-115)
[2024-02-18] MEDS: Insulin Lispro 100 UNIT/ML 3 ML VIAL SUBCUT ×2 (13:25→18:04)
[2024-02-18 14:39] VITALS: BP 139/65; PULSE 78
[2024-02-18 17:44] LABS: Glucose, Whole Blood 242 mg/dL (60-115)
[2024-02-18 21:42] VITALS: BP 156/67; PULSE 75; RESP 16; TEMP 36.5; O2SAT 98
[2024-02-18 21:51] LABS: Glucose, Whole Blood 211 mg/dL (60-115)
[2024-02-18] MEDS: OLANZapine 5 MG TABLET PO (21:58)
[2024-02-18] MEDS: traZODone HCL 50 MG TABLET PO (21:58)
[2024-02-18] MEDS: Divalproex Sodium ER 500 MG TAB.ER.24H 2000 MG PO (21:58)
[2024-02-18] MEDS: Lithium Carbonate ER 300 MG TABLET.ER PO (21:58)
[2024-02-18] MEDS: hydrOXYzine HCL 25 MG TABLET PO (21:58)
[2024-02-18] MEDS: risperiDONE 2 MG TABLET PO (21:58)
[2024-02-19] MEDS: Levothyroxine Sodium 125 MCG TABLET PO (06:53)
[2024-02-19 07:40] VITALS: BP 126/59; PULSE 68; RESP 16; TEMP 36.4; O2SAT 98
[2024-02-19 08:35] LABS: Glucose, Whole Blood 95 mg/dL (60-115)
[2024-02-19 09:00] VITALS: BP 122/62; PULSE 70
[2024-02-19] MEDS: Benztropine Mesylate 0.5 MG TABLET PO ×2 (09:01→22:08)
[2024-02-19] MEDS: Propranolol HCL 40 MG TABLET 80 MG PO ×3 (09:01→22:08)
[2024-02-19] MEDS: Magnesium Oxide 400 MG TABLET PO (09:01)
[2024-02-19] MEDS: Insulin Glargine,Hum.rec.anlog 100 UNIT/ML 10 ML VIAL 35 UNIT SUBCUT ×2 (09:01→22:12)
[2024-02-19] MEDS: lisinopriL 10 MG TABLET PO (09:01)
[2024-02-19] MEDS: Lithium Carbonate 300 MG TABLET 150 MG PO (09:04)
[2024-02-19 12:38] LABS: Glucose, Whole Blood 150 mg/dL (60-115)
[2024-02-19] MEDS: Insulin Lispro 100 UNIT/ML 3 ML VIAL SUBCUT ×2 (12:49→18:31)
[2024-02-19] MEDS: Acetaminophen 325 MG TABLET 650 MG PO ×2 (14:24→22:18)
[2024-02-19 14:27] VITALS: BP 128/60; PULSE 79
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
[2024-02-19 17:45] LABS: Glucose, Whole Blood 228 mg/dL (60-115)
[2024-02-19] MEDS: Calcium Carbonate 750 MG TAB.CHEW PO (18:30)
[2024-02-19 21:22] VITALS: BP 125/60; PULSE 72; TEMP 36.3; O2SAT 98
[2024-02-19 22:02] LABS: Glucose, Whole Blood 224 mg/dL (60-115)
[2024-02-19] MEDS: traZODone HCL 50 MG TABLET PO (22:08)
[2024-02-19] MEDS: hydrOXYzine HCL 25 MG TABLET PO (22:08)
[2024-02-19] MEDS: risperiDONE 2 MG TABLET PO (22:08)
[2024-02-19] MEDS: OLANZapine 5 MG TABLET PO (22:08)
[2024-02-19] MEDS: Lithium Carbonate ER 300 MG TABLET.ER PO (22:08)
[2024-02-19] MEDS: Divalproex Sodium ER 500 MG TAB.ER.24H 2000 MG PO (22:09)
[2024-02-20] MEDS: Levothyroxine Sodium 125 MCG TABLET PO (06:41)
[2024-02-20 07:56] VITALS: BP 126/75; PULSE 62; RESP 16; TEMP 36.4; O2SAT 99
[2024-02-20 08:39] LABS: Glucose, Whole Blood 74 mg/dL (60-115)
[2024-02-20] MEDS: Insulin Glargine,Hum.rec.anlog 100 UNIT/ML 10 ML VIAL 35 UNIT SUBCUT ×2 (09:16→21:25)
[2024-02-20 09:17] VITALS: BP 120/70; PULSE 66
[2024-02-20] MEDS: Propranolol HCL 40 MG TABLET 80 MG PO ×3 (09:17→21:26)
[2024-02-20 09:18] VITALS: BP 120/70
[2024-02-20] MEDS: lisinopriL 10 MG TABLET PO (09:18)
[2024-02-20] MEDS: Benztropine Mesylate 0.5 MG TABLET PO ×2 (09:18→21:28)
[2024-02-20] MEDS: Lithium Carbonate 300 MG TABLET 150 MG PO (09:19)
[2024-02-20] MEDS: Lidocaine 4 % Patch ADH..PATCH 1 PATCH TRANSDERMA (09:20)
[2024-02-20] MEDS: Magnesium Oxide 400 MG TABLET PO (09:22)
[2024-02-20 12:36] LABS: Glucose, Whole Blood 249 mg/dL (60-115)
[2024-02-20] MEDS: Insulin Lispro 100 UNIT/ML 3 ML VIAL SUBCUT ×2 (12:40→18:07)
[2024-02-20] MEDS: Calcium Carbonate 750 MG TAB.CHEW PO (13:33)
[2024-02-20] MEDS: Acetaminophen 325 MG TABLET 650 MG PO (15:33)
[2024-02-20] MEDS: Cyclobenzaprine HCl 10 MG TABLET PO (15:33)
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
[2024-02-20 17:59] LABS: Glucose, Whole Blood 249 mg/dL (60-115)
[2024-02-20 20:58] LABS: Glucose, Whole Blood 232 mg/dL (60-115)
[2024-02-20 21:23] VITALS: BP 171/74; PULSE 81; RESP 16; TEMP 36.1; O2SAT 98
[2024-02-20] MEDS: risperiDONE 2 MG TABLET PO (21:26)
[2024-02-20] MEDS: Divalproex Sodium ER 500 MG TAB.ER.24H 2000 MG PO (21:26)
[2024-02-20] MEDS: OLANZapine 5 MG TABLET PO (21:26)
[2024-02-20] MEDS: hydrOXYzine HCL 25 MG TABLET PO (21:26)
[2024-02-20] MEDS: Lithium Carbonate ER 300 MG TABLET.ER PO (21:26)
[2024-02-20] MEDS: traZODone HCL 50 MG TABLET PO (21:26)
[2024-02-21] MEDS: Levothyroxine Sodium 125 MCG TABLET PO (06:49)
[2024-02-21 07:50] VITALS: PULSE 66; RESP 18; TEMP 36.4; O2SAT 99
[2024-02-21 08:55] LABS: Glucose, Whole Blood 137 mg/dL (60-115)
[2024-02-21] MEDS: Lidocaine 4 % Patch ADH..PATCH 1 PATCH TRANSDERMA (09:19)
[2024-02-21] MEDS: Insulin Lispro 100 UNIT/ML 3 ML VIAL SUBCUT ×3 (09:19→18:11)
[2024-02-21 09:20] VITALS: BP 120/60; PULSE 66
[2024-02-21] MEDS: Insulin Glargine,Hum.rec.anlog 100 UNIT/ML 10 ML VIAL 35 UNIT SUBCUT ×2 (09:20→21:13)
[2024-02-21] MEDS: Propranolol HCL 40 MG TABLET 80 MG PO ×3 (09:20→21:15)
[2024-02-21] MEDS: Lithium Carbonate 300 MG TABLET 150 MG PO (09:20)
[2024-02-21] MEDS: Benztropine Mesylate 0.5 MG TABLET PO ×2 (09:20→21:18)
[2024-02-21 09:21] VITALS: BP 120/60
[2024-02-21] MEDS: lisinopriL 10 MG TABLET PO (09:21)
[2024-02-21] MEDS: Magnesium Oxide 400 MG TABLET PO (09:21)
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
[2024-02-21 12:54] LABS: Glucose, Whole Blood 122 mg/dL (60-115)
[2024-02-21 15:38] VITALS: BP 121/59; PULSE 80
[2024-02-21] MEDS: Acetaminophen 325 MG TABLET 650 MG PO (16:32)
[2024-02-21] MEDS: Benzocaine 20 % Oral Gel 9 GM TUBE 1 APPL MUCOUS MEM (16:33)
[2024-02-21 17:50] LABS: Glucose, Whole Blood 239 mg/dL (60-115)
[2024-02-21 20:00] VITALS: BP 136/61; PULSE 72; RESP 16; TEMP 36.2; O2SAT 99
[2024-02-21 20:05] LABS: Glucose, Whole Blood 191 mg/dL (60-115)
[2024-02-21 21:15] VITALS: BP 130/65; PULSE 90
[2024-02-21] MEDS: Divalproex Sodium ER 500 MG TAB.ER.24H 2000 MG PO (21:15)
[2024-02-21] MEDS: Lithium Carbonate ER 300 MG TABLET.ER PO (21:17)
[2024-02-21] MEDS: OLANZapine 5 MG TABLET PO (21:17)
[2024-02-21] MEDS: risperiDONE 2 MG TABLET PO (21:19)
[2024-02-21] MEDS: hydrOXYzine HCL 25 MG TABLET PO (23:40)
[2024-02-21] MEDS: traZODone HCL 50 MG TABLET PO (23:40)
[2024-02-22] MEDS: Levothyroxine Sodium 125 MCG TABLET PO (06:42)
[2024-02-22 08:00] VITALS: BP 143/63; PULSE 73; RESP 16; TEMP 36.4; O2SAT 99
[2024-02-22 08:57] LABS: Glucose, Whole Blood 206 mg/dL (60-115)
[2024-02-22 09:15] VITALS: BP 143/63; PULSE 73
[2024-02-22] MEDS: Lithium Carbonate 300 MG TABLET 150 MG PO (09:15)
[2024-02-22] MEDS: Propranolol HCL 40 MG TABLET 80 MG PO ×2 (09:15→22:35)
[2024-02-22] MEDS: lisinopriL 10 MG TABLET PO (09:16)
[2024-02-22] MEDS: Benztropine Mesylate 0.5 MG TABLET PO ×2 (09:16→22:35)
[2024-02-22] MEDS: Insulin Lispro 100 UNIT/ML 3 ML VIAL SUBCUT ×3 (09:16→17:52)
[2024-02-22] MEDS: Insulin Glargine,Hum.rec.anlog 100 UNIT/ML 10 ML VIAL 35 UNIT SUBCUT ×2 (09:16→22:34)
[2024-02-22] MEDS: Magnesium Oxide 400 MG TABLET PO (09:16)
[2024-02-22 10:37] VITALS: BMI 40.2
[2024-02-22 12:31] LABS: Glucose, Whole Blood 171 mg/dL (60-115)
[2024-02-22 15:14] VITALS: BP 123/56; PULSE 70
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
[2024-02-22 17:41] LABS: Glucose, Whole Blood 178 mg/dL (60-115)
[2024-02-22 22:35] VITALS: BP 140/67; PULSE 74
[2024-02-22] MEDS: traZODone HCL 50 MG TABLET PO (22:35)
[2024-02-22] MEDS: OLANZapine 5 MG TABLET PO (22:35)
[2024-02-22] MEDS: risperiDONE 2 MG TABLET PO (22:36)
[2024-02-22] MEDS: Lithium Carbonate ER 300 MG TABLET.ER PO (22:36)
[2024-02-22] MEDS: Divalproex Sodium ER 500 MG TAB.ER.24H 2000 MG PO (22:36)
[2024-02-22] MEDS: hydrOXYzine HCL 25 MG TABLET PO (22:36)
[2024-02-22 22:43] VITALS: BP 140/67; PULSE 74; RESP 16; TEMP 36.3; O2SAT 96
[2024-02-22 22:50] LABS: Glucose, Whole Blood 202 mg/dL (60-115)
[2024-02-23] MEDS: Levothyroxine Sodium 125 MCG TABLET PO (06:25)
[2024-02-23 07:37] VITALS: BP 114/62; PULSE 67; RESP 16; TEMP 36.6; O2SAT 97
[2024-02-23 08:49] VITALS: BP 136/60; PULSE 70
[2024-02-23 08:51] LABS: Glucose, Whole Blood 80 mg/dL (60-115)
[2024-02-23] MEDS: Lithium Carbonate 300 MG TABLET 150 MG PO (08:52)
[2024-02-23] MEDS: Benztropine Mesylate 0.5 MG TABLET PO ×2 (08:52→21:04)
[2024-02-23] MEDS: Magnesium Oxide 400 MG TABLET PO (08:52)
[2024-02-23] MEDS: lisinopriL 10 MG TABLET PO (08:52)
[2024-02-23] MEDS: Propranolol HCL 40 MG TABLET 80 MG PO ×3 (08:52→21:05)
[2024-02-23] MEDS: Insulin Glargine,Hum.rec.anlog 100 UNIT/ML 10 ML VIAL 35 UNIT SUBCUT ×2 (09:15→21:08)
[2024-02-23 12:46] LABS: Glucose, Whole Blood 174 mg/dL (60-115)
[2024-02-23] MEDS: Insulin Lispro 100 UNIT/ML 3 ML VIAL SUBCUT ×2 (12:55→17:44)
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
[2024-02-23 15:00] VITALS: BP 135/61; PULSE 72; RESP 16
[2024-02-23 17:31] LABS: Glucose, Whole Blood 126 mg/dL (60-115)
[2024-02-23 20:50] VITALS: BP 140/66; PULSE 79; RESP 16; TEMP 36.3; O2SAT 97
[2024-02-23 20:58] LABS: Glucose, Whole Blood 232 mg/dL (60-115)
[2024-02-23] MEDS: Divalproex Sodium ER 500 MG TAB.ER.24H 2000 MG PO (21:04)
[2024-02-23] MEDS: Lithium Carbonate ER 300 MG TABLET.ER PO (21:04)
[2024-02-23] MEDS: traZODone HCL 50 MG TABLET PO ×2 (21:05→23:18)
[2024-02-23] MEDS: hydrOXYzine HCL 25 MG TABLET PO (21:05)
[2024-02-23] MEDS: OLANZapine 5 MG TABLET PO (21:05)
[2024-02-23] MEDS: risperiDONE 2 MG TABLET PO (21:05)
[2024-02-24] MEDS: Levothyroxine Sodium 125 MCG TABLET PO (06:51)
[2024-02-24 07:40] VITALS: BP 141/72; PULSE 69; RESP 14; TEMP 36.4; O2SAT 98
[2024-02-24 08:43] LABS: Glucose, Whole Blood 138 mg/dL (60-115)
[2024-02-24] MEDS: Insulin Lispro 100 UNIT/ML 3 ML VIAL SUBCUT ×3 (09:15→17:54)
[2024-02-24] MEDS: Insulin Glargine,Hum.rec.anlog 100 UNIT/ML 10 ML VIAL 35 UNIT SUBCUT ×2 (09:15→22:05)
[2024-02-24 09:16] VITALS: BP 140/76; PULSE 70
[2024-02-24] MEDS: Propranolol HCL 40 MG TABLET 80 MG PO ×3 (09:16→22:03)
[2024-02-24] MEDS: Magnesium Oxide 400 MG TABLET PO (09:16)
[2024-02-24] MEDS: Lithium Carbonate 300 MG TABLET 150 MG PO (09:16)
[2024-02-24 09:17] VITALS: BP 140/76
[2024-02-24] MEDS: lisinopriL 10 MG TABLET PO (09:17)
[2024-02-24] MEDS: Benztropine Mesylate 0.5 MG TABLET PO ×2 (09:17→22:02)
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
[2024-02-24] MEDS: Lidocaine 4 % Patch ADH..PATCH 1 PATCH TRANSDERMA (11:22)
[2024-02-24] MEDS: Acetaminophen 325 MG TABLET 650 MG PO (11:38)
[2024-02-24] MEDS: Benzocaine 20 % Oral Gel 9 GM TUBE 1 APPL MUCOUS MEM (11:39)
[2024-02-24 12:46] LABS: Glucose, Whole Blood 201 mg/dL (60-115)
[2024-02-24 15:22] VITALS: BP 132/60; PULSE 77
[2024-02-24 17:53] LABS: Glucose, Whole Blood 245 mg/dL (60-115)
[2024-02-24 21:32] VITALS: BP 128/73; PULSE 71; RESP 16; TEMP 36.1; O2SAT 98
[2024-02-24 21:53] LABS: Glucose, Whole Blood 246 mg/dL (60-115)
[2024-02-24] MEDS: Divalproex Sodium ER 500 MG TAB.ER.24H 2000 MG PO (22:02)
[2024-02-24] MEDS: risperiDONE 2 MG TABLET PO (22:03)
[2024-02-24] MEDS: hydrOXYzine HCL 25 MG TABLET PO (22:03)
[2024-02-24] MEDS: traZODone HCL 50 MG TABLET PO (22:03)
[2024-02-24] MEDS: OLANZapine 5 MG TABLET PO (22:03)
[2024-02-24] MEDS: Lithium Carbonate ER 300 MG TABLET.ER PO (22:03)
[2024-02-25] MEDS: Levothyroxine Sodium 125 MCG TABLET PO (07:04)
[2024-02-25 08:31] VITALS: BP 135/73; PULSE 67; RESP 16; TEMP 36.3; O2SAT 98
[2024-02-25 08:43] LABS: Glucose, Whole Blood 96 mg/dL (60-115)
[2024-02-25] MEDS: Propranolol HCL 40 MG TABLET 80 MG PO ×3 (09:12→21:48)
[2024-02-25] MEDS: Lithium Carbonate 300 MG TABLET 150 MG PO (09:13)
[2024-02-25] MEDS: Benztropine Mesylate 0.5 MG TABLET PO ×2 (09:13→21:49)
[2024-02-25] MEDS: Magnesium Oxide 400 MG TABLET PO (09:13)
[2024-02-25] MEDS: Insulin Glargine,Hum.rec.anlog 100 UNIT/ML 10 ML VIAL 35 UNIT SUBCUT ×2 (09:14→21:48)
[2024-02-25] MEDS: Lidocaine 4 % Patch ADH..PATCH 1 PATCH TRANSDERMA (09:16)
[2024-02-25] MEDS: lisinopriL 10 MG TABLET PO (09:22)
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
[2024-02-25 13:03] LABS: Glucose, Whole Blood 161 mg/dL (60-115)
[2024-02-25] MEDS: Insulin Lispro 100 UNIT/ML 3 ML VIAL SUBCUT ×2 (13:14→18:03)
[2024-02-25 15:22] VITALS: BP 132/60; PULSE 75; O2SAT 97
[2024-02-25] MEDS: Acetaminophen 325 MG TABLET 650 MG PO (17:09)
[2024-02-25] MEDS: Benzocaine 20 % Oral Gel 9 GM TUBE 1 APPL MUCOUS MEM ×2 (17:10→22:14)
[2024-02-25 17:35] LABS: Glucose, Whole Blood 307 mg/dL (60-115)
[2024-02-25 20:36] LABS: Glucose, Whole Blood 276 mg/dL (60-115)
[2024-02-25 21:43] VITALS: BP 131/66; PULSE 70; RESP 16; TEMP 36.1; O2SAT 98
[2024-02-25] MEDS: Lithium Carbonate ER 300 MG TABLET.ER PO (21:49)
[2024-02-25] MEDS: Divalproex Sodium ER 500 MG TAB.ER.24H 2000 MG PO (21:49)
[2024-02-25] MEDS: OLANZapine 5 MG TABLET PO (21:49)
[2024-02-25] MEDS: hydrOXYzine HCL 25 MG TABLET PO (21:49)
[2024-02-25] MEDS: risperiDONE 2 MG TABLET PO (21:49)
[2024-02-25] MEDS: traZODone HCL 50 MG TABLET PO (21:49)
[2024-02-25] MEDS: Cyclobenzaprine HCl 10 MG TABLET PO (22:13)
[2024-02-26] MEDS: traZODone HCL 50 MG TABLET PO ×2 (01:05→21:18)
[2024-02-26] MEDS: Levothyroxine Sodium 125 MCG TABLET PO (06:13)
[2024-02-26 07:39] VITALS: BP 138/73; PULSE 73; RESP 18; TEMP 36.2; O2SAT 100
[2024-02-26] MEDS: lisinopriL 10 MG TABLET PO (08:04)
[2024-02-26] MEDS: Propranolol HCL 40 MG TABLET 80 MG PO ×3 (08:04→21:17)
[2024-02-26] MEDS: Lithium Carbonate 300 MG TABLET 150 MG PO (08:04)
[2024-02-26] MEDS: Magnesium Oxide 400 MG TABLET PO (08:04)
[2024-02-26] MEDS: Benztropine Mesylate 0.5 MG TABLET PO ×2 (08:04→21:18)
[2024-02-26 08:40] LABS: Glucose, Whole Blood 268 mg/dL (60-115)
[2024-02-26] MEDS: Insulin Glargine,Hum.rec.anlog 100 UNIT/ML 10 ML VIAL 35 UNIT SUBCUT ×2 (08:52→21:16)
[2024-02-26] MEDS: Insulin Lispro 100 UNIT/ML 3 ML VIAL SUBCUT ×3 (08:53→17:53)
[2024-02-26] MEDS: Lidocaine 4 % Patch ADH..PATCH 1 PATCH TRANSDERMA (12:19)
[2024-02-26 12:40] LABS: Glucose, Whole Blood 230 mg/dL (60-115)
[2024-02-26] MEDS: Calcium Carbonate 750 MG TAB.CHEW PO (13:17)
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
[2024-02-26 15:32] VITALS: BP 131/76; PULSE 76; O2SAT 96
[2024-02-26 18:00] LABS: Glucose, Whole Blood 268 mg/dL (60-115)
[2024-02-26 20:00] VITALS: RESP 16; TEMP 36.6; O2SAT 96
[2024-02-26 21:17] VITALS: BP 145/78; PULSE 88
[2024-02-26] MEDS: Lithium Carbonate ER 300 MG TABLET.ER PO (21:17)
[2024-02-26] MEDS: Divalproex Sodium ER 500 MG TAB.ER.24H 2000 MG PO (21:17)
[2024-02-26] MEDS: hydrOXYzine HCL 25 MG TABLET PO (21:18)
[2024-02-26] MEDS: OLANZapine 5 MG TABLET PO (21:18)
[2024-02-26] MEDS: risperiDONE 2 MG TABLET PO (21:18)
[2024-02-26 21:34] LABS: Glucose, Whole Blood 253 mg/dL (60-115)
[2024-02-27] MEDS: Levothyroxine Sodium 125 MCG TABLET PO (06:41)
[2024-02-27] MEDS: Magnesium Oxide 400 MG TABLET PO (08:41)
[2024-02-27 08:49] VITALS: BP 143/65; PULSE 71; RESP 20; TEMP 36.6; O2SAT 95
[2024-02-27] MEDS: Benztropine Mesylate 0.5 MG TABLET PO ×2 (08:51→21:36)
[2024-02-27] MEDS: lisinopriL 10 MG TABLET PO (08:52)
[2024-02-27 08:54] LABS: Glucose, Whole Blood 191 mg/dL (60-115)
[2024-02-27] MEDS: Lithium Carbonate 300 MG TABLET 150 MG PO (08:54)
[2024-02-27] MEDS: Insulin Glargine,Hum.rec.anlog 100 UNIT/ML 10 ML VIAL 35 UNIT SUBCUT ×2 (08:55→21:35)
[2024-02-27] MEDS: Insulin Lispro 100 UNIT/ML 3 ML VIAL SUBCUT ×3 (08:56→18:15)
[2024-02-27] MEDS: Propranolol HCL 40 MG TABLET 80 MG PO ×3 (09:02→21:36)
[2024-02-27 12:31] LABS: Glucose, Whole Blood 156 mg/dL (60-115)
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
[2024-02-27 15:43] VITALS: BP 137/61; PULSE 76; RESP 20; TEMP 36.8; O2SAT 95
[2024-02-27 17:44] LABS: Appearance Urine Clear; Color Urine Yellow; Glucose Urine UA 250 mg/dL (Negative); Leukocyte Esterase Urine Negative (Negative); Nitrite Urine Negative (Negative); Urine Blood Negative (Negative); Urine Ketones Trace mg/dL (Negative); Urine Protein Negative (Neg-Trace)
[2024-02-27 17:53] LABS: Glucose, Whole Blood 277 mg/dL (60-115)
[2024-02-27 20:51] VITALS: BP 148/71; PULSE 81; RESP 16; TEMP 36.2; O2SAT 95
[2024-02-27 20:54] LABS: Glucose, Whole Blood 245 mg/dL (60-115)
[2024-02-27] MEDS: traZODone HCL 50 MG TABLET PO (21:36)
[2024-02-27] MEDS: hydrOXYzine HCL 25 MG TABLET PO (21:36)
[2024-02-27] MEDS: risperiDONE 2 MG TABLET PO (21:36)
[2024-02-27] MEDS: OLANZapine 5 MG TABLET PO (21:36)
--- NOTE | 2024-02-27 21:42 | PC.NURSE ---
Addendum entered by Emily Schafer RN 02/28/24 00:26: stuttering Original Note: confusion-increased difficulties with word finding this evening. referred to place, as she shuddered, as [place]. appears with increase fine tremors in hands/body as she sat on the side of her bed. eye contact was good. when asked to hold her arms/hands out at full length was able to do so and was able to hold the move. face appears with symmetry. able to stick her tongue out without any variances, bilateral grasps equal. UA WNL. visual presentation manager has ordered labs including li, depakote, ammonia, tsh. plan was reviewed with patient VIA translator interpreter.
[2024-02-27 22:05] LABS: MANUAL DIFF FLAG NO
[2024-02-27 22:08] LABS: Basophils Percent Auto 0.5 % (0-2); Eosinophils Absolute Auto 0.1 X10*3/uL (0.0-0.4); Eosinophils Percent Auto 2.8 % (0-4); Hematocrit 34.2 % (37.0-47.0); Hemoglobin 11.8 g/dl (12.0-16.0); Imm Gran Abs Auto 0.03 X10*3/uL (0.00-0.03); Imm Gran Pct Auto 0.7 % (0.0-0.4); Lymphocytes Absolute Auto 1.6 X10*3/uL (1.2-4.9); Lymphocytes Percent Auto 37.7 % (20-40); Mean Corpuscular HGB Conc 34.5 g/dl (31.0-35.0); Mean Corpuscular Hemoglobin 30.9 pg (27.0-33.0); Mean Corpuscular Volume 89.5 fL (80.0-98.0); Mean Platelet Volume 9.3 fL (9.4-12.3); Monocytes Absolute Auto 0.5 X10*3/uL (0.1-1.2); Monocytes Percent Auto 12.6 % (2-11); Neutrophils Percent Auto 45.7 % (45-73); Platelet Count 112 X10*3/uL (160-400); Red Blood Count 3.82 X10*6/uL (4.20-5.50); Red Cell Distribution Width 14.4 % (11.0-16.0); White Blood Count 4.3 X10*3/uL (4.8-10.8)
[2024-02-27 22:16] LABS: Ammonia 36 umol/L (13-55)
[2024-02-27 22:17] LABS: Lithium 0.42 mmol/L (0.60-1.20)
[2024-02-27 22:22] LABS: Valproate 56.6 mcg/mL (50.0-100.0)
[2024-02-27] MEDS: Lithium Carbonate ER 300 MG TABLET.ER PO (22:28)
[2024-02-27] MEDS: Divalproex Sodium ER 500 MG TAB.ER.24H 2000 MG PO (22:28)
[2024-02-27 22:32] LABS: Alanine Aminotransferase 17 U/L (0-31); Albumin Level 3.5 g/dL (3.5-5.0); Alkaline Phosphatase 77 U/L (39-117); Anion Gap 13 (12-20); Aspartate Amino Transferase 13 U/L (5-31); Bilirubin Total 0.2 mg/dL (0.0-1.0); Blood Urea Nitrogen 14 mg/dL (9-16); Calcium 9.2 mg/dL (8.4-10.2); Carbon Dioxide 26 mmol/L (22-29); Chloride 102 mmol/L (96-108); Creatinine Clr Calc Pharmacy 70.8; Estimated Glomerular Filt Rate > 60; Glucose Random 318 mg/dL (60-115); Potassium 4.9 mmol/L (3.3-5.1); Sodium 136 mmol/L (135-145); Total Protein 6.1 g/dL (6.5-8.0)
--- NOTE | 2024-02-28 00:38 | PC.NURSE ---
labs-li/depakote wnl. hospitalist notified of TSH level. no new orders.
[2024-02-28] MEDS: Levothyroxine Sodium 125 MCG TABLET PO (06:35)
[2024-02-28 08:41] LABS: Glucose, Whole Blood 88 mg/dL (60-115)
[2024-02-28] MEDS: Lithium Carbonate 300 MG TABLET 150 MG PO (09:30)
[2024-02-28 09:31] VITALS: BP 139/65
[2024-02-28] MEDS: Magnesium Oxide 400 MG TABLET PO (09:31)
[2024-02-28] MEDS: lisinopriL 10 MG TABLET PO (09:31)
[2024-02-28] MEDS: Insulin Glargine,Hum.rec.anlog 100 UNIT/ML 10 ML VIAL 35 UNIT SUBCUT ×2 (09:31→20:32)
[2024-02-28] MEDS: Benztropine Mesylate 0.5 MG TABLET PO ×2 (09:31→20:20)
[2024-02-28 09:50] VITALS: BP 139/65; PULSE 73; TEMP 36.3; O2SAT 97
[2024-02-28] MEDS: Propranolol HCL 40 MG TABLET 80 MG PO ×3 (09:50→20:20)
[2024-02-28] MEDS: Lidocaine 4 % Patch ADH..PATCH 1 PATCH TRANSDERMA (12:36)
[2024-02-28] MEDS: Acetaminophen 325 MG TABLET 650 MG PO (12:41)
[2024-02-28 12:44] LABS: Glucose, Whole Blood 177 mg/dL (60-115)
[2024-02-28] MEDS: Insulin Lispro 100 UNIT/ML 3 ML VIAL SUBCUT ×2 (13:19→17:55)
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
[2024-02-28 15:35] VITALS: BP 126/60; PULSE 76; O2SAT 95
[2024-02-28 17:46] LABS: Glucose, Whole Blood 137 mg/dL (60-115)
[2024-02-28 19:52] VITALS: BP 129/63; PULSE 72; RESP 16; TEMP 36.6; O2SAT 97
[2024-02-28 20:06] LABS: Glucose, Whole Blood 276 mg/dL (60-115)
[2024-02-28] MEDS: hydrOXYzine HCL 25 MG TABLET PO (20:20)
[2024-02-28] MEDS: OLANZapine 5 MG TABLET PO (20:20)
[2024-02-28] MEDS: traZODone HCL 50 MG TABLET PO (20:20)
[2024-02-28] MEDS: Divalproex Sodium ER 250 MG TAB.ER.24H PO (20:21)
[2024-02-28] MEDS: Lithium Carbonate ER 300 MG TABLET.ER PO (20:21)
[2024-02-28] MEDS: risperiDONE 2 MG TABLET PO (20:21)
[2024-02-28] MEDS: Divalproex Sodium ER 500 MG TAB.ER.24H 2000 MG PO (20:21)
[2024-02-28] MEDS: Calcium Carbonate 750 MG TAB.CHEW PO (21:19)
[2024-02-29] MEDS: Levothyroxine Sodium 125 MCG TABLET PO (06:51)
[2024-02-29 07:00] VITALS: BMI 41.8
[2024-02-29 07:42] VITALS: BP 140/77; PULSE 72; RESP 18; TEMP 36.3; O2SAT 96
[2024-02-29 07:58] LABS: Glucose, Whole Blood 141 mg/dL (60-115)
[2024-02-29] MEDS: Insulin Glargine,Hum.rec.anlog 100 UNIT/ML 10 ML VIAL 35 UNIT SUBCUT ×2 (09:11→20:58)
[2024-02-29] MEDS: Insulin Lispro 100 UNIT/ML 3 ML VIAL SUBCUT ×3 (09:11→17:54)
[2024-02-29] MEDS: Propranolol HCL 40 MG TABLET 80 MG PO ×4 (09:12→23:56)
[2024-02-29] MEDS: Benztropine Mesylate 0.5 MG TABLET PO ×2 (09:12→20:55)
[2024-02-29] MEDS: lisinopriL 10 MG TABLET PO (09:12)
[2024-02-29] MEDS: Magnesium Oxide 400 MG TABLET PO (09:12)
[2024-02-29] MEDS: Lidocaine 4 % Patch ADH..PATCH 1 PATCH TRANSDERMA (09:12)
[2024-02-29] MEDS: Lithium Carbonate ER 300 MG TABLET.ER PO ×2 (09:12→20:56)
[2024-02-29] MEDS: Lithium Carbonate 300 MG TABLET 150 MG PO (09:12)
[2024-02-29 12:27] LABS: Glucose, Whole Blood 159 mg/dL (60-115)
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
[2024-02-29 14:58] VITALS: BP 132/74; PULSE 78; O2SAT 98
[2024-02-29] MEDS: Acetaminophen 325 MG TABLET 650 MG PO (16:01)
[2024-02-29 17:40] LABS: Glucose, Whole Blood 204 mg/dL (60-115)
[2024-02-29 20:04] VITALS: BP 124/71; PULSE 82; RESP 16; TEMP 36.8; O2SAT 97
[2024-02-29 20:46] LABS: Glucose, Whole Blood 220 mg/dL (60-115)
[2024-02-29] MEDS: traZODone HCL 50 MG TABLET PO ×2 (20:55→23:52)
[2024-02-29] MEDS: risperiDONE 2 MG TABLET PO (20:56)
[2024-02-29] MEDS: Cyclobenzaprine HCl 10 MG TABLET PO (20:56)
[2024-02-29] MEDS: Divalproex Sodium ER 250 MG TAB.ER.24H PO (20:56)
[2024-02-29] MEDS: OLANZapine 5 MG TABLET PO ×2 (20:57→23:51)
[2024-02-29] MEDS: Divalproex Sodium ER 500 MG TAB.ER.24H 2000 MG PO (20:57)
[2024-02-29] MEDS: Artificial Tears 15 ML DROPS 1 DROP EYE-BOTH (21:03)
[2024-02-29] MEDS: Benzocaine 20 % Oral Gel 9 GM TUBE 1 APPL MUCOUS MEM (21:03)
[2024-03-01] MEDS: Levothyroxine Sodium 125 MCG TABLET PO (07:10)
[2024-03-01 07:36] VITALS: BP 161/77; PULSE 64; RESP 14; TEMP 36.2; O2SAT 95
[2024-03-01] MEDS: Lithium Carbonate 300 MG TABLET 150 MG PO (08:10)
[2024-03-01] MEDS: Propranolol HCL 40 MG TABLET 80 MG PO ×3 (08:11→21:04)
[2024-03-01] MEDS: Benztropine Mesylate 0.5 MG TABLET PO (08:11)
[2024-03-01] MEDS: lisinopriL 10 MG TABLET PO (08:11)
[2024-03-01] MEDS: Magnesium Oxide 400 MG TABLET PO (08:12)
[2024-03-01] MEDS: Lithium Carbonate ER 300 MG TABLET.ER PO ×2 (08:12→21:04)
[2024-03-01 08:55] LABS: Glucose, Whole Blood 135 mg/dL (60-115)
[2024-03-01] MEDS: Insulin Lispro 100 UNIT/ML 3 ML VIAL SUBCUT ×3 (09:07→17:54)
[2024-03-01] MEDS: Insulin Glargine,Hum.rec.anlog 100 UNIT/ML 10 ML VIAL 35 UNIT SUBCUT ×2 (09:08→21:01)
[2024-03-01] MEDS: Lidocaine 4 % Patch ADH..PATCH 1 PATCH TRANSDERMA (09:37)
[2024-03-01] MEDS: Artificial Tears 15 ML DROPS 1 DROP EYE-BOTH (09:39)
[2024-03-01] MEDS: Loperamide HCl 2 MG CAPSULE PO ×2 (11:39→21:05)
[2024-03-01 12:53] LABS: Glucose, Whole Blood 188 mg/dL (60-115)
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
[2024-03-01 15:55] VITALS: BP 121/65; PULSE 85
[2024-03-01] MEDS: Acetaminophen 325 MG TABLET 650 MG PO (16:05)
[2024-03-01 17:49] LABS: Glucose, Whole Blood 261 mg/dL (60-115)
[2024-03-01 19:49] LABS: Glucose, Whole Blood 271 mg/dL (60-115)
[2024-03-01 20:00] VITALS: BP 127/67; PULSE 69; RESP 18; TEMP 36.1; O2SAT 100
[2024-03-01] MEDS: Divalproex Sodium ER 500 MG TAB.ER.24H 2000 MG PO (21:03)
[2024-03-01] MEDS: risperiDONE 2 MG TABLET PO (21:04)
[2024-03-01] MEDS: OLANZapine 5 MG TABLET PO (21:05)
[2024-03-01] MEDS: Divalproex Sodium ER 250 MG TAB.ER.24H PO (21:05)
[2024-03-01] MEDS: traZODone HCL 50 MG TABLET PO (21:05)
[2024-03-02] MEDS: Levothyroxine Sodium 125 MCG TABLET PO (06:41)
[2024-03-02 08:00] VITALS: BP 131/62; PULSE 81; RESP 16; TEMP 36.1; O2SAT 98
[2024-03-02 08:23] LABS: Glucose, Whole Blood 194 mg/dL (60-115)
[2024-03-02 08:35] VITALS: BP 131/62; PULSE 81
[2024-03-02] MEDS: Lithium Carbonate 300 MG TABLET 150 MG PO (08:35)
[2024-03-02] MEDS: Propranolol HCL 40 MG TABLET 80 MG PO ×3 (08:35→21:01)
[2024-03-02] MEDS: Magnesium Oxide 400 MG TABLET PO (08:35)
[2024-03-02 08:36] VITALS: BP 131/62
[2024-03-02] MEDS: lisinopriL 10 MG TABLET PO (08:36)
[2024-03-02] MEDS: Lidocaine 4 % Patch ADH..PATCH 1 PATCH TRANSDERMA ×2 (08:36→13:02)
[2024-03-02] MEDS: Lithium Carbonate ER 300 MG TABLET.ER PO ×2 (08:36→21:02)
[2024-03-02] MEDS: Insulin Glargine,Hum.rec.anlog 100 UNIT/ML 10 ML VIAL 35 UNIT SUBCUT ×2 (08:37→20:58)
[2024-03-02] MEDS: Insulin Lispro 100 UNIT/ML 3 ML VIAL SUBCUT ×3 (08:54→17:55)
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
[2024-03-02 12:47] LABS: Glucose, Whole Blood 252 mg/dL (60-115)
[2024-03-02 14:58] VITALS: BP 132/72; PULSE 73
[2024-03-02 15:01] VITALS: BP 132/72; PULSE 73
[2024-03-02 17:49] LABS: Glucose, Whole Blood 147 mg/dL (60-115)
[2024-03-02 20:00] VITALS: BP 135/77; PULSE 99; RESP 16; TEMP 36.1; O2SAT 99
[2024-03-02] MEDS: Divalproex Sodium ER 500 MG TAB.ER.24H 2000 MG PO (21:02)
[2024-03-02] MEDS: Divalproex Sodium ER 250 MG TAB.ER.24H PO (21:02)
[2024-03-02] MEDS: risperiDONE 2 MG TABLET PO (21:03)
[2024-03-02] MEDS: OLANZapine 5 MG TABLET PO (21:03)
[2024-03-02 21:14] LABS: Glucose, Whole Blood 210 mg/dL (60-115)
[2024-03-03] MEDS: Levothyroxine Sodium 125 MCG TABLET PO (06:49)
[2024-03-03 08:45] LABS: Glucose, Whole Blood 159 mg/dL (60-115)
[2024-03-03 09:00] VITALS: BP 151/69; PULSE 74; RESP 18; TEMP 36.3; O2SAT 97
[2024-03-03] MEDS: Lithium Carbonate 300 MG TABLET 150 MG PO (09:07)
[2024-03-03 09:08] VITALS: BP 151/69; PULSE 74
[2024-03-03] MEDS: Lithium Carbonate ER 300 MG TABLET.ER PO ×2 (09:08→20:55)
[2024-03-03] MEDS: Propranolol HCL 40 MG TABLET 80 MG PO ×3 (09:08→20:55)
[2024-03-03] MEDS: lisinopriL 10 MG TABLET PO (09:08)
[2024-03-03] MEDS: Magnesium Oxide 400 MG TABLET PO (09:08)
[2024-03-03] MEDS: Lidocaine 4 % Patch ADH..PATCH 1 PATCH TRANSDERMA (09:12)
[2024-03-03] MEDS: Insulin Lispro 100 UNIT/ML 3 ML VIAL SUBCUT ×3 (09:15→17:57)
[2024-03-03] MEDS: Insulin Glargine,Hum.rec.anlog 100 UNIT/ML 10 ML VIAL 35 UNIT SUBCUT ×2 (09:19→20:52)
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
[2024-03-03 12:52] LABS: Glucose, Whole Blood 236 mg/dL (60-115)
[2024-03-03 15:01] VITALS: BP 133/79; PULSE 115
[2024-03-03 17:43] LABS: Glucose, Whole Blood 303 mg/dL (60-115)
[2024-03-03 20:00] VITALS: BP 136/60; PULSE 82; RESP 18; TEMP 36.6; O2SAT 98
[2024-03-03] MEDS: Divalproex Sodium ER 500 MG TAB.ER.24H 2000 MG PO (20:54)
[2024-03-03] MEDS: risperiDONE 2 MG TABLET PO (20:55)
[2024-03-03] MEDS: Divalproex Sodium ER 250 MG TAB.ER.24H PO (20:55)
[2024-03-03] MEDS: traZODone HCL 50 MG TABLET PO (20:56)
[2024-03-03] MEDS: OLANZapine 5 MG TABLET PO (20:56)
[2024-03-03 21:06] LABS: Glucose, Whole Blood 241 mg/dL (60-115)
[2024-03-03] MEDS: Acetaminophen 325 MG TABLET 650 MG PO (21:50)
[2024-03-04] MEDS: Levothyroxine Sodium 125 MCG TABLET PO (06:55)
[2024-03-04 07:20] VITALS: BP 137/62; PULSE 71; RESP 14; O2SAT 98
[2024-03-04 08:12] VITALS: BP 137/62; PULSE 71
[2024-03-04] MEDS: Propranolol HCL 40 MG TABLET 80 MG PO ×3 (08:12→20:49)
[2024-03-04] MEDS: Lithium Carbonate ER 300 MG TABLET.ER PO ×2 (08:12→20:50)
[2024-03-04 08:13] VITALS: BP 137/62
[2024-03-04] MEDS: Lithium Carbonate 300 MG TABLET 150 MG PO (08:13)
[2024-03-04] MEDS: Magnesium Oxide 400 MG TABLET PO (08:13)
[2024-03-04] MEDS: lisinopriL 10 MG TABLET PO (08:13)
[2024-03-04] MEDS: Lidocaine 4 % Patch ADH..PATCH 1 PATCH TRANSDERMA (08:15)
[2024-03-04 08:48] LABS: Glucose, Whole Blood 165 mg/dL (60-115)
[2024-03-04] MEDS: Insulin Lispro 100 UNIT/ML 3 ML VIAL SUBCUT ×3 (09:16→18:18)
[2024-03-04] MEDS: Insulin Glargine,Hum.rec.anlog 100 UNIT/ML 10 ML VIAL 35 UNIT SUBCUT ×2 (09:17→21:20)
[2024-03-04] MEDS: Calcium Carbonate 750 MG TAB.CHEW PO (09:47)
[2024-03-04 13:13] LABS: Glucose, Whole Blood 171 mg/dL (60-115)
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
[2024-03-04 15:07] VITALS: BP 149/65; PULSE 77
[2024-03-04 18:12] LABS: Glucose, Whole Blood 315 mg/dL (60-115)
[2024-03-04 20:36] LABS: Glucose, Whole Blood 248 mg/dL (60-115)
[2024-03-04 20:49] VITALS: BP 125/58; PULSE 78; RESP 17; TEMP 36.4; O2SAT 96
[2024-03-04] MEDS: Divalproex Sodium ER 250 MG TAB.ER.24H PO (20:49)
[2024-03-04] MEDS: risperiDONE 2 MG TABLET PO (20:49)
[2024-03-04] MEDS: OLANZapine 5 MG TABLET PO (20:50)
[2024-03-04] MEDS: Divalproex Sodium ER 500 MG TAB.ER.24H 2000 MG PO (20:50)
[2024-03-04] MEDS: traZODone HCL 50 MG TABLET PO (22:25)
[2024-03-05] MEDS: Levothyroxine Sodium 125 MCG TABLET PO (06:38)
[2024-03-05 08:00] VITALS: BP 130/60; PULSE 68; RESP 16; TEMP 36.2; O2SAT 98
[2024-03-05 08:41] LABS: Glucose, Whole Blood 101 mg/dL (60-115)
[2024-03-05] MEDS: lisinopriL 10 MG TABLET PO (08:58)
[2024-03-05] MEDS: Propranolol HCL 40 MG TABLET 80 MG PO ×2 (08:58→19:51)
[2024-03-05] MEDS: Lithium Carbonate ER 300 MG TABLET.ER PO ×2 (08:59→19:55)
[2024-03-05] MEDS: Magnesium Oxide 400 MG TABLET PO (08:59)
[2024-03-05] MEDS: Lithium Carbonate 300 MG TABLET 150 MG PO (08:59)
[2024-03-05] MEDS: Insulin Glargine,Hum.rec.anlog 100 UNIT/ML 10 ML VIAL 35 UNIT SUBCUT ×2 (09:25→19:51)
[2024-03-05 12:51] LABS: Glucose, Whole Blood 168 mg/dL (60-115)
[2024-03-05] MEDS: Insulin Lispro 100 UNIT/ML 3 ML VIAL SUBCUT ×2 (12:58→17:55)
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
--- NOTE | 2024-03-05 14:43 | PC.NURSE ---
Pt seen for individual OT intervention in her room on this date, participated in [facility] screen. Upon approach, pt was calm, disheveled, and malodorous. Pt compliant and willing to participate in cognitive screen, scored a 10/30, indicating moderate to severe cognitive impairment. Pt originally scored a 9/30, but was given an extra point due to pt only finishing High School. Pt demonstrated deficits in visuospatial/executive function, naming, attention and abstraction. Pt demonstrated to be oriented to time and place. Due to pt's current level of cognition and care, it is recommended pt be continuously supervised for safety and assisted for ADLs and IADLs.
[2024-03-05 15:31] VITALS: BP 110/58; PULSE 75; RESP 18
[2024-03-05] MEDS: Acetaminophen 325 MG TABLET 650 MG PO (17:13)
--- NOTE | 2024-03-05 17:14 | PC.NURSE ---
pt requested tylenol for 10/10 back pain, re educated on pain scale
[2024-03-05] MEDS: Lidocaine 4 % Patch ADH..PATCH 1 PATCH TRANSDERMA (17:26)
[2024-03-05 17:45] LABS: Glucose, Whole Blood 291 mg/dL (60-115)
[2024-03-05 19:51] VITALS: BP 140/63; PULSE 85
[2024-03-05] MEDS: Divalproex Sodium ER 250 MG TAB.ER.24H PO (19:55)
[2024-03-05] MEDS: Divalproex Sodium ER 500 MG TAB.ER.24H 2000 MG PO (19:55)
[2024-03-05] MEDS: OLANZapine 5 MG TABLET PO (19:56)
[2024-03-05] MEDS: risperiDONE 2 MG TABLET PO (19:56)
[2024-03-05] MEDS: traZODone HCL 50 MG TABLET PO (19:56)
[2024-03-05 20:00] VITALS: BP 140/63; PULSE 85; RESP 116; TEMP 36.4; O2SAT 98
[2024-03-05 20:14] LABS: Glucose, Whole Blood 298 mg/dL (60-115)
[2024-03-06] MEDS: Levothyroxine Sodium 125 MCG TABLET PO (06:21)
[2024-03-06 08:00] VITALS: BP 149/63; PULSE 61; RESP 14; TEMP 36; O2SAT 96
[2024-03-06 08:45] LABS: Glucose, Whole Blood 117 mg/dL (60-115)
[2024-03-06] MEDS: Lithium Carbonate 300 MG TABLET 150 MG PO (08:57)
[2024-03-06] MEDS: Propranolol HCL 40 MG TABLET 80 MG PO ×2 (08:57→20:22)
[2024-03-06] MEDS: Lithium Carbonate ER 300 MG TABLET.ER PO ×2 (08:58→20:22)
[2024-03-06] MEDS: Magnesium Oxide 400 MG TABLET PO (08:58)
[2024-03-06] MEDS: lisinopriL 10 MG TABLET PO (08:58)
[2024-03-06] MEDS: Lidocaine 4 % Patch ADH..PATCH 1 PATCH TRANSDERMA (09:00)
[2024-03-06] MEDS: Insulin Lispro 100 UNIT/ML 3 ML VIAL SUBCUT ×4 (09:19→20:44)
[2024-03-06] MEDS: Insulin Glargine,Hum.rec.anlog 100 UNIT/ML 10 ML VIAL 35 UNIT SUBCUT ×2 (09:19→20:43)
[2024-03-06 13:00] LABS: Glucose, Whole Blood 238 mg/dL (60-115)
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
[2024-03-06 14:53] VITALS: BP 110/57; PULSE 81
[2024-03-06 17:48] LABS: Glucose, Whole Blood 289 mg/dL (60-115)
[2024-03-06 19:59] LABS: Glucose, Whole Blood 389 mg/dL (60-115)
[2024-03-06 20:20] VITALS: BP 158/68; PULSE 87; RESP 18; TEMP 36.8; O2SAT 95
[2024-03-06] MEDS: Divalproex Sodium ER 500 MG TAB.ER.24H 2000 MG PO (20:20)
[2024-03-06] MEDS: Divalproex Sodium ER 250 MG TAB.ER.24H PO (20:21)
[2024-03-06] MEDS: Acetaminophen 325 MG TABLET 650 MG PO (20:21)
[2024-03-06] MEDS: OLANZapine 5 MG TABLET PO (20:21)
[2024-03-06] MEDS: risperiDONE 2 MG TABLET PO (20:21)
[2024-03-07] MEDS: Levothyroxine Sodium 125 MCG TABLET PO (06:38)
[2024-03-07 07:00] VITALS: BMI 42.4
[2024-03-07 07:40] VITALS: BP 135/69; PULSE 68; RESP 16; TEMP 36.3; O2SAT 97
[2024-03-07 08:36] LABS: Glucose, Whole Blood 129 mg/dL (60-115)
[2024-03-07 08:41] VITALS: BP 135/69; PULSE 68
[2024-03-07] MEDS: Propranolol HCL 40 MG TABLET 80 MG PO ×3 (08:41→21:49)
[2024-03-07] MEDS: Lithium Carbonate 300 MG TABLET 150 MG PO (08:42)
[2024-03-07 08:43] VITALS: BP 135/69
[2024-03-07] MEDS: Lithium Carbonate ER 300 MG TABLET.ER PO ×2 (08:43→20:53)
[2024-03-07] MEDS: lisinopriL 10 MG TABLET PO (08:43)
[2024-03-07] MEDS: Insulin Glargine,Hum.rec.anlog 100 UNIT/ML 10 ML VIAL 35 UNIT SUBCUT ×2 (08:43→20:51)
[2024-03-07] MEDS: Lidocaine 4 % Patch ADH..PATCH 1 PATCH TRANSDERMA (08:44)
[2024-03-07] MEDS: Magnesium Oxide 400 MG TABLET PO (08:44)
[2024-03-07] MEDS: Insulin Lispro 100 UNIT/ML 3 ML VIAL SUBCUT ×4 (09:04→20:50)
[2024-03-07 12:35] LABS: Glucose, Whole Blood 296 mg/dL (60-115)
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
[2024-03-07] MEDS: Acetaminophen 325 MG TABLET 650 MG PO (14:52)
[2024-03-07 14:53] VITALS: BP 126/60; PULSE 78
[2024-03-07] MEDS: Cyclobenzaprine HCl 10 MG TABLET PO (14:54)
[2024-03-07 17:33] LABS: Glucose, Whole Blood 260 mg/dL (60-115)
[2024-03-07 20:00] VITALS: BP 125/69; PULSE 77; RESP 16; TEMP 36.6; O2SAT 97
[2024-03-07 20:33] LABS: Glucose, Whole Blood 338 mg/dL (60-115)
[2024-03-07] MEDS: traZODone HCL 50 MG TABLET PO (20:53)
[2024-03-07] MEDS: Divalproex Sodium ER 500 MG TAB.ER.24H 2000 MG PO (20:53)
[2024-03-07] MEDS: OLANZapine 5 MG TABLET PO (20:54)
[2024-03-07] MEDS: Divalproex Sodium ER 250 MG TAB.ER.24H PO (20:54)
[2024-03-07] MEDS: risperiDONE 2 MG TABLET PO (20:54)
[2024-03-07 21:49] VITALS: BP 130/70; PULSE 82
[2024-03-08] MEDS: Levothyroxine Sodium 125 MCG TABLET PO (06:43)
[2024-03-08 08:00] VITALS: BP 145/68; PULSE 74; RESP 17; TEMP 36.3; O2SAT 96
[2024-03-08 08:36] LABS: Glucose, Whole Blood 126 mg/dL (60-115)
[2024-03-08] MEDS: Insulin Glargine,Hum.rec.anlog 100 UNIT/ML 10 ML VIAL 35 UNIT SUBCUT ×2 (08:58→20:53)
[2024-03-08] MEDS: Insulin Lispro 100 UNIT/ML 3 ML VIAL SUBCUT ×4 (08:58→20:52)
[2024-03-08] MEDS: Magnesium Oxide 400 MG TABLET PO (09:01)
[2024-03-08] MEDS: Lithium Carbonate ER 300 MG TABLET.ER PO ×2 (09:01→20:46)
[2024-03-08] MEDS: Lithium Carbonate 300 MG TABLET 150 MG PO (09:02)
[2024-03-08 09:03] VITALS: BP 145/68
[2024-03-08] MEDS: lisinopriL 10 MG TABLET PO (09:03)
[2024-03-08 09:06] VITALS: BP 145/68; PULSE 74
[2024-03-08] MEDS: Propranolol HCL 40 MG TABLET 80 MG PO ×3 (09:06→20:47)
[2024-03-08 12:53] LABS: Glucose, Whole Blood 238 mg/dL (60-115)
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
[2024-03-08 15:01] VITALS: BP 126/59; PULSE 81
[2024-03-08 18:26] LABS: Glucose, Whole Blood 290 mg/dL (60-115)
[2024-03-08 20:25] VITALS: BP 141/73; PULSE 86; RESP 16; TEMP 36.4; O2SAT 98
[2024-03-08 20:40] LABS: Glucose, Whole Blood 260 mg/dL (60-115)
[2024-03-08] MEDS: OLANZapine 5 MG TABLET PO (20:46)
[2024-03-08] MEDS: traZODone HCL 50 MG TABLET PO (20:46)
[2024-03-08] MEDS: Divalproex Sodium ER 250 MG TAB.ER.24H PO (20:46)
[2024-03-08] MEDS: risperiDONE 2 MG TABLET PO (20:47)
[2024-03-08] MEDS: Divalproex Sodium ER 500 MG TAB.ER.24H 2000 MG PO (20:47)
[2024-03-09] MEDS: Levothyroxine Sodium 125 MCG TABLET PO (07:23)
[2024-03-09 07:50] VITALS: BP 149/65; PULSE 76; RESP 16; TEMP 36.4; O2SAT 98
[2024-03-09 08:53] LABS: Glucose, Whole Blood 331 mg/dL (60-115)
[2024-03-09] MEDS: Insulin Glargine,Hum.rec.anlog 100 UNIT/ML 10 ML VIAL 35 UNIT SUBCUT ×2 (09:04→20:45)
[2024-03-09] MEDS: Propranolol HCL 40 MG TABLET 80 MG PO ×3 (09:05→20:41)
[2024-03-09] MEDS: lisinopriL 10 MG TABLET PO (09:05)
[2024-03-09] MEDS: Insulin Lispro 100 UNIT/ML 3 ML VIAL SUBCUT ×4 (09:05→20:46)
[2024-03-09] MEDS: Magnesium Oxide 400 MG TABLET PO (09:05)
[2024-03-09] MEDS: Lithium Carbonate 300 MG TABLET 150 MG PO (09:06)
[2024-03-09] MEDS: Lithium Carbonate ER 300 MG TABLET.ER PO ×2 (09:06→20:41)
[2024-03-09] MEDS: Lidocaine 4 % Patch ADH..PATCH 1 PATCH TRANSDERMA (09:07)
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
[2024-03-09 12:22] LABS: Glucose, Whole Blood 248 mg/dL (60-115)
[2024-03-09 15:26] VITALS: BP 132/78; PULSE 84
[2024-03-09 17:55] LABS: Glucose, Whole Blood 357 mg/dL (60-115)
[2024-03-09 19:50] VITALS: BP 138/71; PULSE 76; RESP 16; TEMP 36.4; O2SAT 95
[2024-03-09 20:30] LABS: Glucose, Whole Blood 322 mg/dL (60-115)
[2024-03-09] MEDS: OLANZapine 5 MG TABLET PO (20:41)
[2024-03-09] MEDS: Divalproex Sodium ER 250 MG TAB.ER.24H PO (20:41)
[2024-03-09] MEDS: risperiDONE 2 MG TABLET PO (20:41)
[2024-03-09] MEDS: traZODone HCL 50 MG TABLET PO ×2 (20:41→23:40)
[2024-03-09] MEDS: Divalproex Sodium ER 500 MG TAB.ER.24H 2000 MG PO (20:41)
[2024-03-09] MEDS: hydrOXYzine HCL 25 MG TABLET PO (23:40)
[2024-03-10] MEDS: Acetaminophen 325 MG TABLET 650 MG PO (02:11)
[2024-03-10] MEDS: Levothyroxine Sodium 125 MCG TABLET PO (05:07)
[2024-03-10 07:39] VITALS: BP 135/69; PULSE 71; RESP 16; TEMP 36.4; O2SAT 96
[2024-03-10 08:40] LABS: Creatinine Clr Calc Pharmacy 91.8; Estimated Glomerular Filt Rate > 60
[2024-03-10 08:57] LABS: Glucose, Whole Blood 190 mg/dL (60-115)
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
[2024-03-10] MEDS: Insulin Lispro 100 UNIT/ML 3 ML VIAL SUBCUT ×4 (09:07→20:58)
[2024-03-10] MEDS: Lidocaine 4 % Patch ADH..PATCH 1 PATCH TRANSDERMA (09:08)
[2024-03-10] MEDS: Insulin Glargine,Hum.rec.anlog 100 UNIT/ML 10 ML VIAL 35 UNIT SUBCUT ×2 (09:08→20:58)
[2024-03-10] MEDS: Lithium Carbonate 300 MG TABLET 150 MG PO (09:09)
[2024-03-10] MEDS: Magnesium Oxide 400 MG TABLET PO (09:09)
[2024-03-10 09:10] VITALS: BP 130/70; PULSE 74
[2024-03-10] MEDS: Propranolol HCL 40 MG TABLET 80 MG PO ×2 (09:10→20:59)
[2024-03-10] MEDS: lisinopriL 10 MG TABLET PO (09:10)
[2024-03-10] MEDS: Lithium Carbonate ER 300 MG TABLET.ER PO ×2 (09:11→20:59)
[2024-03-10 12:35] LABS: Glucose, Whole Blood 213 mg/dL (60-115)
[2024-03-10 15:09] VITALS: BP 88/56; PULSE 71
[2024-03-10 17:53] LABS: Glucose, Whole Blood 357 mg/dL (60-115)
[2024-03-10] MEDS: metFORMIN HCl ER 500 MG TAB.ER.24H 1000 MG PO (17:57)
[2024-03-10 19:42] VITALS: BP 156/70; PULSE 73; RESP 16; TEMP 36.2; O2SAT 98
[2024-03-10 20:00] VITALS: BP 156/70; PULSE 73; RESP 16; TEMP 36.2; O2SAT 98
[2024-03-10 20:26] LABS: Glucose, Whole Blood 288 mg/dL (60-115)
[2024-03-10] MEDS: OLANZapine 5 MG TABLET PO (20:59)
[2024-03-10] MEDS: Divalproex Sodium ER 500 MG TAB.ER.24H 2000 MG PO (20:59)
[2024-03-10] MEDS: Divalproex Sodium ER 250 MG TAB.ER.24H PO (21:00)
[2024-03-10] MEDS: Artificial Tears 15 ML DROPS 1 DROP EYE-BOTH (21:00)
[2024-03-10] MEDS: risperiDONE 2 MG TABLET PO (21:01)
[2024-03-11] MEDS: Levothyroxine Sodium 125 MCG TABLET PO (06:41)
[2024-03-11 07:46] VITALS: BP 123/61; PULSE 69; RESP 14; TEMP 36.4; O2SAT 97
[2024-03-11 08:32] LABS: Glucose, Whole Blood 88 mg/dL (60-115)
[2024-03-11] MEDS: Lithium Carbonate ER 300 MG TABLET.ER PO ×2 (09:10→20:55)
[2024-03-11] MEDS: lisinopriL 10 MG TABLET PO (09:10)
[2024-03-11] MEDS: Lithium Carbonate 300 MG TABLET 150 MG PO (09:10)
[2024-03-11] MEDS: Magnesium Oxide 400 MG TABLET PO (09:10)
[2024-03-11] MEDS: Propranolol HCL 40 MG TABLET 80 MG PO ×3 (09:11→20:55)
[2024-03-11] MEDS: Insulin Glargine,Hum.rec.anlog 100 UNIT/ML 10 ML VIAL 35 UNIT SUBCUT ×2 (09:14→21:19)
[2024-03-11 12:43] LABS: Glucose, Whole Blood 210 mg/dL (60-115)
[2024-03-11] MEDS: Insulin Lispro 100 UNIT/ML 3 ML VIAL SUBCUT ×3 (12:49→21:20)
[2024-03-11 14:57] VITALS: BP 123/60; PULSE 85
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
[2024-03-11 17:54] LABS: Glucose, Whole Blood 304 mg/dL (60-115)
[2024-03-11] MEDS: metFORMIN HCl ER 500 MG TAB.ER.24H 1000 MG PO (18:02)
[2024-03-11 20:00] VITALS: BP 143/68; PULSE 83; RESP 16; TEMP 36.4; O2SAT 97
[2024-03-11 20:18] LABS: Glucose, Whole Blood 305 mg/dL (60-115)
[2024-03-11 20:41] LABS: Lithium 0.65 mmol/L (0.60-1.20)
[2024-03-11 20:45] LABS: Valproate 41.4 mcg/mL (50.0-100.0)
[2024-03-11] MEDS: Divalproex Sodium ER 500 MG TAB.ER.24H 2000 MG PO (20:54)
[2024-03-11] MEDS: risperiDONE 2 MG TABLET PO (20:56)
[2024-03-11] MEDS: Divalproex Sodium ER 250 MG TAB.ER.24H PO (20:56)
[2024-03-11] MEDS: OLANZapine 5 MG TABLET PO (20:56)
[2024-03-11 20:58] LABS: Alanine Aminotransferase 20 U/L (0-31); Albumin Level 3.6 g/dL (3.5-5.0); Alkaline Phosphatase 88 U/L (39-117); Anion Gap 12 (12-20); Aspartate Amino Transferase 17 U/L (5-31); Bilirubin Direct < 0.2 mg/dL (0.0-0.5); Bilirubin Total 0.2 mg/dL (0.0-1.0); Blood Urea Nitrogen 19 mg/dL (9-16); Carbon Dioxide 28 mmol/L (22-29); Chloride 102 mmol/L (96-108); Estimated Glomerular Filt Rate 55; Glucose Random 319 mg/dL (60-115); Sodium 137 mmol/L (135-145); Total Protein 6.3 g/dL (6.5-8.0)
[2024-03-11] MEDS: Acetaminophen 325 MG TABLET 650 MG PO (23:17)
[2024-03-11] MEDS: traZODone HCL 50 MG TABLET PO (23:17)
[2024-03-12] MEDS: Levothyroxine Sodium 125 MCG TABLET PO (06:46)
[2024-03-12 08:00] VITALS: BP 117/60; PULSE 71; TEMP 36.4; O2SAT 97
[2024-03-12 08:36] LABS: Glucose, Whole Blood 92 mg/dL (60-115)
[2024-03-12] MEDS: Magnesium Oxide 400 MG TABLET PO (08:57)
[2024-03-12] MEDS: Lithium Carbonate 300 MG TABLET 150 MG PO (08:57)
[2024-03-12] MEDS: Lithium Carbonate ER 300 MG TABLET.ER PO ×2 (08:57→20:55)
[2024-03-12] MEDS: lisinopriL 10 MG TABLET PO (08:59)
[2024-03-12] MEDS: Propranolol HCL 40 MG TABLET 80 MG PO ×3 (08:59→20:54)
[2024-03-12] MEDS: Insulin Glargine,Hum.rec.anlog 100 UNIT/ML 10 ML VIAL 35 UNIT SUBCUT ×2 (09:00→20:53)
[2024-03-12 12:49] LABS: Glucose, Whole Blood 248 mg/dL (60-115)
[2024-03-12] MEDS: Insulin Lispro 100 UNIT/ML 3 ML VIAL SUBCUT ×3 (12:54→20:52)
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
[2024-03-12 15:59] VITALS: BP 147/63; PULSE 82; RESP 16; O2SAT 98
[2024-03-12 18:15] LABS: Glucose, Whole Blood 229 mg/dL (60-115)
[2024-03-12] MEDS: metFORMIN HCl ER 500 MG TAB.ER.24H 1000 MG PO (18:17)
[2024-03-12 20:00] VITALS: BP 138/61; PULSE 80; RESP 18; TEMP 36.4; O2SAT 97
[2024-03-12 20:38] LABS: Glucose, Whole Blood 243 mg/dL (60-115)
[2024-03-12] MEDS: Divalproex Sodium ER 500 MG TAB.ER.24H 2000 MG PO (20:55)
[2024-03-12] MEDS: risperiDONE 2 MG TABLET PO (20:55)
[2024-03-12] MEDS: Divalproex Sodium ER 250 MG TAB.ER.24H PO (20:55)
[2024-03-12] MEDS: OLANZapine 5 MG TABLET PO (20:56)
[2024-03-13] MEDS: Levothyroxine Sodium 125 MCG TABLET PO (06:46)
[2024-03-13 07:25] VITALS: BP 137/65; PULSE 70; RESP 16; TEMP 36.4; O2SAT 97
[2024-03-13 09:10] LABS: Glucose, Whole Blood 125 mg/dL (60-115)
[2024-03-13] MEDS: Insulin Lispro 100 UNIT/ML 3 ML VIAL SUBCUT ×4 (09:30→20:42)
[2024-03-13] MEDS: Insulin Glargine,Hum.rec.anlog 100 UNIT/ML 10 ML VIAL 35 UNIT SUBCUT ×2 (09:31→20:42)
[2024-03-13] MEDS: Lithium Carbonate ER 300 MG TABLET.ER PO ×2 (09:31→20:37)
[2024-03-13 09:32] VITALS: BP 137/65
[2024-03-13] MEDS: Lithium Carbonate 300 MG TABLET 150 MG PO (09:32)
[2024-03-13] MEDS: Magnesium Oxide 400 MG TABLET PO (09:32)
[2024-03-13] MEDS: lisinopriL 10 MG TABLET PO (09:32)
[2024-03-13 09:33] VITALS: BP 137/65; PULSE 70
[2024-03-13] MEDS: Propranolol HCL 40 MG TABLET 80 MG PO (09:33)
[2024-03-13] MEDS: Lidocaine 4 % Patch ADH..PATCH 1 PATCH TRANSDERMA (09:39)
[2024-03-13 12:51] LABS: Glucose, Whole Blood 255 mg/dL (60-115)
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
[2024-03-13 15:54] VITALS: BP 130/58; PULSE 81
[2024-03-13 17:46] LABS: Glucose, Whole Blood 243 mg/dL (60-115)
[2024-03-13] MEDS: metFORMIN HCl ER 500 MG TAB.ER.24H 1000 MG PO (18:02)
[2024-03-13] MEDS: Acetaminophen 325 MG TABLET 650 MG PO (19:47)
[2024-03-13 20:18] LABS: Glucose, Whole Blood 332 mg/dL (60-115)
[2024-03-13 20:20] VITALS: BP 133/70; PULSE 80; RESP 16; TEMP 36.3; O2SAT 97
[2024-03-13] MEDS: Propranolol HCL 20 MG TABLET PO (20:36)
[2024-03-13] MEDS: Divalproex Sodium ER 500 MG TAB.ER.24H 2000 MG PO (20:37)
[2024-03-13] MEDS: risperiDONE 2 MG TABLET PO (20:37)
[2024-03-13] MEDS: traZODone HCL 50 MG TABLET PO (20:37)
[2024-03-13] MEDS: OLANZapine 5 MG TABLET PO (20:37)
[2024-03-13] MEDS: hydrOXYzine HCL 25 MG TABLET PO (20:37)
[2024-03-13] MEDS: Divalproex Sodium ER 250 MG TAB.ER.24H PO (20:37)
[2024-03-14] MEDS: Levothyroxine Sodium 125 MCG TABLET PO (06:45)
[2024-03-14 07:20] VITALS: BP 132/59; PULSE 75; RESP 16; TEMP 36.9; O2SAT 98
[2024-03-14 08:56] LABS: Glucose, Whole Blood 90 mg/dL (60-115)
[2024-03-14 09:03] VITALS: BP 135/65; PULSE 78
[2024-03-14] MEDS: Lithium Carbonate 300 MG TABLET 150 MG PO (09:03)
[2024-03-14] MEDS: Propranolol HCL 20 MG TABLET PO (09:03)
[2024-03-14 09:04] VITALS: BP 135/65
[2024-03-14] MEDS: Lidocaine 4 % Patch ADH..PATCH 1 PATCH TRANSDERMA (09:04)
[2024-03-14] MEDS: lisinopriL 10 MG TABLET PO (09:04)
[2024-03-14] MEDS: Lithium Carbonate ER 300 MG TABLET.ER PO (09:04)
[2024-03-14] MEDS: Insulin Glargine,Hum.rec.anlog 100 UNIT/ML 10 ML VIAL 35 UNIT SUBCUT (09:05)
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
[2024-03-14] MEDS: Acetaminophen 325 MG TABLET 650 MG PO (10:28)
== END 2024-03-14 10:30 | DRG 885 ==
PROVIDERS: Clinical Nurse Specialist Psychiatric/Mental Health, Adult; Internal Medicine; Physician Assistant; Psychiatry & Neurology Psychiatry; Social Worker; Admitting Provider Psychiatry & Neurology Psychiatry; PCP Family Medicine; Visit Provider Psychiatry & Neurology Psychiatry
DX: F25.0 Schizoaffective disorder, bipolar type (principal); E11.65 Type 2 diabetes mellitus with hyperglycemia; F03.90 Unspecified dementia, unspecified severity, without behavioral disturbance, psychotic disturbance, mood disturbance, and anxiety; E78.5 Hyperlipidemia, unspecified; I10 Essential (primary) hypertension; E03.9 Hypothyroidism, unspecified; E11.649 Type 2 diabetes mellitus with hypoglycemia without coma; Z91.148 Patient's other noncompliance with medication regimen for other reason; Z91.119 Patient's noncompliance with dietary regimen due to unspecified reason; Z75.1 Person awaiting admission to adequate facility elsewhere; Z79.4 Long term (current) use of insulin; Z79.890 Hormone replacement therapy; Z79.899 Other long term (current) drug therapy
CPT/HCPCS: 36415; 80048; 80053; 80061; 80076; 80164; 80178; 81001; 81003; 82140; 82565; 82947; 83036; 84443; 85025; 92950; J1200; J2060; J2359; J2679

== ENCOUNTER → 2023-11-14 18:48 | Outpatient (BNV) | payer MEDICARE, MEDICAID, SELFPAY | PROVIDERS: Admitting Provider Psychiatry & Neurology Psychiatry; PCP Family Medicine; Visit Provider Psychiatry & Neurology Psychiatry | DX: F25.0 Schizoaffective disorder, bipolar type (principal) | CPT/HCPCS: 90792; 99231; 99232; 99239; 99499 ==

== ENCOUNTER → 2023-11-14 18:48 | Outpatient (BNV) | payer MEDICARE, MEDICAID, SELFPAY | PROVIDERS: Admitting Provider Psychiatry & Neurology Psychiatry; PCP Family Medicine; Visit Provider Physician Assistant | DX: E11.9 Type 2 diabetes mellitus without complications (principal) | CPT/HCPCS: 99222; 99231; 99232; 99499 ==

== ENCOUNTER → 2023-11-14 18:48 | Outpatient (BNV) | payer MEDICARE, MEDICAID, SELFPAY | PROVIDERS: Admitting Provider Psychiatry & Neurology Psychiatry; PCP Family Medicine; Visit Provider Psychiatry & Neurology Psychiatry | DX: F25.0 Schizoaffective disorder, bipolar type (principal) | CPT/HCPCS: 99232 ==